=== PATIENT | female | born 1955 | race Caucasian/White ===

== ENCOUNTER 2016-09-09 12:03 | Outpatient (RCR) | payer OTHER ==
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
[~2016-09-09 12:03] MED LIST: AMLO10TA82 PO; AMLO5TAB2 PO; ASP81CT PO; ATOR40TA70 PO; CYCL10TA9 PO; DZPM2T PO; ENAL20TA PO; FLUC150T2 PO; Flexeril PO; GABA600T2 PO; GBPN300C PO; GLYB5TAB6 PO; HYDR-3812 PO; MECL-124 PO; METF100028 PO; METF500T4 PO; SULF-222 PO; TRAM50TA2 PO
== END 2016-09-15 | disposition home or self-care (01) ==
LOC: WOUNDCARE 12:03
PROVIDERS: ATTEND Nurse Practitioner
DX: L97.512 Non-pressure chronic ulcer of other part of right foot with fat layer exposed (principal); E11.621 Type 2 diabetes mellitus with foot ulcer; E11.42 Type 2 diabetes mellitus with diabetic polyneuropathy
CPT/HCPCS: 11042; 29445; 87070; 87075; 87077; 87186; 87205; 99212

== ENCOUNTER 2016-10-14 12:32 | Outpatient (RCR) | payer OTHER ==
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
== END 2016-10-14 16:00 | disposition home or self-care (01) ==
LOC: WOUNDCARE 12:32
PROVIDERS: ATTEND Nurse Practitioner
DX: L97.512 Non-pressure chronic ulcer of other part of right foot with fat layer exposed (principal); E11.621 Type 2 diabetes mellitus with foot ulcer; E11.42 Type 2 diabetes mellitus with diabetic polyneuropathy
CPT/HCPCS: 11042; 97597; 99212

== ENCOUNTER → 2016-11-27 | Outpatient (CLI) | payer OTHER ==
--- OUTSIDE RECORDS SUMMARY | 2016-11-27 13:26 | XMS REPORT | Continuity of Care Document ---
Author Author [facility] Organization [facility] Address Unknown Phone Unavailable Care Team Providers Care Inhalation Therapy Aide Name Role Phone TAYO SUTTON DO PCP Insurance Providers Payer Name Policy Number Subscriber Name Relationship [facility] [id number] Carla Robb 01 Self Pay Pending [employer] [id number] Rhoda Robb 18 Self / Same As Patient Advance Directives Directive Response Recorded Date/Time Advance Directives No 06/03/16 7:27am Health Care Power of Capacity Manager No 06/03/16 7:27am Organ Donor Yes [...] 07/15/2016 1:00pm 07/19/2016 2:21pm STAPH, COAG NEG (GREENHOUSE FLORIST) 07/15/2016 1:00pm 07/19/2016 2:21pm Procedures No known history of procedures. Encounters Encounter Location Arrival/Admit Date Discharge/Depart Date Attending Provider Discharged Recurring [facility] 09/09/16 12:03pm 11:59pm RAY PEACOCK APRN
--- NOTE | 2016-11-27 16:40 | Diagnostic Imaging Report ---
INDICATION: Ulcer on great toe. AP, oblique, and lateral views of the right foot are obtained and compared with 02/14/2016. FINDINGS: There are diffuse degenerative changes of the interphalangeal joints. There is no erosive bony lesion or acute fracture. There is plantar and posterior calcaneal spurring. IMPRESSION: Diffuse degenerative changes as above. No acute fracture or erosive bony lesion. Dictated by: Dictated on workstation # [id number]
== END ==
LOC: RAD 13:22
PROVIDERS: ATTEND Nurse Practitioner
DX: L97.512 Non-pressure chronic ulcer of other part of right foot with fat layer exposed (principal); E11.621 Type 2 diabetes mellitus with foot ulcer; E11.42 Type 2 diabetes mellitus with diabetic polyneuropathy
CPT/HCPCS: 73630

== ENCOUNTER 2017-01-02 09:00 | Outpatient (RCR) | payer OTHER ==
[2016-12-17 13:20] VITALS: BP 173/80
--- NOTE | 2016-12-17 14:06 | Diagnostic Imaging Report ---
INDICATION: Line placement. TECHNIQUE: Single view chest 1:48 PM. CORRELATION STUDY: 05/31/2012 FINDINGS: A right-sided central line has been placed. The catheter is folded on itself, tip redirected back laterally towards the direction of the arm in the right axilla. Heart size and mediastinum are stable. Minimal atelectasis right costophrenic angle. IMPRESSION: 1. Right-sided central line is malpositioned, folded on itself with the tip directed back down the arm. (This has been noted by members of the IV team.) Dictated by: Dictated on workstation # [id number]
[2016-12-17 14:19] LABS: ANION GAP 12 MMOL/L (5-14); BLOOD UREA NITROGEN 18 MG/DL (7-18); BUN/CREATININE RATIO 25; CARBON DIOXIDE 24 MMOL/L (21-32); CHLORIDE 102 MMOL/L (98-107); CREATININE SERUM 0.72 MG/DL (0.60-1.30); GFR ESTIMATED > 60; GLUCOSE 257 MG/DL (70-105); POTASSIUM 4.2 MMOL/L (3.6-5.0); SODIUM 138 MMOL/L (135-145)
--- NOTE | 2016-12-17 14:40 | Diagnostic Imaging Report ---
INDICATION: Central venous catheter evaluation 1409 hrs. Portable upright view of the chest is obtained. Since study of earlier in the day, there has been repositioning of right upper extremity PICC with catheter now extending to the level of the right atrium. No pneumothorax is identified and the lungs appear clear. IMPRESSION: Right upper extremity PICC reaches the right atrium. Dictated by: Dictated on workstation # [id number]
[2016-12-17 17:04] VITALS: BP 173/80
[2016-12-17 17:05] VITALS: BP 173/80
[2016-12-17 17:29] VITALS: BP 173/80
[2016-12-18] MEDS: VANCOMYCIN 1250 MG/NS 250 ML IVPB IV SCH ×4 (07:17→18:05)
[2016-12-18 08:24] VITALS: BP 166/73
[2016-12-18 18:30] VITALS: BP 184/73
[2016-12-19] MEDS: VANCOMYCIN INJECTION 1,500 MG in NS IV 500 ML 500 ML IV SCH ×2 (07:56→17:34)
[2016-12-19 09:51] VITALS: BP 166/72
[2016-12-19 19:06] VITALS: BP 178/75
[2016-12-20] MEDS: VANCOMYCIN INJECTION 1,500 MG in NS IV 500 ML 500 ML IV SCH ×2 (07:29→18:02)
[2016-12-20 09:26] VITALS: BP 170/74
[2016-12-20 18:00] VITALS: BP 188/79
[2016-12-20 19:55] VITALS: BP 188/79
[2016-12-21] MEDS: VANCOMYCIN INJECTION 1,500 MG in NS IV 500 ML 500 ML IV SCH ×2 (08:06→19:30)
[2016-12-21 08:11] VITALS: BP 176/82
[2016-12-21 21:29] VITALS: BP 197/76
[2016-12-22] MEDS: VANCOMYCIN INJECTION 1,500 MG in NS IV 500 ML 500 ML IV SCH ×2 (07:09→18:24)
[2016-12-22 07:37] VITALS: BP 160/76
[2016-12-22 18:00] VITALS: BP 168/78
[2016-12-22 20:51] VITALS: BP 168/78
[2016-12-23] MEDS: VANCOMYCIN INJECTION 1,500 MG in NS IV 500 ML 500 ML IV SCH ×2 (07:50→16:24)
[2016-12-23 09:03] VITALS: BP 197/85
[2016-12-23 16:15] VITALS: BP 0/0
[2016-12-24] MEDS: VANCOMYCIN 2000 MG/NS 500 ML IVPB IV SCH ×2 (07:15)
[2016-12-24] MEDS: VANCOMYCIN INJECTION 1,500 MG in NS IV 500 ML 500 ML IV SCH (07:15)
[2016-12-24 09:30] VITALS: BP 183/74
[2016-12-25 07:15] VITALS: BP 169/75
[2016-12-25] MEDS: VANCOMYCIN 2000 MG/NS 500 ML IVPB IV SCH ×2 (07:15)
[2016-12-25 09:27] VITALS: BP 169/75
[2016-12-26 07:30] VITALS: BP 172/76
[2016-12-26] MEDS: VANCOMYCIN 2000 MG/NS 500 ML IVPB IV SCH ×2 (07:30)
[2016-12-26] MEDS: VANCOMYCIN INJECTION 2,500 MG in NS IV 500 ML 500 ML IV SCH ×2 (07:32→07:53)
[2016-12-27] MEDS: VANCOMYCIN INJECTION 2,500 MG in NS IV 500 ML 500 ML IV SCH (08:06)
[2016-12-27 10:20] VITALS: BP 177/76
[2016-12-28] MEDS: VANCOMYCIN INJECTION 2,500 MG in NS IV 500 ML 500 ML IV SCH (08:51)
[2016-12-28 11:05] VITALS: BP 155/69
[2016-12-29] MEDS: VANCOMYCIN INJECTION 2,500 MG in NS IV 500 ML 500 ML IV SCH (07:14)
[2016-12-29 09:30] VITALS: BP 166/77
[2016-12-30] MEDS: VANCOMYCIN INJECTION 2,500 MG in NS IV 500 ML 500 ML IV SCH (07:05)
[2016-12-30 07:29] VITALS: BP 183/75
[2016-12-31] MEDS: VANCOMYCIN INJECTION 2,500 MG in NS IV 500 ML 500 ML IV SCH (07:13)
[2016-12-31 07:23] VITALS: BP 167/68
[2017-01-01] MEDS: VANCOMYCIN INJECTION 2,500 MG in NS IV 500 ML 500 ML IV SCH (07:23)
[2017-01-01 09:35] VITALS: BP 178/88
[~2017-01-02] VITALS: Ht 165.1 cm; Wt 86.2 kg
[~2017-01-02 09:00] MED LIST changes: +TROUGH ORDER-PHARMACY XX NR; +TROUGH ORDER-PHARMACY XX ONE; +VANCOMYCIN 1500 MG/NS 500 ML IVPB IV NR
[2017-01-02 09:48] VITALS: BP 181/98
== END 2017-03-17 | disposition home or self-care (01) ==
LOC: SDC 09:00
PROVIDERS: ATTEND Nurse Practitioner
DX: L97.512 Non-pressure chronic ulcer of other part of right foot with fat layer exposed (principal); E11.621 Type 2 diabetes mellitus with foot ulcer; E11.42 Type 2 diabetes mellitus with diabetic polyneuropathy; Z45.2 Encounter for adjustment and management of vascular access device
CPT/HCPCS: 36415; 36569; 36592; 71010; 76937; 80048; 80202; 96365; 96366; 99211

== ENCOUNTER → 2017-01-09 | Outpatient (CLI) | payer OTHER ==
[~2017-01-09] MED LIST changes: -TROUGH ORDER-PHARMACY XX NR; -TROUGH ORDER-PHARMACY XX ONE; -VANCOMYCIN 1500 MG/NS 500 ML IVPB IV NR
[2017-01-09 12:29] LABS: BASOPHILS # (AUTO) 0.1 10^3/uL (0.0-0.1); BASOPHILS % (AUTO) 1 % (0-10); EOSINOPHILS # (AUTO) 0.3 10^3/uL (0.0-0.3); EOSINOPHILS % (AUTO) 4 % (0-10); LYMPHOCYTES % (AUTO) 24 % (12-44); MEAN CORPUSCULAR HEMOGLOBIN 28 PG (25-34); MEAN CORPUSCULAR HGB CONC 32 G/DL (32-36); MEAN CORPUSCULAR VOLUME 87 FL (80-99); MEAN PLATELET VOLUME 8.9 FL (7.4-10.4); MONOCYTES # (AUTO) 0.6 X 10^3 (0.0-1.0); MONOCYTES % (AUTO) 7 % (0-12); NEUTROPHILS # (AUTO) 5.4 X 10^3 (1.8-7.8); NEUTROPHILS % (AUTO) 64 % (42-75); PLATELET COUNT 248 10^3/uL (130-400); RED BLOOD COUNT 4.91 10^6/uL (4.35-5.85); RED CELL DISTRIBUTION WIDTH 14.9 % (10.0-14.5); WHITE BLOOD COUNT 8.4 10^3/uL (4.3-11.0)
== END ==
LOC: LAB 12:15
PROVIDERS: ATTEND Family Medicine
DX: R06.02 Shortness of breath (principal); R53.1 Weakness; R60.9 Edema, unspecified
CPT/HCPCS: 36415; 85025; 85379

== ENCOUNTER 2017-01-13 13:00 | Outpatient (RCR) | payer OTHER ==
--- OUTSIDE RECORDS SUMMARY | 2016-10-21 12:00 | XMS REPORT | Continuity of Care Document ---
Author Author [facility] Organization [facility] Address Unknown Phone Unavailable Care Team Providers Care Tennis Ball Coverer Hand Name Role Phone TAYO SUTTON DO PCP Insurance Providers Payer Name Policy Number Subscriber Name Relationship [facility] [id number] Carla Robb 01 Self Pay Pending [employer] [id number] Rhoda Robb 18 Self / Same As Patient Advance Directives Directive Response Recorded Date/Time Advance Directives No 06/03/16 7:27am Health Care Power of Public Events Facilities Rental Manager No 06/03/16 7:27am Organ Donor Yes 06/03/16 [...] 07/15/2016 1:00pm 07/19/2016 2:21pm STAPH, COAG NEG (CONSERVATION PLANNER) 07/15/2016 1:00pm 07/19/2016 2:21pm Procedures No known history of procedures. Encounters Encounter Location Arrival/Admit Date Discharge/Depart Date Attending Provider Discharged Recurring [facility] 09/09/16 12:03pm 11:59pm RAY PEACOCK APRN
== END 2017-01-19 | disposition home or self-care (01) ==
LOC: WOUNDCARE 13:00
PROVIDERS: ATTEND Nurse Practitioner
DX: L97.512 Non-pressure chronic ulcer of other part of right foot with fat layer exposed (principal); E11.621 Type 2 diabetes mellitus with foot ulcer; E11.42 Type 2 diabetes mellitus with diabetic polyneuropathy; N18.4 Chronic kidney disease, stage 4 (severe); R60.1 Generalized edema
CPT/HCPCS: 11042; 15275; 29445; 87070; 87075; 87077; 87186; 87205; 99212

== ENCOUNTER 2017-02-10 09:39 | Outpatient (RCR) | payer OTHER | END 2017-02-10 16:00 | disposition home or self-care (01) | LOC: WOUNDCARE 09:39 | PROVIDERS: ATTEND Nurse Practitioner | DX: L97.512 Non-pressure chronic ulcer of other part of right foot with fat layer exposed (principal); E11.621 Type 2 diabetes mellitus with foot ulcer; E11.42 Type 2 diabetes mellitus with diabetic polyneuropathy; N18.4 Chronic kidney disease, stage 4 (severe); R60.1 Generalized edema | CPT/HCPCS: 11042; 29445; 99212 ==

== ENCOUNTER → 2017-02-19 | Outpatient (CLI) | payer OTHER ==
--- NOTE | 2017-02-19 07:54 | Diagnostic Imaging Report ---
INDICATION: Right upper quadrant pain TECHNIQUE: Multiple grayscale sonographic images were obtained of the right upper quadrant of the abdomen. CORRELATION STUDY: 06/01/2012 FINDINGS: LIVER: The liver measures 20 cm. Diffuse increased echogenicity suggestive is moderate to severe fatty infiltration. This does limited echo penetration and assessment of the liver parenchyma. GALLBLADDER: The gallbladder is present and demonstrates no evidence of shadowing gallstones or biliary sludge. No abnormal gallbladder wall thickening or pericholecystic fluid. COMMON BILE DUCT: Within normal limits at 5 mm. PANCREAS: Largely obscured and not well visualized. RIGHT KIDNEY: Measures 13.4 cm. No hydronephrosis. OTHER: None. IMPRESSION: 1. Negative for gallstones or bile duct dilatation. 2. Hepatomegaly with hepatic steatosis. Dictated by: Dictated on workstation # [id number]
== END ==
LOC: RAD 06:40
PROVIDERS: ATTEND Family Medicine
DX: R10.11 Right upper quadrant pain (principal); K76.0 Fatty (change of) liver, not elsewhere classified; R16.0 Hepatomegaly, not elsewhere classified
CPT/HCPCS: 76705

== ENCOUNTER → 2017-03-05 | Outpatient (CLI) | payer OTHER ==
[~2017-03-05] MED LIST changes: +CATHETER FLUSH 10 ML SYR IV PRN
== END ==
DX: K82.8 Other specified diseases of gallbladder (principal); R10.11 Right upper quadrant pain

== ENCOUNTER 2017-04-09 10:09 | Outpatient (RCR) | payer OTHER ==
[~2017-04-09 10:09] MED LIST changes: -CATHETER FLUSH 10 ML SYR IV PRN
== END 2017-04-13 16:00 | disposition home or self-care (01) ==
LOC: WOUNDCARE 10:09
PROVIDERS: ATTEND Nurse Practitioner
DX: E11.621 Type 2 diabetes mellitus with foot ulcer (principal); L97.512 Non-pressure chronic ulcer of other part of right foot with fat layer exposed
CPT/HCPCS: 11042; 29445; 87070; 87075; 87077; 87186; 87205

== ENCOUNTER → 2017-04-14 | Outpatient (CLI) | payer OTHER | LOC: WOUNDCARE 10:29 | PROVIDERS: ATTEND Nurse Practitioner | DX: E11.621 Type 2 diabetes mellitus with foot ulcer (principal); L97.512 Non-pressure chronic ulcer of other part of right foot with fat layer exposed; E11.42 Type 2 diabetes mellitus with diabetic polyneuropathy | CPT/HCPCS: 11042 ==

== ENCOUNTER → 2017-04-21 | Outpatient (CLI) | payer OTHER | LOC: WOUNDCARE 10:26 | PROVIDERS: ATTEND Nurse Practitioner | DX: E11.621 Type 2 diabetes mellitus with foot ulcer (principal); E11.42 Type 2 diabetes mellitus with diabetic polyneuropathy; L97.512 Non-pressure chronic ulcer of other part of right foot with fat layer exposed | CPT/HCPCS: 11042 ==

== ENCOUNTER → 2017-04-28 | Outpatient (CLI) | payer OTHER ==
[~2017-04-28] MED LIST changes: +ATOR10TA PO; +GABA-488 PO; +METF-478 PO
== END ==
LOC: WOUNDCARE 10:25
PROVIDERS: ATTEND Nurse Practitioner
DX: E11.621 Type 2 diabetes mellitus with foot ulcer (principal); E11.42 Type 2 diabetes mellitus with diabetic polyneuropathy; L97.512 Non-pressure chronic ulcer of other part of right foot with fat layer exposed
CPT/HCPCS: 11042

== ENCOUNTER → 2017-05-05 | Outpatient (CLI) | payer OTHER ==
[~2017-05-05] MED LIST changes: +DOXY100T2 PO
== END ==
LOC: WOUNDCARE 10:26
PROVIDERS: ATTEND Nurse Practitioner
DX: E11.621 Type 2 diabetes mellitus with foot ulcer (principal); E11.42 Type 2 diabetes mellitus with diabetic polyneuropathy; L97.512 Non-pressure chronic ulcer of other part of right foot with fat layer exposed
CPT/HCPCS: 11042

== ENCOUNTER 2017-05-06 16:30 | Observation (INO) | payer OTHER ==
[~2017-05-06] VITALS: Ht 165.1 cm; Wt 86.6 kg
[~2017-05-06 16:30] MED LIST changes: -ATOR10TA PO; -DOXY100T2 PO; -GABA-488 PO; -METF-478 PO
--- NOTE | 2017-05-06 19:05 | Diagnostic Imaging Report ---
INDICATION: Right arm pain. Right hand numbness. Headache today. High pain. EXAMINATION: CT brain without contrast, 05/06/2017. COMPARISON: 01/19/2011. FINDINGS: Diffuse scattered chronic appearing ischemic disease is seen in a periventricular distribution and throughout the deep white matter. There is no evidence for acute hemorrhage or infarct. There is no mass, mass effect or midline shift. No hydrocephalus noted. Atrophy is seen. Osseous structures are intact. Paranasal sinuses and mastoid air cells are clear. IMPRESSION: Chronic change with no acute abnormality appreciated. If there is continued concern, MRI recommended as early changes could be missed in the first 24 hours of infarct. Dictated by: Dictated on workstation # [id number]
--- NOTE | 2017-05-06 19:13 | Diagnostic Imaging Report ---
INDICATION: Complaining of pain to the top of the shoulder. Started this morning. No known injuries. EXAMINATION: Right shoulder, 05/06/2017. FINDINGS: Three views of the shoulder. Narrowing and spurring at the acromioclavicular joint is noted. Greater tuberosity demonstrates sclerotic changes consistent with chronic rotator cuff tendinopathy. No acute fractures or dislocations are appreciated. IMPRESSION: Chronic change of the shoulder with no acute osseous abnormality. Dictated by: Dictated on workstation # [id number]
--- NOTE | 2017-05-06 19:13 | Diagnostic Imaging Report ---
INDICATION: Fatigue and shortness of breath. EXAMINATION: Two-view chest dated 05/06/2017. COMPARISON: 12/17/2016. FINDINGS: The cardiomediastinal silhouette is unremarkable. The pulmonary vasculature is within normal limits. The lungs and pleural spaces are clear. IMPRESSION: No evidence of an acute cardiopulmonary process. Dictated by: Dictated on workstation # [id number]
[2017-05-06 19:16] LABS: BILIRUBIN,URINE NEGATIVE (NEGATIVE); KETONES,URINE 1+ (NEGATIVE); LEUKOCYTE ESTERASE ,URINE 1+ (NEGATIVE); NITRITE,URINE NEGATIVE (NEGATIVE); PH,URINE 5 (5-9); PROTEIN,URINE 1+ (NEGATIVE); UROBILINOGEN,URINE NORMAL (NORMAL)
[2017-05-06 19:16] LABS: BASOPHILS % (AUTO) 0 % (0-10); EOSINOPHILS # (AUTO) 0.1 10^3/uL (0.0-0.3); EOSINOPHILS % (AUTO) 1 % (0-10); LYMPHOCYTES % (AUTO) 21 % (12-44); MEAN CORPUSCULAR HEMOGLOBIN 28 PG (25-34); MEAN CORPUSCULAR HGB CONC 32 G/DL (32-36); MEAN CORPUSCULAR VOLUME 87 FL (80-99); MEAN PLATELET VOLUME 9.7 FL (7.4-10.4); MONOCYTES # (AUTO) 0.9 X 10^3 (0.0-1.0); MONOCYTES % (AUTO) 6 % (0-12); NEUTROPHILS # (AUTO) 10.7 X 10^3 (1.8-7.8); NEUTROPHILS % (AUTO) 73 % (42-75); PLATELET COUNT 236 10^3/uL (130-400); RED BLOOD COUNT 4.51 10^6/uL (4.35-5.85); RED CELL DISTRIBUTION WIDTH 14.7 % (10.0-14.5); WHITE BLOOD COUNT 14.7 10^3/uL (4.3-11.0)
--- NOTE | 2017-05-06 19:20 | ED General ---
General Chief Complaint: General Problems/Pain Stated Complaint: RIGHT ARM PAIN Nursing Triage Note: PT CO OF R UPPER ARM AND SHOULDER PAIN, STATES IS VERY PAINFUL, PT HAS POOR ROM OF R SHOULDER, PT STATES HAS ELEVATED SUGARS TODAY, PT HAS BASEBALL UMPIRE FOR LITTLE LEAGUE DIABETIC ULCER ON R FOOT, CAST IN PLACE, PT STATES IS STIFF AND SORE ALL OVER Nursing Sepsis Screen: No Definite Risk Source of Information: Patient, Old Records Exam Limitations: No Limitations History of Present Illness Time Seen by Provider: 18:14 Initial Comments This 62-year-old woman presents to the emergency room with primary complaint of right shoulder pain and stiffness that travels down to the hand. 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 It is unclear for weakness is secondary to pain or a primary weakness. She denies any fever, nausea, vomiting, or diarrhea. She does have some shortness of breath described as difficulty taking a deep breath. She woke around 05:00 this morning and felt well at baseline. She went back to sleep and then woke 08:00 with these symptoms. She additionally describes feeling fatigued and generally weak and achy all over, to the extent that she had much difficulty getting up out of bed. Her last known well time was therefore 05:00. She continued to have pain in the right shoulder and paresthesias on the right upper extremity all day. Patient has a cast on the right lower extremity that was placed by Salazar Fuller yesterday as part of treatment for chronic diabetic ulcer on the right great toe. Allergies and Home Medications Allergies Coded Allergies: No Known Drug Allergies (Unverified , 01/19/11) Home Medications Aspirin 81 Mg Chew, 81 MG PO DAILY, (Reported) Enalapril Maleate 20 Mg Tablet, 20 MG PO BID, (Reported) Gabapentin 300 Mg Cap, 600 MG PO AM,NOON,EVENING, (Reported) TAKES TWO (300MG) CAPSULES IN THE MORNING, AT NOON AND IN THE EVENING Glyburide 5 Mg Tablet, 10 MG PO BIDAC, (Reported) TAKE TWO (5 MG) TABLETS BEFORE BREAKFAST AND SUPPER Metformin HCl 500 Mg Tablet, 2,000 MG PO EVENING, (Reported) TAKES FOUR (500 MG) TABLETS IN THE EVENING Tramadol HCl 50 Mg Tablet, 50 MG PO TID, (Reported) Constitutional: see HPI, weakness EENTM: no symptoms reported Respiratory: no symptoms reported Cardiovascular: no symptoms reported Gastrointestinal: no symptoms reported Genitourinary: no symptoms reported Musculoskeletal: see HPI Skin: see HPI Psychiatric/Neurological: See HPI Hematologic/Lymphatic: No Symptoms Reported Past Domkqjn-Ulhazd-Yyjotk Hx Patient Social History Alcohol Use: Denies Use Recreational Drug Use: No Smoking Status: Never a Smoker Former Smoker, Quit: Jun 03, 1990 Recent Foreign Travel: No Contact w/Someone Who Travel: No Recent Infectious Disease Expo: No Recent Hopitalizations: Yes Physical Abuse: No Sexual Abuse: No Immunizations Up To Date Tetanus Booster (TDap): Less than 5yrs Date of Pneumonia Vaccine: Jun 03, 2011 Surgeries History of Surgeries: Yes (tubal ligation) Surgeries: Tubal Ligation, Vasectomy (Right lower extremity angioplasty) Respiratory History of Respiratory Disorde: No Cardiovascular History of Cardiac Disorders: Yes Cardiac Disorders: Hypertension, Peripheral Vascular Neurological History of Neurological Disord: Yes Neurological Disorders: Neuropathy 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 System Hx 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 Disorders: Yes Genitourinary History of Genitourinary Disor: No Gastrointestinal History of Gastrointestinal Di: No Musculoskeletal History of Musculoskeletal Dis: Yes Musculoskeletal Disorders: Fibromyalgia Endocrine History of Endocrine Disorders: Yes Endocrine Disorders: Diabetes, Non-Insulin dep Cancer History of Cancer: No Psychosocial History of Psychiatric Problem: No Suicide Risk Score: 0 Integumentary History of Skin or Integumenta: No Blood Transfusions History of Blood Disorders: No Adverse Reaction to a Blood Tr: No Family Medical History Significant Family History: No Pertinent Family Hx Physical Exam Vital Signs Vital Sign - Last 12Hours 05/06/17 05/06/17 17:15 23:04 Temp 96.8 Pulse 102 Resp 18 B/P (MAP) 161/65 Pulse Ox 95 O2 Delivery Room Air Capillary Refill : Less Than 3 Seconds General Appearance: No Apparent Distress, WD/WN, Other (Appears to have malaise and somnolence) HEENT: PERRL/EOMI, TMs Normal, Normal ENT Inspection, Pharynx Normal Neck: Normal Inspection Respiratory: Lungs Clear, Normal Breath Sounds, No Accessory Muscle Use, No Respiratory Distress Cardiovascular: Regular Rate, Rhythm, No Edema, No Murmur Gastrointestinal: Normal Bowel Sounds, Non Tender, Soft Extremity: No Pedal Edema, Other (Diabetic foot ulcer on the right great toe. Smaller spot of erythema on the second toe. 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 Norm as Tested Skin: Normal Color, Warm/Dry, Other (See above) Focused Exam Evaluation Lactate Level Laboratory Tests 05/06/17 20:20: Lactic Acid Level 1.70 Lactic Acid Level Progress/Results/Core Measures Results/Orders Lab Results Laboratory Tests Test 05/06/17 19:05 05/06/17 19:10 05/06/17 20:20 05/07/17 06:00 Range/Units Urine Color YELLOW Urine Clarity SLIGHTLY CLOUDY Urine pH 5 5-9 Urine Specific [place] 1.025 H 1.016-1.022 Urine Protein 1+ H NEGATIVE Urine Glucose (UA) 4+ H NEGATIVE Urine Ketones 1+ H NEGATIVE Urine Nitrite NEGATIVE NEGATIVE Urine Bilirubin NEGATIVE NEGATIVE Urine Urobilinogen NORMAL NORMAL MG/DL Urine Leukocyte Esterase 1+ H NEGATIVE Urine RBC (Auto) NEGATIVE NEGATIVE Urine RBC NONE /HPF Urine WBC 0-2 /HPF Urine Squamous Epithelial Cells 5-10 /HPF Urine Crystals NONE /LPF Urine Bacteria TRACE /HPF Urine Casts NONE /LPF Urine Mucus NEGATIVE /LPF Urine Culture Indicated NO White Blood Count 14.7 H 8.9 4.3-11.0 10^3/uL Red Blood Count 4.51 4.09 L 4.35-5.85 10^6/uL Hemoglobin 12.6 11.5 11.5-16.0 G/DL Hematocrit 39 36 35-52 % Mean Corpuscular Volume 87 88 80-99 FL Mean Corpuscular Hemoglobin 28 28 25-34 PG Mean Corpuscular Hemoglobin Concent 32 32 32-36 G/DL Red Cell Distribution Width 14.7 H 14.6 H 10.0-14.5 % Platelet Count 236 207 130-400 10^3/uL Mean Platelet Volume 9.7 10.0 7.4-10.4 FL Neutrophils (%) (Auto) 73 73 42-75 % Lymphocytes (%) (Auto) 21 19 12-44 % Monocytes (%) (Auto) 6 7 0-12 % Eosinophils (%) (Auto) 1 1 0-10 % Basophils (%) (Auto) 0 0 0-10 % Neutrophils # (Auto) 10.7 H 6.4 1.8-7.8 X 10^3 Lymphocytes # (Auto) 3.0 1.7 1.0-4.0 X 10^3 Monocytes # (Auto) 0.9 0.7 0.0-1.0 X 10^3 Eosinophils # (Auto) 0.1 0.1 0.0-0.3 10^3/uL Basophils # (Auto) 0.0 0.0 0.0-0.1 10^3/uL Neutrophils % (Manual) 58 % Lymphocytes % (Manual) 36 % Monocytes % (Manual) 3 % Eosinophils % (Manual) 0 % Basophils % (Manual) 0 % Metamyelocytes % 1 % Band Neutrophils 2 % Blood Morphology Comment NORMAL Erythrocyte Sedimentation Rate 40 H 33 H 0-30 MM/HR Sodium Level 135 137 135-145 MMOL/L Potassium Level 4.3 4.2 3.6-5.0 MMOL/L Chloride Level 100 101 98-107 MMOL/L Carbon Dioxide Level 24 25 21-32 MMOL/L Anion Gap 11 11 5-14 MMOL/L Blood Urea Nitrogen 22 H 16 7-18 MG/DL Creatinine 0.81 0.71 0.60-1.30 MG/DL Estimat Glomerular Filtration Rate > 60 > 60 BUN/Creatinine Ratio 27 23 Glucose Level 261 H 268 H 70-105 MG/DL Calcium Level 10.1 9.6 8.5-10.1 MG/DL Magnesium Level 1.7 L 1.8-2.4 MG/DL Total Bilirubin 0.4 0.4 0.1-1.0 MG/DL Aspartate Amino Transf (AST/SGOT) 14 13 5-34 U/L Alanine Aminotransferase (ALT/SGPT) 32 26 0-55 U/L Alkaline Phosphatase 64 54 40-136 U/L Total Creatine Kinase 14 L 29-168 U/L C-Reactive Protein High Sensitivity 14.05 H 16.92 H 0.00-0.50 MG/DL Total Protein 7.0 6.5 6.4-8.2 GM/DL Albumin 3.9 3.6 3.2-4.5 GM/DL TSH [place] Testing 2.00 0.35-4.94 UIU/ML Rheumatoid Factor NEGATIVE NEGATIVE Lactic Acid Level 1.70 0.50-2.00 MMOL/L My Orders Orders - RADHA HEARD MD Cbc With Automated Diff (05/06/17 18:26) Comprehensive Metabolic Panel (05/06/17 18:26) Creatine Kinase (05/06/17 18:26) Magnesium (05/06/17 18:26) Thyroid Analyzer (05/06/17 18:26) Ua Culture If Indicated (05/06/17 18:26) Saline Lock/Iv-Start (05/06/17 18:26) Monitor-Rhythm Ecg Trace Only (05/06/17 18:26) Chest Pa/Lat (2 View) (05/06/17 18:26) Shoulder, Right, 3 Views (05/06/17 18:26) Ct Head Wo-R/O Stroke (05/06/17 18:26) Erythrocyte Sedimentation Rate (05/06/17 18:40) Hs C Reactive Protein (05/06/17 18:40) Rheumatoid Factor (05/06/17 18:40) Manual Differential (05/06/17 19:10) Blood Culture (05/06/17 19:50) Lactic Acid Analyzer (05/06/17 19:50) Tibia/Fibula, Right, 2 Views (05/06/17 19:54) Foot, Right, 3 View (05/06/17 19:54) Piperacillin Sodium/Tazobactam (Zosyn Vi (05/06/17 20:00) Wound Culture (05/06/17 22:09) Cho 60g/M 3snack (16-2000 Maxim) (05/07/17 Breakfast) Medications Given in ED Current Medications Medications Dose Ordered Sig/[place] Route Start Time Stop Time Status Last Admin Dose Admin Piperacillin Sod/ Tazobactam Sod 4.5 gm/Sodium Chloride 100 ml @ 200 mls/hr ONCE ONCE IV 05/06/17 20:00 05/06/17 20:29 DC 05/06/17 20:30 200 MLS/HR Vital Signs/I&O Vital Sign - Last 12Hours 05/06/17 05/06/17 05/07/17 23:04 23:15 04:00 Temp 97.1 98.1 98.2 Pulse 100 92 95 Resp 18 20 18 B/P (MAP) 135/59 138/64 Pulse Ox 97 96 93 O2 Delivery Room Air Room Air Room Air Blood Pressure Mean: 97 Progress Note #1: Time: 19:55 Progress Note Imaging studies are unremarkable. I have no explanation for the right sided pain and weakness. Labs were reviewed and are concerning for signs of infection. CRP, ESR, and WBC are all significantly elevated. Blood culture and lactic acid have been drawn as there is now concern for sepsis. X-rays of the right foot and tib-fib will be obtained as patient has a chronic wound there which may be a source of infection causing sepsis. Zosyn was ordered for initial antibiotic therapy. Progress Note #2: Time: 20:15 Progress Note Given labs concerning for infection, Dr. White was consulted by phone regarding the right shoulder pain. Because the shoulder is not red, hot, or swollen, he doubts shoulder is involved in the abnormal labs. He states adhesive capsulitis is common in diabetic women in this age group. This is a much more likely etiology for her shoulder pain. Blood cultures and lactic acid were obtained. Lactic acid was not significantly elevated. Because patient does have a diabetic foot ulcer with prior positive cultures, sepsis will be presumed. Antibiotic therapy with Zosyn was initiated. Case was reviewed with Dr. Sutton to agreed with admission overnight and monitoring labs. He suggested continuing Zosyn for treatment of the murray sensitive staph found on the prior culture. Dr. Valerio was also consulted. He recommends removing the cast and culturing the wound if possible. He will see the patient in the morning. Sepsis is a concern but not confirmed as there is no definite source of infection. The ulcer was appropriate treated with doxycycline after the last culture. Preliminary wound culture and blood cultures will help determine if patient truly has sepsis. Progress Note #3: Time: 21:38 Progress Note Culture results were further reviewed. On prior review of chart the corynebacterium sensitivity was not found. Based on further review, antibiotic therapy will be changed to vancomycin and clindamycin. Diagnostic Imaging Diagonstic Imaging: Xray Plain Films/CT/US/NM/MRI: chest Comments Chest x-ray viewed by me and report reviewed. See report below: NAME: BRYSON ROBB [facility] REC#: [id number] PT STATUS: REG ER : 1955 PHYSICIAN: RADHA HEARD MD ADMIT DATE: 05/06/17/ER Draft Date of Exam:05/06/17 CHEST PA/LAT (2 VIEW) INDICATION: Fatigue and shortness of breath. EXAMINATION: Two-view chest dated 05/06/2017. COMPARISON: 12/17/2016. FINDINGS: The cardiomediastinal silhouette is unremarkable. The pulmonary vasculature is within normal limits. The lungs and pleural spaces are clear. IMPRESSION: No evidence of an acute cardiopulmonary process. Dictated on workstation # [id number] Dict: 05/06/171908 Trans: 05/06/17 [id number] Interpreted by: TERRENCE GILL MD Diagonstic Imaging: CT Plain Films/CT/US/NM/MRI: head Comments CT head viewed by me and report reviewed. See report below: NAME: BRYSON ROBB [facility] REC#: [id number] PT STATUS: REG ER : 1955 PHYSICIAN: RADHA HEARD MD ADMIT DATE: 05/06/17/ER Draft Date of Exam:05/06/17 CT HEAD WO-R/O STROKE INDICATION: Right arm pain. Right hand numbness. Headache today. High pain. EXAMINATION: CT brain without contrast, 05/06/2017. COMPARISON: 01/19/2011. FINDINGS: Diffuse scattered chronic appearing ischemic disease is seen in a periventricular distribution and throughout the deep white matter. There is no evidence for acute hemorrhage or infarct. There is no mass, mass effect or midline shift. No hydrocephalus noted. Atrophy is seen. Osseous structures are intact. Paranasal sinuses and mastoid air cells are clear. IMPRESSION: Chronic change with no acute abnormality appreciated. If there is continued concern, MRI recommended as early changes could be missed in the first 24 hours of infarct. Dictated on workstation # [id number] Dict: 05/06/171899 Trans: 05/06/171904 [facility] [id number] Interpreted by: TERRENCE GILL MD Diagonstic Imaging: Xray Plain Films/CT/US/NM/MRI: other (right shoulder) Comments X-ray of the right shoulder viewed by me and report reviewed. See report below: NAME: BRYSON ROBB [facility] REC#: [id number] PT STATUS: REG ER : 1955 PHYSICIAN: RADHA HEARD MD ADMIT DATE: 05/06/17/ER Draft Date of Exam:05/06/17 SHOULDER, RIGHT, 3 VIEWS INDICATION: Complaining of pain to the top of the shoulder. Started this morning. No known injuries. EXAMINATION: Right shoulder, 05/06/2017. FINDINGS: Three views of the shoulder. Narrowing and spurring at the acromioclavicular joint is noted. Greater tuberosity demonstrates sclerotic changes consistent with chronic rotator cuff tendinopathy. No acute fractures or dislocations are appreciated. IMPRESSION: Chronic change of the shoulder with no acute osseous abnormality. Dictated on workstation # [id number] Dict: 05/06/171909 Trans: 05/06/171911 [facility] [id number] Interpreted by: TERRENCE GILL MD Departure Communication Time/Spoke to Admitting Phy: 21:[address] Sutton Time/Spoke to Consulting Physi: 21:30 Communication/Consulting Dr. Valerio Impression Impression: Primary Impression: possible sepsis Additional Impressions: Diabetic ulcer of left foot Qualified Codes: E13.621 - Other specified diabetes mellitus with foot ulcer; L97.529 - Non-pressure chronic ulcer of other part of left foot with unspecified severity Right shoulder pain Qualified Codes: M25.511 - Pain in right shoulder Right arm weakness Disposition: 09 ADMITTED INPATIENT Condition: Improved Admissions Decision to Admit Reason: Admit from ER (General) Decision to Admit/Date: May 06, 2017 Time/Decision to Admit Time: 21:25 Departure-Patient Inst. Referrals: TAYO SUTTON DO (PCP/Family) Primary Care Physician RADHA HEARD MD May 06, 2017 7:20 pm
[2017-05-06 19:26] LABS: WBC,URINE 0-2 /HPF
[2017-05-06 19:31] LABS: BAND NEUTROPHILS 2 %; BASOPHILS % (MANUAL) 0 %; EOSINOPHILS % (MANUAL) 0 %; LYMPHOCYTES % (MANUAL) 36 %; METAMYELOCYTES % 1 %; NEUTROPHILS % (MANUAL) 58 %
[2017-05-06 19:37] LABS: ALANINE AMINOTRANSFERASE 32 U/L (0-55); ALBUMIN 3.9 GM/DL (3.2-4.5); ANION GAP 11 MMOL/L (5-14); ASPARTATE AMINO TRANSFERASE 14 U/L (5-34); BILIRUBIN,TOTAL 0.4 MG/DL (0.1-1.0); BLOOD UREA NITROGEN 22 MG/DL (7-18); BUN/CREATININE RATIO 27; CALCIUM 10.1 MG/DL (8.5-10.1); CARBON DIOXIDE 24 MMOL/L (21-32); CHLORIDE 100 MMOL/L (98-107); CREATINE KINASE 14 U/L (29-168); CREATININE SERUM 0.81 MG/DL (0.60-1.30); GFR ESTIMATED > 60; GLUCOSE 261 MG/DL (70-105); MAGNESIUM 1.7 MG/DL (1.8-2.4); POTASSIUM 4.3 MMOL/L (3.6-5.0); SODIUM 135 MMOL/L (135-145); hs C REACTIVE PROTEIN 14.05 MG/DL (0.00-0.50)
[2017-05-06 19:45] LABS: ERYTHROCYTE SEDIMENTATION RATE 40 MM/HR (0-30)
[2017-05-06] MEDS ORDERED: PIPERACILLIN SODIUM/TAZOBACTAM 4.5 GM in NS (IVPB) 100 ML IV ONE (20:00)
--- NOTE | 2017-05-06 20:20 | Diagnostic Imaging Report ---
INDICATION: Osteomyelitis. EXAMINATION: Three views of the right foot were obtained. FINDINGS: There is no fracture or dislocation seen. There is no appreciable osteolytic change. Some of the bone detail is obscured by an opaque cast. IMPRESSION: Negative right foot. Dictated by: Dictated on workstation # [id number]
--- NOTE | 2017-05-06 20:21 | Diagnostic Imaging Report ---
INDICATION: Right lower leg pain. EXAMINATION: AP and lateral views of the right tibia and fibula were obtained. FINDINGS: There is arterial calcification. There is no fracture or dislocation. IMPRESSION: No acute abnormality is seen in the tibia or fibula. Dictated by: Dictated on workstation # [id number]
[2017-05-06 23:15] VITALS: BP 135/59
[2017-05-06] MEDS ORDERED: PATIENT MAY USE OWN MEDS, ALL MC SCH (23:30)
[2017-05-06] MEDS ORDERED: CATHETER FLUSH 10 ML SYR IV PRN (23:45)
[2017-05-06] MEDS ORDERED: VANCOMYCIN 1 GM/NS 250 ML IVPB IV ONE ×2 (23:45)
[2017-05-06] MEDS ORDERED: fentaNYL INJECTION 100 MCG/2 ML AMP IV PRN (23:45)
[2017-05-06] MEDS: CLINDAMYCIN 900 MG/NS 50 ML IVPB IV SCH ×2 (23:57)
[2017-05-07 04:00] VITALS: BP 138/64
[2017-05-07] MEDS: CATHETER FLUSH 10 ML SYR IV SCH ×3 (05:24→21:15)
[2017-05-07 06:22] LABS: BASOPHILS % (AUTO) 0 % (0-10); EOSINOPHILS # (AUTO) 0.1 10^3/uL (0.0-0.3); EOSINOPHILS % (AUTO) 1 % (0-10); LYMPHOCYTES # (AUTO) 1.7 X 10^3 (1.0-4.0); LYMPHOCYTES % (AUTO) 19 % (12-44); MEAN CORPUSCULAR HEMOGLOBIN 28 PG (25-34); MEAN CORPUSCULAR HGB CONC 32 G/DL (32-36); MEAN CORPUSCULAR VOLUME 88 FL (80-99); MONOCYTES # (AUTO) 0.7 X 10^3 (0.0-1.0); MONOCYTES % (AUTO) 7 % (0-12); NEUTROPHILS # (AUTO) 6.4 X 10^3 (1.8-7.8); NEUTROPHILS % (AUTO) 73 % (42-75); PLATELET COUNT 207 10^3/uL (130-400); RED BLOOD COUNT 4.09 10^6/uL (4.35-5.85); RED CELL DISTRIBUTION WIDTH 14.6 % (10.0-14.5); WHITE BLOOD COUNT 8.9 10^3/uL (4.3-11.0)
[2017-05-07 06:41] LABS: ERYTHROCYTE SEDIMENTATION RATE 33 MM/HR (0-30)
[2017-05-07 06:55] LABS: ALANINE AMINOTRANSFERASE 26 U/L (0-55); ALBUMIN 3.6 GM/DL (3.2-4.5); ANION GAP 11 MMOL/L (5-14); ASPARTATE AMINO TRANSFERASE 13 U/L (5-34); BILIRUBIN,TOTAL 0.4 MG/DL (0.1-1.0); BLOOD UREA NITROGEN 16 MG/DL (7-18); BUN/CREATININE RATIO 23; CALCIUM 9.6 MG/DL (8.5-10.1); CARBON DIOXIDE 25 MMOL/L (21-32); CHLORIDE 101 MMOL/L (98-107); CREATININE SERUM 0.71 MG/DL (0.60-1.30); GFR ESTIMATED > 60; GLUCOSE 268 MG/DL (70-105); POTASSIUM 4.2 MMOL/L (3.6-5.0); SODIUM 137 MMOL/L (135-145); TOTAL PROTEIN 6.5 GM/DL (6.4-8.2); hs C REACTIVE PROTEIN 16.92 MG/DL (0.00-0.50)
[2017-05-07 08:00] VITALS: BP 130/63
--- NOTE | 2017-05-07 08:03 | History & Physicial ---
History of Present Illness History of Present Illness Reason for visit/HPI patient came out to the emergency room last night. Pain in the right upper shoulder and problems moving the right hand. Patient had problem picking up her right arm Patient has a chronic ulcer on the right foot. Patient had a cast put on right foot yesterday by wound care. Patient has chronic decubitis ulcer on right foot. Patient woke up yesterday could move. Blood tests show leukocytosis and elevated sedimentation rate and CRP. Serum lactic acid normal. Patient meeting criteria for sepsis area Patient admitted. Previous surgery tubal ligation and right leg to open vessels. Family history diabetes and heart disease Date of Admission May 06, 2017 at 22:44 Time Seen by Provider: 07:45 I consulted on this patient on 05/07/17 07:54 Attending Physician Nino Sutton DO Admitting Physician Nino Sutton DO Consult Allergies and Home Medications Allergies Coded Allergies: No Known Drug Allergies (Unverified , 01/19/11) Home Medications Aspirin 81 Mg Chew, 81 MG PO DAILY, (Reported) Enalapril Maleate 20 Mg Tablet, 20 MG PO BID, (Reported) Gabapentin 300 Mg Cap, 600 MG PO AM,NOON,EVENING, (Reported) TAKES TWO (300MG) CAPSULES IN THE MORNING, AT NOON AND IN THE EVENING Glyburide 5 Mg Tablet, 10 MG PO BIDAC, (Reported) TAKE TWO (5 MG) TABLETS BEFORE BREAKFAST AND SUPPER Metformin HCl 500 Mg Tablet, 2,000 MG PO EVENING, (Reported) TAKES FOUR (500 MG) TABLETS IN THE EVENING Tramadol HCl 50 Mg Tablet, 50 MG PO TID, (Reported) Past Ptbakzs-Clfxep-Pnhxij Hx Patient Social History Marrital Status: Employed/Student: employed Alcohol Use: Denies Use Recreational Drug Use: No Smoking Status: Former Smoker Former Smoker, Quit: Jun 03, 1990 Type Used: Cigarettes Physical Abuse Screen: No Sexual Abuse: No Recent Foreign Travel: No Contact w/other who traveled: No Recent Hopitalizations: No Recent Infectious Disease Expo: No Immunizations Up To Date Tetanus Booster (TDap): Less than 5yrs Pediatric: Yes Date of Pneumonia Vaccine: Jun 03, 2011 Seasonal Allergies Seasonal Allergies: No Surgeries Yes (tubal ligation) Tubal Ligation Respiratory No Currently Using CPAP: No Currently Using BIPAP: No Cardiovascular Yes Hypertension, Peripheral Vascular Neurological Yes Neuropathy 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 System : No Hx 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 Disorders: Yes Female 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 Disorders: Denies Genitourinary No Gastrointestinal Yes Gall Bladder Disease Musculoskeletal Yes Fibromyalgia Endocrine History of Endocrine Disorders: Yes Endocrine Disorders: Diabetes, Non-Insulin dep Are Your Blood Sugars Over 250: Yes (in the last 2 months they have not been at or over 250) HEENT History of HEENT Disorders: No Loss of Vision: Denies Hearing Impairment: Denies Cancer No Psychosocial History of Psychiatric Problem: No Integumentary History of Skin or Integumenta: No Blood Transfusions History of Blood Disorders: No Adverse Reaction to a Blood Tr: No Family Medical History Significant Family History: No Pertinent Family Hx Family Hx: Cardiovascular disease 19 MOTHER G8 BROTHER G8 BROTHER Diabetes mellitus 19 FATHER 19 MOTHER G8 BROTHER G8 SISTER FH: brain tumor FH: lung cancer FHx: peripheral neuropathy Lung c Neuro Constitutional: malaise, weakness EENTM: no symptoms reported Respiratory: no symptoms reported Cardiovascular: no symptoms reported Gastrointestinal: no symptoms reported Genitourinary: no symptoms reported Musculoskeletal: other (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, unable to make a fist with right hand) Physical Exam Vital Signs Vital Sign - Last 12Hours 05/06/17 05/06/17 17:15 23:04 Temp 96.8 Pulse 102 Resp 18 B/P (MAP) 161/65 Pulse Ox 95 O2 Delivery Room Air Capillary Refill : Less Than 3 Seconds General Appearance: No Apparent Distress, WD/WN Eyes: Bilateral Eye Normal Inspection HEENT: Normal ENT Inspection Neck: Full Range of Motion, Normal Inspection Respiratory: Chest Non Tender, Lungs Clear, Normal Breath Sounds, No Accessory Muscle Use, No Respiratory Distress Cardiovascular: Regular Rate, Rhythm, No Murmur Gastrointestinal: Non Tender, Soft Extremity: Other (pain in right shoulder and weakness of right hand) Assessment/Plan Assessment and Plan probable sepsis. Diabetic ulcer of foot area Right shoulder pain. Right hand weakness. Diabetes. Problems: Clinical Quality Measures DVT/VTE Risk/Contraindication: Risk Factor Score Per Nursin RFS Level Per Nursing on Admit: 4+=Very High NINO SUTTON DO May 07, 2017 08:03
[2017-05-07] MEDS: CLINDAMYCIN 900 MG/NS 50 ML IVPB IV SCH ×6 (08:16→23:18)
[2017-05-07] MEDS: ENOXAPARIN 40 MG/0.4 ML (LOVENOX) SYR SC SCH (08:56)
[2017-05-07] MEDS: VANCOMYCIN 1250 MG/NS 250 ML IVPB IV SCH ×4 (08:56→18:46)
[2017-05-07] MEDS ORDERED: METF-478 PO ×2 (10:38)
[2017-05-07] MEDS ORDERED: GABA-488 PO ×2 (10:38)
[2017-05-07 12:00] VITALS: BP 142/82
[2017-05-07] MEDS: GABAPENTIN 300 MG (NEURONTIN) CAP PO SCH (12:26)
--- NOTE | 2017-05-07 15:31 | Wound Care Progress Note ---
Subjective Subjective Subjective/Events-last exam 62 year old female admitted last PM for possible sepsis. Noted to have Total Contact Cast covering open wound of R great toe. Cast removed; wound cultured. No evidence of infection. PMH: DM, HTN, PVD Review of Systems Date Seen by Provider: May 07, 2017 Time Seen by Provider: 14:30 General: No Chills, Fatigue Pulmonary: No Dyspnea Cardiovascular: No: Chest Pain Objective Exam Last Set of Vital Signs Vital Signs Date Time Temp Pulse Resp B/P (MAP) Pulse Ox O2 Delivery O2 Flow Rate FiO2 05/07/17 12:00 98.2 67 20 142/82 97 Room Air Capillary Refill : Less Than 3 Seconds I&O Intake and Output 05/08/17 00:00 Intake Total 636 ml Balance 636 ml Intake Oral 330 ml IV Total 306 ml # Voids 1 General: Alert, No Acute Distress Lungs: Normal Air Movement Skin: Other (R great toe -- 0.4 x 0.1 x 0.1 cm 100% regenerating tissue.) Results Lab Laboratory Tests 05/06/17 19:05: Urine Color YELLOW, Urine Clarity SLIGHTLY CLOUDY, Urine pH 5, Urine Specific [place] 1.025H, Urine Protein 1+H, Urine Glucose (UA) 4+H, Urine Ketones 1+H, Urine Nitrite NEGATIVE, Urine Bilirubin NEGATIVE, Urine Urobilinogen NORMAL, Urine Leukocyte Esterase 1+H, Urine RBC (Auto) NEGATIVE, Urine RBC NONE, Urine WBC 0-2, Urine Squamous Epithelial Cells 5-10, Urine Crystals NONE, Urine Bacteria TRACE, Urine Casts NONE, Urine Mucus NEGATIVE, Urine Culture Indicated NO 05/06/17 19:10: White Blood Count 14.7H, Red Blood Count 4.51, Hemoglobin 12.6, Hematocrit 39, Mean Corpuscular Volume 87, Mean Corpuscular Hemoglobin 28, Mean Corpuscular Hemoglobin Concent 32, Red Cell Distribution Width 14.7H, Platelet Count 236, Mean Platelet Volume 9.7, Neutrophils (%) (Auto) 73, Lymphocytes (%) (Auto) 21, Monocytes (%) (Auto) 6, Eosinophils (%) (Auto) 1, Basophils (%) (Auto) 0, Neutrophils # (Auto) 10.7H, Lymphocytes # (Auto) 3.0, Monocytes # (Auto) 0.9, Eosinophils # (Auto) 0.1, Basophils # (Auto) 0.0, Neutrophils % (Manual) 58, Lymphocytes % (Manual) 36, Monocytes % (Manual) 3, Eosinophils % (Manual) 0, Basophils % (Manual) 0, Metamyelocytes % 1, Band Neutrophils 2, Blood Morphology Comment NORMAL, Erythrocyte Sedimentation Rate 40H, Sodium Level 135 , Potassium Level 4.3, Chloride Level 100, Carbon Dioxide Level 24, Anion Gap 11 , Blood Urea Nitrogen 22H, Creatinine 0.81, Estimat Glomerular Filtration Rate > 60, BUN/Creatinine Ratio 27, Glucose Level 261H, Calcium Level 10.1, Magnesium Level 1.7L, Total Bilirubin 0.4, Aspartate Amino Transf (AST/SGOT) 14 , Alanine Aminotransferase (ALT/SGPT) 32, Alkaline Phosphatase 64, Total Creatine Kinase 14L, C-Reactive Protein High Sensitivity 14.05H, Total Protein 7.0, Albumin 3.9, TSH [place] Testing 2.00, Rheumatoid Factor NEGATIVE 05/06/17 20:20: Lactic Acid Level 1.70 05/07/17 06:00: White Blood Count 8.9, Red Blood Count 4.09L, Hemoglobin 11.5, Hematocrit 36, Mean Corpuscular Volume 88, Mean Corpuscular Hemoglobin 28, Mean Corpuscular Hemoglobin Concent 32, Red Cell Distribution Width 14.6H, Platelet Count 207, Mean Platelet Volume 10.0, Neutrophils (%) (Auto) 73, Lymphocytes (%) (Auto) 19 , Monocytes (%) (Auto) 7, Eosinophils (%) (Auto) 1, Basophils (%) (Auto) 0, Neutrophils # (Auto) 6.4, Lymphocytes # (Auto) 1.7, Monocytes # (Auto) 0.7, Eosinophils # (Auto) 0.1, Basophils # (Auto) 0.0, Erythrocyte Sedimentation Rate 33H, Sodium Level 137, Potassium Level 4.2, Chloride Level 101, Carbon Dioxide Level 25, Anion Gap 11, Blood Urea Nitrogen 16, Creatinine 0.71, Estimat Glomerular Filtration Rate > 60, BUN/Creatinine Ratio 23, Glucose Level 268H, Calcium Level 9.6, Magnesium Level 1.8, Total Bilirubin 0.4, Aspartate Amino Transf (AST/SGOT) 13, Alanine Aminotransferase (ALT/SGPT) 26, Alkaline Phosphatase 54, C-Reactive Protein High Sensitivity 16.92H, Total Protein 6.5, Albumin 3.6, Hemoglobin A1c 9.0H Assessment/Plan Assessment/Plan Assessment/Plan 1. Diabetic foot ulcer, R great toe. 2. Peripheral arterial disease. 3. No evidence of infection in wound. Plan: Continue silver alginate dressings. Follow-up with Guy Fuller APRN in [facility]. MARÍA ELENA HYMAN MD May 07, 2017 15:31
[2017-05-07 16:00] VITALS: BP 155/70
--- NOTE | 2017-05-07 16:18 | Occupational Therapy Eval ---
OT Evaluation-General/PLF Medical Diagnosis Admission Date May 06, 2017 at 23:10 Medical Diagnosis: sepsis, R shoulder pain/weakness, ulcer L foot Onset Date: May 06, 2017 Therapy Diagnosis Therapy Diagnosis: decr functional use R UE, pain, decr movement R UE Height/Weight Height (Feet): 5 Height (Inches): 5.00 Weight (Pounds): 191 Weight (Ounces): 0.0 Precautions Precautions/Isolations: Standard Precautions Referral Physician: Srinivasa Referral Reason: Evaluation/Treatment Medical History Pertinent Medical History: DM, HTN, Neuropathy (feet), PVD Additional Medical History R LE angioplasty, fibromyalgia Current History Pt admitted through ED with R arm pain, decreased ROM, weakness. She has a diabetic ulcer on R foot. Stiffness R hand Reviewed History: Yes Social History Current Living Status: Spouse ADL-Prior Level of Function ADL PLOF Comments Pt reported that she has been able to manage her basic ADLs before coming to hospital. OT Current Status Subjective Pt seen in room, up at EOB, agreeable to OT. She reported pain 6/10 at rest, 9/ 10 with R UE movement. She pointed to pain on top of R shoulder and in R palm, described as intense burning. She said she does not have weakness but just lots of pain in her arm. Appearance Alert, cooperative, guards R UE Mental Status/Objective Patient Orientation: Person, Place, Time, Situation Current Hand Dominance: Right Upper Extremity ROM Pt guarding R UE with movement. Active shoulder flex about 30 degrees, passive about 90 degrees and able to maintain position briefly but not tolerate resistance. Can internally rotate at shoulder but ext rotation to neutral. Elbow flex/ext in mid range, painful. Pron/sup WFL. Wrist with little active movement. Able to touch thumb to tips of fingers but unable to make full fist. passive range in fingers limited due to pain. Slight edema R hand, some redness and warmth. Range in fingers did not increase with repetitive finger flex/ext ( making a fist). L UE WFL. Upper Extremity Coordination Impaired R UE Upper Extremity Sensation Pt reports R UE feels like tingling in her whole arm plus burning in hand ADL-Treatment ADL-Current Pt reported that she doesn't have problems with basic ADLs at this time. Nursing reports pt is able to feed herself and is up ad idalmis in her room. She is not using R UE during ADLs and thought if she had a sling on it that it might feel better but was then worried about increased pain when sling came off. Functional [place] Measure 0=Not Assessed/NA 4=Minimal Assistance 1=Total Assistance 5=Supervision or Setup 2=Maximal Assistance 6=Modified [place] 3=Moderate Assistance 7=Complete IndependenceIRFPAI Quality Coding Scale 6 Independent with activity with or without an assistive device 5 Patient requires set up or clean up by helper. Patient completes activity by themselves 4 Supervision or touching assist (CGA). [place] provide cues , steadying assist 3 The helper provides less than half the effort to complete the activity 2 The helper provides more than half the effort to complete the activity 1 Dependent. The helper does all the effort to complete an activity 7 Patient refused to complete or attempt activity 9 The patient did not perform the activity before the current illness or injury 88 Not attempted due to Medical conditions or safety concerns OT Short Term Goals Short Term Goals 1 OT Detention Goals Detention Goals Time Frame: May 14, 2017 Pt will demonstrate increased functional use of R UE, including active range, and decreased pain Additional Goals: 3-ImproveStrength/Key 3=Patient will improve strength/tolerance for activity to enable patient to perform ADL's. OT Education/Plan Problem List/Assessment Assessment: Decreased UE Strength, Edema, Impaired Coordination, Restricted Funct UE ROM Pt would benefit from skilled OT to increase functional use of R UE which is limited by pain, edema, decr AROM Discharge Recommendations Plan/Recommendations: Continue POC Target Placement May benefit from outpatient OT Treatment Plan/Plan of Care Treatment,Training & Education: Yes Patient would benefit from OT for education, treatment and training to promote independence in ADL's, mobility, safety and/or upper extremity function for ADL' s. Plan of Care: UE Funct Exercise/Act, UE Neuromus Re-Ed/Coord Treatment Duration: May 14, 2017 Frequency: 5 times per week Estimated Hrs Per Day: .5 hour per day Agreement: Yes Rehab Potential: Fair Time/GCodes Start Time: 14:32 Stop Time: 14:46 Total Time Billed (hr/min): 14 Billed Treatment Time visit, 14 minutes eval moderate intensity DORINDA PANCHAL OT May 07, 2017 16:18
[2017-05-07] MEDS: glyBURIDE 5 MG (MICRONASE) TAB PO SCH (16:28)
[2017-05-07] MEDS: metFORMIN 500 MG (GLUCOPHAGE) TAB PO SCH (16:28)
[2017-05-07 20:00] VITALS: BP 187/84
[2017-05-07] MEDS: ENALAPRIL 10 MG (VASOTEC) TAB PO SCH (20:28)
[2017-05-07 21:00] VITALS: BP 163/78
[2017-05-07] MEDS ORDERED: GABAPENTIN 300 MG (NEURONTIN) CAP PO SCH (21:00)
--- NOTE | 2017-05-07 21:06 | Consultation ---
History of Present Illness History of Present Illness Patient Consulted On(oleg/time) 05/07/17 21:01 Time Seen by Provider: 20:50 Reason for Visit: Right shoulder pain History of Present Illness 62-year-old woman presents to the emergency room with primary complaint of right shoulder pain and stiffness that travels down to hand. She also complains of weak complaint evaluation officer on that side. She cannot account for recent onset of pain. She denies any injury or recent illness. She also has a history of uncontrolled diabetes. Allergies and Home Medications Allergies Coded Allergies: No Known Drug Allergies (Unverified , 01/19/11) Home Medications Aspirin 81 Mg Chew, 81 MG PO DAILY, (Reported) Enalapril Maleate 20 Mg Tablet, 20 MG PO BID, (Reported) Gabapentin 300 Mg Cap, 600 MG PO 0800,1200, (Reported) TAKES 2 (300MG) CAPSULES Gabapentin 300 Mg Capsule, 900 MG PO HS, (Reported) TAKES 3 (300MG) CAPSULES Glyburide 5 Mg Tablet, 10 MG PO BIDAC, (Reported) TAKES 2 (5MG) TABLETS Metformin HCl 500 Mg Tab.er.24, 1,000 MG PO BID, (Reported) TAKES 2 (500MG) TABLETS Tramadol HCl 50 Mg Tablet, 50 MG PO TID, (Reported) Past Ncyqrhk-Tilumy-Nqkdlc Hx Patient Social History Alcohol Use: Denies Use Recreational Drug Use: No Smoking Status: Former Smoker Type Used: Cigarettes Former Smoker, Quit: Jun 03, 1990 Recent Foreign Travel: No Contact w/Someone Who Travel: No Recent Infectious Disease Expo: No Recent Hopitalizations: No Physical Abuse: No Sexual Abuse: No Immunizations Up To Date Tetanus Booster (TDap): Less than 5yrs PED Vaccines UTD: Yes Date of Pneumonia Vaccine: Jun 03, 2011 Seasonal Allergies Seasonal Allergies: No Surgeries History of Surgeries: Yes (tubal ligation) Surgeries: Tubal Ligation Respiratory History of Respiratory Disorde: No Currently Using CPAP: No Currently Using BIPAP: No Cardiovascular History of Cardiac Disorders: Yes Cardiac Disorders: Hypertension, Peripheral Vascular Neurological History of Neurological Disord: Yes Neurological Disorders: Neuropathy 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 System : No Hx 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 Disorders: Yes Female 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 Disorders: Denies Genitourinary History of Genitourinary Disor: No Gastrointestinal History of Gastrointestinal Di: Yes Gastrointestinal Disorders: Gall Bladder Disease Musculoskeletal History of Musculoskeletal Dis: Yes Musculoskeletal Disorders: Fibromyalgia Endocrine History of Endocrine Disorders: Yes Endocrine Disorders: Diabetes, Non-Insulin dep Are Your Blood Sugars Over 250: Yes (in the last 2 months they have not been at or over 250) HEENT History of HEENT Disorders: No Loss of Vision: Denies Hearing Impairment: Denies Cancer History of Cancer: No Psychosocial History of Psychiatric Problem: No Suicide Risk Score: 0 Integumentary History of Skin or Integumenta: No Blood Transfusions History of Blood Disorders: No Adverse Reaction to a Blood Tr: No Family Medical History Significant Family History: No Pertinent Family Hx Family Medial History: Cardiovascular disease 19 MOTHER G8 BROTHER G8 BROTHER Diabetes mellitus 19 FATHER 19 MOTHER G8 BROTHER G8 SISTER FH: brain tumor FH: lung cancer FHx: peripheral neuropathy Lung c Neuro Review of Systems-General Musculoskeletal: see HPI, joint pain, joint swelling, muscle pain, muscle stiffness Physical Exam-General Problems Physical Exam Vital Signs Vital Sign - Last 12Hours 05/06/17 05/06/17 17:15 23:04 Temp 96.8 Pulse 102 Resp 18 B/P (MAP) 161/65 Pulse Ox 95 O2 Delivery Room Air Capillary Refill : Less Than 3 Seconds Eyes: Bilateral Eye Normal Inspection Peripheral Pulses: 2+ Dorsalis Pedis (R), 2+ Left Dors-Pedis (L), 2+ Radial Pulses (R), 2+ Radial Pulses (L) Comments ROM limited on exam. PROM FF 100 degrees, ABD 90 degrees; patient is guarded. Health Policy Manager strength decreased. Painful shoulder ROM in all planes. 2+ radial pulses. Pain anterior/lateral acromion border with ROM. Pain acromioclavicular joint with ROM. Posterior deltoid pain. Denies radiating pain with neck motion. Denies radiating pain with resisted neck ROM. Assessment/Plan Assessment/Plan Admission Diagnosis/Plan Diagnosis: Adhesive Capsulitis of the right shoulder Right shoulder pain Right shoulder impingement AC joint arthritis Plan: Patient to follow in office once discharged Discussed treatment options with patient at time of consult Clinical Quality Measures DVT/VTE Risk/Contraindication: Risk Factor Score Per Nursin RFS Level Per Nursing on Admit: 4+=Very High FLORESTONYA APRN May 07, 2017 21:05
[2017-05-08 00:05] VITALS: BP 137/65
[2017-05-08] MEDS ORDERED: TROUGH ORDER-PHARMACY XX NR (06:00)
[2017-05-08] MEDS: CATHETER FLUSH 10 ML SYR IV SCH (06:07)
[2017-05-08] MEDS: metFORMIN 500 MG (GLUCOPHAGE) TAB PO SCH (06:07)
[2017-05-08] MEDS: glyBURIDE 5 MG (MICRONASE) TAB PO SCH (06:07)
[2017-05-08 06:10] LABS: BASOPHILS % (AUTO) 1 % (0-10); EOSINOPHILS # (AUTO) 0.2 10^3/uL (0.0-0.3); EOSINOPHILS % (AUTO) 3 % (0-10); LYMPHOCYTES # (AUTO) 2.2 X 10^3 (1.0-4.0); LYMPHOCYTES % (AUTO) 33 % (12-44); MEAN CORPUSCULAR HEMOGLOBIN 28 PG (25-34); MEAN CORPUSCULAR HGB CONC 32 G/DL (32-36); MEAN CORPUSCULAR VOLUME 88 FL (80-99); MEAN PLATELET VOLUME 9.7 FL (7.4-10.4); MONOCYTES # (AUTO) 0.8 X 10^3 (0.0-1.0); MONOCYTES % (AUTO) 11 % (0-12); NEUTROPHILS # (AUTO) 3.5 X 10^3 (1.8-7.8); NEUTROPHILS % (AUTO) 53 % (42-75); PLATELET COUNT 189 10^3/uL (130-400); RED BLOOD COUNT 4.01 10^6/uL (4.35-5.85); RED CELL DISTRIBUTION WIDTH 14.3 % (10.0-14.5); WHITE BLOOD COUNT 6.7 10^3/uL (4.3-11.0)
[2017-05-08 06:30] LABS: ERYTHROCYTE SEDIMENTATION RATE 36 MM/HR (0-30)
[2017-05-08 06:32] LABS: ALANINE AMINOTRANSFERASE 24 U/L (0-55); ALBUMIN 3.3 GM/DL (3.2-4.5); ANION GAP 9 MMOL/L (5-14); ASPARTATE AMINO TRANSFERASE 16 U/L (5-34); BILIRUBIN,TOTAL 0.2 MG/DL (0.1-1.0); BLOOD UREA NITROGEN 16 MG/DL (7-18); BUN/CREATININE RATIO 24; CALCIUM 9.2 MG/DL (8.5-10.1); CARBON DIOXIDE 25 MMOL/L (21-32); CHLORIDE 103 MMOL/L (98-107); CREATININE SERUM 0.68 MG/DL (0.60-1.30); GFR ESTIMATED > 60; GLUCOSE 237 MG/DL (70-105); POTASSIUM 3.8 MMOL/L (3.6-5.0); SODIUM 137 MMOL/L (135-145); hs C REACTIVE PROTEIN 9.78 MG/DL (0.00-0.50)
[2017-05-08] MEDS: VANCOMYCIN 1250 MG/NS 250 ML IVPB IV SCH ×2 (06:57)
--- NOTE | 2017-05-08 07:53 | Progress Note (SOAP) ---
Subjective Time Seen by Provider: 07:40 Subjective/Events-last exam PATIENT FEELING BETTER TODAY AND WANTS TO GO HOME. White blood cell count 6700 normal. Blood cultures negative. Wound culture coagulase negative staph part of the skin. CRP 9.7 coming down. Sedimentation rate 36 coming down overall. Right shoulder pain less and able to move the right shoulder. Patient able to move her fingers better Hemoglobin A1c 9. Objective Exam Vital Signs Date Time Temp Pulse Resp B/P (MAP) Pulse Ox O2 Delivery O2 Flow Rate FiO2 05/08/17 00:05 98.0 103 18 137/65 96 Room Air 05/07/17 21:00 163/78 05/07/17 20:00 99.3 102 20 187/84 93 Room Air 05/07/17 16:00 98.7 83 21 155/70 92 Room Air 05/07/17 12:00 98.2 67 20 142/82 97 Room Air 05/07/17 08:00 98.3 91 18 130/63 95 Room Air Capillary Refill : Less Than 3 Seconds General Appearance: No Apparent Distress, WD/WN HEENT: Normal ENT Inspection Neck: Full Range of Motion, Normal Inspection Respiratory: Chest Non Tender, Lungs Clear, Normal Breath Sounds, No Accessory Muscle Use, No Respiratory Distress Cardiovascular: Regular Rate, Rhythm, No Murmur Gastrointestinal: non tender, soft Results Lab Laboratory Tests 05/08/17 05:57 Laboratory Tests 05/08/17 05:57: White Blood Count 6.7, Red Blood Count 4.01L, Hemoglobin 11.3L, Hematocrit 35, Mean Corpuscular Volume 88, Mean Corpuscular Hemoglobin 28, Mean Corpuscular Hemoglobin Concent 32, Red Cell Distribution Width 14.3, Platelet Count 189, Mean Platelet Volume 9.7, Neutrophils (%) (Auto) 53, Lymphocytes (%) (Auto) 33, Monocytes (%) (Auto) 11, Eosinophils (%) (Auto) 3, Basophils (%) (Auto) 1, Neutrophils # (Auto) 3.5, Lymphocytes # (Auto) 2.2, Monocytes # (Auto) 0.8, Eosinophils # (Auto) 0.2, Basophils # (Auto) 0.0, Erythrocyte Sedimentation Rate 36H, Sodium Level 137, Potassium Level 3.8, Chloride Level 103, Carbon Dioxide Level 25, Anion Gap 9, Blood Urea Nitrogen 16, Creatinine 0.68, Estimat Glomerular Filtration Rate > 60, BUN/Creatinine Ratio 24, Glucose Level 237H, Calcium Level 9.2, Total Bilirubin 0.2, Aspartate Amino Transf (AST/SGOT) 16, Alanine Aminotransferase (ALT/SGPT) 24, Alkaline Phosphatase 58, C-Reactive Protein High Sensitivity 9.78H, Total Protein 6.0L, Albumin 3.3, Vancomycin Level Trough 13.1 Microbiology 05/06/17 Blood Culture - Preliminary, Resulted No growth 05/06/17 Gram Stain - Final, Resulted 05/06/17 Wound Culture - Preliminary, Resulted Staph, Coag Neg (Clinical Pharmacist) See Comments Radiology MED REC#: [id number] PT STATUS: REG ER : 1955 PHYSICIAN: RADHA HEARD MD ADMIT DATE: 05/06/17/ER Signed Date of Exam: 05/06/17 SHOULDER, RIGHT, 3 VIEWS INDICATION: Complaining of pain to the top of the shoulder. Started this morning. No known injuries. EXAMINATION: Right shoulder, 05/06/2017. FINDINGS: Three views of the shoulder. Narrowing and spurring at the acromioclavicular joint is noted. Greater tuberosity demonstrates sclerotic changes consistent with chronic rotator cuff tendinopathy. No acute fractures or dislocations are appreciated. IMPRESSION: Chronic change of the shoulder with no acute osseous abnormality. Dictated by: Dictated on workstation # [id number] Dict: 05/06/171909 Trans: 05/06/171935 Interpreted by: TERRENCE GILL MD Electronically signed by: TERRENCE GILL MD 05/06/171935 Assessment/Plan Assessment/Plan Assess & Plan/Chief Complaint diabetic foot ulcer who Right shoulder pain Diabetes. Leukocytosis. Right foot ulcers of right great toe. Clinical Quality Measures DVT/VTE Risk/Contraindication: Risk Factor Score Per Nursin RFS Level Per Nursing on Admit: 4+=Very High TAYO SUTTON DO May 08, 2017 07:53
--- NOTE | 2017-05-08 07:56 | Discharge Inst-Simple/Standard ---
Discharge Inst-Standard Discharge Medications New, Converted or Re-Newed RX: Call to Patients Pharmacy Patient Instructions/Follow Up Plan of Care/Instructions/FU: follow-up with orthopedics. Follow-up with home care. To my office next Thursday at 10 a.m. Activity as Tolerated: Yes Discharge Diet: ADA Diet TAYO SUTTON DO May 08, 2017 07:56
[2017-05-08] MEDS ORDERED: ATOR10TA PO ×2 (07:58)
[2017-05-08 08:00] VITALS: BP 160/71
[2017-05-08] MEDS: GABAPENTIN 300 MG (NEURONTIN) CAP PO SCH (08:42)
[2017-05-08] MEDS: CLINDAMYCIN 900 MG/NS 50 ML IVPB IV SCH ×2 (08:42)
[2017-05-08] MEDS: ENOXAPARIN 40 MG/0.4 ML (LOVENOX) SYR SC SCH (08:42)
[2017-05-08] MEDS: ENALAPRIL 10 MG (VASOTEC) TAB PO SCH (08:42)
[2017-05-08] MEDS ORDERED: ASPIRIN 81 MG CHEW (CHILDREN'S ASA) PO SCH (09:00)
--- NOTE | 2017-05-11 07:20 | Clinic Account Progress/Dx ---
Clinic Account Progress/Dx DIAGNOSIS: Time Seen by Provider: 07:12 Diagnosis adhesive capsulitis of right shoulder.. Right shoulder pain Essential hypertension. Diabetes. Diabetic neuropathy. Diabetes mellitus with foot ulcer TAYO SUTTON DO May 11, 2017 07:20
== END 2017-05-08 07:55 | disposition home or self-care (01) ==
LOC: EDUNIT# 16:30 → ER 16:31 → 4TH 22:44 → UNDOADMOB 22:44 → 4TH 23:10
PROVIDERS: ADMIT Family Medicine; ATTEND Family Medicine
DX: M75.01 Adhesive capsulitis of right shoulder (principal); M19.011 Primary osteoarthritis, right shoulder; E11.621 Type 2 diabetes mellitus with foot ulcer; E11.40 Type 2 diabetes mellitus with diabetic neuropathy, unspecified; E11.51 Type 2 diabetes mellitus with diabetic peripheral angiopathy without gangrene; I10 Essential (primary) hypertension; M79.7 Fibromyalgia; Z79.84 Long term (current) use of oral hypoglycemic drugs; Z79.82 Long term (current) use of aspirin; Z79.899 Other long term (current) drug therapy
CPT/HCPCS: 36415; 70450; 71020; 73030; 73590; 73630; 80053; 80202; 81000; 82550; 83036; 83605; 83735; 84443; 85007; 85025; 85027; 85652; 86141; 86430; 87040; 87070; 87077; 87205; 93041; 96365; G0378

== ENCOUNTER → 2017-05-12 | Outpatient (CLI) | payer OTHER ==
[~2017-05-12] MED LIST changes: +ATOR10TA PO; +GABA-488 PO; +METF-478 PO
== END ==
LOC: WOUNDCARE 10:10
PROVIDERS: ATTEND Nurse Practitioner
DX: E11.621 Type 2 diabetes mellitus with foot ulcer (principal); E11.42 Type 2 diabetes mellitus with diabetic polyneuropathy; L97.512 Non-pressure chronic ulcer of other part of right foot with fat layer exposed
CPT/HCPCS: 11042

== ENCOUNTER → 2017-05-19 | Outpatient (CLI) | payer OTHER | LOC: WOUNDCARE 09:47 | PROVIDERS: ATTEND Nurse Practitioner | DX: E11.621 Type 2 diabetes mellitus with foot ulcer (principal); E11.42 Type 2 diabetes mellitus with diabetic polyneuropathy; L97.512 Non-pressure chronic ulcer of other part of right foot with fat layer exposed | CPT/HCPCS: 11042 ==

== ENCOUNTER → 2017-05-19 | Outpatient (CLI) | payer OTHER ==
--- NOTE | 2017-05-19 13:42 | Diagnostic Imaging Report ---
INDICATION: Screening. The current study was also evaluated with a Computer Aided Detection (CAD) system. COMPARISON: Comparison made with prior examinations from 07/03/2015, 07/05/2013, and 12/02/2010. FINDINGS: There is a moderate amount of residual fibroglandular tissue bilaterally. There is an unchanged nodular density in the lateral aspect of the left breast. There are scattered benign-type calcifications. There is no new dominant mass, spiculated lesion, or suspicious calcification identified. The skin, nipples, and axillae are unremarkable. IMPRESSION: Benign. ACR BI-RADS Category 2: Benign findings. Result letter will be mailed to the patient. Note: At least 10% of breast cancer is not imaged by mammography. Dictated by: Dictated on workstation # [id number]
== END ==
LOC: RAD 09:14
PROVIDERS: ATTEND Family Medicine
DX: Z12.31 Encounter for screening mammogram for malignant neoplasm of breast (principal)
CPT/HCPCS: 77067

== ENCOUNTER → 2017-05-26 | Outpatient (CLI) | payer OTHER | LOC: WOUNDCARE 10:14 | PROVIDERS: ATTEND Nurse Practitioner | DX: E11.621 Type 2 diabetes mellitus with foot ulcer (principal); E11.42 Type 2 diabetes mellitus with diabetic polyneuropathy; L97.512 Non-pressure chronic ulcer of other part of right foot with fat layer exposed | CPT/HCPCS: 99212 ==

== ENCOUNTER 2017-08-08 10:28 | Emergency (ER) | payer OTHER ==
[~2017-08-08] VITALS: Ht 165.1 cm; Wt 83.9 kg
--- NOTE | 2017-08-08 11:20 | ED Integumentary General ---
General Chief Complaint: Skin/Wound Problems Stated Complaint: R BIG TOE ULCER Nursing Triage Note: PT STATES HAS CHRONIC DIABETIC ULCER ON R GREAT TOE, STATES CAME BACK APPROX 2 WEEKS AGO STARTED HAVING ODOR PAST COUPLE DAYS, STATES STARTED ANTIBIOTIC 2 DAYS AGO HAD LEFT OVERS FROM OTHER INFECTION Source: patient, spouse Exam Limitations: no limitations History of Present Illness Time seen by provider: 11:05 Initial Comments Patient presents to ER by private conveyance with a chief complaint of a recurrent right medial great toe ulcer. She has a history of diabetes with peripheral neuropathy. She's had several angiograms of her legs that did not require any intervention and was told that she had no microvascular disease. She 's had this wound for about 2 years and approximately 3 months ago that healed over and they thought they were done so she was discharged from wound care. The bowel a month ago the wound reopened so she was debriding and using Aquasol dressings she had left over the treated on her own. He was doing okay but now there is some area of devitalized white skin tissue and she has noticed an odor coming from her toe has her worried about to 3 days ago so she started taking leftover linezolid for the past 2 days. She has otherwise been compliant with her diabetic medications but says that recently they had to switch her from glimepiride to another drug that does not work as well and her sugars have not been under as tight control. Allergies and Home Medications Allergies Coded Allergies: No Known Drug Allergies (Unverified , 01/19/11) Home Medications Aspirin 81 Mg Chew, 81 MG PO DAILY, (Reported) Atorvastatin Calcium 10 Mg Tablet, 10 MG PO DAILY for 30 Days, #30 Prescribed by: TAYO SUTTON on 05/08/17 0758 Doxycycline Hyclate 100 Mg Tablet, 100 MG PO BID for 7 Days, #14 Ref 0 Prescribed by: HIRAM COELHO on 08/08/17 1224 Enalapril Maleate 20 Mg Tablet, 20 MG PO BID, (Reported) Gabapentin 300 Mg Cap, 600 MG PO 0800,1200, (Reported) TAKES 2 (300MG) CAPSULES Gabapentin 300 Mg Capsule, 900 MG PO HS, (Reported) TAKES 3 (300MG) CAPSULES Metformin HCl 500 Mg Tab.er.24, 1,000 MG PO BID, (Reported) TAKES 2 (500MG) TABLETS Tramadol HCl 50 Mg Tablet, 50 MG PO TID, (Reported) Constitutional: No chills, No diaphoresis, No fever, No malaise EENTM: No hearing loss, No ear pain Respiratory: No cough, No short of breath Cardiovascular: No chest pain, No palpitations Gastrointestinal: No constipation, No diarrhea, No nausea, No vomiting Genitourinary: No discharge, No dysuria Musculoskeletal: No back pain, No joint pain Skin: see HPI Psychiatric/Neurological: Numbness, Paresthesia Past Gkuwzav-Uzzcdi-Jnqbyb Hx Patient Social History Alcohol Use: Denies Use Recreational Drug Use: No Smoking Status: Former Smoker Type Used: Cigarettes Former Smoker, Quit: Jun 03, 1990 Recent Foreign Travel: No Contact w/Someone Who Travel: No Recent Infectious Disease Expo: No Recent Hopitalizations: No Physical Abuse: No Sexual Abuse: No Immunizations Up To Date Tetanus Booster (TDap): Less than 5yrs PED Vaccines UTD: Yes Date of Pneumonia Vaccine: Jun 03, 2011 Seasonal Allergies Seasonal Allergies: No Surgeries History of Surgeries: Yes (tubal ligation) Surgeries: Tubal Ligation Respiratory History of Respiratory Disorde: No Currently Using CPAP: No Currently Using BIPAP: No Cardiovascular History of Cardiac Disorders: Yes Cardiac Disorders: Hypertension, Peripheral Vascular Neurological History of Neurological Disord: Yes Neurological Disorders: Neuropathy 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 System Hx 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 Disorders: Yes Female 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 Disorders: Denies Genitourinary History of Genitourinary Disor: No Gastrointestinal History of Gastrointestinal Di: Yes Gastrointestinal Disorders: Gall Bladder Disease Musculoskeletal History of Musculoskeletal Dis: Yes Musculoskeletal Disorders: Fibromyalgia Endocrine History of Endocrine Disorders: Yes Endocrine Disorders: Diabetes, Non-Insulin dep HEENT History of HEENT Disorders: No Loss of Vision: Denies Hearing Impairment: Denies Cancer History of Cancer: No Psychosocial History of Psychiatric Problem: No Suicide Risk Score: 0 Integumentary History of Skin or Integumenta: No Blood Transfusions History of Blood Disorders: No Adverse Reaction to a Blood Tr: No Family Medical History Significant Family History: No Pertinent Family Hx Family Medial History: Cardiovascular disease 19 MOTHER G8 BROTHER G8 BROTHER Diabetes mellitus 19 FATHER 19 MOTHER G8 BROTHER G8 SISTER FH: brain tumor FH: lung cancer FHx: peripheral neuropathy Lung c Neuro Physical Exam Vital Signs Vital Sign - Last 12Hours 08/08/17 10:30 Temp 96.7 Pulse 88 Resp 16 B/P (MAP) 195/85 Pulse Ox 99 Capillary Refill : Less Than 3 Seconds General Appearance: WD/WN, no apparent distress HEENT: PERRL/EOMI, pharynx normal Cardiovascular: normal peripheral pulses, regular rate, rhythm Respiratory: chest non-tender, lungs clear, normal breath sounds Gastrointestinal: non tender, soft Neurologic/Psychiatric: alert, oriented x 3 Skin: other (diabetic right great toe ulcer on the medial plantar side with some white devitalized skin, unstageable. No purulence, erythema or pain. She does have relative numbness in the region.) Progress/Results/Core Measures Results/Orders Lab Results Laboratory Tests Test 08/08/17 11:51 08/08/17 14:19 08/08/17 14:50 Range/Units White Blood Count 8.0 4.3-11.0 10^3/uL Red Blood Count 4.31 L 4.35-5.85 10^6/uL Hemoglobin 12.1 11.5-16.0 G/DL Hematocrit 38 35-52 % Mean Corpuscular Volume 87 80-99 FL Mean Corpuscular Hemoglobin 28 25-34 PG Mean Corpuscular Hemoglobin Concent 32 32-36 G/DL Red Cell Distribution Width 13.7 10.0-14.5 % Platelet Count 220 130-400 10^3/uL Mean Platelet Volume 9.6 7.4-10.4 FL Neutrophils (%) (Auto) 65 42-75 % Lymphocytes (%) (Auto) 24 12-44 % Monocytes (%) (Auto) 8 0-12 % Eosinophils (%) (Auto) 3 0-10 % Basophils (%) (Auto) 0 0-10 % Neutrophils # (Auto) 5.2 1.8-7.8 X 10^3 Lymphocytes # (Auto) 2.0 1.0-4.0 X 10^3 Monocytes # (Auto) 0.6 0.0-1.0 X 10^3 Eosinophils # (Auto) 0.2 0.0-0.3 10^3/uL Basophils # (Auto) 0.0 0.0-0.1 10^3/uL Prothrombin Time 12.1 L 12.2-14.7 SEC INR Comment 0.9 0.8-1.4 Activated Partial Thromboplast Time 28 24-35 SEC Sodium Level 136 135-145 MMOL/L Potassium Level 4.3 3.6-5.0 MMOL/L Chloride Level 100 98-107 MMOL/L Carbon Dioxide Level 24 21-32 MMOL/L Anion Gap 12 5-14 MMOL/L Blood Urea Nitrogen 20 H 7-18 MG/DL Creatinine 0.73 0.60-1.30 MG/DL Estimat Glomerular Filtration Rate > 60 BUN/Creatinine Ratio 27 Glucose Level 305 H 70-105 MG/DL Lactic Acid Level 2.83 *H 2.14 *H 0.50-2.00 MMOL/L Calcium Level 9.3 8.5-10.1 MG/DL Total Bilirubin 0.2 0.1-1.0 MG/DL Aspartate Amino Transf (AST/SGOT) 17 5-34 U/L Alanine Aminotransferase (ALT/SGPT) 32 0-55 U/L Alkaline Phosphatase 70 40-136 U/L Total Protein 7.4 6.4-8.2 GM/DL Albumin 3.9 3.2-4.5 GM/DL Urine Color YELLOW Urine Clarity CLEAR Urine pH 5 5-9 Urine Specific [place] 1.025 H 1.016-1.022 Urine Protein 2+ H NEGATIVE Urine Glucose (UA) 3+ H NEGATIVE Urine Ketones NEGATIVE NEGATIVE Urine Nitrite NEGATIVE NEGATIVE Urine Bilirubin NEGATIVE NEGATIVE Urine Urobilinogen NORMAL NORMAL MG/DL Urine Leukocyte Esterase NEGATIVE NEGATIVE Urine RBC (Auto) 1+ H NEGATIVE Urine RBC NONE /HPF Urine WBC RARE /HPF Urine Squamous Epithelial Cells 5-10 /HPF Urine Crystals PRESENT H /LPF Urine Uric Acid Crystals RARE H /LPF Urine Bacteria FEW H /HPF Urine Casts NONE /LPF Urine Mucus NEGATIVE /LPF Urine Yeast FEW H /HPF Urine Culture Indicated NO My Orders Orders - HIRAM COELHO Cbc With Automated Diff (08/08/17 11:12) Comprehensive Metabolic Panel (08/08/17 11:12) Lactic Acid Analyzer (08/08/17 11:12) Foot, Right, 3 View (08/08/17 11:12) Blood Culture (08/08/17 12:51) Sputum Culture (08/08/17 12:51) Ua Culture If Indicated (08/08/17 12:51) Protime With Inr (08/08/17 12:51) Partial Thromboplastin Time (08/08/17 12:51) Chest 1 View, Ap/Pa Only (08/08/17 12:51) O2 (08/08/17 12:51) Saline Lock/Iv-Start (08/08/17 12:51) Piperacillin Sodium/Tazobactam (Zosyn Vi (08/08/17 13:00) Vital Signs Adult Sepsis Patie Q1H (08/08/17 12:51) Remove Rings In Anticipation O (08/08/17 12:51) Ns Iv 1000 Ml (Sodium Chloride 0.9%) (08/08/17 12:51) Medications Given in ED Current Medications Medications Dose Ordered Sig/[place] Route Start Time Stop Time Status Last Admin Dose Admin Piperacillin Sod/ Tazobactam Sod 4.5 gm/Sodium Chloride 100 ml @ 200 mls/hr ONCE ONCE IV 08/08/17 13:00 08/08/17 13:29 DC 08/08/17 13:38 200 MLS/HR Sodium Chloride 1,000 ml @ 0 mls/hr Q0M ONCE IV 08/08/17 12:51 08/08/17 12:54 DC 08/08/17 13:37 1,000 MLS/HR Vital Signs/I&O Vital Sign - Last 12Hours 08/08/17 10:30 Temp 96.7 Pulse 88 Resp 16 B/P (MAP) 195/85 Pulse Ox 99 Blood Pressure Mean: 121 Progress Note #1: Time: 12:19 Progress Note Patient has a pretty large ulcer on the medial side of the right great toe and there is no great deal of erythema or purulence coming from the wound so infection is not as likely however there is some odor and necrotic tissue. Will need debridement and antibiotics. We'll send her out on doxycycline. The x-ray does not show any evidence of osteomyelitis. Clinically she does not look to be severely infected nor does she need to be in the hospital for IV antibiotics. Her white count is normal. We'll have her follow up with wound care Thursday morning. We'll get her a orthopedic shoe to offload her toe. Progress Note #2: Time: 15:25 Progress Note Patient still clinically aseptic and the wound looks devitalized but does not appear to be infected without any purulence or erythema in the surrounding tissues. Discussed this at length with the patient and she is comfortable going home and watching the wound continuing wound dressings and using antibiotics until she can get in to see the wound care doctor Thursday. She would like to also speak to general surgery about possibly doing a procedure for her toe. Lactate is gone down but I do not think it is an indication of sepsis in this case. Diagnostic Imaging Diagonstic Imaging: Xray Plain Films/CT/US/NM/MRI: other (right foot) Comments NAME: BRYSON ROBB [facility] REC#: [id number] PHYSICIAN: HIRAM COELHO MD CC: ESMER MILLS MD; HIRAM COELHO Page 1 of 1 RADIOLOGY REPORT VIA [facility]. [place], [place] CC: ESMER MILLS MD; HIRAM COELHO Page 1 of 1 RADIOLOGY REPORT NAME: BRYSON ROBB [facility] REC#: [id number] PT STATUS: REG ER : 1955 PHYSICIAN: HIRAM COELHO MD ADMIT DATE: 08/08/17/ER Signed Date of Exam: 08/08/17 FOOT, RIGHT, 3 VIEW INDICATION: Wound on the plantar surface of the right great toe for two years. Has gotten worse recently. Infection. FINDINGS: Three views of the right foot show no fracture, dislocation or other acute bony abnormality. No definitive evidence of osteomyelitis. No mass is seen. IMPRESSION: No acute abnormality is seen. Bone scan or MRI would be helpful for further evaluation regarding possible osteomyelitis if felt indicated. Dictated by: Dictated on workstation # [id number] Dict: 08/08/17 1207 Trans: 08/08/17 1213 Interpreted by: ESMER MILLS MD Electronically signed by: ESMER MILLS MD 08/08/17 1213 Reviewed: Reviewed by Me Consults Consults : Consulting Physician: CARMEN NORRIS DO Consults Notes Discussed the case lab imaging findings and we both agree that this does not represent sepsis despite an elevated lactate as she has no clinical evidence of infection just a wound. She has normal vital signs no white count. We will proceed with outpatient therapy if her repeat lactate is improved after some fluid resuscitation and antibiotic intervention. Departure Impression Impression: Primary Impression: Diabetic ulcer of right great toe Disposition: HOME, SELF-CARE Condition: Stable Departure-Patient Inst. Decision time for Depature: 15:26 Referrals: TAYO SUTTON DO (PCP/Family) Primary Care Physician Patient Instructions: Wound Care (DC) Add. Discharge Instructions: Keep the wound cleaned and dried with soap and water and a fresh dressing twice a day and as needed for soiled dressing was. Wear the orthopedic shoe to keep pressure off of your toe. Call wound care and get an appointment to be seen and have your toe debrided. [phone] Take the doxycycline one capsule twice a day. All discharge instructions reviewed with patient and/or family. Voiced understanding. Scripts Doxycycline Hyclate (Doxycycline Hyclate) 100 Mg Tablet 100 MG PO BID for 7 Days, #14 TAB 0 Refills Prov: HIRAM COELHO 08/08/17 Copy Copies To 1: MARÍA ELENA HYMAN MD Copies To 2: TAYO SUTTON TITUS J Aug 08, 2017 11:20
[2017-08-08 12:01] LABS: BASOPHILS % (AUTO) 0 % (0-10); EOSINOPHILS # (AUTO) 0.2 10^3/uL (0.0-0.3); EOSINOPHILS % (AUTO) 3 % (0-10); LYMPHOCYTES % (AUTO) 24 % (12-44); MEAN CORPUSCULAR HEMOGLOBIN 28 PG (25-34); MEAN CORPUSCULAR HGB CONC 32 G/DL (32-36); MEAN CORPUSCULAR VOLUME 87 FL (80-99); MEAN PLATELET VOLUME 9.6 FL (7.4-10.4); MONOCYTES # (AUTO) 0.6 X 10^3 (0.0-1.0); MONOCYTES % (AUTO) 8 % (0-12); NEUTROPHILS # (AUTO) 5.2 X 10^3 (1.8-7.8); NEUTROPHILS % (AUTO) 65 % (42-75); PLATELET COUNT 220 10^3/uL (130-400); RED BLOOD COUNT 4.31 10^6/uL (4.35-5.85); RED CELL DISTRIBUTION WIDTH 13.7 % (10.0-14.5)
--- NOTE | 2017-08-08 12:10 | Diagnostic Imaging Report ---
INDICATION: Wound on the plantar surface of the right great toe for two years. Has gotten worse recently. Infection. FINDINGS: Three views of the right foot show no fracture, dislocation or other acute bony abnormality. No definitive evidence of osteomyelitis. No mass is seen. IMPRESSION: No acute abnormality is seen. Bone scan or MRI would be helpful for further evaluation regarding possible osteomyelitis if felt indicated. Dictated by: Dictated on workstation # [id number]
[2017-08-08] MEDS ORDERED: DOXY100T2 PO (12:24)
[2017-08-08 12:48] LABS: ALANINE AMINOTRANSFERASE 32 U/L (0-55); ALBUMIN 3.9 GM/DL (3.2-4.5); ANION GAP 12 MMOL/L (5-14); ASPARTATE AMINO TRANSFERASE 17 U/L (5-34); BILIRUBIN,TOTAL 0.2 MG/DL (0.1-1.0); BLOOD UREA NITROGEN 20 MG/DL (7-18); BUN/CREATININE RATIO 27; CALCIUM 9.3 MG/DL (8.5-10.1); CARBON DIOXIDE 24 MMOL/L (21-32); CHLORIDE 100 MMOL/L (98-107); CREATININE SERUM 0.73 MG/DL (0.60-1.30); GFR ESTIMATED > 60; GLUCOSE 305 MG/DL (70-105); POTASSIUM 4.3 MMOL/L (3.6-5.0); SODIUM 136 MMOL/L (135-145); TOTAL PROTEIN 7.4 GM/DL (6.4-8.2)
[2017-08-08] MEDS ORDERED: NS IV 1000 ML 1,000 ML IV ONE (12:51)
[2017-08-08] MEDS ORDERED: PIPERACILLIN SODIUM/TAZOBACTAM 4.5 GM in NS (IVPB) 100 ML IV ONE (13:00)
[2017-08-08 13:56] LABS: INR 0.9 (0.8-1.4); PROTHROMBIN TIME PATIENT 12.1 SEC (12.2-14.7)
--- NOTE | 2017-08-08 14:17 | Diagnostic Imaging Report ---
INDICATION: Infected wound on the right great toe. FINDINGS: A single view of the chest shows normal heart size and vascularity. The lungs are clear. There is no effusion or pneumothorax. There is no bony abnormality. IMPRESSION: Normal chest. There is no change from 05/06/2017. Dictated by: Dictated on workstation # [id number]
[2017-08-08 14:36] LABS: BILIRUBIN,URINE NEGATIVE (NEGATIVE); KETONES,URINE NEGATIVE (NEGATIVE); LEUKOCYTE ESTERASE ,URINE NEGATIVE (NEGATIVE); NITRITE,URINE NEGATIVE (NEGATIVE); PH,URINE 5 (5-9); PROTEIN,URINE 2+ (NEGATIVE); UROBILINOGEN,URINE NORMAL (NORMAL)
[2017-08-08 14:43] LABS: URIC ACID CRYSTALS,URINE RARE /LPF; WBC,URINE RARE /HPF
[2017-08-08 14:44] LABS: YEAST,URINE FEW /HPF
[2017-08-08 15:36] VITALS: BP 162/80
== END 2017-08-08 15:36 | disposition home or self-care (01) ==
LOC: EDUNIT# 10:28 → ER 10:29
DX: E11.621 Type 2 diabetes mellitus with foot ulcer (principal); L97.519 Non-pressure chronic ulcer of other part of right foot with unspecified severity; I10 Essential (primary) hypertension; E11.59 Type 2 diabetes mellitus with other circulatory complications; I73.9 Peripheral vascular disease, unspecified; E11.40 Type 2 diabetes mellitus with diabetic neuropathy, unspecified; Z79.82 Long term (current) use of aspirin; Z82.49 Family history of ischemic heart disease and other diseases of the circulatory system; Z79.84 Long term (current) use of oral hypoglycemic drugs; Z80.1 Family history of malignant neoplasm of trachea, bronchus and lung; Z87.891 Personal history of nicotine dependence; Z98.51 Tubal ligation status
CPT/HCPCS: 36415; 71010; 73630; 80053; 81000; 83605; 85025; 85610; 85730; 87040

== ENCOUNTER → 2017-08-14 | Outpatient (CLI) | payer OTHER ==
[~2017-08-14] MED LIST changes: +DOXY100T2 PO
== END ==
LOC: WOUNDCARE 09:04
PROVIDERS: ATTEND Surgery
DX: E11.621 Type 2 diabetes mellitus with foot ulcer (principal); L97.512 Non-pressure chronic ulcer of other part of right foot with fat layer exposed; I70.235 Atherosclerosis of native arteries of right leg with ulceration of other part of foot
CPT/HCPCS: 11042

== ENCOUNTER 2017-12-04 19:21 | Inpatient (IN) | payer OTHER ==
[~2017-12-04] VITALS: Ht 165.1 cm; Wt 86.9 kg
[~2017-12-04 19:21] MED LIST changes: +ACHD5005 PO; -HYDR-3812 PO
[2017-12-04 19:51] LABS: BASOPHILS % (AUTO) 0 % (0-10); EOSINOPHILS # (AUTO) 0.2 10^3/uL (0.0-0.3); EOSINOPHILS % (AUTO) 3 % (0-10); HEMATOCRIT 37 % (35-52); HEMOGLOBIN 12.1 G/DL (11.5-16.0); LYMPHOCYTES # (AUTO) 1.8 X 10^3 (1.0-4.0); LYMPHOCYTES % (AUTO) 25 % (12-44); MEAN CORPUSCULAR HEMOGLOBIN 28 PG (25-34); MEAN CORPUSCULAR HGB CONC 32 G/DL (32-36); MEAN CORPUSCULAR VOLUME 86 FL (80-99); MEAN PLATELET VOLUME 9.4 FL (7.4-10.4); MONOCYTES # (AUTO) 0.7 X 10^3 (0.0-1.0); MONOCYTES % (AUTO) 9 % (0-12); NEUTROPHILS # (AUTO) 4.8 X 10^3 (1.8-7.8); NEUTROPHILS % (AUTO) 64 % (42-75); PLATELET COUNT 212 10^3/uL (130-400); RED BLOOD COUNT 4.37 10^6/uL (4.35-5.85); RED CELL DISTRIBUTION WIDTH 14.3 % (10.0-14.5); WHITE BLOOD COUNT 7.5 10^3/uL (4.3-11.0)
[2017-12-04] MEDS ORDERED: LABETALOL HCL 20 MG/4 ML VIAL IV ONE ×2 (20:00→21:00)
[2017-12-04] MEDS ORDERED: ONDANSETRON 4 MG/2 ML (SDV) Z0FRAN IVP ONE (20:00)
[2017-12-04 20:02] LABS: PARTIAL THROMBOPLASTIN TIME 27 SEC (24-35); PROTHROMBIN TIME PATIENT 12.9 SEC (12.2-14.7)
[2017-12-04 20:05] LABS: FIBRIN DEGRADATION PRODUCTS < 0.27 UG/ML (0.00-0.49)
[2017-12-04 20:10] LABS: ALANINE AMINOTRANSFERASE 49 U/L (0-55); ALBUMIN 4.1 GM/DL (3.2-4.5); ALKALINE PHOSPHATASE 73 U/L (40-136); BILIRUBIN,TOTAL 0.3 MG/DL (0.1-1.0); BUN/CREATININE RATIO 21; CALCIUM 9.2 MG/DL (8.5-10.1); CARBON DIOXIDE 25 MMOL/L (21-32); CHLORIDE 101 MMOL/L (98-107); CREATININE SERUM 0.76 MG/DL (0.60-1.30); GFR ESTIMATED > 60; GLUCOSE 291 MG/DL (70-105); POTASSIUM 4.2 MMOL/L (3.6-5.0); SODIUM 137 MMOL/L (135-145); TOTAL PROTEIN 7.1 GM/DL (6.4-8.2)
--- NOTE | 2017-12-04 20:14 | Diagnostic Imaging Report ---
INDICATION: Stroke, dizziness and blurry vision. COMPARISON: Prior examination from 08/08/2017. FINDINGS: The heart size, mediastinal configuration, and pulmonary vascularity are within normal limits. There is no pleural effusion, pneumothorax, or pneumonia. The osseous structures are unremarkable. IMPRESSION: No acute cardiopulmonary abnormality. Dictated by: Dictated on workstation # [id number]
[2017-12-04 20:26] LABS: BILIRUBIN,URINE NEGATIVE (NEGATIVE); CLARITY,URINE CLEAR; COLOR,URINE YELLOW; GLUCOSE, URINE (UA) 4+ (NEGATIVE); KETONES,URINE 2+ (NEGATIVE); LEUKOCYTE ESTERASE ,URINE 1+ (NEGATIVE); NITRITE,URINE NEGATIVE (NEGATIVE); PH,URINE 6.5 (5-9); PROTEIN,URINE 1+ (NEGATIVE); UROBILINOGEN,URINE NORMAL (NORMAL)
[2017-12-04 20:30] LABS: TSH (THYROID ANALYZER) 0.96 UIU/ML (0.35-4.94)
--- NOTE | 2017-12-04 20:37 | Diagnostic Imaging Report ---
INDICATION: Stroke, dizziness and blurry vision. COMPARISON: Prior examination from 05/06/2017. EXAMINATION: CT of the head without contrast. FINDINGS: The ventricles and sulci are within normal limits. There is no hydrocephalus. There is no midline shift. There is no intracranial mass, hemorrhage or extra-axial fluid collection. There is some mild chronic microvascular ischemic disease. There is some questionable decreased attenuation in the left temporal lobe. Possibility of developing CVA cannot be excluded. Calvarium and sinuses are clear. IMPRESSION: 1. Questionable diffuse decreased attenuation in the left temporal lobe. Developing CVA cannot be excluded. Further evaluation with MRI is recommended. 2. Unchanged mild chronic microvascular ischemic disease. Report was called to COLEMAN Mckeon (for Dr. Mick Najera) in the [facility] ER at 8:35 p.m., by jordan. Dictated by: Dictated on workstation # [id number]
[2017-12-04 20:38] LABS: BACTERIA,URINE MODERATE /HPF
[2017-12-04] MEDS ORDERED: cefTRIAXone INJECTION 1,000 MG in NS (IVPB) 100 ML IV ONE (21:00)
[2017-12-04] MEDS ORDERED: NS 250 ML (IVPB) BAG IV ONE (21:15)
[2017-12-04] MEDS ORDERED: IOHEXOL 350 MG/ML 100 ML (OMNIPAQUE 350) VIAL IV ONE (21:15)
--- NOTE | 2017-12-04 21:45 | Diagnostic Imaging Report ---
PROCEDURE: CT angiography of the head and CT angiography of the neck with and without contrast. TECHNIQUE: Contiguous noncontrast images were obtained from the skull base through the vertex. After intravenous contrast administration, helical CT angiography of the neck was performed. Source data was reformatted into multiple MIP projections. Delayed post contrast acquisition was also obtained. INDICATION: Dizziness and blurry vision. FINDINGS: There is a normal branching pattern of the thoracic aorta. The common carotid arteries are widely patent. Both internal carotid arteries are tortuous. There is moderate atherosclerotic plaque about the cavernous portion of both internal carotid arteries. There appears to be a significant stenosis in the right internal carotid artery. There is a dominant right vertebral artery. Both vertebral arteries are widely patent. Basilar artery is patent. There are no definite proximal intracranial branch occlusions, vascular malformations or aneurysms. The globes and intraorbital structures are unremarkable. The parotid, submandibular and thyroid glands are normal in appearance. The lung apices are clear. There are mild degenerative changes in the cervical spine. The nasopharyngeal, oropharyngeal and hypopharyngeal tissues are symmetrical and without mass effect. Sinuses and mastoid air cells are clear. IMPRESSION: 1. Moderate atherosclerotic calcification about the carotid siphons, bilaterally, right greater than left. There are findings suspect for high-grade stenosis at the right internal carotid artery in its cavernous portion. Further evaluation with formal angiography is recommended. 2. There are, however, no proximal intracranial branch occlusions, vascular malformations or aneurysms. 3. No other acute abnormality in the head or neck. Dictated by: Dictated on workstation # [id number]
[2017-12-04] MEDS ORDERED: PROMETHAZINE INJ 25 MG/ML (PHENERGAN) AMP IVP ONE (22:30)
--- NOTE | 2017-12-04 22:36 | ED Neurological Problem ---
General Chief Complaint: Dizziness/Syncope Stated Complaint: DIZZINESS/BLURRY VISION Nursing Triage Note: Pt c/o dizziness and bilat blurred vision starting at 1300 today. Pt reports " my whole body feels blurry". Pt also c/o indigestion and nausea and states she feels off balance when walking. Nursing Sepsis Screen: No Definite Risk Source: patient Exam Limitations: no limitations History of Present Illness Date Seen by Provider: Dec 05, 2017 Time Seen by Provider: 19:40 Initial Comments This 62-year-old woman presents to the emergency room with sudden onset of dizziness and disequilibrium starting at around 13:00. Blood pressure on arrival was 228/96. Her disequilibrium is so severe that she is unable to walk unassisted. She is nauseated and complains of blurry vision with no field of vision deficits. She feels generalized numbness throughout her body. She has some slight indigestion and tenderness in the epigastrium. Her chest feels a little heavy. She takes enalapril for her hypertension and took it around 09: 00. She reports seeing Dr. Sutton in the office today and stated her blood pressure there was 140/70 at 10:30. Patient reports taking a new kind of insulin today. Stroke activation was paged. Patient was outside the TPA treatment window and was therefore not a TPA candidate. Initial NIH score was 1 for mild numbness on the right face. Patient had notable disequilibrium with ambulation and required assistance. Allergies and Home Medications Allergies Coded Allergies: No Known Drug Allergies (Unverified , 01/19/11) Home Medications Aspirin 81 Mg Chew, 81 MG PO DAILY, (Reported) Atorvastatin Calcium 10 Mg Tablet, 10 MG PO DAILY Prescribed by: TAYO SUTTON on 05/08/17 0758 Doxycycline Hyclate 100 Mg Tablet, 100 MG PO BID Prescribed by: HIRAM COELHO on 08/08/17 1224 Enalapril Maleate 20 Mg Tablet, 20 MG PO BID, (Reported) Gabapentin 300 Mg Cap, 600 MG PO 0800,1200, (Reported) TAKES 2 (300MG) CAPSULES Gabapentin 300 Mg Capsule, 900 MG PO HS, (Reported) TAKES 3 (300MG) CAPSULES Metformin HCl 500 Mg Tab.er.24, 1,000 MG PO BID, (Reported) TAKES 2 (500MG) TABLETS Tramadol HCl 50 Mg Tablet, 50 MG PO TID, (Reported) Patient Home Medication List Home Medication List Reviewed: Yes Constitutional: see HPI Eyes: See HPI Ears, Nose, Mouth, Throat: no symptoms reported Respiratory: no symptoms reported Cardiovascular: see HPI Gastrointestinal: see HPI Genitourinary: no symptoms reported : No Musculoskeletal: no symptoms reported Skin: no symptoms reported Psychiatric/Neurological: See HPI Endocrine: No Symptoms Reported Hematologic/Lymphatic: No Symptoms Reported Past Ilfjpkp-Irwlig-Xakqxn Hx Patient Social History Alcohol Use: Denies Use Recreational Drug Use: No Smoking Status: Former Smoker Type Used: Cigarettes Former Smoker, Quit: Jun 03, 1990 Recent Foreign Travel: No Contact w/Someone Who Travel: No Recent Infectious Disease Expo: No Recent Hopitalizations: No Immunizations Up To Date Tetanus Booster (TDap): Less than 5yrs PED Vaccines UTD: Yes Date of Pneumonia Vaccine: Jun 03, 2011 Seasonal Allergies Seasonal Allergies: No Surgeries History of Surgeries: Yes (tubal ligation) Surgeries: Tubal Ligation Respiratory History of Respiratory Disorde: No Currently Using CPAP: No Currently Using BIPAP: No Cardiovascular History of Cardiac Disorders: Yes Cardiac Disorders: Hypertension, Peripheral Vascular Neurological History of Neurological Disord: Yes Neurological Disorders: Neuropathy 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 System Hx 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 Disorders: Yes Female 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 Disorders: Denies Genitourinary History of Genitourinary Disor: No Gastrointestinal History of Gastrointestinal Di: Yes Gastrointestinal Disorders: Gall Bladder Disease Musculoskeletal History of Musculoskeletal Dis: Yes Musculoskeletal Disorders: Fibromyalgia Endocrine History of Endocrine Disorders: Yes Endocrine Disorders: Diabetes, Non-Insulin dep HEENT History of HEENT Disorders: No Loss of Vision: Denies Hearing Impairment: Denies Cancer History of Cancer: No Psychosocial History of Psychiatric Problem: No Integumentary History of Skin or Integumenta: Yes (diabetic ulcer right foot) Blood Transfusions History of Blood Disorders: No Adverse Reaction to a Blood Tr: No Family Medical History Significant Family History: No Pertinent Family Hx Family Medial History: Cardiovascular disease 19 MOTHER G8 BROTHER G8 BROTHER Diabetes mellitus 19 FATHER 19 MOTHER G8 BROTHER G8 SISTER FH: brain tumor FH: lung cancer FHx: peripheral neuropathy Lung c Neuro Physical Exam Vital Signs Vital Signs - First Documented 12/04/17 19:32 Temp 97.7 Pulse 90 Resp 18 B/P (MAP) 221/98 (139) O2 Delivery Room Air Capillary Refill : Less Than 3 Seconds General Appearance: WD/WN, mild distress HEENT: PERRL/EOMI, normal ENT inspection, pharynx normal Neck: normal inspection Respiratory: lungs clear, normal breath sounds, no respiratory distress, no accessory muscle use Cardiovascular: regular rate, rhythm, no edema, no murmur Gastrointestinal: normal bowel sounds, soft, tenderness (slight tenderness in the epigastrium) Extremities: normal inspection, no pedal edema 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, no motor/sensory deficits, alert, normal mood/affect, oriented x 3, other (Marked disequilibrium) Crainal Nerves: normal hearing, normal speech, PERRL Coordination/Gait: normal finger to nose (normal heel to gerard), abnormal gait Skin: normal color, warm/dry Stroke NIH Stroke Scale Assessment Level of Consciousness: 0=Alert (0), Level of Consciousness-Questions: 0= Answers both month/age (0), LOC Commands: 0=Performs both tasks (0), Visual Rollins: 0=No visual loss (0), Facial Movement (Facial Paresis): 0=Normal symmetrical mnt (0), Motor Function-Arms Right: 0=No drift (0), Motor Function- Arms Left: 0=No drift (0), Motor Function-Legs Right: 0=No drift (0), Motor Function-Legs Left: 0=No drift (0), Limb Ataxia: 0=Absent (0), Sensory: 1=Mild to Moderate loss (1), Best Language: 0=No aphasia (0), Dysarthria: 0=Normal (0) , Extinction & Inattention: 0=No abnormality (0), Total: 1 Progress/Results/Core Measures Results/Orders Lab Results Laboratory Tests Test 12/04/17 19:45 12/04/17 20:15 Range/Units White Blood Count 7.5 4.3-11.0 10^3/uL Red Blood Count 4.37 4.35-5.85 10^6/uL Hemoglobin 12.1 11.5-16.0 G/DL Hematocrit 37 35-52 % Mean Corpuscular Volume 86 80-99 FL Mean Corpuscular Hemoglobin 28 25-34 PG Mean Corpuscular Hemoglobin Concent 32 32-36 G/DL Red Cell Distribution Width 14.3 10.0-14.5 % Platelet Count 212 130-400 10^3/uL Mean Platelet Volume 9.4 7.4-10.4 FL Neutrophils (%) (Auto) 64 42-75 % Lymphocytes (%) (Auto) 25 12-44 % Monocytes (%) (Auto) 9 0-12 % Eosinophils (%) (Auto) 3 0-10 % Basophils (%) (Auto) 0 0-10 % Neutrophils # (Auto) 4.8 1.8-7.8 X 10^3 Lymphocytes # (Auto) 1.8 1.0-4.0 X 10^3 Monocytes # (Auto) 0.7 0.0-1.0 X 10^3 Eosinophils # (Auto) 0.2 0.0-0.3 10^3/uL Basophils # (Auto) 0.0 0.0-0.1 10^3/uL Prothrombin Time 12.9 12.2-14.7 SEC INR Comment 1.0 0.8-1.4 Activated Partial Thromboplast Time 27 24-35 SEC D-Dimer < 0.27 0.00-0.49 UG/ML Sodium Level 137 135-145 MMOL/L Potassium Level 4.2 3.6-5.0 MMOL/L Chloride Level 101 98-107 MMOL/L Carbon Dioxide Level 25 21-32 MMOL/L Anion Gap 11 5-14 MMOL/L Blood Urea Nitrogen 16 7-18 MG/DL Creatinine 0.76 0.60-1.30 MG/DL Estimat Glomerular Filtration Rate > 60 BUN/Creatinine Ratio 21 Glucose Level 291 H 70-105 MG/DL Calcium Level 9.2 8.5-10.1 MG/DL Total Bilirubin 0.3 0.1-1.0 MG/DL Aspartate Amino Transf (AST/SGOT) 27 5-34 U/L Alanine Aminotransferase (ALT/SGPT) 49 0-55 U/L Alkaline Phosphatase 73 40-136 U/L Troponin I < 0.30 <0.30 NG/ML Total Protein 7.1 6.4-8.2 GM/DL Albumin 4.1 3.2-4.5 GM/DL TSH [place] Testing 0.96 0.35-4.94 UIU/ML Urine Color YELLOW Urine Clarity CLEAR Urine pH 6.5 5-9 Urine Specific [place] 1.015 L 1.016-1.022 Urine Protein 1+ H NEGATIVE Urine Glucose (UA) 4+ H NEGATIVE Urine Ketones 2+ H NEGATIVE Urine Nitrite NEGATIVE NEGATIVE Urine Bilirubin NEGATIVE NEGATIVE Urine Urobilinogen NORMAL NORMAL MG/DL Urine Leukocyte Esterase 1+ H NEGATIVE Urine RBC (Auto) 1+ H NEGATIVE Urine RBC 10-25 H /HPF Urine WBC 10-25 H /HPF Urine Squamous Epithelial Cells 2-5 /HPF Urine Crystals NONE /LPF Urine Bacteria MODERATE H /HPF Urine Casts NONE /LPF Urine Mucus NEGATIVE /LPF Urine Culture Indicated YES My Orders Orders - MICK HEARD MD Saline Lock/Iv-Start (12/04/17:39) Ekg Tracing (12/04/17:39) Monitor-Rhythm Ecg Trace Only (12/04/17:39) Cbc With Automated Diff (12/04/17:39) Comprehensive Metabolic Panel (12/04/17:39) Thyroid Analyzer (12/04/17:39) Ua Culture If Indicated (12/04/17:39) Protime With Inr (12/04/17 19:51) Partial Thromboplastin Time (12/04/17 19:51) Fibrin Degradation Products (12/04/17 19:51) Troponin I (12/04/17 19:51) Chest 1 View, Ap/Pa Only (12/04/17 19:51) Accucheck Stat ONCE (12/04/17 19:51) Vital Signs Stroke Patient Q15M (12/04/17 19:51) Ct Head Wo-R/O Stroke (12/04/17 19:51) O2 (12/04/17 19:51) Intake & Output 06,14,22 (12/04/17 19:51) Dysphagia Screening Tool (12/04/17 19:51) Labetalol Injection (Normodyne Injection (12/04/17 20:00) Ondansetron Injection (Zofran Injectio (12/04/17 20:00) Urine Culture (12/04/17 20:15) Ceftriaxone Injection (Rocephin Injectio (12/04/17 21:00) Labetalol Injection (Normodyne Injection (12/04/17 21:00) Ct Angio Head/Neck (12/04/17 20:50) Iohexol Injection (Omnipaque 350 Mg/Ml 1 (12/04/17 21:15) Ns (Ivpb) (Sodium Chloride 0.9%) (12/04/17 21:15) Pharmacy Communication (Pharmacy Communi (12/04/17 21:01) Promethazine Injection (Phenergan Injec (12/04/17 22:30) Aspirin Tablet (Aspirin Tablet) (12/04/17 22:45) Gabapentin Capsule/Tablet (Neurontin Cap (12/04/17 22:45) Tramadol Tablet (Ultram Tablet) (12/04/17 22:45) Medications Given in ED Current Medications Medications Dose Ordered Sig/[place] Route Start Time Stop Time Status Last Admin Dose Admin Aspirin 325 mg ONCE ONCE PO 12/04/17 22:45 12/04/17 22:46 DC 12/04/17 23:01 325 MG Ceftriaxone Sodium 1000 mg/ Sodium Chloride 100 ml @ 200 mls/hr ONCE ONCE IV 12/04/17 21:00 12/04/17 21:29 DC 12/04/17 21:28 200 MLS/HR Gabapentin 600 mg ONCE ONCE PO 12/04/17 22:45 12/04/17 22:46 DC 12/04/17 23:01 600 MG Iohexol 80 ml ONCE ONCE IV 12/04/17 21:15 12/04/17 21:16 DC 12/04/17 21:11 80 ML Labetalol HCl 10 mg ONCE ONCE IV 12/04/17 20:00 12/04/17 20:01 DC 12/04/17 19:59 10 MG Labetalol HCl 10 mg ONCE ONCE IV 12/04/17 21:00 12/04/17 21:01 DC 12/04/17 20:55 10 MG Ondansetron HCl 8 mg ONCE ONCE IVP 12/04/17 20:00 12/04/17 20:01 DC 12/04/17 19:58 8 MG Promethazine HCl 12.5 mg ONCE ONCE IVP 12/04/17 22:30 12/04/17 22:31 DC 12/04/17 22:27 12.5 MG Sodium Chloride 250 ml ONCE ONCE IV 12/04/17 21:15 12/04/17 21:16 DC 12/04/17 21:11 80 ML Tramadol HCl 50 mg ONCE ONCE PO 12/04/17 22:45 12/04/17 22:46 DC 12/04/17 23:01 50 MG Vital Signs/I&O Vital Sign - Last 12Hours 12/04/17 19:32 Temp 97.7 Pulse 90 Resp 18 B/P (MAP) 221/98 (139) O2 Delivery Room Air Intake and Output 12/05/17 00:00 Intake Total 100 ml Balance 100 ml Blood Pressure Mean: 139 Progress Note #1: Time: 19:55 Progress Note Patient seen and examined. Stroke activation paged due to significant sudden onset of disequilibrium. Patient is outside of the TPA treatment window and is therefore not considered a candidate for thrombolytic therapy. Progress Note #2: Time: 20:[address] of the head showed possible attenuation change in the left temporal lobe. Hypertension was treated with labetalol. Urinary tract infection was found by urinalysis and is being treated with Rocephin. Case was discussed with Dr. Purdy, stroke neurologist at [facility]. He agrees that patient is not a TPA candidate. He does suggest further imaging, possibly starting was CT angiogram tonight. Progress Note #3: Time: 22:33 Progress Note Systolic blood pressure has improved with labetalol to 151. Patient states her blurry vision has improved. Nausea persists and will be further treated with Phenergan. I walked the patient again and her ambulation is about 50 percent improved per my interpretation. CT angiogram of the head and neck revealed possible stenosis of the right internal carotid artery. Vertebral and basilar arteries were patent. I spoke with Dr. Purdy again who advised monitoring tonight and MRA of the head without contrast and MRA of the neck with contrast to be performed tomorrow morning. Further treatment will be based off of results of that study. Patient can likely have outpatient angiography done within the next week. Patient was treated for urinary tract infection with Rocephin. Dr. Rosario do not believe patient would benefit from emergent transfer to a higher level of care at this time. Progress Note #4: Time: 22:50 Progress Note Aspirin 325 mg was given after dysphagia screening. Patient is also requesting medication for her neuropathy. She normally takes 900 mg at night. I reduced the dose to 600 mg that she was mildly somnolent from Phenergan. Tramadol 50 mg was also given per her usual dosing. ECG Initial ECG Impression Date: Dec 04, 2017 Initial ECG Impression Time: 19:35 Initial ECG Rate: 83 Initial ECG Rhythm: Normal Sinus Initial ECG Intervals: Normal Initial ECG Impression: Normal Comment Normal sinus rhythm with no ST elevation or depression. No abnormal intervals or axis deviation. Diagnostic Imaging Diagonstic Imaging: CT Plain Films/CT/US/NM/MRI: head Comments CT head viewed by me and report reviewed. See report below: NAME: [facility] REC#: [id number] PT STATUS: REG ER : 1955 PHYSICIAN: MICK HEARD MD ADMIT DATE: 12/04/17/ER Signed Date of Exam: 12/04/17 CT HEAD WO-R/O STROKE INDICATION: Stroke, dizziness and blurry vision. COMPARISON: Prior examination from 05/06/2017. EXAMINATION: CT of the head without contrast. FINDINGS: The ventricles and sulci are within normal limits. There is no hydrocephalus. There is no midline shift. There is no intracranial mass, hemorrhage or extra-axial fluid collection. There is some mild chronic microvascular ischemic disease. There is some questionable decreased attenuation in the left temporal lobe. Possibility of developing CVA cannot be excluded. Calvarium and sinuses are clear. IMPRESSION: 1. Questionable diffuse decreased attenuation in the left temporal lobe. Developing CVA cannot be excluded. Further evaluation with MRI is recommended. 2. Unchanged mild chronic microvascular ischemic disease. Report was called to COLEMAN Mckeon (for Dr. Mick Najera) in the [facility] ER at 8:35 p.m., by jordan. Dictated by: Dictated on workstation # [id number] Dict: 12/04/172013 Trans: 12/04/172047 Interpreted by: ANGELA GONZALEZ MD Electronically signed by: ANGELA GONZALEZ MD 12/04/172047 Diagonstic Imaging: Xray Plain Films/CT/US/NM/MRI: chest Comments Chest x-ray viewed by me and report reviewed. See report below: NAME: [facility] REC#: [id number] PT STATUS: REG ER : 1955 PHYSICIAN: MICK HEARD MD ADMIT DATE: 12/04/17/ER Signed Date of Exam: 12/04/17 CHEST 1 VIEW, AP/PA ONLY INDICATION: Stroke, dizziness and blurry vision. COMPARISON: Prior examination from 08/08/2017. FINDINGS: The heart size, mediastinal configuration, and pulmonary vascularity are within normal limits. There is no pleural effusion, pneumothorax, or pneumonia. The osseous structures are unremarkable. IMPRESSION: No acute cardiopulmonary abnormality. Dictated by: Dictated on workstation # [id number] Dict: 12/04/172010 Trans: 12/04/172047 Interpreted by: ANGELA GONZALEZ MD Electronically signed by: ANGELA GONZALEZ MD 12/04/172047 Diagonstic Imaging: CT Plain Films/CT/US/NM/MRI: other (CT angiogram head and neck) Comments NAME: [facility] REC#: [id number] PT STATUS: REG ER : 1955 PHYSICIAN: MICK HEARD MD ADMIT DATE: 12/04/17/ER Signed Date of Exam: 12/04/17 CT ANGIO HEAD/NECK PROCEDURE: CT angiography of the head and CT angiography of the neck with and without contrast. TECHNIQUE: Contiguous noncontrast images were obtained from the skull base through the vertex. After intravenous contrast administration, helical CT angiography of the neck was performed. Source data was reformatted into multiple MIP projections. Delayed post contrast acquisition was also obtained. INDICATION: Dizziness and blurry vision. FINDINGS: There is a normal branching pattern of the thoracic aorta. The common carotid arteries are widely patent. Both internal carotid arteries are tortuous. There is moderate atherosclerotic plaque about the cavernous portion of both internal carotid arteries. There appears to be a significant stenosis in the right internal carotid artery. There is a dominant right vertebral artery. Both vertebral arteries are widely patent. Basilar artery is patent. There are no definite proximal intracranial branch occlusions, vascular malformations or aneurysms. The globes and intraorbital structures are unremarkable. The parotid, submandibular and thyroid glands are normal in appearance. The lung apices are clear. There are mild degenerative changes in the cervical spine. The nasopharyngeal, oropharyngeal and hypopharyngeal tissues are symmetrical and without mass effect. Sinuses and mastoid air cells are clear. IMPRESSION: 1. Moderate atherosclerotic calcification about the carotid siphons, bilaterally, right greater than left. There are findings suspect for high-grade stenosis at the right internal carotid artery in its cavernous portion. Further evaluation with formal angiography is recommended. 2. There are, however, no proximal intracranial branch occlusions, vascular malformations or aneurysms. 3. No other acute abnormality in the head or neck. Dictated by: Dictated on workstation # [id number] Dict: 12/04/172130 Trans: 12/04/172154 Interpreted by: ANGELA GONZALEZ MD Electronically signed by: ANGELA GONZALEZ MD 12/04/172154 Departure Communication (Admissions) Time/Spoke to Admitting Phy: 23:[address] Farias Impression Impression: Primary Impression: Hypertensive emergency Additional Impressions: Disequilibrium Urinary tract infection Qualified Codes: N39.0 - Urinary tract infection, site not specified Disposition: ADMITTED INPATIENT Condition: Improved Admissions Decision to Admit Reason: Admit from ER (General) Decision to Admit/Date: Dec 04, 2017 Time/Decision to Admit Time: 22:30 Departure-Patient Inst. Referrals: TAYO SUTTON DO (PCP/Family) Primary Care Physician MICK HEARD MD Dec 04, 2017 22:35
[2017-12-04] MEDS ORDERED: ASPIRIN 325 MG (5 GR) TABLET PO ONE (22:45)
[2017-12-04] MEDS ORDERED: GABAPENTIN 300 MG (NEURONTIN) CAP PO ONE (22:45)
[2017-12-05] VITALS (23 sets, daily range): BP systolic 126–189; BP diastolic 5–85
[2017-12-05] MEDS ORDERED: INFLUENZA TRIvalent 2017-2018 0.5 ML/45 MCG SYR IM ONE (07:45)
[2017-12-05] MEDS ORDERED: OMEP20TA33 PO (09:02)
[2017-12-05] MEDS ORDERED: INSU100I32 SQ (09:50)
[2017-12-05] MEDS ORDERED: GLIM4TAB PO (09:50)
--- NOTE | 2017-12-05 11:34 | Physical Therapy Evaluation ---
PT Evaluation-General Medical Diagnosis Admission Date Dec 04, 2017 at 23:15 Medical Diagnosis: dizziness Onset Date: Dec 04, 2017 Therapy Diagnosis Therapy Diagnosis: unsteady gait Height/Weight Height (Feet): 5 Height (Inches): 5.00 Weight (Pounds): 192 Weight (Ounces): 4.0 Precautions Precautions/Isolations: Standard Precautions Weight Bear Status Full Weight Bearing Full Weight Bearing Referral Physician: Dr. Farias Reason for Referral: Evaluation/Treatment Medical History Pertinent Medical History: DM, HTN, Neuropathy, PVD Additional Medical History gall bladder, fibromyalgia, diabetic ulcer R foot Current History Presented to ER with dizziness, disequilibrium, high BP Reviewed History: Yes Social History Home: Single Level Current Living Status: Spouse Entry Into Home: Stairs With Railing Prior/Core FIM Prior Level of Function Functional [place] Measure 0=Not Assessed/NA 4=Minimal Assistance 1=Total Assistance 5=Supervision or Setup 2=Maximal Assistance 6=Modified [place] 3=Moderate Assistance 7=Complete [place] Bed Mobility: 7 Transfers (B,C,W/C) (FIM): 7 Gait: 7 PT Evaluation-Current Subjective Pt. in bed with c/o continued dizziness, although she says it is improved. She denies pain. Pt/Family Goals home with spouse Objective Patient Orientation: Person, Place, Time, Situation telemetry, BP cuff ROM/Strength ROM Upper Extremities WFL ROM Lower Extremities WFL Strength Upper Extremities WFL Strength Lower Extremities grossly 5/5 (B) Integumentary/Posture Integumentary see nursing notes Bowel Incontinence: No Bladder Incontinence: No Posture generally upright Neuromuscular (Tone, Coordination, Reflexes) unremarkable Sensory Vision: Functional Hearing: Functional Sensation Right Upper Extremit: Impaired Sensation Left Upper Extremity: Impaired Sensation Right Lower Extremit: Impaired Sensation Left Lower Extremity: Impaired Transfers Functional [place] Measure 0=Not Assessed/NA 4=Minimal Assistance 1=Total Assistance 5=Supervision or Setup 2=Maximal Assistance 6=Modified [place] 3=Moderate Assistance 7=Complete [place] Transfers (B, C, W/C) (FIM): 4 Supine to/from Sit: 5 Sit to/from Stand: 4 pt. completed toilet transfer SBA, toileting mod (I) Gait Mode of Locomotion: Walk Anticipated Mode of Locomotion: Walk Gait (FIM): 4 Distance (FIM): 3=150 ft Distance: 2 x 150 ft Gait Level of Assist: 4 Gait Persons Needed: 1 Gait Assistive Device: FWW Comments/Gait Description mild gait unsteadiness requiring CGA from therapy, occasionally leans to left but does self-correct Balance Sitting Static: Good Sitting Dynamic: Good Standing Static: Fair Standing Dynamic: Fair Treatment gait, toileting Assessment/Needs Pt. is a 62 y.o. female with gait unsteadiness due to continued dizziness/ disequilibrium. Pt. currently requires CGA for ambulation and did well with use of FWW. Pt. will benefit from skilled PT to restore PLOF and safety with mobility. Rehab Potential: Good PT Senior Care Goals Province Archivist Goals PT Senior Care Goals Time Frame: Dec 12, 2017 Transfers (B,C,W/C) (FIM): 7 Gait (FIM): 6 Gait distance (FIM): 3=150 ft Distance: 200 ft Gait Level of Assist: 6 Gait Assistive Device: None PT Plan Problem List Problem List: Activity Tolerance, Functional Strength, Safety, Balance, Gait, Transfer, Bed Mobility Treatment/Plan Treatment Plan: Continue Plan of Care Treatment Plan: Bed Mobility, Education, Functional Activity Key, Functional Strength, Gait, Safety, Therapeutic Exercise, Transfers Treatment Duration: Dec 12, 2017 Frequency: 6 times per week Estimated Hrs Per Day: .5 hour per day Patient and/or Family Agrees t: Yes Time/GCodes Time In: 1055 Time Out: 1118 Total Billed Treatment Time: 23 Total Billed Treatment 1, EVLOWC 10', GT 13' DORETHA BLANCAS PT Dec 05, 2017 11:34
[2017-12-05] MEDS: GABAPENTIN 300 MG (NEURONTIN) CAP PO SCH ×2 (13:18→20:12)
[2017-12-05] MEDS ORDERED: GADOBUTROL 10 MMOL/10 ML (GADAVIST) VIAL IV ONE (13:45)
--- NOTE | 2017-12-05 13:46 | Diagnostic Imaging Report ---
PROCEDURE: MR angiography of the brain without the use of contrast. TECHNIQUE: 3D [id number] non contrast enhanced MR angiography of the head was performed. A source data was reformatted into rotating MIP projections. INDICATION: Dizziness and nausea for one day. Carotid stenosis. Imbalance MR angiography of the head shows the distal internal and vertebral arteries to be widely patent as is the basilar artery. There is no evidence for aneurysm, AVM, neovascularity or major vessel occlusion. IMPRESSION: Normal MR angiography of the head. Dictated by: Dictated on workstation # [id number]
--- NOTE | 2017-12-05 13:47 | History & Physical ---
History of Present Illness History of Present Illness Reason for visit/HPI CC: HTN emergency HPI: This is a 62-year-old white female clinic patient of Dr. Bernabe who presents to the ER with difficulty with balance and vision changes and severe hypertension evaluated to be a hypertensive emergency. She was assessed for stroke and upon recommendations from stroke center it was recommended that the high blood pressure should be treated aggressively in the ICU monitor closely and obtain MRI of the brain and neck to evaluate for the right carotid endarterectomy status. She was not a TPA candidate and none was initiated. She reports that she had just been seen by Dr. Bernabe for dizziness her blood pressure is 140/70 at that time yesterday morning but began to have worsening symptoms and ultimately presented to the ER. At this current time her blood pressure is more controlled and MRI has been done. I have reconcile all of her home medications and she has no other concerns at this time. She does not have any vision loss currently and denies any headache or any dizziness. She currently has a right great toe diabetic ulcer which is managed by Dr. Sarmiento podiatry Date of Admission Dec 04, 2017 at 23:15 Date Seen by Provider: Dec 05, 2017 Time Seen by Provider: 11:00 I consulted on this patient on 12/05/17 13:41 Attending Physician Lin Norris DO Admitting Physician Nino Bernabe DO Consult Allergies and Home Medications Allergies Coded Allergies: No Known Drug Allergies (Unverified , 01/19/11) Home Medications Aspirin 81 Mg Chew, 81 MG PO DAILY, (Reported) Enalapril Maleate 20 Mg Tablet, 20 MG PO BID, (Reported) Gabapentin 300 Mg Cap, 900 MG PO 0800,1200, (Reported) TAKES 2 (300MG) CAPSULES Gabapentin 300 Mg Capsule, 900 MG PO HS, (Reported) TAKES 3 (300MG) CAPSULES Glimepiride 4 Mg Tablet, 8 MG PO DAILY, (Reported) Insulin Degludec 100 Unit/1 Ml Insuln.pen, 17 UNIT SQ DAILY, (Reported) Metformin HCl 500 Mg Tab.er.24, 1,000 MG PO BID, (Reported) TAKES 2 (500MG) TABLETS Omeprazole Magnesium 20 Mg Tablet.dr, 20 MG PO DAILY, (Reported) Tramadol HCl 50 Mg Tablet, 50 MG PO TID, (Reported) Patient Home Medication List Home Medication List Reviewed: Yes Past Zawbdxn-Lanmex-Jtucfm Hx Past Med/Social Hx: Reviewed Nursing Past Med/Soc Hx, Reviewed and Corrections made Patient Social History Marrital Status: single 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) Alcohol Use: Denies Use Recreational Drug Use: No Smoking Status: Former Smoker Former Smoker, Quit: Jun 03, 1990 Type Used: Cigarettes Physical Abuse Screen: No Sexual Abuse: No Recent Foreign Travel: No Contact w/other who traveled: No Recent Hopitalizations: No Recent Infectious Disease Expo: No Immunizations Up To Date Tetanus Booster (TDap): Less than 5yrs Pediatric: No Date of Pneumonia Vaccine: Jun 03, 2011 Seasonal Allergies Seasonal Allergies: No Past Medical History Surgeries: Tubal Ligation Currently Using CPAP: No Currently Using BIPAP: No Cardiac: Hypertension, Peripheral Vascular Neurological: Neuropathy 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: Yes Female 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 Disorders: Denies Genitourinary: UTI-Chronic Gastrointestinal: Gastroesophageal Reflux, Gall Bladder Disease Musculoskeletal: Fibromyalgia Endocrine: Diabetes, Non-Insulin dep Are Your Blood Sugars Over 250: Yes Loss of Vision: Denies Hearing Impairment: Denies History of Blood Disorders: No Adverse Reaction to Blood [place]: No Family History Cardiovascular disease 19 MOTHER, G8 BROTHER G8 BROTHER Completed stroke 19 MOTHER, Diabetes mellitus 19 FATHER, 19 MOTHER, G8 BROTHER G8 SISTER FH: brain tumor FH: breast cancer 19 MOTHER, FH: lung cancer FHx: peripheral neuropathy Hypertension 19 FATHER, Lung c 19 FATHER, Myocardial infarction 19 MOTHER, Neuro No Pertinent Family Hx, Hypertension Constitutional: see HPI, dizziness, weakness EENTM: blurred vision Respiratory: no symptoms reported Cardiovascular: no symptoms reported Gastrointestinal: no symptoms reported Musculoskeletal: no symptoms reported Skin: no symptoms reported Psychiatric/Neurological: No Symptoms Reported All Other Systems Reviewed Negative Unless Noted: Yes Physical Exam Vital Signs Vital Signs - First Documented 12/04/17 12/05/17 19:32 00:38 Temp 97.7 Pulse 90 Resp 18 B/P (MAP) 221/98 (139) Pulse Ox 96 O2 Delivery Room Air Capillary Refill : Less Than 3 Seconds General Appearance: No Apparent Distress, WD/WN, Chronically ill, Obese Eyes: Bilateral Eye Normal Inspection, Bilateral Eye PERRL, Bilateral Eye EOMI HEENT: PERRL/EOMI, TMs Normal, Normal ENT Inspection, Pharynx Normal Neck: Full Range of Motion, Normal Inspection, Non Tender, Supple, Carotid Bruit Respiratory: Chest Non Tender, Lungs Clear, Normal Breath Sounds, No Accessory Muscle Use, No Respiratory Distress Cardiovascular: Regular Rate, Rhythm, No Edema, No Gallop, No JVD, No Murmur, Normal Peripheral Pulses Gastrointestinal: Normal Bowel Sounds, No Organomegaly, No Pulsatile Mass, Non Tender, Soft Back: Normal Inspection, No CVA Tenderness, No Vertebral Tenderness Extremity: Normal Capillary Refill, Normal Inspection, Normal Range of Motion, Non Tender, No Calf Tenderness, No Pedal Edema Neurologic/Psychiatric: Alert, Oriented x3, No Motor/Sensory Deficits, Normal Mood/Affect Skin: Normal Color, Warm/Dry, Other (right great toe dressing intact) Lymphatic: No Adenopathy Assessment/Plan Assessment and Plan Hypertensive emergency with blurred vision and neurological deficits now resolved with MRI pending History of hypertension chronic GERD Fibromyalgia Diabetes mellitus Right diabetic foot ulcer managed by podiatry Plan: Check MRI results Reconcile all home meds Monitor blood pressure closely in light follow-up on right carotid stenosis per patient Diabetic ulcer management Problems: (1) Fibromyalgia Status: Chronic (2) Hypertensive emergency Status: Acute (3) Disequilibrium Status: Acute (4) Urinary tract infection Status: Acute (5) Diabetic ulcer of left foot Status: Acute Admission Diagnosis Admission Status: Inpatient Order (span 2 midnights) Reason for Inpatient Admission: Severe HTN with neurolgical deficits Clinical Quality Measures DVT/VTE Risk/Contraindication: Risk Factor Score Per Nursin RFS Level Per Nursing on Admit: 3=High Problem Qualifiers (1) Urinary tract infection: Urinary tract infection type: site unspecified Hematuria presence: without hematuria Qualified Codes: N39.0 - Urinary tract infection, site not specified (2) Diabetic ulcer of left foot: Diabetic foot ulcer location: toe Diabetes mellitus type: type 2 Non- pressure ulcer stage: unspecified non-pressure ulcer stage Qualified Codes: E11.621 - Type 2 diabetes mellitus with foot ulcer; L97.529 - Non-pressure chronic ulcer of other part of left foot with unspecified severity LIN NORRIS DO Dec 05, 2017 13:47
--- NOTE | 2017-12-05 13:47 | Diagnostic Imaging Report ---
PROCEDURE: MR angiography neck with contrast. TECHNIQUE: Contrast-enhanced MR angiography of the neck was performed. Source data was reformatted into rotating MIP projection. INDICATION: Dizzy and nausea for one day. Carotid stenosis. The common carotid artery is widely patent. There is no evidence of any hemodynamically significant stenosis at the carotid bifurcations on either side. No significant vessel irregularity is evident. The distal internal carotid arteries are also widely patent. There is flow in the vertebral arteries. IMPRESSION: No significant abnormality is seen. Dictated by: Dictated on workstation # [id number]
[2017-12-05] MEDS ORDERED: hydrALAZINE (APRESOLINE) 25 MG TAB PO PRN (14:15)
[2017-12-05] MEDS: ENALAPRIL 10 MG (VASOTEC) TAB PO SCH ×2 (14:43→20:12)
[2017-12-05] MEDS: amLODIPine 5 MG (NORVASC) TAB PO SCH (14:43)
[2017-12-05] MEDS ORDERED: cefTRIAXone INJECTION 1,000 MG in NS (IVPB) 100 ML IV SCH (20:00)
[2017-12-05] MEDS ORDERED: ENALAPRIL 10 MG (VASOTEC) TAB PO SCH (21:00)
[2017-12-05] MEDS ORDERED: RX-TRAMADOL 50 MG (ULTRAM) TAB PPK#4 PO SCH (21:00)
[2017-12-06] VITALS (12 sets, daily range): BP systolic 169–222; BP diastolic 58–98
[2017-12-06] MEDS: PANTOPRAZOLE 20 MG TABLET (PROTONIX) PO SCH (05:44)
[2017-12-06] MEDS: GLIMEPIRIDE 4 MG (AMARYL) TAB PO SCH (05:44)
[2017-12-06] MEDS ORDERED: GABAPENTIN 300 MG (NEURONTIN) CAP PO SCH (08:00)
[2017-12-06] MEDS: GABAPENTIN 300 MG (NEURONTIN) CAP PO SCH ×3 (08:04→20:00)
[2017-12-06] MEDS: ASPIRIN 81 MG CHEW (CHILDREN'S ASA) PO SCH (08:04)
[2017-12-06] MEDS: amLODIPine 5 MG (NORVASC) TAB PO SCH (08:04)
[2017-12-06] MEDS: ENALAPRIL 10 MG (VASOTEC) TAB PO SCH ×2 (08:05→20:01)
--- NOTE | 2017-12-06 13:11 | Progress Note-Standard ---
Standard Progress Note Progress Notes/Assess & Plan Date Seen 12/06/17 Time Seen by Provider: 11:30 Assess & Plan/Chief Complaint Patient doing much better but blood pressure still remains high even though Norvasc was added yesterday and was given that this morning also and has required hydralazine Urine culture noted so we'll discontinue Rocephin and placed on Macrobid twice daily Blood sugars high so will do sliding scale and Accu-Cheks before meals and at bedtime Patient denies any pain Reviewed MRI and updated her on the results Bowels are not moving but does not want anything to help her Walking with a walker since she still dizzy No fever, vital signs stable except for blood pressure elevation Pleasant, oriented 3, family at the bedside Regular rate and rhythm, clear to auscultation bilaterally No edema Assessment: Status post malignant hypertensive emergency improved blood pressure readings but still not good enough to return home Diabetes mellitus out of control place on sliding scale UTI culture reviewed placed on Macrobid discontinued Rocephin Dizziness likely due to labile blood pressure uses walker and is a fall risk Plan: Hydralazine scheduled 3 times a day along with Norvasc 5 MG daily Nitroglycerin ointment as needed for significantly elevated blood pressures Monitor closely Will need a walker at discharge Labs Laboratory Tests 12/04/17 19:45 Diagnosis/Problems Diagnosis/Problems (1) Hypertensive emergency Status: Acute (2) Fibromyalgia Status: Chronic (3) Disequilibrium Status: Acute (4) Urinary tract infection Status: Acute Qualifiers: Qualified Codes: N39.0 - Urinary tract infection, site not specified (5) Diabetic ulcer of left foot Status: Acute Qualifiers: Qualified Codes: E11.621 - Type 2 diabetes mellitus with foot ulcer; L97.529 - Non-pressure chronic ulcer of other part of left foot with unspecified severity CARMEN NORRIS DO Dec 06, 2017 13:11
[2017-12-06] MEDS ORDERED: NITROGLYCERIN 2% OINT 1 GM UNIT DOSE PACKET TOP PRN (13:15)
[2017-12-06] MEDS ORDERED: hydrALAZINE (APRESOLINE) 25 MG TAB ONE (14:11)
[2017-12-06] MEDS: NITROFURANTOIN 100 MG (MACROBID) CAPSULE PO SCH ×2 (14:19→20:00)
[2017-12-06] MEDS: hydrALAZINE (APRESOLINE) 25 MG TAB PO SCH ×2 (14:22→20:00)
[2017-12-06] MEDS: inSUlin ASPART (NovoLOG) 1 UNIT/0.01 ML (CHARGE PER UNIT) SC SCH ×2 (16:17→20:07)
[2017-12-06] MEDS ORDERED: OMEP20CA12 PO (17:43)
[2017-12-06] MEDS ORDERED: ENAL20TA PO (17:43)
[2017-12-06] MEDS ORDERED: ASPI-983 PO (17:43)
[2017-12-06] MEDS: NITROGLYCERIN 2% OINT 1 GM UNIT DOSE PACKET TOP PRN (21:05)
[2017-12-06] MEDS ORDERED: amLODIPine 5 MG (NORVASC) TAB PO ONE (21:30)
[2017-12-07] VITALS (7 sets, daily range): BP systolic 145–174; BP diastolic 64–77
[2017-12-07] MEDS ORDERED: NITROGLYCERIN 2% OINT 1 GM UNIT DOSE PACKET ONE (05:34)
[2017-12-07] MEDS: GLIMEPIRIDE 4 MG (AMARYL) TAB PO SCH (05:40)
[2017-12-07] MEDS: inSUlin ASPART (NovoLOG) 1 UNIT/0.01 ML (CHARGE PER UNIT) SC SCH ×4 (05:40→21:29)
[2017-12-07] MEDS: NITROGLYCERIN 2% OINT 1 GM UNIT DOSE PACKET TOP PRN (05:40)
[2017-12-07] MEDS: PANTOPRAZOLE 20 MG TABLET (PROTONIX) PO SCH (05:40)
[2017-12-07] MEDS: hydrALAZINE (APRESOLINE) 25 MG TAB PO SCH ×3 (08:09→21:28)
[2017-12-07] MEDS: GABAPENTIN 300 MG (NEURONTIN) CAP PO SCH ×3 (08:09→21:29)
[2017-12-07] MEDS: ENALAPRIL 10 MG (VASOTEC) TAB PO SCH ×2 (08:09→21:28)
[2017-12-07] MEDS: amLODIPine 5 MG (NORVASC) TAB PO SCH (08:09)
[2017-12-07] MEDS: ASPIRIN 81 MG CHEW (CHILDREN'S ASA) PO SCH (08:10)
--- NOTE | 2017-12-07 08:11 | Progress Note (SOAP) ---
Subjective Time Seen by Provider: 08:05 Subjective/Events-last exam patient blood pressure is still elevated. Uses walker to get around. Getting cardiology on board. GERD. Diabetes. Ulcer right diabetic foot. UTI. Objective Exam Vital Signs Date Time Temp Pulse Resp B/P (MAP) Pulse Ox O2 Delivery O2 Flow Rate FiO2 12/07/17 04:45 97.7 78 20 174/71 (105) 96 Room Air 12/07/17 00:35 97.4 84 20 172/77 (108) 95 Room Air 12/06/17 22:34 80 169/75 (106) 12/06/17 21:25 184/85 (118) 12/06/17 21:00 97 Room Air 12/06/17 20:50 180/58 (98) 12/06/17 20:48 87 222/98 (139) 12/06/17 19:53 190/78 (115) 12/06/17 19:50 86 18 203/92 (129) 94 Room Air 12/06/17 16:45 98.2 78 18 178/79 (112) 95 Room Air 12/06/17 11:56 97.5 74 22 177/77 (110) 94 Room Air 12/06/17 10:38 169/72 (104) I & O 12/07/17 07:00 Intake Total 2235 ml Balance 2235 ml Capillary Refill : Less Than 3 Seconds General Appearance: No Apparent Distress, WD/WN HEENT: Normal ENT Inspection Neck: Full Range of Motion, Normal Inspection Respiratory: Chest Non Tender, Lungs Clear, Normal Breath Sounds, No Accessory Muscle Use, No Respiratory Distress Cardiovascular: Regular Rate, Rhythm, No Murmur Gastrointestinal: non tender, soft Results Lab Laboratory Tests 12/06/17 16:04: Glucometer 305H 12/06/17 20:04: Glucometer 265H 12/07/17 05:33: Glucometer 332H Microbiology 12/05/17 MRSA Screen - Final, Complete MRSA not isolated 12/04/17 Urine Culture - Final, Complete Enterococcus faecalis Assessment/Plan Assessment/Plan Assess & Plan/Chief Complaint hypertension emergency. Dizziness. abdominal discomfort. Diabetes. Right diabetic foot ulcer. UTI. Headache. Uses walker to get around. Clinical Quality Measures DVT/VTE Risk/Contraindication: Risk Factor Score Per Nursin RFS Level Per Nursing on Admit: 3=High TAYO SUTTON DO Dec 07, 2017 08:11
[2017-12-07] MEDS: NITROFURANTOIN 100 MG (MACROBID) CAPSULE PO SCH ×2 (08:13→21:28)
[2017-12-07] MEDS ORDERED: amLODIPine 5 MG (NORVASC) TAB PO NR (09:30)
[2017-12-07] MEDS ORDERED: meTOprolol SUCCINATE 100 MG (TOPROL XL) TAB PO NR (09:30)
--- NOTE | 2017-12-07 09:31 | Consultation-Cardiology ---
HPI-Cardiology Cardiology Consultation: Date of Consultation 12/07/17 Time Seen by Provider: 09:10 Date of Admission Attending Physician Lin Farias DO Admitting Physician Nino Bernabe DO Consulting Physician DEBORA CARO MD, MA, FACP, FACC, FSCAI, CCDS HPI: Chief Complaint: Reason for consultation: Uncontrolled hypertension 62 yo woman admitted to Dr Bernabe with severe hypertension and associated encephalopathy (poor balance) w/o evidence of stroke on 12/04/17. Balance has improved. BP remains elevated. She denies cp, but does have slowly progressive exertional shortness of breath. Denies leg swelling. Has a chronically recurrent ulcer on the pad of R great toe, diagnosed as diabetic ulcer and managed by Dr Sarmiento. She denies palpitations or syncope Review of Systems-Cardiology Review of Systems Constitutional: malaise, tiredness, No weight loss, No weight gain Eyes: No vision change Ears/Nose/Throat: No ear discharge, No nasal drainage, No recent hearing loss Respiratory: As described under HPI Cardiovascular: As described under HPI Gastrointestinal: No constipation, No diarrhea, No difficulty swallowing, No vomiting Genitourinary: No dysuria, No hematuria, No urine frequency changes : No Musculoskeletal: No gout, No joint pain, No neck pain Skin: No rash on exposed areas, ulcerations on exposed areas (Small ulcer on plantar aspect of R great toe) Psychiatric/Neurological: No seizure, No focal weakness, No syncope All Other Systems Reviewed Negative Unless Noted: Yes RPN-[id number]-[id number] Hx Patient Social History Marrital Status: single 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 Family Medical History Family History: Cardiovascular disease 19 MOTHER, G8 BROTHER G8 BROTHER Completed stroke 19 MOTHER, Diabetes mellitus 19 FATHER, 19 MOTHER, G8 BROTHER G8 SISTER FH: brain tumor FH: breast cancer 19 MOTHER, FH: lung cancer FHx: peripheral neuropathy Hypertension 19 FATHER, Lung c 19 FATHER, Myocardial infarction 19 MOTHER, Neuro Allergies and Home Medications Allergies Coded Allergies: No Known Drug Allergies (Unverified , 01/19/11) Home Medications Aspirin 81 Mg Tablet.dr, 81 MG PO DAILY, (Reported) Enalapril Maleate 20 Mg Tablet, 20 MG PO BID, (Reported) Gabapentin 300 Mg Capsule, 900 MG PO TID, (Reported) TAKES 3 (300 MG) CAPSULES Glimepiride 4 Mg Tablet, 8 MG PO DAILY, (Reported) TAKES 2 (4 MG) TABLETS Insulin Degludec 100 Unit/1 Ml Insuln.pen, 17 UNIT SQ DAILY, (Reported) Metformin HCl 500 Mg Tab.er.24, 1,000 MG PO BID, (Reported) TAKES 2 (500 MG) TABLETS Omeprazole 20 Mg Capsule.dr, 20 MG PO DAILY, (Reported) Tramadol HCl 50 Mg Tablet, 50 MG PO TID, (Reported) Patient Home Medication List Home Medication List Reviewed: Yes Physical Exam-Cardiology Physical Exam Vital Signs/I&O Vital Sign - Last 12Hours 12/06/17 12/07/17 12/07/17 22:34 00:35 04:45 Temp 97.4 97.7 Pulse 80 84 78 Resp 20 20 B/P (MAP) 169/75 (106) 172/77 (108) 174/71 (105) Pulse Ox 95 96 O2 Delivery Room Air Room Air Intake and Output 12/07/17 00:00 Intake Total 1635 ml Balance 1635 ml Capillary Refill : Less Than 3 Seconds Constitutional: AAO x 3, well-developed, well-nourished HEENT: EOMI, No xanthelasmas are seen Neck: No carotid bruit, carotid pulses are 2 + bilaterally, with good upstrokes Respiratory: lungs clear to percussion, lungs clear to auscultation Cardiovascular: regular rate-rhythm, S1 and S2, systolic murmur (faint DIMITRIOS at cardiac base) Gastrointestinal: No tender, soft, No guarding, No rebound, audible bowel sounds Extremities: No clubbing, No cyanosis, No significant edema Neurologic/Psychiatric: oriented x 3, grossly intact, power is 5/5 both on sides Skin: No rash, ulcerations (small ulcer on plantar aspect of R great toe) Data Review Labs Laboratory Tests 12/06/17 16:04: Glucometer 305H 3/25/18 20:04: Glucometer 265H 12/07/17 05:33: Glucometer 332H Microbiology 12/05/17 MRSA Screen - Final, Complete MRSA not isolated 12/04/17 Urine Culture - Final, Complete Enterococcus faecalis A/P-Cardiology Assessment/Admission Diagnosis Malignant hypertension, associated with encephalopathy MRA of head and neck on 12/05/17: no significant abnormality reported Normal TSH on 12/04/17 (0.96) PAD. Peripheral angio of May 2016:Bilateral ostial/proximal anterior tibial artery occlusions with reconstitution of the dorsalis pedis via collaterals. 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
[2017-12-07] MEDS: inSUlin DETERMIR 1 UNIT/0.01 ML (LEVEMIR) CHARGE PER UNIT SQ SCH (10:02)
--- NOTE | 2017-12-07 11:44 | Physical Therapy Daily Note ---
PT Daily Note-Current Subjective Patient has no c/o dizziness and agrees to PT. She donns right diabetic shoe independently. Pain Numeric Pain Scale: 0-No Pain Location: No Pain Reported Mental Status Patient Orientation: Normal For Age Transfers Functional [place] Measure 0=Not Assessed/NA 4=Minimal Assistance 1=Total Assistance 5=Supervision or Setup 2=Maximal Assistance 6=Modified [place] 3=Moderate Assistance 7=Complete IndependenceIRFPAI Quality Coding Scale 6 Independent with activity with or without an assistive device 5 Patient requires set up or clean up by helper. Patient completes activity by themselves 4 Supervision or touching assist (CGA). [place] provide cues , steadying assist 3 The helper provides less than half the effort to complete the activity 2 The helper provides more than half the effort to complete the activity 1 Dependent. The helper does all the effort to complete an activity 7 Patient refused to complete or attempt activity 9 The patient did not perform the activity before the current illness or injury 88 Not attempted due to Medical conditions or safety concerns Transfers (B, C, W/C) (FIM): 7 Scootin Sit to/from Stand: 7 Weight Bearing Full Weight Bearing Full Weight Bearing Gait Training Gait (FIM): 7 Distance (FIM): 3=150 ft Distance: 300' Gait Level of Assist: 7 Gait Assistive Device: None safe and functional with Good balance Assessment PT to dismiss patient from services due to independent gross motor skills. PT Ton Container Shipper Goals Long-Term Goals PT Ton Container Shipper Goals Time Frame: Dec 12, 2017 Transfers (B,C,W/C) (FIM): 7 Gait (FIM): 6 Gait distance (FIM): 3=150 ft Distance: 200 ft Gait Level of Assist: 6 Gait Assistive Device: None PT Plan Treatment/Plan Treatment Plan: Discontinue PT, goals met Treatment Plan: Bed Mobility, Education, Functional Activity Key, Functional Strength, Gait, Safety, Therapeutic Exercise, Transfers Treatment Duration: Dec 12, 2017 Frequency: 6 times per week Estimated Hrs Per Day: .5 hour per day Patient and/or Family Agrees t: Yes Time/GCodes Time In: 1031 Time Out: 1039 Total Billed Treatment Time: 8 Total Billed Treatment 1 visit FA 8 min ALAN RAMOS PT Dec 07, 2017 11:44
[2017-12-08] VITALS: BP 167/78
[2017-12-08 04:00] VITALS: BP 140/65
[2017-12-08] MEDS: inSUlin ASPART (NovoLOG) 1 UNIT/0.01 ML (CHARGE PER UNIT) SC SCH ×2 (06:21→11:52)
[2017-12-08] MEDS: PANTOPRAZOLE 20 MG TABLET (PROTONIX) PO SCH (06:21)
[2017-12-08] MEDS: GLIMEPIRIDE 4 MG (AMARYL) TAB PO SCH (06:22)
[2017-12-08 06:25] LABS: MEAN PLATELET VOLUME 10.1 FL (7.4-10.4); RED BLOOD COUNT 4.35 10^6/uL (4.35-5.85); RED CELL DISTRIBUTION WIDTH 14.4 % (10.0-14.5); WHITE BLOOD COUNT 9.1 10^3/uL (4.3-11.0)
[2017-12-08 06:58] LABS: ALANINE AMINOTRANSFERASE 50 U/L (0-55); ALBUMIN 3.7 GM/DL (3.2-4.5); ALKALINE PHOSPHATASE 67 U/L (40-136); BILIRUBIN,TOTAL 0.3 MG/DL (0.1-1.0); BUN/CREATININE RATIO 23; CALCIUM 9.1 MG/DL (8.5-10.1); CARBON DIOXIDE 24 MMOL/L (21-32); CHLORIDE 102 MMOL/L (98-107); CHOLESTEROL 179 MG/DL (< 200); CREATININE SERUM 0.77 MG/DL (0.60-1.30); GFR ESTIMATED > 60; GLUCOSE 373 MG/DL (70-105); HDL CHOLESTEROL 37 MG/DL (40-60); MAGNESIUM 2.2 MG/DL (1.8-2.4); POTASSIUM 4.1 MMOL/L (3.6-5.0); SODIUM 135 MMOL/L (135-145); TOTAL PROTEIN 6.5 GM/DL (6.4-8.2); TRIGLYCERIDES 121 MG/DL (<150); VLDL CHOLESTEROL 24 MG/DL (5-40)
[2017-12-08 08:00] VITALS: BP 194/76
--- NOTE | 2017-12-08 08:08 | Progress Note (SOAP) ---
Subjective Time Seen by Provider: 08:05 Subjective/Events-last exam Patient anxious. Patient did not sleep last night. Blood pressure elevated. Objective Exam Vital Signs Date Time Temp Pulse Resp B/P (MAP) Pulse Ox O2 Delivery O2 Flow Rate FiO2 12/08/17 04:00 98.2 67 18 140/65 (90) 95 Room Air 12/08/17 00:00 98.5 70 18 167/78 (107) 93 Room Air 12/07/17 21:24 68 150/70 (96) 12/07/17 21:00 Room Air 12/07/17 19:53 Room Air 12/07/17 19:37 98.3 74 16 145/67 (93) 96 Room Air 12/07/17 16:08 98.6 65 16 145/67 (93) 96 Room Air 12/07/17 12:00 98.3 72 20 145/64 (91) 94 Room Air 12/07/17 09:00 Room Air I & O 12/08/17 07:00 Intake Total 3602 ml Balance 3602 ml Capillary Refill : Less Than 3 Seconds General Appearance: No Apparent Distress, WD/WN HEENT: Normal ENT Inspection Neck: Full Range of Motion Respiratory: Chest Non Tender, No Accessory Muscle Use, No Respiratory Distress Cardiovascular: Regular Rate, Rhythm, No Murmur Gastrointestinal: non tender, soft Results Lab Laboratory Tests 12/08/17 05:30 Laboratory Tests 12/07/17 11:33: Glucometer 264H 12/07/17 16:10: Glucometer 336H 12/07/17 20:32: Glucometer 258H 12/08/17 05:30: White Blood Count 9.1, Red Blood Count 4.35, Hemoglobin 12.0, Hematocrit 37, Mean Corpuscular Volume 85, Mean Corpuscular Hemoglobin 28, Mean Corpuscular Hemoglobin Concent 32, Red Cell Distribution Width 14.4, Platelet Count 226, Mean Platelet Volume 10.1, Sodium Level 135, Potassium Level 4.1, Chloride Level 102, Carbon Dioxide Level 24, Anion Gap 9, Blood Urea Nitrogen 18, Creatinine 0.77, Estimat Glomerular Filtration Rate > 60, BUN/Creatinine Ratio 23, Glucose Level 373H, Calcium Level 9.1, Magnesium Level 2.2, Total Bilirubin 0.3, Aspartate Amino Transf (AST/SGOT) 26, Alanine Aminotransferase (ALT/SGPT) 50, Alkaline Phosphatase 67, Total Protein 6.5, Albumin 3.7, Triglycerides Level 121, Cholesterol Level 179, LDL Cholesterol Direct 117, VLDL Cholesterol 24, HDL Cholesterol 37L 12/08/17 05:33: Glucometer 346H Microbiology 12/05/17 MRSA Screen - Final, Complete MRSA not isolated 12/04/17 Urine Culture - Final, Complete Enterococcus faecalis Assessment/Plan Assessment/Plan Assess & Plan/Chief Complaint hypertension emergency. Dizziness. abdominal discomfort. Diabetes. Right diabetic foot ulcer. UTI. Headache. Uses walker to get around.. 12/08/17. Hypertensive emergency. Dizziness. Diabetes. Right diabetic foot ulcer. UTI. Headache. Patient anxious Clinical Quality Measures DVT/VTE Risk/Contraindication: Risk Factor Score Per Nursin RFS Level Per Nursing on Admit: 3=High TAYO SUTTON DO Dec 08, 2017 08:08
[2017-12-08] MEDS ORDERED: metFORMIN XR 500 MG (GLUCOPHAGE XR) TAB PO ONE (08:13)
[2017-12-08] MEDS ORDERED: metFORMIN XR 500 MG (GLUCOPHAGE XR) TAB PO SCH ×2 (08:15)
[2017-12-08] MEDS: GABAPENTIN 300 MG (NEURONTIN) CAP PO SCH ×2 (08:17→11:54)
[2017-12-08] MEDS: ENALAPRIL 10 MG (VASOTEC) TAB PO SCH (08:18)
[2017-12-08] MEDS: hydrALAZINE (APRESOLINE) 25 MG TAB PO SCH (08:18)
[2017-12-08] MEDS: NITROFURANTOIN 100 MG (MACROBID) CAPSULE PO SCH (08:18)
[2017-12-08] MEDS: ASPIRIN 81 MG CHEW (CHILDREN'S ASA) PO SCH (08:18)
[2017-12-08] MEDS: inSUlin DETERMIR 1 UNIT/0.01 ML (LEVEMIR) CHARGE PER UNIT SQ SCH (08:18)
[2017-12-08] MEDS ORDERED: meTOprolol SUCCINATE 100 MG (TOPROL XL) TAB PO SCH (09:00)
[2017-12-08] MEDS ORDERED: amLODIPine 10 MG (NORVASC) TAB PO SCH (09:00)
[2017-12-08 09:58] VITALS: BP 186/80
--- NOTE | 2017-12-08 10:01 | Progress Note-Cardiology ---
Cardiology SOAP Progress Note Subjective: Sitting up on the side of the bed. Wants to go home. No c/o CP or palpitations. C/O some continued dyspnea. Objective: I&O/Vital Signs Vital Sign - Last 12Hours 12/08/17 12/08/17 12/08/17 04:00 08:00 09:58 Temp 98.2 Pulse 67 66 Resp 18 B/P (MAP) 140/65 (90) 186/80 (115) Pulse Ox 95 O2 Delivery Room Air Room Air Intake and Output 12/08/17 00:00 Intake Total 2902 ml Balance 2902 ml Weight (Pounds): 191 Weight (Ounces): 9.6 Weight (Calculated Kilograms): 86.311381 Constitutional: AAO x 3, well-developed, well-nourished Respiratory: lungs clear to percussion, lungs clear to auscultation Cardiovascular: regular rate-rhythm, S1 and S2, systolic murmur Gastrointestional: soft, audible bowel sounds Extremities: No clubbing, No cyanosis, No significant edema Neurologic/Psychiatric: oriented x 3, grossly intact, power is 5/5 both on sides Skin: ulcerations Results/Procedures: Labs Laboratory Tests 12/07/17 16:10: Glucometer 336H 12/07/17 20:32: Glucometer 258H 12/08/17 05:30: White Blood Count 9.1, Red Blood Count 4.35, Hemoglobin 12.0, Hematocrit 37, Mean Corpuscular Volume 85, Mean Corpuscular Hemoglobin 28, Mean Corpuscular Hemoglobin Concent 32, Red Cell Distribution Width 14.4, Platelet Count 226, Mean Platelet Volume 10.1, Sodium Level 135, Potassium Level 4.1, Chloride Level 102, Carbon Dioxide Level 24, Anion Gap 9, Blood Urea Nitrogen 18, Creatinine 0.77, Estimat Glomerular Filtration Rate > 60, BUN/Creatinine Ratio 23, Glucose Level 373H, Calcium Level 9.1, Magnesium Level 2.2, Total Bilirubin 0.3, Aspartate Amino Transf (AST/SGOT) 26, Alanine Aminotransferase (ALT/SGPT) 50, Alkaline Phosphatase 67, Total Protein 6.5, Albumin 3.7, Triglycerides Level 121, Cholesterol Level 179, LDL Cholesterol Direct 117, VLDL Cholesterol 24, HDL Cholesterol 37L 3/27/18 05:33: Glucometer 346H 12/08/17 11:08: Glucometer 325H Microbiology 12/05/17 MRSA Screen - Final, Complete MRSA not isolated 12/04/17 Urine Culture - Final, Complete Enterococcus faecalis Laboratory Tests 12/08/17 05:30 A/P: Assessment: Malignant hypertension, associated with encephalopathy MRA of head and neck on 12/05/17: no significant abnormality reported Normal TSH on 12/04/17 (0.96) PAD. Peripheral angio of May 2016:Bilateral ostial/proximal anterior tibial artery occlusions with reconstitution of the dorsalis pedis via collaterals. 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 Quit smoking in the 1989 Elevated BMI of approx 33 Plan: * Amlodipine increased yesterday * BB added yesterday * BP somewhat improved, but not ideal * Adjust medications * Monitor labs * Echo to eval symptoms of shortness of breath - pending * had a detailed discussion with her and outlined her CV issues and our management plan, and answered her questions Physician Assessment Physician Assessment Denies cp or palp or syncope or shortness of breath or balance problems Lungs: clear Cor: reg Ext: no c/c/e A&R * As documented in our note above that I updated at the time of this writing ( italics) and as noted below * Increase hydralazine. Continue bb and amlodipine * Close outpt f/u for now * I spoke with her and discussed her CV issues, our treatment plan, risk factor mod, and results of echo DUANE CAMPBELL Dec 08, 2017 10:01 DEBORA CARO MD FACP [facility] Dec 08, 2017 13:44
[2017-12-08 12:00] VITALS: BP 184/77
[2017-12-08] MEDS ORDERED: hydrALAZINE (APRESOLINE) 25 MG TAB PO SCH (13:00)
[2017-12-08] MEDS ORDERED: HYDR-3923 PO (14:02)
[2017-12-08] MEDS ORDERED: AMLO10TA2 PO (14:02)
[2017-12-08] MEDS ORDERED: METO-395 PO (14:02)
[2017-12-08] MEDS ORDERED: AMOX500T2 PO (14:03)
--- NOTE | 2017-12-09 08:39 | Discharge Summary ---
Diagnosis/Chief Complaint Date of Admission Dec 04, 2017 at 23:15 Date of Discharge Dec 08, 2017 at 14:30 Discharge Diagnosis Malignant hypertension. Peripheral artery disease. Diabetes. Diabetic ulcer right great toe. Diabetic neuropathy. Hypertensive encephalopathy. UTI Discharge Summary Consultations Etiology Discharge Physical Examination Allergies: Coded Allergies: No Known Drug Allergies (Unverified , 01/19/11) Vitals & I&Os Vital Signs Date Time Temp Pulse Resp B/P (MAP) Pulse Ox O2 Delivery O2 Flow Rate FiO2 12/08/17 14:30 12/08/17 12:00 97.6 70 20 97 Room Air Hospital Course Patient feeling better and wants to go home Labs (last 24 hrs) Laboratory Tests 12/04/17 19:45: White Blood Count 7.5, Red Blood Count 4.37, Hemoglobin 12.1, Hematocrit 37, Mean Corpuscular Volume 86, Mean Corpuscular Hemoglobin 28, Mean Corpuscular Hemoglobin Concent 32, Red Cell Distribution Width 14.3, Platelet Count 212, Mean Platelet Volume 9.4, Neutrophils (%) (Auto) 64, Lymphocytes (%) (Auto) 25, Monocytes (%) (Auto) 9, Eosinophils (%) (Auto) 3, Basophils (%) (Auto) 0, Neutrophils # (Auto) 4.8, Lymphocytes # (Auto) 1.8, Monocytes # (Auto) 0.7, Eosinophils # (Auto) 0.2, Basophils # (Auto) 0.0, Prothrombin Time 12.9, INR Comment 1.0, Activated Partial Thromboplast Time 27, D-Dimer < 0.27, Sodium Level 137, Potassium Level 4.2, Chloride Level 101, Carbon Dioxide Level 25, Anion Gap 11, Blood Urea Nitrogen 16, Creatinine 0.76, Estimat Glomerular Filtration Rate > 60, BUN/Creatinine Ratio 21, Glucose Level 291H, Calcium Level 9.2, Total Bilirubin 0.3, Aspartate Amino Transf (AST/SGOT) 27, Alanine Aminotransferase (ALT/SGPT) 49, Alkaline Phosphatase 73, Troponin I < 0.30, Total Protein 7.1, Albumin 4.1, TSH [place] Testing 0.96 12/04/17 20:15: Urine Color YELLOW, Urine Clarity CLEAR, Urine pH 6.5, Urine Specific Lester 1.015L, Urine Protein 1+H, Urine Glucose (UA) 4+H, Urine Ketones 2+H, Urine Nitrite NEGATIVE, Urine Bilirubin NEGATIVE, Urine Urobilinogen NORMAL, Urine Leukocyte Esterase 1+H, Urine RBC (Auto) 1+H, Urine RBC 10-25H, Urine WBC 10-25H , Urine Squamous Epithelial Cells 2-5, Urine Crystals NONE, Urine Bacteria MODERATEH, Urine Casts NONE, Urine Mucus NEGATIVE, Urine Culture Indicated YES 12/05/17 11:18: Glucometer 232H 12/05/17 21:19: Glucometer 333H 12/06/17 16:04: Glucometer 305H 12/06/17 20:04: Glucometer 265H 12/07/17 05:33: Glucometer 332H 12/07/17 11:33: Glucometer 264H 12/07/17 16:10: Glucometer 336H 12/07/17 20:32: Glucometer 258H 12/08/17 05:30: White Blood Count 9.1, Red Blood Count 4.35, Hemoglobin 12.0, Hematocrit 37, Mean Corpuscular Volume 85, Mean Corpuscular Hemoglobin 28, Mean Corpuscular Hemoglobin Concent 32, Red Cell Distribution Width 14.4, Platelet Count 226, Mean Platelet Volume 10.1, Sodium Level 135, Potassium Level 4.1, Chloride Level 102, Carbon Dioxide Level 24, Anion Gap 9, Blood Urea Nitrogen 18, Creatinine 0.77, Estimat Glomerular Filtration Rate > 60, BUN/Creatinine Ratio 23, Glucose Level 373H, Mean Blood Glucose 237H, Hemoglobin A1c 9.9H, Calcium Level 9.1, Magnesium Level 2.2, Total Bilirubin 0.3, Aspartate Amino Transf (AST /SGOT) 26, Alanine Aminotransferase (ALT/SGPT) 50, Alkaline Phosphatase 67, Total Protein 6.5, Albumin 3.7, Triglycerides Level 121, Cholesterol Level 179, LDL Cholesterol Direct 117, VLDL Cholesterol 24, HDL Cholesterol 37L 12/08/17 05:33: Glucometer 346H 12/08/17 11:08: Glucometer 325H Microbiology 12/05/17 MRSA Screen - Final, Complete MRSA not isolated 12/04/17 Urine Culture - Final, Complete Enterococcus faecalis Laboratory Tests 12/04/17 19:45 12/08/17 05:30 Pending Labs Microbiology Date/Time Source Procedure Growth Status 12/05/17 00:55 Nasal MRSA Screen - Final MRSA not isolated Complete 12/04/17 20:15 Urine Clean Catch Urine Culture - Final Enterococcus faecalis Complete Laboratory Tests 12/04/17 19:45: White Blood Count 7.5, Red Blood Count 4.37, Hemoglobin 12.1, Hematocrit 37, Mean Corpuscular Volume 86, Mean Corpuscular Hemoglobin 28, Mean Corpuscular Hemoglobin Concent 32, Red Cell Distribution Width 14.3, Platelet Count 212, Mean Platelet Volume 9.4, Neutrophils (%) (Auto) 64, Lymphocytes (%) (Auto) 25, Monocytes (%) (Auto) 9, Eosinophils (%) (Auto) 3, Basophils (%) (Auto) 0, Neutrophils # (Auto) 4.8, Lymphocytes # (Auto) 1.8, Monocytes # (Auto) 0.7, Eosinophils # (Auto) 0.2, Basophils # (Auto) 0.0, Prothrombin Time 12.9, INR Comment 1.0, Activated Partial Thromboplast Time 27, D-Dimer < 0.27, Sodium Level 137, Potassium Level 4.2, Chloride Level 101, Carbon Dioxide Level 25, Anion Gap 11, Blood Urea Nitrogen 16, Creatinine 0.76, Estimat Glomerular Filtration Rate > 60, BUN/Creatinine Ratio 21, Glucose Level 291, Calcium Level 9.2, Total Bilirubin 0.3, Aspartate Amino Transf (AST/SGOT) 27, Alanine Aminotransferase (ALT/SGPT) 49, Alkaline Phosphatase 73, Troponin I < 0.30, Total Protein 7.1, Albumin 4.1, TSH [place] Testing 0.96 12/04/17 20:15: Urine Color YELLOW, Urine Clarity CLEAR, Urine pH 6.5, Urine Specific Lester 1.015, Urine Protein 1+, Urine Glucose (UA) 4+, Urine Ketones 2+, Urine Nitrite NEGATIVE, Urine Bilirubin NEGATIVE, Urine Urobilinogen NORMAL, Urine Leukocyte Esterase 1+, Urine RBC (Auto) 1+, Urine RBC 10-25, Urine WBC 10-25, Urine Squamous Epithelial Cells 2-5, Urine Crystals NONE, Urine Bacteria MODERATE, Urine Casts NONE, Urine Mucus NEGATIVE, Urine Culture Indicated YES 12/05/17 11:18: Glucometer 232 12/05/17 21:19: Glucometer 333 12/06/17 16:04: Glucometer 305 12/06/17 20:04: Glucometer 265 12/07/17 05:33: Glucometer 332 12/07/17 11:33: Glucometer 264 12/07/17 16:10: Glucometer 336 12/07/17 20:32: Glucometer 258 12/08/17 05:30: White Blood Count 9.1, Red Blood Count 4.35, Hemoglobin 12.0, Hematocrit 37, Mean Corpuscular Volume 85, Mean Corpuscular Hemoglobin 28, Mean Corpuscular Hemoglobin Concent 32, Red Cell Distribution Width 14.4, Platelet Count 226, Mean Platelet Volume 10.1, Sodium Level 135, Potassium Level 4.1, Chloride Level 102, Carbon Dioxide Level 24, Anion Gap 9, Blood Urea Nitrogen 18, Creatinine 0.77, Estimat Glomerular Filtration Rate > 60, BUN/Creatinine Ratio 23, Glucose Level 373, Mean Blood Glucose 237, Hemoglobin A1c 9.9, Calcium Level 9.1, Magnesium Level 2.2, Total Bilirubin 0.3, Aspartate Amino Transf (AST /SGOT) 26, Alanine Aminotransferase (ALT/SGPT) 50, Alkaline Phosphatase 67, Total Protein 6.5, Albumin 3.7, Triglycerides Level 121, Cholesterol Level 179, LDL Cholesterol Direct 117, VLDL Cholesterol 24, HDL Cholesterol 37 12/08/17 05:33: Glucometer 346 12/08/17 11:08: Glucometer 325 Discharge Home Medications: Active Scripts Active Amoxicillin 500 Mg Tablet 500 Mg PO TID Metoprolol Succinate 100 Mg Tab.er.24h 200 Mg PO DAILY 30 Days Amlodipine Besylate 10 Mg Tablet 10 Mg PO DAILY 30 Days Hydralazine HCl 25 Mg Tablet 50 Mg PO TID 30 Days Reported Omeprazole 20 Mg Capsule.dr 20 Mg PO DAILY Enalapril Maleate 20 Mg Tablet 20 Mg PO BID Aspirin EC (Aspirin) 81 Mg Tablet.dr 81 Mg PO DAILY Glimepiride 4 Mg Tablet 8 Mg PO DAILY TAKES 2 (4 MG) TABLETS Tresiba Flextouch U-100 (Insulin Degludec) 100 Unit/1 Ml Insuln.pen 17 Unit SQ DAILY Gabapentin 300 Mg Capsule 900 Mg PO TID TAKES 3 (300 MG) CAPSULES Metformin HCl ER (Metformin HCl) 500 Mg Tab.er.24 1,000 Mg PO BID TAKES 2 (500 MG) TABLETS Tramadol HCl 50 Mg Tablet 50 Mg PO TID Instructions to patient/family Please see electronic discharge instructions given to patient. Clinical Quality Measures DVT/VTE Risk/Contraindication: Risk Factor Score Per Nursin RFS Level Per Nursing on Admit: 3=High TAYO SUTTON DO Dec 09, 2017 08:39
== END 2017-12-08 14:30 | disposition home or self-care (01) | DRG 78 ==
LOC: EDUNIT# 19:21 → ER 19:22 → ICU 23:15 → 4TH 12-05 14:47
PROVIDERS: ADMIT Internal Medicine; ATTEND Internal Medicine
DX: I67.4 Hypertensive encephalopathy (principal); N39.0 Urinary tract infection, site not specified; I73.9 Peripheral vascular disease, unspecified; E11.621 Type 2 diabetes mellitus with foot ulcer; L97.519 Non-pressure chronic ulcer of other part of right foot with unspecified severity; E11.40 Type 2 diabetes mellitus with diabetic neuropathy, unspecified; Z87.891 Personal history of nicotine dependence; I34.0 Nonrheumatic mitral (valve) insufficiency; M79.7 Fibromyalgia; Z79.84 Long term (current) use of oral hypoglycemic drugs
CPT/HCPCS: 36415; 70450; 70496; 70498; 70544; 70548; 71045; 80053; 80061; 81000; 82962; 83036; 83735; 84443; 84484; 85025; 85027; 85379; 85610; 85730; 87081; 87088; 87186; 93005; 93041; 93306; 96365; 96375; 96376

== ENCOUNTER 2018-02-04 10:29 | Outpatient (CLI) | payer OTHER ==
[~2018-02-04] VITALS: Ht 166.4 cm; Wt 89.4 kg
[~2018-02-04 10:29] MED LIST changes: +AMLO10TA2 PO; +AMOX500T2 PO; +ASPI-983 PO; +GLIM4TAB PO; +HYDR-3923 PO; +INSU100I32 SQ; -METF500T4 PO; +METF500T5 PO; +METO-395 PO; +OMEP20CA12 PO; +OMEP20TA33 PO
[2018-02-04 10:38] VITALS: BP 171/68
[2018-02-04] MEDS ORDERED: METO200T48 PO (15:21)
[2018-02-04] MEDS ORDERED: HYDR-3924 PO (15:21)
== END 2018-02-04 10:50 | disposition home or self-care (01) ==
LOC: PREOP 10:29
PROVIDERS: ATTEND Podiatrist Foot & Ankle Surgery
DX: Z01.818 Encounter for other preprocedural examination (principal); L97.519 Non-pressure chronic ulcer of other part of right foot with unspecified severity
CPT/HCPCS: 87081

== ENCOUNTER 2018-02-12 11:16 | Day surgery (SDC) | payer OTHER ==
--- NOTE | 2018-02-03 13:16 | HISTORY AND PHYSICAL ---
DATE OF SERVICE: DATE OF ADMISSION: 02/12/2018 The patient to have outpatient surgery by Dr. Sarmiento. CHIEF COMPLAINT: Foot surgery for chronic ulceration of right hallux and have of the right hallux. ALLERGIC TO MEDICATIONS: Denies. MEDICATIONS: 1. Amlodipine 10 mg, out of it now. 2. Hydralazine 25. 3. Metoprolol 200 mg. 4. Enteric-coated aspirin 81. 5. Enalapril 20 mg. 6. Gabapentin 300 mg t.i.d. 7. Glimepiride 4 mg b.i.d. 8. Tarceva 24 units. 9. Metformin 500 mg. 10. Omeprazole 20 mg. SURGERY: 1. Right leg open vein. 2. Tubal ligation, did not work, seven years later had a son. FAMILY HISTORY: Grandson asthma, diabetes in family, father lung cancer. REVIEW OF SYSTEMS: HEAD: Denies headache, dizziness, fainting. EYES, EARS, NOSE AND THROAT: Denies diplopia, tinnitus, sore throat. HEART: Denies heart murmur, chest pain, shortness of breath. LUNGS: Denies asthma, TB, coughing. GASTROINTESTINAL: Appetite good. Denies blood in the stools, diarrhea, constipation, ulcer, or vomiting. GENITOURINARY: Denies pain, blood or frequency. PHYSICAL EXAMINATION: GENERAL: The patient is white female, well nourished, well developed, in no acute respiratory distress at rest. VITAL SIGNS: Weight 197, blood pressure 140/70, pulse 76. EARS: No discharge. EYES: No conjunctivitis or icterus. Throat not inflamed. NECK: Thyroid not enlarged. No abnormal cervical lymphadenopathy noted. HEART: Regular rate and rhythm. LUNGS: Clear to auscultation. ABDOMEN: Soft. Liver and spleen nonpalpable. EXTREMITIES: No pretibial edema. Legs are warm. The patient is okay to have surgery. We will be on standby if she has any problems. Job ID: [id number] DocumentID: [id number] Dictated Date: 02/03/2018 11:19:35 [employer]olition Engineer Date: 02/03/2018 12:42:48 Dictated By: TAYO SUTTON DO
[~2018-02-12] VITALS: Ht 166.4 cm; Wt 89.4 kg
[~2018-02-12 11:16] MED LIST changes: +HYDR-3924 PO; +METO200T48 PO
[2018-02-12] MEDS ORDERED: LACTATED RINGERS 1,000 ML IV PRN (11:19)
[2018-02-12] MEDS ORDERED: ceFAZolin INJECTION 1,000 MG in NS (IVPB) 50 ML IV ONE (11:30)
[2018-02-12] MEDS ORDERED: BUPIVACAINE 0.5% 30 ML (SENSORCAINE) VIAL ONE (11:31)
[2018-02-12 12:29] VITALS: BP 173/70
[2018-02-12] MEDS ORDERED: ONDANSETRON 4 MG/2 ML (SDV) Z0FRAN ONE (12:30)
[2018-02-12] MEDS ORDERED: MIDAZOLAM 2 MG/2 ML (VERSED) VIAL ONE (12:30)
[2018-02-12] MEDS ORDERED: proPOfol 200 MG/20 ML (DIPRIVAN) VIAL IV ONE (12:30)
[2018-02-12] MEDS ORDERED: fentaNYL INJECTION 100 MCG/2 ML AMP ONE (12:30)
[2018-02-12] MEDS ORDERED: LIDOCAINE PF 2% 5 ML (XYLOCAINE) VIAL ONE ×2 (12:30→13:21)
--- NOTE | 2018-02-12 12:37 | Progress Note-Pre Operative ---
Pre-Operative Progress Note H&P Reviewed The H&P was reviewed, patient examined and no changes noted. Date Seen by Provider: Feb 12, 2018 Time Seen by Provider: 12:37 Date H&P Reviewed: Feb 12, 2018 Time H&P Reviewed: 12:37 Pre-Operative Diagnosis: Chronic ulceration of the right hallux MARIBEL KIRK DPM Feb 12, 2018 12:37 pm
[2018-02-12] MEDS ORDERED: PROPOFOL INJECTION 50 ML IV ONE (12:47)
[2018-02-12] MEDS ORDERED: LACTATED RINGERS 1,000 ML IV SCH (13:34)
--- NOTE | 2018-02-12 13:34 | Progress Note-Post Operative ---
Post-Operative Progess Note Surgeon (s)/Catering Staff Member (s) Surgeon MARIBEL KIRK DPM Catering Staff Member: none Pre-Operative Diagnosis Chronic ulceration of the right hallux Post-Operative Diagnosis Same, Hypertrophic head of the R1 proximal phalanx Procedure & Operative Findings Date of Procedure 02/12/18 Procedure Performed/Findings Arthroplasty of the right hallux interphalangeal joint Anesthesia Type MAC Estimated Blood Loss Estimated blood loss (mL): Minimal Specimens/Packing Specimens Removed Right hallux, head of the proximal phalanx MARIBEL KIRK DPM Feb 12, 2018 1:34 pm
[2018-02-12] MEDS ORDERED: CEPH500C PO (13:42)
[2018-02-12] MEDS ORDERED: ACHD5005 PO (13:42)
[2018-02-12] MEDS ORDERED: HYDROmorphone 1 MG/ML (DILAUDID) 1 ML SYRINGE IV PRN (13:45)
[2018-02-12] MEDS ORDERED: ONDANSETRON 4 MG/2 ML (SDV) Z0FRAN IVP PRN (13:45)
[2018-02-12] MEDS ORDERED: fentaNYL INJECTION 100 MCG/2 ML AMP IVP PRN (13:45)
[2018-02-12] MEDS ORDERED: HYDROcodone/APAP 5 MG/325 MG (LORTAB) TAB PO PRN (13:45)
--- NOTE | 2018-02-12 13:58 | Anesthesia-General Post-Op ---
MAC Patient Condition Mental Status/LOC: Same as Preop Cardiovascular: Satisfactory Nausea/Vomiting: Absent Respiratory: Satisfactory Pain: Controlled Complications: Absent Post Op Complications Complications None Follow Up Care/Instructions Patient Instructions None needed. Anesthesiology Discharge Order Discharge Order Patient is doing well, no complaints, stable vital signs, no apparent adverse anesthesia problems. No complications reported per nursing. RICARDO GARRISON CRNA Feb 12, 2018 13:58
[2018-02-12 14:10] VITALS: BP 142/71
[2018-02-12 14:40] VITALS: BP 161/77
[2018-02-12 14:50] VITALS: BP 161/77
--- NOTE | 2018-02-12 17:12 | Diagnostic Imaging Report ---
INDICATION: Postop right foot. COMPARISON: 08/08/2017. FINDINGS: There has been resection of the distal one-third of the proximal phalanx of the first digit. The distal phalanx appears normal. The remaining proximal phalanx appears normal. MP joint is normal. Second through fifth toes and metatarsals appear normal. IMPRESSION: Amputation distal third of the proximal phalanx first digit. Dictated by: Dictated on workstation # [id number]
--- NOTE | 2018-02-12 20:04 | OPERATIVE REPORT ---
DATE OF SERVICE: 02/12/2018 SURGEON: Tracey Kirk DPM. PREOPERATIVE DIAGNOSES: 1. Chronic ulceration, right hallux. 2. Hypertrophic head of the proximal phalanx, right hallux wound. POSTOPERATIVE DIAGNOSES: 1. Chronic ulceration, right hallux. 2. Hypertrophic head of the proximal phalanx, right hallux wound. PROCEDURE: Arthroplasty, right hallux. WOUND CLASS: Clean. ANESTHESIA: Monitored anesthesia care. HEMOSTASIS: Pneumatic thigh tourniquet at 250 mmHg. INDICATIONS: This 62-year-old female presents complaining of a chronic ulceration to the right hallux interphalangeal joint area. Conservative therapy has met with unsatisfactory results and the patient is agreeable to surgical intervention after risks and complications were discussed at length. The lesion to the right hallux is almost completely healed due to extensive amount of wound care over several months. The patient denies any fever, chills, nausea or vomiting with minimal exudate from the wound. She understands if she proceeds there is possibility of continued infection problems, need for further surgery or other complications and she is willing to proceed. DESCRIPTION OF PROCEDURE: The patient was brought back to the operative table, placed in secure supine position. Appropriate time out was performed. Anesthesia was achieved utilizing aseptic technique utilizing 10 mL of 0.5% Marcaine injected in a Mascorro block. She also should be noted that the postoperative block consisted of 4 mL of 0.5% Marcaine. A pneumatic thigh tourniquet was placed on the right lower extremity over several layers padding. The right foot was then prepped and draped in normal sterile manner. The right foot was then elevated and allowed to exsanguinate after which the tourniquet was inflated to 250 mmHg. Attention was then directed to the dorsal aspect of the right hallux where a 2.5 cm longitudinal linear incision was created. The incision was deepened in the same plane with great care to identify and retract all vital neurovascular structures. All the necessary blood vessels were cauterized as encountered. The incision was deepened down to the extensor tendon where a transverse tenotomy was performed. Next, the medial and lateral collateral ligaments associated with the interphalangeal joint were released. This exposed the hypertrophic head of the proximal phalanx which was resected utilizing a power sagittal saw. The specimen was sent for gross and microscopic evaluation. The wound was flushed with copious amounts of normal saline. No other abnormalities were identified at this time. The wound was flushed once again and closure was performed in layers. Deep closure was performed with 3-0 Vicryl, superficial with 4-0 Vicryl and skin closure with 4-0 Prolene in a horizontal mattress type stitch. There is a hypertrophic lesion to the plantar aspect of the base of the distal phalanx, right hallux with no active exudate. Bacitracin and Adaptic were then placed over this area. Postoperative dressing also consisted of Betadine-soaked Adaptic to the dorsal aspect of the hallux, sterile 4 x 4, sterile Kerlix all secured with a Coban wrap. The patient tolerated the anesthesia and procedure well and was transported from the operating room to the recovery area with vital signs stable and vascular status intact to all digits of the right foot. The patient is to be partial weightbearing with crutches or walker on the right lower extremity. We will see her in the office in 5 days period of time or sooner if necessary. Job ID: [id number] DocumentID: [id number] Dictated Date: 02/12/2018 13:41:34 [employer] Date: 02/12/2018 20:03:29 Dictated By: TRACEY KIRK DPM
== END 2018-02-12 14:50 | disposition home or self-care (01) ==
LOC: SDC 11:16
PROVIDERS: ATTEND Podiatrist Foot & Ankle Surgery
DX: L97.519 Non-pressure chronic ulcer of other part of right foot with unspecified severity (principal); M89.371 Hypertrophy of bone, right ankle and foot; I10 Essential (primary) hypertension; I73.9 Peripheral vascular disease, unspecified; Z87.891 Personal history of nicotine dependence; E11.40 Type 2 diabetes mellitus with diabetic neuropathy, unspecified; M79.7 Fibromyalgia; K21.9 Gastro-esophageal reflux disease without esophagitis; E66.9 Obesity, unspecified; Z79.84 Long term (current) use of oral hypoglycemic drugs; Z79.899 Other long term (current) drug therapy; Z68.32 Body mass index [BMI] 32.0-32.9, adult
CPT/HCPCS: 73620; 82962; 88305; 88311

== ENCOUNTER 2018-03-23 07:14 | Day surgery (SDC) | payer OTHER ==
[~2018-03-23] VITALS: Ht 165.1 cm; Wt 90.3 kg
[2018-03-23] VITALS (12 sets, daily range): BP systolic 127–161; BP diastolic 57–93
[~2018-03-23 07:14] MED LIST changes: +CEPH500C PO
[2018-03-23] MEDS ORDERED: HEParin (CATH LAB) 2,000 ML IV ONE (07:22)
[2018-03-23] MEDS ORDERED: NS IV 1000 ML 1,000 ML ONE (07:22)
[2018-03-23] MEDS ORDERED: LIDOCAINE 1% INJ 20 ML 20 ML VIAL ONE (07:22)
[2018-03-23] MEDS: NS IV 1000 ML 1,000 ML IV SCH ×2 (07:38→17:33)
[2018-03-23] MEDS ORDERED: AMLO10TA4 PO (07:53)
[2018-03-23 08:01] LABS: HEMOGLOBIN 11.8 G/DL (11.5-16.0); RED BLOOD COUNT 4.29 10^6/uL (4.35-5.85); RED CELL DISTRIBUTION WIDTH 15.1 % (10.0-14.5); WHITE BLOOD COUNT 10.3 10^3/uL (4.3-11.0)
[2018-03-23 08:11] LABS: PROTHROMBIN TIME PATIENT 13.2 SEC (12.2-14.7)
[2018-03-23 08:20] LABS: ALANINE AMINOTRANSFERASE 45 U/L (0-55); ALKALINE PHOSPHATASE 59 U/L (40-136); BILIRUBIN,TOTAL 0.5 MG/DL (0.1-1.0); BUN/CREATININE RATIO 29; CALCIUM 9.7 MG/DL (8.5-10.1); CARBON DIOXIDE 25 MMOL/L (21-32); CHLORIDE 103 MMOL/L (98-107); CHOLESTEROL 175 MG/DL (< 200); CREATININE SERUM 0.77 MG/DL (0.60-1.30); GFR ESTIMATED > 60; GLUCOSE 240 MG/DL (70-105); HDL CHOLESTEROL 35 MG/DL (40-60); POTASSIUM 4.4 MMOL/L (3.6-5.0); SODIUM 138 MMOL/L (135-145); TOTAL PROTEIN 6.9 GM/DL (6.4-8.2); TRIGLYCERIDES 187 MG/DL (<150); VLDL CHOLESTEROL 37 MG/DL (5-40)
[2018-03-23] MEDS ORDERED: MIDAZOLAM 5 MG/5 ML (VERSED) VIAL ONE (08:23)
[2018-03-23] MEDS ORDERED: fentaNYL INJECTION 100 MCG/2 ML AMP ONE (08:23)
[2018-03-23] MEDS ORDERED: diphenhydrAMINE 50 MG/ML INJ (BENADRYL) ONE (08:23)
--- NOTE | 2018-03-23 08:48 | Cardiac Procedure Note-CS/ASA ---
Pre-Procedure Note Pre-Op Procedure Note H&P Reviewed The H&P was reviewed, patient examined and no changes noted. Date H&P Reviewed: Mar 23, 2018 Time H&P Reviewed: 08:48 Conscious Sedation Pre-Proced Time Reviewed: 08:48 ASA Class: 3 Airway Mallampati Classification: ([place]-apache appropriate class) I. II. III, IV Lungs Heart ASA score ASA 1: a normal healthy patient ASA 2: a patient with a mild systemic disease (mid diabetes, controlled hypertension, obesity ASA 3: a patient with a severe systemic disease that limits activity (angina , COPD, prior Myocardial infarction) ASA 4: a patient with an incapacitating disease that is a constant threat to life (CHF, renal failure) ASA 5: a moribund patient not expected to survive 24 hrs. (ruptured aneurysm) ASA 6: a declared brain patient whose organs are being harvested. For emergent operations, add the letter E after the classification Grade 2 Sedation Plan: Analgesia, Amnesia, Plan communicated to team members, Discussed options with patient/fam, Discussed risks with patient/fam Note The patient is an appropriate candidate to undergo the planned procedure, sedation, and anesthesia. The patient immediately re-assessed prior to indication. DEBORA CARO MD FACP FAC CCDS Mar 23, 2018 08:48
[2018-03-23] MEDS ORDERED: HEParin 1000 UNIT/ML (10ML VIAL) FOR BOLUS ONE (08:56)
[2018-03-23] MEDS ORDERED: EPTIFIBATIDE BOLUS 20 ML IV ONE (08:57)
[2018-03-23] MEDS ORDERED: NITRO DRIP 25000 MCG/D5W 250 ML IV ONE (09:08)
[2018-03-23] MEDS ORDERED: ASPIRIN 81 MG CHEW (CHILDREN'S ASA) ONE (09:49)
[2018-03-23] MEDS ORDERED: CLOPIDOGREL 300 MG (PLAVIX) TABLET PO ONE (09:49)
[2018-03-23] MEDS ORDERED: NS IV 1000 ML 1,000 ML IV SCH (09:53)
[2018-03-23] MEDS ORDERED: PATIENT MAY USE OWN MEDS, ALL PO SCH (10:00)
--- NOTE | 2018-03-23 12:12 | CARDIAC CATHETERIZATION ---
DATE OF SERVICE: 03/23/2018 CARDIAC CATHETERIZATION AND CORONARY INTERVENTION REPORT The patient is a 62-year-old lady, who has been having symptoms of crescendo angina. She has multiple coronary artery risk factors. Cardiac catheterization was carried out today after having obtained informed consent for cardiac catheterization and possible ad hoc coronary intervention. DESCRIPTION OF PROCEDURE: She was brought to the cardiac catheterization laboratory in a fasting state. Right groin was prepared and draped in the usual sterile fashion. Lidocaine 1% was used for local anesthesia. Modified Seldinger technique was used to advance a 5-Iraqi sheath into right femoral artery. Angiography of the right femoral artery was carried out through the sheath. A 5-Iraqi JL3.5 catheter was used for left coronary angiography. A 5-Iraqi JR4 catheter was used for right coronary angiography. A 5-Iraqi pigtail catheter was left heart catheterization, left ventricular angiography. PERCUTANEOUS INTERVENTION TO THE LEFT ANTERIOR DESCENDING ARTERY: Following completion of the diagnostic procedure, we carried out intervention to the proximal left anterior descending artery. We exchanged the sheath over a wire for 6-Iraqi sheath. We used a 6-Iraqi JL3.5 guide catheter. We gave 6000 units of intravenous heparin. A double bolus of Integrilin was given. A 6-Iraqi JL3.5 guide catheter was used to advance a choice floppy wire across the lesion in the proximal to mid left anterior descending artery. The tip of the wire was placed in the distal vessel. Balloon angioplasty was carried out with Emerge 2.0 x 20 mm balloon. Stenting was carried out with Alpine Xience 2.5 x 18 mm stent. Subsequent angiography revealed 0% residual stenosis at the previous site of 90% stenosis. Flow throughout the vessel was normal. The mid and then distal parts of the left anterior descending artery have multiple up to 50% lesions, which were not intervened on. PERCUTANEOUS INTERVENTION OF THE RIGHT CORONARY ARTERY: Following completion of the intervention to the left anterior descending artery, we carried out percutaneous intervention to the right coronary artery, which was exhibiting 90% mid vessel stenosis. We used a 6-Iraqi JR4 guide catheter with side holes. We advanced a choice floppy wire across the lesion and the tip was placed in the distal vessel. We carried out balloon angioplasty with Emerge 2.5 x 20 mm balloon. A small caliber right ventricular branch which arose from the site of the lesion within the right coronary artery was lost but it did not cause any hemodynamic instability or any symptoms. We distended the right coronary artery with an Alpine Xience 3.0 mm x 18 mm stent, which was deployed at 20 atmospheres. She tolerated the procedure well. Subsequent angiography showed 0% residual stenosis at the previous site of 90% stenosis in the right coronary artery. The angioplasty equipment was removed. Mynx was used to achieve hemostasis. HEMODYNAMICS: Left ventricular end-diastolic pressure following coronary angiography was 27 mmHg. There was no significant pressure gradient on pullback across the aortic valve. Ascending aortic pressure was 154/64 with a mean of 81 mmHg. CORONARY ANGIOGRAPHY: Left main coronary artery is free of significant disease. Left anterior descending artery had 90% proximal and mid vessel stenosis to which successful balloon angioplasty and stenting was carried out. Following deployment of Alpine Xience 2.5 x 18 mm stent, there is no significant residual stenosis. The mid and distal part of the left anterior descending artery had multiple up to 50% stenosis which were not intervened on. A ramus intermedius artery has 90% proximal stenosis that has not been intervened on. The left circumflex artery has 70% proximal stenosis and a 70% ostial stenosis and the first sizable obtuse marginal branch of the left circumflex artery. The right coronary artery is dominant with 90% mid vessel stenosis to which successful balloon angioplasty and stenting was carried out. Following deployment of Alpine Xience 3.0 x 18 mm stent, there is no significant residual stenosis. A small caliber right ventricular branch was lost during intervention to the right coronary artery. This vessel arose from the site of severe stenosis within the mid right coronary artery. CONCLUSIONS: 1. Multivessel coronary artery disease involving all coronary vessels. 2. Successful stenting of the proximal left anterior descending artery with Alpine Xience 2.5 x 18 mm stent with reduction of stenosis to 0% residual. 3. Successful stenting to the mid right coronary artery with Alpine Xience 3.0 x 18 mm stent with reduction of stenosis to 0% residual. 4. Remaining stenoses consist of a 90% proximal stenosis in the ramus intermedius, 70% proximal stenosis in the left circumflex, 70% stenosis in the first obtuse marginal branch of the left circumflex, and multiple 50% stenoses in the mid and distal portions of the left anterior descending, left circumflex and right coronary arteries. 5. Normal to hyperdynamic left ventricular systolic function with ejection fraction 70%. 6. No significant mitral regurgitation. DISCUSSION AND RECOMMENDATIONS: Plavix has been added to the regimen. Aspirin is being continued. Statin has been added to the regimen. Beta blockers are being continued. She is being hospitalized for overnight observation. She will probably require further intervention (ramus intermedius and, possibly, the left circumflex) at a later date. Today, our goal was to intervene on the most important and the most severe lesions (left anterior descending and the dominant right coronary artery). Job ID: [id number] DocumentID: [id number] Dictated Date: 03/23/2018 10:30:08 Certified Orthotic Fitter Date: 03/23/2018 12:12:33 Dictated By: DEBORA CARO MD, MA, FACP, FACC, MTDD
[2018-03-23] MEDS: HYDRALAZINE 50 MG PO SCH ×2 (13:28→20:39)
[2018-03-23] MEDS: GABAPENTIN 300 MG (NEURONTIN) CAP PO SCH ×2 (13:29→20:38)
--- NOTE | 2018-03-23 14:44 | Cardiology Discharge Summary ---
Diagnosis/Chief Complaint Date of Admission 03-23-18 Date of Discharge 03-24-18 Admission Diagnosis New-onset angina Malignant hypertension, associated with encephalopathy, in November 2017 MRA of head and neck on 12/05/17: no significant abnormality reported Normal TSH on 12/04/17 (0.96) PAD. Peripheral angio of May 2016:Bilateral ostial/proximal anterior tibial artery occlusions with reconstitution of the dorsalis pedis via collaterals. S/ p balloon angioplasty of the R ant tib by Dr Li at [facility] in May 2016 Echo on 12/07/17: LVEF 60-65%,mild MR, grade I diastolic dysfunction Chronic, recurrent diabetic ulcer of the R great toe, managed by Dr Torsten MURPHY with chronic diabetic neuropathy in glove and stocking distribution Quit smoking in the 1989 Elevated BMI of approx 33 Final/Discharge Diagnosis CAD. Card cath of 03/23/18 showed multivessel coronary artery disease involving all coronary vessels. Successful stenting of the proximal left anterior descending artery with Alpine Xience 2.5 x 18 mm stent with reduction of stenosis to 0% residual. Successful stenting to the mid right coronary artery with Alpine Xience 3.0 x 18 mm stent with reduction of stenosis to 0% residual. Remaining stenoses consist of a 90% proximal stenosis in the ramus intermedius , 70% proximal stenosis in the left circumflex, 70% stenosis in the first obtuse marginal branch of the left circumflex, and multiple 50% stenoses in the mid and distal portions of the left anterior descending, left circumflex and right coronary arteries. Normal to hyperdynamic left ventricular systolic function with ejection fraction 70%. No significant mitral regurgitation. Malignant hypertension, associated with encephalopathy, in November 2017 MRA of head and neck on 12/05/17: no significant abnormality reported Normal TSH on 12/04/17 (0.96) PAD. Peripheral angio of May 2016:Bilateral ostial/proximal anterior tibial artery occlusions with reconstitution of the dorsalis pedis via collaterals. S/ p balloon angioplasty of the R ant tib by Dr Li at [facility] in May 2016 Echo on 12/07/17: LVEF 60-65%,mild MR, grade I diastolic dysfunction Chronic, recurrent diabetic ulcer of the R great toe, managed by Dr Torsten MURPHY with chronic diabetic neuropathy in glove and stocking distribution Quit smoking in the 1989 Elevated BMI of approx 33 Chief Complaint/HPI Chief Complaint/HPI Ms. Ray was seen in our office earlier this week d/t c/o new onset chest pain ; description as follows: Location: Mid-sternal Onset: one month ago Duration: several minutes Frequency: several times a day Intensity: moderate Associated symptoms: SOB, nausea Exacerbating factors: exertion Alleviating factors: rest Characteristics: burning sensation Radiation:across chest and into right shoulder Therefore, based on her symptoms, risk factors and history of PAD we advised further work up with cardiac cath. Discharge Summary Procedures Cardiac cath with successful intervention. Please refer to Dr. Kohli's cardiac cath report of March 23, 2018 for details. Hospital Course Pending Labs Discussion & Recommendations Home Medications Reviewed patient Home Medication Reconciliation performed by pharmacy medication reconciliations diesel maintenance technician and/or nursing. Patients Allergies have been reviewed. Discharge Home Medications: New Medications: Aspirin (Aspirin) 81 Mg Tab.chew 81 MG PO DAILY, #120 TAB 5 Refills Atorvastatin Calcium (Lipitor) 40 Mg Tablet 80 MG PO HS, #30 TAB 5 Refills Clopidogrel Bisulfate (Clopidogrel) 75 Mg Tablet 75 MG PO DAILY, #30 TAB 5 Refills Pantoprazole Sodium (Pantoprazole Sodium) 20 Mg Tablet.dr 20 MG PO DAILY@0700, #30 TAB 5 Refills Continued Medications: Amlodipine Besylate (Norvasc) 10 Mg Tablet 10 MG PO DAILY, TAB Enalapril Maleate (Enalapril Maleate) 20 Mg Tablet 20 MG PO BID, TAB Gabapentin (Gabapentin) 300 Mg Capsule 900 MG PO TID, CAP TAKES 3 (300 MG) CAPSULES Glimepiride (Glimepiride) 4 Mg Tablet 8 MG PO DAILY, TAB TAKES 2 (4 MG) TABLETS Hydralazine HCl (Hydralazine HCl) 50 Mg Tablet 50 MG PO TID, TAB Insulin Degludec (Tresiba Flextouch U-100) 100 Unit/1 Ml Insuln.pen 26 UNIT SQ DAILY, EA Metformin HCl (Metformin HCl ER) 500 Mg Tab.er.24 1000 MG PO BID, TAB TAKES 2 (500 MG) TABLETS Metoprolol Succinate (Metoprolol Succinate) 200 Mg Tab.er.24h 200 MG PO DAILY, TAB Tramadol HCl (Tramadol HCl) 50 Mg Tablet 50 MG PO TID, TAB Discontinued Medications: Aspirin (Aspirin EC) 81 Mg Tablet.dr 81 MG PO DAILY, TAB Omeprazole (Omeprazole) 20 Mg Capsule. 20 MG PO DAILY, CAP New, Converted or Re-Newed RX: RX Given to Pt/Fam DUANE CAMPBELL Mar 23, 2018 14:44 DEBORA KOHLI MD FACP [facility] CCDS Mar 23, 2018 17:35
[2018-03-23] MEDS ORDERED: PANT20TA3 PO (14:47)
[2018-03-23] MEDS ORDERED: CLOP75TA28 PO (14:47)
[2018-03-23] MEDS ORDERED: ATOR40TA PO (14:47)
--- NOTE | 2018-03-23 14:48 | Discharge Inst-Cardiology ---
Discharge Inst-Cardiac Discharge Medications New Medications: Aspirin (Aspirin) 81 Mg Tab.chew 81 MG PO DAILY, #120 TAB 5 Refills Atorvastatin Calcium (Lipitor) 40 Mg Tablet 80 MG PO HS, #30 TAB 5 Refills Clopidogrel Bisulfate (Clopidogrel) 75 Mg Tablet 75 MG PO DAILY, #30 TAB 5 Refills Pantoprazole Sodium (Pantoprazole Sodium) 20 Mg Tablet.dr 20 MG PO DAILY@0700, #30 TAB 5 Refills Continued Medications: Amlodipine Besylate (Norvasc) 10 Mg Tablet 10 MG PO DAILY, TAB Enalapril Maleate (Enalapril Maleate) 20 Mg Tablet 20 MG PO BID, TAB Gabapentin (Gabapentin) 300 Mg Capsule 900 MG PO TID, CAP TAKES 3 (300 MG) CAPSULES Glimepiride (Glimepiride) 4 Mg Tablet 8 MG PO DAILY, TAB TAKES 2 (4 MG) TABLETS Hydralazine HCl (Hydralazine HCl) 50 Mg Tablet 50 MG PO TID, TAB Insulin Degludec (Tresiba Flextouch U-100) 100 Unit/1 Ml Insuln.pen 26 UNIT SQ DAILY, EA Metformin HCl (Metformin HCl ER) 500 Mg Tab.er.24 1000 MG PO BID, TAB TAKES 2 (500 MG) TABLETS Metoprolol Succinate (Metoprolol Succinate) 200 Mg Tab.er.24h 200 MG PO DAILY, TAB Tramadol HCl (Tramadol HCl) 50 Mg Tablet 50 MG PO TID, TAB Discontinued Medications: Aspirin (Aspirin EC) 81 Mg Tablet.dr 81 MG PO DAILY, TAB Omeprazole (Omeprazole) 20 Mg Capsule.dr 20 MG PO DAILY, CAP New, Converted or Re-Newed RX: RX Given to Pt/Family Patient Instructions Patient Instructions: Please schedule follow up appt with Dr. Kohli in one week DO NOT TAKE METFORMIN today or tomorrow. Please restart on Thursday, March 26, 2018. DUANE CAMPBELL Mar 23, 2018 14:48
[2018-03-23] MEDS ORDERED: ASPI-999 PO (14:59)
[2018-03-23] MEDS ORDERED: ACETAMINOPHEN 325 MG TABLET PO PRN (18:00)
[2018-03-23] MEDS ORDERED: inSUlin ASPART (NovoLOG) 1 UNIT/0.01 ML (CHARGE PER UNIT) ONE (20:31)
[2018-03-23] MEDS: ENALAPRIL 20 MG PO SCH (20:37)
[2018-03-23] MEDS: inSUlin ASPART (NovoLOG) 1 UNIT/0.01 ML (CHARGE PER UNIT) SC SCH (20:42)
[2018-03-23] MEDS ORDERED: ATORVASTATIN 40 MG (LIPITOR) TABLET PO SCH (21:00)
[2018-03-24] VITALS: BP 157/63
[2018-03-24 03:35] LABS: HEMOGLOBIN 10.9 G/DL (11.5-16.0); RED BLOOD COUNT 3.99 10^6/uL (4.35-5.85); RED CELL DISTRIBUTION WIDTH 15.4 % (10.0-14.5); WHITE BLOOD COUNT 8.2 10^3/uL (4.3-11.0)
[2018-03-24 03:56] LABS: ALANINE AMINOTRANSFERASE 46 U/L (0-55); ALBUMIN 3.7 GM/DL (3.2-4.5); ALKALINE PHOSPHATASE 61 U/L (40-136); BILIRUBIN,TOTAL 0.4 MG/DL (0.1-1.0); BUN/CREATININE RATIO 25; CALCIUM 9.3 MG/DL (8.5-10.1); CARBON DIOXIDE 25 MMOL/L (21-32); CHLORIDE 103 MMOL/L (98-107); CHOLESTEROL 155 MG/DL (< 200); CREATININE SERUM 0.84 MG/DL (0.60-1.30); GFR ESTIMATED > 60; GLUCOSE 278 MG/DL (70-105); HDL CHOLESTEROL 28 MG/DL (40-60); POTASSIUM 4.4 MMOL/L (3.6-5.0); SODIUM 137 MMOL/L (135-145); TOTAL PROTEIN 6.3 GM/DL (6.4-8.2); TRIGLYCERIDES 186 MG/DL (<150); VLDL CHOLESTEROL 37 MG/DL (5-40)
[2018-03-24 04:00] VITALS: BP 115/41
[2018-03-24] MEDS ORDERED: GLIMEPIRIDE 4 MG (AMARYL) TAB PO SCH (06:30)
[2018-03-24] MEDS ORDERED: inSUlin ASPART (NovoLOG) 1 UNIT/0.01 ML (CHARGE PER UNIT) ONE (06:43)
[2018-03-24] MEDS: inSUlin ASPART (NovoLOG) 1 UNIT/0.01 ML (CHARGE PER UNIT) SC SCH ×2 (06:48→11:38)
[2018-03-24] MEDS ORDERED: PANTOPRAZOLE 20 MG TABLET (PROTONIX) PO SCH (07:00)
[2018-03-24 08:30] VITALS: BP 150/60
[2018-03-24] MEDS: ENALAPRIL 20 MG PO SCH (08:35)
[2018-03-24] MEDS: GABAPENTIN 300 MG (NEURONTIN) CAP PO SCH (08:35)
[2018-03-24] MEDS: HYDRALAZINE 50 MG PO SCH (08:36)
[2018-03-24] MEDS ORDERED: ASPIRIN 81 MG CHEW (CHILDREN'S ASA) PO SCH (09:00)
[2018-03-24] MEDS ORDERED: Metoprolol Succinate 200 MG PO SCH (09:00)
[2018-03-24] MEDS ORDERED: INSULIN DEGLUDEC 26 UNIT SQ SCH (09:00)
[2018-03-24] MEDS ORDERED: amLODIPine 10 MG (NORVASC) TAB PO SCH (09:00)
[2018-03-24] MEDS ORDERED: CLOPIDOGREL 75 MG (PLAVIX) TABLET PO SCH (09:00)
[2018-03-24 11:55] VITALS: BP 160/74
[2018-03-24 13:30] VITALS: BP 160/74
--- NOTE | 2018-03-24 19:52 | Cardiology Progress Note ---
Cardiology SOAP Progress Note Subjective: No cardiac symptoms. Objective: I&O/Vital Signs 03/24/18 03/24/18 03/24/18 11:55 11:58 13:30 Temp 96.4 Pulse 68 68 Resp 20 20 B/P (MAP) 160/74 (102) 160/74 Pulse Ox 96 96 96 O2 Delivery Room Air Room Air Room Air 03/24/18 00:00 Intake Total 200 ml Balance 200 ml Weight (Pounds): 199 Weight (Ounces): 0.0 Weight (Calculated Kilograms): [id number] Side: right Groin site without hematoma: Yes Device Insertion Site: without hematoma, no signs of inflammation Swelling: without swelling Constitutional: No appears stated age, No AAO x 3, No apparent distress, No PERRL, No well-developed, No well-nourished, No other Respiratory: No accessory muscle use, No respiratory distress, No chest tender , No chest expansion is symmetric; chest is bilaterally symmetric; No lungs clear to percussion; lungs clear to auscultation; No crackles, No rhonchi, No rales, No stridor, No wheezing, No pleural rub, No other Cardiovascular: regular rate-rhythm; No irregularly irregular, No extra beats, No parasternal heave is noted, No JVD, No edema, No bradycardia, No tachycardia , No point of maximal impulse, No cardiac thrills are palpable; S1 and S2; No gallop/S3, No gallop/S4, No diastolic murmur, No systolic murmur, No friction rub, No click, No other Gastrointestional: No tender, No soft, No round, No distended, No pulsatile mass, No organomegaly, No guarding, No rebound, No tenderness, No hernia, No mass, No audible bowel sounds, No abnormal bowel sounds, No abdominal bruits, No spleenomegaly, No other Extremities: No normal range of motion, No non-tender, No normal inspection, No pedal edema, No calf tenderness, No normal capillary refill, No pelvis stable , No calf tenderness, No inflammation, No pedal edema, No slow capillary refill , No swelling, No other, No abrasion, No clubbing, No cyanosis, No ecchymosis, No laceration, No no lower extremity edema bilateral, No significant edema, No tenderness, No wound Neurologic/Psychiatric: no motor/sensory deficits, alert, normal mood/affect, oriented x 3 Skin: No normal color, No warm/dry, No cyanosis, No cool, No diaphoresis, No damp, No ecchymosis, No jaundice, No mottled, No pallor, No rash, No tattoos/ piercings, No ulcerations, No rash on exposed areas, No ulcerations on exposed areas, No other Results/Procedures: Labs Laboratory Tests 03/24/18 03:10: White Blood Count 8.2, Red Blood Count 3.99L, Hemoglobin 10.9L, Hematocrit 34L, Mean Corpuscular Volume 86, Mean Corpuscular Hemoglobin 27, Mean Corpuscular Hemoglobin Concent 32, Red Cell Distribution Width 15.4H, Platelet Count 234, Mean Platelet Volume 10.0, Sodium Level 137, Potassium Level 4.4, Chloride Level 103, Carbon Dioxide Level 25, Anion Gap 9, Blood Urea Nitrogen 21H, Creatinine 0.84, Estimat Glomerular Filtration Rate > 60, BUN/Creatinine Ratio 25, Glucose Level 278H, Calcium Level 9.3, Total Bilirubin 0.4, Aspartate Amino Transf (AST/SGOT) 27, Alanine Aminotransferase (ALT/SGPT) 46, Alkaline Phosphatase 61, Total Protein 6.3L, Albumin 3.7, Triglycerides Level 186H, Cholesterol Level 155, LDL Cholesterol Direct 86, VLDL Cholesterol 37, HDL Cholesterol 28L 03/24/18 11:20: Glucometer 346H Microbiology 03/23/18 MRSA Screen - Final, Complete MRSA not isolated A/P: Assessment/Dx: CAD, status post multivessel PCI, Anemia, Hyperlipidemia, Hypertension Plan: Continue dual antiplatelet therapy for at least a year. Staged PCI to left circumflex artery. PCI with drug-eluting stent done to LAD and RCA by Dr. Kohli yesterday. Patient to follow-up with Dr. Kohli as an outpatient. Outpatient workup for anemia. Continue current treatment for hyperlipidemia and hypertension. Thank you for your consultation. Please call me if you have any questions. Christine Dailey MD, FACP, FACC, FSCAI, FHRS, CCDS Interventional Cardiology Cardiac Electrophysiology Vascular Medicine and Endovascular Interventions Brodie DAILEY MD Mar 24, 2018 19:52
== END 2018-03-24 13:30 | disposition home or self-care (01) ==
LOC: CATH 07:14 → SURG 10:07 → ICU 11:05 → CATH 03-24 13:30
PROVIDERS: ATTEND Internal Medicine Cardiovascular Disease
DX: I25.10 Atherosclerotic heart disease of native coronary artery without angina pectoris (principal); D64.9 Anemia, unspecified; E78.5 Hyperlipidemia, unspecified; I10 Essential (primary) hypertension; E11.43 Type 2 diabetes mellitus with diabetic autonomic (poly)neuropathy; Z87.891 Personal history of nicotine dependence; E66.9 Obesity, unspecified; Z68.33 Body mass index [BMI] 33.0-33.9, adult; Z79.82 Long term (current) use of aspirin; Z79.4 Long term (current) use of insulin; Z79.899 Other long term (current) drug therapy; Z95.820 Peripheral vascular angioplasty status with implants and grafts
CPT/HCPCS: 36415; 80053; 80061; 82962; 85027; 85610; 85730; 87081; 93005; 93458

== ENCOUNTER 2018-04-27 08:55 | Inpatient (IN) | payer OTHER ==
[~2018-04-27] VITALS: Ht 165.1 cm; Wt 93.7 kg
[~2018-04-27 08:55] MED LIST changes: +AMLO10TA4 PO; +ASPI-999 PO; +ATOR40TA PO; +CLOP75TA28 PO; +PANT20TA3 PO
[2018-04-27] MEDS ORDERED: NS IV 1000 ML 1,000 ML IV ONE (09:13)
--- NOTE | 2018-04-27 09:36 | ED Lower Extremity ---
General Chief Complaint: Lower Extremity Stated Complaint: RT BIG TOE WOUND Nursing Triage Note: TO ROOM REPORTS ON THURSDAY WAS WALKING WITH WET SHOES ON IT RUBBED HIS R 2ND TOE. CONCERN TODAY BECAUSE TOP OF SKIN ON TOE IS COMING OFF. Nursing Sepsis Screen: No Definite Risk Source: patient Exam Limitations: no limitations (RADHA GERARDO STUDENT) History of Present Illness Date Seen by Provider: Apr 27, 2018 Time Seen by Provider: 09:03 Initial Comments Patient with history of peripheral vascular disease and diabetic neuropathy presents with a wound to her the second toe of her right foot. She says that she walked on 04/25/18 in the rain and thinks that she rubbed her toe, after she got home she noticed that the tow was red and hurt. Patient has history of diabetic foot ulcer, now checks her feet for wounds every evening and reports that before 04/25/18 she had no evidence of injury to the toe. Today she reports that the toe had turned black which prompted her to report to the ED as she was unable to contact her house visitor. Patient denies fever and visualizing red streaks up the foot. Onset: other (48 hours) Severity: moderate Pain/Injury Location: right 2nd toe Method of Injury: other (Friction) (RADHA GERARDO STUDENT) Initial Comments She has been treating wound with topical bacitracin and Silvadene. Noted much worse this morning prompting visit to the ER. Traditionally follows with Dr. Sarmiento for foot problems. Onset: other (48 hours) Pain/Injury Location: right foot Method of Injury: other (Friction) Modifying Factors: Improves With Rest (SAM CADENA MD) Allergies and Home Medications Allergies Coded Allergies: No Known Drug Allergies (Unverified , 01/19/11) Home Medications Amlodipine Besylate 10 Mg Tablet, 10 MG PO DAILY, (Reported) Aspirin 81 Mg Tab.chew, 81 MG PO DAILY Prescribed by: DUANE CAMPBELL on 03/23/18 1459 Atorvastatin Calcium 40 Mg Tablet, 80 MG PO HS Prescribed by: DUANE CAMPBELL on 03/23/18 144 Clopidogrel Bisulfate 75 Mg Tablet, 75 MG PO DAILY Prescribed by: DUANE CAMPBELL on 03/23/18 1447 Enalapril Maleate 20 Mg Tablet, 20 MG PO BID, (Reported) Gabapentin 300 Mg Capsule, 900 MG PO TID, (Reported) TAKES 3 (300 MG) CAPSULES Glimepiride 4 Mg Tablet, 8 MG PO DAILY, (Reported) TAKES 2 (4 MG) TABLETS Hydralazine HCl 50 Mg Tablet, 50 MG PO TID, (Reported) Insulin Degludec 100 Unit/1 Ml Insuln.pen, 26 UNIT SQ DAILY, (Reported) Metformin HCl 500 Mg Tab.er.24, 1,000 MG PO BID, (Reported) TAKES 2 (500 MG) TABLETS Metoprolol Succinate 200 Mg Tab.er.24h, 200 MG PO DAILY, (Reported) Pantoprazole Sodium 20 Mg Tablet.dr, 20 MG PO DAILY@0700 Prescribed by: DUANE CAMPBELL on 03/23/18 1447 Tramadol HCl 50 Mg Tablet, 50 MG PO TID, (Reported) Patient Home Medication List Home Medication List Reviewed: Yes (RADHA GERARDO STUDENT) Home Medication List Reviewed: Yes (SAM CADENA MD) Constitutional: no symptoms reported; No chills, No dizziness, No fever Respiratory: no symptoms reported; No cough, No short of breath Cardiovascular: No chest pain; Hx of Intervention; No palpitations Gastrointestinal: no symptoms reported; No abdominal pain, No constipation, No diarrhea, No nausea, No vomiting Genitourinary: no symptoms reported; No dysuria, No frequency, No incontinence Musculoskeletal: see HPI, joint pain Skin: change in color, change in hair/nails Psychiatric/Neurological: Numbness (Diabetic neuropathy), Paresthesia ( Diabetic neuropathy), Tingling (Diabetic neuropathy) (RADHA GERARDO STUDENT) Constitutional: No weakness EENTM: no symptoms reported Genitourinary: dysuria, other (reports recent change in urine habits causing her concern for urinary tract infection) Skin: change in color, change in hair/nails, lesions (SAM CADENA MD) All Other Systems Reviewed Negative Unless Noted: Yes (SAM CADENA MD) Past Uhsxtdf-Accyje-Kzsuvr Hx Past Med/Social Hx: Reviewed Nursing Past Med/Soc Hx (SAM CADENA MD) Patient Social History Alcohol Use: Denies Use Recreational Drug Use: No Smoking Status: Former Smoker Type Used: Cigarettes Former Smoker, Quit: Mar 23, 1990 Recent Foreign Travel: No Contact w/Someone Who Travel: No Recent Infectious Disease Expo: No Recent Hopitalizations: No (RADHA GERARDO) Immunizations Up To Date Tetanus Booster (TDap): Unknown PED Vaccines UTD: No Date of Pneumonia Vaccine: Jun 03, 2011 (RADHA GERARDO) Seasonal Allergies Seasonal Allergies: No (RADHA GERARDO) Past Medical History Surgeries: Yes (right leg vein sx x2) Tubal Ligation Respiratory: No Currently Using CPAP: No Currently Using BIPAP: No Cardiac: Yes Hypertension, Peripheral Vascular Neurological: Yes Neuropathy 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 Disorders: No Female 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 Disorders: Denies Genitourinary: Yes UTI-Chronic Gastrointestinal: Yes Gastroesophageal Reflux Musculoskeletal: Yes Fibromyalgia Endocrine: Yes Diabetes, Non-Insulin dep HEENT: No Loss of Vision: Denies Hearing Impairment: Denies Cancer: No Psychosocial: No Integumentary: Yes (diabetic ulcer right foot) Blood Disorders: No Adverse Reaction/Blood Tranf: No (RADHA GERARDO) Family Medical History Reviewed Nursing Family Hx (SAM CADENA MD) Cardiovascular disease 19 MOTHER, G8 BROTHER G8 BROTHER Completed stroke 19 MOTHER, Diabetes mellitus 19 FATHER, 19 MOTHER, G8 BROTHER G8 SISTER FH: brain tumor FH: breast cancer 19 MOTHER, FH: lung cancer FHx: peripheral neuropathy Hypertension 19 FATHER, Lung c 19 FATHER, Myocardial infarction 19 MOTHER, Neuro No Pertinent Family Hx, Hypertension (RADHA GERARDO) Physical Exam Vital Signs Vital Signs - First Documented 04/27/18 09:00 Temp 97.4 Pulse 74 Resp 18 B/P (MAP) 172/77 (108) Pulse Ox 97 O2 Delivery Room Air (SAM CADENA MD) Vital Signs Capillary Refill : Less Than 3 Seconds (RADHA GERARDO) Height, Weight, BMI Height: 5'3.00" Weight: 197lbs. 0.0oz. [id number]; 33.3 BMI Method:Stated General Appearance: WD/WN, no apparent distress Cardiovascular: No normal peripheral pulses (Weak dorsalis pedis and posterior tibialis pulses bilaterally); regular rate, rhythm, no edema, no gallop, no JVD , no murmur Respiratory: chest non-tender, lungs clear, normal breath sounds, no respiratory distress, no accessory muscle use Gastrointestinal: normal bowel sounds, non tender, soft, no organomegaly, no pulsatile mass Ankles: bilateral ankle non-tender, bilateral ankle normal inspection, bilateral ankle no evidence of injury Feet: right foot infection, right foot nail injury, right foot pain, right foot soft tissue tenderness, right foot swelling Neurologic/Psychiatric: No no motor/sensory deficits (Diabetic neuropathy); alert, normal mood/affect, oriented x 3 Skin: No normal color (RADHA GERARDO MED STUDENT) General Appearance: WD/WN, no apparent distress HEENT: PERRL/EOMI, pharynx normal Neck: full range of motion, supple Cardiovascular: regular rate, rhythm, no murmur Respiratory: lungs clear, normal breath sounds Gastrointestinal: non tender, soft Feet: right foot other (right foot with wound to the distal aspect of the second toe with blackened wound and skin starting to fall off on the bottom of the toe. Redness extends from the toe up through the mid foot with swelling of the toe and forefoot noted.) Neurologic/Psychiatric: alert, oriented x 3 Skin: warm/dry, other (erythema and color change to the right foot as described above) (SAM CADENA MD) Progress/Results/Core Measures Results/Orders Lab Results Laboratory Tests Test 04/27/18 09:32 04/27/18 10:51 Range/Units White Blood Count 9.2 4.3-11.0 10^3/uL Red Blood Count 4.06 L 4.35-5.85 10^6/uL Hemoglobin 11.0 L 11.5-16.0 G/DL Hematocrit 35 35-52 % Mean Corpuscular Volume 85 80-99 FL Mean Corpuscular Hemoglobin 27 25-34 PG Mean Corpuscular Hemoglobin Concent 32 32-36 G/DL Red Cell Distribution Width 14.8 H 10.0-14.5 % Platelet Count 247 130-400 10^3/uL Mean Platelet Volume 9.4 7.4-10.4 FL Neutrophils (%) (Auto) 69 42-75 % Lymphocytes (%) (Auto) 21 12-44 % Monocytes (%) (Auto) 8 0-12 % Eosinophils (%) (Auto) 2 0-10 % Basophils (%) (Auto) 0 0-10 % Neutrophils # (Auto) 6.3 1.8-7.8 X 10^3 Lymphocytes # (Auto) 1.9 1.0-4.0 X 10^3 Monocytes # (Auto) 0.8 0.0-1.0 X 10^3 Eosinophils # (Auto) 0.1 0.0-0.3 10^3/uL Basophils # (Auto) 0.0 0.0-0.1 10^3/uL Sodium Level 136 135-145 MMOL/L Potassium Level 4.3 3.6-5.0 MMOL/L Chloride Level 99 98-107 MMOL/L Carbon Dioxide Level 26 21-32 MMOL/L Anion Gap 11 5-14 MMOL/L Blood Urea Nitrogen 18 7-18 MG/DL Creatinine 0.74 0.60-1.30 MG/DL Estimat Glomerular Filtration Rate > 60 BUN/Creatinine Ratio 24 Glucose Level 252 H 70-105 MG/DL Lactic Acid Level 3.32 *H 0.50-2.00 MMOL/L Calcium Level 9.7 8.5-10.1 MG/DL Corrected Calcium 9.7 8.5-10.1 MG/DL Total Bilirubin 0.5 0.1-1.0 MG/DL Aspartate Amino Transf (AST/SGOT) 24 5-34 U/L Alanine Aminotransferase (ALT/SGPT) 37 0-55 U/L Alkaline Phosphatase 85 40-136 U/L C-Reactive Protein High Sensitivity 3.62 H 0.00-0.50 MG/DL Total Protein 7.1 6.4-8.2 GM/DL Albumin 4.0 3.2-4.5 GM/DL (SAM CADENA MD) My Orders Orders - SAM CADENA MD Foot, Right, 3 View (04/27/18 09:13) Cbc With Automated Diff (04/27/18 09:13) Comprehensive Metabolic Panel (04/27/18 09:13) Hs C Reactive Protein (04/27/18 09:13) Lactic Acid Analyzer (04/27/18 09:13) Blood Culture (04/27/18 09:13) Saline Lock/Iv-Start (04/27/18 09:13) Ns Iv 1000 Ml (Sodium Chloride 0.9%) (04/27/18 09:13) Ua Culture If Indicated (04/27/18 09:44) Piperacillin Sodium/Tazobactam (Zosyn Vi (04/27/18 10:30) Wound Culture (04/27/18 10:58) (SAM CADENA MD) Medications Given in ED Current Medications Medications Dose Ordered Sig/[place] Route Start Time Stop Time Status Last Admin Dose Admin Sodium Chloride 1,000 ml @ 0 mls/hr Q0M ONCE IV 04/27/18 09:13 04/27/18 09:15 DC 04/27/18 09:39 1,000 MLS/HR (SAM CADENA MD) Vital Signs/I&O 04/27/18 09:00 Temp 97.4 Pulse 74 Resp 18 B/P (MAP) 172/77 (108) Pulse Ox 97 O2 Delivery Room Air (SAM CADENA MD) Blood Pressure Mean: 108 Progress Progress Note : Time: 10:15 Progress Note Labs reviewed. Elevated lactic acid at 3.32. Concerns for worsening infection, working on admitting to hospital. Starting Zosyn 4.5g IV (RADHA GERARDO MED STUDENT) Progress Note : Progress Note I have seen and evaluated the patient and agree with above except as indicated. I have directed the plan of care. Patient is here with foot wound concerning for increasing infection. Does have peripheral artery disease as well as diabetic neuropathy and diabetes. Denies fever or chills. Exam as above. We will check labs, blood cultures and lactic acid. IV normal saline 1 L bolus ordered. We did add UA after patient complained of urinary symptoms later in the visit. 1053: I did discuss the case with Dr. Sutton as patient's lactic acid is greater than 3. She is not hypotensive and does not meet indication for severe sepsis or septic shock requiring high-volume fluid resuscitation. Due to vascular disease, we will get wound culture and then initiate Zosyn 4.5 g IV as well as order vancomycin IV as inpatient. Admit, inpatient status. Patient agrees with plan. Dr. Sarmiento will be consulted as her preferred fire support specialist and supply specialist. 1112: Case discussed with Dr. Sarmiento and he will see the patient in consult and is in agreement with the plan. (SAM CADENA MD) Diagnostic Imaging Diagonstic Imaging: Xray Plain Films/CT/US/NM/MRI: other Comments NAME: BRYSON ROBB [facility] REC#: [id number] PT STATUS: REG ER : 1955 PHYSICIAN: SAM CADENA MD ADMIT DATE: 04/27/18/ER Signed Date of Exam: 04/27/18 FOOT, RIGHT, 3 VIEW Indication: Diabetes. Findings: There are postsurgical changes in the first interphalangeal joint. There is no acute fracture or dislocation. There is no radiographic evidence of osteomyelitis. Impression: Postsurgical changes of first interphalangeal joint otherwise unremarkable. Dictated by: Dictated on workstation # [id number] Dict: 04/27/18 1015 Trans: 04/27/18 1019 Interpreted by: ANGELA GONZALEZ MD Electronically signed by: ANGELA GONZALEZ MD 04/27/18 1019 Reviewed: Reviewed by Me (SAM CADENA MD) Departure Communication (Admissions) Time/Spoke to Admitting Phy: 10:53 Time/Spoke to Consulting Phy: 11:12 (SAM CADENA MD) Impression Primary Impression: Wound, open, foot Qualified Codes: S91.301A - Unspecified open wound, right foot, initial encounter Additional Impressions: Sepsis Qualified Codes: A41.9 - Sepsis, unspecified organism Uncontrolled diabetes mellitus Qualified Codes: E11.65 - Type 2 diabetes mellitus with hyperglycemia Disposition: ADMITTED INPATIENT Condition: Stable Admissions Decision to Admit Reason: Admit from ER (General) Decision to Admit/Date: Apr 27, 2018 Time/Decision to Admit Time: 10:53 (SAM CADENA MD) Departure-Patient Inst. Referrals: TAYO SUTTON DO (PCP/Family) Primary Care Physician RADHA GERARDO MED STUDENT Apr 27, 2018 09:36 SAM CADENA MD Apr 27, 2018 11:11
[2018-04-27 09:46] LABS: BASOPHILS % (AUTO) 0 % (0-10); EOSINOPHILS # (AUTO) 0.1 10^3/uL (0.0-0.3); EOSINOPHILS % (AUTO) 2 % (0-10); HEMATOCRIT 35 % (35-52); LYMPHOCYTES # (AUTO) 1.9 X 10^3 (1.0-4.0); LYMPHOCYTES % (AUTO) 21 % (12-44); MEAN CORPUSCULAR HEMOGLOBIN 27 PG (25-34); MEAN CORPUSCULAR HGB CONC 32 G/DL (32-36); MEAN CORPUSCULAR VOLUME 85 FL (80-99); MEAN PLATELET VOLUME 9.4 FL (7.4-10.4); MONOCYTES # (AUTO) 0.8 X 10^3 (0.0-1.0); MONOCYTES % (AUTO) 8 % (0-12); NEUTROPHILS # (AUTO) 6.3 X 10^3 (1.8-7.8); NEUTROPHILS % (AUTO) 69 % (42-75); PLATELET COUNT 247 10^3/uL (130-400); RED BLOOD COUNT 4.06 10^6/uL (4.35-5.85); RED CELL DISTRIBUTION WIDTH 14.8 % (10.0-14.5); WHITE BLOOD COUNT 9.2 10^3/uL (4.3-11.0)
[2018-04-27 10:09] LABS: ALANINE AMINOTRANSFERASE 37 U/L (0-55); ALKALINE PHOSPHATASE 85 U/L (40-136); BILIRUBIN,TOTAL 0.5 MG/DL (0.1-1.0); BUN/CREATININE RATIO 24; CALCIUM 9.7 MG/DL (8.5-10.1); CARBON DIOXIDE 26 MMOL/L (21-32); CHLORIDE 99 MMOL/L (98-107); CREATININE SERUM 0.74 MG/DL (0.60-1.30); GFR ESTIMATED > 60; GLUCOSE 252 MG/DL (70-105); POTASSIUM 4.3 MMOL/L (3.6-5.0); SODIUM 136 MMOL/L (135-145); TOTAL PROTEIN 7.1 GM/DL (6.4-8.2)
--- NOTE | 2018-04-27 10:18 | Diagnostic Imaging Report ---
Indication: Diabetes. Findings: There are postsurgical changes in the first interphalangeal joint. There is no acute fracture or dislocation. There is no radiographic evidence of osteomyelitis. Impression: Postsurgical changes of first interphalangeal joint otherwise unremarkable. Dictated by: Dictated on workstation # [id number]
[2018-04-27] MEDS ORDERED: PIPERACILLIN SODIUM/TAZOBACTAM 4.5 GM in D5W 100 ML IVPB 100 ML IV ONE (10:30)
[2018-04-27 11:07] LABS: BILIRUBIN,URINE NEGATIVE (NEGATIVE); CLARITY,URINE SLIGHTLY CLOUDY; COLOR,URINE YELLOW; GLUCOSE, URINE (UA) 1+ (NEGATIVE); KETONES,URINE NEGATIVE (NEGATIVE); LEUKOCYTE ESTERASE ,URINE 1+ (NEGATIVE); NITRITE,URINE NEGATIVE (NEGATIVE); PH,URINE 5 (5-9); PROTEIN,URINE NEGATIVE (NEGATIVE); UROBILINOGEN,URINE NORMAL (NORMAL)
[2018-04-27 11:16] LABS: BACTERIA,URINE TRACE /HPF
[2018-04-27 11:17] LABS: YEAST,URINE FEW /HPF
[2018-04-27 12:00] VITALS: BP 165/68
[2018-04-27] MEDS ORDERED: VANCOMYCIN 1,750 MG/NS 500 ML IVPB IV NR ×2 (12:30)
[2018-04-27] MEDS ORDERED: CATHETER FLUSH 10 ML SYR IV PRN (12:30)
[2018-04-27] MEDS: NS IV 1000 ML 1,000 ML IV SCH (12:31)
[2018-04-27] MEDS ORDERED: ASPI-999 PO (13:29)
[2018-04-27] MEDS ORDERED: PANT20TA2 PO (13:29)
[2018-04-27] MEDS ORDERED: CLOP75TA69 PO (13:29)
[2018-04-27] MEDS ORDERED: ATOR40TA PO (13:29)
[2018-04-27 16:02] VITALS: BP 168/72
[2018-04-27] MEDS: inSUlin ASPART (NovoLOG) 1 UNIT/0.01 ML (CHARGE PER UNIT) SC SCH ×2 (16:39→21:07)
[2018-04-27] MEDS: PIPERACILLIN/TAZO 4.5 GM/D5W 100 ML IV SCH ×2 (16:39)
[2018-04-27] MEDS ORDERED: metFORMIN XR 500 MG (GLUCOPHAGE XR) TAB PO SCH (17:00)
[2018-04-27] MEDS ORDERED: NON-FORMULARY MEDICATION 1 EA EA (Hydralazine HCl 50 MG) PO SCH ×2 (17:15→21:00)
[2018-04-27] MEDS: hydrALAZINE (APRESOLINE) 25 MG TAB PO SCH ×2 (17:46→21:05)
[2018-04-27] MEDS: GABAPENTIN 300 MG (NEURONTIN) CAP PO SCH ×2 (17:46→21:05)
--- NOTE | 2018-04-27 18:50 | History & Physicial ---
History of Present Illness History of Present Illness Reason for visit/HPI walked home in rain Thursday and arm and rubbed right foot second toe onset Thursday. Was a tiny speck on Thursday and did not look bad. kaelyn toes look bad. Skin was coming off and black spot. Patient came out to the emergency room and admitted allergic medicine denies. Surgeries tubal ligation 1983 and evelin and 2 legs venous surgery. Family history all have diabetes. Father of lung cancer Date of Admission Apr 27, 2018 at 11:00 Time Seen by Provider: 18:45 I consulted on this patient on 04/27/18 18:44 Attending Physician Nino Sutton DO Admitting Physician Nino Sutton DO Consult Allergies and Home Medications Allergies Coded Allergies: No Known Drug Allergies (Unverified , 01/19/11) Home Medications Amlodipine Besylate 10 Mg Tablet, 10 MG PO DAILY, (Reported) LAST FILLED #30 12-08-17 Aspirin 81 Mg Tab.chew, 81 MG PO DAILY, (Reported) Atorvastatin Calcium 40 Mg Tablet, 80 MG PO HS, (Reported) TAKES 2 (40MG) TABLETS Clopidogrel Bisulfate 75 Mg Tablet, 75 MG PO DAILY, (Reported) Enalapril Maleate 20 Mg Tablet, 20 MG PO BID, (Reported) Gabapentin 300 Mg Capsule, 900 MG PO 0800,1500,2100, (Reported) TAKES 3 (300 MG) CAPSULES Glimepiride 4 Mg Tablet, 8 MG PO DAILY, (Reported) TAKES 2 (4 MG) TABLETS Hydralazine HCl 50 Mg Tablet, 50 MG PO 0800,1500,2100, (Reported) Insulin Degludec 100 Unit/1 Ml Insuln.pen, 26 UNIT SQ HS, (Reported) Metformin HCl 500 Mg Tab.er.24, 1,000 MG PO BID, (Reported) TAKES 2 (500 MG) TABLETS Metoprolol Succinate 200 Mg Tab.er.24h, 200 MG PO DAILY, (Reported) Pantoprazole Sodium 20 Mg Tablet.dr, 20 MG PO DAILY, (Reported) Tramadol HCl 50 Mg Tablet, 50 MG PO 0800,1500,2100, (Reported) Patient Home Medication List Home Medication List Reviewed: Yes Past Yxirfzl-Bsltwk-Fhawks Hx Patient Social History Marrital Status: Employed/Student: unemployed Alcohol Use: Denies Use Recreational Drug Use: No Smoking Status: Former Smoker Former Smoker, Quit: Apr 27, 1990 Type Used: Cigarettes Physical Abuse Screen: No Sexual Abuse: No Recent Foreign Travel: No Contact w/other who traveled: No Recent Hopitalizations: No Recent Infectious Disease Expo: No Immunizations Up To Date Tetanus Booster (TDap): Unknown Pediatric: No Date of Pneumonia Vaccine: Jun 03, 2011 Seasonal Allergies Seasonal Allergies: No Surgeries Yes (right leg vein sx x2) Tubal Ligation Respiratory No Currently Using CPAP: No Currently Using BIPAP: No Cardiovascular Yes (STENTS) Hypertension, Peripheral Vascular Neurological Yes Neuropathy 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 System Hx 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 Disorders: No Female 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 Disorders: Denies Genitourinary Yes UTI-Chronic Gastrointestinal Yes Gastroesophageal Reflux Musculoskeletal Yes Fibromyalgia Endocrine History of Endocrine Disorders: Yes Endocrine Disorders: Diabetes, Non-Insulin dep Are Your Blood Sugars Over 250: No HEENT History of HEENT Disorders: No Loss of Vision: Denies Hearing Impairment: Denies Cancer No Psychosocial History of Psychiatric Problem: No Integumentary History of Skin or Integumenta: Yes (diabetic ulcer right foot) Blood Transfusions History of Blood Disorders: No Adverse Reaction to a Blood Tr: No Family Medical History Significant Family History: No Pertinent Family Hx, Hypertension Family Hx: Cardiovascular disease 19 MOTHER, G8 BROTHER G8 BROTHER Completed stroke 19 MOTHER, Diabetes mellitus 19 FATHER, 19 MOTHER, G8 BROTHER G8 SISTER FH: brain tumor FH: breast cancer 19 MOTHER, FH: lung cancer FHx: peripheral neuropathy Hypertension 19 FATHER, Lung c 19 FATHER, Myocardial infarction 19 MOTHER, Neuro Constitutional: no symptoms reported EENTM: no symptoms reported Respiratory: no symptoms reported Cardiovascular: no symptoms reported Genitourinary: no symptoms reported : No Physical Exam Vital Signs Vital Signs - First Documented 04/27/18 09:00 Temp 97.4 Pulse 74 Resp 18 B/P (MAP) 172/77 (108) Pulse Ox 97 O2 Delivery Room Air Capillary Refill : Less Than 3 Seconds Height, Weight, BMI Height: 5'5.00" Weight: 206lbs. 8.0oz. 93.433398zm; 34.4 BMI Method:Stated General Appearance: No Apparent Distress, WD/WN Eyes: Bilateral Eye Normal Inspection HEENT: Normal ENT Inspection Neck: Normal Inspection, Non Tender Respiratory: No Accessory Muscle Use, No Respiratory Distress Gastrointestinal: Non Tender, Soft Assessment/Plan Assessment and Plan right foot cellulitis. Diabetic wound. Peripheral vascular disease. Diabetic neuropathy. Admission Diagnosis Admission Status: Inpatient Order (span 2 midnights) Reason for Inpatient Admission: right foot diabetic wound. Cellulitis. Peripheral vascular disease. previous history of foot problem Clinical Quality Measures DVT/VTE Risk/Contraindication: Risk Factor Score Per Nursin RFS Level Per Nursing on Admit: 4+=Very High NINO SUTTON DO Apr 27, 2018 18:49
--- NOTE | 2018-04-27 20:15 | Podiatry Progress Note ---
Standard Progress Note Progress Notes/Assess & Plan Date Seen by Provider: Apr 27, 2018 Time Seen by Provider: 20:14 Progress/Assessment & Plan Consult dictated. Debrided the distal portion of the right 2nd digit revealing a partial thickness wound. I believe that wound care and PO antibiotics could be done at home (cultures indicated normal skin bob). She is to follow up in my office on Thursday. I recommend the use of a crest pad and splint shoe for ambulation with assistance of crutches or walker. Final Diagnosis Diabetic Neuropathy, Cellulitis R2 toe, Ulceration R2 toe, Hammertoe R2 REAGAN,MARIBEL Q DPM Apr 27, 2018 20:14
[2018-04-27 20:35] VITALS: BP 154/69
[2018-04-27] MEDS ORDERED: GABAPENTIN 300 MG (NEURONTIN) CAP PO SCH (21:00)
[2018-04-27] MEDS ORDERED: INSULIN DEGLUDEC 26 UNIT SQ SCH (21:00)
[2018-04-27] MEDS ORDERED: inSUlin DETERMIR 1 UNIT/0.01 ML (LEVEMIR) CHARGE PER UNIT SQ SCH (21:00)
[2018-04-27] MEDS ORDERED: ATORVASTATIN 80 MG (LIPITOR) TABLET PO SCH (21:00)
[2018-04-27] MEDS ORDERED: ATORVASTATIN 40 MG (LIPITOR) TABLET PO SCH (21:00)
[2018-04-27] MEDS ORDERED: NON-FORMULARY MEDICATION 1 EA EA (Enalapril Maleate 20 MG) PO SCH (21:00)
[2018-04-27] MEDS: ENALAPRIL 10 MG (VASOTEC) TAB PO SCH (21:13)
[2018-04-27] MEDS: metFORMIN XR 500 MG (GLUCOPHAGE XR) TAB PO SCH (21:14)
[2018-04-28] MEDS ORDERED: VANCOMYCIN 1250 MG/NS 250 ML IVPB IV SCH ×2
[2018-04-28 00:18] VITALS: BP 147/68
--- NOTE | 2018-04-28 00:31 | CONSULTATION REPORT ---
DATE OF SERVICE: 04/27/2018 REASON FOR CONSULTATION: Diabetic foot care. HISTORY OF PRESENT ILLNESS: This 63-year-old was admitted through the ER for a wound that has developed over the weekend on the right second digit. She was walking in the rain on Thursday where upon she noticed the next day that there is some loose skin and discoloration to the tip of the toe. This became more blackened and there is some discharge. She became concerned and went to the ER. She denies any current fever, chills, nausea or vomiting. PAST MEDICAL HISTORY: Type 2 diabetes, peripheral neuropathy, hypertension, peripheral vascular disease, fibromyalgia, gastroesophageal reflux, history of ulceration to the right hallux. PAST SURGICAL HISTORY: Include tubal ligation and venous stripping. SOCIAL HISTORY: The patient denies any current alcohol, tobacco or illicit drug use. She is just starting a new job and is anticipating to be on her feet more. PHYSICAL EXAMINATION: GENERAL: This is a well-developed female in no apparent distress. She is currently afebrile with vital signs stable. EXTREMITIES: On right lower extremity, she has diminished pedal pulses. Edema is noted. There is some erythema associated with the right second digit with loose epidermis to the hyponychium and subungual area. With debridement of this area, there is a partial thickness wound to the tip of the right second digit. It measures approximately 2 cm in diameter with a fibrotic base. No exposed bone. No deep probing noticed. No proximal streaking. There is some erythema to the distal portion of the digit. MUSCULOSKELETAL: Include a semi-rigid contracture of the right second digit. There is some hallux elevatus noted on the right foot. X-rays were reviewed. No gross osteolysis is noted to the right second digit. The x-rays also show resection of the head of the proximal phalanx of the right hallux consistent with previous surgery that I had performed. ASSESSMENT: Cellulitis right second digit partial thickness wound, right second digit peripheral vascular disease, Hammer digit syndrome right second digit. PLAN: Various treatment options were discussed with the patient. The loose skin was debrided at bedside without the aid of anesthesia. The wound was cleansed after which Silvadene gauze and a light dressing was applied. In my opinion, if the culture comes back as Staph epidermidis, I believe she can be treated well on outpatient basis and can follow up in my office upon discharge. In the meantime, I anticipate that wound care will be performed daily with cleansing of the wound, Silvadene and a gauze dressing. Upon discharge, she is to use SilvaSorb and a light dressing with her crest pad and surgical splint shoe. She is to have minimal weightbearing with use of crutches or walker and her surgical splint shoe. Anticipate that she will be able to transition to an oral antibiotic soon. Job ID: [id number] DocumentID: [id number] Dictated Date: 04/27/2018 20:10:20 News Technical Director Date: 04/28/2018 00:31:04 Dictated By: GAURI CUMMINGS
[2018-04-28] MEDS: MUPIROCIN 2% OINT 22 GM (BACTROBAN) TUBE TOP SCH ×2 (01:05→08:34)
[2018-04-28] MEDS: PIPERACILLIN/TAZO 4.5 GM/D5W 100 ML IV SCH ×4 (01:12→08:33)
[2018-04-28 04:12] VITALS: BP 143/63
[2018-04-28 05:51] LABS: BASOPHILS % (AUTO) 1 % (0-10); EOSINOPHILS # (AUTO) 0.2 10^3/uL (0.0-0.3); EOSINOPHILS % (AUTO) 3 % (0-10); HEMATOCRIT 32 % (35-52); HEMOGLOBIN 10.2 G/DL (11.5-16.0); LYMPHOCYTES # (AUTO) 1.6 X 10^3 (1.0-4.0); LYMPHOCYTES % (AUTO) 23 % (12-44); MEAN CORPUSCULAR HEMOGLOBIN 27 PG (25-34); MEAN CORPUSCULAR HGB CONC 32 G/DL (32-36); MEAN CORPUSCULAR VOLUME 86 FL (80-99); MEAN PLATELET VOLUME 9.4 FL (7.4-10.4); MONOCYTES # (AUTO) 0.8 X 10^3 (0.0-1.0); MONOCYTES % (AUTO) 11 % (0-12); NEUTROPHILS # (AUTO) 4.6 X 10^3 (1.8-7.8); NEUTROPHILS % (AUTO) 63 % (42-75); PLATELET COUNT 221 10^3/uL (130-400); RED BLOOD COUNT 3.78 10^6/uL (4.35-5.85); WHITE BLOOD COUNT 7.2 10^3/uL (4.3-11.0)
[2018-04-28 06:05] LABS: ALANINE AMINOTRANSFERASE 30 U/L (0-55); ALBUMIN 3.5 GM/DL (3.2-4.5); ALKALINE PHOSPHATASE 65 U/L (40-136); BILIRUBIN,TOTAL 0.3 MG/DL (0.1-1.0); BUN/CREATININE RATIO 18; CALCIUM 8.9 MG/DL (8.5-10.1); CARBON DIOXIDE 24 MMOL/L (21-32); CHLORIDE 106 MMOL/L (98-107); CREATININE SERUM 0.62 MG/DL (0.60-1.30); GFR ESTIMATED > 60; GLUCOSE 80 MG/DL (70-105); POTASSIUM 3.8 MMOL/L (3.6-5.0); SODIUM 141 MMOL/L (135-145)
[2018-04-28] MEDS: metFORMIN XR 500 MG (GLUCOPHAGE XR) TAB PO SCH (06:08)
[2018-04-28] MEDS: inSUlin ASPART (NovoLOG) 1 UNIT/0.01 ML (CHARGE PER UNIT) SC SCH ×2 (06:15→10:31)
[2018-04-28] MEDS ORDERED: GLIMEPIRIDE 4 MG (AMARYL) TAB PO SCH (06:30)
[2018-04-28] MEDS ORDERED: PANTOPRAZOLE 20 MG TABLET (PROTONIX) PO SCH (07:00)
[2018-04-28 08:00] VITALS: BP 161/73
--- NOTE | 2018-04-28 08:27 | Progress Note (SOAP) ---
Subjective Time Seen by Provider: 08:20 Subjective/Events-last exam Cellulitis of second toe. Toe has been debrided by podiatry. Patient wants to go home today. I do not have the culture and sensitivity back Focused Exam Lactate Level 04/27/18 09:32: Lactic Acid Level 3.32*H 04/27/18 11:37: Lactic Acid Level 2.65*H Objective Exam Vital Signs Date Time Temp Pulse Resp B/P (MAP) Pulse Ox O2 Delivery O2 Flow Rate FiO2 04/28/18 04:12 97.8 70 17 143/63 (89) 92 Room Air 04/28/18 00:18 97.5 76 17 147/68 (94) 94 Room Air 04/27/18 20:35 98.9 80 20 154/69 (97) 95 Room Air 04/27/18 16:02 98.0 73 20 168/72 (104) 97 Room Air 04/27/18 12:00 96.6 66 20 165/68 (100) 97 Room Air 04/27/18 12:00 Room Air 04/27/18 11:32 73 18 169/59 97 04/27/18 09:00 97.4 74 18 172/77 (108) 97 Room Air I & O 04/28/18 07:00 Intake Total 1877.5 ml Output Total 1000 ml Balance 877.5 ml Capillary Refill : Less Than 3 Seconds General Appearance: No Apparent Distress, WD/WN HEENT: Normal ENT Inspection Neck: Full Range of Motion, Normal Inspection Respiratory: Lungs Clear, No Accessory Muscle Use, No Respiratory Distress Cardiovascular: Regular Rate, Rhythm, No Murmur Gastrointestinal: non tender, soft Results Lab Laboratory Tests 04/27/18 09:32 04/28/18 05:35 Laboratory Tests 04/27/18 09:32: White Blood Count 9.2, Red Blood Count 4.06L, Hemoglobin 11.0L, Hematocrit 35, Mean Corpuscular Volume 85, Mean Corpuscular Hemoglobin 27, Mean Corpuscular Hemoglobin Concent 32, Red Cell Distribution Width 14.8H, Platelet Count 247, Mean Platelet Volume 9.4, Neutrophils (%) (Auto) 69, Lymphocytes (%) (Auto) 21, Monocytes (%) (Auto) 8, Eosinophils (%) (Auto) 2, Basophils (%) (Auto) 0, Neutrophils # (Auto) 6.3, Lymphocytes # (Auto) 1.9, Monocytes # (Auto) 0.8, Eosinophils # (Auto) 0.1, Basophils # (Auto) 0.0, Sodium Level 136, Potassium Level 4.3, Chloride Level 99, Carbon Dioxide Level 26, Anion Gap 11, Blood Urea Nitrogen 18, Creatinine 0.74, Estimat Glomerular Filtration Rate > 60, BUN/ Creatinine Ratio 24, Glucose Level 252H, Lactic Acid Level 3.32*H, Calcium Level 9.7, Corrected Calcium 9.7, Total Bilirubin 0.5, Aspartate Amino Transf ( AST/SGOT) 24, Alanine Aminotransferase (ALT/SGPT) 37, Alkaline Phosphatase 85, C -Reactive Protein High Sensitivity 3.62H, Total Protein 7.1, Albumin 4.0 04/27/18 10:51: Urine Color YELLOW, Urine Clarity SLIGHTLY CLOUDY, Urine pH 5, Urine Specific [place] 1.010L, Urine Protein NEGATIVE, Urine Glucose (UA) 1+H, Urine Ketones NEGATIVE, Urine Nitrite NEGATIVE, Urine Bilirubin NEGATIVE, Urine Urobilinogen NORMAL, Urine Leukocyte Esterase 1+H, Urine RBC (Auto) NEGATIVE, Urine RBC NONE , Urine WBC 2-5, Urine Squamous Epithelial Cells 5-10, Urine Crystals NONE, Urine Bacteria TRACE, Urine Casts NONE, Urine Mucus NEGATIVE, Urine Yeast FEWH, Urine Culture Indicated YES 04/27/18 11:37: Lactic Acid Level 2.65*H 04/27/18 16:02: Glucometer 261H 04/27/18 20:41: Glucometer 357H 04/28/18 05:35: White Blood Count 7.2, Red Blood Count 3.78L, Hemoglobin 10.2L, Hematocrit 32L, Mean Corpuscular Volume 86, Mean Corpuscular Hemoglobin 27, Mean Corpuscular Hemoglobin Concent 32, Red Cell Distribution Width 15.0H, Platelet Count 221, Mean Platelet Volume 9.4, Neutrophils (%) (Auto) 63, Lymphocytes (%) (Auto) 23, Monocytes (%) (Auto) 11, Eosinophils (%) (Auto) 3, Basophils (%) (Auto) 1, Neutrophils # (Auto) 4.6, Lymphocytes # (Auto) 1.6, Monocytes # (Auto) 0.8, Eosinophils # (Auto) 0.2, Basophils # (Auto) 0.0, Sodium Level 141, Potassium Level 3.8, Chloride Level 106, Carbon Dioxide Level 24, Anion Gap 11, Blood Urea Nitrogen 11, Creatinine 0.62, Estimat Glomerular Filtration Rate > 60, BUN/ Creatinine Ratio 18, Glucose Level 80, Calcium Level 8.9, Corrected Calcium 9.3 , Total Bilirubin 0.3, Aspartate Amino Transf (AST/SGOT) 17, Alanine Aminotransferase (ALT/SGPT) 30, Alkaline Phosphatase 65, Total Protein 6.0L, Albumin 3.5 Assessment/Plan Assessment/Plan Assess & Plan/Chief Complaint Cellulitis of second toe. Diabetes. Peripheral vascular disease. Peripheral neuropathy. Hypertension. GERD. History of ulcer of right hallux Clinical Quality Measures Admission Status Admission Dx right foot cellulitis. Diabetic wound. Peripheral vascular disease. Diabetic neuropathy. DVT/VTE Risk/Contraindication: Risk Factor Score Per Nursin RFS Level Per Nursing on Admit: 4+=Very High TAYO SUTTON DO Apr 28, 2018 08:27
[2018-04-28] MEDS: GABAPENTIN 300 MG (NEURONTIN) CAP PO SCH (08:31)
[2018-04-28] MEDS: ENALAPRIL 10 MG (VASOTEC) TAB PO SCH (08:32)
[2018-04-28] MEDS: hydrALAZINE (APRESOLINE) 25 MG TAB PO SCH (08:33)
[2018-04-28] MEDS: NS IV 1000 ML 1,000 ML IV SCH (08:34)
[2018-04-28] MEDS ORDERED: meTOprolol SUCCINATE 100 MG (TOPROL XL) TAB PO SCH (09:00)
[2018-04-28] MEDS ORDERED: ASPIRIN 81 MG CHEW (CHILDREN'S ASA) PO SCH (09:00)
[2018-04-28] MEDS ORDERED: amLODIPine 10 MG (NORVASC) TAB PO SCH (09:00)
[2018-04-28] MEDS ORDERED: NON-FORMULARY MEDICATION 1 EA EA (Pantoprazole Sodium (Protonix) 20 MG) PO SCH (09:00)
[2018-04-28] MEDS ORDERED: GLIMEPIRIDE 8 MG PO SCH (09:00)
[2018-04-28] MEDS ORDERED: NON-FORMULARY MEDICATION 1 EA EA (Metoprolol Succinate 200 MG) PO SCH (09:00)
[2018-04-28] MEDS ORDERED: CLOPIDOGREL 75 MG (PLAVIX) TABLET PO SCH (09:00)
[2018-04-28] MEDS ORDERED: AMLODIPINE BESYLATE 10 MG PO SCH (09:00)
[2018-04-28] MEDS ORDERED: SILVASORB GEL 1.5 OZ TP SCH ×2 (09:15→09:45)
[2018-04-28] MEDS ORDERED: LACTOBACILLUS Acidoph/Bulgar (LACTINEX/FLORANEX) TAB PO SCH (11:00)
[2018-04-28] MEDS ORDERED: TROUGH ORDER-PHARMACY XX NR (11:00)
[2018-04-28] MEDS ORDERED: CEPH-507 PO (11:03)
[2018-04-28] MEDS ORDERED: SILV480G TP (11:09)
[2018-04-28 11:52] VITALS: BP 161/73
[2018-04-29] MEDS ORDERED: SILVASORB GEL 1.5 OZ TP SCH (09:00)
--- NOTE | 2018-04-29 15:41 | Physician Query-Final Dx ---
[facility] 04/29/18 1541: Final Diagnosis Give Final Diagnosis Please give Final Diagnosis TAYO SUTTON DO 04/30/18 0853: Final Diagnosis Give Final Diagnosis I did the chart this morning you can find it in the chart [facility] Apr 29, 2018 15:41 TAYO SUTTON DO Apr 30, 2018 08:53
--- NOTE | 2018-04-30 07:21 | Discharge Summary ---
Diagnosis/Chief Complaint Date of Admission Apr 27, 2018 at 11:00 Date of Discharge Apr 28, 2018 at 11:56 Discharge Date: Apr 28, 2018 Discharge Time: 07:10 Discharge Diagnosis Right foot second toe cellulitis. Diabetic wound. Peripheral vascular disease. Diabetic neuropathy. Hammer digit syndrome Reason Hospital Visit walked home in rain Thursday and arm and rubbed right foot second toe onset Thursday. Was a tiny speck on Thursday and did not look bad. kaelyn toes look bad. Skin was coming off and black spot. Patient came out to the emergency room and admitted allergic medicine denies. Surgeries tubal ligation 1983 and evelin and 2 legs venous surgery. Family history all have diabetes. Father of lung cancer Discharge Summary Procedures Debridement Consultations Podiatry Discharge Physical Examination Allergies: Coded Allergies: No Known Drug Allergies (Unverified , 01/19/11) Vitals & I&Os Vital Signs Date Time Temp Pulse Resp B/P (MAP) Pulse Ox O2 Delivery O2 Flow Rate FiO2 04/28/18 11:52 72 20 161/73 96 Room Air 04/28/18 08:00 97.9 Hospital Course Toes look better after debridement. Sent home on oral antibiotic as per machine whitener Labs (last 24 hrs) Laboratory Tests 04/27/18 09:32: White Blood Count 9.2, Red Blood Count 4.06L, Hemoglobin 11.0L, Hematocrit 35, Mean Corpuscular Volume 85, Mean Corpuscular Hemoglobin 27, Mean Corpuscular Hemoglobin Concent 32, Red Cell Distribution Width 14.8H, Platelet Count 247, Mean Platelet Volume 9.4, Neutrophils (%) (Auto) 69, Lymphocytes (%) (Auto) 21, Monocytes (%) (Auto) 8, Eosinophils (%) (Auto) 2, Basophils (%) (Auto) 0, Neutrophils # (Auto) 6.3, Lymphocytes # (Auto) 1.9, Monocytes # (Auto) 0.8, Eosinophils # (Auto) 0.1, Basophils # (Auto) 0.0, Sodium Level 136, Potassium Level 4.3, Chloride Level 99, Carbon Dioxide Level 26, Anion Gap 11, Blood Urea Nitrogen 18, Creatinine 0.74, Estimat Glomerular Filtration Rate > 60, BUN/ Creatinine Ratio 24, Glucose Level 252H, Lactic Acid Level 3.32*H, Calcium Level 9.7, Corrected Calcium 9.7, Total Bilirubin 0.5, Aspartate Amino Transf ( AST/SGOT) 24, Alanine Aminotransferase (ALT/SGPT) 37, Alkaline Phosphatase 85, C -Reactive Protein High Sensitivity 3.62H, Total Protein 7.1, Albumin 4.0 04/27/18 10:51: Urine Color YELLOW, Urine Clarity SLIGHTLY CLOUDY, Urine pH 5, Urine Specific [place] 1.010L, Urine Protein NEGATIVE, Urine Glucose (UA) 1+H, Urine Ketones NEGATIVE, Urine Nitrite NEGATIVE, Urine Bilirubin NEGATIVE, Urine Urobilinogen NORMAL, Urine Leukocyte Esterase 1+H, Urine RBC (Auto) NEGATIVE, Urine RBC NONE , Urine WBC 2-5, Urine Squamous Epithelial Cells 5-10, Urine Crystals NONE, Urine Bacteria TRACE, Urine Casts NONE, Urine Mucus NEGATIVE, Urine Yeast FEWH, Urine Culture Indicated YES 04/27/18 11:37: Lactic Acid Level 2.65*H 04/27/18 16:02: Glucometer 261H 04/27/18 20:41: Glucometer 357H 04/28/18 05:35: White Blood Count 7.2, Red Blood Count 3.78L, Hemoglobin 10.2L, Hematocrit 32L, Mean Corpuscular Volume 86, Mean Corpuscular Hemoglobin 27, Mean Corpuscular Hemoglobin Concent 32, Red Cell Distribution Width 15.0H, Platelet Count 221, Mean Platelet Volume 9.4, Neutrophils (%) (Auto) 63, Lymphocytes (%) (Auto) 23, Monocytes (%) (Auto) 11, Eosinophils (%) (Auto) 3, Basophils (%) (Auto) 1, Neutrophils # (Auto) 4.6, Lymphocytes # (Auto) 1.6, Monocytes # (Auto) 0.8, Eosinophils # (Auto) 0.2, Basophils # (Auto) 0.0, Sodium Level 141, Potassium Level 3.8, Chloride Level 106, Carbon Dioxide Level 24, Anion Gap 11, Blood Urea Nitrogen 11, Creatinine 0.62, Estimat Glomerular Filtration Rate > 60, BUN/ Creatinine Ratio 18, Glucose Level 80, Calcium Level 8.9, Corrected Calcium 9.3 , Total Bilirubin 0.3, Aspartate Amino Transf (AST/SGOT) 17, Alanine Aminotransferase (ALT/SGPT) 30, Alkaline Phosphatase 65, Total Protein 6.0L, Albumin 3.5 04/28/18 10:22: Glucometer 145H 04/28/18 11:01: Vancomycin Level Trough 13.3 Microbiology 04/27/18 Blood Culture - Preliminary, Resulted No growth 04/27/18 Urine Culture - Final, Complete See Comments 04/27/18 Gram Stain - Final, Resulted 04/27/18 Wound Culture - Preliminary, Resulted See Comments Sent To [facility] Pending Labs Microbiology Date/Time Source Procedure Growth Status 04/27/18 09:59 Peripheral Rt Ac Blood Culture - Preliminary No growth Resulted 04/27/18 09:32 Peripheral Arm, Left Blood Culture - Preliminary No growth Resulted 04/27/18 10:51 Urine Clean Catch Urine Culture - Final See Comments Complete 04/27/18 11:17 Cyst/Abscess Toe Gram Stain - Final Resulted 04/27/18 11:17 Wound Culture - Preliminary See Comments Sent To [facility] Resulted Laboratory Tests 04/27/18 09:32: White Blood Count 9.2, Red Blood Count 4.06, Hemoglobin 11.0, Hematocrit 35, Mean Corpuscular Volume 85, Mean Corpuscular Hemoglobin 27, Mean Corpuscular Hemoglobin Concent 32, Red Cell Distribution Width 14.8, Platelet Count 247, Mean Platelet Volume 9.4, Neutrophils (%) (Auto) 69, Lymphocytes (%) (Auto) 21, Monocytes (%) (Auto) 8, Eosinophils (%) (Auto) 2, Basophils (%) (Auto) 0, Neutrophils # (Auto) 6.3, Lymphocytes # (Auto) 1.9, Monocytes # (Auto) 0.8, Eosinophils # (Auto) 0.1, Basophils # (Auto) 0.0, Sodium Level 136, Potassium Level 4.3, Chloride Level 99, Carbon Dioxide Level 26, Anion Gap 11, Blood Urea Nitrogen 18, Creatinine 0.74, Estimat Glomerular Filtration Rate > 60, BUN/ Creatinine Ratio 24, Glucose Level 252, Lactic Acid Level 3.32, Calcium Level 9.7, Corrected Calcium 9.7, Total Bilirubin 0.5, Aspartate Amino Transf (AST/ SGOT) 24, Alanine Aminotransferase (ALT/SGPT) 37, Alkaline Phosphatase 85, C- Reactive Protein High Sensitivity 3.62, Total Protein 7.1, Albumin 4.0 04/27/18 10:51: Urine Color YELLOW, Urine Clarity SLIGHTLY CLOUDY, Urine pH 5, Urine Specific [place] 1.010, Urine Protein NEGATIVE, Urine Glucose (UA) 1+, Urine Ketones NEGATIVE, Urine Nitrite NEGATIVE, Urine Bilirubin NEGATIVE, Urine Urobilinogen NORMAL, Urine Leukocyte Esterase 1+, Urine RBC (Auto) NEGATIVE, Urine RBC NONE, Urine WBC 2-5, Urine Squamous Epithelial Cells 5-10, Urine Crystals NONE, Urine Bacteria TRACE, Urine Casts NONE, Urine Mucus NEGATIVE, Urine Yeast FEW, Urine Culture Indicated YES 04/27/18 11:37: Lactic Acid Level 2.65 04/27/18 16:02: Glucometer 261 04/27/18 20:41: Glucometer 357 04/28/18 05:35: White Blood Count 7.2, Red Blood Count 3.78, Hemoglobin 10.2, Hematocrit 32, Mean Corpuscular Volume 86, Mean Corpuscular Hemoglobin 27, Mean Corpuscular Hemoglobin Concent 32, Red Cell Distribution Width 15.0, Platelet Count 221, Mean Platelet Volume 9.4, Neutrophils (%) (Auto) 63, Lymphocytes (%) (Auto) 23, Monocytes (%) (Auto) 11, Eosinophils (%) (Auto) 3, Basophils (%) (Auto) 1, Neutrophils # (Auto) 4.6, Lymphocytes # (Auto) 1.6, Monocytes # (Auto) 0.8, Eosinophils # (Auto) 0.2, Basophils # (Auto) 0.0, Sodium Level 141, Potassium Level 3.8, Chloride Level 106, Carbon Dioxide Level 24, Anion Gap 11, Blood Urea Nitrogen 11, Creatinine 0.62, Estimat Glomerular Filtration Rate > 60, BUN/ Creatinine Ratio 18, Glucose Level 80, Calcium Level 8.9, Corrected Calcium 9.3 , Total Bilirubin 0.3, Aspartate Amino Transf (AST/SGOT) 17, Alanine Aminotransferase (ALT/SGPT) 30, Alkaline Phosphatase 65, Total Protein 6.0, Albumin 3.5 04/28/18 10:22: Glucometer 145 04/28/18 11:01: Vancomycin Level Trough 13.3 Discussion & Recommendations Patient wanted to go home. Patient toe looked much better Discharge Home Medications: Active Scripts Active Silvasorb (Silver) 480 Ml Gel.er.ml. 480 Ml TP DAILY Keflex (Cephalexin) 500 Mg Capsule 500 Mg PO TID Reported Aspirin 81 Mg Tab.chew 81 Mg PO DAILY Protonix (Pantoprazole Sodium) 20 Mg Tablet.dr 20 Mg PO DAILY Plavix (Clopidogrel Bisulfate) 75 Mg Tablet 75 Mg PO DAILY Lipitor (Atorvastatin Calcium) 40 Mg Tablet 80 Mg PO HS TAKES 2 (40MG) TABLETS Norvasc (Amlodipine Besylate) 10 Mg Tablet 10 Mg PO DAILY LAST FILLED #30 3-27-18 Hydralazine HCl 50 Mg Tablet 50 Mg PO 0800,1500,2100 Metoprolol Succinate 200 Mg Tab.er.24h 200 Mg PO DAILY Enalapril Maleate 20 Mg Tablet 20 Mg PO BID Glimepiride 4 Mg Tablet 8 Mg PO DAILY TAKES 2 (4 MG) TABLETS Tresiba Flextouch U-100 (Insulin Degludec) 100 Unit/1 Ml Insuln.pen 26 Unit SQ HS Gabapentin 300 Mg Capsule 900 Mg PO 0800,1500,2100 TAKES 3 (300 MG) CAPSULES Metformin HCl ER (Metformin HCl) 500 Mg Tab.er.24 1,000 Mg PO BID TAKES 2 (500 MG) TABLETS Tramadol HCl 50 Mg Tablet 50 Mg PO 0800,1500,2100 Instructions to patient/family Please see electronic discharge instructions given to patient. Clinical Quality Measures DVT/VTE Risk/Contraindication: Risk Factor Score Per Nursin RFS Level Per Nursing on Admit: 4+=Very High TAYO SUTTON DO Apr 30, 2018 07:21
== END 2018-04-28 11:56 | disposition home or self-care (01) | DRG 603 ==
LOC: EDUNIT# 08:55 → ER 08:57 → 4TH 11:00
PROVIDERS: ADMIT Family Medicine; ATTEND Family Medicine
PROC: 0HDMXZZ Extraction of Right Foot Skin, External Approach (ICD-10-PCS; principal; 2018-04-27)
DX: L03.031 Cellulitis of right toe (principal); E11.622 Type 2 diabetes mellitus with other skin ulcer; L97.519 Non-pressure chronic ulcer of other part of right foot with unspecified severity; E11.40 Type 2 diabetes mellitus with diabetic neuropathy, unspecified; E11.65 Type 2 diabetes mellitus with hyperglycemia; E11.51 Type 2 diabetes mellitus with diabetic peripheral angiopathy without gangrene; M20.41 Other hammer toe(s) (acquired), right foot; I10 Essential (primary) hypertension; K21.9 Gastro-esophageal reflux disease without esophagitis; M79.7 Fibromyalgia; Z87.891 Personal history of nicotine dependence; Z79.4 Long term (current) use of insulin
CPT/HCPCS: 36415; 73630; 80053; 80202; 81000; 82962; 83605; 85025; 86141; 87040; 87070; 87088; 87205

== ENCOUNTER → 2018-10-15 | Outpatient (CLI) | payer OTHER ==
[~2018-10-15] MED LIST changes: -AMLO10TA2 PO; +AMLO10TA7 PO; +CEPH-507 PO; +CLOP75TA69 PO; +METF-397 PO; -METF500T5 PO; +PANT20TA2 PO; +SILV480G TP
[2018-10-15 13:04] LABS: BILIRUBIN,URINE NEGATIVE (NEGATIVE); CLARITY,URINE CLEAR; COLOR,URINE YELLOW; GLUCOSE, URINE (UA) NEGATIVE (NEGATIVE); KETONES,URINE NEGATIVE (NEGATIVE); LEUKOCYTE ESTERASE ,URINE 3+ (NEGATIVE); NITRITE,URINE POSITIVE (NEGATIVE); PH,URINE 5 (5-9); PROTEIN,URINE 1+ (NEGATIVE); UROBILINOGEN,URINE NORMAL (NORMAL)
[2018-10-15 13:22] LABS: WBC,URINE 25-50 /HPF
[2018-10-15 13:23] LABS: BACTERIA,URINE LARGE /HPF
== END ==
LOC: LAB 12:17
PROVIDERS: ATTEND Family Medicine
DX: N39.0 Urinary tract infection, site not specified (principal)
CPT/HCPCS: 81000; 87077; 87088; 87186

== ENCOUNTER 2018-11-10 16:29 | Inpatient (IN) | payer OTHER ==
[~2018-11-10] VITALS: Ht 165.1 cm; Wt 86.9 kg
[~2018-11-10 16:29] MED LIST changes: -ATOR80TA76 PO; -INSU100V6 SQ; -ONDA8TAB13 PO
[2018-11-10 17:00] VITALS: BP 150/67
[2018-11-10] MEDS ORDERED: CATHETER FLUSH 10 ML SYR IV PRN (17:15)
[2018-11-10] MEDS: AZITHROMYCIN 500 MG/NS 250 ML IVPB IV SCH ×2 (17:52)
[2018-11-10] MEDS: cefTRIAXone 1,000 MG/SWFI 10 ML IV PUSH IV SCH ×2 (17:52)
[2018-11-10] MEDS: NS IV 1000 ML 1,000 ML IV SCH (17:53)
[2018-11-10 18:02] LABS: BASOPHILS % (AUTO) 0 % (0-10); EOSINOPHILS % (AUTO) 0 % (0-10); HEMATOCRIT 35 % (35-52); HEMOGLOBIN 10.7 G/DL (11.5-16.0); LYMPHOCYTES # (AUTO) 1.2 X 10^3 (1.0-4.0); LYMPHOCYTES % (AUTO) 29 % (12-44); MEAN CORPUSCULAR HEMOGLOBIN 27 PG (25-34); MEAN CORPUSCULAR HGB CONC 31 G/DL (32-36); MEAN CORPUSCULAR VOLUME 87 FL (80-99); MEAN PLATELET VOLUME 10.2 FL (7.4-10.4); MONOCYTES # (AUTO) 0.6 X 10^3 (0.0-1.0); MONOCYTES % (AUTO) 16 % (0-12); NEUTROPHILS # (AUTO) 2.2 X 10^3 (1.8-7.8); NEUTROPHILS % (AUTO) 55 % (42-75); PLATELET COUNT 212 10^3/uL (130-400); RED CELL DISTRIBUTION WIDTH 15.2 % (10.0-14.5)
[2018-11-10 18:18] LABS: ALANINE AMINOTRANSFERASE 20 U/L (0-55); ALBUMIN 3.7 GM/DL (3.2-4.5); ALKALINE PHOSPHATASE 61 U/L (40-136); BILIRUBIN,TOTAL 0.3 MG/DL (0.1-1.0); BUN/CREATININE RATIO 22; CALCIUM 9.3 MG/DL (8.5-10.1); CARBON DIOXIDE 23 MMOL/L (21-32); CHLORIDE 100 MMOL/L (98-107); CREATININE SERUM 0.76 MG/DL (0.60-1.30); GFR ESTIMATED > 60; GLUCOSE 141 MG/DL (70-105); POTASSIUM 3.4 MMOL/L (3.6-5.0); SODIUM 137 MMOL/L (135-145); TOTAL PROTEIN 6.7 GM/DL (6.4-8.2)
[2018-11-10] MEDS: inSUlin ASPART (NovoLOG) 1 UNIT/0.01 ML (CHARGE PER UNIT) SC SCH ×2 (18:43→21:12)
--- NOTE | 2018-11-10 19:00 | NUR ---
CLARISSEBRYSON Walt admitted to room 411-1, with an admitting diagnosis of pna, on 11/10/[address] Bernabe office, accompanied by .BRYSON ROBB introduced to surroundings, call light, bed controls, phone, TV, temperature control, lights, meal times, smoking policy, visitor policy, side rail policy, bathrooms and showers. Patient Rights given to patient in the handbook. BRYSON ROBB verbalizes understanding that [facility] is not responsible for the loss or damage to any personal effects or valuables that are kept in the patients posession during their hospitalization. The following Patient Care Plans and discharge were discussed with the patient. BRYSON ROBB verbalizes understanding of Interdisciplinary Patient Education.
[2018-11-10 19:30] VITALS: BP 158/70
[2018-11-10] MEDS ORDERED: RT-ALBUTEROL/IPRATROPIUM 3 ML (DUONEB) VIAL ONE (22:43)
[2018-11-10] MEDS: GABAPENTIN 300 MG (NEURONTIN) CAP PO SCH (23:17)
[2018-11-10] MEDS: hydrALAZINE (APRESOLINE) 25 MG TAB PO SCH (23:17)
[2018-11-10] MEDS: ENALAPRIL 10 MG (VASOTEC) TAB PO SCH (23:17)
[2018-11-10] MEDS: ATORVASTATIN 80 MG (LIPITOR) TABLET PO SCH (23:17)
[2018-11-11] VITALS (7 sets, daily range): BP systolic 143–195; BP diastolic 65–82
[2018-11-11] MEDS: inSUlin ASPART (NovoLOG) 1 UNIT/0.01 ML (CHARGE PER UNIT) SC SCH ×4 (05:45→21:33)
--- NOTE | 2018-11-11 05:45 | NUR ---
MACHINIST HELPER MARINE REPORTED BLOOD SUGAR OF 47, GIVEN CRACKERS AND PEANUT BUTTER. WILL RECHECK IN [address] SUTTON NOTIFIED OF BLOOD SUGAR LEVEL. NO NEW ORDERS
[2018-11-11 07:04] LABS: BASOPHILS % (AUTO) 0 % (0-10); EOSINOPHILS % (AUTO) 0 % (0-10); HEMATOCRIT 32 % (35-52); LYMPHOCYTES # (AUTO) 1.7 X 10^3 (1.0-4.0); LYMPHOCYTES % (AUTO) 36 % (12-44); MEAN CORPUSCULAR HEMOGLOBIN 27 PG (25-34); MEAN CORPUSCULAR HGB CONC 31 G/DL (32-36); MEAN CORPUSCULAR VOLUME 86 FL (80-99); MEAN PLATELET VOLUME 9.8 FL (7.4-10.4); MONOCYTES # (AUTO) 0.7 X 10^3 (0.0-1.0); MONOCYTES % (AUTO) 14 % (0-12); NEUTROPHILS # (AUTO) 2.4 X 10^3 (1.8-7.8); NEUTROPHILS % (AUTO) 50 % (42-75); PLATELET COUNT 202 10^3/uL (130-400); RED CELL DISTRIBUTION WIDTH 15.4 % (10.0-14.5); WHITE BLOOD COUNT 4.8 10^3/uL (4.3-11.0)
[2018-11-11] MEDS: RT-ALBUTEROL SULF 2.5 MG/3 ML PRE-MIX VIAL INH SCH ×4 (07:18→19:52)
[2018-11-11 07:27] LABS: ALANINE AMINOTRANSFERASE 19 U/L (0-55); ALBUMIN 3.4 GM/DL (3.2-4.5); ALKALINE PHOSPHATASE 57 U/L (40-136); BILIRUBIN,TOTAL 0.2 MG/DL (0.1-1.0); BUN/CREATININE RATIO 19; CALCIUM 8.7 MG/DL (8.5-10.1); CARBON DIOXIDE 23 MMOL/L (21-32); CHLORIDE 104 MMOL/L (98-107); CREATININE SERUM 0.72 MG/DL (0.60-1.30); GFR ESTIMATED > 60; GLUCOSE 152 MG/DL (70-105); POTASSIUM 3.1 MMOL/L (3.6-5.0); SODIUM 138 MMOL/L (135-145); TOTAL PROTEIN 6.3 GM/DL (6.4-8.2)
[2018-11-11] MEDS: ENALAPRIL 10 MG (VASOTEC) TAB PO SCH ×2 (07:51→21:34)
[2018-11-11] MEDS: amLODIPine 10 MG (NORVASC) TAB PO SCH (07:52)
[2018-11-11] MEDS: hydrALAZINE (APRESOLINE) 25 MG TAB PO SCH ×3 (07:52→21:33)
[2018-11-11] MEDS: PANTOPRAZOLE 20 MG TABLET (PROTONIX) PO SCH (07:52)
[2018-11-11] MEDS: CLOPIDOGREL 75 MG (PLAVIX) TABLET PO SCH (07:52)
[2018-11-11] MEDS: GABAPENTIN 300 MG (NEURONTIN) CAP PO SCH ×3 (07:53→21:34)
[2018-11-11] MEDS: NS IV 1000 ML 1,000 ML IV SCH ×2 (07:59→21:34)
--- NOTE | 2018-11-11 08:25 | History & Physicial ---
History of Present Illness History of Present Illness Reason for visit/HPI Patient treated for pneumonia as outpatient. This was not successful. Patient needed IV antibiotics. Patient showed up at the office yesterday feeling worse trouble breathing short of breath. Patient feeling terrible. Chest x-ray shows pneumonia. Patient admitted for pneumonia unsuccessful as outpatient. Patient and known diabetic. Patient has coronary artery disease Date of Admission Nov 10, 2018 at 16:47 Time Seen by a Provider: 08:20 I consulted on this patient on 11/11/18 08:20 Attending Physician Nino Sutton DO Admitting Physician Nino Sutton DO Consult Allergies and Home Medications Allergies Coded Allergies: No Known Drug Allergies (Unverified , 01/19/11) Home Medications Amlodipine Besylate 10 Mg Tablet, 10 MG PO DAILY, (Reported) LAST FILLED #30 12-08-17 Aspirin 81 Mg Tab.chew, 81 MG PO DAILY, (Reported) Atorvastatin Calcium 40 Mg Tablet, 80 MG PO HS, (Reported) TAKES 2 (40MG) TABLETS Cephalexin 500 Mg Capsule, 500 MG PO TID Prescribed by: BREANNE CRUZ on 04/28/18 1103 Clopidogrel Bisulfate 75 Mg Tablet, 75 MG PO DAILY, (Reported) Enalapril Maleate 20 Mg Tablet, 20 MG PO BID, (Reported) Gabapentin 300 Mg Capsule, 900 MG PO 0800,1500,2100, (Reported) TAKES 3 (300 MG) CAPSULES Glimepiride 4 Mg Tablet, 8 MG PO DAILY, (Reported) TAKES 2 (4 MG) TABLETS Hydralazine HCl 50 Mg Tablet, 50 MG PO 0800,1500,2100, (Reported) Insulin Degludec 100 Unit/1 Ml Insuln.pen, 26 UNIT SQ HS, (Reported) Metformin HCl 500 Mg Tab.er.24, 1,000 MG PO BID, (Reported) TAKES 2 (500 MG) TABLETS Metoprolol Succinate 200 Mg Tab.er.24h, 200 MG PO DAILY, (Reported) Pantoprazole Sodium 20 Mg Tablet.dr, 20 MG PO DAILY, (Reported) Silver 480 Ml Gel.er.ml., 480 ML TP DAILY Prescribed by: BREANNE CRUZ on 04/28/18 1109 Tramadol HCl 50 Mg Tablet, 50 MG PO 0800,1500,2100, (Reported) Patient Home Medication List Home Medication List Reviewed: Yes Past Tdxlcqi-Ixukxr-Wzhqlc Hx Patient Social History Marrital Status: Employed/Student: employed Alcohol Use: Denies Use Recreational Drug Use: No Former Smoker, Quit: Apr 27, 1990 Type Used: Cigarettes Physical Abuse Screen: No Sexual Abuse: No Recent Foreign Travel: No Contact w/other who traveled: No Recent Hopitalizations: No Recent Infectious Disease Expo: No Immunizations Up To Date Tetanus Booster (TDap): Unknown Pediatric: No Date of Pneumonia Vaccine: Jun 03, 2011 Date of Influenza Vaccine: Jun 14, 2018 Seasonal Allergies Seasonal Allergies: No Surgeries Yes (right leg vein sx x2) Tubal Ligation Respiratory No Currently Using CPAP: No Currently Using BIPAP: No Cardiovascular Yes (STENTS) Hypertension, Peripheral Vascular Neurological Yes Neuropathy 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 System : No Hx 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 Disorders: No Female 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 Disorders: Denies Genitourinary Yes UTI-Chronic Gastrointestinal Yes Gastroesophageal Reflux Musculoskeletal Yes Fibromyalgia Endocrine History of Endocrine Disorders: Yes Endocrine Disorders: Diabetes, Non-Insulin dep HEENT History of HEENT Disorders: No Loss of Vision: Denies Hearing Impairment: Denies Cancer No Psychosocial History of Psychiatric Problem: No Integumentary History of Skin or Integumenta: Yes (diabetic ulcer right foot) Blood Transfusions History of Blood Disorders: No Adverse Reaction to a Blood Tr: No Family Medical History Significant Family History: No Pertinent Family Hx, Hypertension Family Hx: Cardiovascular disease 19 MOTHER, G8 BROTHER G8 BROTHER Completed stroke 19 MOTHER, Diabetes mellitus 19 FATHER, 19 MOTHER, G8 BROTHER G8 SISTER FH: brain tumor FH: breast cancer 19 MOTHER, FH: lung cancer FHx: peripheral neuropathy Hypertension 19 FATHER, Lung c 19 FATHER, Myocardial infarction 19 MOTHER, Neuro Review of Systems Constitutional: malaise, weakness EENTM: no symptoms reported Respiratory: dyspnea on exertion, short of breath Cardiovascular: no symptoms reported Gastrointestinal: no symptoms reported Genitourinary: no symptoms reported Physical Exam Vital Signs Vital Signs - First Documented Capillary Refill : Height, Weight, BMI Height: 5'5.00" Weight: 191lbs. 8.0oz. 86.604019tu; 31.9 BMI Method:Stated General Appearance: No Apparent Distress, WD/WN Eyes: Bilateral Eye Normal Inspection HEENT: Normal ENT Inspection Neck: Normal Inspection, Non Tender Respiratory: Decreased Breath Sounds, Wheezing Cardiovascular: Regular Rate, Rhythm, No Murmur Gastrointestinal: Non Tender, Soft Assessment/Plan Assessment and Plan Pneumonia. Diabetes. Hypertension. Coronary artery disease. Peripheral artery disease Admission Diagnosis Admission Status: Inpatient Order (span 2 midnights) Reason for Inpatient Admission: Failure to Palpation treatment. Pneumonia. Short of breath. Weakness. Diabetes Clinical Quality Measures DVT/VTE Risk/Contraindication: Risk Factor Score Per Nursin RFS Level Per Nursing on Admit: 4+=Very High NINO SUTTON DO Nov 11, 2018 08:25
[2018-11-11] MEDS ORDERED: ATOR80TA76 PO (11:19)
[2018-11-11] MEDS ORDERED: INSU100V6 SQ (11:19)
[2018-11-11] MEDS ORDERED: CEPH-507 PO (11:19)
[2018-11-11] MEDS ORDERED: ONDA8TAB13 PO (11:19)
--- NOTE | 2018-11-11 11:22 | NUR ---
CALLED REJI FOR A LIST OF RECENTLY FILLED MEDICATIONS, I WENT OVER THE LIST WITH THE PATIENT AND SHE VERIFIED HOW SHE TAKES THEM. REJI FILLED: 08-23-18 LANTUS VAIL 10 UNITS DAILY (STATES SHE USES 20 UNITS HS) 10-20-18 ENALAPRIL 20MG BID #60 10-20-18 METFORMIN ER 500MG #120 4 HS (STATES SHE TAKES 2 BID) 10-23-18 LIPITOR 80MG DAILY #90 (TAKES AT HS) 10-27-18 TOPROL XL 200MG DAILY #30 10-27-18 PLAVIX 75MG DAILY #30 10-27-18 PROTONIX 20MG DAILY #30 10-27-18 GLIMEPIRIDE 4MG 2 AM #60 10-28-18 TRAMADOL 50MG TID #90 10-28-18 HYDRALAZINE 50MG TID #90 11-08-18 KEFLEX 500MG TID #21 11-08-18 ZOFRAN ODT 8MG TID PRN #15 11-11-18 GABAPENTIN 300MG 3 TID #270 SHE TAKES ASPIRIN 81MG DAILY OTC
[2018-11-11] MEDS: BENZONATATE 100 MG (TESSALON) CAPSULE PO PRN (11:31)
[2018-11-11] MEDS: metFORMIN 500 MG (GLUCOPHAGE) TAB PO SCH (16:54)
[2018-11-11] MEDS: cefTRIAXone 1,000 MG/SWFI 10 ML IV PUSH IV SCH ×2 (16:54)
[2018-11-11] MEDS: AZITHROMYCIN 500 MG/NS 250 ML IVPB IV SCH ×2 (16:54)
[2018-11-11] MEDS: ATORVASTATIN 80 MG (LIPITOR) TABLET PO SCH (21:33)
[2018-11-12 03:48] VITALS: BP 159/70
[2018-11-12] MEDS: inSUlin ASPART (NovoLOG) 1 UNIT/0.01 ML (CHARGE PER UNIT) SC SCH ×2 (05:22→11:38)
[2018-11-12] MEDS: metFORMIN 500 MG (GLUCOPHAGE) TAB PO SCH (06:00)
[2018-11-12 06:46] LABS: BASOPHILS % (AUTO) 1 % (0-10); EOSINOPHILS # (AUTO) 0.1 10^3/uL (0.0-0.3); EOSINOPHILS % (AUTO) 2 % (0-10); HEMATOCRIT 33 % (35-52); LYMPHOCYTES # (AUTO) 2.1 X 10^3 (1.0-4.0); LYMPHOCYTES % (AUTO) 42 % (12-44); MEAN CORPUSCULAR HEMOGLOBIN 26 PG (25-34); MEAN CORPUSCULAR HGB CONC 30 G/DL (32-36); MEAN CORPUSCULAR VOLUME 87 FL (80-99); MEAN PLATELET VOLUME 9.7 FL (7.4-10.4); MONOCYTES # (AUTO) 0.5 X 10^3 (0.0-1.0); MONOCYTES % (AUTO) 10 % (0-12); NEUTROPHILS # (AUTO) 2.2 X 10^3 (1.8-7.8); NEUTROPHILS % (AUTO) 46 % (42-75); PLATELET COUNT 208 10^3/uL (130-400); RED CELL DISTRIBUTION WIDTH 15.2 % (10.0-14.5); WHITE BLOOD COUNT 4.9 10^3/uL (4.3-11.0)
[2018-11-12] MEDS: RT-ALBUTEROL SULF 2.5 MG/3 ML PRE-MIX VIAL INH SCH ×2 (06:50→11:05)
[2018-11-12 07:02] LABS: BUN/CREATININE RATIO 16; CARBON DIOXIDE 24 MMOL/L (21-32); CHLORIDE 105 MMOL/L (98-107); CREATININE SERUM 0.67 MG/DL (0.60-1.30); GFR ESTIMATED > 60; GLUCOSE 136 MG/DL (70-105); POTASSIUM 3.6 MMOL/L (3.6-5.0); SODIUM 140 MMOL/L (135-145)
[2018-11-12 08:00] VITALS: BP 143/97
--- NOTE | 2018-11-12 08:02 | Progress Note (SOAP) ---
Subjective Time Seen by a Provider: 08:00 Subjective/Events-last exam Feeling better today. Patient breathing better. Patient wants to go home. Plan to discharge today but waiting a chest x-ray report Objective Exam Vital Signs Date Time Temp Pulse Resp B/P (MAP) Pulse Ox O2 Delivery O2 Flow Rate FiO2 11/12/18 06:50 97 Room Air 11/12/18 03:48 98.7 76 18 159/70 (99) 95 Room Air 11/11/18 23:04 98.8 71 18 158/82 (107) 98 Room Air 11/11/18 20:00 Room Air 11/11/18 19:53 96 Room Air 11/11/18 19:29 99.3 74 18 159/70 (99) 98 Room Air 11/11/18 16:38 98.8 86 18 178/79 (112) 94 Room Air 11/11/18 15:03 94 Room Air 11/11/18 12:00 98.8 73 18 163/73 (103) 95 Room Air 11/11/18 10:35 93 Room Air I & O 11/12/18 07:00 Intake Total 2090 ml Output Total 3400 ml Balance -1310 ml Capillary Refill : General Appearance: No Apparent Distress, WD/WN HEENT: Normal ENT Inspection Neck: Full Range of Motion, Non Tender Respiratory: Lungs Clear, No Accessory Muscle Use, No Respiratory Distress Cardiovascular: Regular Rate, Rhythm Gastrointestinal: non tender, soft Results Lab Laboratory Tests 11/12/18 06:31 Laboratory Tests 11/11/18 11:02: Glucometer 275H 11/11/18 16:17: Glucometer 301H 11/11/18 21:19: Glucometer 299H 11/12/18 05:22: Glucometer 129H 11/12/18 06:31: White Blood Count 4.9, Red Blood Count 3.79L, Hemoglobin 10.0L, Hematocrit 33L, Mean Corpuscular Volume 87, Mean Corpuscular Hemoglobin 26, Mean Corpuscular Hemoglobin Concent 30L, Red Cell Distribution Width 15.2H, Platelet Count 208, Mean Platelet Volume 9.7, Neutrophils (%) (Auto) 46, Lymphocytes (%) (Auto) 42, Monocytes (%) (Auto) 10, Eosinophils (%) (Auto) 2, Basophils (%) (Auto) 1, Neutrophils # (Auto) 2.2, Lymphocytes # (Auto) 2.1, Monocytes # (Auto) 0.5, Eosinophils # (Auto) 0.1, Basophils # (Auto) 0.0, Sodium Level 140, Potassium Level 3.6, Chloride Level 105, Carbon Dioxide Level 24, Anion Gap 11, Blood Urea Nitrogen 11, Creatinine 0.67, Estimat Glomerular Filtration Rate > 60, BUN/ Creatinine Ratio 16, Glucose Level 136H, Calcium Level 9.0 Assessment/Plan Assessment/Plan Assess & Plan/Chief Complaint Pneumonia. Diabetes. Patient feeling better and doing better. Plan to discharge today on Zithromax area Clinical Quality Measures Admission Status Admission Dx Pneumonia. Diabetes. Hypertension. Coronary artery disease. Peripheral artery disease DVT/VTE Risk/Contraindication: Risk Factor Score Per Nursin RFS Level Per Nursing on Admit: 4+=Very High Contraindications-Pharm: Other *list below* TAYO SUTTON DO Nov 12, 2018 08:02
[2018-11-12] MEDS: PANTOPRAZOLE 20 MG TABLET (PROTONIX) PO SCH (09:34)
[2018-11-12] MEDS: amLODIPine 10 MG (NORVASC) TAB PO SCH (09:34)
[2018-11-12] MEDS: BENZONATATE 100 MG (TESSALON) CAPSULE PO PRN (09:34)
[2018-11-12] MEDS: hydrALAZINE (APRESOLINE) 25 MG TAB PO SCH (09:34)
[2018-11-12] MEDS: GABAPENTIN 300 MG (NEURONTIN) CAP PO SCH (09:34)
[2018-11-12] MEDS: ENALAPRIL 10 MG (VASOTEC) TAB PO SCH (09:35)
[2018-11-12] MEDS: CLOPIDOGREL 75 MG (PLAVIX) TABLET PO SCH (09:35)
--- NOTE | 2018-11-12 10:49 | Diagnostic Imaging Report ---
EXAM: PA and lateral chest at 9:20 a.m. INDICATION: Pneumonia FINDINGS: The prior exam of 11/10/2018 noted left lower lobe pneumonia/atelectasis. On this study the left lung base does seem somewhat better aerated. There still some residual pneumonia/atelectasis present however. The left upper lung and right lung remain generally clear. There is still no sign of a pleural effusion. The heart is stable in size. The mediastinum is not widened. The osseous structures are intact. IMPRESSION: 1. The appearance of the chest has improved somewhat as the left lung base does seem better aerated. However, there is still some residual pneumonia/atelectasis present. 2. There is no acute cardiopulmonary abnormality noted otherwise. Dictated by: Dictated on workstation # [id number]
[2018-11-12] MEDS ORDERED: AZIT500T2 PO (11:51)
[2018-11-12] MEDS ORDERED: RT-ALBUINH INH (11:51)
[2018-11-12] MEDS: NS IV 1000 ML 1,000 ML IV SCH (12:40)
[2018-11-12 12:53] VITALS: BP 143/97
[2018-11-12] MEDS ORDERED: AZITHROMYCIN 250 MG TAB (ZITHROMAX) PO SCH (17:00)
--- NOTE | 2018-11-15 07:28 | Discharge Summary ---
Diagnosis/Chief Complaint Date of Admission Nov 10, 2018 at 16:47 Date of Discharge Nov 12, 2018 at 13:05 Discharge Time: 07:26 Discharge Diagnosis Pneumonia outpatient treatment unsuccessful. Short of breath. Weakness. Diabetes. Hypertension. Hypoglycemia. Anemia. Coronary artery disease. Peripheral artery disease. Hypokalemia Reason Hospital Visit Patient treated for pneumonia as outpatient. This was not successful. Patient needed IV antibiotics. Patient showed up at the office yesterday feeling worse trouble breathing short of breath. Patient feeling terrible. Chest x-ray shows pneumonia. Patient admitted for pneumonia unsuccessful as outpatient. Patient and known diabetic. Patient has coronary artery disease Discharge Summary Discharge Physical Examination Allergies: Coded Allergies: No Known Drug Allergies (Unverified , 01/19/11) Vitals & I&Os Vital Signs Date Time Temp Pulse Resp B/P (MAP) Pulse Ox O2 Delivery O2 Flow Rate FiO2 11/12/18 12:53 118 18 143/97 92 Room Air 11/12/18 08:00 97.8 Hospital Course Patient hospital did better. Patient breathing better. Patient not weak. Patient wanted to go home Labs (last 24 hrs) Laboratory Tests 11/10/18 17:39: White Blood Count 4.0L, Red Blood Count 4.01L, Hemoglobin 10.7L, Hematocrit 35, Mean Corpuscular Volume 87, Mean Corpuscular Hemoglobin 27, Mean Corpuscular Hemoglobin Concent 31L, Red Cell Distribution Width 15.2H, Platelet Count 212, Mean Platelet Volume 10.2, Neutrophils (%) (Auto) 55, Lymphocytes (%) (Auto) 29 , Monocytes (%) (Auto) 16H, Eosinophils (%) (Auto) 0, Basophils (%) (Auto) 0, Neutrophils # (Auto) 2.2, Lymphocytes # (Auto) 1.2, Monocytes # (Auto) 0.6, Eosinophils # (Auto) 0.0, Basophils # (Auto) 0.0, Sodium Level 137, Potassium Level 3.4L, Chloride Level 100, Carbon Dioxide Level 23, Anion Gap 14, Blood Urea Nitrogen 17, Creatinine 0.76, Estimat Glomerular Filtration Rate > 60, BUN/ Creatinine Ratio 22, Glucose Level 141H, Calcium Level 9.3, Corrected Calcium 9.5, Total Bilirubin 0.3, Aspartate Amino Transf (AST/SGOT) 28, Alanine Aminotransferase (ALT/SGPT) 20, Alkaline Phosphatase 61, Total Protein 6.7, Albumin 3.7 11/11/18 05:32: Glucometer 47*L 11/11/18 06:31: Glucometer 146H 11/11/18 06:53: White Blood Count 4.8, Red Blood Count 3.75L, Hemoglobin 10.0L, Hematocrit 32L, Mean Corpuscular Volume 86, Mean Corpuscular Hemoglobin 27, Mean Corpuscular Hemoglobin Concent 31L, Red Cell Distribution Width 15.4H, Platelet Count 202, Mean Platelet Volume 9.8, Neutrophils (%) (Auto) 50, Lymphocytes (%) (Auto) 36, Monocytes (%) (Auto) 14H, Eosinophils (%) (Auto) 0, Basophils (%) (Auto) 0, Neutrophils # (Auto) 2.4, Lymphocytes # (Auto) 1.7, Monocytes # (Auto) 0.7, Eosinophils # (Auto) 0.0, Basophils # (Auto) 0.0, Sodium Level 138, Potassium Level 3.1L, Chloride Level 104, Carbon Dioxide Level 23, Anion Gap 11, Blood Urea Nitrogen 14, Creatinine 0.72, Estimat Glomerular Filtration Rate > 60, BUN/ Creatinine Ratio 19, Glucose Level 152H, Calcium Level 8.7, Corrected Calcium 9.2, Total Bilirubin 0.2, Aspartate Amino Transf (AST/SGOT) 30, Alanine Aminotransferase (ALT/SGPT) 19, Alkaline Phosphatase 57, Total Protein 6.3L, Albumin 3.4, Thyroid Stimulating Hormone (TSH) 1.41 11/11/18 11:02: Glucometer 275H 11/11/18 16:17: Glucometer 301H 11/11/18 21:19: Glucometer 299H 11/12/18 05:22: Glucometer 129H 11/12/18 06:31: White Blood Count 4.9, Red Blood Count 3.79L, Hemoglobin 10.0L, Hematocrit 33L, Mean Corpuscular Volume 87, Mean Corpuscular Hemoglobin 26, Mean Corpuscular Hemoglobin Concent 30L, Red Cell Distribution Width 15.2H, Platelet Count 208, Mean Platelet Volume 9.7, Neutrophils (%) (Auto) 46, Lymphocytes (%) (Auto) 42, Monocytes (%) (Auto) 10, Eosinophils (%) (Auto) 2, Basophils (%) (Auto) 1, Neutrophils # (Auto) 2.2, Lymphocytes # (Auto) 2.1, Monocytes # (Auto) 0.5, Eosinophils # (Auto) 0.1, Basophils # (Auto) 0.0, Sodium Level 140, Potassium Level 3.6, Chloride Level 105, Carbon Dioxide Level 24, Anion Gap 11, Blood Urea Nitrogen 11, Creatinine 0.67, Estimat Glomerular Filtration Rate > 60, BUN/ Creatinine Ratio 16, Glucose Level 136H, Calcium Level 9.0 11/12/18 11:37: Glucometer 187H Laboratory Tests 11/10/18 17:39 11/11/18 06:53 11/12/18 06:31 Pending Labs Laboratory Tests 11/10/18 17:39: White Blood Count 4.0, Red Blood Count 4.01, Hemoglobin 10.7, Hematocrit 35, Mean Corpuscular Volume 87, Mean Corpuscular Hemoglobin 27, Mean Corpuscular Hemoglobin Concent 31, Red Cell Distribution Width 15.2, Platelet Count 212, Mean Platelet Volume 10.2, Neutrophils (%) (Auto) 55, Lymphocytes (%) (Auto) 29 , Monocytes (%) (Auto) 16, Eosinophils (%) (Auto) 0, Basophils (%) (Auto) 0, Neutrophils # (Auto) 2.2, Lymphocytes # (Auto) 1.2, Monocytes # (Auto) 0.6, Eosinophils # (Auto) 0.0, Basophils # (Auto) 0.0, Sodium Level 137, Potassium Level 3.4, Chloride Level 100, Carbon Dioxide Level 23, Anion Gap 14, Blood Urea Nitrogen 17, Creatinine 0.76, Estimat Glomerular Filtration Rate > 60, BUN/ Creatinine Ratio 22, Glucose Level 141, Calcium Level 9.3, Corrected Calcium 9.5 , Total Bilirubin 0.3, Aspartate Amino Transf (AST/SGOT) 28, Alanine Aminotransferase (ALT/SGPT) 20, Alkaline Phosphatase 61, Total Protein 6.7, Albumin 3.7 11/11/18 05:32: Glucometer 47 11/11/18 06:31: Glucometer 146 11/11/18 06:53: White Blood Count 4.8, Red Blood Count 3.75, Hemoglobin 10.0, Hematocrit 32, Mean Corpuscular Volume 86, Mean Corpuscular Hemoglobin 27, Mean Corpuscular Hemoglobin Concent 31, Red Cell Distribution Width 15.4, Platelet Count 202, Mean Platelet Volume 9.8, Neutrophils (%) (Auto) 50, Lymphocytes (%) (Auto) 36, Monocytes (%) (Auto) 14, Eosinophils (%) (Auto) 0, Basophils (%) (Auto) 0, Neutrophils # (Auto) 2.4, Lymphocytes # (Auto) 1.7, Monocytes # (Auto) 0.7, Eosinophils # (Auto) 0.0, Basophils # (Auto) 0.0, Sodium Level 138, Potassium Level 3.1, Chloride Level 104, Carbon Dioxide Level 23, Anion Gap 11, Blood Urea Nitrogen 14, Creatinine 0.72, Estimat Glomerular Filtration Rate > 60, BUN/ Creatinine Ratio 19, Glucose Level 152, Calcium Level 8.7, Corrected Calcium 9.2 , Total Bilirubin 0.2, Aspartate Amino Transf (AST/SGOT) 30, Alanine Aminotransferase (ALT/SGPT) 19, Alkaline Phosphatase 57, Total Protein 6.3, Albumin 3.4, Thyroid Stimulating Hormone (TSH) 1.41 11/11/18 11:02: Glucometer 275 11/11/18 16:17: Glucometer 301 11/11/18 21:19: Glucometer 299 11/12/18 05:22: Glucometer 129 11/12/18 06:31: White Blood Count 4.9, Red Blood Count 3.79, Hemoglobin 10.0, Hematocrit 33, Mean Corpuscular Volume 87, Mean Corpuscular Hemoglobin 26, Mean Corpuscular Hemoglobin Concent 30, Red Cell Distribution Width 15.2, Platelet Count 208, Mean Platelet Volume 9.7, Neutrophils (%) (Auto) 46, Lymphocytes (%) (Auto) 42, Monocytes (%) (Auto) 10, Eosinophils (%) (Auto) 2, Basophils (%) (Auto) 1, Neutrophils # (Auto) 2.2, Lymphocytes # (Auto) 2.1, Monocytes # (Auto) 0.5, Eosinophils # (Auto) 0.1, Basophils # (Auto) 0.0, Sodium Level 140, Potassium Level 3.6, Chloride Level 105, Carbon Dioxide Level 24, Anion Gap 11, Blood Urea Nitrogen 11, Creatinine 0.67, Estimat Glomerular Filtration Rate > 60, BUN/ Creatinine Ratio 16, Glucose Level 136, Calcium Level 9.0 11/12/18 11:37: Glucometer 187 Discussion & Recommendations Patient sent home on antibiotic. Patient sent home on ProAir HFA. Patient be followed up in the office Discharge Home Medications: Active Scripts Active Ventolin Hfa (Albuterol Sulfate) 1 Puff Puff 2 Puff INH Q4H 10 Days 1 PUFF = 90 MCG Zithromax Tri-Rigo (Azithromycin) 500 Mg Tablet 500 Mg PO DAILY Reported Lantus (Insulin Glargine,Hum.rec.anlog) 100 Unit/1 Ml Vial 20 Unit SQ HS LAST FILLED 1 VIAL 08-23-18 Ondansetron Odt (Ondansetron) 8 Mg Tab.rapdis 8 Mg PO TID PRN Keflex (Cephalexin) 500 Mg Capsule 500 Mg PO TID 7 DAY SUPPLY FILLED 11-08-18 Atorvastatin Calcium 80 Mg Tablet 80 Mg PO HS Aspirin 81 Mg Tab.chew 81 Mg PO DAILY Protonix (Pantoprazole Sodium) 20 Mg Tablet.dr 20 Mg PO DAILY Plavix (Clopidogrel Bisulfate) 75 Mg Tablet 75 Mg PO DAILY Hydralazine HCl 50 Mg Tablet 50 Mg PO 0800,1500,2100 Metoprolol Succinate 200 Mg Tab.er.24h 200 Mg PO DAILY Enalapril Maleate 20 Mg Tablet 20 Mg PO BID Glimepiride 4 Mg Tablet 8 Mg PO DAILY TAKES 2 (4 MG) TABLETS Gabapentin 300 Mg Capsule 900 Mg PO 0800,1500,2100 TAKES 3 (300 MG) CAPSULES Metformin HCl ER (Metformin HCl) 500 Mg Tab.er.24 1,000 Mg PO BID TAKES 2 (500 MG) TABLETS Tramadol HCl 50 Mg Tablet 50 Mg PO 0800,1500,2100 Instructions to patient/family Please see electronic discharge instructions given to patient. Clinical Quality Measures DVT/VTE Risk/Contraindication: Risk Factor Score Per Nursin RFS Level Per Nursing on Admit: 4+=Very High Contraindications-Pharm: Other *list below* TAYO SUTTON DO Nov 15, 2018 07:28
== END 2018-11-12 13:05 | disposition home or self-care (01) | DRG 195 ==
LOC: 4TH 16:47
PROVIDERS: ADMIT Family Medicine; ATTEND Family Medicine
DX: J18.9 Pneumonia, unspecified organism (principal); E11.649 Type 2 diabetes mellitus with hypoglycemia without coma; I25.10 Atherosclerotic heart disease of native coronary artery without angina pectoris; K21.9 Gastro-esophageal reflux disease without esophagitis; M79.7 Fibromyalgia; I10 Essential (primary) hypertension; I73.9 Peripheral vascular disease, unspecified; D64.9 Anemia, unspecified; E87.6 Hypokalemia; Z79.84 Long term (current) use of oral hypoglycemic drugs
CPT/HCPCS: 36415; 71046; 80048; 80053; 82962; 84443; 85025; 94640; 94760

== ENCOUNTER → 2018-11-10 | Outpatient (CLI) | payer OTHER ==
[~2018-11-10] MED LIST changes: +ATOR80TA76 PO; +INSU100V6 SQ; +ONDA8TAB13 PO
[2018-11-10 11:09] LABS: BASOPHILS % (AUTO) 0 % (0-10); EOSINOPHILS % (AUTO) 0 % (0-10); HEMATOCRIT 34 % (35-52); HEMOGLOBIN 10.6 G/DL (11.5-16.0); LYMPHOCYTES # (AUTO) 1.2 X 10^3 (1.0-4.0); LYMPHOCYTES % (AUTO) 23 % (12-44); MEAN CORPUSCULAR HEMOGLOBIN 27 PG (25-34); MEAN CORPUSCULAR HGB CONC 31 G/DL (32-36); MEAN CORPUSCULAR VOLUME 86 FL (80-99); MONOCYTES # (AUTO) 0.7 X 10^3 (0.0-1.0); MONOCYTES % (AUTO) 14 % (0-12); NEUTROPHILS # (AUTO) 3.1 X 10^3 (1.8-7.8); NEUTROPHILS % (AUTO) 62 % (42-75); PLATELET COUNT 187 10^3/uL (130-400); RED CELL DISTRIBUTION WIDTH 14.9 % (10.0-14.5)
--- NOTE | 2018-11-10 11:40 | Diagnostic Imaging Report ---
EXAMINATION: PA and lateral Chest at 11:06 a.m. INDICATION: Cough. FINDINGS: The heart size is within normal limits and stable when compared to 12/04/2017. In the interval since the prior study, a small area of increased density has developed near the left lung apex. Most likely, this is due to pneumonia/atelectasis. Left upper lung and right lung are generally clear. There is no sign of a pleural effusion. The mediastinum is not widened. The osseous structures are intact. IMPRESSION: 1. The appearance of the chest has worsened since the prior exam as a new small focus of pneumonia/atelectasis has developed in the left lung base. A followup exam should be considered for further evaluation. 2. There is no acute cardiopulmonary abnormality noted otherwise. Dictated by: Dictated on workstation # [id number]
== END ==
LOC: RAD 10:53
PROVIDERS: ATTEND Family Medicine
DX: R05 Cough (principal); R09.89 Other specified symptoms and signs involving the circulatory and respiratory systems
CPT/HCPCS: 36415; 71046; 85025

== ENCOUNTER → 2018-12-01 | Outpatient (CLI) | payer OTHER ==
[~2018-12-01] MED LIST changes: +ATOR80TA76 PO; +AZIT500T2 PO; +INSU100V6 SQ; +ONDA8TAB13 PO; +RT-ALBUINH INH
[2018-12-01 18:02] LABS: BASOPHILS # (AUTO) 0.1 10^3/uL (0.0-0.1); BASOPHILS % (AUTO) 1 % (0-10); EOSINOPHILS % (AUTO) 10 % (0-10); HEMATOCRIT 39 % (35-52); HEMOGLOBIN 11.9 G/DL (11.5-16.0); LYMPHOCYTES # (AUTO) 2.9 X 10^3 (1.0-4.0); LYMPHOCYTES % (AUTO) 28 % (12-44); MEAN CORPUSCULAR HEMOGLOBIN 27 PG (25-34); MEAN CORPUSCULAR HGB CONC 31 G/DL (32-36); MEAN CORPUSCULAR VOLUME 87 FL (80-99); MEAN PLATELET VOLUME 9.4 FL (7.4-10.4); MONOCYTES # (AUTO) 0.8 X 10^3 (0.0-1.0); MONOCYTES % (AUTO) 8 % (0-12); NEUTROPHILS # (AUTO) 5.4 X 10^3 (1.8-7.8); NEUTROPHILS % (AUTO) 54 % (42-75); PLATELET COUNT 270 10^3/uL (130-400); RED CELL DISTRIBUTION WIDTH 15.2 % (10.0-14.5)
[2018-12-01 18:14] LABS: ALANINE AMINOTRANSFERASE 17 U/L (0-55); ALBUMIN 4.1 GM/DL (3.2-4.5); ALKALINE PHOSPHATASE 74 U/L (40-136); AMYLASE 23 U/L (25-125); BILIRUBIN,TOTAL 0.3 MG/DL (0.1-1.0); BUN/CREATININE RATIO 28; CALCIUM 9.9 MG/DL (8.5-10.1); CARBON DIOXIDE 25 MMOL/L (21-32); CHLORIDE 102 MMOL/L (98-107); CREATININE SERUM 0.74 MG/DL (0.60-1.30); GFR ESTIMATED > 60; GLUCOSE 98 MG/DL (70-105); LIPASE 34 U/L (8-78); POTASSIUM 4.6 MMOL/L (3.6-5.0); SODIUM 140 MMOL/L (135-145)
== END ==
LOC: LAB 17:29
PROVIDERS: ATTEND Family Medicine
DX: R10.12 Left upper quadrant pain (principal)
CPT/HCPCS: 36415; 80053; 82150; 83690; 85025; 87088

== ENCOUNTER → 2018-12-03 | Outpatient (CLI) | payer OTHER ==
[~2018-12-03] MED LIST changes: +CATHETER FLUSH 10 ML SYR IV PRN; +HOLD METFORMIN - RECEIVED CONTRAST 20 ML VIAL IV SCH; +IOHEXOL 350 MG/ML 100 ML (OMNIPAQUE 350) VIAL IV ONE
--- NOTE | 2018-12-03 15:50 | Diagnostic Imaging Report ---
PROCEDURE: CT abdomen and pelvis with contrast. TECHNIQUE: Multiple contiguous axial images were obtained through the abdomen and pelvis after administration of intravenous contrast. Auto Exposure Controls were utilized during the CT exam to meet ALARA standards for radiation dose reduction. INDICATION: Severe left-sided abdominal pain and nausea for two weeks. COMPARISON: Correlation is made with prior CT from 06/07/2013. FINDINGS: Imaging through the lung bases does show some linear scarring or atelectasis in the lingula. Flash filling hemangioma in the right lobe near the dome appears stable. No other liver mass is seen. Gallbladder is contracted. No biliary ductal dilatation is seen. Pancreas and spleen are unremarkable. No adrenal mass is detected. The kidneys are unremarkable. No hydronephrosis is detected. The aorta is non-aneurysmal. No central retroperitoneal or mesenteric lymphadenopathy is seen. The bowel loops appear to be normal in caliber. The appendix is visualized in right lower quadrant and appears unremarkable. No inflammatory process is identified. There is no free fluid or fluid collection identified. The bladder and uterus are unremarkable. No pelvic lymphadenopathy is seen. The bony structures are nonacute. IMPRESSION: 1. Stable probable hemangioma involving the right lobe of the liver. 2. No acute feature in the abdomen or pelvis is identified. Dictated by: Dictated on workstation # [id number]
== END ==
LOC: RAD 14:58
PROVIDERS: ATTEND Family Medicine
DX: R10.9 Unspecified abdominal pain (principal); R11.0 Nausea
CPT/HCPCS: 74177

== ENCOUNTER → 2019-02-22 | Outpatient (CLI) | payer OTHER ==
[~2019-02-22] MED LIST changes: -CATHETER FLUSH 10 ML SYR IV PRN; -HOLD METFORMIN - RECEIVED CONTRAST 20 ML VIAL IV SCH; +INSU100I29 SQ; -IOHEXOL 350 MG/ML 100 ML (OMNIPAQUE 350) VIAL IV ONE
--- NOTE | 2019-02-23 08:58 | Diagnostic Imaging Report ---
Digital mammogram. Indication: Bilateral screening with 3 tomosynthesis and CAD. The study was compared to the prior exam of 05/19/2017 and 07/03/2015. At this time there are no current complaints. The current study was also evaluated with a Computer Aided Detection (CAD) system. FINDINGS: The fibroglandular tissue in both breasts is heterogeneously dense. This does limit the sensitivity of this exam. Overall, there does not appear to have been any significant change when compared to the prior study. No primary or secondary sign of malignancy is noted. IMPRESSION: There is no radiographic evidence for malignancy. ACR BI-RADS Category 1: Negative. Result letter will be mailed to the patient. Note: At least 10% of breast cancer is not imaged by mammography. Dictated by: Dictated on workstation # [id number]
== END ==
LOC: RAD 09:59
PROVIDERS: ATTEND Family Medicine
DX: Z12.31 Encounter for screening mammogram for malignant neoplasm of breast (principal)
CPT/HCPCS: 77067

== ENCOUNTER 2019-02-25 13:12 | Emergency (ER) | payer OTHER ==
[~2019-02-25] VITALS: Ht 166.4 cm; Wt 86.3 kg
--- NOTE | 2019-02-25 13:24 | ED Chest Pain ---
General Stated Complaint: SOB,CHEST TIGHTNESS Source: patient Exam Limitations: no limitations History of Present Illness Date Seen by Provider: Feb 25, 2019 Time Seen by Provider: 13:22 Initial Comments To ER with reports of chest tightness rated at 7 out of 10. She has an associated headache and the symptoms began last night. She denies any nausea vomiting or diaphoresis. She's had some chronic shortness of breath since before her last coronary stent placement on 02/08/[address] Kohli. She does not smoke. She took 1 baby aspirin today prior to arrival to ER. Timing/Duration: 12-24 hours Severity/Quality: moderate Location: central Radiation: no radiation Activities at Onset: none ASA po ENGINE REPAIR SUPERVISOR: No NTG SL ENGINE REPAIR SUPERVISOR: No Associated Symptoms: shortness of breath Allergies and Home Medications Allergies Coded Allergies: No Known Drug Allergies (Unverified , 01/19/11) Home Medications Aspirin 81 Mg Tab.chew, 81 MG PO DAILY, (Reported) Atorvastatin Calcium 80 Mg Tablet, 80 MG PO HS, (Reported) Clopidogrel Bisulfate 75 Mg Tablet, 75 MG PO DAILY, (Reported) Enalapril Maleate 20 Mg Tablet, 20 MG PO BID, (Reported) Gabapentin 300 Mg Capsule, 900 MG PO 0800,1500,2100, (Reported) TAKES 3 (300 MG) CAPSULES Glimepiride 4 Mg Tablet, 8 MG PO DAILY, (Reported) TAKES 2 (4 MG) TABLETS Hydralazine HCl 50 Mg Tablet, 50 MG PO 0800,1500,2100, (Reported) Insulin Detemir 100 Unit/1 Ml Insuln.pen, 21 UNIT SQ HS, (Reported) Metformin HCl 500 Mg Tab.er.24, 1,000 MG PO BID, (Reported) TAKES 2 (500 MG) TABLETS Metoprolol Succinate 200 Mg Tab.er.24h, 200 MG PO DAILY, (Reported) Pantoprazole Sodium 20 Mg Tablet.dr, 20 MG PO DAILY, (Reported) Tramadol HCl 50 Mg Tablet, 50 MG PO 0800,1500,2100, (Reported) Patient Home Medication List Home Medication List Reviewed: Yes Review of Systems Review of Systems Constitutional: see HPI EENTM: No Symptoms Reported Respiratory: See HPI, Shortness of Air Cardiovascular: See HPI, Chest Pain Gastrointestinal: No Symptoms Reported Genitourinary: No Symptoms Reported Musculoskeletal: no symptoms reported Skin: no symptoms reported Psychiatric/Neurological: No Symptoms Reported Endocrine: No Symptoms Reported Past Mspyppr-Cthief-Gscljk Hx Patient Social History Type Used: Cigarettes Former Smoker, Quit: Apr 27, 1990 2nd Hand Smoke Exposure: Yes Recent Foreign Travel: No Contact w/Someone Who Travel: No Recent Hopitalizations: No Immunizations Up To Date Tetanus Booster (TDap): Unknown PED Vaccines UTD: No Date of Pneumonia Vaccine: Oct 15, 2018 Date of Influenza Vaccine: Jun 14, 2018 Seasonal Allergies Seasonal Allergies: No Past Medical History Surgeries: Yes (right leg vein sx x2) Tubal Ligation Respiratory: No Currently Using CPAP: No Currently Using BIPAP: No Cardiac: Yes (STENTS) Hypertension, Peripheral Vascular Neurological: Yes Neuropathy 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 Disorders: No Female 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 Disorders: Denies Genitourinary: Yes UTI-Chronic Gastrointestinal: Yes Gastroesophageal Reflux Musculoskeletal: Yes Fibromyalgia Endocrine: Yes Diabetes, Non-Insulin dep HEENT: No Loss of Vision: Denies Hearing Impairment: Denies Cancer: No Psychosocial: No Integumentary: Yes (diabetic ulcer right foot) Blood Disorders: No Adverse Reaction/Blood Tranf: No Family Medical History Cardiovascular disease 19 MOTHER, G8 BROTHER G8 BROTHER Completed stroke 19 MOTHER, Diabetes mellitus 19 FATHER, 19 MOTHER, G8 BROTHER G8 SISTER FH: brain tumor FH: breast cancer 19 MOTHER, FH: lung cancer FHx: peripheral neuropathy Hypertension 19 FATHER, Lung c 19 FATHER, Myocardial infarction 19 MOTHER, Neuro No Pertinent Family Hx, Hypertension Physical Exam Vital Signs Vital Signs - First Documented 02/25/19 13:23 Temp 97.4 Pulse 67 Resp 20 B/P (MAP) 170/63 (98) Pulse Ox 98 O2 Delivery Room Air Capillary Refill : Height, Weight, BMI Height: 5'5.50" Weight: 196lbs. 0.0oz. 88.772582kf; 32.0 BMI Method:Stated General Appearance: No Apparent Distress, WD/WN HEENT: PERRL/EOMI, TMs Normal Neck: Full Range of Motion, Normal Inspection Respiratory: Lungs Clear, Normal Breath Sounds, No Accessory Muscle Use, No Respiratory Distress Cardiovascular: Regular Rate, Rhythm, Normal Peripheral Pulses Gastrointestinal: Normal Bowel Sounds, Non Tender, Soft Neurologic/Psychiatric: Alert, Oriented x3 Skin: Normal Color, Warm/Dry Progress/Results/Core Measures Results/Orders Lab Results Laboratory Tests Test 02/25/19 13:19 02/25/19 15:21 Range/Units White Blood Count 8.5 4.3-11.0 10^3/uL Red Blood Count 3.85 L 4.35-5.85 10^6/uL Hemoglobin 10.6 L 11.5-16.0 G/DL Hematocrit 33 L 35-52 % Mean Corpuscular Volume 87 80-99 FL Mean Corpuscular Hemoglobin 28 25-34 PG Mean Corpuscular Hemoglobin Concent 32 32-36 G/DL Red Cell Distribution Width 15.2 H 10.0-14.5 % Platelet Count 292 130-400 10^3/uL Mean Platelet Volume 9.9 7.4-10.4 FL Neutrophils (%) (Auto) 63 42-75 % Lymphocytes (%) (Auto) 25 12-44 % Monocytes (%) (Auto) 10 0-12 % Eosinophils (%) (Auto) 2 0-10 % Basophils (%) (Auto) 1 0-10 % Neutrophils # (Auto) 5.4 1.8-7.8 X 10^3 Lymphocytes # (Auto) 2.1 1.0-4.0 X 10^3 Monocytes # (Auto) 0.8 0.0-1.0 X 10^3 Eosinophils # (Auto) 0.2 0.0-0.3 10^3/uL Basophils # (Auto) 0.0 0.0-0.1 10^3/uL Prothrombin Time 13.8 12.2-14.7 SEC INR Comment 1.0 0.8-1.4 Activated Partial Thromboplast Time 36 H 24-35 SEC Sodium Level 137 135-145 MMOL/L Potassium Level 4.0 3.6-5.0 MMOL/L Chloride Level 104 98-107 MMOL/L Carbon Dioxide Level 25 21-32 MMOL/L Anion Gap 8 5-14 MMOL/L Blood Urea Nitrogen 15 7-18 MG/DL Creatinine 0.71 0.60-1.30 MG/DL Estimat Glomerular Filtration Rate > 60 BUN/Creatinine Ratio 21 Glucose Level 164 H 70-105 MG/DL Calcium Level 9.6 8.5-10.1 MG/DL Corrected Calcium 9.6 8.5-10.1 MG/DL Magnesium Level 1.6 L 1.8-2.4 MG/DL Total Bilirubin 0.4 0.1-1.0 MG/DL Aspartate Amino Transf (AST/SGOT) 16 5-34 U/L Alanine Aminotransferase (ALT/SGPT) 21 0-55 U/L Alkaline Phosphatase 84 40-136 U/L Myoglobin 32.5 10.0-92.0 NG/ML Troponin I < 0.028 < 0.028 <0.028 NG/ML B-Type Natriuretic Peptide 103.0 H <100.0 PG/ML Total Protein 6.8 6.4-8.2 GM/DL Albumin 4.0 3.2-4.5 GM/DL My Orders Orders - DEBBIE TAYLOR RN CLINICAL APPEALS Cbc With Automated Diff (02/25/19:19) Magnesium (02/25/19 13:19) Chest 1 View, Ap/Pa Only (02/25/19:19) Cardiac Profile 1 (02/25/19 13:19) Comprehensive Metabolic Panel (02/25/19 13:19) Myoglobin Serum (02/25/19 13:19) Protime With Inr (02/25/19:19) Partial Thromboplastin Time (02/25/19 13:19) O2 (02/25/19 13:19) Monitor-Rhythm Ecg Trace Only (02/25/19 13:19) Lipid Panel (02/26/19 06:00) Ed Iv/Invasive Line Start (02/25/19 13:19) BNP (02/25/19 13:19) Nitroglycerin 0.4 Mg Btl 25's (Nitrostat (02/25/19 13:30) Aspirin Chewable Tablet (Baby Aspirin Ch (02/25/19 13:30) Troponin I (02/25/19 15:30) Fentanyl Injection (Sublimaze Injection (02/25/19 15:15) Ekg Tracing (02/25/19 15:15) Medications Given in ED Current Medications Medications Dose Ordered Sig/[place] Route Start Time Stop Time Status Last Admin Dose Admin Aspirin 243 mg ONCE ONCE PO 02/25/19 13:30 02/25/19 13:31 DC 02/25/19 13:36 243 MG Fentanyl Citrate 50 mcg ONCE ONCE IVP 02/25/19 15:15 02/25/19 15:16 DC 02/25/19 15:12 50 MCG Nitroglycerin 0.4 mg UD PRN SL 02/25/19 13:30 02/25/19 14:20 0.4 MG Vital Signs/I&O 02/25/19 02/25/19 13:23 13:23 Temp 97.4 Pulse 67 Resp 20 B/P (MAP) 170/63 (98) Pulse Ox 98 O2 Delivery Room Air Departure Communication (Admissions) 1609-Dr Ibrahim has seen ekg and cath report. Agrees with dc to home if repeat trop is negative. 1458-patient's chest pain is now gone. The headache persists. I'll order fentanyl for that. Initial troponin negative. I'll repeat that at the 2 hour stella. Then discussed with cardiology. Impression Primary Impression: CAD (coronary artery disease) Additional Impression: Chest pain Disposition: 01 HOME, SELF-CARE Condition: Stable Departure-Patient Inst. Referrals: TAYO SUTTON DO (PCP/Family) Primary Care Physician DEBBIE TAYLOR APRN Feb 25, 2019 13:24
[2019-02-25] MEDS ORDERED: ASPIRIN 81 MG CHEW (CHILDREN'S ASA) PO ONE (13:30)
[2019-02-25] MEDS: NITROGLYCERIN 0.4 MG SL TABS BTL 25'S SL PRN ×2 (13:36→14:20)
[2019-02-25 13:39] LABS: BASOPHILS % (AUTO) 1 % (0-10); EOSINOPHILS # (AUTO) 0.2 10^3/uL (0.0-0.3); EOSINOPHILS % (AUTO) 2 % (0-10); HEMATOCRIT 33 % (35-52); HEMOGLOBIN 10.6 G/DL (11.5-16.0); LYMPHOCYTES # (AUTO) 2.1 X 10^3 (1.0-4.0); LYMPHOCYTES % (AUTO) 25 % (12-44); MEAN CORPUSCULAR HEMOGLOBIN 28 PG (25-34); MEAN CORPUSCULAR HGB CONC 32 G/DL (32-36); MEAN CORPUSCULAR VOLUME 87 FL (80-99); MEAN PLATELET VOLUME 9.9 FL (7.4-10.4); MONOCYTES # (AUTO) 0.8 X 10^3 (0.0-1.0); MONOCYTES % (AUTO) 10 % (0-12); NEUTROPHILS # (AUTO) 5.4 X 10^3 (1.8-7.8); NEUTROPHILS % (AUTO) 63 % (42-75); PLATELET COUNT 292 10^3/uL (130-400); RED CELL DISTRIBUTION WIDTH 15.2 % (10.0-14.5); WHITE BLOOD COUNT 8.5 10^3/uL (4.3-11.0)
[2019-02-25 13:52] LABS: PROTHROMBIN TIME PATIENT 13.8 SEC (12.2-14.7)
[2019-02-25 13:54] LABS: ALANINE AMINOTRANSFERASE 21 U/L (0-55); ALKALINE PHOSPHATASE 84 U/L (40-136); BILIRUBIN,TOTAL 0.4 MG/DL (0.1-1.0); BUN/CREATININE RATIO 21; CALCIUM 9.6 MG/DL (8.5-10.1); CARBON DIOXIDE 25 MMOL/L (21-32); CHLORIDE 104 MMOL/L (98-107); CREATININE SERUM 0.71 MG/DL (0.60-1.30); GFR ESTIMATED > 60; GLUCOSE 164 MG/DL (70-105); MAGNESIUM 1.6 MG/DL (1.8-2.4); SODIUM 137 MMOL/L (135-145); TOTAL PROTEIN 6.8 GM/DL (6.4-8.2)
--- NOTE | 2019-02-25 14:01 | Diagnostic Imaging Report ---
INDICATION: Shortness of breath and chest discomfort. PA chest obtained at 1:30 p.m. and compared to 11/12/2018. FINDINGS: Heart and mediastinal silhouette are normal in appearance. The lungs are clear. There is no pneumothorax or pleural fluid. IMPRESSION: Negative chest. Dictated by: Dictated on workstation # [id number]
[2019-02-25] MEDS ORDERED: fentaNYL INJECTION 100 MCG/2 ML AMP IVP ONE (15:15)
[2019-02-25 16:17] VITALS: BP 141/63
== END 2019-02-25 16:17 | disposition home or self-care (01) ==
LOC: EDUNIT# 13:12 → ER 13:13
DX: I25.10 Atherosclerotic heart disease of native coronary artery without angina pectoris (principal); R07.89 Other chest pain; I10 Essential (primary) hypertension; I73.9 Peripheral vascular disease, unspecified; E11.40 Type 2 diabetes mellitus with diabetic neuropathy, unspecified; K21.9 Gastro-esophageal reflux disease without esophagitis; E11.621 Type 2 diabetes mellitus with foot ulcer; L97.509 Non-pressure chronic ulcer of other part of unspecified foot with unspecified severity; Z87.440 Personal history of urinary (tract) infections; Z95.5 Presence of coronary angioplasty implant and graft; Z79.82 Long term (current) use of aspirin; Z82.49 Family history of ischemic heart disease and other diseases of the circulatory system; Z80.1 Family history of malignant neoplasm of trachea, bronchus and lung; Z80.3 Family history of malignant neoplasm of breast; Z79.4 Long term (current) use of insulin; Z79.02 Long term (current) use of antithrombotics/antiplatelets; Z87.891 Personal history of nicotine dependence; Z98.51 Tubal ligation status
CPT/HCPCS: 36415; 71045; 80053; 83735; 83874; 83880; 84484; 85025; 85610; 85730; 93005; 93041

== ENCOUNTER 2019-03-08 09:40 | Day surgery (SDC) | payer OTHER ==
[2019-03-08] VITALS (13 sets, daily range): BP systolic 137–175; BP diastolic 56–91
[~2019-03-08] VITALS: Ht 166.4 cm; Wt 88.5 kg
[2019-03-08] MEDS ORDERED: NS IV 1000 ML 1,000 ML ONE (09:51)
[2019-03-08 10:16] LABS: HEMOGLOBIN 11.2 G/DL (11.5-16.0); MEAN PLATELET VOLUME 10.2 FL (7.4-10.4); RED CELL DISTRIBUTION WIDTH 14.6 % (10.0-14.5); WHITE BLOOD COUNT 8.6 10^3/uL (4.3-11.0)
[2019-03-08 10:29] LABS: INR 0.9 (0.8-1.4); PROTHROMBIN TIME PATIENT 12.4 SEC (12.2-14.7)
[2019-03-08] MEDS ORDERED: IPRA4AER IH (10:32)
[2019-03-08 10:39] LABS: ALANINE AMINOTRANSFERASE 26 U/L (0-55); ALBUMIN 4.1 GM/DL (3.2-4.5); ALKALINE PHOSPHATASE 82 U/L (40-136); BILIRUBIN,TOTAL 0.4 MG/DL (0.1-1.0); BUN/CREATININE RATIO 24; CALCIUM 9.6 MG/DL (8.5-10.1); CARBON DIOXIDE 20 MMOL/L (21-32); CHLORIDE 102 MMOL/L (98-107); CHOLESTEROL 136 MG/DL (< 200); CREATININE SERUM 0.86 MG/DL (0.60-1.30); GFR ESTIMATED > 60; GLUCOSE 366 MG/DL (70-105); HDL CHOLESTEROL 36 MG/DL (40-60); POTASSIUM 4.8 MMOL/L (3.6-5.0); SODIUM 135 MMOL/L (135-145); TOTAL PROTEIN 7.5 GM/DL (6.4-8.2); TRIGLYCERIDES 119 MG/DL (<150); VLDL CHOLESTEROL 24 MG/DL (5-40)
[2019-03-08] MEDS ORDERED: fentaNYL INJECTION 100 MCG/2 ML AMP ONE (10:42)
[2019-03-08] MEDS ORDERED: MIDAZOLAM 5 MG/5 ML (VERSED) VIAL ONE (10:42)
[2019-03-08] MEDS ORDERED: NS IV 1000 ML 1,000 ML IV SCH (11:15)
--- NOTE | 2019-03-08 11:26 | Cardiac Procedure Note-CS/ASA ---
Pre-Procedure Note Pre-Op Procedure Note H&P Reviewed The H&P was reviewed, patient examined and no changes noted. Date H&P Reviewed: Mar 08, 2019 Time H&P Reviewed: 11:25 Conscious Sedation Pre-Proced Time 11:25 ASA Score 3 For ASA 3 and 4: Consider anesthesia and medical clearance. Also, for patients with a history of failed moderate sedation consider anesthesia. Airway Lungs Heart ASA score ASA 1: a normal healthy patient ASA 2: a patient with a mild systemic disease (mid diabetes, controlled hypertension, obesity ASA 3: a patient with a severe systemic disease that limits activity (angina, COPD, prior Myocardial infarction) ASA 4: a patient with an incapacitating disease that is a constant threat to life (CHF, renal failure) ASA 5: a moribund patient not expected to survive 24 hrs. (ruptured aneurysm) ASA 6: a declared brain- patient whose organs are being harvested. For emergent operations, add the letter E after the classification Mallampati Classification Grade 2 Sedation Plan Analgesia, Amnesia, Plan communicated to team members, Discussed options with patient/fam, Discussed risks with patient/fam The patient is an appropriate candidate to undergo the planned procedure, sedation, and anesthesia. The patient immediately re-assessed prior to indication. DEBORA CARO MD FACP FAC CCDS Mar 08, 2019 11:25
[2019-03-08] MEDS ORDERED: HEParin 1000 UNIT/ML (10ML VIAL) FOR BOLUS ONE (11:46)
[2019-03-08] MEDS ORDERED: EPTIFIBATIDE BOLUS 20 ML IV ONE (11:47)
[2019-03-08] MEDS ORDERED: NITRO DRIP 25000 MCG/D5W 250 ML IV ONE (11:51)
[2019-03-08] MEDS ORDERED: MIDAZOLAM 2 MG/2 ML (VERSED) VIAL ONE (12:12)
[2019-03-08] MEDS ORDERED: CLOPIDOGREL 75 MG (PLAVIX) TABLET ONE (12:52)
[2019-03-08] MEDS ORDERED: ASPIRIN 81 MG CHEW (CHILDREN'S ASA) ONE (12:52)
[2019-03-08] MEDS ORDERED: ACETAMINOPHEN 500 MG TAB (TYLENOL) PO PRN (13:30)
[2019-03-08] MEDS ORDERED: PATIENT MAY USE OWN MEDS, ALL PO SCH (13:30)
[2019-03-08] MEDS: NS IV 1000 ML 1,000 ML IV SCH ×2 (14:24→23:30)
[2019-03-08] MEDS ORDERED: NON-FORMULARY MEDICATION 1 EA EA (Hydralazine HCl 50 MG) PO SCH (15:00)
[2019-03-08] MEDS: hydrALAZINE (APRESOLINE) 25 MG TAB PO SCH ×2 (16:48→20:39)
[2019-03-08] MEDS: GABAPENTIN 300 MG (NEURONTIN) CAP PO SCH ×2 (16:48→20:39)
[2019-03-08] MEDS ORDERED: NON-FORMULARY MEDICATION 1 EA EA (Albuterol/Ipratropium (Combivent Respimat Inhal Spray) 1 IH SCH (17:00)
[2019-03-08] MEDS ORDERED: LIDOCAINE 1% INJ 20 ML 20 ML VIAL ONE (17:35)
[2019-03-08] MEDS ORDERED: HEParin (CATH LAB) 2,000 ML IV ONE (17:35)
[2019-03-08] MEDS: RT-ALBUTEROL/IPRATROPIUM 3 ML (DUONEB) VIAL IH SCH (20:14)
[2019-03-08] MEDS ORDERED: inSUlin ASPART (NovoLOG) 1 UNIT/0.01 ML (CHARGE PER UNIT) ONE (20:30)
[2019-03-08] MEDS: inSUlin ASPART (NovoLOG) 1 UNIT/0.01 ML (CHARGE PER UNIT) SC SCH (20:39)
[2019-03-08] MEDS: ENALAPRIL 10 MG (VASOTEC) TAB PO SCH (20:40)
--- NOTE | 2019-03-08 20:50 | NUR ---
PT BS: [id number]. DR. CARO NOTIFIED. NEW ORDER RECEIVED FOR NOVOLOG SC [facility].
[2019-03-08] MEDS ORDERED: NON-FORMULARY MEDICATION 1 EA EA (Enalapril Maleate 20 MG) PO SCH (21:00)
[2019-03-08] MEDS ORDERED: ATORVASTATIN 80 MG (LIPITOR) TABLET PO SCH (21:00)
[2019-03-08] MEDS ORDERED: INSULIN DETEMIR 21 UNIT SQ SCH (21:00)
[2019-03-09 00:37] VITALS: BP 176/65
[2019-03-09 03:36] LABS: HEMOGLOBIN 9.5 G/DL (11.5-16.0); MEAN PLATELET VOLUME 9.9 FL (7.4-10.4); RED CELL DISTRIBUTION WIDTH 14.6 % (10.0-14.5); WHITE BLOOD COUNT 8.3 10^3/uL (4.3-11.0)
[2019-03-09 03:56] LABS: BUN/CREATININE RATIO 22; CALCIUM 8.8 MG/DL (8.5-10.1); CARBON DIOXIDE 21 MMOL/L (21-32); CHLORIDE 104 MMOL/L (98-107); CREATININE SERUM 0.79 MG/DL (0.60-1.30); GFR ESTIMATED > 60; GLUCOSE 329 MG/DL (70-105); POTASSIUM 3.8 MMOL/L (3.6-5.0); SODIUM 135 MMOL/L (135-145)
[2019-03-09 05:31] VITALS: BP 160/69
[2019-03-09] MEDS: inSUlin ASPART (NovoLOG) 1 UNIT/0.01 ML (CHARGE PER UNIT) SC SCH (05:57)
[2019-03-09] MEDS ORDERED: GLIMEPIRIDE 4 MG (AMARYL) TAB PO SCH (06:30)
[2019-03-09] MEDS ORDERED: PANTOPRAZOLE 20 MG TABLET (PROTONIX) PO SCH (07:00)
[2019-03-09] MEDS: ENALAPRIL 10 MG (VASOTEC) TAB PO SCH (07:41)
[2019-03-09] MEDS: hydrALAZINE (APRESOLINE) 25 MG TAB PO SCH (07:43)
[2019-03-09] MEDS: GABAPENTIN 300 MG (NEURONTIN) CAP PO SCH (07:44)
[2019-03-09] MEDS: RT-ALBUTEROL/IPRATROPIUM 3 ML (DUONEB) VIAL IH SCH (08:25)
[2019-03-09] MEDS ORDERED: meTOprolol SUCCINATE 100 MG (TOPROL XL) TAB PO SCH (09:00)
[2019-03-09] MEDS ORDERED: ASPIRIN 81 MG CHEW (CHILDREN'S ASA) PO SCH (09:00)
[2019-03-09] MEDS ORDERED: CLOPIDOGREL 75 MG (PLAVIX) TABLET PO SCH (09:00)
[2019-03-09] MEDS ORDERED: NON-FORMULARY MEDICATION 1 EA EA (Pantoprazole Sodium (Protonix) 20 MG) PO SCH (09:00)
[2019-03-09] MEDS ORDERED: GLIMEPIRIDE 8 MG PO SCH (09:00)
[2019-03-09] MEDS ORDERED: NON-FORMULARY MEDICATION 1 EA EA (Metoprolol Succinate 200 MG) PO SCH (09:00)
--- NOTE | 2019-03-09 09:09 | Progress Note-Cardiology ---
Cardiology SOAP Progress Note Subjective: No cp or palp or syncope or shortness of breath or groin discomfort or leg discomfort Objective: I&O/Vital Signs 03/09/19 03/09/19 03/09/19 03/09/19 00:37 01:00 05:31 07:06 Temp 98.8 97.7 Pulse 76 71 75 73 Resp 18 18 B/P (MAP) 176/65 (102) 160/69 (99) Pulse Ox 94 94 O2 Delivery Room Air Room Air 03/09/19 03/09/19 08:00 08:00 Temp 97.2 Pulse Ox 94 O2 Delivery Room Air Weight (Pounds): 195 Weight (Ounces): 0.0 Weight (Calculated Kilograms): 88.593894 Condition: DP/PT pulses palpable Bruising: mild bruising Constitutional: AAO x 3, well-developed, well-nourished Respiratory: No accessory muscle use; lungs clear to percussion, lungs clear to auscultation Cardiovascular: regular rate-rhythm, S1 and S2, systolic murmur (faint DIMITRIOS at card base) Gastrointestional: No tender; soft; No guarding, No rebound; audible bowel sounds Extremities: No clubbing, No cyanosis, No significant edema Neurologic/Psychiatric: oriented x 3, grossly intact, power is 5/5 both on sides Skin: No rash on exposed areas, No ulcerations on exposed areas Results/Procedures: Labs Laboratory Tests 03/08/19 10:11: White Blood Count 8.6, Red Blood Count 4.15L, Hemoglobin 11.2L, Hematocrit 36, Mean Corpuscular Volume 87, Mean Corpuscular Hemoglobin 27, Mean Corpuscular Hemoglobin Concent 31L, Red Cell Distribution Width 14.6H, Platelet Count 245, Mean Platelet Volume 10.2, Prothrombin Time 12.4, INR Comment 0.9, Activated Partial Thromboplast Time 36H, Sodium Level 135, Potassium Level 4.8, Chloride Level 102, Carbon Dioxide Level 20L, Anion Gap 13, Blood Urea Nitrogen 21H, Creatinine 0.86, Estimat Glomerular Filtration Rate > 60, BUN/Creatinine Ratio 24, Glucose Level 366H, Calcium Level 9.6, Corrected Calcium 9.5, Total Bilirubin 0.4, Aspartate Amino Transf (AST/SGOT) 28, Alanine Aminotransferase (ALT/SGPT) 26, Alkaline Phosphatase 82, Total Protein 7.5, Albumin 4.1, Triglycerides Level 119, Cholesterol Level 136, LDL Cholesterol Direct 74, VLDL Cholesterol 24, HDL Cholesterol 36L 03/08/19 20:03: Glucometer 389H 03/09/19 03:00: White Blood Count 8.3, Red Blood Count 3.62L, Hemoglobin 9.5L, Hematocrit 31L, Mean Corpuscular Volume 87, Mean Corpuscular Hemoglobin 26, Mean Corpuscular Hemoglobin Concent 30L, Red Cell Distribution Width 14.6H, Platelet Count 240, Mean Platelet Volume 9.9, Sodium Level 135, Potassium Level 3.8, Chloride Level 104, Carbon Dioxide Level 21, Anion Gap 10, Blood Urea Nitrogen 17, Creatinine 0.79, Estimat Glomerular Filtration Rate > 60, BUN/Creatinine Ratio 22, Glucose Level 329H, Calcium Level 8.8 Laboratory Tests 03/08/19 10:11 03/09/19 03:00 A/P: Assessment: CAD. Cath of 03/08/19: Overlapping 2.5x15 and 2.75x8 mm stents to prox and LCX, PTCA of mid LCX, PTCA of ostial and prox OM1; previously placed stents intact: 2.25x12 Xience to ostial and prox RI, patent Alp Xience 2.5x8 stent to prox LAD and Alp Xience 3x18 stent in mid RCA, 70% prox and distal stenosis in OM I, LVEF 65-70%, LVEDP 13 mmHg Malignant hypertension, associated with encephalopathy, in November 2017 MRA of head and neck on 12/05/17: no significant abnormality reported Normal TSH on 12/04/17 (0.96) PAD. Peripheral angio of May 2016:Bilateral ostial/proximal anterior tibial artery occlusions with reconstitution of the dorsalis pedis via collaterals. S/p balloon angioplasty of the R ant tib by Dr Li at [facility] in May 2016 Echo on 12/07/17: LVEF 60-65%,mild MR, grade I diastolic dysfunction Chronic, recurrent diabetic ulcer of the R great toe, managed by Dr Torsten CARBALLOII with chronic diabetic neuropathy in glove and stocking distribution Quit smoking in the 1989 Elevated BMI of approx 32 Plan: * I explained to her in detail the findings of card cath and interventions undertaken * I explained the rationale of her card meds and the importance of compliance, in particular her antiplatelet therapy * Questions answered * Outpt f/u advised DEBORA CARO MD FACP FACC CCDS Mar 09, 2019 09:09
--- NOTE | 2019-03-09 09:12 | Discharge Inst-Post CATH ---
Discharge Inst-CATH/EP Post Cardiac Cath/EP D/C Inst Follow Up/Plan F/u with Dr Kohli in 1-2 weeks ACTIVITY * Go Home directly and rest. * Limit activity of the leg (or wrist if it was used) for 7 days including aerobics, swimming, jogging, bicycling, etc. * Restrict stair-climbing for 7 days if possible, if not, climb up with your non-cath leg, then bring together on the same step. * Avoid lifting, pushing, pulling or excessive movement of the affected extremity for 7 days. * Customary sexual activity may be resumed after 2 days-use caution not to use a position that strains or causes pain to the affected extremity. * No driving for 24 hours. * NO SMOKING. * Avoid straining for bowel movements for 7 days. * Gentle walking on level ground is allowed. * Returning to work will depend on the type of procedure and the results. Your doctor will discuss this with you. CALL YOUR DOCTOR FOR ANY OF THE FOLLOWING: *If bleeding from the puncture site occurs- Apply gentle pressure to site with clean cloth and call your doctor or EMS. * If a knot or lump forms under the skin, increases in size, or causes pain. * If bruising appears to be worsening or moving further down your leg instead of disappearing. * Temperature above 101 F. CARE OF YOUR GROIN INCISION; * Bruising or purple discoloration of the skin near the puncture site is common. * You may shower only, no bathtub bathing for 5 days. Be careful to avoid slipping as your leg may feel stiff. * If a closure device was used on your femoral artery, please see the attached guide regarding care of the device and your leg. * Leave dressing on FOR 24 hours. CARE OF YOUR WRIST INCISION; * Bruising or purple discoloration of the skin near the puncture site is common. * You may shower. * DO NOT submerge wrist. * Leave dressing on FOR 24 hours. DEBORA KOHLI MD [facility] CCDS Mar 09, 2019 09:12
--- NOTE | 2019-03-09 09:13 | Discharge Inst-Cardiology ---
Discharge Inst-Cardiac Discharge Medications Continued Medications: Albuterol/Ipratropium (Combivent Respimat Inhal [place]) 4 Gm Aero 1 PUFF IH QID, INH Aspirin (Aspirin) 81 Mg Tab.chew 81 MG PO DAILY, TAB Atorvastatin Calcium (Atorvastatin Calcium) 80 Mg Tablet 80 MG PO HS, TAB Clopidogrel Bisulfate (Plavix) 75 Mg Tablet 75 MG PO DAILY, TAB Enalapril Maleate (Enalapril Maleate) 20 Mg Tablet 20 MG PO BID, TAB Gabapentin (Gabapentin) 300 Mg Capsule 900 MG PO 0800,1500,2100, CAP TAKES 3 (300 MG) CAPSULES Glimepiride (Glimepiride) 4 Mg Tablet 8 MG PO DAILY, TAB TAKES 2 (4 MG) TABLETS Hydralazine HCl (Hydralazine HCl) 50 Mg Tablet 50 MG PO 0800,1500,2100, TAB Insulin Detemir (Levemir Flextouch) 100 Unit/1 Ml Insuln.pen 21 UNIT SQ HS, EA Metformin HCl (Metformin HCl ER) 500 Mg Tab.er.24 1000 MG PO BID, TAB TAKES 2 (500 MG) TABLETS Metoprolol Succinate (Metoprolol Succinate) 200 Mg Tab.er.24h 200 MG PO DAILY, TAB Pantoprazole Sodium (Protonix) 20 Mg Tablet.dr 20 MG PO DAILY, TAB Tramadol HCl (Tramadol HCl) 50 Mg Tablet 50 MG PO 0800,1500,2100 PRN for PAIN-MODERATE, TAB Patient Instructions Patient Instructions: Hold metformin until the evening of 03/10/19; then resume previous home dose DEBORA CARO MD FACP FAC CCDS Mar 09, 2019 09:13
--- NOTE | 2019-03-11 15:56 | CARDIAC CATHETERIZATION ---
DATE OF SERVICE: 03/08/2019 CARDIAC CATHETERIZATION AND CORONARY INTERVENTION REPORT INDICATIONS: The patient is a 63-year-old lady with known coronary artery disease, previously had multiple coronary interventions. She has been experiencing chest discomfort and shortness of breath. Cardiac catheterization was carried out today after having obtained informed consent for cardiac catheterization and possible ad hoc coronary intervention. DESCRIPTION OF PROCEDURE: She was brought to the cardiac catheterization laboratory in a fasting state. Right groin was prepared and draped in usual sterile fashion. Lidocaine 1% was used for local anesthesia. Modified Seldinger technique was used to advance a 5-Uruguayan sheath in the right femoral artery. We used a 5-Uruguayan JL4 catheter for left coronary angiography and 5-[place]rugu[place] JR4 catheter for right coronary angiography. We used a 5-[place]ruguayan pigtail catheter for left heart catheterization and left ventricular angiography. Percutaneous intervention to the left circumflex artery and to the first obtuse marginal branch, left circumflex artery. Following completion of the diagnostic procedure, we carried out percutaneous intervention. We exchanged the sheath over a wire for a 7-Uruguayan sheath. We used a 7-[place]rugu[place] JL4 guide catheter. We advanced a ChoICE PT Graphix wire into the first obtuse marginal branch. This was accomplished with considerable difficulty. We carried out balloon angioplasty with Emerge 2.0 x 15 mm balloon. We advanced another wire (choice floppy) into the left circumflex. We then carried out balloon angioplasty of the first obtuse marginal and the mid portion of the left circumflex with Emerge 2.0 x 20 (left circumflex) and Emerge 2.0 x 15 (first obtuse marginal). The balloon and the wire in the obtuse marginal were removed. Over the left circumflex wire, we extended an Alpine Xience 2.5 x 15 mm stent to the proximal left circumflex and deployed it. Just proximal to the proximal edge of the stent, there appeared to be some remaining lesion. This was stented with Alpine Xience 2.75 x 8 mm stent. Subsequent angiography revealed 0% residual stenosis in the proximal and ostial left circumflex and less than 30% stenosis in the mid left circumflex. The first obtuse marginal exhibits less than 30% ostial and proximal stenosis. HEMODYNAMICS: Left ventricular end-diastolic pressure following coronary angiography was 13 mmHg. There was no significant pressure gradient on pullback across the aortic valve. Ascending aortic pressure was 127/56 with a mean 82 mmHg. CORONARY ANGIOGRAPHY: There is diffuse mild to moderate disease of all coronary vessels and some calcification. Patent stents are seen in the mid left anterior descending and the first diagonal. The left circumflex artery had lesions including 70-80% proximal left circumflex, 80% mid left circumflex, and 80% proximal first obtuse marginal of the left circumflex. , successful balloon angioplasty and stenting were carried out as described above. There is a patent stent in the right coronary artery. LEFT VENTRICULAR ANGIOGRAPHY: Left ventricular angiography was carried out in the right anterior oblique projection. Global left ventricular systolic function is normal. No regional wall motion abnormality is seen. Left ventricular ejection fraction is 65-70%. CONCLUSIONS: 1. Successful stenting of the proximal left circumflex with overlapping 2.5 x 15 (distal) and 2.75 x 8 (proximal) stents. 2. Successful balloon angioplasty of the mid left circumflex with reduction of stenosis from 80% to less than 30%. 3. Successful balloon angioplasty of the first obtuse marginal branch and left circumflex with reduction of stenosis from 80% to less than 30%. 4. Patent previous stents (2.25 x 12 Xience in the ramus, 2.5 x 8 in the left anterior descending, and 3.0 mm x 18 Xience in the mid right coronary). 5. Left ventricular ejection fraction is 65-70%. 6. Left ventricular end-diastolic pressure is 13 mmHg. Job ID: [id number] DocumentID: [id number] Dictated Date: 03/11/2019 14:27:56 Service Station Operator Date: 03/11/2019 15:55:18 Dictated By: DEBORA CARO MD, MA, FACP, FACC,
== END 2019-03-09 09:57 | disposition home or self-care (01) ==
LOC: CATH 09:40 → ICU 13:20 → CATH 03-09 09:57
PROVIDERS: ATTEND Internal Medicine Cardiovascular Disease
DX: I25.10 Atherosclerotic heart disease of native coronary artery without angina pectoris (principal); I10 Essential (primary) hypertension; I73.9 Peripheral vascular disease, unspecified; E11.621 Type 2 diabetes mellitus with foot ulcer; L97.519 Non-pressure chronic ulcer of other part of right foot with unspecified severity; Z87.891 Personal history of nicotine dependence; E11.40 Type 2 diabetes mellitus with diabetic neuropathy, unspecified; Z95.5 Presence of coronary angioplasty implant and graft; Z79.82 Long term (current) use of aspirin; Z79.899 Other long term (current) drug therapy; Z79.4 Long term (current) use of insulin
CPT/HCPCS: 36415; 80048; 80053; 80061; 82962; 85027; 85610; 85730; 87081; 93005; 93458; 94640

== ENCOUNTER 2019-06-13 10:15 | Outpatient (RCR) | payer OTHER ==
[~2019-06-13 10:15] MED LIST changes: +IPRA4AER IH; -OMEP20CA12 PO; +OMEP20CA13 PO
== END 2019-07-17 | disposition home or self-care (01) ==
LOC: CR 10:15
PROVIDERS: ATTEND Family Medicine
DX: Z48.812 Encounter for surgical aftercare following surgery on the circulatory system (principal); Z95.5 Presence of coronary angioplasty implant and graft
CPT/HCPCS: 93798

== ENCOUNTER 2019-08-16 11:02 | Inpatient (IN) | payer OTHER ==
[~2019-08-16] VITALS: Ht 165 cm; Wt 92.0 kg
[2019-08-16] MEDS ORDERED: NITROGLYCERIN 0.4 MG SL TABS BTL 25'S SL PRN (11:15)
[2019-08-16] MEDS ORDERED: ASPIRIN 81 MG CHEW (CHILDREN'S ASA) PO ONE (11:15)
--- NOTE | 2019-08-16 11:22 | ED Dyspnea ---
General Stated Complaint: SOA Source of Information: Patient Exam Limitations: No Limitations History of Present Illness Date Seen by Provider: Aug 16, 2019 Time Seen by Provider: 11:17 Initial Comments To ER per private vehicle from home with reports of shortness of breath. She's had shortness of breath ongoing for some time, has seen Dr. Alvarenga. However t kaelyn seems worse than usual she presented to Dr. Dr. Sutton's office who referred her to the emergency room. She denies chest pain. She denies fevers or chills. She does report a slightly productive cough. History of smoking but none current. Symptoms are somewhat improved with sitting completely upright, she has had to sleep with several pillows beneath her at night. Timing/Duration: Increasing Severity: Moderate Associated Symptoms: Denies Symptoms, Cough Allergies and Home Medications Allergies Coded Allergies: No Known Drug Allergies (Unverified , 01/19/11) Home Medications Albuterol/Ipratropium 4 Gm Aero, 1 PUFF IH QID, (Reported) Aspirin 81 Mg Tab.chew, 81 MG PO DAILY, (Reported) Atorvastatin Calcium 80 Mg Tablet, 80 MG PO HS, (Reported) Clopidogrel Bisulfate 75 Mg Tablet, 75 MG PO DAILY, (Reported) Enalapril Maleate 20 Mg Tablet, 20 MG PO BID, (Reported) Gabapentin 300 Mg Capsule, 900 MG PO 0800,1500,2100, (Reported) TAKES 3 (300 MG) CAPSULES Glimepiride 4 Mg Tablet, 8 MG PO DAILY, (Reported) TAKES 2 (4 MG) TABLETS Hydralazine HCl 50 Mg Tablet, 50 MG PO 0800,1500,2100, (Reported) Insulin Detemir 100 Unit/1 Ml Insuln.pen, 21 UNIT SQ HS, (Reported) Metformin HCl 500 Mg Tab.er.24, 1,000 MG PO BID, (Reported) TAKES 2 (500 MG) TABLETS Metoprolol Succinate 200 Mg Tab.er.24h, 200 MG PO DAILY, (Reported) Pantoprazole Sodium 20 Mg Tablet.dr, 20 MG PO DAILY, (Reported) Tramadol HCl 50 Mg Tablet, 50 MG PO 0800,1500,2100 PRN for PAIN-MODERATE, (Reported) Patient Home Medication List Home Medication List Reviewed: Yes Review of Systems Review of Systems Constitutional: see HPI EENTM: see HPI Respiratory: see HPI, cough, short of breath Cardiovascular: no symptoms reported; No chest pain, No edema, No palpitations, No syncope, No vascular heart diseas Genitourinary: no symptoms reported Musculoskeletal: no symptoms reported Skin: no symptoms reported Psychiatric/Neurological: No Symptoms Reported Endocrine: No Symptoms Reported Past Mtwphpy-Sapogo-Jhxuyw Hx Patient Social History Type Used: Cigarettes Former Smoker, Quit: Apr 27, 1990 2nd Hand Smoke Exposure: Yes Recent Hopitalizations: No Immunizations Up To Date Tetanus Booster (TDap): Unknown PED Vaccines UTD: No Date of Pneumonia Vaccine: Oct 15, 2018 Date of Influenza Vaccine: Jun 14, 2018 Seasonal Allergies Seasonal Allergies: No Past Medical History Surgeries: Yes (right leg vein sx x2, cardiac stent x 3, ) Coronary Stent, Tubal Ligation Respiratory: No Currently Using CPAP: No Currently Using BIPAP: No Cardiac: Yes (STENTS) Coronary Artery Disease, Hypertension, Peripheral Vascular Neurological: Yes Neuropathy 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 Disorders: No Female 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 Disorders: Denies Genitourinary: Yes UTI-Chronic Gastrointestinal: Yes Gastroesophageal Reflux Musculoskeletal: Yes Fibromyalgia Endocrine: Yes Diabetes, Insulin dep HEENT: No Loss of Vision: Denies Hearing Impairment: Denies Cancer: No Psychosocial: No Integumentary: Yes (diabetic ulcer right foot) Blood Disorders: No Adverse Reaction/Blood Tranf: No Family Medical History Cardiovascular disease 19 MOTHER, G8 BROTHER G8 BROTHER Completed stroke 19 MOTHER, Diabetes mellitus 19 FATHER, 19 MOTHER, G8 BROTHER G8 SISTER FH: brain tumor FH: breast cancer 19 MOTHER, FH: lung cancer FHx: peripheral neuropathy Hypertension 19 FATHER, Lung c 19 FATHER, Myocardial infarction 19 MOTHER, Neuro No Pertinent Family Hx, Hypertension Physical Exam Vital Signs Vital Signs - First Documented 08/16/19 11:05 Temp 36.6 Pulse 69 Resp 16 B/P (MAP) 186/87 (120) Pulse Ox 94 Capillary Refill : Height, Weight, BMI Height: 5'5.50" Weight: 195lbs. 0.0oz. 88.431724ru; 32.0 BMI Method:Stated General Appearance: No Apparent Distress, WD/WN HEENT: PERRL/EOMI, TMs Normal Neck: Full Range of Motion, Normal Inspection; No JVD Respiratory: No Accessory Muscle Use, No Respiratory Distress Cardiovascular: Regular Rate, Rhythm, Normal Peripheral Pulses Gastrointestinal: Normal Bowel Sounds, Non Tender, Soft Neurologic/Psychiatric: Alert, Oriented x3 Skin: Normal Color, Warm/Dry Progress/Results/Core Measures Results/Orders Lab Results Laboratory Tests Test 08/16/19 11:15 Range/Units White Blood Count 9.4 4.3-11.0 10^3/uL Red Blood Count 3.98 L 4.35-5.85 10^6/uL Hemoglobin 9.4 L 11.5-16.0 G/DL Hematocrit 32 L 35-52 % Mean Corpuscular Volume 80 80-99 FL Mean Corpuscular Hemoglobin 24 L 25-34 PG Mean Corpuscular Hemoglobin Concent 30 L 32-36 G/DL Red Cell Distribution Width 17.8 H 10.0-14.5 % Platelet Count 256 130-400 10^3/uL Mean Platelet Volume 9.5 7.4-10.4 FL Neutrophils (%) (Auto) 68 42-75 % Lymphocytes (%) (Auto) 21 12-44 % Monocytes (%) (Auto) 8 0-12 % Eosinophils (%) (Auto) 4 0-10 % Basophils (%) (Auto) 0 0-10 % Neutrophils # (Auto) 6.3 1.8-7.8 X 10^3 Lymphocytes # (Auto) 2.0 1.0-4.0 X 10^3 Monocytes # (Auto) 0.7 0.0-1.0 X 10^3 Eosinophils # (Auto) 0.3 0.0-0.3 10^3/uL Basophils # (Auto) 0.0 0.0-0.1 10^3/uL D-Dimer 0.84 H 0.00-0.49 UG/ML Sodium Level 139 135-145 MMOL/L Potassium Level 4.1 3.6-5.0 MMOL/L Chloride Level 104 98-107 MMOL/L Carbon Dioxide Level 24 21-32 MMOL/L Anion Gap 11 5-14 MMOL/L Blood Urea Nitrogen 18 7-18 MG/DL Creatinine 0.72 0.60-1.30 MG/DL Estimat Glomerular Filtration Rate > 60 BUN/Creatinine Ratio 25 Glucose Level 179 H 70-105 MG/DL Calcium Level 9.2 8.5-10.1 MG/DL Corrected Calcium 9.0 8.5-10.1 MG/DL Total Bilirubin 0.3 0.1-1.0 MG/DL Aspartate Amino Transf (AST/SGOT) 20 5-34 U/L Alanine Aminotransferase (ALT/SGPT) 29 0-55 U/L Alkaline Phosphatase 84 40-136 U/L Troponin I 0.028 <0.028 NG/ML B-Type Natriuretic Peptide 208.6 H <100.0 PG/ML Total Protein 7.1 6.4-8.2 GM/DL Albumin 4.2 3.2-4.5 GM/DL My Orders Orders - DEBBIE TAYLOR RIGHT OF WAY MANAGER Cbc With Automated Diff (08/16/19 11:10) Comprehensive Metabolic Panel (08/16/19 11:10) Fibrin Degradation Products (08/16/19 11:10) Troponin I (08/16/19 11:10) Ekg Tracing (08/16/19 11:10) BNP (08/16/19 11:10) Chest Pa/Lat (2 View) (08/16/19 11:10) Ed Iv/Invasive Line Start (08/16/19 11:10) Nitroglycerin 0.4 Mg Btl 25's (Nitrostat (08/16/19 11:15) Aspirin Chewable Tablet (Baby Aspirin Ch (08/16/19 11:15) Ct Angio Chest W (08/16/19 12:11) Iohexol Injection (Omnipaque 350 Mg/Ml 1 (08/16/19 12:15) Received Contrast (Hold Metformin- Contr (08/16/19 12:15) Ns (Ivpb) (Sodium Chloride 0.9% Ivpb Bag (08/16/19 12:15) Furosemide Injection (Lasix Injection) (08/16/19 13:30) Medications Given in ED Current Medications Medications Dose Ordered Sig/[place] Route Start Time Stop Time Status Last Admin Dose Admin Aspirin 324 mg ONCE ONCE PO 08/16/19 11:15 08/16/19 11:16 DC 08/16/19 11:39 324 MG Iohexol 100 ml ONCE ONCE IV 08/16/19 12:15 08/16/19 12:21 DC 08/16/19 12:47 80 ML Sodium Chloride 100 ml ONCE ONCE IV 08/16/19 12:15 08/16/19 12:21 DC 08/16/19 12:47 80 ML Vital Signs/I&O 08/16/19 11:05 Temp 36.6 Pulse 69 Resp 16 B/P (MAP) 186/87 (120) Pulse Ox 94 Departure Communication (Admissions) Time/Spoke to Admitting Phy: 13:[address] Sutton, we will admit consult Dr. Alvarenga and Dr. Kohli, spoke with Dr. Alvarenga, we'll admit, hold antibiotics at this time given Lasix, spoke with Sandi RN on behalf of Dr. Kohli since he is scrubbed in/sterile for a procedure, will consult later. Impression Primary Impression: Pulmonary edema Disposition: ADMITTED INPATIENT Condition: Stable Admissions Decision to Admit Reason: Admit from ER (General) Decision to Admit/Date: Aug 16, 2019 Time/Decision to Admit Time: 13:24 Departure-Patient Inst. Referrals: TAYO SUTTON DO (PCP/Family) Primary Care Physician DEBBIE TAYLOR APRN Aug 16, 2019 11:22 POS
[2019-08-16 11:32] LABS: BASOPHILS % (AUTO) 0 % (0-10); EOSINOPHILS # (AUTO) 0.3 10^3/uL (0.0-0.3); EOSINOPHILS % (AUTO) 4 % (0-10); HEMATOCRIT 32 % (35-52); HEMOGLOBIN 9.4 G/DL (11.5-16.0); LYMPHOCYTES % (AUTO) 21 % (12-44); MEAN CORPUSCULAR HEMOGLOBIN 24 PG (25-34); MEAN CORPUSCULAR HGB CONC 30 G/DL (32-36); MEAN CORPUSCULAR VOLUME 80 FL (80-99); MEAN PLATELET VOLUME 9.5 FL (7.4-10.4); MONOCYTES # (AUTO) 0.7 X 10^3 (0.0-1.0); MONOCYTES % (AUTO) 8 % (0-12); NEUTROPHILS # (AUTO) 6.3 X 10^3 (1.8-7.8); NEUTROPHILS % (AUTO) 68 % (42-75); PLATELET COUNT 256 10^3/uL (130-400); RED CELL DISTRIBUTION WIDTH 17.8 % (10.0-14.5); WHITE BLOOD COUNT 9.4 10^3/uL (4.3-11.0)
[2019-08-16] MEDS ORDERED: INSU100I32 SC (11:34)
[2019-08-16 12:01] LABS: ALANINE AMINOTRANSFERASE 29 U/L (0-55); ALBUMIN 4.2 GM/DL (3.2-4.5); ALKALINE PHOSPHATASE 84 U/L (40-136); BILIRUBIN,TOTAL 0.3 MG/DL (0.1-1.0); BUN/CREATININE RATIO 25; CALCIUM 9.2 MG/DL (8.5-10.1); CARBON DIOXIDE 24 MMOL/L (21-32); CHLORIDE 104 MMOL/L (98-107); CREATININE SERUM 0.72 MG/DL (0.60-1.30); GFR ESTIMATED > 60; GLUCOSE 179 MG/DL (70-105); POTASSIUM 4.1 MMOL/L (3.6-5.0); SODIUM 139 MMOL/L (135-145); TOTAL PROTEIN 7.1 GM/DL (6.4-8.2)
[2019-08-16] MEDS ORDERED: IOHEXOL 350 MG/ML 100 ML (OMNIPAQUE 350) VIAL IV ONE (12:15)
[2019-08-16] MEDS ORDERED: NS 100 ML (IVPB) BAG IV ONE (12:15)
[2019-08-16] MEDS ORDERED: HOLD METFORMIN - RECEIVED CONTRAST 20 ML VIAL IV SCH (12:15)
--- NOTE | 2019-08-16 12:16 | Diagnostic Imaging Report ---
EXAMINATION: Chest 2 view HISTORY: Shortness of breath. COMPARISON: 02/25/2019. FINDINGS: The lung volumes are normal. No focal consolidation is seen. Small bilateral pleural effusions are present. No pneumothorax. The cardiomediastinal silhouette is normal in size and contour. No acute osseous abnormality is seen. IMPRESSION: 1. Small bilateral pleural effusions. No focal consolidation or mass. Dictated by: Dictated on workstation # [id number]
--- NOTE | 2019-08-16 13:04 | Diagnostic Imaging Report ---
PROCEDURE: CT angiography of the chest with contrast. TECHNIQUE: Multiple contiguous axial images were obtained through the chest after uneventful bolus administration of intravenous contrast. 3D reconstructed CTA MIP acquisitions were also performed. Auto Exposure Controls were utilized during the CT exam to meet ALARA standards for radiation dose reduction. INDICATION: Difficulty breathing, worsening in severity. FINDINGS: There is no intraluminal pulmonary arterial filling defects. There is no pulmonary arterial embolus. The thoracic aorta patent and nonaneurysmal. There is no pericardial effusion. There is minute right and small left pleural effusions layering less than 1 cm without evidence for their loculation. There is a mediastinal lymphadenopathy. A right superior paratracheal node is 2.4 x 1.5 cm. Left prevascular lymph nodes 1.2 cm in diameter. Anterior mediastinal nodes anterior to the cava 1.2 x 1.0 cm. A lower right paratracheal mediastinal node 2.3 x 1.4 cm. Subcarinal node 2.4 x 1.4 cm. There is bilateral hilar lymph nodes greater left the largest on the left measured 2.2 x 1.3 cm. No pathological appearing axillary nodes. The visualized supraclavicular fossa unremarkable. The visualized portions of the thyroid unremarkable. Septal thickening and groundglass opacity suggestive of at least mild interstitial edema. There are a few scattered subpleural pulmonary nodules less than 1 cm indeterminate. No dominant lung mass. No suspicious lytic or sclerotic bone lesion. Visualized upper abdomen reveals intact adrenal glands and nonfocal partially visualized liver. IMPRESSION: 1. Negative for PE or other acute thoracic vascular abnormality. 2. Indeterminate mediastinal and hilar lymphadenopathy may be reactive or neoplastic. If there is no resolution at follow-up within 1-2 months time would suggest proceeding with metabolic PET/CT. 2. Pulmonary interstitial opacities favoring edema however pneumonia could not be excluded. There are small amounts of pleural fluid and an upper limits heart size. Dictated by: Dictated on workstation # [id number]
[2019-08-16] MEDS ORDERED: FUROSEMIDE 40 MG/4 ML INJ (LASIX) IVP ONE (13:30)
[2019-08-16 13:37] LABS: BILIRUBIN,URINE NEGATIVE (NEGATIVE); CLARITY,URINE CLEAR; COLOR,URINE YELLOW; GLUCOSE, URINE (UA) TRACE (NEGATIVE); KETONES,URINE NEGATIVE (NEGATIVE); LEUKOCYTE ESTERASE ,URINE NEGATIVE (NEGATIVE); NITRITE,URINE NEGATIVE (NEGATIVE); PH,URINE 5.5 (5-9); PROTEIN,URINE NEGATIVE (NEGATIVE)
[2019-08-16 13:51] LABS: BACTERIA,URINE LARGE /HPF
[2019-08-16] MEDS ORDERED: CATHETER FLUSH 10 ML SYR IV PRN ×2 (14:15)
[2019-08-16] MEDS ORDERED: ATOR40TA70 PO (14:45)
[2019-08-16] MEDS ORDERED: INSU100I14 SC (14:45)
[2019-08-16] MEDS ORDERED: CLOP75TA28 PO (14:45)
[2019-08-16] MEDS ORDERED: METF500T8 PO (14:45)
[2019-08-16] MEDS ORDERED: BACI1TAB3 PO (14:45)
[2019-08-16] MEDS ORDERED: PANT20TA3 PO (14:45)
[2019-08-16] MEDS ORDERED: IBUP-30 PO (14:45)
[2019-08-16] MEDS ORDERED: TRAM50TA2 PO (14:45)
--- NOTE | 2019-08-16 14:47 | NUR ---
WENT OVER THE EXT MED HX WITH THE PATIENT AND SHE VERIFIED HOW SHE TAKES EACH MEDICATION. I CALLED [facility] TO VERIFY THEY HAVE MOST RECENTLY DISPENSE THE LIPITOR 40MG, THEY HAVE NOT DISPENSED THE 80MG SINCE THE BEGINNING OF THE YEAR, THE EXT MED HX SHOWS AN 80MG IN JUNE HOWEVER THERE IS NO DETAILS WHERE THAT INFORMATION HAS BEEN REPORTED FROM. UPDATED MED REC TO SHOW THE 40MG TABLET [facility] FILLED. SHE TAKES THE FOLLOWING OTC: ASPIRIN 81MG DAILY IBU 2 TABS PRN PROBIOTIC CHEWS 2 DAILY
--- NOTE | 2019-08-16 15:23 | Consultation-Cardiology ---
HPI-Cardiology Cardiology Consultation: Date of Consultation 08/16/19 Time Seen by a Provider: 15:10 Date of Admission 08-16-19 Attending Physician Nino Bernabe DO Admitting Physician Nino Bernabe DO Consulting Physician Stephania Kohli MD HPI: Chief Complaint: Progressive dyspnea Ms. Ray is a 64 year old female admitted to ICU 2 from the ED with progressive dyspnea, orthopnea, cough which started approx 3 days. She denies any CP. She reports abdominal bloating and epigastric pressure. She denies any LE swelling. She denies any palpitations. She reports an occ feeling of a flip/flop heart beat which is rare. She denies any n/v/d. She denies any fever or chills. She feels her breathing is better. She is concerned she has a UTI. Review of Systems-Cardiology Review of Systems Constitutional: No chills, No fever; malaise Eyes: No vision change Ears/Nose/Throat: No epistaxis, No recent hearing loss Respiratory: As described under HPI Cardiovascular: As described under HPI Gastrointestinal: As described under HPI Genitourinary: No dysuria, No hematuria Musculoskeletal: no symptoms reported Skin: No rash on exposed areas, No ulcerations on exposed areas Psychiatric/Neurological: No seizure, No focal weakness, No syncope Hematologic: No bleeding abnormalities ERB-Cspgpn-Nltvwd Hx Patient Social History Alcohol Use: Denies Use Recreational Drug Use: No Smoking Status: Former Smoker Type Used: Cigarettes 2nd Hand Smoke Exposure: Yes Recent Foreign Travel: No Recent Infectious Disease Expo: No Hospitalization with Isolation: Denies Immunizations Up To Date Tetanus Booster (TDap): Unknown Date of Pneumonia Vaccine: Oct 15, 2018 Date of Influenza Vaccine: Jun 14, 2018 Past Medical History PMH As described under Assessment. Family Medical History Family Medical History: She reports her mother had CAD, CVA. She reports her father had HTN. She reports 2 brothers who havd CAD. Family History: Cardiovascular disease 19 MOTHER, G8 BROTHER G8 BROTHER Completed stroke 19 MOTHER, Diabetes mellitus 19 FATHER, 19 MOTHER, G8 BROTHER G8 SISTER FH: brain tumor FH: breast cancer 19 MOTHER, FH: lung cancer FHx: peripheral neuropathy Hypertension 19 FATHER, Lung c 19 FATHER, Myocardial infarction 19 MOTHER, Neuro Allergies and Home Medications Allergies Coded Allergies: No Known Drug Allergies (Unverified , 01/19/11) Home Medications Albuterol/Ipratropium 4 Gm Aero, 1 PUFF IH QID PRN for SHORTNESS OF BREATH, (Reported) Aspirin 81 Mg Tab.chew, 81 MG PO DAILY, (Reported) Atorvastatin Calcium 40 Mg Tablet, 40 MG PO HS, (Reported) Bacillus Coagulans 1 Each Tab.chew, 2 TAB.CHEW PO DAILY, (Reported) Clopidogrel Bisulfate 75 Mg Tablet, 75 MG PO DAILY, (Reported) Enalapril Maleate 20 Mg Tablet, 20 MG PO BID, (Reported) Gabapentin 300 Mg Capsule, 900 MG PO 0800,1500,2100, (Reported) TAKES 3 (300 MG) CAPSULES Glimepiride 4 Mg Tablet, 8 MG PO DAILY, (Reported) TAKES 2 (4 MG) TABLETS Hydralazine HCl 50 Mg Tablet, 50 MG PO 0800,1500,2100, (Reported) Ibuprofen 200 Mg Tablet, 400 MG PO TID PRN for PAIN-MILD (1-4), (Reported) Insulin Aspart 300 Units/3 Ml Solution, UNITS SC BID WITH MEALS, (Reported) USE 12 UNITS THEN RE CHECK BLOOD SUGAR IN 30 MINUTES AND GIVE ADDITIONAL 10 UNITS IF BLOOD SUGAR > 200 Insulin Degludec 100 Unit/1 Ml Insuln.pen, 32 UNITS SC HS, (Reported) Metformin HCl 500 Mg Tab.er.24h, 2,000 MG PO HS, (Reported) TAKES 4 (500MG) TABLETS Metoprolol Succinate 200 Mg Tab.er.24h, 200 MG PO DAILY, (Reported) Pantoprazole Sodium 20 Mg Tablet.dr, 20 MG PO DAILY, (Reported) Tramadol HCl 50 Mg Tablet, 50 MG PO HS, (Reported) Tramadol HCl 50 Mg Tablet, 50 MG PO BID PRN for PAIN-MODERATE (5-7), (Reported) Patient Home Medication List Home Medication List Reviewed: Yes Physical Exam-Cardiology Physical Exam Vital Signs/I&O 08/17/19 08/17/19 08/17/19 08/17/19 00:02 01:00 04:14 06:51 Temp 36.9 36.4 Pulse 80 80 69 80 Resp 20 18 B/P (MAP) 158/74 (102) 165/72 (103) Pulse Ox 94 93 O2 Delivery Room Air Room Air 08/17/19 08/17/19 07:01 08:00 Temp 35.8 Pulse 70 Resp 18 B/P (MAP) 194/81 (118) Pulse Ox 95 94 O2 Delivery Room Air Room Air 08/16/19 23:59 Intake Total 640 ml Output Total 1000 ml Balance -360 ml Capillary Refill : Less Than 3 Seconds Constitutional: AAO x 3, well-developed, well-nourished HEENT: PERRL, hearing is well preserved, oral hygience is good Neck: No carotid bruit; carotid pulses are 2 + bilaterally Respiratory: No accessory muscle use, No respiratory distress; chest expansion is symmetric, chest is bilaterally symmetric, other (good air entry) Cardiovascular: regular rate-rhythm; No JVD; S1 and S2 Gastrointestinal: No tender; soft, round, distended, audible bowel sounds Extremities: no lower extremity edema bilateral Neurologic/Psychiatric: grossly intact (moves all extremities) Skin: No rash on exposed areas, No ulcerations on exposed areas Data Review Labs Laboratory Tests 08/16/19 11:15: White Blood Count 9.4, Red Blood Count 3.98L, Hemoglobin 9.4L, Hematocrit 32L, Mean Corpuscular Volume 80, Mean Corpuscular Hemoglobin 24L, Mean Corpuscular Hemoglobin Concent 30L, Red Cell Distribution Width 17.8H, Platelet Count 256, Mean Platelet Volume 9.5, Neutrophils (%) (Auto) 68, Lymphocytes (%) (Auto) 21, Monocytes (%) (Auto) 8, Eosinophils (%) (Auto) 4, Basophils (%) (Auto) 0, Neutrophils # (Auto) 6.3, Lymphocytes # (Auto) 2.0, Monocytes # (Auto) 0.7, Eosinophils # (Auto) 0.3, Basophils # (Auto) 0.0, D-Dimer 0.84H, Sodium Level 139, Potassium Level 4.1, Chloride Level 104, Carbon Dioxide Level 24, Anion Gap 11, Blood Urea Nitrogen 18, Creatinine 0.72, Estimat Glomerular Filtration Rate > 60, BUN/Creatinine Ratio 25, Glucose Level 179H, Calcium Level 9.2, Corrected Calcium 9.0, Total Bilirubin 0.3, Aspartate Amino Transf (AST/SGOT) 20, Alanine Aminotransferase (ALT/SGPT) 29, Alkaline Phosphatase 84, Troponin I 0.028, B-Typ e Natriuretic Peptide 208.6H, Total Protein 7.1, Albumin 4.2 12/3/19 13:00: Urine Color YELLOW, Urine Clarity CLEAR, Urine pH 5.5, Urine Specific [place] 1.020, Urine Protein NEGATIVE, Urine Glucose (UA) TRACEH, Urine Ketones NEGATIVE, Urine Nitrite NEGATIVE, Urine Bilirubin NEGATIVE, Urine Urobilinogen 0.2, Urine Leukocyte Esterase NEGATIVE, Urine RBC (Auto) NEGATIVE, Urine RBC NONE, Urine WBC 2-5, Urine Squamous Epithelial Cells 5-10, Urine Crystals NONE, Urine Bacteria LARGEH, Urine Casts NONE, Urine Mucus NEGATIVE, Urine Culture Indicated YES 08/16/19 17:27: Troponin I < 0.028 08/17/19 04:20: White Blood Count 8.7, Red Blood Count 3.98L, Hemoglobin 9.5L, Hematocrit 32L, Mean Corpuscular Volume 79L, Mean Corpuscular Hemoglobin 24L, Mean Corpuscular Hemoglobin Concent 30L, Red Cell Distribution Width 17.7H, Platelet Count 242, Mean Platelet Volume 9.7, Neutrophils (%) (Auto) 66, Lymphocytes (%) (Auto) 20, Monocytes (%) (Auto) 11, Eosinophils (%) (Auto) 3, Basophils (%) (Auto) 1, Neutrophils # (Auto) 5.7, Lymphocytes # (Auto) 1.8, Monocytes # (Auto) 0.9, Eosinophils # (Auto) 0.3, Basophils # (Auto) 0.0, Sodium Level 141, Potassium Level 3.7, Chloride Level 103, Carbon Dioxide Level 24, Anion Gap 14, Blood Urea Nitrogen 19H, Creatinine 0.71, Estimat Glomerular Filtration Rate > 60, BUN/Creatinine Ratio 27, Glucose Level 172H, Calcium Level 9.4, Corrected Calcium 9.5, Total Bilirubin 0.4, Aspartate Amino Transf (AST/SGOT) 18, Alanine Aminotransferase (ALT/SGPT) 22, Alkaline Phosphatase 80, Total Protein 6.7, Albumin 3.9 Microbiology 08/16/19 Urine Culture - Preliminary, Resulted Gram Negative [facility] NAME: BRYSON RAY [facility] REC#: [id number] PT STATUS: REG ER : 1955 PHYSICIAN: DEBBIE TAYLOR APRN ADMIT DATE: 08/16/19/ER Draft Date of Exam:08/16/19 CT ANGIO CHEST W PROCEDURE: CT angiography of the chest with contrast. TECHNIQUE: Multiple contiguous axial images were obtained through the chest after uneventful bolus administration of intravenous contrast. 3D reconstructed CTA MIP acquisitions were also performed. Auto Exposure Controls were utilized during the CT exam to meet ALARA standards for radiation dose reduction. INDICATION: Difficulty breathing, worsening in severity. FINDINGS: There is no intraluminal pulmonary arterial filling defects. There is no pulmonary arterial embolus. The thoracic aorta patent and nonaneurysmal. There is no pericardial effusion. There is minute right and small left pleural effusions layering less than 1 cm without evidence for their loculation. There is a mediastinal lymphadenopathy. A right superior paratracheal node is 2.4 x 1.5 cm. Left prevascular lymph nodes 1.2 cm in diameter. Anterior mediastinal nodes anterior to the cava 1.2 x 1.0 cm. A lower right paratracheal mediastinal node 2.3 x 1.4 cm. Subcarinal node 2.4 x 1.4 cm. There is bilateral hilar lymph nodes greater left the largest on the left measured 2.2 x 1.3 cm. No pathological appearing axillary nodes. The visualized supraclavicular fossa unremarkable. The visualized portions of the thyroid unremarkable. Septal thickening and groundglass opacity suggestive of at least mild interstitial edema. There are a few scattered subpleural pulmonary nodules less than 1 cm indeterminate. No dominant lung mass. No suspicious lytic or sclerotic bone lesion. Visualized upper abdomen reveals intact adrenal glands and nonfocal partially visualized liver. IMPRESSION: 1. Negative for PE or other acute thoracic vascular abnormality. 2. Indeterminate mediastinal and hilar lymphadenopathy may be reactive or neoplastic. If there is no resolution at follow-up within 1-2 months time would suggest proceeding with metabolic PET/CT. 2. Pulmonary interstitial opacities favoring edema however pneumonia could not be excluded. There are small amounts of pleural fluid and an upper limits heart size. Dictated on workstation # [id number] Dict: 08/16/19 1251 Trans: 08/16/19 1303 DESIRAE [id number] Interpreted by: NICKY LIM Electronically signed by: A/P-Cardiology Assessment/Admission Diagnosis Progressive dyspnea with orthopnea Possible pneumonia - management per medical services Negative for PE or other acute thoracic vascular abnormality. Indeterminate mediastinal and hilar lymphadenopathy may be reactive or neoplastic. If there is no resolution at follow-up within 1-2 months time would suggest proceeding with metabolic PET/CT. Pulmonary interstitial opacities favoring edema however pneumonia could not be excluded. There are small amounts of pleural fluid and an upper limits heart s ize per CT of the chest on 08-16-19 CAD. Last card cath of 03/08/19: 1) Patent previously place stents (January 2019): 2.25x12 Xience to ostial and prox RI, patent Alp Xience 2.5x8 stent to prox LAD and Alp Xience 3x18 stent in mid RCA; 2) Successful stenting of the prox LCX with overlapping 2.5x15 (distal) and 2.75x8 (prox) Alp Xience stents and balloon angioplasty of mid LCX; 3) LVEDP 13 mmHg and LVEF 65-70% Malignant hypertension, associated with encephalopathy, in November 2017 MRA of head and neck on 12/05/17: no significant abnormality reported Carotid u/s of 03/04/19 showed minimal carotid plaque Normal TSH on 12/04/17 (0.96) PAD. Peripheral angio of May 2016:Bilateral ostial/proximal anterior tibial artery occlusions with reconstitution of the dorsalis pedis via collaterals. S/p balloon angioplasty of the R ant tib by Dr Li at [facility] in May 2016 Echo on 12/07/17: LVEF 60-65%,mild MR, grade I diastolic dysfunction Chronic, recurrent diabetic ulcer of the R great toe, managed by Dr Sarmiento, now resolved DMII with chronic diabetic neuropathy in glove and stocking distribution Quit smoking in the 1989 Elevated BMI of approx 33 Discussion and Recomendations Acute on chronic diastolic AHF Echocardiogram to eval structure and function Continue Plavix and ASA d/t known CAD with recent intervention (February 2019) Continue antihypertensives Diuretics as indicated Monitor lab closely Replace electrolytes as indicated Further recs will be based on her hospital course DUANE CAMPBELL Aug 16, 2019 15:23 POS
[2019-08-16 15:43] VITALS: BP 173/76
--- NOTE | 2019-08-16 16:01 | Pulmonary Consultation ---
History of Present Illness History of Present Illness Date of Admission Allergies and Home Medications Allergies Coded Allergies: No Known Drug Allergies (Unverified , 01/19/11) Home Medications Albuterol/Ipratropium 4 Gm Aero, 1 PUFF IH QID PRN for SHORTNESS OF BREATH, (Reported) Aspirin 81 Mg Tab.chew, 81 MG PO DAILY, (Reported) Atorvastatin Calcium 40 Mg Tablet, 40 MG PO HS, (Reported) Bacillus Coagulans 1 Each Tab.chew, 2 TAB.CHEW PO DAILY, (Reported) Clopidogrel Bisulfate 75 Mg Tablet, 75 MG PO DAILY, (Reported) Enalapril Maleate 20 Mg Tablet, 20 MG PO BID, (Reported) Gabapentin 300 Mg Capsule, 900 MG PO 0800,1500,2100, (Reported) TAKES 3 (300 MG) CAPSULES Glimepiride 4 Mg Tablet, 8 MG PO DAILY, (Reported) TAKES 2 (4 MG) TABLETS Hydralazine HCl 50 Mg Tablet, 50 MG PO 0800,1500,2100, (Reported) Ibuprofen 200 Mg Tablet, 400 MG PO TID PRN for PAIN-MILD (1-4), (Reported) Insulin Aspart 300 Units/3 Ml Solution, UNITS SC BID WITH MEALS, (Reported) USE 12 UNITS THEN RE CHECK BLOOD SUGAR IN 30 MINUTES AND GIVE ADDITIONAL 10 UNITS IF BLOOD SUGAR > 200 Insulin Degludec 100 Unit/1 Ml Insuln.pen, 32 UNITS SC HS, (Reported) Metformin HCl 500 Mg Tab.er.24h, 2,000 MG PO HS, (Reported) TAKES 4 (500MG) TABLETS Metoprolol Succinate 200 Mg Tab.er.24h, 200 MG PO DAILY, (Reported) Pantoprazole Sodium 20 Mg Tablet.dr, 20 MG PO DAILY, (Reported) Tramadol HCl 50 Mg Tablet, 50 MG PO HS, (Reported) Tramadol HCl 50 Mg Tablet, 50 MG PO BID PRN for PAIN-MODERATE (5-7), (Reported) Past Gmtywzi-Sorulc-Pvotss Hx Patient Social History Alcohol Use: Denies Use Recreational Drug Use: No Smoking Status: Former Smoker Type Used: Cigarettes Former Smoker, Quit: Apr 27, 1990 2nd Hand Smoke Exposure: Yes Recent Foreign Travel: No Contact w/Someone Who Travel: No Recent Infectious Disease Expo: No Recent Hopitalizations: No Physical Abuse: No Sexual Abuse: No Immunizations Up To Date Tetanus Booster (TDap): Unknown PED Vaccines UTD: No Date of Pneumonia Vaccine: Oct 15, 2018 Date of Influenza Vaccine: Jun 14, 2018 Seasonal Allergies Seasonal Allergies: No Past Medical History Surgeries: Yes (right leg vein sx x2, cardiac stent x 3, BONE SHAVED) Coronary Stent, Tubal Ligation Respiratory: No Currently Using CPAP: No Currently Using BIPAP: No Cardiac: Yes (STENTS) Coronary Artery Disease, Hypertension, Peripheral Vascular Neurological: Yes Neuropathy 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 Disorders: No Female 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 Disorders: Denies Genitourinary: Yes UTI-Chronic Gastrointestinal: Yes Gastroesophageal Reflux Musculoskeletal: Yes Fibromyalgia Endocrine: Yes Diabetes, Insulin dep HEENT: No Loss of Vision: Denies Hearing Impairment: Denies Cancer: No Psychosocial: No Integumentary: Yes (diabetic ulcer right foot) Blood Disorders: No Adverse Reaction/Blood Tranf: No Family Medical History Cardiovascular disease 19 MOTHER, G8 BROTHER G8 BROTHER Completed stroke 19 MOTHER, Diabetes mellitus 19 FATHER, 19 MOTHER, G8 BROTHER G8 SISTER FH: brain tumor FH: breast cancer 19 MOTHER, FH: lung cancer FHx: peripheral neuropathy Hypertension 19 FATHER, Lung c 19 FATHER, Myocardial infarction 19 MOTHER, Neuro No Pertinent Family Hx, Hypertension Sepsis Event Evaluation Height, Weight, BMI Height: 5'5.50" Weight: 195lbs. 0.0oz. [id number]; 33.00 BMI Method:Stated Exam Exam Vital Signs Date Time Temp Pulse Resp B/P (MAP) Pulse Ox O2 Delivery O2 Flow Rate FiO2 08/16/19 15:43 36.6 71 94 08/16/19 14:39 71 08/16/19 13:38 69 16 173/76 (120) 94 08/16/19 11:05 36.6 69 16 186/87 (120) 94 Height & Weight Height: 5'5.50" Weight: 195lbs. 0.0oz. 88.792542gc; 33.00 BMI Method:Stated General Appearance: No Apparent Distress, WD/WN HEENT: PERRL/EOMI, TMs Normal Neck: Full Range of Motion, Normal Inspection; No JVD Respiratory: No Accessory Muscle Use, No Respiratory Distress Cardiovascular: Regular Rate, Rhythm, Normal Peripheral Pulses Capillary Refill: Less Than 3 Seconds Neurologic/Psychiatric: Alert, Oriented x3 Skin: Normal Color, Warm/Dry Results Lab Laboratory Tests 08/16/19 11:15 Assessment/Plan Assessment/Plan Acute on chronic diastolic AHF -Pt is currently on RA setting at edge of bed with -SHe states SOB is much better after Lasix -Will transfer to [facility] with tele and continue current tx. -Echocardiogram- pending -Cardiology consulted LAW SANCHEZ DO Aug 16, 2019 16:00 POS
[2019-08-16] MEDS: ENOXAPARIN 40 MG/0.4 ML (LOVENOX) SYR SC SCH (16:43)
[2019-08-16] MEDS ORDERED: RT-ALBUTEROL/IPRATROPIUM 3 ML (DUONEB) VIAL INH PRN (17:00)
--- NOTE | 2019-08-16 17:20 | NUR ---
Report received from Terri RN, patient to room 408, patient oriented to room and call light within reach.
--- NOTE | 2019-08-16 17:39 | Consultation-Cardiology ---
HPI-Cardiology Cardiology Consultation: Date of Consultation 08/16/19 Time Seen by a Provider: 16:30 Date of Admission Attending Physician Nino Bernabe DO Admitting Physician Nino Bernabe DO Consulting Physician DEBORA CARO MD, FACP, FACC HPI: Chief Complaint: CC: Progressive shortness of breath HPI Ms. Ray is a 64 year old female admitted to ICU 2 from the ED with progressive dyspnea, orthopnea, cough which started approx 3 days. She denies any CP. She reports abdominal bloating and epigastric pressure. She denies any LE swelling. She denies any palpitations. She reports an occ feeling of a flip/flop heart beat which is rare. She denies any n/v/d. She denies any fever or chills. She feels her breathing is better. She is concerned she has a UTI. Review of Systems-Cardiology Review of Systems Constitutional: No chills, No fever; malaise Eyes: No vision change Ears/Nose/Throat: No epistaxis, No recent hearing loss Respiratory: As described under HPI Cardiovascular: As described under HPI Gastrointestinal: As described under HPI Genitourinary: No dysuria, No hematuria Musculoskeletal: no symptoms reported Skin: No rash on exposed areas, No ulcerations on exposed areas Psychiatric/Neurological: No seizure, No focal weakness, No syncope Hematologic: No bleeding abnormalities JDM-Iyqyyq-Fuezmq Hx Patient Social History Alcohol Use: Denies Use Recreational Drug Use: No Smoking Status: Former Smoker Type Used: Cigarettes 2nd Hand Smoke Exposure: Yes Recent Foreign Travel: No Recent Infectious Disease Expo: No Hospitalization with Isolation: Denies Immunizations Up To Date Tetanus Booster (TDap): Unknown Date of Pneumonia Vaccine: Oct 15, 2018 Date of Influenza Vaccine: Jun 14, 2019 Past Medical History PMH As described under Assessment. Family Medical History Family Medical History: She reports her mother had CAD, CVA. She reports her father had HTN. She reports 2 brothers who havd CAD. Family History: Cardiovascular disease 19 MOTHER, G8 BROTHER G8 BROTHER Completed stroke 19 MOTHER, Diabetes mellitus 19 FATHER, 19 MOTHER, G8 BROTHER G8 SISTER FH: brain tumor FH: breast cancer 19 MOTHER, FH: lung cancer FHx: peripheral neuropathy Hypertension 19 FATHER, Lung c 19 FATHER, Myocardial infarction 19 MOTHER, Neuro Allergies and Home Medications Allergies Coded Allergies: No Known Drug Allergies (Unverified , 01/19/11) Home Medications Albuterol/Ipratropium 4 Gm Aero, 1 PUFF IH QID PRN for SHORTNESS OF BREATH, (Reported) Aspirin 81 Mg Tab.chew, 81 MG PO DAILY, (Reported) Atorvastatin Calcium 40 Mg Tablet, 40 MG PO HS, (Reported) Bacillus Coagulans 1 Each Tab.chew, 2 TAB.CHEW PO DAILY, (Reported) Clopidogrel Bisulfate 75 Mg Tablet, 75 MG PO DAILY, (Reported) Enalapril Maleate 20 Mg Tablet, 20 MG PO BID, (Reported) Gabapentin 300 Mg Capsule, 900 MG PO 0800,1500,2100, (Reported) TAKES 3 (300 MG) CAPSULES Glimepiride 4 Mg Tablet, 8 MG PO DAILY, (Reported) TAKES 2 (4 MG) TABLETS Hydralazine HCl 50 Mg Tablet, 50 MG PO 0800,1500,2100, (Reported) Ibuprofen 200 Mg Tablet, 400 MG PO TID PRN for PAIN-MILD (1-4), (Reported) Insulin Aspart 300 Units/3 Ml Solution, UNITS SC BID WITH MEALS, (Reported) USE 12 UNITS THEN RE CHECK BLOOD SUGAR IN 30 MINUTES AND GIVE ADDITIONAL 10 UNITS IF BLOOD SUGAR > 200 Insulin Degludec 100 Unit/1 Ml Insuln.pen, 32 UNITS SC HS, (Reported) Metformin HCl 500 Mg Tab.er.24h, 2,000 MG PO HS, (Reported) TAKES 4 (500MG) TABLETS Metoprolol Succinate 200 Mg Tab.er.24h, 200 MG PO DAILY, (Reported) Pantoprazole Sodium 20 Mg Tablet.dr, 20 MG PO DAILY, (Reported) Tramadol HCl 50 Mg Tablet, 50 MG PO HS, (Reported) Tramadol HCl 50 Mg Tablet, 50 MG PO BID PRN for PAIN-MODERATE (5-7), (Reported) Patient Home Medication List Home Medication List Reviewed: Yes Physical Exam-Cardiology Physical Exam Vital Signs/I&O 08/16/19 08/16/19 08/16/19 08/16/19 11:05 13:38 14:00 14:39 Temp 36.6 Pulse 69 69 71 Resp 16 16 B/P (MAP) 186/87 (120) 173/76 (120) Pulse Ox 94 94 O2 Delivery Room Air 08/16/19 08/16/19 15:43 17:13 Temp 36.6 36.3 Pulse 71 68 Resp 20 Pulse Ox 94 95 O2 Delivery Room Air Capillary Refill : Less Than 3 Seconds Constitutional: AAO x 3, well-developed, well-nourished HEENT: PERRL, hearing is well preserved, oral hygience is good Neck: No carotid bruit; carotid pulses are 2 + bilaterally Respiratory: No accessory muscle use, No respiratory distress; chest expansion is symmetric, chest is bilaterally symmetric, other (good air entry) Cardiovascular: regular rate-rhythm; No JVD; S1 and S2 Gastrointestinal: No tender; soft, round, distended, audible bowel sounds Extremities: no lower extremity edema bilateral Neurologic/Psychiatric: grossly intact (moves all extremities) Skin: No rash on exposed areas, No ulcerations on exposed areas Data Review Labs Laboratory Tests 08/16/19 11:15: White Blood Count 9.4, Red Blood Count 3.98L, Hemoglobin 9.4L, Hematocrit 32L, Mean Corpuscular Volume 80, Mean Corpuscular Hemoglobin 24L, Mean Corpuscular Hemoglobin Concent 30L, Red Cell Distribution Width 17.8H, Platelet Count 256, Mean Platelet Volume 9.5, Neutrophils (%) (Auto) 68, Lymphocytes (%) (Auto) 21, Monocytes (%) (Auto) 8, Eosinophils (%) (Auto) 4, Basophils (%) (Auto) 0, Neutrophils # (Auto) 6.3, Lymphocytes # (Auto) 2.0, Monocytes # (Auto) 0.7, Eosinophils # (Auto) 0.3, Basophils # (Auto) 0.0, D-Dimer 0.84H, Sodium Level 139, Potassium Level 4.1, Chloride Level 104, Carbon Dioxide Level 24, Anion Gap 11, Blood Urea Nitrogen 18, Creatinine 0.72, Estimat Glomerular Filtration Rate > 60, BUN/Creatinine Ratio 25, Glucose Level 179H, Calcium Level 9.2, Corrected Calcium 9.0, Total Bilirubin 0.3, Aspartate Amino Transf (AST/SGOT) 20, Alanine Aminotransferase (ALT/SGPT) 29, Alkaline Phosphatase 84, Troponin I 0.028, B- Type Natriuretic Peptide 208.6H, Total Protein 7.1, Albumin 4.2 08/16/19 13:00: Urine Color YELLOW, Urine Clarity CLEAR, Urine pH 5.5, Urine Specific [place] 1.020, Urine Protein NEGATIVE, Urine Glucose (UA) TRACEH, Urine Ketones NEGATIVE, Urine Nitrite NEGATIVE, Urine Bilirubin NEGATIVE, Urine Urobilinogen 0.2, Urine Leukocyte Esterase NEGATIVE, Urine RBC (Auto) NEGATIVE, Urine RBC NONE, Urine WBC 2-5, Urine Squamous Epithelial Cells 5-10, Urine Crystals NONE, Urine Bacteria LARGEH, Urine Casts NONE, Urine Mucus NEGATIVE, Urine Culture I ndicated YES 08/16/19 17:27: A/P-Cardiology Assessment/Admission Diagnosis Progressive dyspnea with orthopnea, probably partly due to mild, acute diastolic CHF Possible pneumonia - management per Medical Services Negative for PE or other acute thoracic vascular abnormality. Indeterminate mediastinal and hilar lymphadenopathy may be reactive or neoplastic. If there is no resolution at follow-up within 1-2 months time would suggest proceeding with metabolic PET/CT. Pulmonary interstitial opacities favoring edema however pneumonia could not be excluded. There are small amounts of pleural fluid and an upper limits heart size per CT of the chest on 08-16-19 CAD. Last card cath of 03/08/19: 1) Patent previously place stents (January 2019): 2.25x12 Xience to ostial and prox RI, patent Alp Xience 2.5x8 stent to prox LAD and Alp Xience 3x18 stent in mid RCA; 2) Successful stenting of the prox LCX with overlapping 2.5x15 (distal) and 2.75x8 (prox) Alp Xience stents and balloon angioplasty of mid LCX; 3) LVEDP 13 mmHg and LVEF 65-70% Malignant hypertension, associated with encephalopathy, in November 2017 MRA of head and neck on 12/05/17: no significant abnormality reported Carotid u/s of 03/04/19 showed minimal carotid plaque Normal TSH on 12/04/17 (0.96) PAD. Peripheral angio of May 2016:Bilateral ostial/proximal anterior tibial artery occlusions with reconstitution of the dorsalis pedis via collaterals. 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
[2019-08-16] MEDS: KCL 10 MEQ TAB (MICRO K) PO SCH (17:56)
--- NOTE | 2019-08-16 19:21 | History & Physical ---
History of Present Illness History of Present Illness Reason for visit/HPI Patient came to the office today complaining of shortness of breath and dyspnea. Ration has trouble walking. Patient at night unable to lie in bed. Patient also having difficulty in breathing sitting in chair. All this started 3 days ago and getting worse. Patient sent out to the emergency room. CAT scan abnormal showing pulmonary edema versus pneumonia. Patient also having hilar lymphadenopathy. Patient told she needs a CAT scan in one 2 months for the chest. Surgeries toe, tubal ligation that did not work, stents coronary, peripheral artery disease Date of Admission Aug 16, 2019 at 13:21 Time Seen by a Provider: 19:16 I consulted on this patient on 08/16/19 19:16 Attending Physician Nino Sutton DO Admitting Physician Nino Sutton DO Consult Allergies and Home Medications Allergies Coded Allergies: No Known Drug Allergies (Unverified , 01/19/11) Home Medications Albuterol/Ipratropium 4 Gm Aero, 1 PUFF IH QID PRN for SHORTNESS OF BREATH, (Reported) Aspirin 81 Mg Tab.chew, 81 MG PO DAILY, (Reported) Atorvastatin Calcium 40 Mg Tablet, 40 MG PO HS, (Reported) Bacillus Coagulans 1 Each Tab.chew, 2 TAB.CHEW PO DAILY, (Reported) Clopidogrel Bisulfate 75 Mg Tablet, 75 MG PO DAILY, (Reported) Enalapril Maleate 20 Mg Tablet, 20 MG PO BID, (Reported) Gabapentin 300 Mg Capsule, 900 MG PO 0800,1500,2100, (Reported) TAKES 3 (300 MG) CAPSULES Glimepiride 4 Mg Tablet, 8 MG PO DAILY, (Reported) TAKES 2 (4 MG) TABLETS Hydralazine HCl 50 Mg Tablet, 50 MG PO 0800,1500,2100, (Reported) Ibuprofen 200 Mg Tablet, 400 MG PO TID PRN for PAIN-MILD (1-4), (Reported) Insulin Aspart 300 Units/3 Ml Solution, UNITS SC BID WITH MEALS, (Reported) USE 12 UNITS THEN RE CHECK BLOOD SUGAR IN 30 MINUTES AND GIVE ADDITIONAL 10 UNITS IF BLOOD SUGAR > 200 Insulin Degludec 100 Unit/1 Ml Insuln.pen, 32 UNITS SC HS, (Reported) Metformin HCl 500 Mg Tab.er.24h, 2,000 MG PO HS, (Reported) TAKES 4 (500MG) TABLETS Metoprolol Succinate 200 Mg Tab.er.24h, 200 MG PO DAILY, (Reported) Pantoprazole Sodium 20 Mg Tablet.dr, 20 MG PO DAILY, (Reported) Tramadol HCl 50 Mg Tablet, 50 MG PO HS, (Reported) Tramadol HCl 50 Mg Tablet, 50 MG PO BID PRN for PAIN-MODERATE (5-7), (Reported) Patient Home Medication List Home Medication List Reviewed: Yes Past Rurjbip-Ytrjvl-Nldkgo Hx Past Med/Social Hx: Reviewed Nursing Past Med/Soc Hx Patient Social History Marrital Status: Alcohol Use: Denies Use Recreational Drug Use: No Smoking Status: Former Smoker Former Smoker, Quit: Apr 27, 1990 Type Used: Cigarettes 2nd Hand Smoke Exposure: Yes Recent Foreign Travel: No Contact w/other who traveled: No Recent Hopitalizations: No Recent Infectious Disease Expo: No Immunizations Up To Date Tetanus Booster (TDap): Unknown Pediatric: No Date of Pneumonia Vaccine: Oct 15, 2018 Date of Influenza Vaccine: Jun 14, 2019 Seasonal Allergies Seasonal Allergies: No Past Medical History Surgeries: Coronary Stent, Tubal Ligation Respiratory: Pneumonia Currently Using CPAP: No Currently Using BIPAP: No Cardiac: Coronary Artery Disease, Hypertension, Peripheral Vascular Neurological: Neuropathy 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: No Female 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 Disorders: Denies Genitourinary: UTI-Chronic Gastrointestinal: Gastroesophageal Reflux Musculoskeletal: Fibromyalgia Endocrine: Diabetes, Insulin dep Loss of Vision: Denies Hearing Impairment: Denies History of Blood Disorders: No Adverse Reaction to Blood [place]: No Family History Cardiovascular disease 19 MOTHER, G8 BROTHER G8 BROTHER Completed stroke 19 MOTHER, Diabetes mellitus 19 FATHER, 19 MOTHER, G8 BROTHER G8 SISTER FH: brain tumor FH: breast cancer 19 MOTHER, FH: lung cancer FHx: peripheral neuropathy Hypertension 19 FATHER, Lung c 19 FATHER, Myocardial infarction 19 MOTHER, Neuro No Pertinent Family Hx, Hypertension Review of Systems Constitutional: no symptoms reported EENTM: no symptoms reported Respiratory: dyspnea on exertion, orthopnea, short of breath Cardiovascular: no symptoms reported Gastrointestinal: no symptoms reported Genitourinary: no symptoms reported Physical Exam Vital Signs Vital Signs - First Documented 08/16/19 08/16/19 11:05 14:00 Temp 36.6 Pulse 69 Resp 16 B/P (MAP) 186/87 (120) Pulse Ox 94 O2 Delivery Room Air Capillary Refill : Less Than 3 Seconds Height, Weight, BMI Height: 5'5.50" Weight: 195lbs. 0.0oz. 88.231516ul; 33.42 BMI Method:Stated General Appearance: No Apparent Distress, WD/WN Eyes: Bilateral Eye Normal Inspection HEENT: Normal ENT Inspection Neck: Full Range of Motion, Normal Inspection Respiratory: No Accessory Muscle Use, No Respiratory Distress, Decreased Breath Sounds Cardiovascular: Regular Rate, Rhythm, No Murmur Gastrointestinal: Non Tender, Soft Assessment/Plan Assessment and Plan Dyspnea. Pulmonary edema versus pneumonia. Hilar lymphadenopathy. Hypertension. Mild acute diastolic congestive heart failure. Coronary artery disease. Hypertension. Peripheral artery disease. Diabetes Admission Diagnosis Admission Status: Inpatient Order (span 2 midnights) Reason for Inpatient Admission: Dyspnea. Short of breath. Abnormal CAT scan of the chest. Diabetes. Coronary artery disease Clinical Quality Measures DVT/VTE Risk/Contraindication: Risk Factor Score Per Nursin RFS Level Per Nursing on Admit: 4+=Very High Contraindications-Pharm: Other *list below* NINO SUTTON DO Aug 16, 2019 19:21 POS
[2019-08-16] MEDS: RT-ALBUTEROL/IPRATROPIUM 3 ML (DUONEB) VIAL INH SCH (19:49)
[2019-08-16 21:22] VITALS: BP 180/74
[2019-08-16] MEDS: AMOXICILLIN 500 MG (POLYMOX) CAP PO SCH (21:23)
[2019-08-16] MEDS: GABAPENTIN 300 MG (NEURONTIN) CAP PO SCH (21:24)
[2019-08-16] MEDS: hydrALAZINE (APRESOLINE) 25 MG TAB PO SCH (21:24)
[2019-08-16] MEDS: ENALAPRIL 10 MG (VASOTEC) TAB PO SCH (21:24)
[2019-08-16] MEDS: CATHETER FLUSH 10 ML SYR IV SCH (21:25)
--- NOTE | 2019-08-16 21:36 | NUR ---
1914-dr. rodgers on floor to see pt, verbal orders received this rn repeated orders back & dr. rodgers confirmed these orders.
[2019-08-16] MEDS ORDERED: CATHETER FLUSH 10 ML SYR IV SCH (22:00)
[2019-08-17 00:02] VITALS: BP 158/74
[2019-08-17 04:14] VITALS: BP 165/72
[2019-08-17 04:38] LABS: BASOPHILS % (AUTO) 1 % (0-10); EOSINOPHILS # (AUTO) 0.3 10^3/uL (0.0-0.3); EOSINOPHILS % (AUTO) 3 % (0-10); HEMATOCRIT 32 % (35-52); HEMOGLOBIN 9.5 G/DL (11.5-16.0); LYMPHOCYTES # (AUTO) 1.8 X 10^3 (1.0-4.0); LYMPHOCYTES % (AUTO) 20 % (12-44); MEAN CORPUSCULAR HEMOGLOBIN 24 PG (25-34); MEAN CORPUSCULAR HGB CONC 30 G/DL (32-36); MEAN CORPUSCULAR VOLUME 79 FL (80-99); MEAN PLATELET VOLUME 9.7 FL (7.4-10.4); MONOCYTES # (AUTO) 0.9 X 10^3 (0.0-1.0); MONOCYTES % (AUTO) 11 % (0-12); NEUTROPHILS # (AUTO) 5.7 X 10^3 (1.8-7.8); NEUTROPHILS % (AUTO) 66 % (42-75); PLATELET COUNT 242 10^3/uL (130-400); RED CELL DISTRIBUTION WIDTH 17.7 % (10.0-14.5); WHITE BLOOD COUNT 8.7 10^3/uL (4.3-11.0)
[2019-08-17 04:59] LABS: ALANINE AMINOTRANSFERASE 22 U/L (0-55); ALBUMIN 3.9 GM/DL (3.2-4.5); ALKALINE PHOSPHATASE 80 U/L (40-136); BILIRUBIN,TOTAL 0.4 MG/DL (0.1-1.0); BUN/CREATININE RATIO 27; CALCIUM 9.4 MG/DL (8.5-10.1); CARBON DIOXIDE 24 MMOL/L (21-32); CHLORIDE 103 MMOL/L (98-107); CREATININE SERUM 0.71 MG/DL (0.60-1.30); GFR ESTIMATED > 60; GLUCOSE 172 MG/DL (70-105); POTASSIUM 3.7 MMOL/L (3.6-5.0); SODIUM 141 MMOL/L (135-145); TOTAL PROTEIN 6.7 GM/DL (6.4-8.2)
[2019-08-17] MEDS: KCL 10 MEQ TAB (MICRO K) PO SCH ×2 (06:59→15:27)
[2019-08-17] MEDS: CATHETER FLUSH 10 ML SYR IV SCH ×3 (06:59→20:30)
[2019-08-17] MEDS ORDERED: FUROSEMIDE 40 MG/4 ML INJ (LASIX) IV SCH (07:00)
[2019-08-17] MEDS: RT-ALBUTEROL/IPRATROPIUM 3 ML (DUONEB) VIAL INH SCH (07:01)
--- NOTE | 2019-08-17 07:57 | Progress Note ---
Subjective Time Seen by a Provider: 07:54 Subjective/Events-last exam Patient feeling better today. Patient states Lasix helped her much. Patient states she urinated much has receiving the Lasix. Patient does not like albuterol treatments. Patient refused them. (xopenex when necessary ordered Objective Exam Vital Signs Date Time Temp Pulse Resp B/P (MAP) Pulse Ox O2 Delivery O2 Flow Rate FiO2 08/17/19 07:01 95 Room Air 08/17/19 04:14 36.4 69 18 165/72 (103) 93 Room Air 08/17/19 01:00 80 08/17/19 00:02 36.9 80 20 158/74 (102) 94 Room Air 08/16/19 21:22 76 180/74 (109) 08/16/19 20:50 Room Air 08/16/19 19:50 96 Room Air 08/16/19 19:37 37.1 74 20 95 Room Air 08/16/19 19:01 74 08/16/19 17:13 36.3 68 20 95 Room Air 08/16/19 15:43 36.6 71 94 08/16/19 14:39 71 08/16/19 14:00 Room Air 08/16/19 13:38 69 16 173/76 (120) 94 08/16/19 11:05 36.6 69 16 186/87 (120) 94 I & O 08/17/19 07:00 Intake Total 840 ml Output Total 1375 ml Balance -535 ml Capillary Refill : Less Than 3 Seconds General Appearance: No Apparent Distress HEENT: Normal ENT Inspection Neck: Full Range of Motion, Normal Inspection Respiratory: Chest Non Tender, Lungs Clear, No Accessory Muscle Use, No Respiratory Distress Cardiovascular: Regular Rate, Rhythm, No Murmur Gastrointestinal: non tender, soft Results Lab Laboratory Tests 08/16/19 11:15 08/17/19 04:20 Laboratory Tests 08/16/19 11:15: White Blood Count 9.4, Red Blood Count 3.98L, Hemoglobin 9.4L, Hematocrit 32L, Mean Corpuscular Volume 80, Mean Corpuscular Hemoglobin 24L, Mean Corpuscular Hemoglobin Concent 30L, Red Cell Distribution Width 17.8H, Platelet Count 256, Mean Platelet Volume 9.5, Neutrophils (%) (Auto) 68, Lymphocytes (%) (Auto) 21, Monocytes (%) (Auto) 8, Eosinophils (%) (Auto) 4, Basophils (%) (Auto) 0, Neutrophils # (Auto) 6.3, Lymphocytes # (Auto) 2.0, Monocytes # (Auto) 0.7, Eosinophils # (Auto) 0.3, Basophils # (Auto) 0.0, D-Dimer 0.84H, Sodium Level 139, Potassium Level 4.1, Chloride Level 104, Carbon Dioxide Level 24, Anion Gap 11, Blood Urea Nitrogen 18, Creatinine 0.72, Estimat Glomerular Filtration Rate > 60, BUN/Creatinine Ratio 25, Glucose Level 179H, Calcium Level 9.2, Corrected Calcium 9.0, Total Bilirubin 0.3, Aspartate Amino Transf (AST/SGOT) 20, Alanine Aminotransferase (ALT/SGPT) 29, Alkaline Phosphatase 84, Troponin I 0.028, B- Type Natriuretic Peptide 208.6H, Total Protein 7.1, Albumin 4.2 08/16/19 13:00: Urine Color YELLOW, Urine Clarity CLEAR, Urine pH 5.5, Urine Specific [place] 1.020, Urine Protein NEGATIVE, Urine Glucose (UA) TRACEH, Urine Ketones NEGA TIVE, Urine Nitrite NEGATIVE, Urine Bilirubin NEGATIVE, Urine Urobilinogen 0.2, Urine Leukocyte Esterase NEGATIVE, Urine RBC (Auto) NEGATIVE, Urine RBC NONE, Urine WBC 2-5, Urine Squamous Epithelial Cells 5-10, Urine Crystals NONE, Urine Bacteria LARGEH, Urine Casts NONE, Urine Mucus NEGATIVE, Urine Culture Indicated YES 08/16/19 17:27: Troponin I < 0.028 08/17/19 04:20: White Blood Count 8.7, Red Blood Count 3.98L, Hemoglobin 9.5L, Hematocrit 32L, Mean Corpuscular Volume 79L, Mean Corpuscular Hemoglobin 24L, Mean Corpuscular Hemoglobin Concent 30L, Red Cell Distribution Width 17.7H, Platelet Count 242, Mean Platelet Volume 9.7, Neutrophils (%) (Auto) 66, Lymphocytes (%) (Auto) 20, Monocytes (%) (Auto) 11, Eosinophils (%) (Auto) 3, Basophils (%) (Auto) 1, Neutrophils # (Auto) 5.7, Lymphocytes # (Auto) 1.8, Monocytes # (Auto) 0.9, Eosinophils # (Auto) 0.3, Basophils # (Auto) 0.0, Sodium Level 141, Potassium Level 3.7, Chloride Level 103, Carbon Dioxide Level 24, Anion Gap 14, Blood Urea Nitrogen 19H, Creatinine 0.71, Estimat Glomerular Filtration Rate > 60, BUN/Creatinine Ratio 27, Glucose Level 172H, Calcium Level 9.4, Corrected Ca lcium 9.5, Total Bilirubin 0.4, Aspartate Amino Transf (AST/SGOT) 18, Alanine Aminotransferase (ALT/SGPT) 22, Alkaline Phosphatase 80, Total Protein 6.7, Albumin 3.9 Assessment/Plan Assessment/Plan Assess & Plan/Chief Complaint Dyspnea better. Pulmonary edema improved. Diabetes. No chest pain Clinical Quality Measures Admission Status Admission Dx Dyspnea. Pulmonary edema versus pneumonia. Hilar lymphadenopathy. Hypertension. Mild acute diastolic congestive heart failure. Coronary artery disease. Hypertension. Peripheral artery disease. Diabetes DVT/VTE Risk/Contraindication: Risk Factor Score Per Nursin RFS Level Per Nursing on Admit: 4+=Very High Contraindications-Pharm: Other *list below* TAYO SUTTON DO Aug 17, 2019 07:57 POS
[2019-08-17 08:00] VITALS: BP 194/81
[2019-08-17] MEDS ORDERED: inSUlin ASPART (NovoLOG) 1 UNIT/0.01 ML (CHARGE PER UNIT) SC SCH (08:00)
[2019-08-17] MEDS ORDERED: FUROSEMIDE 40 MG/4 ML INJ (LASIX) IVP ONE (08:00)
[2019-08-17] MEDS ORDERED: RT-LEVALBUTEROL (XOPENEX) 1.25 MG/3 ML NEB NON-FORMULARY INH PRN (08:00)
[2019-08-17] MEDS: GABAPENTIN 300 MG (NEURONTIN) CAP PO SCH ×3 (08:36→20:20)
[2019-08-17] MEDS: AMOXICILLIN 500 MG (POLYMOX) CAP PO SCH ×3 (08:36→20:25)
[2019-08-17] MEDS: ENALAPRIL 10 MG (VASOTEC) TAB PO SCH ×2 (08:36→20:19)
[2019-08-17] MEDS: CLOPIDOGREL 75 MG (PLAVIX) TABLET PO SCH (08:36)
[2019-08-17] MEDS: hydrALAZINE (APRESOLINE) 25 MG TAB PO SCH ×3 (08:36→20:20)
[2019-08-17] MEDS: ASPIRIN 81 MG CHEW (CHILDREN'S ASA) PO SCH (08:36)
[2019-08-17] MEDS: meTOprolol SUCCINATE 100 MG (TOPROL XL) TAB PO SCH (08:37)
[2019-08-17] MEDS ORDERED: ASPIRIN 81 MG CHEW (CHILDREN'S ASA) PO SCH (09:00)
--- NOTE | 2019-08-17 09:50 | Progress Note - Cardiology ---
Cardiology SOAP Progress Note Subjective: Sitting up on the side of the bed. States she is feeling much better today. No c/o CP or palpitations. SOB is improved. Wants to go home. Objective: I&O/Vital Signs 08/17/19 08/18/19 08/18/19 08/18/19 21:00 00:00 01:00 04:00 Temp 36.0 36.2 Pulse 73 83 70 Resp 18 20 B/P (MAP) 166/73 (104) 178/72 (107) Pulse Ox 93 93 O2 Delivery Room Air Room Air Room Air 08/18/19 07:00 Pulse 72 08/18/19 00:00 Intake Total 2600 ml Output Total 2700 ml Balance -100 ml Weight (Pounds): 195 Weight (Ounces): 0.0 Weight (Calculated Kilograms): 88.722801 Constitutional: AAO x 3, well-developed, well-nourished Respiratory: No accessory muscle use, No respiratory distress; chest expansion is symmetric, chest is bilaterally symmetric, other (good air entry) Cardiovascular: regular rate-rhythm; No JVD; S1 and S2 Gastrointestional: No tender; soft, round, distended, audible bowel sounds Extremities: no lower extremity edema bilateral Neurologic/Psychiatric: grossly intact (moves all extremities) Skin: No rash on exposed areas, No ulcerations on exposed areas Results/Procedures: Labs Laboratory Tests 08/17/19 11:04: Glucometer 327H 08/17/19 16:16: Glucometer 219H 08/17/19 20:09: Glucometer 288H 08/18/19 04:20: B-Type Natriuretic Peptide 87.0 08/18/19 05:25: White Blood Count 8.1, Red Blood Count 4.20L, Hemoglobin 10.0L, Hematocrit 34L, Mean Corpuscular Volume 80, Mean Corpuscular Hemoglobin 24L, Mean Corpuscular Hemoglobin Concent 30L, Red Cell Distribution Width 17.4H, Platelet Count 249, Mean Platelet Volume 9.9, Neutrophils (%) (Auto) 58, Lymphocytes (%) (Auto) 24, Monocytes (%) (Auto) 13H, Eosinophils (%) (Auto) 5, Basophils (%) (Auto) 1, Neutrophils # (Auto) 4.7, Lymphocytes # (Auto) 1.9, Monocytes # (Auto) 1.1H, Eosinophils # (Auto) 0.4H, Basophils # (Auto) 0.0, Sodium Level 137, Potassium Level 4.0, Chloride Level 101, Carbon Dioxide Level 24, Anion Gap 12, Blood Urea Nitrogen 26H, Creatinine 0.86, Estimat Glomerular Filtration Rate > 60, BUN/Creatinine Ratio 30, Glucose Level 283H, Calcium Level 9.2, Corrected Calcium 9.4, Total Bilirubin 0.4, Aspartate Amino Transf (AST/SGOT) 17, Alanine Aminotransferase (ALT/SGPT) 25, Alkaline Phosphatase 83, Total Protein 6.7, Albumin 3.8 08/18/19 06:06: Glucometer 276H Microbiology 08/16/19 Urine Culture - Preliminary, Resulted Escherichia coli A/P: Assessment: Progressive dyspnea with orthopnea, probably partly due to mild, acute diastolic CHF Possible pneumonia - management per Medical Services Echocardiogram of 08-16-19: LVEF 60-65%. Grade 2 diastolic dysfunction. LA mildly dilated. Mild to mod calcified mitral annulus. Aortic valve thickening, consistent with sclerosis. RVSP 23 mmHg. Negative for PE or other acute thoracic vascular abnormality. Indeterminate mediastinal and hilar lymphadenopathy may be reactive or neoplastic. If there is no resolution at follow-up within 1-2 months time would suggest proceeding with metabolic PET/CT. Pulmonary interstitial opacities favoring edema however pneumonia could not be excluded. There are small amounts of pleural fluid and an upper limits heart size per CT of the chest on 08-16-19 CAD. Last card cath of 03/08/19: 1) Patent previously place stents (January 2019): 2.25x12 Xience to ostial and prox RI, patent Alp Xience 2.5x8 stent to prox LAD and Alp Xience 3x18 stent in mid RCA; 2) Successful stenting of the prox LCX with overlapping 2.5x15 (distal) and 2.75x8 (prox) Alp Xience stents and balloon angioplasty of mid LCX; 3) LVEDP 13 mmHg and LVEF 65-70% Malignant hypertension, associated with encephalopathy, in November 2017 MRA of head and neck on 12/05/17: no significant abnormality reported Carotid u/s of 03/04/19 showed minimal carotid plaque Normal TSH on 12/04/17 (0.96) PAD. Peripheral angio of May 2016:Bilateral ostial/proximal anterior tibial artery occlusions with reconstitution of the dorsalis pedis via collaterals. 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
--- NOTE | 2019-08-17 10:13 | Diagnostic Imaging Report ---
INDICATION: Pneumonia and pulmonary edema. TIME OF EXAM: 09:25 a.m. COMPARISON: Correlation is made with prior chest from one day earlier. FINDINGS: The heart size is stable. There is some minimal residual linear density in the lung bases suggestive of minimal atelectasis. No significant infiltrate is identified. No pulmonary edema is identified. No significant effusion is seen. There is some minimal density in the left costophrenic angle which may represent minimal infiltrate or atelectasis. The pulmonary vascularity is normal. There is no pneumothorax. Interstitial changes noted on previous have resolved. IMPRESSION: Improved aeration to the lung bases with improved pulmonary edema. There is minimal residual subsegmental atelectasis in both bases. Dictated by: Dictated on workstation # [id number]
[2019-08-17] MEDS: inSUlin ASPART (NovoLOG) 1 UNIT/0.01 ML (CHARGE PER UNIT) SC SCH ×3 (11:45→20:25)
[2019-08-17 12:00] VITALS: BP 166/75
--- NOTE | 2019-08-17 12:01 | Pulmonary Progress Note ---
Subjective Time Seen by a Provider: 11:59 Subjective/Events-last exam CXR shows improvement. PT is on RA with Sp02 94% Sepsis Event Evaluation Height, Weight, BMI Height: 5'5.50" Weight: 195lbs. 0.0oz. 88.895733vu; 33.42 BMI Method:Stated Exam Exam Vital Signs Date Time Temp Pulse Resp B/P (MAP) Pulse Ox O2 Delivery O2 Flow Rate FiO2 08/17/19 08:00 35.8 70 18 194/81 (118) 94 Room Air 08/17/19 07:01 95 Room Air 08/17/19 06:51 80 08/17/19 04:14 36.4 69 18 165/72 (103) 93 Room Air 08/17/19 01:00 80 08/17/19 00:02 36.9 80 20 158/74 (102) 94 Room Air 08/16/19 21:22 76 180/74 (109) 08/16/19 20:50 Room Air 08/16/19 19:50 96 Room Air 08/16/19 19:37 37.1 74 20 95 Room Air 08/16/19 19:01 74 08/16/19 17:13 36.3 68 20 95 Room Air 08/16/19 15:43 36.6 71 94 08/16/19 14:39 71 08/16/19 14:00 Room Air 08/16/19 13:38 69 16 173/76 (120) 94 I & O 08/17/19 07:00 Intake Total 840 ml Output Total 1375 ml Balance -535 ml Height & Weight Height: 5'5.50" Weight: 195lbs. 0.0oz. 88.761441tg; 33.42 BMI Method:Stated General Appearance: No Apparent Distress HEENT: Normal ENT Inspection Neck: Full Range of Motion, Normal Inspection Respiratory: Chest Non Tender, Lungs Clear, No Accessory Muscle Use, No Respiratory Distress Cardiovascular: Regular Rate, Rhythm, No Murmur Capillary Refill: Less Than 3 Seconds Gastrointestinal: non tender, soft Neurologic/Psychiatric: Alert, Oriented x3 Skin: Normal Color, Warm/Dry Results Lab Laboratory Tests 08/16/19 11:15 08/17/19 04:20 Assessment/Plan Assessment/Plan Acute on chronic diastolic AHF - Doubt PNA -SHe states SOB is much better after Lasix -Echocardiogram -08-16-19: LVEF 60-65%. Grade 2 diastolic dysfunction RVSP 23 mmHg. -Cardiology consulted -Continue LAW Barrera DO Aug 17, 2019 12:01 POS
[2019-08-17] MEDS: ENOXAPARIN 40 MG/0.4 ML (LOVENOX) SYR SC SCH (15:21)
--- NOTE | 2019-08-17 15:28 | Progress Note - Cardiology ---
Cardiology SOAP Progress Note Subjective: Feels better today Shortness of breath and malaise much improved No cp or palp or syncope or swelling Objective: I&O/Vital Signs 08/17/19 08/17/19 08/17/19 08/17/19 04:14 06:51 07:01 08:00 Temp 36.4 35.8 Pulse 69 80 70 Resp 18 18 B/P (MAP) 165/72 (103) 194/81 (118) Pulse Ox 93 95 94 O2 Delivery Room Air Room Air Room Air 08/17/19 08/17/19 08/17/19 09:00 12:00 12:52 Temp 36.9 Pulse 71 71 Resp 18 B/P (MAP) 166/75 (105) Pulse Ox 93 O2 Delivery Room Air Room Air 08/17/19 00:00 Intake Total 640 ml Output Total 1000 ml Balance -360 ml Weight (Pounds): 195 Weight (Ounces): 0.0 Weight (Calculated Kilograms): 88.666533 Constitutional: AAO x 3, well-developed, well-nourished Respiratory: No accessory muscle use, No respiratory distress; chest expansion is symmetric, chest is bilaterally symmetric, other (good air entry) Cardiovascular: regular rate-rhythm; No JVD; S1 and S2 Gastrointestional: No tender; soft, round, distended, audible bowel sounds Extremities: no lower extremity edema bilateral Neurologic/Psychiatric: grossly intact (moves all extremities) Skin: No rash on exposed areas, No ulcerations on exposed areas Results/Procedures: Labs Laboratory Tests 08/16/19 17:27: Troponin I < 0.028 08/17/19 04:20: White Blood Count 8.7, Red Blood Count 3.98L, Hemoglobin 9.5L, Hematocrit 32L, Mean Corpuscular Volume 79L, Mean Corpuscular Hemoglobin 24L, Mean Corpuscular Hemoglobin Concent 30L, Red Cell Distribution Width 17.7H, Platelet Count 242, Mean Platelet Volume 9.7, Neutrophils (%) (Auto) 66, Lymphocytes (%) (Auto) 20, Monocytes (%) (Auto) 11, Eosinophils (%) (Auto) 3, Basophils (%) (Auto) 1, Neutrophils # (Auto) 5.7, Lymphocytes # (Auto) 1.8, Monocytes # (Auto) 0.9, Eosinophils # (Auto) 0.3, Basophils # (Auto) 0.0, Sodium Level 141, Potassium Level 3.7, Chloride Level 103, Carbon Dioxide Level 24, Anion Gap 14, Blood Urea Nitrogen 19H, Creatinine 0.71, Estimat Glomerular Filtration Rate > 60, BUN/Creatinine Ratio 27, Glucose Level 172H, Calcium Level 9.4, Corrected Calcium 9.5, Total Bilirubin 0.4, Aspartate Amino Transf (AST/SGOT) 18, Alanine Aminotransferase (ALT/SGPT) 22, Alkaline Phosphatase 80, Total Protein 6.7, Albumin 3.9 08/17/19 11:04: Glucometer 327H Microbiology 08/16/19 Urine Culture - Preliminary, Resulted Escherichia coli Laboratory Tests 08/16/19 11:15 08/17/19 04:20 A/P: Assessment: Acute diastolic CHF, improving Possible pneumonia - management per Medical Services Echocardiogram of 08-16-19: LVEF 60-65%. Grade 2 diastolic dysfunction. LA mildly dilated. Mild to mod calcified mitral annulus. Aortic valve thickening, consistent with sclerosis. RVSP 23 mmHg. Negative for PE or other acute thoracic vascular abnormality. Indeterminate mediastinal and hilar lymphadenopathy may be reactive or neoplastic. If there is no resolution at follow-up within 1-2 months time would suggest proceeding with metabolic PET/CT. Pulmonary interstitial opacities favoring edema however pneumonia could not be excluded. There are small amounts of pleural fluid and an upper limits heart si ze per CT of the chest on 08-16-19 CAD. Last card cath of 03/08/19: 1) Patent previously place stents (January 2019): 2.25x12 Xience to ostial and prox RI, patent Alp Xience 2.5x8 stent to prox LAD and Alp Xience 3x18 stent in mid RCA; 2) Successful stenting of the prox LCX with overlapping 2.5x15 (distal) and 2.75x8 (prox) Alp Xience stents and balloon angioplasty of mid LCX; 3) LVEDP 13 mmHg and LVEF 65-70% Malignant hypertension, associated with encephalopathy, in November 2017 MRA of head and neck on 12/05/17: no significant abnormality reported Carotid u/s of 03/04/19 showed minimal carotid plaque Normal TSH on 12/04/17 (0.96) PAD. Peripheral angio of May 2016:Bilateral ostial/proximal anterior tibial art fer occlusions with reconstitution of the dorsalis pedis via collaterals. 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
[2019-08-17 16:08] VITALS: BP 170/71
[2019-08-17 20:48] VITALS: BP 172/74
[2019-08-17] MEDS ORDERED: INSULIN DEGLUDEC 32 UNIT SC SCH (21:00)
[2019-08-18] VITALS: BP 166/73
[2019-08-18 04:00] VITALS: BP 178/72
[2019-08-18] MEDS: inSUlin ASPART (NovoLOG) 1 UNIT/0.01 ML (CHARGE PER UNIT) SC SCH ×2 (06:11→10:30)
[2019-08-18] MEDS: KCL 10 MEQ TAB (MICRO K) PO SCH (06:11)
--- NOTE | 2019-08-18 06:11 | Pulmonary Progress Note ---
Subjective Time Seen by a Provider: 06:10 Subjective/Events-last exam Pt appears to be doing better. Sepsis Event Evaluation Height, Weight, BMI Height: 5'5.50" Weight: 195lbs. 0.0oz. 88.025479ay; 33.42 BMI Method:Stated Exam Exam Vital Signs Date Time Temp Pulse Resp B/P (MAP) Pulse Ox O2 Delivery O2 Flow Rate FiO2 08/18/19 01:00 83 08/18/19 00:00 36.0 73 18 166/73 (104) 93 Room Air 08/17/19 21:00 Room Air 08/17/19 20:48 36.6 78 16 172/74 (106) 93 Room Air 08/17/19 19:07 Room Air 08/17/19 19:00 78 08/17/19 16:08 36.5 67 16 170/71 (104) 95 Room Air 08/17/19 12:52 71 08/17/19 12:00 36.9 71 18 166/75 (105) 93 Room Air 08/17/19 09:00 Room Air 08/17/19 08:00 35.8 70 18 194/81 (118) 94 Room Air 08/17/19 07:01 95 Room Air 08/17/19 06:51 80 I & O 08/18/19 07:00 Intake Total 2600 ml Output Total 2700 ml Balance -100 ml Height & Weight Height: 5'5.50" Weight: 195lbs. 0.0oz. 88.596792pq; 33.42 BMI Method:Stated General Appearance: No Apparent Distress HEENT: Normal ENT Inspection Neck: Full Range of Motion, Normal Inspection Respiratory: Chest Non Tender, Lungs Clear, No Accessory Muscle Use, No Res piratory Distress Cardiovascular: Regular Rate, Rhythm, No Murmur Capillary Refill: Less Than 3 Seconds Gastrointestinal: non tender, soft Neurologic/Psychiatric: Alert, Oriented x3 Skin: Normal Color, Warm/Dry Results Lab Laboratory Tests 08/16/19 11:15 08/17/19 04:20 Assessment/Plan Assessment/Plan Acute on chronic diastolic AHF - Doubt PNA -SHe states SOB is much better after Lasix -Echocardiogram -08-16-19: LVEF 60-65%. Grade 2 diastolic dysfunction RVSP 23 mmHg. -Cardiology consulted -Continue Lasix Probable COPD -Quit smoking in the 1989 -Will do pulmonary workup as out pt CXR shows improvement. Will do ambulatory desat test to see if pt qualifies for home 02. LAW SANCHEZ DO Aug 18, 2019 06:11 POS
[2019-08-18] MEDS: CATHETER FLUSH 10 ML SYR IV SCH ×2 (06:12→14:00)
[2019-08-18 06:41] LABS: BASOPHILS % (AUTO) 1 % (0-10); EOSINOPHILS # (AUTO) 0.4 10^3/uL (0.0-0.3); EOSINOPHILS % (AUTO) 5 % (0-10); HEMATOCRIT 34 % (35-52); LYMPHOCYTES # (AUTO) 1.9 X 10^3 (1.0-4.0); LYMPHOCYTES % (AUTO) 24 % (12-44); MEAN CORPUSCULAR HEMOGLOBIN 24 PG (25-34); MEAN CORPUSCULAR HGB CONC 30 G/DL (32-36); MEAN CORPUSCULAR VOLUME 80 FL (80-99); MEAN PLATELET VOLUME 9.9 FL (7.4-10.4); MONOCYTES # (AUTO) 1.1 X 10^3 (0.0-1.0); MONOCYTES % (AUTO) 13 % (0-12); NEUTROPHILS # (AUTO) 4.7 X 10^3 (1.8-7.8); NEUTROPHILS % (AUTO) 58 % (42-75); PLATELET COUNT 249 10^3/uL (130-400); RED CELL DISTRIBUTION WIDTH 17.4 % (10.0-14.5); WHITE BLOOD COUNT 8.1 10^3/uL (4.3-11.0)
[2019-08-18 07:08] LABS: ALANINE AMINOTRANSFERASE 25 U/L (0-55); ALBUMIN 3.8 GM/DL (3.2-4.5); ALKALINE PHOSPHATASE 83 U/L (40-136); BILIRUBIN,TOTAL 0.4 MG/DL (0.1-1.0); BUN/CREATININE RATIO 30; CALCIUM 9.2 MG/DL (8.5-10.1); CARBON DIOXIDE 24 MMOL/L (21-32); CHLORIDE 101 MMOL/L (98-107); CREATININE SERUM 0.86 MG/DL (0.60-1.30); GFR ESTIMATED > 60; GLUCOSE 283 MG/DL (70-105); SODIUM 137 MMOL/L (135-145); TOTAL PROTEIN 6.7 GM/DL (6.4-8.2)
--- NOTE | 2019-08-18 07:38 | Progress Note ---
Subjective Time Seen by a Provider: 07:36 Subjective/Events-last exam Patient not feeling as good today as she did yesterday. Patient states she getting short of breath after Lasix is over. Patient's blood pressure elevated. Patient sugars elevated. Waiting for chest x-ray and BNP Objective Exam Vital Signs Date Time Temp Pulse Resp B/P (MAP) Pulse Ox O2 Delivery O2 Flow Rate FiO2 08/18/19 04:00 36.2 70 20 178/72 (107) 93 Room Air 08/18/19 01:00 83 08/18/19 00:00 36.0 73 18 166/73 (104) 93 Room Air 08/17/19 21:00 Room Air 08/17/19 20:48 36.6 78 16 172/74 (106) 93 Room Air 08/17/19 19:07 Room Air 08/17/19 19:00 78 08/17/19 16:08 36.5 67 16 170/71 (104) 95 Room Air 08/17/19 12:52 71 08/17/19 12:00 36.9 71 18 166/75 (105) 93 Room Air 08/17/19 09:00 Room Air 08/17/19 08:00 35.8 70 18 194/81 (118) 94 Room Air I & O 08/18/19 07:00 Intake Total 3050 ml Output Total 3550 ml Balance -500 ml Capillary Refill : Less Than 3 Seconds General Appearance: No Apparent Distress, WD/WN HEENT: Normal ENT Inspection Neck: Full Range of Motion, Normal Inspection Respiratory: Lungs Clear, No Accessory Muscle Use, No Respiratory Distress Cardiovascular: Regular Rate, Rhythm, No Murmur Gastrointestinal: non tender, soft Results Lab Laboratory Tests 08/18/19 05:25 Laboratory Tests 08/17/19 11:04: Glucometer 327H 08/17/19 16:16: Glucometer 219H 08/17/19 20:09: Glucometer 288H 08/18/19 05:25: White Blood Count 8.1, Red Blood Count 4.20L, Hemoglobin 10.0L, Hematocrit 34L, Mean Corpuscular Volume 80, Mean Corpuscular Hemoglobin 24L, Mean Corpuscular Hemoglobin Concent 30L, Red Cell Distribution Width 17.4H, Platelet Count 249, Mean Platelet Volume 9.9, Neutrophils (%) (Auto) 58, Lymphocytes (%) (Auto) 24, Monocytes (%) (Auto) 13H, Eosinophils (%) (Auto) 5, Basophils (%) (Auto) 1, Neutrophils # (Auto) 4.7, Lymphocytes # (Auto) 1.9, Monocytes # (Auto) 1.1H, Eosinophils # (Auto) 0.4H, Basophils # (Auto) 0.0, Sodium Level 137, Potassium Level 4.0, Chloride Level 101, Carbon Dioxide Level 24, Anion Gap 12, Blood Urea Nitrogen 26H, Creatinine 0.86, Estimat Glomerular Filtration Rate > 60, BU N/Creatinine Ratio 30, Glucose Level 283H, Calcium Level 9.2, Corrected Calcium 9.4, Total Bilirubin 0.4, Aspartate Amino Transf (AST/SGOT) 17, Alanine Aminotransferase (ALT/SGPT) 25, Alkaline Phosphatase 83, Total Protein 6.7, Albumin 3.8 08/18/19 06:06: Glucometer 276H Microbiology 08/16/19 Urine Culture - Preliminary, Resulted Escherichia coli Assessment/Plan Assessment/Plan Assess & Plan/Chief Complaint Dyspnea better. Pulmonary edema improved. Diabetes. No chest pain. . 08/18/19. Hypertension. Diabetes. UTI. Urine culture Escherichia coli. Abdominal pain. Acute diastolic congestive heart failure. Coronary artery disease. Clinical Quality Measures Admission Status Admission Dx Dyspnea. Pulmonary edema versus pneumonia. Hilar lymphadenopathy. Hypertension. Mild acute diastolic congestive heart failure. Coronary artery disease. Hypertension. Peripheral artery disease. Diabetes DVT/VTE Risk/Contraindication: Risk Factor Score Per Nursin RFS Level Per Nursing on Admit: 4+=Very High Contraindications-Pharm: Other *list below* TAYO SUTTON DO Aug 18, 2019 07:38 POS
[2019-08-18] MEDS: hydrALAZINE (APRESOLINE) 25 MG TAB PO SCH (07:59)
[2019-08-18 08:00] VITALS: BP 179/85
[2019-08-18] MEDS: ASPIRIN 81 MG CHEW (CHILDREN'S ASA) PO SCH (08:00)
[2019-08-18] MEDS: ENALAPRIL 10 MG (VASOTEC) TAB PO SCH (08:00)
[2019-08-18] MEDS: GABAPENTIN 300 MG (NEURONTIN) CAP PO SCH (08:00)
[2019-08-18] MEDS: CLOPIDOGREL 75 MG (PLAVIX) TABLET PO SCH (08:00)
[2019-08-18] MEDS: AMOXICILLIN 500 MG (POLYMOX) CAP PO SCH ×2 (08:00→13:21)
[2019-08-18] MEDS: meTOprolol SUCCINATE 100 MG (TOPROL XL) TAB PO SCH (08:00)
--- NOTE | 2019-08-18 08:47 | Progress Note - Cardiology ---
Cardiology SOAP Progress Note Subjective: Lying in bed. States she had an episode of dyspnea this morning which has improved. No c/o CP, palpitations, syncope or near syncope. Wants to go home. Objective: I&O/Vital Signs Weight (Pounds): 195 Weight (Ounces): 0.0 Weight (Calculated Kilograms): 88.863750 Constitutional: AAO x 3, well-developed, well-nourished Respiratory: No accessory muscle use, No respiratory distress; chest expansion is symmetric, chest is bilaterally symmetric, other (good air entry) Cardiovascular: regular rate-rhythm; No JVD; S1 and S2 Gastrointestional: No tender; soft, round, distended, audible bowel sounds Extremities: no lower extremity edema bilateral Neurologic/Psychiatric: grossly intact (moves all extremities) Skin: No rash on exposed areas, No ulcerations on exposed areas Results/Procedures: Labs Microbiology 08/16/19 Urine Culture - Final, Complete Escherichia coli Escherichia coli#2 A/P: Assessment: Acute diastolic CHF, improved Possible pneumonia - management per Medical Services Echocardiogram of 08-16-19: LVEF 60-65%. Grade 2 diastolic dysfunction. LA mildly dilated. Mild to mod calcified mitral annulus. Aortic valve thickening, consistent with sclerosis. RVSP 23 mmHg. Negative for PE or other acute thoracic vascular abnormality. Indeterminate mediastinal and hilar lymphadenopathy may be reactive or neoplastic. If there is no resolution at follow-up within 1-2 months time would suggest proceeding with metabolic PET/CT. Pulmonary interstitial opacities favoring edema however pneumonia could not be excluded. There are small amounts of pleural fluid and an upper limits heart size per CT of the chest on 08-16-19 CAD. Last card cath of 03/08/19: 1) Patent previously place stents (January 2019): 2.25x12 Xience to ostial and prox RI, patent Alp Xience 2.5x8 stent to prox LAD and Alp Xience 3x18 stent in mid RCA; 2) Successful stenting of the prox LCX with overlapping 2.5x15 (distal) and 2.75x8 (prox) Alp Xience stents and balloon angioplasty of mid LCX; 3) LVEDP 13 mmHg and LVEF 65-70% Malignant hypertension, associated with encephalopathy, in November 2017 MRA of head and neck on 12/05/17: no significant abnormality reported Carotid u/s of 03/04/19 showed minimal carotid plaque Normal TSH on 12/04/17 (0.96) PAD. Peripheral angio of May 2016:Bilateral ostial/proximal anterior tibial artery occlusions with reconstitution of the dorsalis pedis via collaterals. 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
[2019-08-18] MEDS ORDERED: FUROSEMIDE 40 MG (LASIX) TAB PO SCH (09:00)
--- NOTE | 2019-08-18 09:16 | Diagnostic Imaging Report ---
INDICATION: Dyspnea and pneumonia. PA and lateral views of the chest are obtained with comparison made to study of 08/17/2019. FINDINGS: Heart size and pulmonary vascularity are within normal limits. There is no pneumothorax or consolidation. Linear atelectasis or scarring is noted in the left base. IMPRESSION: Linear atelectasis and/or scarring is similar to previous study. Dictated by: Dictated on workstation # [id number]
[2019-08-18 10:45] VITALS: BP 161/71
[2019-08-18 12:00] VITALS: BP 159/69
[2019-08-18] MEDS ORDERED: FURO40TA4 PO (14:07)
--- NOTE | 2019-08-19 07:39 | Discharge Summary ---
Diagnosis/Chief Complaint Date of Admission Aug 16, 2019 at 13:21 Date of Discharge Aug 18, 2019 at 15:11 Discharge Date: Aug 18, 2019 Discharge Time: 07:35 Discharge Diagnosis Acute diastolic congestive heart failure. Dyspnea. Orthopnea. Diabetes. Short of breath. Hypertension. Coronary artery disease. Hilar lymphadenopathy to be evaluated later patient told [facility] Patient came to the office today complaining of shortness of breath and dyspnea. Ration has trouble walking. Patient at night unable to lie in bed. Patient also having difficulty in breathing sitting in chair. All this started 3 days ago and getting worse. Patient sent out to the emergency room. CAT scan abnormal showing pulmonary edema versus pneumonia. Patient also having hilar lymphadenopathy. Patient told she needs a CAT scan in one 2 months for the chest. Surgeries toe, tubal ligation that did not work, stents coronary, peripheral artery disease Discharge Summary Consultations Cardiology. Pulmonology Discharge Physical Examination Allergies: Coded Allergies: No Known Drug Allergies (Unverified , 01/19/11) Vitals & I&Os Vital Signs Date Time Temp Pulse Resp B/P (MAP) Pulse Ox O2 Delivery O2 Flow Rate FiO2 08/18/19 14:27 08/18/19 12:11 70 08/18/19 12:00 35.6 20 96 Room [facility] Hospital Course Labs (last 24 hrs) Laboratory Tests 08/16/19 11:15: White Blood Count 9.4, Red Blood Count 3.98L, Hemoglobin 9.4L, Hematocrit 32L, Mean Corpuscular Volume 80, Mean Corpuscular Hemoglobin 24L, Mean Corpuscular Hemoglobin Concent 30L, Red Cell Distribution Width 17.8H, Platelet Count 256, Mean Platelet Volume 9.5, Neutrophils (%) (Auto) 68, Lymphocytes (%) (Auto) 21, Monocytes (%) (Auto) 8, Eosinophils (%) (Auto) 4, Basophils (%) (Auto) 0, Neutrophils # (Auto) 6.3, Lymphocytes # (Auto) 2.0, Monocytes # (Auto) 0.7, Eosinophils # (Auto) 0.3, Basophils # (Auto) 0.0, D-Dimer 0.84H, Sodium Level 139, Potassium Level 4.1, Chloride Level 104, Carbon Dioxide Level 24, Anion Gap 11, Blood Urea Nitrogen 18, Creatinine 0.72, Estimat Glomerular Filtration Rate > 60, BUN/Creatinine Ratio 25, Glucose Level 179H, Calcium Level 9.2, Corrected Calcium 9.0, Total Bilirubin 0.3, Aspartate Amino Transf (AST/SGOT) 20, Alanine Aminotransferase (ALT/SGPT) 29, Alkaline Phosphatase 84, Troponin I 0.028, B- Type Natriuretic Peptide 208.6H, Total Protein 7.1, Albumin 4.2 08/16/19 13:00: Urine Color YELLOW, Urine Clarity CLEAR, Urine pH 5.5, Urine Specific [place] 1.020, Urine Protein NEGATIVE, Urine Glucose (UA) TRACEH, Urine Ketones NEGATIVE, Urine Nitrite NEGATIVE, Urine Bilirubin NEGATIVE, Urine Urobilinogen 0.2, Urine Leukocyte Esterase NEGATIVE, Urine RBC (Auto) NEGATIVE, Urine RBC NONE, Urine WBC 2-5, Urine Squamous Epithelial Cells 5-10, Urine Crystals NONE, Urine Bacteria LARGEH, Urine Casts NONE, Urine Mucus NEGATIVE, Urine Culture Indicated YES 08/16/19 17:27: Troponin I < 0.028 08/17/19 04:20: White Blood Count 8.7, Red Blood Count 3.98L, Hemoglobin 9.5L, Hematocrit 32L, Mean Corpuscular Volume 79L, Mean Corpuscular Hemoglobin 24L, Mean Corpuscular Hemoglobin Concent 30L, Red Cell Distribution Width 17.7H, Platelet Count 242, Mean Platelet Volume 9.7, Neutrophils (%) (Auto) 66, Lymphocytes (%) (Auto) 20, Monocytes (%) (Auto) 11, Eosinophils (%) (Auto) 3, Basophils (%) (Auto) 1, Neutrophils # (Auto) 5.7, Lymphocytes # (Auto) 1.8, Monocytes # (Auto) 0.9, Eosinophils # (Auto) 0.3, Basophils # (Auto) 0.0, Sodium Level 141, Potassium Level 3.7, Chloride Level 103, Carbon Dioxide Level 24, Anion Gap 14, Blood Urea Nitrogen 19H, Creatinine 0.71, Estimat Glomerular Filtration Rate > 60, BUN/Creatinine Ratio 27, Glucose Level 172H, Calcium Level 9.4, Corrected Calcium 9.5, Total Bilirubin 0.4, Aspartate Amino Transf (AST/SGOT) 18, Alanine Aminotransferase (ALT/SGPT) 22, Alkaline Phosphatase 80, Total Protein 6.7, Alb umin 3.9 08/17/19 11:04: Glucometer 327H 08/17/19 16:16: Glucometer 219H 08/17/19 20:09: Glucometer 288H 08/18/19 04:20: B-Type Natriuretic Peptide 87.0 08/18/19 05:25: White Blood Count 8.1, Red Blood Count 4.20L, Hemoglobin 10.0L, Hematocrit 34L, Mean Corpuscular Volume 80, Mean Corpuscular Hemoglobin 24L, Mean Corpuscular Hemoglobin Concent 30L, Red Cell Distribution Width 17.4H, Platelet Count 249, Mean Platelet Volume 9.9, Neutrophils (%) (Auto) 58, Lymphocytes (%) (Auto) 24, Monocytes (%) (Auto) 13H, Eosinophils (%) (Auto) 5, Basophils (%) (Auto) 1, Neutrophils # (Auto) 4.7, Lymphocytes # (Auto) 1.9, Monocytes # (Auto) 1.1H, Eosinophils # (Auto) 0.4H, Basophils # (Auto) 0.0, Sodium Level 137, Potassium Level 4.0, Chloride Level 101, Carbon Dioxide Level 24, Anion Gap 12, Blood Urea Nitrogen 26H, Creatinine 0.86, Estimat Glomerular Filtration Rate > 60, BUN/Creatinine Ratio 30, Glucose Level 283H, Calcium Level 9.2, Corrected Calcium 9.4, Total Bilirubin 0.4, Aspartate Amino Transf (AST/SGOT) 17, Alanine Aminotransferase (ALT/SGPT) 25, Alkaline Phosphatase 83, Total Protein 6.7, Albumin 3.8 08/18/19 06:06: Glucometer 276H 08/18/19 10:22: Glucometer 287H Microbiology 08/16/19 Urine Culture - Preliminary, Resulted Escherichia coli Laboratory Tests 08/16/19 11:15 08/17/19 04:20 08/18/19 05:25 Pending Labs Microbiology Date/Time Source Procedure Growth Status 08/16/19 13:00 Urine Clean Catch Urine Culture - Preliminary Escherichia coli Resulted Laboratory Tests 08/16/19 11:15: White Blood Count 9.4, Red Blood Count 3.98, Hemoglobin 9.4, Hematocrit 32, Mean Corpuscular Volume 80, Mean Corpuscular Hemoglobin 24, Mean Corpuscular Hemoglobin Concent 30, Red Cell Distribution Width 17.8, Platelet Count 256, Mean Platelet Volume 9.5, Neutrophils (%) (Auto) 68, Lymphocytes (%) (Auto) 21, Monocytes (%) (Auto) 8, Eosinophils (%) (Auto) 4, Basophils (%) (Auto) 0, Neutrophils # (Auto) 6.3, Lymphocytes # (Auto) 2.0, Monocytes # (Auto) 0.7, Eosinophils # (Auto) 0.3, Basophils # (Auto) 0.0, D-Dimer 0.84, Sodium Level 139, Potassium Level 4.1, Chloride Level 104, Carbon Dioxide Level 24, Anion Gap 11, Blood Urea Nitrogen 18, Creatinine 0.72, Estimat Glomerular Filtration Rate > 60, BUN/Creatinine Ratio 25, Glucose Level 179, Calcium Level 9.2, Corrected Calcium 9.0, Total Bilirubin 0.3, Aspartate Amino Transf (AST/SGOT) 20, Alanine Aminotransferase (ALT/SGPT) 29, Alkaline Phosphatase 84, Troponin I 0.028, B- Type Natriuretic Peptide 208.6, Total Protein 7.1, Albumin 4.2 08/16/19 13:00: Urine Color YELLOW, Urine Clarity CLEAR, Urine pH 5.5, Urine Specific [place] 1.020, Urine Protein NEGATIVE, Urine Glucose (UA) TRACE, Urine Ketones NEGATIVE, Urine Nitrite NEGATIVE, Urine Bilirubin NEGATIVE, Urine Urobilinogen 0.2, Urine Leukocyte Esterase NEGATIVE, Urine RBC (Auto) NEGATIVE, Urine RBC NONE, Urine WBC 2-5, Urine Squamous Epithelial Cells 5-10, Urine Crystals NONE, Urine Bacteria LARGE, Urine Casts NONE, Urine Mucus NEGATIVE, Urine Culture Indicated YES 08/16/19 17:27: Troponin I < 0.028 08/17/19 04:20: White Blood Count 8.7, Red Blood Count 3.98, Hemoglobin 9.5, Hematocrit 32, Mean Corpuscular Volume 79, Mean Corpuscular Hemoglobin 24, Mean Corpuscular Hemoglobin Concent 30, Red Cell Distribution Width 17.7, Platelet Count 242, Mean Platelet Volume 9.7, Neutrophils (%) (Auto) 66, Lymphocytes (%) (Auto) 20, Monocytes (%) (Auto) 11, Eosinophils (%) (Auto) 3, Basophils (%) (Auto) 1, Neutrophils # (Auto) 5.7, Lymphocytes # (Auto) 1.8, Monocytes # (Auto) 0.9, Eosinophils # (Auto) 0.3, Basophils # (Auto) 0.0, Sodium Level 141, Potassium Level 3.7, Chloride Level 103, Carbon Dioxide Level 24, Anion Gap 14, Blood Urea Nitrogen 19, Creatinine 0.71, Estimat Glomerular Filtration Rate > 60, BUN/Creatinine Ratio 27, Glucose Level 172, Calcium Level 9.4, Corrected Calcium 9.5, Total Bilirubin 0.4, Aspartate Amino Transf (AST/SGOT) 18, Alanine Aminotransferase (ALT/SGPT) 22, Alkaline Phosphatase 80, Total Protein 6.7, Albumin 3.9 08/17/19 11:04: Glucometer 327 08/17/19 16:16: Glucometer 219 08/17/19 20:09: Glucometer 288 08/18/19 04:20: B-Type Natriuretic Peptide 87.0 08/18/19 05:25: White Blood Count 8.1, Red Blood Count 4.20, Hemoglobin 10.0, Hematocrit 34, Mean Corpuscular Volume 80, Mean Corpuscular Hemoglobin 24, Mean Corpuscular Hemoglobin Concent 30, Red Cell Distribution Width 17.4, Platelet Count 249, Mean Platelet Volume 9.9, Neutrophils (%) (Auto) 58, Lymphocytes (%) (Auto) 24, Monocytes (%) (Auto) 13, Eosinophils (%) (Auto) 5, Basophils (%) (Auto) 1, Neutrophils # (Auto) 4.7, Lymphocytes # (Auto) 1.9, Monocytes # (Auto) 1.1, Eosinophils # (Auto) 0.4, Basophils # (Auto) 0.0, Sodium Level 137, Potassium Level 4.0, Chloride Level 101, Carbon Dioxide Level 24, Anion Gap 12, Blood Urea Nitrogen 26, Creatinine 0.86, Estimat Glomerular Filtration Rate > 60, BUN/Creatinine Ratio 30, Glucose Level 283, Calcium Level 9.2, Corrected Calcium 9.4, Total Bilirubin 0.4, Aspartate Amino Transf (AST/SGOT) 17, Alanine Aminotransferase (ALT/SGPT) 25, Alkaline Phosphatase 83, Total Protein 6.7, Albumin 3.8 08/18/19 06:06: Glucometer 276 08/18/19 10:22: Glucometer 287 Discussion & Recommendations Patient felt better. Patient wants to go home. Patient discharged Discharge Home Medications: Active Scripts Active Furosemide 40 Mg Tablet 40 Mg PO DAILY 30 Days Reported Atorvastatin Calcium 40 Mg Tablet 40 Mg PO HS Probiotic (Bacillus Coagulans) 1 Each Tab.chew 2 Tab.chew PO DAILY Advil (Ibuprofen) 200 Mg Tablet 400 Mg PO TID PRN Tramadol HCl 50 Mg Tablet 50 Mg PO BID PRN Pantoprazole Sodium 20 Mg Tablet.dr 20 Mg PO DAILY Novolog Flexpen (Insulin Aspart) 300 Units/3 Ml Solution Units SC BID WITH MEALS USE 12 UNITS THEN RE CHECK BLOOD SUGAR IN 30 MINUTES AND GIVE ADDITIONAL 10 UNITS IF BLOOD SUGAR > 200 Clopidogrel (Clopidogrel Bisulfate) 75 Mg Tablet 75 Mg PO DAILY Metformin HCl ER (Metformin HCl) 500 Mg Tab.er.24h 2,000 Mg PO HS TAKES 4 (500MG) TABLETS Tresiba Flextouch U-100 (Insulin Degludec) 100 Unit/1 Ml Insuln.pen 32 Units SC HS Combivent Respimat Inhal [place] (Albuterol/Ipratropium) 4 Gm Aero 1 Puff IH QID PRN Aspirin 81 Mg Tab.chew 81 Mg PO DAILY Hydralazine HCl 50 Mg Tablet 50 Mg PO 0800,1500,2100 Metoprolol Succinate 200 Mg Tab.er.24h 200 Mg PO DAILY Enalapril Maleate 20 Mg Tablet 20 Mg PO BID Glimepiride 4 Mg Tablet 8 Mg PO DAILY TAKES 2 (4 MG) TABLETS Gabapentin 300 Mg Capsule 900 Mg PO 0800,1500,2100 TAKES 3 (300 MG) CAPSULES Tramadol HCl 50 Mg Tablet 50 Mg PO HS Instructions to patient/family Please see electronic discharge instructions given to patient. Clinical Quality Measures DVT/VTE Risk/Contraindication: Risk Factor Score Per Nursin RFS Level Per Nursing on Admit: 4+=Very High Contraindications-Pharm: Other *list below* TAYO SUTTON DO Aug 19, 2019 07:39 POS
== END 2019-08-18 15:11 | disposition home or self-care (01) | DRG 292 ==
LOC: EDUNIT# 11:02 → ER 11:03 → ICU 13:21 → 4TH 17:05
PROVIDERS: ADMIT Family Medicine; ATTEND Family Medicine
DX: I11.0 Hypertensive heart disease with heart failure (principal); I50.33 Acute on chronic diastolic (congestive) heart failure; N39.0 Urinary tract infection, site not specified; R59.1 Generalized enlarged lymph nodes; B96.20 Unspecified Escherichia coli [E. coli] as the cause of diseases classified elsewhere; E11.40 Type 2 diabetes mellitus with diabetic neuropathy, unspecified; E11.621 Type 2 diabetes mellitus with foot ulcer; L97.519 Non-pressure chronic ulcer of other part of right foot with unspecified severity; I25.10 Atherosclerotic heart disease of native coronary artery without angina pectoris; K21.9 Gastro-esophageal reflux disease without esophagitis; M79.7 Fibromyalgia; I73.9 Peripheral vascular disease, unspecified; I34.0 Nonrheumatic mitral (valve) insufficiency; Z95.5 Presence of coronary angioplasty implant and graft; Z87.891 Personal history of nicotine dependence
CPT/HCPCS: 36415; 71046; 71275; 80053; 81000; 82962; 83880; 84484; 85025; 85379; 87077; 87088; 87186; 93005; 93306; 94640; 94664; 94760; 96374

== ENCOUNTER 2020-04-03 05:48 | Outpatient (RCR) | payer OTHER ==
[~2020-04-03] VITALS: Ht 165 cm; Wt 90.9 kg
[~2020-04-03 05:48] MED LIST changes: +BACI1TAB3 PO; +FURO40TA4 PO; +GABA300C PO; -GLIM4TAB PO; +GLIM4TAB5 PO; +IBUP-30 PO; +INSU100I14 SC; +INSU100I32 SC; +METF-865 PO; -METO-395 PO; +MTP100TCR PO; -OMEP20CA13 PO; +OMEP20CA18 PO; -TRAM50TA2 PO; +TRM50T PO
== END 2020-04-03 13:41 | disposition home or self-care (01) ==
LOC: PREOP 05:48
PROVIDERS: ATTEND Podiatrist Foot & Ankle Surgery
DX: Z01.818 Encounter for other preprocedural examination (principal); M86.8X7 Other osteomyelitis, ankle and foot; Z20.828 Contact with and (suspected) exposure to other viral communicable diseases
CPT/HCPCS: 87635

== ENCOUNTER 2020-04-06 12:32 | Day surgery (SDC) | payer OTHER ==
--- NOTE | 2020-04-03 13:27 | HISTORY AND PHYSICAL ---
DATE OF SERVICE: CHIEF COMPLAINT: To have outpatient surgery by Dr. Sarmiento to have amputation of the right foot third toe distal due to osteomyelitis. ALLERGIC TO MEDICATIONS: Denies. CURRENT MEDICATIONS: Enteric coated baby aspirin, atorvastatin 40 mg, Plavix 75 mg, enalapril 20 mg, furosemide 40 mg, gabapentin 300 mg, glyburide 3 mg, glyburide 5 mg, hydralazine 25 mg t.i.d., metoprolol XL 50 mg, 200 mg once a day, pantoprazole 20 mg each morning, Tresiba 32 units and iron sucrose injection 200 mg as directed. PAST SURGICAL HISTORY: 1. Tubal ligation. 2. Vein surgeries of the legs, right big toe, partial. FAMILY HISTORY: Diabetes, heart disease and lung cancer in family. Denies asthma and TB. REVIEW OF SYSTEMS: EYES, EARS, NOSE AND THROAT: Denies diplopia, tinnitus, sore throat. HEART: Heart has 5 stents. CARDIOVASCULAR: Denies heart murmur, chest pain, shortness of breath. I have consult with sales office manager, Dr. Wray tomorrow. LUNGS: Denies asthma, TB, coughing, congestion, wheezing. GASTROINTESTINAL: Appetite is too good. Sugars 150. Denies blood in stools, diarrhea, constipation. GENITOURINARY: Recently had pyelonephritis. PHYSICAL EXAMINATION: GENERAL: The patient is a white female, well nourished, well developed, in no acute respiratory distress at rest. EARS: No discharge. EYES: No conjunctivitis or icterus. NECK: Thyroid not enlarged. No abnormal cervical lymphadenopathy noted. HEART: Regular rate and rhythm. LUNGS: Clear to auscultation. ABDOMEN: Soft. Liver and spleen nonpalpable. EXTREMITIES: No pretibial edema. ASSESSMENT AND PLAN: The patient is okay to have surgery if okay with sales office manager. Did blood sugar to check the patient's sugar. Job ID: [id number] DocumentID: [id number] Dictated Date: 04/03/2020 08:49:12 [employer] Machine Operator Date: 04/03/2020 09:02:31 Dictated By: TAYO SUTTON DO
[~2020-04-06] VITALS: Ht 165 cm; Wt 90.9 kg
[2020-04-06] VITALS (9 sets, daily range): BP systolic 124–172; BP diastolic 60–91
[2020-04-06] MEDS ORDERED: LACTATED RINGERS 1,000 ML IV PRN (13:04)
[2020-04-06] MEDS ORDERED: VANCOMYCIN INJECTION 1,000 MG in NS (IVPB) 250 ML IV ONE (13:15)
--- OUTSIDE RECORDS SUMMARY | 2020-04-06 13:33 | XMS REPORT | Continuity of Care Document ---
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 RAY PEACOCK R MUD ENGINEER Ot L97.512 NON-PRS CHRONIC ULCER OTH PRT RIGHT FOOT 12/24/2016 RAY PEACOCK R MUD ENGINEER Ot E11.42 TYPE 2 DIABETES MELLITUS WITH DIABETIC P 12/24/2016 MAURICE PEACOCKN R MUD ENGINEER Ot E11.621 TYPE 2 DIABETES MELLITUS WITH FOOT ULCER 12/24/2016 RAY PEACOCK R MUD ENGINEER Ot L97.512 NON-PRS CHRONIC ULCER OTH PRT RIGHT FOOT 12/25/2016 RAY PEACOCK R MUD ENGINEER Ot E11.42 TYPE 2 DIABETES MELLITUS WITH DIABETIC P 12/25/2016 RAY PEACOCK R MUD ENGINEER Ot E11.621 TYPE 2 DIABETES MELLITUS WITH FOOT ULCER 12/25/2016 MAURICE PEACOCKN R MUD ENGINEER Ot L97.512 NON-PRS CHRONIC ULCER OTH PRT RIGHT FOOT 12/25/2016 MAURICE PEACOCKN R MUD ENGINEER Ot E11.42 TYPE 2 DIABETES MELLITUS WITH DIABETIC P 12/25/2016 MAURICE PEACOCKN R MUD ENGINEER Ot E11.621 TYPE 2 DIABETES MELLITUS WITH FOOT ULCER 12/25/2016 AYUSH RAY R MUD ENGINEER Ot L97.512 NON-PRS CHRONIC ULCER OTH PRT RIGHT FOOT 12/26/2016 RAY PEACOCK R MUD ENGINEER Ot E11.42 TYPE 2 DIABETES MELLITUS WITH DIABETIC P 12/26/2016 AYUSH, RAY R MUD ENGINEER Ot E11.621 TYPE 2 DIABETES MELLITUS WITH FOOT ULCER 12/26/2016 AYUSH RAY R MUD ENGINEER Ot L97.512 NON-PRS CHRONIC ULCER OTH PRT RIGHT FOOT 12/27/2016 MAURICE PEACOCKN R MUD ENGINEER Ot E11.42 TYPE 2 DIABETES MELLITUS WITH DIABETIC P 12/27/2016 MAURICE PEACOCKN R MUD ENGINEER Ot E11.621 TYPE 2 DIABETES MELLITUS WITH FOOT ULCER 12/27/2016 AYUSH RAY R MUD ENGINEER Ot L97.512 NON-PRS CHRONIC ULCER OTH PRT RIGHT FOOT 12/28/2016 AYUSH RAY R MUD ENGINEER Ot E11.42 TYPE 2 DIABETES MELLITUS WITH DIABETIC P 12/28/2016 AYUSH RAY R MUD ENGINEER Ot E11.621 TYPE 2 DIABETES MELLITUS WITH FOOT ULCER 12/28/2016 AYUSH RAY R MUD ENGINEER Ot L97.512 NON-PRS CHRONIC ULCER OTH PRT RIGHT FOOT 12/29/2016 RAY PEACOCK R MUD ENGINEER Ot E11.42 TYPE 2 DIABETES MELLITUS WITH DIABETIC P 12/29/2016 RAY PEACOCK R MUD ENGINEER Ot E11.621 TYPE 2 DIABETES MELLITUS WITH FOOT ULCER 12/29/2016 AYUSH RAY R MUD ENGINEER Ot L97.512 NON-PRS CHRONIC ULCER OTH PRT RIGHT FOOT 12/30/2016 MAURICE PEACOCKN R MUD ENGINEER Ot E11.42 TYPE 2 DIABETES MELLITUS WITH DIABETIC P 12/30/2016 RAY PEACOCK R MUD ENGINEER Ot E11.621 TYPE 2 DIABETES MELLITUS WITH FOOT ULCER 12/30/2016 AYUSH RAY R MUD ENGINEER Ot L97.512 NON-PRS CHRONIC ULCER OTH PRT RIGHT FOOT 12/30/2016 RAY PEACOCK R MUD ENGINEER Ot E11.42 TYPE 2 DIABETES MELLITUS WITH DIABETIC P 12/30/2016 AYUSH RAY R MUD ENGINEER Ot E11.621 TYPE 2 DIABETES MELLITUS WITH FOOT ULCER 12/30/2016 AYUSH RAY R MUD ENGINEER Ot L97.512 NON-PRS CHRONIC ULCER OTH PRT RIGHT FOOT 12/31/2016 MAURICE PEACOCKN R MUD ENGINEER Ot E11.42 TYPE 2 DIABETES MELLITUS WITH DIABETIC P 12/31/2016 AYUSH RAY R MUD ENGINEER Ot E11.621 TYPE 2 DIABETES MELLITUS WITH FOOT ULCER 12/31/2016 MAURICE PEACOCKN R MUD ENGINEER Ot L97.512 NON-PRS CHRONIC ULCER OTH PRT RIGHT FOOT 12/31/2016 AYUSH, RAY R MUD ENGINEER Ot E11.42 TYPE 2 DIABETES MELLITUS WITH DIABETIC P 12/31/2016 RAY PEACOCK APRN Ot E11.621 TYPE 2 DIABETES MELLITUS WITH FOOT ULCER 12/31/2016 RAY PEACOCK MUD ENGINEER Ot L97.512 NON-PRS CHRONIC ULCER OTH PRT RIGHT FOOT 01/01/2017 RAY PEACOCK MUD ENGINEER Ot E11.42 TYPE 2 DIABETES MELLITUS WITH DIABETIC P 01/01/2017 RAY PEACOCK APRN Ot E11.621 TYPE 2 DIABETES MELLITUS WITH FOOT ULCER 01/01/2017 RAY PEACOCK MUD ENGINEER Ot L97.512 NON-PRS CHRONIC ULCER OTH PRT RIGHT FOOT 01/01/2017 RAY PEACOCK APRN Ot E11.42 TYPE 2 DIABETES MELLITUS WITH DIABETIC P 01/01/2017 RAY PEACOCK APRN Ot E11.621 TYPE 2 DIABETES MELLITUS WITH FOOT ULCER 01/01/2017 RAY PEACOCK MUD ENGINEER Ot L97.512 NON-PRS CHRONIC ULCER OTH PRT RIGHT FOOT 01/01/2017 LESLEY THOMPSON TAYO Jody Ot 825.25 FX METATARSAL-CLOSED 01/01/2017 LESLEY THOMPSONTAYO Ot E000.8 OTHER EXTERNAL CAUSE STATUS 01/01/2017 LESLEY THOMPSON TAYO Jody Ot E849.0 ACCIDENT IN HOME 01/01/2017 LESLEY THOMPSONTAYO Ot E888.9 FALL NOS 01/01/2017 LESLEY THOMPSON TAYO Vera Ot 571.8 CHRONIC LIVER DIS NEC 01/01/2017 LESLEY THOMPSONTAYO Ot 593.9 RENAL URETERAL DIS NOS 01/01/2017 LESLEY THOMPSONTAYO Ot V76.12 OTH SCREEN MAMMO-MALIGN NEOPLASM OF TERI 01/01/2017 LESLEY THOMPSONTAYO Ot Z12.31 ENCNTR SCREEN MAMMOGRAM FOR MALIGNANT NE 01/01/2017 RAY PEACOCK APRN Ot L97.513 NON-PRS CHRONIC ULCER OTH PRT RIGHT FOOT 01/01/2017 LESLEY THOMPSONTAYO Ot M54.2 CERVICALGIA 01/01/2017 RAY PEACOCK APRN Ot E11.42 TYPE 2 DIABETES MELLITUS WITH DIABETIC P 01/01/2017 RAY PEACOCK APRN Ot E11.621 TYPE 2 DIABETES MELLITUS WITH FOOT ULCER 01/01/2017 AYUSH, RAY R MUD ENGINEER Ot L97.512 NON-PRS CHRONIC ULCER OTH PRT RIGHT FOOT 01/01/2017 RAY PEACOCK R MUD ENGINEER Ot E11.42 TYPE 2 DIABETES MELLITUS WITH DIABETIC P 01/01/2017 RAY PEACOCK R MUD ENGINEER Ot E11.621 TYPE 2 DIABETES MELLITUS WITH FOOT ULCER 01/01/2017 RAY PEACOCK R MUD ENGINEER Ot L97.512 NON-PRS CHRONIC ULCER OTH PRT RIGHT FOOT 01/01/2017 RAY PEACOCK R MUD ENGINEER Ot E11.42 TYPE 2 DIABETES MELLITUS WITH DIABETIC P 01/01/2017 RAY PEACOCK R MUD ENGINEER Ot E11.621 TYPE 2 DIABETES MELLITUS WITH FOOT ULCER 01/01/2017 RAY PEACOCK R MUD ENGINEER Ot L97.512 NON-PRS CHRONIC ULCER OTH PRT RIGHT FOOT 01/01/2017 RAY PEACOCK R MUD ENGINEER Ot E11.42 TYPE 2 DIABETES MELLITUS WITH DIABETIC P 01/01/2017 RAY PEACOCK MUD ENGINEER Ot E11.621 TYPE 2 DIABETES MELLITUS WITH FOOT ULCER 01/01/2017 RAY PEACOCK MUD ENGINEER Ot L97.512 NON-PRS CHRONIC ULCER OTH PRT RIGHT FOOT 01/01/2017 RAY PEACOCK R MUD ENGINEER Ot N18.4 CHRONIC KIDNEY DISEASE, STAGE 4 (SEVERE) 01/01/2017 RAY PEACOCK MUD ENGINEER Ot R60.1 GENERALIZED EDEMA 01/01/2017 RAY PEACOCK MUD ENGINEER Ot E11.42 TYPE 2 DIABETES MELLITUS WITH DIABETIC P 01/01/2017 RAY PEACOCK R MUD ENGINEER Ot E11.621 TYPE 2 DIABETES MELLITUS WITH FOOT ULCER 01/01/2017 RAY PEACOCK MUD ENGINEER Ot L97.512 NON-PRS CHRONIC ULCER OTH PRT RIGHT FOOT 01/02/2017 RAY PEACOCK R MUD ENGINEER Ot E11.42 TYPE 2 DIABETES MELLITUS WITH DIABETIC P 01/02/2017 RAY PEACOCK R MUD ENGINEER Ot E11.621 TYPE 2 DIABETES MELLITUS WITH FOOT ULCER 01/02/2017 RAY PEACOCK R MUD ENGINEER Ot L97.512 NON-PRS CHRONIC ULCER OTH PRT RIGHT FOOT 01/15/2017 GELLENDER DO, TAYO A Ot R06.02 SHORTNESS OF BREATH 01/15/2017 GELLENDER DOTAYO Ot R53.1 WEAKNESS 01/15/2017 GELLENDER DOTAYO Ot R60.9 EDEMA, UNSPECIFIED 01/17/2017 TAYO SUTTON DO Ot 825.25 FX METATARSAL-CLOSED 01/17/2017 TAYO SUTTON DO Ot E000.8 OTHER EXTERNAL CAUSE STATUS 01/17/2017 TAYO SUTTON DO Ot E849.0 ACCIDENT IN HOME [facility]/17/[facility] Ot E888.9 FALL NOS 01/17/2017 TAYO SUTTON DO Ot 571.8 CHRONIC LIVER DIS NEC 01/17/2017 [facility] Ot 593.9 RENAL URETERAL DIS NOS 01/17/2017 [facility] TAYO THOMPSON Ot V76.12 OTH SCREEN MAMMO-MALIGN NEOPLASM OF TERI 01/17/2017 [facility] Z12.31 ENCNTR SCREEN MAMMOGRAM FOR MALIGNANT NE 01/17/2017 RAY PEACOCK APRN Ot L97.513 NON-PRS CHRONIC ULCER OTH PRT RIGHT FOOT 01/17/2017 TAYO SUTTON DO Ot M54.2 CERVICALGIA 01/17/2017 RAY PEACOCK APRN Ot E11.42 TYPE 2 DIABETES MELLITUS WITH DIABETIC P 01/17/2017 RAY PEACOCK APRN Ot E11.621 TYPE 2 DIABETES MELLITUS WITH FOOT ULCER 01/17/2017 RAY PEACOCK APRN Ot L97.512 NON-PRS CHRONIC ULCER OTH PRT RIGHT FOOT 01/17/2017 RAY PEACOCK APRN Ot E11.42 TYPE 2 DIABETES MELLITUS WITH DIABETIC P 01/17/2017 RAY PEACOCK APRN Ot E11.621 TYPE 2 DIABETES MELLITUS WITH FOOT ULCER 01/17/2017 RAY PEACOCK APRN Ot L97.512 NON-PRS CHRONIC ULCER OTH PRT RIGHT FOOT 01/17/2017 RAY PEACOCK APRN Ot E11.42 TYPE 2 DIABETES MELLITUS WITH DIABETIC P 01/17/2017 RAY PEACOCK APRN Ot E11.621 TYPE 2 DIABETES MELLITUS WITH FOOT ULCER 01/17/2017 RAY PEACOCK APRN Ot L97.512 NON-PRS CHRONIC ULCER OTH PRT RIGHT FOOT 01/17/2017 RAY PEACOCK APRN Ot E11.42 TYPE 2 DIABETES MELLITUS WITH DIABETIC P 01/17/2017 RAY PEACOCK APRN Ot E11.621 TYPE 2 DIABETES MELLITUS WITH FOOT ULCER 01/17/2017 AYUSH, RAY R MUD ENGINEER Ot L97.512 NON-PRS CHRONIC ULCER OTH PRT RIGHT FOOT 01/17/2017 RAY PEACOCK MUD ENGINEER Ot N18.4 CHRONIC KIDNEY DISEASE, STAGE 4 (SEVERE) 01/17/2017 RAY PEACOCK MUD ENGINEER Ot R60.1 GENERALIZED EDEMA 01/17/2017 RAY PEACOCK MUD ENGINEER Ot E11.42 TYPE 2 DIABETES MELLITUS WITH DIABETIC P 01/17/2017 RAY PEACOCK MUD ENGINEER Ot E11.621 TYPE 2 DIABETES MELLITUS WITH FOOT ULCER 01/17/2017 RAY PEACOCK MUD ENGINEER Ot L97.512 NON-PRS CHRONIC ULCER OTH PRT RIGHT FOOT 01/17/2017 RAY PEACOCK MUD ENGINEER Ot E11.42 TYPE 2 DIABETES MELLITUS WITH DIABETIC P 01/17/2017 RAY PEACOCK MUD ENGINEER Ot E11.621 TYPE 2 DIABETES MELLITUS WITH FOOT ULCER 01/17/2017 RAY PEACOCK MUD ENGINEER Ot L97.512 NON-PRS CHRONIC ULCER OTH PRT RIGHT FOOT 01/17/2017 GELBECCA DO, TAYO A Ot R06.02 SHORTNESS OF BREATH 01/17/2017 GELLENDER DO TAYO A Ot R53.1 WEAKNESS 01/17/2017 GELKUNALDER DO TAYO A Ot R60.9 EDEMA, UNSPECIFIED 01/19/2017 RAY PEACOCK MUD ENGINEER Ot E11.42 TYPE 2 DIABETES MELLITUS WITH DIABETIC P 01/19/2017 RAY PEACOCK MUD ENGINEER Ot E11.621 TYPE 2 DIABETES MELLITUS WITH FOOT ULCER 01/19/2017 RAY PEACOCK MUD ENGINEER Ot L97.512 NON-PRS CHRONIC ULCER OTH PRT RIGHT FOOT 01/19/2017 RAY PEACOCK MUD ENGINEER Ot N18.4 CHRONIC KIDNEY DISEASE, STAGE 4 (SEVERE) 01/19/2017 RAY PEACOCK MUD ENGINEER Ot R60.1 GENERALIZED EDEMA 01/19/2017 RAY PEACOCK MUD ENGINEER Ot E11.42 TYPE 2 DIABETES MELLITUS WITH DIABETIC P 01/19/2017 RAY PEACOCK MUD ENGINEER Ot E11.621 TYPE 2 DIABETES MELLITUS WITH FOOT ULCER 01/19/2017 RAY PEACOCK MUD ENGINEER Ot L97.512 NON-PRS CHRONIC ULCER OTH PRT RIGHT FOOT 01/19/2017 RAY PEACOCK MUD ENGINEER Ot Z45.2 ENCOUNTER FOR ADJUSTMENT AND MANAGEMENT 01/21/2017 AYUSH, RAY R MUD ENGINEER Ot E11.42 TYPE 2 DIABETES MELLITUS WITH DIABETIC P 01/21/2017 RAY PEACOCK APRN Ot E11.621 TYPE 2 DIABETES MELLITUS WITH FOOT ULCER 01/21/2017 RAY PEACOCK APRN Ot L97.512 NON-PRS CHRONIC ULCER OTH PRT RIGHT FOOT 01/21/2017 RAY PEACOCK MUD ENGINEER Ot N18.4 CHRONIC KIDNEY DISEASE, STAGE 4 (SEVERE) 01/21/2017 RAY PEACOCK MUD ENGINEER Ot R60.1 GENERALIZED EDEMA 02/10/2017 RAY PEACOCK MUD ENGINEER Ot E11.42 TYPE 2 DIABETES MELLITUS WITH DIABETIC P 02/10/2017 RAY PEACOCK MUD ENGINEER Ot E11.621 TYPE 2 DIABETES MELLITUS WITH FOOT ULCER 02/10/2017 RAY PEACOCK APRN Ot L97.512 NON-PRS CHRONIC ULCER OTH PRT RIGHT FOOT 02/10/2017 RAY PEACOCK APRN Ot N18.4 CHRONIC KIDNEY DISEASE, STAGE 4 (SEVERE) 02/10/2017 RAY PEACOCK MUD ENGINEER Ot R60.1 GENERALIZED EDEMA 03/03/2017 GELLENDER DO, TAYO A Ot R06.02 SHORTNESS OF BREATH 03/03/2017 GELLENDER DO, TAYO A Ot R53.1 WEAKNESS 03/03/2017 GELLENDER DO, TAYO A Ot R60.9 EDEMA, UNSPECIFIED 03/06/2017 GELLENDER DO, TAYO A Ot K82.8 OTHER SPECIFIED DISEASES OF GALLBLADDER 03/06/2017 GELLENDER DO, TAYO A Ot R10.11 RIGHT UPPER QUADRANT PAIN 03/17/2017 RAY PEACOCK APRN Ot E11.42 TYPE 2 DIABETES MELLITUS WITH DIABETIC P 03/17/2017 RAY PEACOCK MUD ENGINEER Ot E11.621 TYPE 2 DIABETES MELLITUS WITH FOOT ULCER 03/17/2017 RAY PEACOCK MUD ENGINEER Ot L97.512 NON-PRS CHRONIC ULCER OTH PRT RIGHT FOOT 03/17/2017 RAY PEACOCK APRN Ot Z45.2 ENCOUNTER FOR ADJUSTMENT AND MANAGEMENT 03/18/2017 RAY PEACOCK MUD ENGINEER Ot E11.42 TYPE 2 DIABETES MELLITUS WITH DIABETIC P 03/18/2017 RAY PEACOCK MUD ENGINEER Ot E11.621 TYPE 2 DIABETES MELLITUS WITH FOOT ULCER 03/18/2017 RAY PEACOCK APRN Ot L97.512 NON-PRS CHRONIC ULCER OTH PRT RIGHT FOOT 03/18/2017 RAY PEACOCK MUD ENGINEER Ot Z45.2 ENCOUNTER FOR ADJUSTMENT AND MANAGEMENT 04/01/2017 RAY PEACOCK MUD ENGINEER Ot E11.621 TYPE 2 DIABETES MELLITUS WITH FOOT ULCER 04/01/2017 RAY PEACOCK MUD ENGINEER Ot L97.512 NON-PRS CHRONIC ULCER OTH PRT RIGHT FOOT 04/13/2017 RAY PEACOCK APRN Ot E11.621 TYPE 2 DIABETES MELLITUS WITH FOOT ULCER 04/13/2017 RAY PEACOCK MUD ENGINEER Ot L97.512 NON-PRS CHRONIC ULCER OTH PRT RIGHT FOOT 04/29/2017 RAY PEACOCK MUD ENGINEER Ot E11.42 TYPE 2 DIABETES MELLITUS WITH DIABETIC P 04/29/2017 RAY PEACOCK MUD ENGINEER Ot E11.621 TYPE 2 DIABETES MELLITUS WITH FOOT ULCER 04/29/2017 RAY PEACOCK MUD ENGINEER Ot L97.512 NON-PRS CHRONIC ULCER OTH PRT RIGHT FOOT 04/30/2017 RAY PEACOCK MUD ENGINEER Ot E11.42 TYPE 2 DIABETES MELLITUS WITH DIABETIC P 04/30/2017 RAY PEACOCK MUD ENGINEER Ot E11.621 TYPE 2 DIABETES MELLITUS WITH FOOT ULCER 04/30/2017 RAY PEACOCK MUD ENGINEER Ot L97.512 NON-PRS CHRONIC ULCER OTH PRT RIGHT FOOT 05/06/2017 TAYO SUTTON DO Ot 825.25 FX METATARSAL-CLOSED 05/06/2017 TAYO SUTTON DO Ot E000.8 OTHER EXTERNAL CAUSE STATUS 05/06/2017 TAYO SUTTON DO Ot E849.0 ACCIDENT IN HOME 05/06/2017 TAYO SUTTON DO Ot E888.9 FALL NOS 05/06/2017 [facility] TAYO THOMPSON Ot 571.8 CHRONIC LIVER DIS NEC 05/06/2017 [facility] TAYO THOMPSON Ot 593.9 RENAL URETERAL DIS NOS 05/06/2017 TAYO SUTTON DO Ot V76.12 OTH SCREEN MAMMO-MALIGN NEOPLASM OF TERI 05/06/2017 TAYO SUTTON DO Ot Z12.31 ENCNTR SCREEN MAMMOGRAM FOR MALIGNANT NE 05/06/2017 RAY PEACOCK APRN Ot L97.513 NON-PRS CHRONIC ULCER OTH PRT RIGHT FOOT 05/06/2017 TAYO SUTTON DO Ot M54.2 CERVICALGIA 05/06/2017 RAY PEACOCK MUD ENGINEER Ot E11.42 TYPE 2 DIABETES MELLITUS WITH DIABETIC P 05/06/2017 RAY PEACOCK R MUD ENGINEER Ot E11.621 TYPE 2 DIABETES MELLITUS WITH FOOT ULCER 05/06/2017 RAY PEACOCK R MUD ENGINEER Ot L97.512 NON-PRS CHRONIC ULCER OTH PRT RIGHT FOOT 05/06/2017 RAY PEACOCK MUD ENGINEER Ot E11.42 TYPE 2 DIABETES MELLITUS WITH DIABETIC P 05/06/2017 RAY PEACOCK R MUD ENGINEER Ot E11.621 TYPE 2 DIABETES MELLITUS WITH FOOT ULCER 05/06/2017 RAY PEACOCK R MUD ENGINEER Ot L97.512 NON-PRS CHRONIC ULCER OTH PRT RIGHT FOOT 05/06/2017 RAY PEACOCK R MUD ENGINEER Ot E11.42 TYPE 2 DIABETES MELLITUS WITH DIABETIC P 05/06/2017 RAY PEACOCK R MUD ENGINEER Ot E11.621 TYPE 2 DIABETES MELLITUS WITH FOOT ULCER 05/06/2017 RAY PEACOCK R MUD ENGINEER Ot L97.512 NON-PRS CHRONIC ULCER OTH PRT RIGHT FOOT 05/06/2017 RAY PEACOCK MUD ENGINEER Ot E11.42 TYPE 2 DIABETES MELLITUS WITH DIABETIC P 05/06/2017 RAY PEACOCK R MUD ENGINEER Ot E11.621 TYPE 2 DIABETES MELLITUS WITH FOOT ULCER 05/06/2017 RAY PEACOCK R MUD ENGINEER Ot L97.512 NON-PRS CHRONIC ULCER OTH PRT RIGHT FOOT 05/06/2017 JIDER DO TAYO Jody Ot R06.02 SHORTNESS OF BREATH 05/06/2017 GELLENDER DOTAYO Ot R53.1 WEAKNESS 05/06/2017 GELLENDER DOTAYO Ot R60.9 EDEMA, UNSPECIFIED 05/06/2017 GELLENDER DOTAYO Ot K76.0 FATTY (CHANGE OF) LIVER, NOT ELSEWHERE C 05/06/2017 GELLENDER DOTAYO Ot R10.11 RIGHT UPPER QUADRANT PAIN 05/06/2017 GELLENDER DOTAYO Ot R16.0 HEPATOMEGALY, NOT ELSEWHERE CLASSIFIED 05/06/2017 GELLENDER DOTAYO Ot K82.8 OTHER SPECIFIED DISEASES OF GALLBLADDER 05/06/2017 GELLENDER DOTAYO Ot R10.11 RIGHT UPPER QUADRANT PAIN 05/06/2017 RAY PEACOCK MUD ENGINEER Ot E11.42 TYPE 2 DIABETES MELLITUS WITH DIABETIC P 05/06/2017 RAY PEACOCK R MUD ENGINEER Ot E11.621 TYPE 2 DIABETES MELLITUS WITH FOOT ULCER 05/06/2017 RAY PEACOCK R MUD ENGINEER Ot L97.512 NON-PRS CHRONIC ULCER OTH PRT RIGHT FOOT 05/06/2017 RAY PEACOCK MUD ENGINEER Ot Z45.2 ENCOUNTER FOR ADJUSTMENT AND MANAGEMENT 05/06/2017 RAY PEACOCK MUD ENGINEER Ot E11.42 TYPE 2 DIABETES MELLITUS WITH DIABETIC P 05/06/2017 RAY PEACOCK MUD ENGINEER Ot E11.621 TYPE 2 DIABETES MELLITUS WITH FOOT ULCER 05/06/2017 RAY PEACOCK MUD ENGINEER Ot L97.512 NON-PRS CHRONIC ULCER OTH PRT RIGHT FOOT 05/06/2017 RAY PEACOCK MUD ENGINEER Ot E11.42 TYPE 2 DIABETES MELLITUS WITH DIABETIC P 05/06/2017 RAY PEACOCK R MUD ENGINEER Ot E11.621 TYPE 2 DIABETES MELLITUS WITH FOOT ULCER 05/06/2017 RAY PEACOCK MUD ENGINEER Ot L97.512 NON-PRS CHRONIC ULCER OTH PRT RIGHT FOOT 05/06/2017 RAY PEACOCK MUD ENGINEER Ot E11.42 TYPE 2 DIABETES MELLITUS WITH DIABETIC P 05/06/2017 RAY PEACOCK MUD ENGINEER Ot E11.621 TYPE 2 DIABETES MELLITUS WITH FOOT ULCER 05/06/2017 RAY PEACOCK MUD ENGINEER Ot L97.512 NON-PRS CHRONIC ULCER OTH PRT RIGHT FOOT 05/08/2017 TAYO SUTTON DO Ot E11.40 TYPE 2 DIABETES MELLITUS WITH DIABETIC N 05/08/2017 [facility] TAYO THOMPSON Ot E11.51 TYPE 2 DIABETES W DIABETIC PERIPHERAL AN 05/08/2017 [facility] E11.621 TYPE 2 DIABETES MELLITUS WITH FOOT ULCER 05/08/2017 [facility] TAYO THOMPSON Ot I10 ESSENTIAL (PRIMARY) HYPERTENSION 05/08/2017 [facility] TAYO THOMPSON Ot M19.011 PRIMARY OSTEOARTHRITIS, RIGHT SHOULDER 05/08/2017 [facility] Ot M75.01 ADHESIVE CAPSULITIS OF RIGHT SHOULDER 05/08/2017 [facility] Ot M79.7 FIBROMYALGIA 05/08/2017 [facility] TAYO THOMPSON Ot Z79.82 CARE HOME (CURRENT) USE OF ASPIRIN 05/08/2017 [facility] Z79.84 INTERNET MARKETING EXECUTIVE (CURRENT) USE OF ORAL HYPOGLYC 05/08/2017 LESLEY THOMPSON, TAYO Vera Ot Z79.899 OTHER INTERNET MARKETING EXECUTIVE (CURRENT) DRUG THERAPY 05/08/2017 LESLEY THOMPSON, TAYO Vera Ot K76.0 FATTY (CHANGE OF) LIVER, NOT ELSEWHERE C 05/08/2017 LESLEY THOMPSON, TAYO Vera Ot R10.11 RIGHT UPPER QUADRANT PAIN 05/08/2017 LESLEY THOMPSON, TAYO Vera Ot R16.0 HEPATOMEGALY, NOT ELSEWHERE CLASSIFIED 05/08/2017 LESLEY THOMPSON, TAYO Vera Ot K82.8 OTHER SPECIFIED DISEASES OF GALLBLADDER 05/08/2017 LESLEY THOMPSON, TAYO Vera Ot R10.11 RIGHT UPPER QUADRANT PAIN 05/08/2017 RAY PEACOCK MUD ENGINEER Ot E11.42 TYPE 2 DIABETES MELLITUS WITH DIABETIC P 05/08/2017 RAY PEACOCK MUD ENGINEER Ot E11.621 TYPE 2 DIABETES MELLITUS WITH FOOT ULCER 05/08/2017 RAY PEACOCK MUD ENGINEER Ot L97.512 NON-PRS CHRONIC ULCER OTH PRT RIGHT FOOT 05/08/2017 RAY PEACOCK MUD ENGINEER Ot E11.42 TYPE 2 DIABETES MELLITUS WITH DIABETIC P 05/08/2017 RAY PEACOCK MUD ENGINEER Ot E11.621 TYPE 2 DIABETES MELLITUS WITH FOOT ULCER 05/08/2017 RAY PEACOCK MUD ENGINEER Ot L97.512 NON-PRS CHRONIC ULCER OTH PRT RIGHT FOOT 05/08/2017 RAY PEACOCK MUD ENGINEER Ot E11.42 TYPE 2 DIABETES MELLITUS WITH DIABETIC P 05/08/2017 RYA PEACOCK MUD ENGINEER Ot E11.621 TYPE 2 DIABETES MELLITUS WITH FOOT ULCER 05/08/2017 RAY PEACOCK MUD ENGINEER Ot L97.512 NON-PRS CHRONIC ULCER OTH PRT RIGHT FOOT 05/08/2017 LESLEY THOMPSONTAYO Ot E11.40 TYPE 2 DIABETES MELLITUS WITH DIABETIC N 05/08/2017 LES[facility] THOMPSONTAYO Ot E11.51 TYPE 2 DIABETES W DIABETIC PERIPHERAL AN 05/08/2017 LESLEY THOMPSONTAYO Ot E11.621 TYPE 2 DIABETES MELLITUS WITH FOOT ULCER 05/08/2017 LESLEY TAYO THOMPSON Ot I10 ESSENTIAL (PRIMARY) HYPERTENSION 05/08/2017 LESLEY THOMPSONTAYO Ot M19.011 PRIMARY OSTEOARTHRITIS, RIGHT SHOULDER 05/08/2017 GELTAYO HUDSON DO Ot M75.01 ADHESIVE CAPSULITIS OF RIGHT SHOULDER 05/08/2017 TAYO SUTTON DO Ot M79.7 FIBROMYALGIA 05/08/2017 TAYO SUTTON DO Ot Z79.82 CARE HOME (CURRENT) USE OF ASPIRIN 05/08/2017 TAYO SUTTON DO Ot Z79.84 CARE HOME (CURRENT) USE OF ORAL HYPOGLYC 05/08/2017 TAYO SUTTON DO Ot Z79.899 OTHER INTERNET MARKETING EXECUTIVE (CURRENT) DRUG THERAPY 05/11/2017 RAY PEACOCK MUD ENGINEER Ot E11.42 TYPE 2 DIABETES MELLITUS WITH DIABETIC P 05/11/2017 RAY PEACOCK MUD ENGINEER Ot E11.621 TYPE 2 DIABETES MELLITUS WITH FOOT ULCER 05/11/2017 RAY PEACOCK MUD ENGINEER Ot L97.512 NON-PRS CHRONIC ULCER OTH PRT RIGHT FOOT 05/20/2017 TAYO SUTTON DO Ot Z12.31 ENCNTR SCREEN MAMMOGRAM FOR MALIGNANT NE 05/22/2017 RAY PEACOCK MUD ENGINEER Ot E11.42 TYPE 2 DIABETES MELLITUS WITH DIABETIC P 05/22/2017 RAY PEACOCK MUD ENGINEER Ot E11.621 TYPE 2 DIABETES MELLITUS WITH FOOT ULCER 05/22/2017 RAY PEACOCK MUD ENGINEER Ot L97.512 NON-PRS CHRONIC ULCER OTH PRT RIGHT FOOT 05/25/2017 RAY PEACOCK MUD ENGINEER Ot E11.42 TYPE 2 DIABETES MELLITUS WITH DIABETIC P 05/25/2017 RAY PEACOCK MUD ENGINEER Ot E11.621 TYPE 2 DIABETES MELLITUS WITH FOOT ULCER 05/25/2017 RAY PEACOCK MUD ENGINEER Ot L97.512 NON-PRS CHRONIC ULCER OTH PRT RIGHT FOOT 05/25/2017 RAY PEACOCK MUD ENGINEER Ot E11.42 TYPE 2 DIABETES MELLITUS WITH DIABETIC P 05/25/2017 RAY PEACOCK MUD ENGINEER Ot E11.621 TYPE 2 DIABETES MELLITUS WITH FOOT ULCER 05/25/2017 RAY PEACOCK MUD ENGINEER Ot L97.512 NON-PRS CHRONIC ULCER OTH PRT RIGHT FOOT 05/25/2017 RAY PEACOCK MUD ENGINEER Ot E11.42 TYPE 2 DIABETES MELLITUS WITH DIABETIC P 05/25/2017 RAY PEACOCK MUD ENGINEER Ot E11.621 TYPE 2 DIABETES MELLITUS WITH FOOT ULCER 05/25/2017 RAY PEACOCK MUD ENGINEER Ot L97.512 NON-PRS CHRONIC ULCER OTH PRT RIGHT FOOT 05/25/2017 RAY PEACOCK MUD ENGINEER Ot E11.42 TYPE 2 DIABETES MELLITUS WITH DIABETIC P 05/25/2017 RAY PEACOCK MUD ENGINEER Ot E11.621 TYPE 2 DIABETES MELLITUS WITH FOOT ULCER 05/25/2017 RAY PEACOCK R MUD ENGINEER Ot L97.512 NON-PRS CHRONIC ULCER OTH PRT RIGHT FOOT 05/27/2017 RAY PEACOCK MUD ENGINEER Ot E11.42 TYPE 2 DIABETES MELLITUS WITH DIABETIC P 05/27/2017 RAY PEACOCK MUD ENGINEER Ot E11.621 TYPE 2 DIABETES MELLITUS WITH FOOT ULCER 05/27/2017 RAY PEACOCK MUD ENGINEER Ot L97.512 NON-PRS CHRONIC ULCER OTH PRT RIGHT FOOT 06/01/2017 GELLENDER DO, TAYO Vera Ot K76.0 FATTY (CHANGE OF) LIVER, NOT ELSEWHERE C 06/01/2017 GELLENDER DO, TAYO Jody Ot R10.11 RIGHT UPPER QUADRANT PAIN 06/01/2017 GELLENDER DO, TAYO Vera Ot R16.0 HEPATOMEGALY, NOT ELSEWHERE CLASSIFIED 06/01/2017 GELLENDER DO, TAYO Jody Ot K76.0 FATTY (CHANGE OF) LIVER, NOT ELSEWHERE C 06/01/2017 GELLENDER DO, TAYO A Ot R10.11 RIGHT UPPER QUADRANT PAIN 06/01/2017 GELLENDER DO, TAYO A Ot R16.0 HEPATOMEGALY, NOT ELSEWHERE CLASSIFIED 06/01/2017 GELLENDER DO, TAYO Jody Ot K82.8 OTHER SPECIFIED DISEASES OF GALLBLADDER 06/01/2017 GELLENDER DO, TAYO Vera Ot R10.11 RIGHT UPPER QUADRANT PAIN 06/05/2017 RAY PEACOCK MUD ENGINEER Ot E11.42 TYPE 2 DIABETES MELLITUS WITH DIABETIC P 06/05/2017 RAY PEACOCK MUD ENGINEER Ot E11.621 TYPE 2 DIABETES MELLITUS WITH FOOT ULCER 06/05/2017 RAY PEACOCK MUD ENGINEER Ot L97.512 NON-PRS CHRONIC ULCER OTH PRT RIGHT FOOT 06/05/2017 RAY PEACOCK MUD ENGINEER Ot E11.42 TYPE 2 DIABETES MELLITUS WITH DIABETIC P 06/05/2017 RAY PEACOCK MUD ENGINEER Ot E11.621 TYPE 2 DIABETES MELLITUS WITH FOOT ULCER 06/05/2017 RAY PEACOCK MUD ENGINEER Ot L97.512 NON-PRS CHRONIC ULCER OTH PRT RIGHT FOOT 06/09/2017 TAYO SUTTON DO Ot 825.25 FX METATARSAL-CLOSED 06/09/2017 TAYO SUTTON DO Ot E000.8 OTHER EXTERNAL CAUSE STATUS 06/09/2017 TAYO SUTTON DO Ot E849.0 ACCIDENT IN HOME 06/09/2017 TAYO SUTTON DO Ot E888.9 FALL NOS 06/09/2017 TAYO SUTTON DO Ot 571.8 CHRONIC LIVER DIS NEC 06/09/2017 TAYO SUTTON DO Ot 593.9 RENAL URETERAL DIS NOS 06/09/2017 TAYO SUTTON DO Ot V76.12 OTH SCREEN MAMMO-MALIGN NEOPLASM OF TERI 06/09/2017 TAYO SUTTON DO Ot Z12.31 ENCNTR SCREEN MAMMOGRAM FOR MALIGNANT NE 06/09/2017 RAY PEACOCK APRN Ot L97.513 NON-PRS CHRONIC ULCER OTH PRT RIGHT FOOT 06/09/2017 TAYO SUTTON DO Ot M54.2 CERVICALGIA 06/09/2017 RAY PEACOCK APRN Ot E11.42 TYPE 2 DIABETES MELLITUS WITH DIABETIC P 06/09/2017 RAY PEACOCK APRN Ot E11.621 TYPE 2 DIABETES MELLITUS WITH FOOT ULCER 06/09/2017 RAY PEACOCK APRN Ot L97.512 NON-PRS CHRONIC ULCER OTH PRT RIGHT FOOT 06/09/2017 RAY PEACOCK APRN Ot E11.42 TYPE 2 DIABETES MELLITUS WITH DIABETIC P 06/09/2017 RAY PEACOCK APRN Ot E11.621 TYPE 2 DIABETES MELLITUS WITH FOOT ULCER 06/09/2017 RAY PEACOCK MUD ENGINEER Ot L97.512 NON-PRS CHRONIC ULCER OTH PRT RIGHT FOOT 06/09/2017 RAY PEACOCK APRN Ot E11.42 TYPE 2 DIABETES MELLITUS WITH DIABETIC P 06/09/2017 RAY PEACOCK APRN Ot E11.621 TYPE 2 DIABETES MELLITUS WITH FOOT ULCER 06/09/2017 RAY PEACOCK APRN Ot L97.512 NON-PRS CHRONIC ULCER OTH PRT RIGHT FOOT 06/09/2017 RAY PEACOCK MUD ENGINEER Ot E11.42 TYPE 2 DIABETES MELLITUS WITH DIABETIC P 06/09/2017 RAY PEACOCK APRN Ot E11.621 TYPE 2 DIABETES MELLITUS WITH FOOT ULCER 06/09/2017 RAY PEACOCK APRN Ot L97.512 NON-PRS CHRONIC ULCER OTH PRT RIGHT FOOT 06/09/2017 LESLEY THOMPSON, TAYO Vera Ot R06.02 SHORTNESS OF BREATH 06/09/2017 GELLENDER DO, TAYO Vera Ot R53.1 WEAKNESS 06/09/2017 GELLENDER , TAYO Vera Ot R60.9 EDEMA, UNSPECIFIED 06/09/2017 GELLENDER , TAYO Vera Ot K76.0 FATTY (CHANGE OF) LIVER, NOT ELSEWHERE C 06/09/2017 GELLENDER DO, TAYO Vera Ot R10.11 RIGHT UPPER QUADRANT PAIN 06/09/2017 GELLENDER DO, TAYO Vera Ot R16.0 HEPATOMEGALY, NOT ELSEWHERE CLASSIFIED 06/09/2017 GELLENDER , TAYO Vera Ot K82.8 OTHER SPECIFIED DISEASES OF GALLBLADDER 06/09/2017 GELLENDER DO, TAYO Vera Ot R10.11 RIGHT UPPER QUADRANT PAIN 06/09/2017 RAY PEACOCK MUD ENGINEER Ot E11.42 TYPE 2 DIABETES MELLITUS WITH DIABETIC P 06/09/2017 RAY PEACOCK APRN Ot E11.621 TYPE 2 DIABETES MELLITUS WITH FOOT ULCER 06/09/2017 RAY PEACOCK APRN Ot L97.512 NON-PRS CHRONIC ULCER OTH PRT RIGHT FOOT 06/09/2017 RAY PEACOCK APRN Ot Z45.2 ENCOUNTER FOR ADJUSTMENT AND MANAGEMENT 06/09/2017 RAY PEACOCK APRN Ot E11.42 TYPE 2 DIABETES MELLITUS WITH DIABETIC P 06/09/2017 RAY PEACOCK APRN Ot E11.621 TYPE 2 DIABETES MELLITUS WITH FOOT ULCER 06/09/2017 RAY PEACOCK APRN Ot L97.512 NON-PRS CHRONIC ULCER OTH PRT RIGHT FOOT 06/09/2017 RAY PEACOCK APRN Ot E11.42 TYPE 2 DIABETES MELLITUS WITH DIABETIC P 06/09/2017 RAY PEACOCK APRN Ot E11.621 TYPE 2 DIABETES MELLITUS WITH FOOT ULCER 06/09/2017 RAY PEACOCK APRN Ot L97.512 NON-PRS CHRONIC ULCER OTH PRT RIGHT FOOT 06/09/2017 RAY PEACOCK APRN Ot E11.42 TYPE 2 DIABETES MELLITUS WITH DIABETIC P 06/09/2017 RAY PEACOCK APRN Ot E11.621 TYPE 2 DIABETES MELLITUS WITH FOOT ULCER 06/09/2017 AYUSH, RAY R MUD ENGINEER Ot L97.512 NON-PRS CHRONIC ULCER OTH PRT RIGHT FOOT 06/09/2017 RAY PEACOCK R MUD ENGINEER Ot E11.42 TYPE 2 DIABETES MELLITUS WITH DIABETIC P 06/09/2017 RAY PEACOCK R MUD ENGINEER Ot E11.621 TYPE 2 DIABETES MELLITUS WITH FOOT ULCER 06/09/2017 RAY PEACOCK R MUD ENGINEER Ot L97.512 NON-PRS CHRONIC ULCER OTH PRT RIGHT FOOT 06/09/2017 RAY PEACOCK R MUD ENGINEER Ot E11.42 TYPE 2 DIABETES MELLITUS WITH DIABETIC P 06/09/2017 RAY PEACOCK R MUD ENGINEER Ot E11.621 TYPE 2 DIABETES MELLITUS WITH FOOT ULCER 06/09/2017 RAY PEACOCK R MUD ENGINEER Ot L97.512 NON-PRS CHRONIC ULCER OTH PRT RIGHT FOOT 06/09/2017 TAYO SUTTON DO Ot Z12.31 ENCNTR SCREEN MAMMOGRAM FOR MALIGNANT NE 06/09/2017 RAY PEACOCK MUD ENGINEER Ot E11.42 TYPE 2 DIABETES MELLITUS WITH DIABETIC P 06/09/2017 RAY PEACOCK MUD ENGINEER Ot E11.621 TYPE 2 DIABETES MELLITUS WITH FOOT ULCER 06/09/2017 RAY PEACOCK MUD ENGINEER Ot L97.512 NON-PRS CHRONIC ULCER OTH PRT RIGHT FOOT 06/09/2017 RAY PEACOCK MUD ENGINEER Ot E11.42 TYPE 2 DIABETES MELLITUS WITH DIABETIC P 06/09/2017 RAY PEACOCK MUD ENGINEER Ot E11.621 TYPE 2 DIABETES MELLITUS WITH FOOT ULCER 06/09/2017 RAY PEACOCK MUD ENGINEER Ot L97.512 NON-PRS CHRONIC ULCER OTH PRT RIGHT FOOT 06/09/2017 RAY PEACOCK MUD ENGINEER Ot E11.42 TYPE 2 DIABETES MELLITUS WITH DIABETIC P 06/09/2017 RAY PEACOCK R MUD ENGINEER Ot E11.621 TYPE 2 DIABETES MELLITUS WITH FOOT ULCER 06/09/2017 RAY PEACOCK R MUD ENGINEER Ot L97.512 NON-PRS CHRONIC ULCER OTH PRT RIGHT FOOT 06/09/2017 RAY PEACOCK R MUD ENGINEER Ot E11.42 TYPE 2 DIABETES MELLITUS WITH DIABETIC P 06/09/2017 RAY PEACOCK R MUD ENGINEER Ot E11.621 TYPE 2 DIABETES MELLITUS WITH FOOT ULCER 06/09/2017 RAY PEACOCK MUD ENGINEER Ot L97.512 NON-PRS CHRONIC ULCER OTH PRT RIGHT FOOT 06/19/2017 RAY PEACOCK MUD ENGINEER Ot E11.42 TYPE 2 DIABETES MELLITUS WITH DIABETIC P 06/19/2017 RAY PEACOCK MUD ENGINEER Ot E11.621 TYPE 2 DIABETES MELLITUS WITH FOOT ULCER 06/19/2017 RAY PEACOCK MUD ENGINEER Ot L97.512 NON-PRS CHRONIC ULCER OTH PRT RIGHT FOOT 06/19/2017 RAY PEACOCK MUD ENGINEER Ot E11.42 TYPE 2 DIABETES MELLITUS WITH DIABETIC P 06/19/2017 RAY PEACOCK MUD ENGINEER Ot E11.621 TYPE 2 DIABETES MELLITUS WITH FOOT ULCER 06/19/2017 RAY PEACOCK MUD ENGINEER Ot L97.512 NON-PRS CHRONIC ULCER OTH PRT RIGHT FOOT 06/29/2017 RAY PEACOCK APRN Ot E11.42 TYPE 2 DIABETES MELLITUS WITH DIABETIC P 06/29/2017 RAY PEACOCK APRN Ot E11.621 TYPE 2 DIABETES MELLITUS WITH FOOT ULCER 06/29/2017 RAY PEACOCK APRN Ot L97.512 NON-PRS CHRONIC ULCER OTH PRT RIGHT FOOT 06/29/2017 JIMCNAIRTAYO Ot 825.25 FX METATARSAL-CLOSED 06/29/2017 LESLEY THOMPSONTAYO Ot E000.8 OTHER EXTERNAL CAUSE STATUS 06/29/2017 LESLEY THOMPSONTAYO Ot E849.0 ACCIDENT IN HOME 06/29/2017 JIMCNAIRTAYO Ot E888.9 FALL NOS 06/29/2017 LESLEY THOMPSONTAYO Ot 571.8 CHRONIC LIVER DIS NEC 06/29/2017 LESLEY THOMPSONTAYO Ot 593.9 RENAL URETERAL DIS NOS 06/29/2017 JIMCNAIRTAYO Ot V76.12 OTH SCREEN MAMMO-MALIGN NEOPLASM OF TERI 06/29/2017 JIMANUELITO TAYO THOMPSON Ot Z12.31 ENCNTR SCREEN MAMMOGRAM FOR MALIGNANT NE 06/29/2017 RAY PEACOCK APRN Ot L97.513 NON-PRS CHRONIC ULCER OTH PRT RIGHT FOOT 06/29/2017 TAYO SUTTON DO Ot M54.2 CERVICALGIA 06/29/2017 RAY PEACOCK MUD ENGINEER Ot E11.42 TYPE 2 DIABETES MELLITUS WITH DIABETIC P 06/29/2017 RAY PEACOCK APRN Ot E11.621 TYPE 2 DIABETES MELLITUS WITH FOOT ULCER 06/29/2017 AYUSH, RAY R MUD ENGINEER Ot L97.512 NON-PRS CHRONIC ULCER OTH PRT RIGHT FOOT 06/29/2017 RAY PEACOCK R MUD ENGINEER Ot E11.42 TYPE 2 DIABETES MELLITUS WITH DIABETIC P 06/29/2017 RAY PEACOCK R MUD ENGINEER Ot E11.621 TYPE 2 DIABETES MELLITUS WITH FOOT ULCER 06/29/2017 RAY PEACOCK R MUD ENGINEER Ot L97.512 NON-PRS CHRONIC ULCER OTH PRT RIGHT FOOT 06/29/2017 RAY PEACOCK R MUD ENGINEER Ot E11.42 TYPE 2 DIABETES MELLITUS WITH DIABETIC P 06/29/2017 AYUSH RAY R MUD ENGINEER Ot E11.621 TYPE 2 DIABETES MELLITUS WITH FOOT ULCER 06/29/2017 RAY PEACOCK R MUD ENGINEER Ot L97.512 NON-PRS CHRONIC ULCER OTH PRT RIGHT FOOT 06/29/2017 RAY PEACOCK R MUD ENGINEER Ot E11.42 TYPE 2 DIABETES MELLITUS WITH DIABETIC P 06/29/2017 RAY PEACOCK R MUD ENGINEER Ot E11.621 TYPE 2 DIABETES MELLITUS WITH FOOT ULCER 06/29/2017 RAY PEACOCK MUD ENGINEER Ot L97.512 NON-PRS CHRONIC ULCER OTH PRT RIGHT FOOT 06/29/2017 TAYO SUTTON DO Ot R06.02 SHORTNESS OF BREATH 06/29/2017 GELLENDER DOTAYO Ot R53.1 WEAKNESS 06/29/2017 GELLENDER TAYO THOMPSON Ot R60.9 EDEMA, UNSPECIFIED 06/29/2017 GELLENDER DOTAYO Ot K76.0 FATTY (CHANGE OF) LIVER, NOT ELSEWHERE C 06/29/2017 GELTAYO HUDSON DO Ot R10.11 RIGHT UPPER QUADRANT PAIN 06/29/2017 GELLENTAYO BILLINGS DO Ot R16.0 HEPATOMEGALY, NOT ELSEWHERE CLASSIFIED 06/29/2017 GELLENDER TAYO THOMPSON Ot K82.8 OTHER SPECIFIED DISEASES OF GALLBLADDER 06/29/2017 GELTAYO HUDSON DO Ot R10.11 RIGHT UPPER QUADRANT PAIN 06/29/2017 RAY PEACOCK R MUD ENGINEER Ot E11.42 TYPE 2 DIABETES MELLITUS WITH DIABETIC P 06/29/2017 RAY PEACOCK R MUD ENGINEER Ot E11.621 TYPE 2 DIABETES MELLITUS WITH FOOT ULCER 06/29/2017 RAY PEACOCK MUD ENGINEER Ot L97.512 NON-PRS CHRONIC ULCER OTH PRT RIGHT FOOT 06/29/2017 RAY PEACOCK MUD ENGINEER Ot Z45.2 ENCOUNTER FOR ADJUSTMENT AND MANAGEMENT 06/29/2017 RAY PEACOCK R MUD ENGINEER Ot E11.42 TYPE 2 DIABETES MELLITUS WITH DIABETIC P 06/29/2017 RAY PEACOCK R MUD ENGINEER Ot E11.621 TYPE 2 DIABETES MELLITUS WITH FOOT ULCER 06/29/2017 RAY PEACOCK R MUD ENGINEER Ot L97.512 NON-PRS CHRONIC ULCER OTH PRT RIGHT FOOT 06/29/2017 RAY PEACOCK R MUD ENGINEER Ot E11.42 TYPE 2 DIABETES MELLITUS WITH DIABETIC P 06/29/2017 RAY PEACOCK R MUD ENGINEER Ot E11.621 TYPE 2 DIABETES MELLITUS WITH FOOT ULCER 06/29/2017 RYA PEACOCK R MUD ENGINEER Ot L97.512 NON-PRS CHRONIC ULCER OTH PRT RIGHT FOOT 06/29/2017 RAY PEACOCK R MUD ENGINEER Ot E11.42 TYPE 2 DIABETES MELLITUS WITH DIABETIC P 06/29/2017 RAY PEACOCK R MUD ENGINEER Ot E11.621 TYPE 2 DIABETES MELLITUS WITH FOOT ULCER 06/29/2017 RAY PEACOCK R MUD ENGINEER Ot L97.512 NON-PRS CHRONIC ULCER OTH PRT RIGHT FOOT 06/29/2017 RAY PEACOCK R MUD ENGINEER Ot E11.42 TYPE 2 DIABETES MELLITUS WITH DIABETIC P 06/29/2017 RAY PEACOCK R MUD ENGINEER Ot E11.621 TYPE 2 DIABETES MELLITUS WITH FOOT ULCER 06/29/2017 RAY PEACOCK R MUD ENGINEER Ot L97.512 NON-PRS CHRONIC ULCER OTH PRT RIGHT FOOT 06/29/2017 RAY PEACOCK MUD ENGINEER Ot E11.42 TYPE 2 DIABETES MELLITUS WITH DIABETIC P 06/29/2017 RAY PEACOCK R MUD ENGINEER Ot E11.621 TYPE 2 DIABETES MELLITUS WITH FOOT ULCER 06/29/2017 RAY PEACOCK R MUD ENGINEER Ot L97.512 NON-PRS CHRONIC ULCER OTH PRT RIGHT FOOT 06/29/2017 TAYO SUTTON DO Ot Z12.31 ENCNTR SCREEN MAMMOGRAM FOR MALIGNANT NE 06/29/2017 RAY PEACOCK R MUD ENGINEER Ot E11.42 TYPE 2 DIABETES MELLITUS WITH DIABETIC P 06/29/2017 RAY PEACOCK R MUD ENGINEER Ot E11.621 TYPE 2 DIABETES MELLITUS WITH FOOT ULCER 06/29/2017 RAY PEACOCK R MUD ENGINEER Ot L97.512 NON-PRS CHRONIC ULCER OTH PRT RIGHT FOOT 06/29/2017 AYUSH, RAY R MUD ENGINEER Ot E11.42 TYPE 2 DIABETES MELLITUS WITH DIABETIC P 06/29/2017 AYUSH RAY R MUD ENGINEER Ot E11.621 TYPE 2 DIABETES MELLITUS WITH FOOT ULCER 06/29/2017 AYUSH RAY R MUD ENGINEER Ot L97.512 NON-PRS CHRONIC ULCER OTH PRT RIGHT FOOT 07/07/2017 MAURICE PEACOCKN R MUD ENGINEER Ot E11.42 TYPE 2 DIABETES MELLITUS WITH DIABETIC P 07/07/2017 MAURICE PEACOCKN R MUD ENGINEER Ot E11.621 TYPE 2 DIABETES MELLITUS WITH FOOT ULCER 07/07/2017 AYUSH RAY R MUD ENGINEER Ot L97.512 NON-PRS CHRONIC ULCER OTH PRT RIGHT FOOT 07/07/2017 AYUSH RAY R MUD ENGINEER Ot E11.42 TYPE 2 DIABETES MELLITUS WITH DIABETIC P 07/07/2017 MAURICE PEACOCKN R MUD ENGINEER Ot E11.621 TYPE 2 DIABETES MELLITUS WITH FOOT ULCER 07/07/2017 AYUSH RAY R MUD ENGINEER Ot L97.512 NON-PRS CHRONIC ULCER OTH PRT RIGHT FOOT 07/07/2017 RAY PEACOCK R MUD ENGINEER Ot E11.42 TYPE 2 DIABETES MELLITUS WITH DIABETIC P 07/07/2017 AYUSH RAY R MUD ENGINEER Ot E11.621 TYPE 2 DIABETES MELLITUS WITH FOOT ULCER 07/07/2017 AYUSH RAY R MUD ENGINEER Ot L97.512 NON-PRS CHRONIC ULCER OTH PRT RIGHT FOOT 07/10/2017 RAY PEACOCK R MUD ENGINEER Ot E11.42 TYPE 2 DIABETES MELLITUS WITH DIABETIC P 07/10/2017 MAURICE PEACOCKN R MUD ENGINEER Ot E11.621 TYPE 2 DIABETES MELLITUS WITH FOOT ULCER 07/10/2017 AYUSH RAY R MUD ENGINEER Ot L97.512 NON-PRS CHRONIC ULCER OTH PRT RIGHT FOOT 07/13/2017 AYUSH RAY R MUD ENGINEER Ot E11.42 TYPE 2 DIABETES MELLITUS WITH DIABETIC P 07/13/2017 AYUSH RAY R MUD ENGINEER Ot E11.621 TYPE 2 DIABETES MELLITUS WITH FOOT ULCER 07/13/2017 AYUSH RAY R MUD ENGINEER Ot L97.512 NON-PRS CHRONIC ULCER OTH PRT RIGHT FOOT 07/13/2017 AYUSH RAY R MUD ENGINEER Ot E11.42 TYPE 2 DIABETES MELLITUS WITH DIABETIC P 07/13/2017 MAURICE PEACOCKN R MUD ENGINEER Ot E11.621 TYPE 2 DIABETES MELLITUS WITH FOOT ULCER 07/13/2017 MAURICE PEACOCKN R MUD ENGINEER Ot L97.512 NON-PRS CHRONIC ULCER OTH PRT RIGHT FOOT 07/13/2017 RAY PEACOCK R MUD ENGINEER Ot E11.42 TYPE 2 DIABETES MELLITUS WITH DIABETIC P 07/13/2017 RAY PEACOCK R MUD ENGINEER Ot E11.621 TYPE 2 DIABETES MELLITUS WITH FOOT ULCER 07/13/2017 RAY PEACOCK R MUD ENGINEER Ot L97.512 NON-PRS CHRONIC ULCER OTH PRT RIGHT FOOT 07/13/2017 RAY PEACOCK R MUD ENGINEER Ot E11.42 TYPE 2 DIABETES MELLITUS WITH DIABETIC P 07/13/2017 RAY PEACOCK R MUD ENGINEER Ot E11.621 TYPE 2 DIABETES MELLITUS WITH FOOT ULCER 07/13/2017 RAY PEACOCK R MUD ENGINEER Ot L97.512 NON-PRS CHRONIC ULCER OTH PRT RIGHT FOOT 07/21/2017 RAY PEACOCK R MUD ENGINEER Ot E11.42 TYPE 2 DIABETES MELLITUS WITH DIABETIC P 07/21/2017 RAY PEACOCK R MUD ENGINEER Ot E11.621 TYPE 2 DIABETES MELLITUS WITH FOOT ULCER 07/21/2017 RAY PEACOCK MUD ENGINEER Ot L97.512 NON-PRS CHRONIC ULCER OTH PRT RIGHT FOOT 07/21/2017 RAY PEACOCK R MUD ENGINEER Ot E11.42 TYPE 2 DIABETES MELLITUS WITH DIABETIC P 07/21/2017 RAY PEACOCK R MUD ENGINEER Ot E11.621 TYPE 2 DIABETES MELLITUS WITH FOOT ULCER 07/21/2017 RAY PEACOCK MUD ENGINEER Ot L97.512 NON-PRS CHRONIC ULCER OTH PRT RIGHT FOOT 08/08/2017 LESLEY THOMPSONTAYO Ot 825.25 FX METATARSAL-CLOSED 08/08/2017 LESLEY THOMPSONTAYO Ot E000.8 OTHER EXTERNAL CAUSE STATUS 08/08/2017 LESLEY THOMPSONTAYO Ot E849.0 ACCIDENT IN HOME 08/08/2017 LESLEY THOMPSONTAYO Ot E888.9 FALL NOS 08/08/2017 LESLEY THOMPSONTAYO Ot 571.8 CHRONIC LIVER DIS NEC 08/08/2017 LESLEY THOMPSONTAYO Ot 593.9 RENAL URETERAL DIS NOS 08/08/2017 LESLEY THOMPSONTAYO Ot V76.12 OTH SCREEN MAMMO-MALIGN NEOPLASM OF TERI 08/08/2017 LESLEY TAYO THOMPSON Ot Z12.31 ENCNTR SCREEN MAMMOGRAM FOR MALIGNANT NE 08/08/2017 RAY PEACOCK MUD ENGINEER Ot L97.513 NON-PRS CHRONIC ULCER OTH PRT RIGHT FOOT 08/08/2017 LESLEY TAYO THOMPSON Ot M54.2 CERVICALGIA 08/08/2017 RAY PEACOCK MUD ENGINEER Ot E11.42 TYPE 2 DIABETES MELLITUS WITH DIABETIC P 08/08/2017 RAY PEACOCK MUD ENGINEER Ot E11.621 TYPE 2 DIABETES MELLITUS WITH FOOT ULCER 08/08/2017 RAY PEACOCK R MUD ENGINEER Ot L97.512 NON-PRS CHRONIC ULCER OTH PRT RIGHT FOOT 08/08/2017 RAY PEACOCK R MUD ENGINEER Ot E11.42 TYPE 2 DIABETES MELLITUS WITH DIABETIC P 08/08/2017 AYUSHRAY R MUD ENGINEER Ot E11.621 TYPE 2 DIABETES MELLITUS WITH FOOT ULCER 08/08/2017 RAY PEACOCK R MUD ENGINEER Ot L97.512 NON-PRS CHRONIC ULCER OTH PRT RIGHT FOOT 08/08/2017 RAY PEACOCK R MUD ENGINEER Ot E11.42 TYPE 2 DIABETES MELLITUS WITH DIABETIC P 08/08/2017 RAY PEACOCK R MUD ENGINEER Ot E11.621 TYPE 2 DIABETES MELLITUS WITH FOOT ULCER 08/08/2017 RAY PEACOCK R MUD ENGINEER Ot L97.512 NON-PRS CHRONIC ULCER OTH PRT RIGHT FOOT 08/08/2017 RAY PEACOCK R MUD ENGINEER Ot E11.42 TYPE 2 DIABETES MELLITUS WITH DIABETIC P 08/08/2017 RAY PEACOCK R MUD ENGINEER Ot E11.621 TYPE 2 DIABETES MELLITUS WITH FOOT ULCER 08/08/2017 RAY PEACOCK MUD ENGINEER Ot L97.512 NON-PRS CHRONIC ULCER OTH PRT RIGHT FOOT 08/08/2017 TAYO SUTTON DO Ot R06.02 SHORTNESS OF BREATH 08/08/2017 LESLEY TAYO THOMPSON Ot R53.1 WEAKNESS 08/08/2017 LESLEY THOMPSONTAYO Ot R60.9 EDEMA, UNSPECIFIED 08/08/2017 LESLEY TAYO THOMPSON Ot K76.0 FATTY (CHANGE OF) LIVER, NOT ELSEWHERE C 08/08/2017 LESLEY TAYO THOMPSON Ot R10.11 RIGHT UPPER QUADRANT PAIN 08/08/2017 LESLEY TAYO THOMPSON Ot R16.0 HEPATOMEGALY, NOT ELSEWHERE CLASSIFIED 08/08/2017 TAYO SUTTON DO Ot K82.8 OTHER SPECIFIED DISEASES OF GALLBLADDER 08/08/2017 TAYO SUTTON DO Ot R10.11 RIGHT UPPER QUADRANT PAIN 08/08/2017 RAY PEACOCK MUD ENGINEER Ot E11.42 TYPE 2 DIABETES MELLITUS WITH DIABETIC P 08/08/2017 RAY PEACOCK R MUD ENGINEER Ot E11.621 TYPE 2 DIABETES MELLITUS WITH FOOT ULCER 08/08/2017 RAY PEACOCK R MUD ENGINEER Ot L97.512 NON-PRS CHRONIC ULCER OTH PRT RIGHT FOOT 08/08/2017 RAY PEACOCK MUD ENGINEER Ot Z45.2 ENCOUNTER FOR ADJUSTMENT AND MANAGEMENT 08/08/2017 RAY PEACOCK MUD ENGINEER Ot E11.42 TYPE 2 DIABETES MELLITUS WITH DIABETIC P 08/08/2017 RAY PEACOCK R MUD ENGINEER Ot E11.621 TYPE 2 DIABETES MELLITUS WITH FOOT ULCER 08/08/2017 RAY PEACOCK R MUD ENGINEER Ot L97.512 NON-PRS CHRONIC ULCER OTH PRT RIGHT FOOT 08/08/2017 RAY PEACOCK MUD ENGINEER Ot E11.42 TYPE 2 DIABETES MELLITUS WITH DIABETIC P 08/08/2017 RAY PEACOCK MUD ENGINEER Ot E11.621 TYPE 2 DIABETES MELLITUS WITH FOOT ULCER 08/08/2017 RAY PEACOCK R MUD ENGINEER Ot L97.512 NON-PRS CHRONIC ULCER OTH PRT RIGHT FOOT 08/08/2017 RAY PEACOCK MUD ENGINEER Ot E11.42 TYPE 2 DIABETES MELLITUS WITH DIABETIC P 08/08/2017 RAY PEACOCK R MUD ENGINEER Ot E11.621 TYPE 2 DIABETES MELLITUS WITH FOOT ULCER 08/08/2017 RAY PEACOCK R MUD ENGINEER Ot L97.512 NON-PRS CHRONIC ULCER OTH PRT RIGHT FOOT 08/08/2017 RAY PEACOCK MUD ENGINEER Ot E11.42 TYPE 2 DIABETES MELLITUS WITH DIABETIC P 08/08/2017 RAY PEACOCK R MUD ENGINEER Ot E11.621 TYPE 2 DIABETES MELLITUS WITH FOOT ULCER 08/08/2017 RAY PEACOCK R MUD ENGINEER Ot L97.512 NON-PRS CHRONIC ULCER OTH PRT RIGHT FOOT 08/08/2017 RAY PEACOCK R MUD ENGINEER Ot E11.42 TYPE 2 DIABETES MELLITUS WITH DIABETIC P 08/08/2017 RAY PEACOCK R MUD ENGINEER Ot E11.621 TYPE 2 DIABETES MELLITUS WITH FOOT ULCER 08/08/2017 RAY PEACOCK R MUD ENGINEER Ot L97.512 NON-PRS CHRONIC ULCER OTH PRT RIGHT FOOT 08/08/2017 GELLENDER DO, TAYO A Ot Z12.31 ENCNTR SCREEN MAMMOGRAM FOR MALIGNANT NE 08/08/2017 RAY PEACOCK MUD ENGINEER Ot E11.42 TYPE 2 DIABETES MELLITUS WITH DIABETIC P 08/08/2017 RAY PEACOCK MUD ENGINEER Ot E11.621 TYPE 2 DIABETES MELLITUS WITH FOOT ULCER 08/08/2017 RAY PEACOCK MUD ENGINEER Ot L97.512 NON-PRS CHRONIC ULCER OTH PRT RIGHT FOOT 08/08/2017 RAY PEACOCK MUD ENGINEER Ot E11.42 TYPE 2 DIABETES MELLITUS WITH DIABETIC P 08/08/2017 AYUSHRAY MUD ENGINEER Ot E11.621 TYPE 2 DIABETES MELLITUS WITH FOOT ULCER 08/08/2017 AYUSHRAY MUD ENGINEER Ot L97.512 NON-PRS CHRONIC ULCER OTH PRT RIGHT FOOT 08/08/2017 HIRAM COELHO MD Ot E11. 40 TYPE 2 DIABETES MELLITUS WITH DIABETIC N 08/08/2017 HIRAM COELHO MD Ot E11. 59 TYPE 2 DIABETES MELLITUS WITH OTH CIRCUL 08/08/2017 HIRAM COELHO MD Ot E11.621 TYPE 2 DIABETES MELLITUS WITH FOOT ULCER 08/08/2017 HIRAM COELHO MD Ot I10 ESSENTIAL (PRIMARY) HYPERTENSION 08/08/2017 HIRAM COELHO MD Ot I73. 9 PERIPHERAL VASCULAR DISEASE, UNSPECIFIED 08/08/2017 HIRAM COELHO MD Ot L97.519 NON-PRS CHRONIC ULCER OTH PRT RIGHT FOOT 08/08/2017 HIRAM COELHO MD Ot Z79. 82 INTERNET MARKETING EXECUTIVE (CURRENT) USE OF ASPIRIN 08/08/2017 HIRAM COELHO MD Ot Z79. 84 INTERNET MARKETING EXECUTIVE (CURRENT) USE OF ORAL HYPOGLYC 08/08/2017 HIRAM COELHO MD Ot Z80. 1 FAMILY HISTORY OF MALIG NEOPLASM OF TRAC 08/08/2017 HIRAM COELHO MD Ot Z82. 49 FAMILY HX OF ISCHEM HEART DIS AND OTH DI 08/08/2017 HIRAM COELHO MD Ot Z87.891 PERSONAL HISTORY OF NICOTINE DEPENDENCE 08/08/2017 HIRAM COELHO MD Ot Z98. 51 TUBAL LIGATION STATUS 08/11/2017 HIRAM COELHO MD Ot E11. 40 TYPE 2 DIABETES MELLITUS WITH DIABETIC N 08/11/2017 HIRAM COELHO MD Ot E11. 59 TYPE 2 DIABETES MELLITUS WITH OTH CIRCUL 08/11/2017 HIRAM COELHO MD Ot E11.621 TYPE 2 DIABETES MELLITUS WITH FOOT ULCER 08/11/2017 HIRAM COELHO MD Ot I10 ESSENTIAL (PRIMARY) HYPERTENSION 08/11/2017 HIRAM COELHO MD Ot I73. 9 PERIPHERAL VASCULAR DISEASE, UNSPECIFIED 08/11/2017 HIRAM COELHO MD Ot L97.519 NON-PRS CHRONIC ULCER OTH PRT RIGHT FOOT 08/11/2017 HIRAM COELHO MD Ot Z79. 82 INTERNET MARKETING EXECUTIVE (CURRENT) USE OF ASPIRIN 08/11/2017 HIRAM COELHO MD Ot Z79. 84 INTERNET MARKETING EXECUTIVE (CURRENT) USE OF ORAL HYPOGLYC 08/11/2017 HIRAM COELHO MD Ot Z80. 1 FAMILY HISTORY OF MALIG NEOPLASM OF TRAC 08/11/2017 HIRAM COELHO MD Ot Z82. 49 FAMILY HX OF ISCHEM HEART DIS AND OTH DI 08/11/2017 HIRAM COELHO MD Ot Z87.891 PERSONAL HISTORY OF NICOTINE DEPENDENCE 08/11/2017 HIRAM COELHO MD Ot Z98. 51 TUBAL LIGATION STATUS 08/17/2017 MARÍA ELENA HYMAN MD, Ot E11.621 TYPE 2 DIABETES MELLITUS WITH FOOT ULCER 08/17/2017 MARÍA ELENA HYMAN MD Ot I70.235 ATHSCL [place] ARTERIES OF RIGHT LEG W UL 08/17/2017 MARÍA ELENA HYMAN MD, Ot L97.512 NON-PRS CHRONIC ULCER OTH PRT RIGHT FOOT 08/19/2017 RAY PEACOCK APRN Ot E11.42 TYPE 2 DIABETES MELLITUS WITH DIABETIC P 08/19/2017 RAY PEACOCK APRN Ot E11.621 TYPE 2 DIABETES MELLITUS WITH FOOT ULCER 08/19/2017 RAY PEACOCK APRN Ot L97.512 NON-PRS CHRONIC ULCER OTH PRT RIGHT FOOT 08/19/2017 RAY PEACOCK APRN Ot E11.42 TYPE 2 DIABETES MELLITUS WITH DIABETIC P 08/19/2017 RAY PEACOCK APRN Ot E11.621 TYPE 2 DIABETES MELLITUS WITH FOOT ULCER 08/19/2017 RAY PEACOCK APRN Ot L97.512 NON-PRS CHRONIC ULCER OTH PRT RIGHT FOOT 09/11/2017 MARÍA ELENA HYMAN MD Ot E11.621 TYPE 2 DIABETES MELLITUS WITH FOOT ULCER 09/11/2017 MARÍA ELENA HYMAN MD Ot I70.235 ATHSCL [place] ARTERIES OF RIGHT LEG W UL 09/11/2017 MARÍA ELENA HYMAN MD Ot L97.512 NON-PRS CHRONIC ULCER OTH PRT RIGHT FOOT 09/16/2017 RAY PEACOCK MUD ENGINEER Ot E11.42 TYPE 2 DIABETES MELLITUS WITH DIABETIC P 09/16/2017 RAY PEACOCK MUD ENGINEER Ot E11.621 TYPE 2 DIABETES MELLITUS WITH FOOT ULCER 09/16/2017 RAY PEACOCK MUD ENGINEER Ot L97.512 NON-PRS CHRONIC ULCER OTH PRT RIGHT FOOT 09/16/2017 RAY PEACOCK APRN Ot E11.42 TYPE 2 DIABETES MELLITUS WITH DIABETIC P 09/16/2017 RAY PEACOCK APRN Ot E11.621 TYPE 2 DIABETES MELLITUS WITH FOOT ULCER 09/16/2017 RAY PEACOCK APRN Ot L97.512 NON-PRS CHRONIC ULCER OTH PRT RIGHT FOOT 12/08/2017 DINORA THOMPSON CARMEN Ot E11.40 TYPE 2 DIABETES MELLITUS WITH DIABETIC N 12/08/2017 GIOVANI FARIAS DOI Ot E11.62 1 TYPE 2 DIABETES MELLITUS WITH FOOT ULCER 12/08/2017 DINORA THOMPSON CARMEN Ot I34.0 NONRHEUMATIC MITRAL (VALVE) INSUFFICIENC 12/08/2017 DINORA THOMPSON CARMEN Ot I67.4 HYPERTENSIVE ENCEPHALOPATHY 12/08/2017 DINORA THOMPSON CARMEN Ot I73.9 PERIPHERAL VASCULAR DISEASE, UNSPECIFIED 12/08/2017 DINORA THOMPSON CARMEN Ot L97.51 9 NON-PRS CHRONIC ULCER OTH PRT RIGHT FOOT 12/08/2017 DINORA THOMPSON CARMEN Ot M79.7 FIBROMYALGIA 12/08/2017 DINORA THOMPSON CARMEN Ot N39.0 URINARY TRACT INFECTION, SITE NOT SPECIF 12/08/2017 DINORA THOMPSON CARMEN Ot Z79.84 CARE HOME (CURRENT) USE OF ORAL HYPOGLYC 12/08/2017 GIOVANI FARIAS DOI Ot Z87.89 1 PERSONAL HISTORY OF NICOTINE DEPENDENCE 01/15/2018 RAY PEACOCK MUD ENGINEER Ot E11.42 TYPE 2 DIABETES MELLITUS WITH DIABETIC P 01/15/2018 RAY PEACOCK MUD ENGINEER Ot E11.621 TYPE 2 DIABETES MELLITUS WITH FOOT ULCER 01/15/2018 RAY PEACOCK MUD ENGINEER Ot L97.512 NON-PRS CHRONIC ULCER OTH PRT RIGHT FOOT 02/04/2018 REAGAN DPM, MARIBEL Q Ot L97.519 NON-PRS CHRONIC ULCER OTH PRT RIGHT FOOT 02/04/2018 REAGAN DPM, MARIBEL Q Ot Z01.818 ENCOUNTER FOR OTHER PREPROCEDURAL EXAMIN 02/05/2018 REAGAN DPM, MARIBEL Q Ot L97.519 NON-PRS CHRONIC ULCER OTH PRT RIGHT FOOT 02/05/2018 REAGAN DPM, MARIBEL Q Ot Z01.818 ENCOUNTER FOR OTHER PREPROCEDURAL EXAMIN 02/12/2018 REAGAN DPM, MARIBEL Q Ot E11. 40 TYPE 2 DIABETES MELLITUS WITH DIABETIC N 02/12/2018 REAGAN DPM, MARIBEL Q Ot E66. 9 OBESITY, UNSPECIFIED 02/12/2018 REAGAN DPM, MARIBEL Q Ot I10 ESSENTIAL (PRIMARY) HYPERTENSION 02/12/2018 REAGAN DPM, MARIBEL Q Ot I73. 9 PERIPHERAL VASCULAR DISEASE, UNSPECIFIED 02/12/2018 REAGAN DPM, MARIBEL Q Ot K21. 9 GASTRO-ESOPHAGEAL REFLUX DISEASE WITHOUT 02/12/2018 REAGAN DPM, MARIBEL Q Ot L97.519 NON-PRS CHRONIC ULCER OTH PRT RIGHT FOOT 02/12/2018 REAGAN DPM, MARIBEL Q Ot M79. 7 FIBROMYALGIA 02/12/2018 REAGAN DPM, MARIBEL Q Ot M89.371 HYPERTROPHY OF BONE, RIGHT ANKLE AND BRADLEY 02/12/2018 REAGAN DPM, MARIBEL Q Ot Z68. 32 BODY MASS INDEX (BMI) 32.0-32.9, ADULT 02/12/2018 REAGAN DPM, MARIBEL Q Ot Z79. 84 INTERNET MARKETING EXECUTIVE (CURRENT) USE OF ORAL HYPOGLYC 02/12/2018 REAGAN DPM, MARIBEL Q Ot Z79.899 OTHER INTERNET MARKETING EXECUTIVE (CURRENT) DRUG THERAPY 02/12/2018 REAGAN DPM, MARIBEL Q Ot Z87.891 PERSONAL HISTORY OF NICOTINE DEPENDENCE 02/15/2018 REAGAN DPM, MARIBEL Q Ot E11. 40 TYPE 2 DIABETES MELLITUS WITH DIABETIC N 02/15/2018 REAGAN DPM, MARIBEL Q Ot E66. 9 OBESITY, UNSPECIFIED 02/15/2018 REAGAN DPM, MARIBEL Q Ot I10 ESSENTIAL (PRIMARY) HYPERTENSION 02/15/2018 REAGAN DPM, MARIBEL Q Ot I73. 9 PERIPHERAL VASCULAR DISEASE, UNSPECIFIED 02/15/2018 REAGAN DPM, MARIBEL Q Ot K21. 9 GASTRO-ESOPHAGEAL REFLUX DISEASE WITHOUT 02/15/2018 REAGAN DPM, MARIBEL Q Ot L97.519 NON-PRS CHRONIC ULCER OTH PRT RIGHT FOOT 02/15/2018 REAGAN DPM, MARIBEL Q Ot M79. 7 FIBROMYALGIA 02/15/2018 REAGAN DPM, MARIBEL Q Ot M89.371 HYPERTROPHY OF BONE, RIGHT ANKLE AND BRADLEY 02/15/2018 REAGAN DPM, MARIBEL Q Ot Z68. 32 BODY MASS INDEX (BMI) 32.0-32.9, ADULT 02/15/2018 REAGAN DPM, MARIBEL Q Ot Z79. 84 INTERNET MARKETING EXECUTIVE (CURRENT) USE OF ORAL HYPOGLYC 02/15/2018 REAGAN DPM, MARIBEL Q Ot Z79.899 OTHER INTERNET MARKETING EXECUTIVE (CURRENT) DRUG THERAPY 02/15/2018 REAGAN DPM, MARIBEL Q Ot Z87.891 PERSONAL HISTORY OF NICOTINE DEPENDENCE 03/24/2018 GORDO EASTMAN FACC, DEBORA FACP CCDS Ot D64.9 ANEMIA, UNSPECIFIED 03/24/2018 GORDO EASTMAN FACC, DEBORA FACP CCDS Ot E11.43 TYPE 2 DIABETES W DIABETIC AUTONOMIC (PO 03/24/2018 GORDO EASTMAN FACC, DEBORA FACP CCDS Ot E66.9 OBESITY, UNSPECIFIED 03/24/2018 GORDO EASTMAN FACC, DEBORA FACP CCDS Ot E78.5 HYPERLIPIDEMIA, UNSPECIFIED 03/24/2018 GORDO EASTMAN FACC, DEBORA FACP CCDS Ot I10 ESSENTIAL (PRIMARY) HYPERTENSION 03/24/2018 GORDO EASTMAN FACC, DEBORA FACP CCDS Ot I25.10 ATHSCL HEART DISEASE OF [place] CORONARY 03/24/2018 GORDO EASTMAN FACC, DEBORA FACP CCDS Ot Z68.33 BODY MASS INDEX (BMI) 33.0-33.9, ADULT 03/24/2018 GORDO EASTMAN FACC, DEBORA FACP CCDS Ot Z79.4 INTERNET MARKETING EXECUTIVE (CURRENT) USE OF INSULIN 03/24/2018 DEBORA CARO MD, FACC FACP CCDS Ot Z79.82 CARE HOME (CURRENT) USE OF ASPIRIN 03/24/2018 GORDO EASTMAN FACC, DEBORA FACP CCDS Ot Z79.899 OTHER CARE HOME (CURRENT) DRUG THERAPY 03/24/2018 GORDO EASTMAN FACC, ALI FACP CCDS Ot Z87.891 PERSONAL HISTORY OF NICOTINE DEPENDENCE 03/24/2018 GORDO EASTMAN FACC, ALI FACP CCDS Ot Z95.820 PERIPHERAL VASCULAR ANGIOPLASTY STATUS W 03/26/2018 GORDO EASTMAN FACC, ALI FACP CCDS Ot D64.9 ANEMIA, UNSPECIFIED 03/26/2018 GORDO MILLERC, ALI FACP CCDS Ot E11.43 TYPE 2 DIABETES W DIABETIC AUTONOMIC (PO 03/26/2018 GORDO EASTMAN FACC, ALI FACP CCDS Ot E66.9 OBESITY, UNSPECIFIED 03/26/2018 GORDO MILLERC, ALI FACP CCDS Ot E78.5 HYPERLIPIDEMIA, UNSPECIFIED 03/26/2018 GORDO EASTMAN FACC, ALI FACP CCDS Ot I10 ESSENTIAL (PRIMARY) HYPERTENSION 03/26/2018 GORDO EASTMAN FACC, ALI FACP CCDS Ot I25.10 ATHSCL HEART DISEASE OF [place] CORONARY 03/26/2018 GORDO EASTMAN FACC, ALI FACP CCDS Ot Z68.33 BODY MASS INDEX (BMI) 33.0-33.9, ADULT 03/26/2018 GORDO EASTMAN FACC, ALI FACP CCDS Ot Z79.4 INTERNET MARKETING EXECUTIVE (CURRENT) USE OF INSULIN 03/26/2018 GORDO EASTMAN FACC, ALI FACP CCDS Ot Z79.82 INTERNET MARKETING EXECUTIVE (CURRENT) USE OF ASPIRIN 03/26/2018 GORDO EASTMAN FACC, ALI FACP CCDS Ot Z79.899 OTHER CARE HOME (CURRENT) DRUG THERAPY 03/26/2018 GOROD EASTMAN FACC, ALI FACP CCDS Ot Z87.891 PERSONAL HISTORY OF NICOTINE DEPENDENCE 03/26/2018 GORDO EASTMAN FACC, ALI FACP CCDS Ot Z95.820 PERIPHERAL VASCULAR ANGIOPLASTY STATUS W 03/29/2018 GORDO EASTMAN FACC, ALI FACP CCDS Ot D64.9 ANEMIA, UNSPECIFIED 03/29/2018 GORDO EASTMAN FACC, ALI FACP CCDS Ot E11.43 TYPE 2 DIABETES W DIABETIC AUTONOMIC (PO 03/29/2018 GORDO EASTMAN FACC, ALI FACP CCDS Ot E66.9 OBESITY, UNSPECIFIED 03/29/2018 GORDO EASTMAN FACC, ALI FACP CCDS Ot E78.5 HYPERLIPIDEMIA, UNSPECIFIED 03/29/2018 GORDO EASTMAN FACC, ALI FACP CCDS Ot I10 ESSENTIAL (PRIMARY) HYPERTENSION 03/29/2018 GORDO EASTMAN FACC, ALI FACP CCDS Ot I25.10 ATHSCL HEART DISEASE OF [place] CORONARY 03/29/2018 GORDO EASTMAN FACC, ALI FACP CCDS Ot Z68.33 BODY MASS INDEX (BMI) 33.0-33.9, ADULT 03/29/2018 GORDO EASTMAN FACC, ALI FACP CCDS Ot Z79.4 CARE HOME (CURRENT) USE OF INSULIN 03/29/2018 GORDO EASTMAN FACC, ALI FACP CCDS Ot Z79.82 CARE HOME (CURRENT) USE OF ASPIRIN 03/29/2018 GORDO EASTMAN FACC, ALI FACP CCDS Ot Z79.899 OTHER INTERNET MARKETING EXECUTIVE (CURRENT) DRUG THERAPY 03/29/2018 GORDO EASTMAN FACC, ALI FACP CCDS Ot Z87.891 PERSONAL HISTORY OF NICOTINE DEPENDENCE 03/29/2018 GORDO EASTMAN FACC, ALI FACP CCDS Ot Z95.820 PERIPHERAL VASCULAR ANGIOPLASTY STATUS W 04/01/2018 GORDO EASTMAN FACC, DEBORA FACP CCDS Ot D64.9 ANEMIA, UNSPECIFIED 04/01/2018 GORDO EASTMAN FACC, ALI FACP CCDS Ot E11.43 TYPE 2 DIABETES W DIABETIC AUTONOMIC (PO 04/01/2018 GORDO EASTMAN FACC, ALI FACP CCDS Ot E66.9 OBESITY, UNSPECIFIED 04/01/2018 GORDO EASTMAN FACC, ALI FACP CCDS Ot E78.5 HYPERLIPIDEMIA, UNSPECIFIED 04/01/2018 GORDO EASTMAN FACC, ALI FACP CCDS Ot I10 ESSENTIAL (PRIMARY) HYPERTENSION 04/01/2018 GORDO EASTMAN FACC, ALI FACP CCDS Ot I25.10 ATHSCL HEART DISEASE OF [place] CORONARY 04/01/2018 GORDO EASTMAN FACC, ALI FACP CCDS Ot Z68.33 BODY MASS INDEX (BMI) 33.0-33.9, ADULT 04/01/2018 GORDO EASTMAN FACC, ALI FACP CCDS Ot Z79.4 CARE HOME (CURRENT) USE OF INSULIN 04/01/2018 GORDO EASTMAN FACC, ALI FACP CCDS Ot Z79.82 INTERNET MARKETING EXECUTIVE (CURRENT) USE OF ASPIRIN 04/01/2018 GORDO EASTMAN FACC, ALI FACP CCDS Ot Z79.899 OTHER CARE HOME (CURRENT) DRUG THERAPY 04/01/2018 GORDO EASTMAN FACC, ALI FACP CCDS Ot Z87.891 PERSONAL HISTORY OF NICOTINE DEPENDENCE 04/01/2018 GORDO EASTMAN FACC, ALI FACP CCDS Ot Z95.820 PERIPHERAL VASCULAR ANGIOPLASTY STATUS W 04/03/2018 GORDO EASTMAN FACC, ALI FACP CCDS Ot D64.9 ANEMIA, UNSPECIFIED 04/03/2018 GORDO EASTMAN FACC, ALI FACP CCDS Ot E11.43 TYPE 2 DIABETES W DIABETIC AUTONOMIC (PO 04/03/2018 GORDO EASTMAN FACC, ALI FACP CCDS Ot E66.9 OBESITY, UNSPECIFIED 04/03/2018 GORDO EASTMAN FACC, ALI FACP CCDS Ot E78.5 HYPERLIPIDEMIA, UNSPECIFIED 04/03/2018 GORDO EASTMAN FACC, ALI FACP CCDS Ot I10 ESSENTIAL (PRIMARY) HYPERTENSION 04/03/2018 GORDO EASTMAN FACC, ALI FACP CCDS Ot I25.10 ATHSCL HEART DISEASE OF [place] CORONARY 04/03/2018 GORDO EASTMAN FACC, ALI FACP CCDS Ot Z68.33 BODY MASS INDEX (BMI) 33.0-33.9, ADULT 04/03/2018 GORDO EASTMAN FACC, ALI FACP CCDS Ot Z79.4 INTERNET MARKETING EXECUTIVE (CURRENT) USE OF INSULIN 04/03/2018 GORDO EASTMAN FACC, ALI FACP CCDS Ot Z79.82 INTERNET MARKETING EXECUTIVE (CURRENT) USE OF ASPIRIN 04/03/2018 GORDO EASTMAN FACC, ALI FACP CCDS Ot Z79.899 OTHER INTERNET MARKETING EXECUTIVE (CURRENT) DRUG THERAPY 04/03/2018 GORDO EASTMAN FACC, ALI FACP CCDS Ot Z87.891 PERSONAL HISTORY OF NICOTINE DEPENDENCE 04/03/2018 GORDO EASTMAN FACC, ALI FACP CCDS Ot Z95.820 PERIPHERAL VASCULAR ANGIOPLASTY STATUS W 04/28/2018 Ot E11.40 TYP E 2 DIABETES MELLITUS WITH DIABETIC N 04/28/2018 Ot E11.51 TYP E 2 DIABETES W DIABETIC PERIPHERAL AN 04/28/2018 Ot E11.622 TY PE 2 DIABETES MELLITUS WITH OTHER SKIN 04/28/2018 Ot E11.65 TYP E 2 DIABETES MELLITUS WITH HYPERGLYCE 04/28/2018 Ot I10 ESSENT IAL (PRIMARY) HYPERTENSION 04/28/2018 Ot K21.9 ANTONIO RO-ESOPHAGEAL REFLUX DISEASE WITHOUT 04/28/2018 Ot L03.031 CE LLULITIS OF RIGHT TOE 04/28/2018 Ot L97.519 NO N-PRS CHRONIC ULCER OTH PRT RIGHT FOOT 04/28/2018 Ot M20.41 OTH ER HAMMER TOE(S) (ACQUIRED), RIGHT FO 04/28/2018 Ot M79.7 FIBR OMYALGIA 04/28/2018 Ot Z79.4 CARE HOME (CURRENT) USE OF INSULIN 04/28/2018 Ot Z87.891 PE RSONAL HISTORY OF NICOTINE DEPENDENCE 10/18/2018 GELLENDER DO, TAYO Vera Ot N39.0 URINARY TRACT INFECTION, SITE NOT SPECIF 11/10/2018 GELLENDER DO, TAYO Vera Ot R05 COUGH 11/10/2018 GELLENDER DOTAYO Ot R09.89 OTH SYMPTOMS AND SIGNS INVOLVING THE CIR 11/12/2018 [facility] Vera Ot D64.9 ANEMIA, UNSPECIFIED 11/12/2018 [facility], TAYO Vera Ot E11.649 TYPE 2 DIABETES MELLITUS WITH HYPOGLYCEM 11/12/2018 [facility] T[facility]O Ot E87.6 HYPOKALEMIA 11/12/2018 [facility] TAYO Ot I10 ESSENTIAL (PRIMARY) HYPERTENSION 11/12/2018 [facility] I25.10 ATHSCL HEART DISEASE OF [place] CORONARY 11/12/2018 [facility] TAYO Ot I73.9 PERIPHERAL VASCULAR DISEASE, UNSPECIFIED 11/12/2018 [facility] Ot J18.9 PNEUMONIA, UNSPECIFIED ORGANISM 11/12/2018 [facility] T[facility] Ot K21.9 GASTRO-ESOPHAGEAL REFLUX DISEASE WITHOUT 11/12/2018 GELLENDER DOTAYO Ot M79.7 FIBROMYALGIA 11/12/2018 [facility] DOT[facility] Ot Z79.84 CARE HOME (CURRENT) USE OF ORAL HYPOGLYC 12/06/2018 [facility] DOT[facility]O Ot R10.9 UNSPECIFIED ABDOMINAL PAIN 12/06/2018 [facility] DOT[facility] Ot R11.0 NAUSEA 01/10/2019 W 250.80 YANIRA BETES MELLITUS WITH OTHER SPECIFIED MANIFESTATIONS, TYPE II OR UNSPECIFIED TYPE, NOT STATED UNCONTROLLED 01/10/2019 W 272.4 OTHE R AND UNSPECIFIED HYPERLIPIDEMIA 01/10/2019 W 401.0 [place] GNANT ESSENTIAL HYPERTENSION 01/10/2019 W 414.01 COR ONARY ATHEROSCLEROSIS OF [place] CORONARY ARTERY 01/10/2019 W 599.0 URIN CHRIS TRACT INFECTION, SITE NOT SPECIFIED 01/10/2019 W 724.4 THOR ACIC OR LUMBOSACRAL NEURITIS OR RADICULITIS, UNSPECIFIED 01/10/2019 W 786.59 OTH ER CHEST PAIN 01/10/2019 W E11.65 TYP E 2 DIABETES MELLITUS WITH HYPERGLYCEMIA 01/10/2019 W E78.5 HYPE RLIPIDEMIA, UNSPECIFIED 01/10/2019 W I10 ESSENT IAL (PRIMARY) HYPERTENSION 01/10/2019 W I25.10 ATH EROSCLEROTIC HEART DISEASE OF [place] CORONARY ARTERY WITHOUT ANGINA PECTORIS 01/10/2019 W M54.14 RAD ICULOPATHY, THORACIC REGION 01/10/2019 W N39.0 URIN CHRIS TRACT INFECTION, SITE NOT SPECIFIED 01/10/2019 W R07.81 PLE URODYNIA 02/09/2019 GORDO EASTMAN FACC, DEBORA FACP CCDS Ot E11.40 TYPE 2 DIABETES MELLITUS WITH DIABETIC N 02/09/2019 GORDO EASTMAN FACC, ALI FACP CCDS Ot E11.621 TYPE 2 DIABETES MELLITUS WITH FOOT ULCER 02/09/2019 GORDO EASTMAN FACC, ALI FACP CCDS Ot I10 ESSENTIAL (PRIMARY) HYPERTENSION 02/09/2019 GORDO EASTMAN FACC, ALI FACP CCDS Ot I25.10 ATHSCL HEART DISEASE OF [place] CORONARY 02/09/2019 GORDO EASTMAN FACC, ALI FACP CCDS Ot I73.9 PERIPHERAL VASCULAR DISEASE, UNSPECIFIED 02/09/2019 GORDO EASTMAN FACC, ALI FACP CCDS Ot L97.519 NON-PRS CHRONIC ULCER OTH PRT RIGHT FOOT 02/09/2019 GORDO EASTMAN FACC, DEBORA FACP CCDS Ot Z79.4 INTERNET MARKETING EXECUTIVE (CURRENT) USE OF INSULIN 02/09/2019 GORDO EASTMAN FACC, DEBORA FACP CCDS Ot Z79.82 CARE HOME (CURRENT) USE OF ASPIRIN 02/09/2019 GORDO EASTMAN FACC, ALI FACP CCDS Ot Z79.899 OTHER CARE HOME (CURRENT) DRUG THERAPY 02/09/2019 GORDO EASTMAN FACC, ALI FACP CCDS Ot Z87.891 PERSONAL HISTORY OF NICOTINE DEPENDENCE 02/09/2019 GORDO EASTMAN FACC, ALI FACP CCDS Ot Z95.5 PRESENCE OF CORONARY ANGIOPLASTY IMPLANT 02/15/2019 GORDO EASTMAN [facility] FACP CCDS Ot E11.40 TYPE 2 DIABETES MELLITUS WITH DIABETIC N 02/15/2019 GORDO EASTMAN FACC, [facility] FACP CCDS Ot E11.621 TYPE 2 DIABETES MELLITUS WITH FOOT ULCER 02/15/2019 GORDO EASTMAN [facility], ALI FACP CCDS Ot I10 ESSENTIAL (PRIMARY) HYPERTENSION 02/15/2019 GORDO EASTMAN FACC, DEBORA FACP CCDS Ot I25.10 ATHSCL HEART DISEASE OF [place] CORONARY 02/15/2019 GORDO EASTMAN [facility], ALI FACP CCDS Ot I73.9 PERIPHERAL VASCULAR DISEASE, UNSPECIFIED 02/15/2019 [facility]ORDO EASTMAN [facility] FACP CCDS Ot L97.519 NON-PRS CHRONIC ULCER OTH PRT RIGHT FOOT 02/15/2019 GORDO EASTMAN FACC, ALI FACP CCDS Ot Z79.4 INTERNET MARKETING EXECUTIVE (CURRENT) USE OF INSULIN 02/15/2019 DEBORA CARO MD, FACC FACP CCDS Ot Z79.82 INTERNET MARKETING EXECUTIVE (CURRENT) USE OF ASPIRIN 02/15/2019 GORDO EASTMAN [facility], ALI FACP CCDS Ot Z79.899 OTHER CARE HOME (CURRENT) DRUG THERAPY 02/15/2019 GORDO EASTMAN [facility] FACP CCDS Ot Z87.891 PERSONAL HISTORY OF NICOTINE DEPENDENCE 02/15/2019 GORDO EASTMAN [facility], ALI FACP CCDS Ot Z95.5 PRESENCE OF CORONARY ANGIOPLASTY IMPLANT 02/25/2019 DEBBIE TAYLOR APRN Ot E11.40 TYPE 2 DIABETES MELLITUS WITH DIABETIC N 02/25/2019 DEBBIE TAYLOR MUD ENGINEER Ot E11.621 TYPE 2 DIABETES MELLITUS WITH FOOT ULCER 02/25/2019 DEBBIE TAYLOR MUD ENGINEER Ot I10 ESSENTIAL (PRIMARY) HYPERTENSION 02/25/2019 DEBBIE TAYLOR APRN Ot I25.10 ATHSCL HEART DISEASE OF [place] CORONARY 02/25/2019 DEBBIE TAYLOR APRN Ot I73 .9 PERIPHERAL VASCULAR DISEASE, UNSPECIFIED 02/25/2019 DEBBIE TAYLOR APRN Ot K21 .9 GASTRO-ESOPHAGEAL REFLUX DISEASE WITHOUT 02/25/2019 DEBBIE TAYLOR APRN Ot L97.509 NON-PRESSURE CHRONIC ULCER OTH PRT UNSP 02/25/2019 DEBBIE TAYLOR APRN Ot R07.89 OTHER CHEST PAIN 02/25/2019 DEBBIE TAYLOR APRN Ot Z79.02 CARE HOME (CURRENT) USE OF ANTITHROMBOTI 02/25/2019 DEBBIE TAYLOR APRN Ot Z79 .4 CARE HOME (CURRENT) USE OF INSULIN 02/25/2019 DEBBIE TAYLOR APRN Ot Z79.82 CARE HOME (CURRENT) USE OF ASPIRIN 02/25/2019 DEBBIE TAYLOR APRN Ot Z80 .1 FAMILY HISTORY OF MALIG NEOPLASM OF [place] 02/25/2019 DEBBIE TAYLOR APRN Ot Z80 .3 FAMILY HISTORY OF MALIGNANT NEOPLASM OF 02/25/2019 DEBBIE TAYLOR APRN Ot Z82.49 FAMILY HX OF ISCHEM HEART DIS AND OTH DI 02/25/2019 DEBBIE TAYLOR APRN Ot Z87.440 PERSONAL HISTORY OF URINARY (TRACT) INFE 02/25/2019 DEBBIE TAYLOR APRN Ot Z87.891 PERSONAL HISTORY OF NICOTINE DEPENDENCE 02/25/2019 DEBBIE TAYLOR APRN Ot Z95 .5 PRESENCE OF CORONARY ANGIOPLASTY IMPLANT 02/25/2019 DEBBIE TAYLOR APRN Ot Z98.51 TUBAL LIGATION STATUS 02/27/2019 TAYO SUTTON DO Ot Z12.31 ENCNTR SCREEN MAMMOGRAM FOR MALIGNANT NE 02/28/2019 DEBBIE TAYLOR APRN Ot E11.40 TYPE 2 DIABETES MELLITUS WITH DIABETIC N 02/28/2019 DEBBIE TAYLOR APRN Ot E11.621 TYPE 2 DIABETES MELLITUS WITH FOOT ULCER 02/28/2019 DEBBIE TAYLOR APRN Ot I10 ESSENTIAL (PRIMARY) HYPERTENSION 02/28/2019 DEBBIE TAYLOR APRN Ot I25.10 ATHSCL HEART DISEASE OF [place] CORONARY 02/28/2019 DEBBIE TAYLOR APRN Ot I73 .9 PERIPHERAL VASCULAR DISEASE, UNSPECIFIED 02/28/2019 DEBBIE TAYLOR APRN Ot K21 .9 GASTRO-ESOPHAGEAL REFLUX DISEASE WITHOUT 02/28/2019 DEBBIE TAYLOR APRN Ot L97.509 NON-PRESSURE CHRONIC ULCER OTH PRT UNSP 02/28/2019 DEBBIE TAYLOR APRN Ot R07.89 OTHER CHEST PAIN 02/28/2019 DEBBIE TAYLOR APRN Ot Z79.02 INTERNET MARKETING EXECUTIVE (CURRENT) USE OF ANTITHROMBOTI 02/28/2019 TAYLOR, PETER J MUD ENGINEER Ot Z79 .4 CARE HOME (CURRENT) USE OF INSULIN 02/28/2019 DEBBIE TAYLOR MUD ENGINEER Ot Z79.82 CARE HOME (CURRENT) USE OF ASPIRIN 02/28/2019 DEBBIE TAYLOR MUD ENGINEER Ot Z80 .1 FAMILY HISTORY OF MALIG NEOPLASM OF [place] 02/28/2019 DEBBIE TAYLOR MUD ENGINEER Ot Z80 .3 FAMILY HISTORY OF MALIGNANT NEOPLASM OF 02/28/2019 DEBBIE TAYLOR MUD ENGINEER Ot Z82.49 FAMILY HX OF ISCHEM HEART DIS AND OTH DI 02/28/2019 DEBBIE TAYLOR MUD ENGINEER Ot Z87.440 PERSONAL HISTORY OF URINARY (TRACT) INFE 02/28/2019 DEBBIE TAYLOR MUD ENGINEER Ot Z87.891 PERSONAL HISTORY OF NICOTINE DEPENDENCE 02/28/2019 DEBBIE TAYLOR APRN Ot Z95 .5 PRESENCE OF CORONARY ANGIOPLASTY IMPLANT 02/28/2019 DEBBIE TAYLOR MUD ENGINEER Ot Z98.51 TUBAL LIGATION STATUS 03/09/2019 GORDO EASTMAN FACC, DEBORA FACP CCDS Ot E11.40 TYPE 2 DIABETES MELLITUS WITH DIABETIC N 03/09/2019 GORDO EASTMAN FACC, ALI FACP CCDS Ot E11.621 TYPE 2 DIABETES MELLITUS WITH FOOT ULCER 03/09/2019 GORDO EASTMAN FACC, DEBORA FACP CCDS Ot I10 ESSENTIAL (PRIMARY) HYPERTENSION 03/09/2019 GORDO EASTMAN FACC, DEBORA FACP CCDS Ot I25.10 ATHSCL HEART DISEASE OF [place] CORONARY 03/09/2019 GORDO EASTMAN FACC, ALI FACP CCDS Ot I73.9 PERIPHERAL VASCULAR DISEASE, UNSPECIFIED 03/09/2019 GORDO EASTMAN FACC, ALI FACP CCDS Ot L97.519 NON-PRS CHRONIC ULCER OTH PRT RIGHT FOOT 03/09/2019 GORDO EASTMAN FACC, DEBORA FACP CCDS Ot Z79.4 INTERNET MARKETING EXECUTIVE (CURRENT) USE OF INSULIN 03/09/2019 DEBORA CARO MD, FACC FACP CCDS Ot Z79.82 INTERNET MARKETING EXECUTIVE (CURRENT) USE OF ASPIRIN 03/09/2019 GORDO EASTMAN FACC ALI FACP CCDS Ot Z79.899 OTHER CARE HOME (CURRENT) DRUG THERAPY 03/09/2019 DEBORA CARO MD, FACC FACP CCDS Ot Z87.891 PERSONAL HISTORY OF NICOTINE DEPENDENCE 03/09/2019 GORDO MD FACC, ALI FACP CCDS Ot Z95.5 PRESENCE OF CORONARY ANGIOPLASTY IMPLANT 03/10/2019 GORDO EASTMAN FACC, ALI FACP CCDS Ot E11.40 TYPE 2 DIABETES MELLITUS WITH DIABETIC N 03/10/2019 GORDO EASTMAN FACC, ALI FACP CCDS Ot E11.621 TYPE 2 DIABETES MELLITUS WITH FOOT ULCER 03/10/2019 GORDO EASTMAN FACC, ALI FACP CCDS Ot I10 ESSENTIAL (PRIMARY) HYPERTENSION 03/10/2019 GORDO EASTMAN FACC, ALI FACP CCDS Ot I25.10 ATHSCL HEART DISEASE OF [place] CORONARY 03/10/2019 GORDO EASTMAN FACC, ALI FACP CCDS Ot I73.9 PERIPHERAL VASCULAR DISEASE, UNSPECIFIED 03/10/2019 GORDO EASTMAN FACC, ALI FACP CCDS Ot L97.519 NON-PRS CHRONIC ULCER OTH PRT RIGHT FOOT 03/10/2019 DEBORA CARO MD, FACC FACP CCDS Ot Z79.4 CARE HOME (CURRENT) USE OF INSULIN 03/10/2019 DEBORA CARO MD, FACC FACP CCDS Ot Z79.82 INTERNET MARKETING EXECUTIVE (CURRENT) USE OF ASPIRIN 03/10/2019 GORDO EASTMAN FACC, DEBORA FACP CCDS Ot Z79.899 OTHER INTERNET MARKETING EXECUTIVE (CURRENT) DRUG THERAPY 03/10/2019 GORDO EASTMAN FACC, ALI FACP CCDS Ot Z87.891 PERSONAL HISTORY OF NICOTINE DEPENDENCE 03/10/2019 GORDO EASTMAN FACC, ALI FACP CCDS Ot Z95.5 PRESENCE OF CORONARY ANGIOPLASTY IMPLANT 03/10/2019 GORDO EASTMAN FACC, ALI FACP CCDS Ot E11.40 TYPE 2 DIABETES MELLITUS WITH DIABETIC N 03/10/2019 GORDO EASTMAN FACC, DEBORA FACP CCDS Ot E11.621 TYPE 2 DIABETES MELLITUS WITH FOOT ULCER 03/10/2019 GORDO EASTMAN FACC, ALI FACP CCDS Ot I10 ESSENTIAL (PRIMARY) HYPERTENSION 03/10/2019 GORDO EASTMAN FACC, ALI FACP CCDS Ot I25.10 ATHSCL HEART DISEASE OF [place] CORONARY 03/10/2019 GORDO EASTMAN FACC, ALI FACP CCDS Ot I73.9 PERIPHERAL VASCULAR DISEASE, UNSPECIFIED 03/10/2019 GORDO EASTMAN FACC, ALI FACP CCDS Ot L97.519 NON-PRS CHRONIC ULCER OTH PRT RIGHT FOOT 03/10/2019 GORDO EASTMAN FACC, DEBORA FACP CCDS Ot Z79.4 INTERNET MARKETING EXECUTIVE (CURRENT) USE OF INSULIN 03/10/2019 GORDO EASTMAN FACC, [facility] Ot Z79.82 CARE HOME (CURRENT) USE OF ASPIRIN 03/10/2019 GORDO EASTMAN FACC, ALI FACP CCDS Ot Z79.899 OTHER INTERNET MARKETING EXECUTIVE (CURRENT) DRUG THERAPY 03/10/2019 GORDO EASTMAN FACC, DE[facility]ORA [facility] CCD[facility] Ot Z87.891 PERSONAL HISTORY OF NICOTINE DEPENDENCE 03/10/2019 GORDO EASTMAN FACC, [facility]ORA [facility] CCD[facility] Ot Z95.5 PRESENCE OF CORONARY ANGIOPLASTY IMPLANT 03/31/2019 LESLEY THOMPSON TAYO A Ot Z12.31 ENCNTR SCREEN MAMMOGRAM FOR MALIGNANT NE 03/31/2019 RAY PEACOCK APRN Ot L97.513 NON-PRS CHRONIC ULCER OTH PRT RIGHT FOOT 03/31/2019 LESLEY THOMPSON TAYO A Ot M54.2 CERVICALGIA 03/31/2019 RAY PEACOCK MUD ENGINEER Ot E11.42 TYPE 2 DIABETES MELLITUS WITH DIABETIC P 03/31/2019 RAY PEACOCK MUD ENGINEER Ot E11.621 TYPE 2 DIABETES MELLITUS WITH FOOT ULCER 03/31/2019 RAY PEACOCK MUD ENGINEER Ot L97.512 NON-PRS CHRONIC ULCER OTH PRT RIGHT FOOT 03/31/2019 RAY PEACOCK MUD ENGINEER Ot E11.42 TYPE 2 DIABETES MELLITUS WITH DIABETIC P 03/31/2019 RAY PEACOCK MUD ENGINEER Ot E11.621 TYPE 2 DIABETES MELLITUS WITH FOOT ULCER 03/31/2019 RAY PEACOCK MUD ENGINEER Ot L97.512 NON-PRS CHRONIC ULCER OTH PRT RIGHT FOOT 03/31/2019 RAY PEACOCK MUD ENGINEER Ot E11.42 TYPE 2 DIABETES MELLITUS WITH DIABETIC P 03/31/2019 RAY PEACOCK MUD ENGINEER Ot E11.621 TYPE 2 DIABETES MELLITUS WITH FOOT ULCER 03/31/2019 RAY PEACOCK MUD ENGINEER Ot L97.512 NON-PRS CHRONIC ULCER OTH PRT RIGHT FOOT 03/31/2019 RAY PEACOCK MUD ENGINEER Ot E11.42 TYPE 2 DIABETES MELLITUS WITH DIABETIC P 03/31/2019 RAY PEACOCK MUD ENGINEER Ot E11.621 TYPE 2 DIABETES MELLITUS WITH FOOT ULCER 03/31/2019 RAY PEACOCK MUD ENGINEER Ot L97.512 NON-PRS CHRONIC ULCER OTH PRT RIGHT FOOT 03/31/2019 TAYO SUTTON DO Ot R06.02 SHORTNESS OF BREATH 03/31/2019 TAYO SUTTON DO Ot R53.1 WEAKNESS 03/31/2019 TAYO SUTTON DO Ot R60.9 EDEMA, UNSPECIFIED 03/31/2019 TAYO SUTTON DO Ot K76.0 FATTY (CHANGE OF) LIVER, NOT ELSEWHERE C 03/31/2019 TAYO SUTTON DO Ot R10.11 RIGHT UPPER QUADRANT PAIN 03/31/2019 TAYO SUTTON DO Ot R16.0 HEPATOMEGALY, NOT ELSEWHERE CLASSIFIED 03/31/2019 TAYO SUTTON DO Ot K82.8 OTHER SPECIFIED DISEASES OF GALLBLADDER 03/31/2019 TAYO SUTTON DO Ot R10.11 RIGHT UPPER QUADRANT PAIN 03/31/2019 RAY PEACOCK APRN Ot E11.42 TYPE 2 DIABETES MELLITUS WITH DIABETIC P 03/31/2019 RAY PEACOCK APRN Ot E11.621 TYPE 2 DIABETES MELLITUS WITH FOOT ULCER 03/31/2019 RAY PEACOCK MUD ENGINEER Ot L97.512 NON-PRS CHRONIC ULCER OTH PRT RIGHT FOOT 03/31/2019 RAY PEACOCK APRN Ot Z45.2 ENCOUNTER FOR ADJUSTMENT AND MANAGEMENT 03/31/2019 RAY PEACOCK APRN Ot E11.42 TYPE 2 DIABETES MELLITUS WITH DIABETIC P 03/31/2019 RAY PEACOCK MUD ENGINEER Ot E11.621 TYPE 2 DIABETES MELLITUS WITH FOOT ULCER 03/31/2019 RAY PEACOCK MUD ENGINEER Ot L97.512 NON-PRS CHRONIC ULCER OTH PRT RIGHT FOOT 03/31/2019 RAY PEACOCK APRN Ot E11.42 TYPE 2 DIABETES MELLITUS WITH DIABETIC P 03/31/2019 RAY PEACOCK MUD ENGINEER Ot E11.621 TYPE 2 DIABETES MELLITUS WITH FOOT ULCER 03/31/2019 RAY PEACOCK APRN Ot L97.512 NON-PRS CHRONIC ULCER OTH PRT RIGHT FOOT 03/31/2019 RAY PEACOCK MUD ENGINEER Ot E11.42 TYPE 2 DIABETES MELLITUS WITH DIABETIC P 03/31/2019 RAY PEACOCK MUD ENGINEER Ot E11.621 TYPE 2 DIABETES MELLITUS WITH FOOT ULCER 03/31/2019 RAY PEACOCK MUD ENGINEER Ot L97.512 NON-PRS CHRONIC ULCER OTH PRT RIGHT FOOT 03/31/2019 RAY PEACOCK MUD ENGINEER Ot E11.42 TYPE 2 DIABETES MELLITUS WITH DIABETIC P 03/31/2019 RAY PEACOCK MUD ENGINEER Ot E11.621 TYPE 2 DIABETES MELLITUS WITH FOOT ULCER 03/31/2019 RAY PEACOCK MUD ENGINEER Ot L97.512 NON-PRS CHRONIC ULCER OTH PRT RIGHT FOOT 03/31/2019 GELLENDER DO, TAYO Vera Ot Z12.31 ENCNTR SCREEN MAMMOGRAM FOR MALIGNANT NE 03/31/2019 RAY PEACOCK MUD ENGINEER Ot E11.42 TYPE 2 DIABETES MELLITUS WITH DIABETIC P 03/31/2019 RAY PEACOCK MUD ENGINEER Ot E11.621 TYPE 2 DIABETES MELLITUS WITH FOOT ULCER 03/31/2019 RAY PEACOCK MUD ENGINEER Ot L97.512 NON-PRS CHRONIC ULCER OTH PRT RIGHT FOOT 03/31/2019 RAY PEACOCK MUD ENGINEER Ot E11.42 TYPE 2 DIABETES MELLITUS WITH DIABETIC P 03/31/2019 RAY PEACOCK MUD ENGINEER Ot E11.621 TYPE 2 DIABETES MELLITUS WITH FOOT ULCER 03/31/2019 RAY PEACOCK MUD ENGINEER Ot L97.512 NON-PRS CHRONIC ULCER OTH PRT RIGHT FOOT 03/31/2019 YENNI EASTMAN, MARÍA ELENA Erwin Ot E11.621 TYPE 2 DIABETES MELLITUS WITH FOOT ULCER 03/31/2019 YENNI EASTMAN, MARÍA ELENA Erwin Ot I70.235 ATHSCL [place] ARTERIES OF RIGHT LEG W UL 03/31/2019 YENNI EASTMAN, MARÍA ELENA Erwin Ot L97.512 NON-PRS CHRONIC ULCER OTH PRT RIGHT FOOT 03/31/2019 GELLENDER DO, TAYO Vera Ot N39.0 URINARY TRACT INFECTION, SITE NOT SPECIF 03/31/2019 GELLENDER DOTAYO Ot R05 COUGH 03/31/2019 GELLENDER DOTAYO Ot R09.89 OTH SYMPTOMS AND SIGNS INVOLVING THE CIR 03/31/2019 GELLENDER DOTAYO Ot R10.12 LEFT UPPER QUADRANT PAIN 03/31/2019 GELLENDER DOTAYO Ot R10.9 UNSPECIFIED ABDOMINAL PAIN 03/31/2019 GELLENDER DOTAYO Ot R11.0 NAUSEA 03/31/2019 GELLENDER DOTAYO Ot Z12.31 ENCNTR SCREEN MAMMOGRAM FOR MALIGNANT NE 07/17/2019 GELLENDER DOTAYO Ot Z48.812 ENCNTR FOR SURGICAL AFTCR FOLLOWING SURG 07/17/2019 LESLEY THOMPSON, TAYO Jody Ot Z95.5 PRESENCE OF CORONARY ANGIOPLASTY IMPLANT 07/20/2019 LESLEY THOMPSON, TAYO Vera Ot Z48.812 ENCNTR FOR SURGICAL AFTCR FOLLOWING SURG 07/20/2019 LESLEY THOMPSON, TAYO Vera Ot Z95.5 PRESENCE OF CORONARY ANGIOPLASTY IMPLANT 08/16/2019 LESLEY THOMPSONTAYO Ot Z12.31 ENCNTR SCREEN MAMMOGRAM FOR MALIGNANT NE 08/16/2019 RAY PEACOCK MUD ENGINEER Ot L97.513 NON-PRS CHRONIC ULCER OTH PRT RIGHT FOOT 08/16/2019 LESLEY THOMPSONTAYO Ot M54.2 CERVICALGIA 08/16/2019 RAY PEACOCK MUD ENGINEER Ot E11.42 TYPE 2 DIABETES MELLITUS WITH DIABETIC P 08/16/2019 RAY PEACOCK MUD ENGINEER Ot E11.621 TYPE 2 DIABETES MELLITUS WITH FOOT ULCER 08/16/2019 RAY PEACOCK MUD ENGINEER Ot L97.512 NON-PRS CHRONIC ULCER OTH PRT RIGHT FOOT 08/16/2019 RAY PEACOCK MUD ENGINEER Ot E11.42 TYPE 2 DIABETES MELLITUS WITH DIABETIC P 08/16/2019 RAY PEACOCK MUD ENGINEER Ot E11.621 TYPE 2 DIABETES MELLITUS WITH FOOT ULCER 08/16/2019 RAY PEACOCK MUD ENGINEER Ot L97.512 NON-PRS CHRONIC ULCER OTH PRT RIGHT FOOT 08/16/2019 RAY PEACOCK MUD ENGINEER Ot E11.42 TYPE 2 DIABETES MELLITUS WITH DIABETIC P 08/16/2019 RAY PEACOCK MUD ENGINEER Ot E11.621 TYPE 2 DIABETES MELLITUS WITH FOOT ULCER 08/16/2019 RAY PEACOCK MUD ENGINEER Ot L97.512 NON-PRS CHRONIC ULCER OTH PRT RIGHT FOOT 08/16/2019 RAY PEACOCK MUD ENGINEER Ot E11.42 TYPE 2 DIABETES MELLITUS WITH DIABETIC P 08/16/2019 RAY PEACOCK MUD ENGINEER Ot E11.621 TYPE 2 DIABETES MELLITUS WITH FOOT ULCER 08/16/2019 RAY PEACOCK MUD ENGINEER Ot L97.512 NON-PRS CHRONIC ULCER OTH PRT RIGHT FOOT 08/16/2019 MARANDAKUNALMCNAIRTAYO Ot R06.02 SHORTNESS OF BREATH 08/16/2019 JIMANUELITO TAYO THOMPSON Ot R53.1 WEAKNESS 08/16/2019 TAYO SUTTON DO Ot R60.9 EDEMA, UNSPECIFIED 08/16/2019 TAYO SUTTON DO Ot K76.0 FATTY (CHANGE OF) LIVER, NOT ELSEWHERE C 08/16/2019 TAYO SUTTON DO Ot R10.11 RIGHT UPPER QUADRANT PAIN 08/16/2019 TAYO SUTTON DO Ot R16.0 HEPATOMEGALY, NOT ELSEWHERE CLASSIFIED 08/16/2019 TAYO SUTTON DO Ot K82.8 OTHER SPECIFIED DISEASES OF GALLBLADDER 08/16/2019 TAYO SUTTON DO Ot R10.11 RIGHT UPPER QUADRANT PAIN 08/16/2019 RAY PEACOCK MUD ENGINEER Ot E11.42 TYPE 2 DIABETES MELLITUS WITH DIABETIC P 08/16/2019 RAY PEACOCK MUD ENGINEER Ot E11.621 TYPE 2 DIABETES MELLITUS WITH FOOT ULCER 08/16/2019 RAY PEACOCK MUD ENGINEER Ot L97.512 NON-PRS CHRONIC ULCER OTH PRT RIGHT FOOT 08/16/2019 RAY PEACOCK APRN Ot Z45.2 ENCOUNTER FOR ADJUSTMENT AND MANAGEMENT 08/16/2019 RAY PEACOCK MUD ENGINEER Ot E11.42 TYPE 2 DIABETES MELLITUS WITH DIABETIC P 08/16/2019 RAY PEACOCK MUD ENGINEER Ot E11.621 TYPE 2 DIABETES MELLITUS WITH FOOT ULCER 08/16/2019 RAY PEACOCK MUD ENGINEER Ot L97.512 NON-PRS CHRONIC ULCER OTH PRT RIGHT FOOT 08/16/2019 RAY PEACOCK MUD ENGINEER Ot E11.42 TYPE 2 DIABETES MELLITUS WITH DIABETIC P 08/16/2019 RAY PEACOCK MUD ENGINEER Ot E11.621 TYPE 2 DIABETES MELLITUS WITH FOOT ULCER 08/16/2019 RAY PEACOCK MUD ENGINEER Ot L97.512 NON-PRS CHRONIC ULCER OTH PRT RIGHT FOOT 08/16/2019 RAY PEACOCK MUD ENGINEER Ot E11.42 TYPE 2 DIABETES MELLITUS WITH DIABETIC P 08/16/2019 RAY PEACOCK MUD ENGINEER Ot E11.621 TYPE 2 DIABETES MELLITUS WITH FOOT ULCER 08/16/2019 RAY PEACOCK MUD ENGINEER Ot L97.512 NON-PRS CHRONIC ULCER OTH PRT RIGHT FOOT 08/16/2019 RAY PEACOCK MUD ENGINEER Ot E11.42 TYPE 2 DIABETES MELLITUS WITH DIABETIC P 08/16/2019 RAY PEACOCK MUD ENGINEER Ot E11.621 TYPE 2 DIABETES MELLITUS WITH FOOT ULCER 08/16/2019 RAY PEACOCK MUD ENGINEER Ot L97.512 NON-PRS CHRONIC ULCER OTH PRT RIGHT FOOT 08/16/2019 MARANDATAYO HUDSON DO Ot Z12.31 ENCNTR SCREEN MAMMOGRAM FOR MALIGNANT NE 08/16/2019 RAY PEACOCK MUD ENGINEER Ot E11.42 TYPE 2 DIABETES MELLITUS WITH DIABETIC P 08/16/2019 RAY PEACOCK MUD ENGINEER Ot E11.621 TYPE 2 DIABETES MELLITUS WITH FOOT ULCER 08/16/2019 RAY PEACOCK MUD ENGINEER Ot L97.512 NON-PRS CHRONIC ULCER OTH PRT RIGHT FOOT 08/16/2019 RAY PEACOCK MUD ENGINEER Ot E11.42 TYPE 2 DIABETES MELLITUS WITH DIABETIC P 08/16/2019 RAY PEACOCK MUD ENGINEER Ot E11.621 TYPE 2 DIABETES MELLITUS WITH FOOT ULCER 08/16/2019 RAY PEACOCK MUD ENGINEER Ot L97.512 NON-PRS CHRONIC ULCER OTH PRT RIGHT FOOT 08/16/2019 YENNI EASTMAN, MARÍA ELENA Erwin Ot E11.621 TYPE 2 DIABETES MELLITUS WITH FOOT ULCER 08/16/2019 YENNI EASTMAN, MARÍA ELENA Erwin Ot I70.235 ATHSCL [place] ARTERIES OF RIGHT LEG W UL 08/16/2019 YENNI EASTMAN, MARÍA ELENA Erwin Ot L97.512 NON-PRS CHRONIC ULCER OTH PRT RIGHT FOOT 08/16/2019 TAYO SUTTON DO Ot N39.0 URINARY TRACT INFECTION, SITE NOT SPECIF 08/16/2019 JIMANUELITO TAYO THOMPSON Ot R05 COUGH 08/16/2019 LESLEY DOTAYO Ot R09.89 OTH SYMPTOMS AND SIGNS INVOLVING THE CIR 08/16/2019 TAYO SUTTON DO Ot R10.12 LEFT UPPER QUADRANT PAIN 08/16/2019 JIDER DOTAYO Ot R10.9 UNSPECIFIED ABDOMINAL PAIN 08/16/2019 LESLEY DOTAYO Ot R11.0 NAUSEA 08/16/2019 TAYO SUTTON DO Ot Z12.31 ENCNTR SCREEN MAMMOGRAM FOR MALIGNANT NE 08/16/2019 JIMANUELITO TAYO THOMPSON Ot Z48.812 ENCNTR FOR SURGICAL AFTCR FOLLOWING SURG 08/16/2019 JIMANUELITO TAYO THOMPSON Ot Z95.5 PRESENCE OF CORONARY ANGIOPLASTY IMPLANT 08/18/2019 TAYO SUTTON DO Ot B96.20 UNSP ESCHERICHIA COLI THE CAUSE OF DI 08/18/2019 [facility], TAYO Vera Ot E11.40 TYPE 2 DIABETES MELLITUS WITH DIABETIC N 08/18/2019 [facility], TAYO Vera Ot E11.621 TYPE 2 DIABETES MELLITUS WITH FOOT ULCER 08/18/2019 [facility], TAYO Vera Ot I11.0 HYPERTENSIVE HEART DISEASE WITH HEART FA 08/18/2019 [facility], TAYO Vera Ot I25.10 ATHSCL HEART DISEASE OF [place] CORONARY 08/18/2019 [facility], TAYO Vera Ot I34.0 NONRHEUMATIC MITRAL (VALVE) INSUFFICIENC 08/18/2019 [facility], TAYO Vera Ot I50.33 ACUTE ON CHRONIC DIASTOLIC (CONGESTIVE) 08/18/2019 [facility], TAYO Vera Ot I73.9 PERIPHERAL VASCULAR DISEASE, UNSPECIFIED 08/18/2019 [facility], TAYO Vera Ot K21.9 GASTRO-ESOPHAGEAL REFLUX DISEASE WITHOUT 08/18/2019 [facility], TAYO Vera Ot L97.519 NON-PRS CHRONIC ULCER OTH PRT RIGHT FOOT 08/18/2019 [facility], TAYO Vera Ot M79.7 FIBROMYALGIA 08/18/2019 [facility], TAYO Vera Ot N39.0 URINARY TRACT INFECTION, SITE NOT SPECIF 08/18/2019 [facility], TAYO Vera Ot R59.1 GENERALIZED ENLARGED LYMPH NODES 08/18/2019 [facility], TAYO Vera Ot Z87.891 PERSONAL HISTORY OF NICOTINE DEPENDENCE 08/18/2019 [facility], TAYO Vera Ot Z95.5 PRESENCE OF CORONARY ANGIOPLASTY IMPLANT 08/26/2019 [facility], TAYO Vera Ot Z12.31 ENCNTR SCREEN MAMMOGRAM FOR MALIGNANT NE 08/26/2019 RAY PEACOCK APRN Ot L97.513 NON-PRS CHRONIC ULCER OTH PRT RIGHT FOOT 08/26/2019 [facility], TAYO Vera Ot M54.2 CERVICALGIA 08/26/2019 RAY PEACOCK APRN Ot E11.42 TYPE 2 DIABETES MELLITUS WITH DIABETIC P 08/26/2019 RAY PEACOCK APRN Ot E11.621 TYPE 2 DIABETES MELLITUS WITH FOOT ULCER 08/26/2019 RAY PEACOCK MUD ENGINEER Ot L97.512 NON-PRS CHRONIC ULCER OTH PRT RIGHT FOOT 08/26/2019 RAY PEACOCK APRN Ot E11.42 TYPE 2 DIABETES MELLITUS WITH DIABETIC P 08/26/2019 RAY PEACOCK MUD ENGINEER Ot E11.621 TYPE 2 DIABETES MELLITUS WITH FOOT ULCER 08/26/2019 RAY PEACOCK MUD ENGINEER Ot L97.512 NON-PRS CHRONIC ULCER OTH PRT RIGHT FOOT 08/26/2019 RAY PEACOCK APRN Ot E11.42 TYPE 2 DIABETES MELLITUS WITH DIABETIC P 08/26/2019 RAY PEACOCK APRN Ot E11.621 TYPE 2 DIABETES MELLITUS WITH FOOT ULCER 08/26/2019 RAY PEACOCK MUD ENGINEER Ot L97.512 NON-PRS CHRONIC ULCER OTH PRT RIGHT FOOT 08/26/2019 RAY PEACOCK APRN Ot E11.42 TYPE 2 DIABETES MELLITUS WITH DIABETIC P 08/26/2019 RAY PEACOCK MUD ENGINEER Ot E11.621 TYPE 2 DIABETES MELLITUS WITH FOOT ULCER 08/26/2019 RAY PEACOCK MUD ENGINEER Ot L97.512 NON-PRS CHRONIC ULCER OTH PRT RIGHT FOOT 08/26/2019 [facility] DO, TAYO Vera Ot R06.02 SHORTNESS OF BREATH 08/26/2019 GELLENDER DO, TAYO Vera Ot R53.1 WEAKNESS 08/26/2019 GELLENDER DOTAYO Ot R60.9 EDEMA, UNSPECIFIED 08/26/2019 GELLENDER DO, TAYO Vera Ot K76.0 FATTY (CHANGE OF) LIVER, NOT ELSEWHERE C 08/26/2019 GELLENDER DOTAYO Ot R10.11 RIGHT UPPER QUADRANT PAIN 08/26/2019 GELLENDER DO, TAYO Vera Ot R16.0 HEPATOMEGALY, NOT ELSEWHERE CLASSIFIED 08/26/2019 GELLENDER DOTAYO Ot K82.8 OTHER SPECIFIED DISEASES OF GALLBLADDER 08/26/2019 GELLENDER DOTAYO Ot R10.11 RIGHT UPPER QUADRANT PAIN 08/26/2019 RAY PEACOCK MUD ENGINEER Ot E11.42 TYPE 2 DIABETES MELLITUS WITH DIABETIC P 08/26/2019 RAY PEACOCK MUD ENGINEER Ot E11.621 TYPE 2 DIABETES MELLITUS WITH FOOT ULCER 08/26/2019 RAY PEACOCK MUD ENGINEER Ot L97.512 NON-PRS CHRONIC ULCER OTH PRT RIGHT FOOT 08/26/2019 RAY PEACOCK MUD ENGINEER Ot Z45.2 ENCOUNTER FOR ADJUSTMENT AND MANAGEMENT 08/26/2019 RAY PEACOCK MUD ENGINEER Ot E11.42 TYPE 2 DIABETES MELLITUS WITH DIABETIC P 08/26/2019 RAY PEACOCK MUD ENGINEER Ot E11.621 TYPE 2 DIABETES MELLITUS WITH FOOT ULCER 08/26/2019 RAY PEACOCK MUD ENGINEER Ot L97.512 NON-PRS CHRONIC ULCER OTH PRT RIGHT FOOT 08/26/2019 AYUSHRAY R MUD ENGINEER Ot E11.42 TYPE 2 DIABETES MELLITUS WITH DIABETIC P 08/26/2019 AYUSHRAY R MUD ENGINEER Ot E11.621 TYPE 2 DIABETES MELLITUS WITH FOOT ULCER 08/26/2019 RAY PEACOCK MUD ENGINEER Ot L97.512 NON-PRS CHRONIC ULCER OTH PRT RIGHT FOOT 08/26/2019 RAY PEACOCK MUD ENGINEER Ot E11.42 TYPE 2 DIABETES MELLITUS WITH DIABETIC P 08/26/2019 RAY PEACOCK MUD ENGINEER Ot E11.621 TYPE 2 DIABETES MELLITUS WITH FOOT ULCER 08/26/2019 RAY PEACOCK MUD ENGINEER Ot L97.512 NON-PRS CHRONIC ULCER OTH PRT RIGHT FOOT 08/26/2019 RAY PEACOCK MUD ENGINEER Ot E11.42 TYPE 2 DIABETES MELLITUS WITH DIABETIC P 08/26/2019 RAY PEACOCK MUD ENGINEER Ot E11.621 TYPE 2 DIABETES MELLITUS WITH FOOT ULCER 08/26/2019 RAY PEACOCK MUD ENGINEER Ot L97.512 NON-PRS CHRONIC ULCER OTH PRT RIGHT FOOT 08/26/2019 TAYO SUTTON DO Ot Z12.31 ENCNTR SCREEN MAMMOGRAM FOR MALIGNANT NE 08/26/2019 RAY PEACOCK MUD ENGINEER Ot E11.42 TYPE 2 DIABETES MELLITUS WITH DIABETIC P 08/26/2019 RAY PEACOCK MUD ENGINEER Ot E11.621 TYPE 2 DIABETES MELLITUS WITH FOOT ULCER 08/26/2019 RAY PEACOCK MUD ENGINEER Ot L97.512 NON-PRS CHRONIC ULCER OTH PRT RIGHT FOOT 08/26/2019 RAY PEACOCK MUD ENGINEER Ot E11.42 TYPE 2 DIABETES MELLITUS WITH DIABETIC P 08/26/2019 RAY PEACOCK MUD ENGINEER Ot E11.621 TYPE 2 DIABETES MELLITUS WITH FOOT ULCER 08/26/2019 RAY PEACOCK MUD ENGINEER Ot L97.512 NON-PRS CHRONIC ULCER OTH PRT RIGHT FOOT 08/26/2019 MARÍA ELENA HYMAN MD Ot E11.621 TYPE 2 DIABETES MELLITUS WITH FOOT ULCER 08/26/2019 MARÍA ELENA HYMAN MD Ot I70.235 ATHSCL [place] ARTERIES OF RIGHT LEG W UL 08/26/2019 YENNI EASTMAN, MARÍA ELENA Erwin Ot L97.512 NON-PRS CHRONIC ULCER OTH PRT RIGHT FOOT 08/26/2019 GELLENDER DO, TAYO Jody Ot N39.0 URINARY TRACT INFECTION, SITE NOT SPECIF 08/26/2019 GELLENDER DO, TAYO Jody Ot R05 COUGH 08/26/2019 GELLENDER DO, TAYO Vera Ot R09.89 OTH SYMPTOMS AND SIGNS INVOLVING THE CIR 08/26/2019 GELLENDER DO, TAYO Vera Ot R10.12 LEFT UPPER QUADRANT PAIN 08/26/2019 GELLENDER DO, TAYO Vera Ot R10.9 UNSPECIFIED ABDOMINAL PAIN 08/26/2019 GELLENDER DO, TAYO Vera Ot R11.0 NAUSEA 08/26/2019 GELLENDER DO, TAYO Vera Ot Z12.31 ENCNTR SCREEN MAMMOGRAM FOR MALIGNANT NE 08/26/2019 GELLENDER DO, TAYO Vera Ot Z48.812 ENCNTR FOR SURGICAL AFTCR FOLLOWING SURG 08/26/2019 GELLENDER DO, TAYO Vera Ot Z95.5 PRESENCE OF CORONARY ANGIOPLASTY IMPLANT 08/29/2019 GELLENDER DO, TAYO Jody Ot N39.0 URINARY TRACT INFECTION, SITE NOT SPECIF 08/29/2019 GELLENDER DO, TAYO Vera Ot R05 COUGH 08/29/2019 GELLENDER DO, TAYO Vera Ot R09.89 OTH SYMPTOMS AND SIGNS INVOLVING THE CIR 08/29/2019 GELLENDER DO, TAYO Vera Ot R10.12 LEFT UPPER QUADRANT PAIN 08/29/2019 GELLENDER DO, TAYO Vera Ot R10.9 UNSPECIFIED ABDOMINAL PAIN 08/29/2019 GELLENDER DO, TAYO Vera Ot R11.0 NAUSEA 08/29/2019 GELLENDER DO, TAYO Vera Ot Z12.31 ENCNTR SCREEN MAMMOGRAM FOR MALIGNANT NE 08/29/2019 GELLEND[facility] DO, TAYO Vera Ot Z48.812 ENCNTR FOR SURGICAL AFTCR FOLLOWING SURG 08/29/2019 GELLENDER DO, TAYO Vera Ot Z95.5 PRESENCE OF CORONARY ANGIOPLASTY IMPLANT 03/06/2020 Carmen Farias E11.65 TYPE 2 DIABETES MELLITUS WITH HYPERGLYCEMIA 03/06/2020 Carmen Farias R07.81 PLEURODYNIA 03/06/2020 Carmen Farias E11.65 TYPE 2 DIABETES MELLITUS WITH HYPERGLYCEMIA 03/06/2020 Farias, Carmen W E78.5 HYPERLIPIDEMIA, UNSPECIFIED 03/06/2020 Farias, Carmen W I10 ESSENTIAL (PRIMARY) HYPERTENSION 03/06/2020 Farias, Carmen W I25.10 ATHSCL HEART DISEASE OF [place] CORONARY ARTERY W/O ANG PCTRS 03/06/2020 Farias, Carmen W M54.14 RADICULOPATHY, THORACIC REGION 03/06/2020 Farias, Carmen W N39.0 URINARY TRACT INFECTION, SITE NOT SPECIFIED 03/06/2020 Farias, Carmen W R07.81 PLEURODYNIA 03/06/2020 Farias, Cramen W 599.0 URINARY TRACT INFECTION, SITE NOT SPECIFIED 03/06/2020 Farias, Carmen W A41 OTHER SEPSIS 03/06/2020 Farias, Carmen W E11.65 TYPE 2 DIABETES MELLITUS WITH HYPERGLYCEMIA 03/06/2020 Farias, Carmen W E78.5 HYPERLIPIDEMIA, UNSPECIFIED 03/06/2020 Farias, Carmen W I10 ESSENTIAL (PRIMARY) HYPERTENSION 03/06/2020 Farias, Carmen W 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 03/06/2020 Farias, Carmen W I25.10 ATHSCL HEART DISEASE OF [place] CORONARY ARTERY W/O ANG PCTRS 03/06/2020 Farias, Carmen W M54.14 RADICULOPATHY, THORACIC REGION 03/06/2020 Farias, Carmen W N39.0 URINARY TRACT INFECTION, SITE NOT SPECIFIED 03/06/2020 Farias, Carmen W R07.81 PLEURODYNIA 03/06/2020 Farias, Carmen W 250.00 DIABETES MELLITUS WITHOUT MENTION OF COMPLICATION, TYPE II OR UNSPECIFIED TYPE, NOT STATED UNCONTROLLED 03/06/2020 Farias, Carmne W 272.4 OTHER AND UNSPECIFIED HYPERLIPIDEMIA 03/06/2020 Farias, Carmen W 428.30 UNSPECIFIED DIASTOLIC HEART FAILURE 03/06/2020 Farias, Carmen W 599.0 URINARY TRACT INFECTION, SITE NOT SPECIFIED 03/06/2020 Farias, Carmen W A41 OTHER SEPSIS 03/06/2020 Farias, Carmen W E11.65 TYPE 2 DIABETES MELLITUS WITH HYPERGLYCEMIA 03/06/2020 Farias, Carmen W E11.9 TYPE 2 DIABETES MELLITUS WITHOUT COMPLICATIONS 03/06/2020 Farias, Carmen W E78.5 HYPERLIPIDEMIA, UNSPECIFIED 03/06/2020 Dinora Carmen W I10 ESSENTIAL (PRIMARY) HYPERTENSION 03/06/2020 Farias, Carmen W 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 03/06/2020 Farias, Carmen W I25.10 ATHSCL HEART DISEASE OF [place] CORONARY ARTERY W/O ANG PCTRS 03/06/2020 Farias, Carmen W I50.30 UNSPECIFIED DIASTOLIC (CONGESTIVE) HEART FAILURE 03/06/2020 Dinora Carmen W M54.14 RADICULOPATHY, THORACIC REGION 03/06/2020 Farias, Carmen W N39.0 URINARY TRACT INFECTION, SITE NOT SPECIFIED 03/06/2020 Dinora Carmen W R07.81 PLEURODYNIA 03/12/2020 Farias, Carmen W 250.00 DIABETES MELLITUS WITHOUT MENTION OF COMPLICATION, TYPE II OR UNSPECIFIED TYPE, NOT STATED UNCONTROLLED 03/12/2020 Dinora Carmen W 272.4 OTHER AND UNSPECIFIED HYPERLIPIDEMIA 03/12/2020 Dinora Carmen W 428.30 UNSPECIFIED DIASTOLIC HEART FAILURE 03/12/2020 Dinora Carmen W 599.0 URINARY TRACT INFECTION, SITE NOT SPECIFIED 03/12/2020 Giovani Fariasi W A41 OTHER SEPSIS 03/12/2020 Dinora Carmen W E11.65 TYPE 2 DIABETES MELLITUS WITH HYPERGLYCEMIA 03/12/2020 Farias, Carmen W E11.9 TYPE 2 DIABETES MELLITUS WITHOUT COMPLICATIONS 03/12/2020 Dinora Carmen W E78.5 HYPERLIPIDEMIA, UNSPECIFIED 03/12/2020 Farias, Carmen W I10 ESSENTIAL (PRIMARY) HYPERTENSION 03/12/2020 Dinora Carmen W 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 03/12/2020 Farias, Carmen W I25.10 ATHSCL HEART DISEASE OF [place] CORONARY ARTERY W/O ANG PCTRS 03/12/2020 Farias, Carmen W I50.30 UNSPECIFIED DIASTOLIC (CONGESTIVE) HEART FAILURE 03/12/2020 Dinora Carmen W M54.14 RADICULOPATHY, THORACIC REGION 03/12/2020 Farias, Carmen W N39.0 URINARY TRACT INFECTION, SITE NOT SPECIFIED 03/12/2020 Dinora Carmen W R07.81 PLEURODYNIA 03/14/2020 LYNN DELEON APRN W 280 .9 IRON DEFICIENCY ANEMIA, UNSPECIFIED 03/14/2020 PANCHO MUD ENGINEER, ANDREY W D50 .9 IRON DEFICIENCY ANEMIA, UNSPECIFIED 03/14/2020 PANCHO MUD ENGINEER, LYNN W E11 .65 TYPE 2 DIABETES MELLITUS WITH HYPERGLYCEMIA 03/14/2020 PANCHO MUD ENGINEER, ANDREY W E11 .9 TYPE 2 DIABETES MELLITUS WITHOUT COMPLICATIONS 03/14/2020 PANCHO MUD ENGINEER, ANDREY W E78 .5 HYPERLIPIDEMIA, UNSPECIFIED 03/14/2020 PANCHO MUD ENGINEER, ANDREY W I10 ESSENTIAL (PRIMARY) HYPERTENSION 03/14/2020 PANCHO MUD ENGINEER, ANDREY W I25 .10 ATHSCL HEART DISEASE OF [place] CORONARY ARTERY W/O ANG PCTRS 03/14/2020 PANCHO MUD ENGINEER, ANDREY W I50 .30 UNSPECIFIED DIASTOLIC (CONGESTIVE) HEART FAILURE 03/14/2020 PANCHO MUD ENGINEER, ANDREY W M54 .14 RADICULOPATHY, THORACIC REGION 03/14/2020 PANCHO MUD ENGINEER, ANDREY W N39 .0 URINARY TRACT INFECTION, SITE NOT SPECIFIED 03/14/2020 PANCHO MUD ENGINEER, LYNN W R07 .81 PLEURODYNIA 03/16/2020 Farias, Carmen W 280.9 IRON DEFICIENCY ANEMIA, UNSPECIFIED 03/16/2020 Farias, Carmen W D50.9 IRON DEFICIENCY ANEMIA, UNSPECIFIED 03/16/2020 Farias, Carmen W E11.65 TYPE 2 DIABETES MELLITUS WITH HYPERGLYCEMIA 03/16/2020 Farias, Carmen W E11.9 TYPE 2 DIABETES MELLITUS WITHOUT COMPLICATIONS 03/16/2020 Farias, Carmen W E78.5 HYPERLIPIDEMIA, UNSPECIFIED 03/16/2020 Farias, Carmen W I10 ESSENTIAL (PRIMARY) HYPERTENSION 03/16/2020 Dinora Carmen W I25.10 ATHSCL HEART DISEASE OF [place] CORONARY ARTERY W/O ANG PCTRS 03/16/2020 Farias, Carmen W I50.30 UNSPECIFIED DIASTOLIC (CONGESTIVE) HEART FAILURE 03/16/2020 Farias, Carmen W M54.14 RADICULOPATHY, THORACIC REGION 03/16/2020 Farias, Carmen W N39.0 URINARY TRACT INFECTION, SITE NOT SPECIFIED 03/16/2020 Farias, Carmen W R07.81 PLEURODYNIA 04/02/2020 RAY PEACOCK APRN Ot E11.42 TYPE 2 DIABETES MELLITUS WITH DIABETIC P 04/02/2020 RAY PEACOCK APRN Ot E11.621 TYPE 2 DIABETES MELLITUS WITH FOOT ULCER 04/02/2020 RAY PEACOCK APRN Ot L97.512 NON-PRS CHRONIC ULCER OTH PRT RIGHT FOOT 04/02/2020 RAY PEACOCK APRN Ot Z45.2 ENCOUNTER FOR ADJUSTMENT AND MANAGEMENT 04/02/2020 LESLEY THOMPSON TAYO Vera Ot Z48.812 ENCNTR FOR SURGICAL AFTCR FOLLOWING SURG 04/02/2020 LESLEY THOMPSON TAYO Vera Ot Z95.5 PRESENCE OF CORONARY ANGIOPLASTY IMPLANT Procedures Code Description Performed By Per formed On [id number] EX TRACTION OF RIGHT FOOT SKIN, EXTERNAL 04/27/2018 Results Test Result Range Bacteria identification in isolate by an aerobe culture - 04/22/16 12:49 Bacteria identification in isolate by anaerobe culture NOANA NRG Gram stain microscopy - 04/22/16 12:49 GRAM STAIN RESULT FEW WBC'S, NO BACTERIA OBSERVED NRG Bacteria identification in wound by cult ure - 04/22/16 12:49 Bacteria identification in wound by culture [id number] NRG FREE TEXT EXTERNAL SENSITIVITY REPORTED 04/23/16 16 :50 NRG QUANTITY OF GROWTH Moderate Growth NRG MRSA AGAR Screening test for MRSA is N EGATIVE (Final to follow) NRG Bacterial susceptibility panel - 6 12:49 Oxacillin susceptibility test by minimum inhibitory co ncentration <= NRG Gentamicin susceptibility test by minimum inhibitory c oncentration <= NRG Clindamycin susceptibility test by minimum inhibitory concentration <= NRG Erythromycin susceptibility test by minimum inhibitory concentration <= NRG Trimethoprim/sulfamethoxazole susceptibi lity test by minimum inhibitoryconcentration <= NRG Vancomycin susceptibility test by minimum inhibitory c oncentration <= NRG Levofloxacin susceptibility test by minimum inhibitory concentration <= NRG Rifampin susceptibility test by minimum inhibitory con centration <= NRG Tetracycline susceptibility test by minimum inhibitory concentration <= NRG Bacterial susceptibility panel - 6 12:49 Gentamicin susceptibility test by minimum inhibitory c oncentration <= NRG Trimethoprim/sulfamethoxazole susceptibi lity test by minimum inhibitoryconcentration <= NRG Tobramycin susceptibility test by minimum inhibitory c oncentration <= NRG Cefazolin susceptibility test by minimum inhibitory co ncentration >= NRG Piperacillin/tazobactam susceptibility t est by minimum inhibitory concentration <= NRG Ciprofloxacin susceptibility test by minimum inhibitor y concentration <= NRG Meropenem susceptibility test by minimum inhibitory co ncentration <= NRG Aztreonam susceptibility test by minimum inhibitory co ncentration <= NRG Cefepime susceptibility test by minimum inhibitory con centration <= NRG Complete urinalysis with reflex to cultu re - 04/26/16 11:48 Urine color determination YELLOW NRG Urine clarity determination SLIGHTLY CLOUDY NRG Urine pH measurement by test strip 5 5-9 Specific gravity of urine by test strip 1.025 1.016-1.022 Urine protein assay by test strip, semi-quantitative 1+ NEGATIVE Urine glucose detection by automated test strip 3+ NEGATIVE Erythrocytes detection in urine sediment by light micr oscopy NEGATIVE NEGATIVE Urine ketones detection by automated test strip NE GATIVE NEGATIVE Urine nitrite detection by test strip NEGATIVE NEGATIVE Urine total bilirubin detection by test strip NEGA TIVE NEGATIVE Urine urobilinogen measurement by automated test strip (mass/volume) NORMAL NORMAL Urine leukocyte esterase detection by dipstick 1+ NEGATIVE Automated urine sediment erythrocyte cou nt by microscopy (number/high power field) NONE NRG Automated urine sediment leukocyte count by microscopy (number/high power field) RARE NRG Bacteria detection in urine sediment by light microsco py NEGATIVE NRG Squamous epithelial cells detection in u rine sediment by light microscopy 5-10 NRG Crystals detection in urine sediment by light microsco py PRESENT NRG Casts detection in urine sediment by light microscopy NONE NRG Mucus detection in urine sediment by light microscopy NEGATIVE NRG Complete urinalysis with reflex to culture NO NRG Yeast detection in urine sediment by light microscopy FEW NRG Calcium oxalate crystals detection in ur ine sediment by light microscopy FEW NRG Whole blood basic metabolic panel - 04/16 13:46 Serum or plasma sodium measurement (moles/volume) 133 mmol/L 135-145 Serum or plasma potassium measurement (moles/volume) 5.2 mmol/L 3.6-5.0 Serum or plasma chloride measurement (moles/volume) 103 mmol/L 98-107 Carbon dioxide 19 mmol/L 21-32 Serum or plasma anion gap determination (moles/volume) 11 mmol/L 5-14 Serum or plasma urea nitrogen measurement (mass/volume ) 26 mg/dL 7-18 Serum or plasma creatinine measurement (mass/volume) 0.79 mg/dL 0.60-1.30 Serum or plasma urea nitrogen/creatinine mass ratio 33 NRG Serum or plasma creatinine measurement w ith calculation of estimated glomerular filtration rate > NRG Serum or plasma glucose measurement (mass/volume) 165 mg/dL 70-105 Serum or plasma calcium measurement (mass/volume) 9.4 mg/dL 8.5-10.1 Automated blood complete blood count (he mogram) panel - 06/03/16 07:20 Blood leukocytes automated count (number/volume) 8.8 10*3/uL 4.3-11.0 Blood erythrocytes automated count (number/volume) 4.46 10*6/uL 4.35-5.85 Venous blood hemoglobin measurement (mass/volume) 12.7 g/dL 11.5-16.0 Blood hematocrit (volume fraction) 39 % 35-52 Automated erythrocyte mean corpuscular volume 87 [ foz_us] 80-99 Automated erythrocyte mean corpuscular h emoglobin (mass per erythrocyte) 29 pg 25-34 Automated erythrocyte mean corpuscular h emoglobin concentration measurement (mass/volume) 33 g/dL 32-36 Automated erythrocyte distribution width ratio 14. 4 % 10.0- 14.5 Automated blood platelet count (count/volume) 248 10*3/uL 130-400 Automated blood platelet mean volume measurement 9.4 [foz_us] 7.4-10.4 PT panel in platelet poor plasma by coag ulation assay - 06/03/16 07:20 Prothrombin time (PT) in platelet poor plasma by coagu lation assay 11.8 s 12.2-14.7 INR in platelet poor plasma or blood by coagulation as say 0.9 0.8-1.4 Activated partial thromboplastin time (a PTT) in platelet poor plasma bycoagulation assay - 06/03/16 07:20 Activated partial thromboplastin time (a PTT) in platelet poor plasma bycoagulation assay 29 s 24-35 Comprehensive metabolic panel - 06/03/16 07:20 Serum or plasma sodium measurement (moles/volume) 139 mmol/L 135-145 Serum or plasma potassium measurement (moles/volume) 4.1 mmol/L 3.6-5.0 Serum or plasma chloride measurement (moles/volume) 104 mmol/L 98-107 Carbon dioxide 22 mmol/L 21-32 Serum or plasma anion gap determination (moles/volume) 13 mmol/L 5-14 Serum or plasma urea nitrogen measurement (mass/volume ) 18 mg/dL 7-18 Serum or plasma creatinine measurement (mass/volume) 0.75 mg/dL 0.60-1.30 Serum or plasma urea nitrogen/creatinine mass ratio 24 NRG Serum or plasma creatinine measurement w ith calculation of estimated glomerular filtration rate > NRG Serum or plasma glucose measurement (mass/volume) 134 mg/dL 70-105 Serum or plasma calcium measurement (mass/volume) 10.1 mg/dL 8.5-10.1 Serum or plasma total bilirubin measurement (mass/volu me) 0.2 mg/dL 0.1-1.0 Serum or plasma alkaline phosphatase marty surement (enzymatic activity/volume) 78 U/L 40-136 Serum or plasma aspartate aminotransfera se measurement (enzymatic activity/volume) 14 U/L 5-34 Serum or plasma alanine aminotransferase measurement (enzymatic activity/volume) 22 U/L 0-55 Serum or plasma protein measurement (mass/volume) 7.0 g/dL 6.4-8.2 Serum or plasma albumin measurement (mass/volume) 4.2 g/dL 3.2-4.5 Lipid 1996 panel - 06/03/16 07:20 Serum or plasma triglyceride measurement (mass/volume) 193 mg/dL <150 Serum or plasma cholesterol measurement (mass/volume) 205 mg/dL < 200 Serum or plasma cholesterol in HDL measurement (mass/v olume) 37 mg/dL 40-60 Cholesterol in LDL [mass/volume] in serum or plasma by direct assay 123 mg/dL 1-129 Serum or plasma cholesterol in VLDL measurement (mass/ volume) 39 mg/dL 5-40 Methicillin resistant Staphylococcus aur eus (MRSA) screening culture - 06/03/16 07:20 Methicillin resistant Staphylococcus aureus (MRSA) scr eening culture NEG NRG Bacteria identification in isolate by an aerobe culture - 06/17/16 13:17 Bacteria identification in isolate by anaerobe culture NOANA NRG Gram stain microscopy - 06/17/16 13:17 GRAM STAIN RESULT FEW GRAM POSITIVE COCCI RESEMBLI NG STAPH NRG Bacteria identification in wound by cult ure - 06/17/16 13:17 Bacteria identification in wound by culture [id number] NRG FREE TEXT EXTERNAL SENSITIVITY REPORTED 06/21/16 11 :35 NRG QUANTITY OF GROWTH Scant Growth NRG MRSA AGAR Screening test for MRSA is N EGATIVE (Final to follow) NRG Bacterial susceptibility panel - 13:17 Oxacillin susceptibility test by minimum inhibitory co ncentration <= NRG Gentamicin susceptibility test by minimum inhibitory c oncentration <= NRG Clindamycin susceptibility test by minimum inhibitory concentration <= NRG Erythromycin susceptibility test by minimum inhibitory concentration <= NRG Trimethoprim/sulfamethoxazole susceptibi lity test by minimum inhibitoryconcentration <= NRG Vancomycin susceptibility test by minimum inhibitory c oncentration 1 NRG Levofloxacin susceptibility test by minimum inhibitory concentration 0.25 NRG Rifampin susceptibility test by minimum inhibitory con centration <= NRG Tetracycline susceptibility test by minimum inhibitory concentration <= NRG Bacterial susceptibility panel - 13:17 Gentamicin susceptibility test by minimum inhibitory c oncentration <= NRG Trimethoprim/sulfamethoxazole susceptibi lity test by minimum inhibitoryconcentration <= NRG Tobramycin susceptibility test by minimum inhibitory c oncentration <= NRG Cefazolin susceptibility test by minimum inhibitory co ncentration >= NRG Piperacillin/tazobactam susceptibility t est by minimum inhibitory concentration <= NRG Ciprofloxacin susceptibility test by minimum inhibitor y concentration <= NRG Meropenem susceptibility test by minimum inhibitory co ncentration <= NRG Aztreonam susceptibility test by minimum inhibitory co ncentration <= NRG Cefepime susceptibility test by minimum inhibitory con centration <= NRG Bacterial susceptibility panel - 13:17 Gentamicin susceptibility test by minimum inhibitory c oncentration R NRG Erythromycin susceptibility test by minimum inhibitory concentration >= NRG Vancomycin susceptibility test by minimum inhibitory c oncentration 1 NRG Ampicillin susceptibility test by minimum inhibitory c oncentration <= NRG Linezolid susceptibility test by minimum inhibitory co ncentration 2 NRG Whole blood basic metabolic panel - 06/14 04/29 14:08 Serum or plasma sodium measurement (moles/volume) 139 mmol/L 135-145 Serum or plasma potassium measurement (moles/volume) 4.4 mmol/L 3.6-5.0 Serum or plasma chloride measurement (moles/volume) 103 mmol/L 98-107 Carbon dioxide 24 mmol/L 21-32 Serum or plasma anion gap determination (moles/volume) 12 mmol/L 5-14 Serum or plasma urea nitrogen measurement (mass/volume ) 14 mg/dL 7-18 Serum or plasma creatinine measurement (mass/volume) 0.73 mg/dL 0.60-1.30 Serum or plasma urea nitrogen/creatinine mass ratio 19 NRG Serum or plasma creatinine measurement w ith calculation of estimated glomerular filtration rate > NRG Serum or plasma glucose measurement (mass/volume) 83 mg/dL 70-105 Serum or plasma calcium measurement (mass/volume) 9.8 mg/dL 8.5-10.1 Bacteria identification in isolate by an aerobe culture - 07/15/16 13:00 Bacteria identification in isolate by anaerobe culture NOANA NRG Gram stain microscopy - 07/15/16 13:00 GRAM STAIN RESULT FEW WBC'S, NO BACTERIA OBSERVED NRG Bacteria identification in wound by cult ure - 07/15/16 13:00 Bacteria identification in wound by culture [id number] NRG FREE TEXT EXTERNAL (CORYNEBACTERIUM J K RULED OUT) NRG QUANTITY OF GROWTH Scant Growth NRG MRSA AGAR Screening test for MRSA is N EGATIVE (Final to follow) [facility] Bacterial susceptibility panel - 6 13:00 Oxacillin susceptibility test by minimum inhibitory co ncentration <= NRG Gentamicin susceptibility test by minimum inhibitory c oncentration <= NRG Clindamycin susceptibility test by minimum inhibitory concentration <= NRG Erythromycin susceptibility test by minimum inhibitory concentration <= NRG Trimethoprim/sulfamethoxazole susceptibi lity test by minimum inhibitoryconcentration <= NRG Vancomycin susceptibility test by minimum inhibitory c oncentration <= NRG Levofloxacin susceptibility test by minimum inhibitory concentration 0.25 NRG Rifampin susceptibility test by minimum inhibitory con centration <= NRG Tetracycline susceptibility test by minimum inhibitory concentration <= NRG Bacteria identification in isolate by an aerobe culture - 11/27/16 13:03 QUANTITY OF GROWTH Moderate Growth NRG Bacteria identification in isolate by anaerobe culture [id number] NRG Gram stain microscopy - 11/27/16 13:03 GRAM STAIN RESULT NO BACTERIA NRG Bacteria identification in wound by cult ure - 11/27/16 13:03 Bacteria identification in wound by culture [id number] NRG FREE TEXT EXTERNAL PROBABLE CORYNEBACTERIUM [facility]) NRG QUANTITY OF GROWTH Scant Growth NRG FREE TEXT ENTRY 2 SEE COMMENTS NRG FREE TEXT ENTRY 3 SEE COMMENT [facility] Bacterial susceptibility panel - 7 13:03 Gentamicin susceptibility test by minimum inhibitory c oncentration R NRG Erythromycin susceptibility test by minimum inhibitory concentration >= NRG Vancomycin susceptibility test by minimum inhibitory c oncentration 1 NRG Ampicillin susceptibility test by minimum inhibitory c oncentration <= NRG Linezolid susceptibility test by minimum inhibitory co ncentration 1 NR Bacterial susceptibility panel - 7 13:03 Oxacillin susceptibility test by minimum inhibitory co ncentration 0.5 NRG Gentamicin susceptibility test by minimum inhibitory c oncentration <= NRG Clindamycin susceptibility test by minimum inhibitory concentration 0.5 NRG Erythromycin susceptibility test by minimum inhibitory concentration >= NRG Trimethoprim/sulfamethoxazole susceptibi lity test by minimum inhibitoryconcentration <= NRG Vancomycin susceptibility test by minimum inhibitory c oncentration <= NRG Levofloxacin susceptibility test by minimum inhibitory concentration 0.5 NRG Rifampin susceptibility test by minimum inhibitory con centration <= NRG Tetracycline susceptibility test by minimum inhibitory concentration <= NRG Whole blood basic metabolic panel - 01/28 13:40 Serum or plasma sodium measurement (moles/volume) 138 mmol/L 135-145 Serum or plasma potassium measurement (moles/volume) 4.2 mmol/L 3.6-5.0 Serum or plasma chloride measurement (moles/volume) 102 mmol/L 98-107 Carbon dioxide 24 mmol/L 21-32 Serum or plasma anion gap determination (moles/volume) 12 mmol/L 5-14 Serum or plasma urea nitrogen measurement (mass/volume ) 18 mg/dL 7-18 Serum or plasma creatinine measurement (mass/volume) 0.72 mg/dL 0.60-1.30 Serum or plasma urea nitrogen/creatinine mass ratio 25 NRG Serum or plasma creatinine measurement w ith calculation of estimated glomerular filtration rate > NRG Serum or plasma glucose measurement (mass/volume) 257 mg/dL 70-105 Serum or plasma calcium measurement (mass/volume) 9.0 mg/dL 8.5-10.1 Vancomycin trough - 12/19/16 07:09 Vancomycin trough 9.2 ug/mL 10.0-20.0 Vancomycin trough - 12/21/16 07:15 Vancomycin trough 14.8 ug/mL 10.0-20.0 Vancomycin trough - 12/26/16 06:35 Vancomycin trough 8.4 ug/mL 10.0-20.0 Vancomycin trough - 01/01/17 07:20 Vancomycin trough 9.3 ug/mL 10.0-20.0 Complete blood count (CBC) with automate d white blood cell (WBC) differential - 01/09/17 12:23 Blood leukocytes automated count (number/volume) 8.4 10*3/uL 4.3-11.0 Blood erythrocytes automated count (number/volume) 4.91 10*6/uL 4.35-5.85 Venous blood hemoglobin measurement (mass/volume) 13.5 g/dL 11.5-16.0 Blood hematocrit (volume fraction) 43 % 35-52 Automated erythrocyte mean corpuscular volume 87 [ foz_us] 80-99 Automated erythrocyte mean corpuscular h emoglobin (mass per erythrocyte) 28 pg 25-34 Automated erythrocyte mean corpuscular h emoglobin concentration measurement (mass/volume) 32 g/dL 32-36 Automated erythrocyte distribution width ratio 14. 9 % 10.0- 14.5 Automated blood platelet count (count/volume) 248 10*3/uL 130-400 Automated blood platelet mean volume measurement 8.9 [foz_us] 7.4-10.4 Automated blood neutrophils/100 leukocytes 64 % 42-75 Automated blood lymphocytes/100 leukocytes 24 % 12-44 Blood monocytes/100 leukocytes 7 % 0-12 Automated blood eosinophils/100 leukocytes 4 % 0-10 Automated blood basophils/100 leukocytes 1 % 0-10 Blood neutrophils automated count (number/volume) 5.4 10*3 1.8-7.8 Blood lymphocytes automated count (number/volume) 2.0 10*3 1.0-4.0 Blood monocytes automated count (number/volume) 0. 6 10*3 0.0-1.0 Automated eosinophil count 0.3 10*3/uL 0 .0-0.3 Automated blood basophil count (count/volume) 0.1 10*3/uL 0.0-0.1 Fibrin D-dimer FEU measurement in platel et poor plasma (mass/volume) - 01/09/17 12:23 Fibrin D-dimer FEU measurement in platelet poor plasma (mass/volume) 0.30 ug/mL 0.00-0.49 Bacteria identification in isolate by an aerobe culture - 01/13/17 13:51 Bacteria identification in isolate by anaerobe culture NG NRG Gram stain microscopy - 01/13/17 13:51 GRAM STAIN RESULT NO WBC'S OR BACTERIA OBSERVED NRG Bacteria identification in wound by cult ure - 01/13/17 13:51 Bacteria identification in wound by culture NG NRG Bacteria identification in isolate by an aerobe culture - 03/31/17 11:54 Bacteria identification in isolate by anaerobe culture NOANA NRG Gram stain microscopy - 03/31/17 11:54 GRAM STAIN RESULT NO WBC'S OR BACTERIA OBSERVED NRG Bacteria identification in wound by cult ure - 03/31/17 11:54 Bacteria identification in wound by culture CORAMY NRG FREE TEXT EXTERNAL SENT TO REFERENCE LAB 04/05 NRG QUANTITY OF GROWTH Scant Growth NRG MRSA AGAR Screening test for MRSA is N EGATIVE (Final to follow) NRG Bacterial susceptibility panel - 7 11:54 Oxacillin susceptibility test by minimum inhibitory co ncentration <= NRG Gentamicin susceptibility test by minimum inhibitory c oncentration <= NRG Clindamycin susceptibility test by minimum inhibitory concentration <= NRG Erythromycin susceptibility test by minimum inhibitory concentration <= NRG Trimethoprim/sulfamethoxazole susceptibi lity test by minimum inhibitoryconcentration <= NRG Vancomycin susceptibility test by minimum inhibitory c oncentration <= NRG Levofloxacin susceptibility test by minimum inhibitory concentration <= NRG Rifampin susceptibility test by minimum inhibitory con centration <= NRG Tetracycline susceptibility test by minimum inhibitory concentration <= NRG Complete urinalysis with reflex to cultu re - 05/06/17 19:05 Urine color determination YELLOW NRG Urine clarity determination SLIGHTLY CLOUDY NRG Urine pH measurement by test strip 5 5-9 Specific gravity of urine by test strip 1.025 1.016-1.022 Urine protein assay by test strip, semi-quantitative 1+ NEGATIVE Urine glucose detection by automated test strip 4+ NEGATIVE Erythrocytes detection in urine sediment by light micr oscopy NEGATIVE NEGATIVE Urine ketones detection by automated test strip 1+ NEGATIVE Urine nitrite detection by test strip NEGATIVE NEGATIVE Urine total bilirubin detection by test strip NEGA TIVE NEGATIVE Urine urobilinogen measurement by automated test strip (mass/volume) NORMAL NORMAL Urine leukocyte esterase detection by dipstick 1+ NEGATIVE Automated urine sediment erythrocyte cou nt by microscopy (number/high power field) NONE NRG Automated urine sediment leukocyte count by microscopy (number/high power field) [HPF] NRG Bacteria detection in urine sediment by light microsco py TRACE NRG Squamous epithelial cells detection in u rine sediment by light microscopy 5-10 NRG Crystals detection in urine sediment by light microsco py NONE NRG Casts detection in urine sediment by light microscopy NONE NRG Mucus detection in urine sediment by light microscopy NEGATIVE NRG Complete urinalysis with reflex to culture NO NRG Complete blood count (CBC) with automate d white blood cell (WBC) differential - 05/06/17 19:10 Blood leukocytes automated count (number/volume) 14.7 10*3/uL 4.3-11.0 Blood erythrocytes automated count (number/volume) 4.51 10*6/uL 4.35-5.85 Venous blood hemoglobin measurement (mass/volume) 12.6 g/dL 11.5-16.0 Blood hematocrit (volume fraction) 39 % 35-52 Automated erythrocyte mean corpuscular volume 87 [ foz_us] 80-99 Automated erythrocyte mean corpuscular h emoglobin (mass per erythrocyte) 28 pg 25-34 Automated erythrocyte mean corpuscular h emoglobin concentration measurement (mass/volume) 32 g/dL 32-36 Automated erythrocyte distribution width ratio 14. 7 % 10.0- 14.5 Automated blood platelet count (count/volume) 236 10*3/uL 130-400 Automated blood platelet mean volume measurement 9.7 [foz_us] 7.4-10.4 Automated blood neutrophils/100 leukocytes 73 % 42-75 Automated blood lymphocytes/100 leukocytes 21 % 12-44 Blood monocytes/100 leukocytes 6 % 0-12 Automated blood eosinophils/100 leukocytes 1 % 0-10 Automated blood basophils/100 leukocytes 0 % 0-10 Blood neutrophils automated count (number/volume) 10.7 10*3 1.8-7.8 Blood lymphocytes automated count (number/volume) 3.0 10*3 1.0-4.0 Blood monocytes automated count (number/volume) 0. 9 10*3 0.0-1.0 Automated eosinophil count 0.1 10*3/uL 0 .0-0.3 Automated blood basophil count (count/volume) 0.0 10*3/uL 0.0-0.1 Blood manual differential performed dete ction - 05/06/17 19:10 Blood monocytes/100 leukocytes 3 % NRG Manual blood segmented neutrophils/100 leukocytes 58 % NRG Blood band neutrophils/100 leukocytes 2 % NRG Manual blood lymphocytes/100 leukocytes 36 % NRG Manual eosinophils/100 leukocytes in nose 0 % NRG Manual blood basophils/100 leukocytes 0 % NRG Blood erythrocyte morphology finding identification NORMAL NRG Manual blood metamyelocytes/100 leukocytes 1 % NRG Comprehensive metabolic panel - 05/06/17 19:10 Serum or plasma sodium measurement (moles/volume) 135 mmol/L 135-145 Serum or plasma potassium measurement (moles/volume) 4.3 mmol/L 3.6-5.0 Serum or plasma chloride measurement (moles/volume) 100 mmol/L 98-107 Carbon dioxide 24 mmol/L 21-32 Serum or plasma anion gap determination (moles/volume) 11 mmol/L 5-14 Serum or plasma urea nitrogen measurement (mass/volume ) 22 mg/dL 7-18 Serum or plasma creatinine measurement (mass/volume) 0.81 mg/dL 0.60-1.30 Serum or plasma urea nitrogen/creatinine mass ratio 27 NRG Serum or plasma creatinine measurement w ith calculation of estimated glomerular filtration rate > NRG Serum or plasma glucose measurement (mass/volume) 261 mg/dL 70-105 Serum or plasma calcium measurement (mass/volume) 10.1 mg/dL 8.5-10.1 Serum or plasma total bilirubin measurement (mass/volu me) 0.4 mg/dL 0.1-1.0 Serum or plasma alkaline phosphatase marty surement (enzymatic activity/volume) 64 U/L 40-136 Serum or plasma aspartate aminotransfera se measurement (enzymatic activity/volume) 14 U/L 5-34 Serum or plasma alanine aminotransferase measurement (enzymatic activity/volume) 32 U/L 0-55 Serum or plasma protein measurement (mass/volume) 7.0 g/dL 6.4-8.2 Serum or plasma albumin measurement (mass/volume) 3.9 g/dL 3.2-4.5 Magnesium - 05/06/17 19:10 Magnesium 1.7 mg/dL 1.8-2.4 Serum or plasma creatine kinase measurem ent (enzymatic activity/volume) - 05/06/17 19:10 Serum or plasma creatine kinase measurem ent (enzymatic activity/volume) 14 U/L 29-168 Serum or plasma thyrotropin measurement by detection limit <=0.05 miu/l (units/volume) - 05/06/17 19:10 Serum or plasma thyrotropin measurement by detection limit <=0.05 miu/l (units/volume) 2.00 u[iU]/mL 0.35-4.94 Erythrocyte sedimentation rate by salty gren method - 05/06/17 19:10 Erythrocyte sedimentation rate by westergren method 40 mm 0- 30 Serum or plasma C reactive protein measu rement (mass/volume) - 05/06/17 19:10 Serum or plasma C reactive protein measurement (mass/v olume) 14.05 mg/dL 0.00-0.50 Serum or plasma rheumatoid factor measur ement (units/volume) - 05/06/17 19:10 Serum or plasma rheumatoid factor measurement (units/v olume) NEGATIVE NEGATIVE Bacterial blood culture - 05/06/17 20:10 Bacterial blood culture NG NRG Blood lactic acid measurement (moles/vol ume) - 05/06/17 20:20 Blood lactic acid measurement (moles/volume) 1.70 mmol/L 0.50-2.00 Bacterial blood culture - 05/06/17 20:20 Bacterial blood culture NG NRG Gram stain microscopy - 05/06/17 22:07 GRAM STAIN RESULT NO WBC'S OR BACTERIA OBSERVED NRG Bacteria identification in wound by cult ure - 05/06/17 22:07 Bacteria identification in wound by culture SEE CO MMEN NRG QUANTITY OF GROWTH . NRG Complete blood count (CBC) with automate d white blood cell (WBC) differential - 05/07/17 06:00 Blood leukocytes automated count (number/volume) 8.9 10*3/uL 4.3-11.0 Blood erythrocytes automated count (number/volume) 4.09 10*6/uL 4.35-5.85 Venous blood hemoglobin measurement (mass/volume) 11.5 g/dL 11.5-16.0 Blood hematocrit (volume fraction) 36 % 35-52 Automated erythrocyte mean corpuscular volume 88 [ foz_us] 80-99 Automated erythrocyte mean corpuscular h emoglobin (mass per erythrocyte) 28 pg 25-34 Automated erythrocyte mean corpuscular h emoglobin concentration measurement (mass/volume) 32 g/dL 32-36 Automated erythrocyte distribution width ratio 14. 6 % 10.0- 14.5 Automated blood platelet count (count/volume) 207 10*3/uL 130-400 Automated blood platelet mean volume measurement 10.0 [foz_us] 7.4-10.4 Automated blood neutrophils/100 leukocytes 73 % 42-75 Automated blood lymphocytes/100 leukocytes 19 % 12-44 Blood monocytes/100 leukocytes 7 % 0-12 Automated blood eosinophils/100 leukocytes 1 % 0-10 Automated blood basophils/100 leukocytes 0 % 0-10 Blood neutrophils automated count (number/volume) 6.4 10*3 1.8-7.8 Blood lymphocytes automated count (number/volume) 1.7 10*3 1.0-4.0 Blood monocytes automated count (number/volume) 0. 7 10*3 0.0-1.0 Automated eosinophil count 0.1 10*3/uL 0 .0-0.3 Automated blood basophil count (count/volume) 0.0 10*3/uL 0.0-0.1 Erythrocyte sedimentation rate by salty gren method - 05/07/17 06:00 Erythrocyte sedimentation rate by westergren method 33 mm 0- 30 Comprehensive metabolic panel - 05/07/17 06:00 Serum or plasma sodium measurement (moles/volume) 137 mmol/L 135-145 Serum or plasma potassium measurement (moles/volume) 4.2 mmol/L 3.6-5.0 Serum or plasma chloride measurement (moles/volume) 101 mmol/L 98-107 Carbon dioxide 25 mmol/L 21-32 Serum or plasma anion gap determination (moles/volume) 11 mmol/L 5-14 Serum or plasma urea nitrogen measurement (mass/volume ) 16 mg/dL 7-18 Serum or plasma creatinine measurement (mass/volume) 0.71 mg/dL 0.60-1.30 Serum or plasma urea nitrogen/creatinine mass ratio 23 NRG Serum or plasma creatinine measurement w ith calculation of estimated glomerular filtration rate > NRG Serum or plasma glucose measurement (mass/volume) 268 mg/dL 70-105 Serum or plasma calcium measurement (mass/volume) 9.6 mg/dL 8.5-10.1 Serum or plasma total bilirubin measurement (mass/volu me) 0.4 mg/dL 0.1-1.0 Serum or plasma alkaline phosphatase marty surement (enzymatic activity/volume) 54 U/L 40-136 Serum or plasma aspartate aminotransfera se measurement (enzymatic activity/volume) 13 U/L 5-34 Serum or plasma alanine aminotransferase measurement (enzymatic activity/volume) 26 U/L 0-55 Serum or plasma protein measurement (mass/volume) 6.5 g/dL 6.4-8.2 Serum or plasma albumin measurement (mass/volume) 3.6 g/dL 3.2-4.5 Serum or plasma C reactive protein measu rement (mass/volume) - 05/07/17 06:00 Serum or plasma C reactive protein measurement (mass/v olume) 16.92 mg/dL 0.00-0.50 Hemoglobin A1c - 05/07/17 06:00 Hemoglobin A1c 9.0 % 4.5-6.2 Magnesium - 05/07/17 06:00 Magnesium 1.8 mg/dL 1.8-2.4 Complete blood count (CBC) with automate d white blood cell (WBC) differential - 05/08/17 05:57 Blood leukocytes automated count (number/volume) 6.7 10*3/uL 4.3-11.0 Blood erythrocytes automated count (number/volume) 4.01 10*6/uL 4.35-5.85 Venous blood hemoglobin measurement (mass/volume) 11.3 g/dL 11.5-16.0 Blood hematocrit (volume fraction) 35 % 35-52 Automated erythrocyte mean corpuscular volume 88 [ foz_us] 80-99 Automated erythrocyte mean corpuscular h emoglobin (mass per erythrocyte) 28 pg 25-34 Automated erythrocyte mean corpuscular h emoglobin concentration measurement (mass/volume) 32 g/dL 32-36 Automated erythrocyte distribution width ratio 14. 3 % 10.0- 14.5 Automated blood platelet count (count/volume) 189 10*3/uL 130-400 Automated blood platelet mean volume measurement 9.7 [foz_us] 7.4-10.4 Automated blood neutrophils/100 leukocytes 53 % 42-75 Automated blood lymphocytes/100 leukocytes 33 % 12-44 Blood monocytes/100 leukocytes 11 % 0-12 Automated blood eosinophils/100 leukocytes 3 % 0-10 Automated blood basophils/100 leukocytes 1 % 0-10 Blood neutrophils automated count (number/volume) 3.5 10*3 1.8-7.8 Blood lymphocytes automated count (number/volume) 2.2 10*3 1.0-4.0 Blood monocytes automated count (number/volume) 0. 8 10*3 0.0-1.0 Automated eosinophil count 0.2 10*3/uL 0 .0-0.3 Automated blood basophil count (count/volume) 0.0 10*3/uL 0.0-0.1 Erythrocyte sedimentation rate by salty gren method - 05/08/17 05:57 Erythrocyte sedimentation rate by westergren method 36 mm 0- 30 Comprehensive metabolic panel - 05/08/17 05:57 Serum or plasma sodium measurement (moles/volume) 137 mmol/L 135-145 Serum or plasma potassium measurement (moles/volume) 3.8 mmol/L 3.6-5.0 Serum or plasma chloride measurement (moles/volume) 103 mmol/L 98-107 Carbon dioxide 25 mmol/L 21-32 Serum or plasma anion gap determination (moles/volume) 9 mmol/L 5-14 Serum or plasma urea nitrogen measurement (mass/volume ) 16 mg/dL 7-18 Serum or plasma creatinine measurement (mass/volume) 0.68 mg/dL 0.60-1.30 Serum or plasma urea nitrogen/creatinine mass ratio 24 NRG Serum or plasma creatinine measurement w ith calculation of estimated glomerular filtration rate > NRG Serum or plasma glucose measurement (mass/volume) 237 mg/dL 70-105 Serum or plasma calcium measurement (mass/volume) 9.2 mg/dL 8.5-10.1 Serum or plasma total bilirubin measurement (mass/volu me) 0.2 mg/dL 0.1-1.0 Serum or plasma alkaline phosphatase marty surement (enzymatic activity/volume) 58 U/L 40-136 Serum or plasma aspartate aminotransfera se measurement (enzymatic activity/volume) 16 U/L 5-34 Serum or plasma alanine aminotransferase measurement (enzymatic activity/volume) 24 U/L 0-55 Serum or plasma protein measurement (mass/volume) 6.0 g/dL 6.4-8.2 Serum or plasma albumin measurement (mass/volume) 3.3 g/dL 3.2-4.5 Serum or plasma C reactive protein measu rement (mass/volume) - 05/08/17 05:57 Serum or plasma C reactive protein measurement (mass/v olume) 9.78 mg/dL 0.00-0.50 Vancomycin trough - 05/08/17 05:57 Vancomycin trough 13.1 ug/mL 10.0-20.0 Complete blood count (CBC) with automate d white blood cell (WBC) differential - 08/08/17 11:51 Blood leukocytes automated count (number/volume) 8.0 10*3/uL 4.3-11.0 Blood erythrocytes automated count (number/volume) 4.31 10*6/uL 4.35-5.85 Venous blood hemoglobin measurement (mass/volume) 12.1 g/dL 11.5-16.0 Blood hematocrit (volume fraction) 38 % 35-52 Automated erythrocyte mean corpuscular volume 87 [ foz_us] 80-99 Automated erythrocyte mean corpuscular h emoglobin (mass per erythrocyte) 28 pg 25-34 Automated erythrocyte mean corpuscular h emoglobin concentration measurement (mass/volume) 32 g/dL 32-36 Automated erythrocyte distribution width ratio 13. 7 % 10.0- 14.5 Automated blood platelet count (count/volume) 220 10*3/uL 130-400 Automated blood platelet mean volume measurement 9.6 [foz_us] 7.4-10.4 Automated blood neutrophils/100 leukocytes 65 % 42-75 Automated blood lymphocytes/100 leukocytes 24 % 12-44 Blood monocytes/100 leukocytes 8 % 0-12 Automated blood eosinophils/100 leukocytes 3 % 0-10 Automated blood basophils/100 leukocytes 0 % 0-10 Blood neutrophils automated count (number/volume) 5.2 10*3 1.8-7.8 Blood lymphocytes automated count (number/volume) 2.0 10*3 1.0-4.0 Blood monocytes automated count (number/volume) 0. 6 10*3 0.0-1.0 Automated eosinophil count 0.2 10*3/uL 0 .0-0.3 Automated blood basophil count (count/volume) 0.0 10*3/uL 0.0-0.1 Comprehensive metabolic panel - 08/08/17 11:51 Serum or plasma sodium measurement (moles/volume) 136 mmol/L 135-145 Serum or plasma potassium measurement (moles/volume) 4.3 mmol/L 3.6-5.0 Serum or plasma chloride measurement (moles/volume) 100 mmol/L 98-107 Carbon dioxide 24 mmol/L 21-32 Serum or plasma anion gap determination (moles/volume) 12 mmol/L 5-14 Serum or plasma urea nitrogen measurement (mass/volume ) 20 mg/dL 7-18 Serum or plasma creatinine measurement (mass/volume) 0.73 mg/dL 0.60-1.30 Serum or plasma urea nitrogen/creatinine mass ratio 27 NRG Serum or plasma creatinine measurement w ith calculation of estimated glomerular filtration rate > NRG Serum or plasma glucose measurement (mass/volume) 305 mg/dL 70-105 Serum or plasma calcium measurement (mass/volume) 9.3 mg/dL 8.5-10.1 Serum or plasma total bilirubin measurement (mass/volu me) 0.2 mg/dL 0.1-1.0 Serum or plasma alkaline phosphatase marty surement (enzymatic activity/volume) 70 U/L 40-136 Serum or plasma aspartate aminotransfera se measurement (enzymatic activity/volume) 17 U/L 5-34 Serum or plasma alanine aminotransferase measurement (enzymatic activity/volume) 32 U/L 0-55 Serum or plasma protein measurement (mass/volume) 7.4 g/dL 6.4-8.2 Serum or plasma albumin measurement (mass/volume) 3.9 g/dL 3.2-4.5 Blood lactic acid measurement (moles/vol ume) - 08/08/17 11:51 Blood lactic acid measurement (moles/volume) 2.83 mmol/L 0.50-2.00 PT panel in platelet poor plasma by coag ulation assay - 08/08/17 11:51 Prothrombin time (PT) in platelet poor plasma by coagu lation assay 12.1 s 12.2-14.7 INR in platelet poor plasma or blood by coagulation as say 0.9 0.8-1.4 Activated partial thromboplastin time (a PTT) in platelet poor plasma bycoagulation assay - 08/08/17 11:51 Activated partial thromboplastin time (a PTT) in platelet poor plasma bycoagulation assay 28 s 24-35 Bacterial blood culture - 08/08/17 13:15 Bacterial blood culture NG NRG Bacterial blood culture - 08/08/17 13:49 Bacterial blood culture NG NRG Complete urinalysis with reflex to cultu re - 08/08/17 14:19 Urine color determination YELLOW NRG Urine clarity determination CLEAR NR G Urine pH measurement by test strip 5 5-9 Specific gravity of urine by test strip 1.025 1.016-1.022 Urine protein assay by test strip, semi-quantitative 2+ NEGATIVE Urine glucose detection by automated test strip 3+ NEGATIVE Erythrocytes detection in urine sediment by light micr oscopy 1+ NEGATIVE Urine ketones detection by automated test strip NE GATIVE NEGATIVE Urine nitrite detection by test strip NEGATIVE NEGATIVE Urine total bilirubin detection by test strip NEGA TIVE NEGATIVE Urine urobilinogen measurement by automated test strip (mass/volume) NORMAL NORMAL Urine leukocyte esterase detection by dipstick NEG ATIVE NEGATIVE Automated urine sediment erythrocyte cou nt by microscopy (number/high power field) NONE NRG Automated urine sediment leukocyte count by microscopy (number/high power field) RARE NRG Bacteria detection in urine sediment by light microsco py FEW NRG Squamous epithelial cells detection in u rine sediment by light microscopy 5-10 NRG Crystals detection in urine sediment by light microsco py PRESENT NRG Casts detection in urine sediment by light microscopy NONE NRG Mucus detection in urine sediment by light microscopy NEGATIVE NRG Complete urinalysis with reflex to culture NO NRG Yeast detection in urine sediment by light microscopy FEW NRG Uric acid crystals detection in urine sediment by ligh t microscopy RARE NRG Serum or plasma lactate measurement (mol es/volume) - 08/08/17 14:50 Serum or plasma lactate measurement (moles/volume) 2.14 mmol/L 0.50-2.00 Complete blood count (CBC) with automate d white blood cell (WBC) differential - 12/04/17 19:45 Blood leukocytes automated count (number/volume) 7.5 10*3/uL 4.3-11.0 Blood erythrocytes automated count (number/volume) 4.37 10*6/uL 4.35-5.85 Venous blood hemoglobin measurement (mass/volume) 12.1 g/dL 11.5-16.0 Blood hematocrit (volume fraction) 37 % 35-52 Automated erythrocyte mean corpuscular volume 86 [ foz_us] 80-99 Automated erythrocyte mean corpuscular h emoglobin (mass per erythrocyte) 28 pg 25-34 Automated erythrocyte mean corpuscular h emoglobin concentration measurement (mass/volume) 32 g/dL 32-36 Automated erythrocyte distribution width ratio 14. 3 % 10.0- 14.5 Automated blood platelet count (count/volume) 212 10*3/uL 130-400 Automated blood platelet mean volume measurement 9.4 [foz_us] 7.4-10.4 Automated blood neutrophils/100 leukocytes 64 % 42-75 Automated blood lymphocytes/100 leukocytes 25 % 12-44 Blood monocytes/100 leukocytes 9 % 0-12 Automated blood eosinophils/100 leukocytes 3 % 0-10 Automated blood basophils/100 leukocytes 0 % 0-10 Blood neutrophils automated count (number/volume) 4.8 10*3 1.8-7.8 Blood lymphocytes automated count (number/volume) 1.8 10*3 1.0-4.0 Blood monocytes automated count (number/volume) 0. 7 10*3 0.0-1.0 Automated eosinophil count 0.2 10*3/uL 0 .0-0.3 Automated blood basophil count (count/volume) 0.0 10*3/uL 0.0-0.1 PT panel in platelet poor plasma by coag ulation assay - 12/04/17 19:45 Prothrombin time (PT) in platelet poor plasma by coagu lation assay 12.9 s 12.2-14.7 INR in platelet poor plasma or blood by coagulation as say 1.0 0.8-1.4 Activated partial thromboplastin time (a PTT) in platelet poor plasma bycoagulation assay - 12/04/17 19:45 Activated partial thromboplastin time (a PTT) in platelet poor plasma bycoagulation assay 27 s 24-35 Fibrin D-dimer FEU measurement in platel et poor plasma (mass/volume) - 12/04/17 19:45 Fibrin D-dimer FEU measurement in platelet poor plasma (mass/volume) < ug/mL 0.00-0.49 Comprehensive metabolic panel - 12/04/17 19:45 Serum or plasma sodium measurement (moles/volume) 137 mmol/L 135-145 Serum or plasma potassium measurement (moles/volume) 4.2 mmol/L 3.6-5.0 Serum or plasma chloride measurement (moles/volume) 101 mmol/L 98-107 Carbon dioxide 25 mmol/L 21-32 Serum or plasma anion gap determination (moles/volume) 11 mmol/L 5-14 Serum or plasma urea nitrogen measurement (mass/volume ) 16 mg/dL 7-18 Serum or plasma creatinine measurement (mass/volume) 0.76 mg/dL 0.60-1.30 Serum or plasma urea nitrogen/creatinine mass ratio 21 NRG Serum or plasma creatinine measurement w ith calculation of estimated glomerular filtration rate > NRG Serum or plasma glucose measurement (mass/volume) 291 mg/dL 70-105 Serum or plasma calcium measurement (mass/volume) 9.2 mg/dL 8.5-10.1 Serum or plasma total bilirubin measurement (mass/volu me) 0.3 mg/dL 0.1-1.0 Serum or plasma alkaline phosphatase marty surement (enzymatic activity/volume) 73 U/L 40-136 Serum or plasma aspartate aminotransfera se measurement (enzymatic activity/volume) 27 U/L 5-34 Serum or plasma alanine aminotransferase measurement (enzymatic activity/volume) 49 U/L 0-55 Serum or plasma protein measurement (mass/volume) 7.1 g/dL 6.4-8.2 Serum or plasma albumin measurement (mass/volume) 4.1 g/dL 3.2-4.5 Serum or plasma thyrotropin measurement by detection limit <=0.05 miu/l (units/volume) - 12/04/17 19:45 Serum or plasma thyrotropin measurement by detection limit <=0.05 miu/l (units/volume) 0.96 u[iU]/mL 0.35-4.94 Serum or plasma troponin i.cardiac measu rement (mass/volume) - 12/04/17 19:45 Serum or plasma troponin i.cardiac measurement (mass/v olume) < ng/mL <0.30 Complete urinalysis with reflex to cultu re - 12/04/17 20:15 Urine color determination YELLOW NRG Urine clarity determination CLEAR NR G Urine pH measurement by test strip 6.5 5-9 Specific gravity of urine by test strip 1.015 1.016-1.022 Urine protein assay by test strip, semi-quantitative 1+ NEGATIVE Urine glucose detection by automated test strip 4+ NEGATIVE Erythrocytes detection in urine sediment by light micr oscopy 1+ NEGATIVE Urine ketones detection by automated test strip 2+ NEGATIVE Urine nitrite detection by test strip NEGATIVE NEGATIVE Urine total bilirubin detection by test strip NEGA TIVE NEGATIVE Urine urobilinogen measurement by automated test strip (mass/volume) NORMAL NORMAL Urine leukocyte esterase detection by dipstick 1+ NEGATIVE Automated urine sediment erythrocyte cou nt by microscopy (number/high power field) [HPF] NRG Automated urine sediment leukocyte count by microscopy (number/high power field) [HPF] NRG Bacteria detection in urine sediment by light microsco py MODERATE NRG Squamous epithelial cells detection in u rine sediment by light microscopy 2-5 NRG Crystals detection in urine sediment by light microsco py NONE NRG Casts detection in urine sediment by light microscopy NONE NRG Mucus detection in urine sediment by light microscopy NEGATIVE NRG Complete urinalysis with reflex to culture YES NRG Bacterial urine culture - 12/04/17 20:15 Bacterial urine culture [id number] NRG COLONY COUNT 10,000/ML - 100,000/ML NRG FTX;REPORTABLE SENSITIVITY REPORTED 12/06/17 7:55 NRG Bacterial susceptibility panel - 8 20:15 Gentamicin susceptibility test by minimum inhibitory c oncentration S NRG Vancomycin susceptibility test by minimum inhibitory c oncentration 1 NRG Levofloxacin susceptibility test by minimum inhibitory concentration 0.5 NRG Tetracycline susceptibility test by minimum inhibitory concentration >= NRG Ampicillin susceptibility test by minimum inhibitory c oncentration <= NRG Nitrofurantoin susceptibility test by mi nimum inhibitory concentration <= NRG Linezolid susceptibility test by minimum inhibitory co ncentration 2 NRG Methicillin resistant Staphylococcus aur eus (MRSA) screening culture - 12/05/17 00:55 Methicillin resistant Staphylococcus aureus (MRSA) scr eening culture NEG NRG Capillary blood glucose measurement by g lucometer (mass/volume) - 12/05/17 11:18 Capillary blood glucose measurement by glucometer (mas s/volume) 232 mg/dL 70-110 Capillary blood glucose measurement by g lucometer (mass/volume) - 12/05/17 21:19 Capillary blood glucose measurement by glucometer (mas s/volume) 333 mg/dL 70-110 Capillary blood glucose measurement by g lucometer (mass/volume) - 12/06/17 16:04 Capillary blood glucose measurement by glucometer (mas s/volume) 305 mg/dL 70-110 Capillary blood glucose measurement by g lucometer (mass/volume) - 12/06/17 20:04 Capillary blood glucose measurement by glucometer (mas s/volume) 265 mg/dL 70-110 Capillary blood glucose measurement by g lucometer (mass/volume) - 12/07/17 05:33 Capillary blood glucose measurement by glucometer (mas s/volume) 332 mg/dL 70-110 Capillary blood glucose measurement by g lucometer (mass/volume) - 12/07/17 11:33 Capillary blood glucose measurement by glucometer (mas s/volume) 264 mg/dL 70-110 Capillary blood glucose measurement by g lucometer (mass/volume) - 12/07/17 16:10 Capillary blood glucose measurement by glucometer (mas s/volume) 336 mg/dL 70-110 Capillary blood glucose measurement by g lucometer (mass/volume) - 12/07/17 20:32 Capillary blood glucose measurement by glucometer (mas s/volume) 258 mg/dL 70-110 Automated blood complete blood count (he mogram) panel - 12/08/17 05:30 Blood leukocytes automated count (number/volume) 9.1 10*3/uL 4.3-11.0 Blood erythrocytes automated count (number/volume) 4.35 10*6/uL 4.35-5.85 Venous blood hemoglobin measurement (mass/volume) 12.0 g/dL 11.5-16.0 Blood hematocrit (volume fraction) 37 % 35-52 Automated erythrocyte mean corpuscular volume 85 [ foz_us] 80-99 Automated erythrocyte mean corpuscular h emoglobin (mass per erythrocyte) 28 pg 25-34 Automated erythrocyte mean corpuscular h emoglobin concentration measurement (mass/volume) 32 g/dL 32-36 Automated erythrocyte distribution width ratio 14. 4 % 10.0- 14.5 Automated blood platelet count (count/volume) 226 10*3/uL 130-400 Automated blood platelet mean volume measurement 10.1 [foz_us] 7.4-10.4 Comprehensive metabolic panel - 12/08/17 05:30 Serum or plasma sodium measurement (moles/volume) 135 mmol/L 135-145 Serum or plasma potassium measurement (moles/volume) 4.1 mmol/L 3.6-5.0 Serum or plasma chloride measurement (moles/volume) 102 mmol/L 98-107 Carbon dioxide 24 mmol/L 21-32 Serum or plasma anion gap determination (moles/volume) 9 mmol/L 5-14 Serum or plasma urea nitrogen measurement (mass/volume ) 18 mg/dL 7-18 Serum or plasma creatinine measurement (mass/volume) 0.77 mg/dL 0.60-1.30 Serum or plasma urea nitrogen/creatinine mass ratio 23 NRG Serum or plasma creatinine measurement w ith calculation of estimated glomerular filtration rate > NRG Serum or plasma glucose measurement (mass/volume) 373 mg/dL 70-105 Serum or plasma calcium measurement (mass/volume) 9.1 mg/dL 8.5-10.1 Serum or plasma total bilirubin measurement (mass/volu me) 0.3 mg/dL 0.1-1.0 Serum or plasma alkaline phosphatase marty surement (enzymatic activity/volume) 67 U/L 40-136 Serum or plasma aspartate aminotransfera se measurement (enzymatic activity/volume) 26 U/L 5-34 Serum or plasma alanine aminotransferase measurement (enzymatic activity/volume) 50 U/L 0-55 Serum or plasma protein measurement (mass/volume) 6.5 g/dL 6.4-8.2 Serum or plasma albumin measurement (mass/volume) 3.7 g/dL 3.2-4.5 Magnesium - 12/08/17 05:30 Magnesium 2.2 mg/dL 1.8-2.4 Lipid 1996 panel - 12/08/17 05:30 Serum or plasma triglyceride measurement (mass/volume) 121 mg/dL <150 Serum or plasma cholesterol measurement (mass/volume) 179 mg/dL < 200 Serum or plasma cholesterol in HDL measurement (mass/v olume) 37 mg/dL 40-60 Cholesterol in LDL [mass/volume] in serum or plasma by direct assay 117 mg/dL 1-129 Serum or plasma cholesterol in VLDL measurement (mass/ volume) 24 mg/dL 5-40 Hemoglobin A1c - 12/08/17 05:30 Blood hemoglobin A1C measurement (mass/volume) 9.9 % 4.0-5.6 MEAN BLOOD GLUCOSE 237 % <=126 Capillary blood glucose measurement by g lucometer (mass/volume) - 12/08/17 05:33 Capillary blood glucose measurement by glucometer (mas s/volume) 346 mg/dL 70-110 Capillary blood glucose measurement by g lucometer (mass/volume) - 12/08/17 11:08 Capillary blood glucose measurement by glucometer (mas s/volume) 325 mg/dL 70-110 Methicillin resistant Staphylococcus aur eus (MRSA) screening culture - 02/04/18 10:35 Methicillin resistant Staphylococcus aureus (MRSA) scr eening culture NEG NRG Capillary blood glucose measurement by g lucometer (mass/volume) - 02/12/18 11:25 Capillary blood glucose measurement by glucometer (mas s/volume) 132 mg/dL 70-110 Capillary blood glucose measurement by g lucometer (mass/volume) - 02/12/18 13:43 Capillary blood glucose measurement by glucometer (mas s/volume) 95 mg/dL 70-110 Automated blood complete blood count (he mogram) panel - 03/23/18 07:44 Blood leukocytes automated count (number/volume) 10.3 10*3/uL 4.3-11.0 Blood erythrocytes automated count (number/volume) 4.29 10*6/uL 4.35-5.85 Venous blood hemoglobin measurement (mass/volume) 11.8 g/dL 11.5-16.0 Blood hematocrit (volume fraction) 37 % 35-52 Automated erythrocyte mean corpuscular volume 85 [ foz_us] 80-99 Automated erythrocyte mean corpuscular h emoglobin (mass per erythrocyte) 28 pg 25-34 Automated erythrocyte mean corpuscular h emoglobin concentration measurement (mass/volume) 32 g/dL 32-36 Automated erythrocyte distribution width ratio 15. 1 % 10.0- 14.5 Automated blood platelet count (count/volume) 246 10*3/uL 130-400 Automated blood platelet mean volume measurement 10.0 [foz_us] 7.4-10.4 PT panel in platelet poor plasma by coag ulation assay - 03/23/18 07:44 Prothrombin time (PT) in platelet poor plasma by coagu lation assay 13.2 s 12.2-14.7 INR in platelet poor plasma or blood by coagulation as say 1.0 0.8-1.4 Activated partial thromboplastin time (a PTT) in platelet poor plasma bycoagulation assay - 03/23/18 07:44 Activated partial thromboplastin time (a PTT) in platelet poor plasma bycoagulation assay 28 s 24-35 Comprehensive metabolic panel - 03/23/18 07:44 Serum or plasma sodium measurement (moles/volume) 138 mmol/L 135-145 Serum or plasma potassium measurement (moles/volume) 4.4 mmol/L 3.6-5.0 Serum or plasma chloride measurement (moles/volume) 103 mmol/L 98-107 Carbon dioxide 25 mmol/L 21-32 Serum or plasma anion gap determination (moles/volume) 10 mmol/L 5-14 Serum or plasma urea nitrogen measurement (mass/volume ) 22 mg/dL 7-18 Serum or plasma creatinine measurement (mass/volume) 0.77 mg/dL 0.60-1.30 Serum or plasma urea nitrogen/creatinine mass ratio 29 NRG Serum or plasma creatinine measurement w ith calculation of estimated glomerular filtration rate > NRG Serum or plasma glucose measurement (mass/volume) 240 mg/dL 70-105 Serum or plasma calcium measurement (mass/volume) 9.7 mg/dL 8.5-10.1 Serum or plasma total bilirubin measurement (mass/volu me) 0.5 mg/dL 0.1-1.0 Serum or plasma alkaline phosphatase marty surement (enzymatic activity/volume) 59 U/L 40-136 Serum or plasma aspartate aminotransfera se measurement (enzymatic activity/volume) 29 U/L 5-34 Serum or plasma alanine aminotransferase measurement (enzymatic activity/volume) 45 U/L 0-55 Serum or plasma protein measurement (mass/volume) 6.9 g/dL 6.4-8.2 Serum or plasma albumin measurement (mass/volume) 4.0 g/dL 3.2-4.5 Lipid 1996 panel - 03/23/18 07:44 Serum or plasma triglyceride measurement (mass/volume) 187 mg/dL <150 Serum or plasma cholesterol measurement (mass/volume) 175 mg/dL < 200 Serum or plasma cholesterol in HDL measurement (mass/v olume) 35 mg/dL 40-60 Cholesterol in LDL [mass/volume] in serum or plasma by direct assay 112 mg/dL 1-129 Serum or plasma cholesterol in VLDL measurement (mass/ volume) 37 mg/dL 5-40 Methicillin resistant Staphylococcus aur eus (MRSA) screening culture - 03/23/18 07:47 Methicillin resistant Staphylococcus aureus (MRSA) scr eening culture NEG NRG Capillary blood glucose measurement by g lucometer (mass/volume) - 03/23/18 20:19 Capillary blood glucose measurement by glucometer (mas s/volume) 312 mg/dL 70-110 Automated blood complete blood count (he mogram) panel - 03/24/18 03:10 Blood leukocytes automated count (number/volume) 8.2 10*3/uL 4.3-11.0 Blood erythrocytes automated count (number/volume) 3.99 10*6/uL 4.35-5.85 Venous blood hemoglobin measurement (mass/volume) 10.9 g/dL 11.5-16.0 Blood hematocrit (volume fraction) 34 % 35-52 Automated erythrocyte mean corpuscular volume 86 [ foz_us] 80-99 Automated erythrocyte mean corpuscular h emoglobin (mass per erythrocyte) 27 pg 25-34 Automated erythrocyte mean corpuscular h emoglobin concentration measurement (mass/volume) 32 g/dL 32-36 Automated erythrocyte distribution width ratio 15. 4 % 10.0- 14.5 Automated blood platelet count (count/volume) 234 10*3/uL 130-400 Automated blood platelet mean volume measurement 10.0 [foz_us] 7.4-10.4 Comprehensive metabolic panel - 03/24/18 03:10 Serum or plasma sodium measurement (moles/volume) 137 mmol/L 135-145 Serum or plasma potassium measurement (moles/volume) 4.4 mmol/L 3.6-5.0 Serum or plasma chloride measurement (moles/volume) 103 mmol/L 98-107 Carbon dioxide 25 mmol/L 21-32 Serum or plasma anion gap determination (moles/volume) 9 mmol/L 5-14 Serum or plasma urea nitrogen measurement (mass/volume ) 21 mg/dL 7-18 Serum or plasma creatinine measurement (mass/volume) 0.84 mg/dL 0.60-1.30 Serum or plasma urea nitrogen/creatinine mass ratio 25 NRG Serum or plasma creatinine measurement w ith calculation of estimated glomerular filtration rate > NRG Serum or plasma glucose measurement (mass/volume) 278 mg/dL 70-105 Serum or plasma calcium measurement (mass/volume) 9.3 mg/dL 8.5-10.1 Serum or plasma total bilirubin measurement (mass/volu me) 0.4 mg/dL 0.1-1.0 Serum or plasma alkaline phosphatase marty surement (enzymatic activity/volume) 61 U/L 40-136 Serum or plasma aspartate aminotransfera se measurement (enzymatic activity/volume) 27 U/L 5-34 Serum or plasma alanine aminotransferase measurement (enzymatic activity/volume) 46 U/L 0-55 Serum or plasma protein measurement (mass/volume) 6.3 g/dL 6.4-8.2 Serum or plasma albumin measurement (mass/volume) 3.7 g/dL 3.2-4.5 Lipid 1996 panel - 03/24/18 03:10 Serum or plasma triglyceride measurement (mass/volume) 186 mg/dL <150 Serum or plasma cholesterol measurement (mass/volume) 155 mg/dL < 200 Serum or plasma cholesterol in HDL measurement (mass/v olume) 28 mg/dL 40-60 Cholesterol in LDL [mass/volume] in serum or plasma by direct assay 86 mg/dL 1-129 Serum or plasma cholesterol in VLDL measurement (mass/ volume) 37 mg/dL 5-40 Capillary blood glucose measurement by g lucometer (mass/volume) - 03/24/18 11:20 Capillary blood glucose measurement by glucometer (mas s/volume) 346 mg/dL 70-110 Complete urinalysis with reflex to cultu re - 10/15/18 12:40 Urine color determination YELLOW NRG Urine clarity determination CLEAR NR G Urine pH measurement by test strip 5 5-9 Specific gravity of urine by test strip 1.015 1.016-1.022 Urine protein assay by test strip, semi-quantitative 1+ NEGATIVE Urine glucose detection by automated test strip NE GATIVE NEGATIVE Erythrocytes detection in urine sediment by light micr oscopy NEGATIVE NEGATIVE Urine ketones detection by automated test strip NE GATIVE NEGATIVE Urine nitrite detection by test strip POSITIVE NEGATIVE Urine total bilirubin detection by test strip NEGA TIVE NEGATIVE Urine urobilinogen measurement by automated test strip (mass/volume) NORMAL NORMAL Urine leukocyte esterase detection by dipstick 3+ NEGATIVE Automated urine sediment erythrocyte cou nt by microscopy (number/high power field) NONE NRG Automated urine sediment leukocyte count by microscopy (number/high power field) [HPF] NRG Bacteria detection in urine sediment by light microsco py LARGE NRG Squamous epithelial cells detection in u rine sediment by light microscopy 5-10 NRG Crystals detection in urine sediment by light microsco py NONE NRG Casts detection in urine sediment by light microscopy NONE NRG Mucus detection in urine sediment by light microscopy NEGATIVE NRG Complete urinalysis with reflex to culture YES NRG Bacterial urine culture - 10/15/18 12:40 Bacterial urine culture [id number] NRG COLONY COUNT >100,000/ML NRG FTX;REPORTABLE ID REPORTED 10/16/18 14:05 NRG FREE TEXT ENTRY 2 SENSITIVITY REPORTED 10/17/18 13:0 5 NRG RML Sensitivity Panel - 10/15/18 12:40 Gentamicin susceptibility test by minimum inhibitory c oncentration <= NRG Trimethoprim/sulfamethoxazole susceptibi lity test by minimum inhibitoryconcentration > NRG Levofloxacin susceptibility test by minimum inhibitory concentration <= NRG Ampicillin susceptibility test by minimum inhibitory c oncentration > NRG Cefazolin susceptibility test by minimum inhibitory co ncentration 2 NRG Ceftriaxone susceptibility test by minimum inhibitory concentration <= NRG Ciprofloxacin susceptibility test by minimum inhibitor y concentration <= NRG Meropenem susceptibility test by minimum inhibitory co ncentration <= NRG Nitrofurantoin susceptibility test by mi nimum inhibitory concentration <= NRG Amoxicillin and clavulanate potassium susc CORDELL = NRG Complete blood count (CBC) with automate d white blood cell (WBC) differential - 11/10/18 11:02 Blood leukocytes automated count (number/volume) 5.0 10*3/uL 4.3-11.0 Blood erythrocytes automated count (number/volume) 3.99 10*6/uL 4.35-5.85 Venous blood hemoglobin measurement (mass/volume) 10.6 g/dL 11.5-16.0 Blood hematocrit (volume fraction) 34 % 35-52 Automated erythrocyte mean corpuscular volume 86 [ foz_us] 80-99 Automated erythrocyte mean corpuscular h emoglobin (mass per erythrocyte) 27 pg 25-34 Automated erythrocyte mean corpuscular h emoglobin concentration measurement (mass/volume) 31 g/dL 32-36 Automated erythrocyte distribution width ratio 14. 9 % 10.0- 14.5 Automated blood platelet count (count/volume) 187 10*3/uL 130-400 Automated blood platelet mean volume measurement 10.0 [foz_us] 7.4-10.4 Automated blood neutrophils/100 leukocytes 62 % 42-75 Automated blood lymphocytes/100 leukocytes 23 % 12-44 Blood monocytes/100 leukocytes 14 % 0-12 Automated blood eosinophils/100 leukocytes 0 % 0-10 Automated blood basophils/100 leukocytes 0 % 0-10 Blood neutrophils automated count (number/volume) 3.1 10*3 1.8-7.8 Blood lymphocytes automated count (number/volume) 1.2 10*3 1.0-4.0 Blood monocytes automated count (number/volume) 0. 7 10*3 0.0-1.0 Automated eosinophil count 0.0 10*3/uL 0 .0-0.3 Automated blood basophil count (count/volume) 0.0 10*3/uL 0.0-0.1 Complete blood count (CBC) with automate d white blood cell (WBC) differential - 11/10/18 17:39 Blood leukocytes automated count (number/volume) 4.0 10*3/uL 4.3-11.0 Blood erythrocytes automated count (number/volume) 4.01 10*6/uL 4.35-5.85 Venous blood hemoglobin measurement (mass/volume) 10.7 g/dL 11.5-16.0 Blood hematocrit (volume fraction) 35 % 35-52 Automated erythrocyte mean corpuscular volume 87 [ foz_us] 80-99 Automated erythrocyte mean corpuscular h emoglobin (mass per erythrocyte) 27 pg 25-34 Automated erythrocyte mean corpuscular h emoglobin concentration measurement (mass/volume) 31 g/dL 32-36 Automated erythrocyte distribution width ratio 15. 2 % 10.0- 14.5 Automated blood platelet count (count/volume) 212 10*3/uL 130-400 Automated blood platelet mean volume measurement 10.2 [foz_us] 7.4-10.4 Automated blood neutrophils/100 leukocytes 55 % 42-75 Automated blood lymphocytes/100 leukocytes 29 % 12-44 Blood monocytes/100 leukocytes 16 % 0-12 Automated blood eosinophils/100 leukocytes 0 % 0-10 Automated blood basophils/100 leukocytes 0 % 0-10 Blood neutrophils automated count (number/volume) 2.2 10*3 1.8-7.8 Blood lymphocytes automated count (number/volume) 1.2 10*3 1.0-4.0 Blood monocytes automated count (number/volume) 0. 6 10*3 0.0-1.0 Automated eosinophil count 0.0 10*3/uL 0 .0-0.3 Automated blood basophil count (count/volume) 0.0 10*3/uL 0.0-0.1 Comprehensive metabolic panel - 11/10/18 17:39 Serum or plasma sodium measurement (moles/volume) 137 mmol/L 135-145 Serum or plasma potassium measurement (moles/volume) 3.4 mmol/L 3.6-5.0 Serum or plasma chloride measurement (moles/volume) 100 mmol/L 98-107 Carbon dioxide 23 mmol/L 21-32 Serum or plasma anion gap determination (moles/volume) 14 mmol/L 5-14 Serum or plasma urea nitrogen measurement (mass/volume ) 17 mg/dL 7-18 Serum or plasma creatinine measurement (mass/volume) 0.76 mg/dL 0.60-1.30 Serum or plasma urea nitrogen/creatinine mass ratio 22 NRG Serum or plasma creatinine measurement w ith calculation of estimated glomerular filtration rate > NRG Serum or plasma glucose measurement (mass/volume) 141 mg/dL 70-105 Serum or plasma calcium measurement (mass/volume) 9.3 mg/dL 8.5-10.1 Serum or plasma total bilirubin measurement (mass/volu me) 0.3 mg/dL 0.1-1.0 Serum or plasma alkaline phosphatase marty surement (enzymatic activity/volume) 61 U/L 40-136 Serum or plasma aspartate aminotransfera se measurement (enzymatic activity/volume) 28 U/L 5-34 Serum or plasma alanine aminotransferase measurement (enzymatic activity/volume) 20 U/L 0-55 Serum or plasma protein measurement (mass/volume) 6.7 g/dL 6.4-8.2 Serum or plasma albumin measurement (mass/volume) 3.7 g/dL 3.2-4.5 CALCIUM CORRECTED 9.5 mg/dL 8.5-10.1 Capillary blood glucose measurement by g lucometer (mass/volume) - 11/11/18 05:32 Capillary blood glucose measurement by glucometer (mas s/volume) 47 mg/dL 70-110 Capillary blood glucose measurement by g lucometer (mass/volume) - 11/11/18 06:31 Capillary blood glucose measurement by glucometer (mas s/volume) 146 mg/dL 70-110 Complete blood count (CBC) with automate d white blood cell (WBC) differential - 11/11/18 06:53 Blood leukocytes automated count (number/volume) 4.8 10*3/uL 4.3-11.0 Blood erythrocytes automated count (number/volume) 3.75 10*6/uL 4.35-5.85 Venous blood hemoglobin measurement (mass/volume) 10.0 g/dL 11.5-16.0 Blood hematocrit (volume fraction) 32 % 35-52 Automated erythrocyte mean corpuscular volume 86 [ foz_us] 80-99 Automated erythrocyte mean corpuscular h emoglobin (mass per erythrocyte) 27 pg 25-34 Automated erythrocyte mean corpuscular h emoglobin concentration measurement (mass/volume) 31 g/dL 32-36 Automated erythrocyte distribution width ratio 15. 4 % 10.0- 14.5 Automated blood platelet count (count/volume) 202 10*3/uL 130-400 Automated blood platelet mean volume measurement 9.8 [foz_us] 7.4-10.4 Automated blood neutrophils/100 leukocytes 50 % 42-75 Automated blood lymphocytes/100 leukocytes 36 % 12-44 Blood monocytes/100 leukocytes 14 % 0-12 Automated blood eosinophils/100 leukocytes 0 % 0-10 Automated blood basophils/100 leukocytes 0 % 0-10 Blood neutrophils automated count (number/volume) 2.4 10*3 1.8-7.8 Blood lymphocytes automated count (number/volume) 1.7 10*3 1.0-4.0 Blood monocytes automated count (number/volume) 0. 7 10*3 0.0-1.0 Automated eosinophil count 0.0 10*3/uL 0 .0-0.3 Automated blood basophil count (count/volume) 0.0 10*3/uL 0.0-0.1 Comprehensive metabolic panel - 11/11/18 06:53 Serum or plasma sodium measurement (moles/volume) 138 mmol/L 135-145 Serum or plasma potassium measurement (moles/volume) 3.1 mmol/L 3.6-5.0 Serum or plasma chloride measurement (moles/volume) 104 mmol/L 98-107 Carbon dioxide 23 mmol/L 21-32 Serum or plasma anion gap determination (moles/volume) 11 mmol/L 5-14 Serum or plasma urea nitrogen measurement (mass/volume ) 14 mg/dL 7-18 Serum or plasma creatinine measurement (mass/volume) 0.72 mg/dL 0.60-1.30 Serum or plasma urea nitrogen/creatinine mass ratio 19 NRG Serum or plasma creatinine measurement w ith calculation of estimated glomerular filtration rate > NRG Serum or plasma glucose measurement (mass/volume) 152 mg/dL 70-105 Serum or plasma calcium measurement (mass/volume) 8.7 mg/dL 8.5-10.1 Serum or plasma total bilirubin measurement (mass/volu me) 0.2 mg/dL 0.1-1.0 Serum or plasma alkaline phosphatase marty surement (enzymatic activity/volume) 57 U/L 40-136 Serum or plasma aspartate aminotransfera se measurement (enzymatic activity/volume) 30 U/L 5-34 Serum or plasma alanine aminotransferase measurement (enzymatic activity/volume) 19 U/L 0-55 Serum or plasma protein measurement (mass/volume) 6.3 g/dL 6.4-8.2 Serum or plasma albumin measurement (mass/volume) 3.4 g/dL 3.2-4.5 CALCIUM CORRECTED 9.2 mg/dL 8.5-10.1 THYROID STIMULATING HORMONE - 11/11/18 0 6:53 THYROID STIMULATING HORMONE 1.41 u[iU]/mL 0.35-4.94 Capillary blood glucose measurement by g lucometer (mass/volume) - 11/11/18 11:02 Capillary blood glucose measurement by glucometer (mas s/volume) 275 mg/dL 70-110 Capillary blood glucose measurement by g lucometer (mass/volume) - 11/11/18 16:17 Capillary blood glucose measurement by glucometer (mas s/volume) 301 mg/dL 70-110 Capillary blood glucose measurement by g lucometer (mass/volume) - 11/11/18 21:19 Capillary blood glucose measurement by glucometer (mas s/volume) 299 mg/dL 70-110 Capillary blood glucose measurement by g lucometer (mass/volume) - 11/12/18 05:22 Capillary blood glucose measurement by glucometer (mas s/volume) 129 mg/dL 70-110 Complete blood count (CBC) with automate d white blood cell (WBC) differential - 11/12/18 06:31 Blood leukocytes automated count (number/volume) 4.9 10*3/uL 4.3-11.0 Blood erythrocytes automated count (number/volume) 3.79 10*6/uL 4.35-5.85 Venous blood hemoglobin measurement (mass/volume) 10.0 g/dL 11.5-16.0 Blood hematocrit (volume fraction) 33 % 35-52 Automated erythrocyte mean corpuscular volume 87 [ foz_us] 80-99 Automated erythrocyte mean corpuscular h emoglobin (mass per erythrocyte) 26 pg 25-34 Automated erythrocyte mean corpuscular h emoglobin concentration measurement (mass/volume) 30 g/dL 32-36 Automated erythrocyte distribution width ratio 15. 2 % 10.0- 14.5 Automated blood platelet count (count/volume) 208 10*3/uL 130-400 Automated blood platelet mean volume measurement 9.7 [foz_us] 7.4-10.4 Automated blood neutrophils/100 leukocytes 46 % 42-75 Automated blood lymphocytes/100 leukocytes 42 % 12-44 Blood monocytes/100 leukocytes 10 % 0-12 Automated blood eosinophils/100 leukocytes 2 % 0-10 Automated blood basophils/100 leukocytes 1 % 0-10 Blood neutrophils automated count (number/volume) 2.2 10*3 1.8-7.8 Blood lymphocytes automated count (number/volume) 2.1 10*3 1.0-4.0 Blood monocytes automated count (number/volume) 0. 5 10*3 0.0-1.0 Automated eosinophil count 0.1 10*3/uL 0 .0-0.3 Automated blood basophil count (count/volume) 0.0 10*3/uL 0.0-0.1 Whole blood basic metabolic panel - 10/02 06:31 Serum or plasma sodium measurement (moles/volume) 140 mmol/L 135-145 Serum or plasma potassium measurement (moles/volume) 3.6 mmol/L 3.6-5.0 Serum or plasma chloride measurement (moles/volume) 105 mmol/L 98-107 Carbon dioxide 24 mmol/L 21-32 Serum or plasma anion gap determination (moles/volume) 11 mmol/L 5-14 Serum or plasma urea nitrogen measurement (mass/volume ) 11 mg/dL 7-18 Serum or plasma creatinine measurement (mass/volume) 0.67 mg/dL 0.60-1.30 Serum or plasma urea nitrogen/creatinine mass ratio 16 NRG Serum or plasma creatinine measurement w ith calculation of estimated glomerular filtration rate > NRG Serum or plasma glucose measurement (mass/volume) 136 mg/dL 70-105 Serum or plasma calcium measurement (mass/volume) 9.0 mg/dL 8.5-10.1 Capillary blood glucose measurement by g lucometer (mass/volume) - 11/12/18 11:37 Capillary blood glucose measurement by glucometer (mas s/volume) 187 mg/dL 70-110 Complete blood count (CBC) with automate d white blood cell (WBC) differential - 12/01/18 17:47 Blood leukocytes automated count (number/volume) 10.0 10*3/uL 4.3-11.0 Blood erythrocytes automated count (number/volume) 4.42 10*6/uL 4.35-5.85 Venous blood hemoglobin measurement (mass/volume) 11.9 g/dL 11.5-16.0 Blood hematocrit (volume fraction) 39 % 35-52 Automated erythrocyte mean corpuscular volume 87 [ foz_us] 80-99 Automated erythrocyte mean corpuscular h emoglobin (mass per erythrocyte) 27 pg 25-34 Automated erythrocyte mean corpuscular h emoglobin concentration measurement (mass/volume) 31 g/dL 32-36 Automated erythrocyte distribution width ratio 15. 2 % 10.0- 14.5 Automated blood platelet count (count/volume) 270 10*3/uL 130-400 Automated blood platelet mean volume measurement 9.4 [foz_us] 7.4-10.4 Automated blood neutrophils/100 leukocytes 54 % 42-75 Automated blood lymphocytes/100 leukocytes 28 % 12-44 Blood monocytes/100 leukocytes 8 % 0-12 Automated blood eosinophils/100 leukocytes 10 % 0-10 Automated blood basophils/100 leukocytes 1 % 0-10 Blood neutrophils automated count (number/volume) 5.4 10*3 1.8-7.8 Blood lymphocytes automated count (number/volume) 2.9 10*3 1.0-4.0 Blood monocytes automated count (number/volume) 0. 8 10*3 0.0-1.0 Automated eosinophil count 1.0 10*3/uL 0 .0-0.3 Automated blood basophil count (count/volume) 0.1 10*3/uL 0.0-0.1 Comprehensive metabolic panel - 12/01/18 17:47 Serum or plasma sodium measurement (moles/volume) 140 mmol/L 135-145 Serum or plasma potassium measurement (moles/volume) 4.6 mmol/L 3.6-5.0 Serum or plasma chloride measurement (moles/volume) 102 mmol/L 98-107 Carbon dioxide 25 mmol/L 21-32 Serum or plasma anion gap determination (moles/volume) 13 mmol/L 5-14 Serum or plasma urea nitrogen measurement (mass/volume ) 21 mg/dL 7-18 Serum or plasma creatinine measurement (mass/volume) 0.74 mg/dL 0.60-1.30 Serum or plasma urea nitrogen/creatinine mass ratio 28 NRG Serum or plasma creatinine measurement w ith calculation of estimated glomerular filtration rate > NRG Serum or plasma glucose measurement (mass/volume) 98 mg/dL 70-105 Serum or plasma calcium measurement (mass/volume) 9.9 mg/dL 8.5-10.1 Serum or plasma total bilirubin measurement (mass/volu me) 0.3 mg/dL 0.1-1.0 Serum or plasma alkaline phosphatase marty surement (enzymatic activity/volume) 74 U/L 40-136 Serum or plasma aspartate aminotransfera se measurement (enzymatic activity/volume) 15 U/L 5-34 Serum or plasma alanine aminotransferase measurement (enzymatic activity/volume) 17 U/L 0-55 Serum or plasma protein measurement (mass/volume) 7.0 g/dL 6.4-8.2 Serum or plasma albumin measurement (mass/volume) 4.1 g/dL 3.2-4.5 CALCIUM CORRECTED 9.8 mg/dL 8.5-10.1 Serum or plasma amylase measurement (enz ymatic activity/volume) - 12/01/18 17:47 Serum or plasma amylase measurement (enzymatic activit y/volume) 23 U/L 25-125 Lipase - 12/01/18 17:47 Lipase 34 U/L 8-78 Bacterial urine culture - 12/01/18 17:50 Bacterial urine culture [id number] NRG COLONY COUNT >100,000/ML NRG FTX;REPORTABLE SUSCEPTIBILITY REPORTED 12-03-18, 15 05. NRG FREE TEXT ENTRY 2 PRELIMINARY REPORT 12/02/18 13:05 NR RML Sensitivity Panel - 12/01/18 17:50 Gentamicin susceptibility test by minimum inhibitory c oncentration <= NRG Trimethoprim/sulfamethoxazole susceptibi lity test by minimum inhibitoryconcentration > NRG Levofloxacin susceptibility test by minimum inhibitory concentration <= NRG Ampicillin susceptibility test by minimum inhibitory c oncentration > NRG Cefazolin susceptibility test by minimum inhibitory co ncentration 2 NRG Ceftriaxone susceptibility test by minimum inhibitory concentration <= NRG Ciprofloxacin susceptibility test by minimum inhibitor y concentration <= NRG Meropenem susceptibility test by minimum inhibitory co ncentration <= NRG Nitrofurantoin susceptibility test by mi nimum inhibitory concentration <= NRG Amoxicillin and clavulanate potassium susc CORDELL = NRG Thyroid Stimulating Hormone - 01/10/19 1 1:50 TSH 1.46 mIU/mL 0.32-5.00 Urinalysis - 01/10/19 13:24 Icotest N/A Negative Urine Crystals moderate amorphous Urine Volume Urine Volume Sufficient (10mL) Urine Yeast No Yeast present Urine-Appearance Cloudy Clear Urine-Bacteria 1+ Urine-Bilirubin Negative Negative Urine-Blood Negative Negative Urine-Color Yellow Colorless-[place] ow Urine-Epithelial Cells 5-10/HPF Urine-Glucose Negative Negative Urine-Ketones Trace Negative Urine-Leukocytes 1+ Negative Urine-Nitrite Negative Negative Urine-Other Culture to follow Urine-pH 5.5 5-8.5 Urine-Protein Negative Negative Urine-RBC Negative Urine-Specific [place] >=1.030 1.000-1 .030 Urine-WBC 5-10/HPF Urobilinogen 0.2 E.U./dL 0.2-1.0 Urine Culture - 01/10/19 13:24 PRELIM CULTURE RESULTS >100,000 Gram Negativ e Lactose [employer] CORDELL / ID to Follow MEDIA PLATED Setup at 17:35 on 01/11/2019 CULTURE SOURCE void specimen was in refrig 24 osmel rs Sensi - 01/10/19 13:24 FINAL CULTURE RESULTS Escherichia coli (Isolate 1) Ampicillin/Sulbactam <=8/4 Ampicillin <=8 Amoxicillin/K Clavulanate <=8/4 Ceftriaxone <=8 Ciprofloxacin <=1 Nitrofurantoin <=32 Gentamicin <=4 Levofloxacin <=2 Trimethoprim/ Sulfamethoxazole <=2/38 Tetracycline <=4 Amikacin <=16 Aztreonam <=8 Ceftazidime <=1 Ceftazidime/K Clavulanate <=0.25 Cephalothin <=8 Cefotaxime <=2 Cefotaxime/K Clavulanate <=0.5 Cefoxitin <=8 Cefazolin <=8 Cefepime <=8 Cefuroxime <=4 Ertapenem <=1 Imipenem <=4 Meropenem <=4 Piperacillin/Tazobactam <=16 Piperacillin <=16 Tigecycline <=2 Tobramycin <=4 Automated blood complete blood count (he mogram) panel - 02/08/19 07:54 Blood leukocytes automated count (number/volume) 9.6 10*3/uL 4.3-11.0 Blood erythrocytes automated count (number/volume) 4.30 10*6/uL 4.35-5.85 Venous blood hemoglobin measurement (mass/volume) 11.6 g/dL 11.5-16.0 Blood hematocrit (volume fraction) 37 % 35-52 Automated erythrocyte mean corpuscular volume 85 [ foz_us] 80-99 Automated erythrocyte mean corpuscular h emoglobin (mass per erythrocyte) 27 pg 25-34 Automated erythrocyte mean corpuscular h emoglobin concentration measurement (mass/volume) 32 g/dL 32-36 Automated erythrocyte distribution width ratio 15. 6 % 10.0- 14.5 Automated blood platelet count (count/volume) 263 10*3/uL 130-400 Automated blood platelet mean volume measurement 9.8 [foz_us] 7.4-10.4 Comprehensive metabolic panel - 02/08/19 07:54 Serum or plasma sodium measurement (moles/volume) 139 mmol/L 135-145 Serum or plasma potassium measurement (moles/volume) 4.3 mmol/L 3.6-5.0 Serum or plasma chloride measurement (moles/volume) 104 mmol/L 98-107 Carbon dioxide 24 mmol/L 21-32 Serum or plasma anion gap determination (moles/volume) 11 mmol/L 5-14 Serum or plasma urea nitrogen measurement (mass/volume ) 21 mg/dL 7-18 Serum or plasma creatinine measurement (mass/volume) 0.78 mg/dL 0.60-1.30 Serum or plasma urea nitrogen/creatinine mass ratio 27 NRG Serum or plasma creatinine measurement w ith calculation of estimated glomerular filtration rate > NRG Serum or plasma glucose measurement (mass/volume) 171 mg/dL 70-105 Serum or plasma calcium measurement (mass/volume) 9.7 mg/dL 8.5-10.1 Serum or plasma total bilirubin measurement (mass/volu me) 0.3 mg/dL 0.1-1.0 Serum or plasma alkaline phosphatase marty surement (enzymatic activity/volume) 73 U/L 40-136 Serum or plasma aspartate aminotransfera se measurement (enzymatic activity/volume) 17 U/L 5-34 Serum or plasma alanine aminotransferase measurement (enzymatic activity/volume) 22 U/L 0-55 Serum or plasma protein measurement (mass/volume) 7.1 g/dL 6.4-8.2 Serum or plasma albumin measurement (mass/volume) 4.1 g/dL 3.2-4.5 CALCIUM CORRECTED 9.6 mg/dL 8.5-10.1 Lipid 1996 panel - 02/08/19 07:54 Serum or plasma triglyceride measurement (mass/volume) 212 mg/dL <150 Serum or plasma cholesterol measurement (mass/volume) 121 mg/dL < 200 Serum or plasma cholesterol in HDL measurement (mass/v olume) 36 mg/dL 40-60 Cholesterol in LDL [mass/volume] in serum or plasma by direct assay 51 mg/dL 1-129 Serum or plasma cholesterol in VLDL measurement (mass/ volume) 42 mg/dL 5-40 PT panel in platelet poor plasma by coag ulation assay - 02/08/19 07:54 Prothrombin time (PT) in platelet poor plasma by coagu lation assay 12.6 s 12.2-14.7 INR in platelet poor plasma or blood by coagulation as say 0.9 0.8-1.4 Activated partial thromboplastin time (a PTT) in platelet poor plasma bycoagulation assay - 02/08/19 07:54 Activated partial thromboplastin time (a PTT) in platelet poor plasma bycoagulation assay 36 s 24-35 Methicillin resistant Staphylococcus aur eus (MRSA) screening culture - 02/08/19 07:54 Methicillin resistant Staphylococcus aureus (MRSA) scr eening culture NEG NRG Activated partial thromboplastin time (a PTT) in platelet poor plasma bycoagulation assay - 02/08/19 13:15 Activated partial thromboplastin time (a PTT) in platelet poor plasma bycoagulation assay 70 s 24-35 Activated partial thromboplastin time (a PTT) in platelet poor plasma bycoagulation assay - 02/08/19 14:48 Activated partial thromboplastin time (a PTT) in platelet poor plasma bycoagulation assay 37 s 24-35 Capillary blood glucose measurement by g lucometer (mass/volume) - 02/08/19 15:23 Capillary blood glucose measurement by glucometer (mas s/volume) 125 mg/dL 70-110 Whole blood hemoglobin and hematocrit pa shmuel - 02/08/19 16:32 Venous blood hemoglobin measurement (mass/volume) 10.7 g/dL 11.5-16.0 Blood hematocrit (volume fraction) 34 % 35-52 Capillary blood glucose measurement by g lucometer (mass/volume) - 02/08/19 20:34 Capillary blood glucose measurement by glucometer (mas s/volume) 337 mg/dL 70-110 Automated blood complete blood count (he mogram) panel - 02/09/19 03:35 Blood leukocytes automated count (number/volume) 8.4 10*3/uL 4.3-11.0 Blood erythrocytes automated count (number/volume) 3.57 10*6/uL 4.35-5.85 Venous blood hemoglobin measurement (mass/volume) 9.8 g/dL 11.5-16.0 Blood hematocrit (volume fraction) 31 % 35-52 Automated erythrocyte mean corpuscular volume 86 [ foz_us] 80-99 Automated erythrocyte mean corpuscular h emoglobin (mass per erythrocyte) 27 pg 25-34 Automated erythrocyte mean corpuscular h emoglobin concentration measurement (mass/volume) 32 g/dL 32-36 Automated erythrocyte distribution width ratio 15. 7 % 10.0- 14.5 Automated blood platelet count (count/volume) 249 10*3/uL 130-400 Automated blood platelet mean volume measurement 9.8 [foz_us] 7.4-10.4 Whole blood basic metabolic panel - 01/13 06/02 03:35 Serum or plasma sodium measurement (moles/volume) 139 mmol/L 135-145 Serum or plasma potassium measurement (moles/volume) 3.9 mmol/L 3.6-5.0 Serum or plasma chloride measurement (moles/volume) 103 mmol/L 98-107 Carbon dioxide 25 mmol/L 21-32 Serum or plasma anion gap determination (moles/volume) 11 mmol/L 5-14 Serum or plasma urea nitrogen measurement (mass/volume ) 17 mg/dL 7-18 Serum or plasma creatinine measurement (mass/volume) 0.71 mg/dL 0.60-1.30 Serum or plasma urea nitrogen/creatinine mass ratio 24 NRG Serum or plasma creatinine measurement w ith calculation of estimated glomerular filtration rate > NRG Serum or plasma glucose measurement (mass/volume) 181 mg/dL 70-105 Serum or plasma calcium measurement (mass/volume) 9.0 mg/dL 8.5-10.1 Capillary blood glucose measurement by g lucometer (mass/volume) - 02/09/19 08:33 Capillary blood glucose measurement by glucometer (mas s/volume) 260 mg/dL 70-110 Complete blood count (CBC) with automate d white blood cell (WBC) differential - 02/25/19 13:19 Blood leukocytes automated count (number/volume) 8.5 10*3/uL 4.3-11.0 Blood erythrocytes automated count (number/volume) 3.85 10*6/uL 4.35-5.85 Venous blood hemoglobin measurement (mass/volume) 10.6 g/dL 11.5-16.0 Blood hematocrit (volume fraction) 33 % 35-52 Automated erythrocyte mean corpuscular volume 87 [ foz_us] 80-99 Automated erythrocyte mean corpuscular h emoglobin (mass per erythrocyte) 28 pg 25-34 Automated erythrocyte mean corpuscular h emoglobin concentration measurement (mass/volume) 32 g/dL 32-36 Automated erythrocyte distribution width ratio 15. 2 % 10.0- 14.5 Automated blood platelet count (count/volume) 292 10*3/uL 130-400 Automated blood platelet mean volume measurement 9.9 [foz_us] 7.4-10.4 Automated blood neutrophils/100 leukocytes 63 % 42-75 Automated blood lymphocytes/100 leukocytes 25 % 12-44 Blood monocytes/100 leukocytes 10 % 0-12 Automated blood eosinophils/100 leukocytes 2 % 0-10 Automated blood basophils/100 leukocytes 1 % 0-10 Blood neutrophils automated count (number/volume) 5.4 10*3 1.8-7.8 Blood lymphocytes automated count (number/volume) 2.1 10*3 1.0-4.0 Blood monocytes automated count (number/volume) 0. 8 10*3 0.0-1.0 Automated eosinophil count 0.2 10*3/uL 0 .0-0.3 Automated blood basophil count (count/volume) 0.0 10*3/uL 0.0-0.1 Comprehensive metabolic panel - 02/25/19 13:19 Serum or plasma sodium measurement (moles/volume) 137 mmol/L 135-145 Serum or plasma potassium measurement (moles/volume) 4.0 mmol/L 3.6-5.0 Serum or plasma chloride measurement (moles/volume) 104 mmol/L 98-107 Carbon dioxide 25 mmol/L 21-32 Serum or plasma anion gap determination (moles/volume) 8 mmol/L 5-14 Serum or plasma urea nitrogen measurement (mass/volume ) 15 mg/dL 7-18 Serum or plasma creatinine measurement (mass/volume) 0.71 mg/dL 0.60-1.30 Serum or plasma urea nitrogen/creatinine mass ratio 21 NRG Serum or plasma creatinine measurement w ith calculation of estimated glomerular filtration rate > NRG Serum or plasma glucose measurement (mass/volume) 164 mg/dL 70-105 Serum or plasma calcium measurement (mass/volume) 9.6 mg/dL 8.5-10.1 Serum or plasma total bilirubin measurement (mass/volu me) 0.4 mg/dL 0.1-1.0 Serum or plasma alkaline phosphatase marty surement (enzymatic activity/volume) 84 U/L 40-136 Serum or plasma aspartate aminotransfera se measurement (enzymatic activity/volume) 16 U/L 5-34 Serum or plasma alanine aminotransferase measurement (enzymatic activity/volume) 21 U/L 0-55 Serum or plasma protein measurement (mass/volume) 6.8 g/dL 6.4-8.2 Serum or plasma albumin measurement (mass/volume) 4.0 g/dL 3.2-4.5 CALCIUM CORRECTED 9.6 mg/dL 8.5-10.1 Magnesium - 02/25/19 13:19 Magnesium 1.6 mg/dL 1.8-2.4 PT panel in platelet poor plasma by coag ulation assay - 02/25/19 13:19 Prothrombin time (PT) in platelet poor plasma by coagu lation assay 13.8 s 12.2-14.7 INR in platelet poor plasma or blood by coagulation as say 1.0 0.8-1.4 Activated partial thromboplastin time (a PTT) in platelet poor plasma bycoagulation assay - 02/25/19 13:19 Activated partial thromboplastin time (a PTT) in platelet poor plasma bycoagulation assay 36 s 24-35 Serum or plasma troponin i.cardiac measu rement (mass/volume) - 02/25/19 13:19 Serum or plasma troponin i.cardiac measurement (mass/v olume) < ng/mL <0.028 Myoglobin, serum - 02/25/19 13:19 Myoglobin, serum 32.5 ng/mL 10.0-92.0 Serum or plasma lithium measurement (mol es/volume) - 02/25/19 13:19 BNP level 103.0 pg/mL <100.0 Serum or plasma troponin i.cardiac measu rement (mass/volume) - 02/25/19 15:21 Serum or plasma troponin i.cardiac measurement (mass/v olume) < ng/mL <0.028 Automated blood complete blood count (he mogram) panel - 03/08/19 10:11 Blood leukocytes automated count (number/volume) 8.6 10*3/uL 4.3-11.0 Blood erythrocytes automated count (number/volume) 4.15 10*6/uL 4.35-5.85 Venous blood hemoglobin measurement (mass/volume) 11.2 g/dL 11.5-16.0 Blood hematocrit (volume fraction) 36 % 35-52 Automated erythrocyte mean corpuscular volume 87 [ foz_us] 80-99 Automated erythrocyte mean corpuscular h emoglobin (mass per erythrocyte) 27 pg 25-34 Automated erythrocyte mean corpuscular h emoglobin concentration measurement (mass/volume) 31 g/dL 32-36 Automated erythrocyte distribution width ratio 14. 6 % 10.0- 14.5 Automated blood platelet count (count/volume) 245 10*3/uL 130-400 Automated blood platelet mean volume measurement 10.2 [foz_us] 7.4-10.4 PT panel in platelet poor plasma by coag ulation assay - 03/08/19 10:11 Prothrombin time (PT) in platelet poor plasma by coagu lation assay 12.4 s 12.2-14.7 INR in platelet poor plasma or blood by coagulation as say 0.9 0.8-1.4 Activated partial thromboplastin time (a PTT) in platelet poor plasma bycoagulation assay - 03/08/19 10:11 Activated partial thromboplastin time (a PTT) in platelet poor plasma bycoagulation assay 36 s 24-35 Comprehensive metabolic panel - 03/08/19 10:11 Serum or plasma sodium measurement (moles/volume) 135 mmol/L 135-145 Serum or plasma potassium measurement (moles/volume) 4.8 mmol/L 3.6-5.0 Serum or plasma chloride measurement (moles/volume) 102 mmol/L 98-107 Carbon dioxide 20 mmol/L 21-32 Serum or plasma anion gap determination (moles/volume) 13 mmol/L 5-14 Serum or plasma urea nitrogen measurement (mass/volume ) 21 mg/dL 7-18 Serum or plasma creatinine measurement (mass/volume) 0.86 mg/dL 0.60-1.30 Serum or plasma urea nitrogen/creatinine mass ratio 24 NRG Serum or plasma creatinine measurement w ith calculation of estimated glomerular filtration rate > NRG Serum or plasma glucose measurement (mass/volume) 366 mg/dL 70-105 Serum or plasma calcium measurement (mass/volume) 9.6 mg/dL 8.5-10.1 Serum or plasma total bilirubin measurement (mass/volu me) 0.4 mg/dL 0.1-1.0 Serum or plasma alkaline phosphatase marty surement (enzymatic activity/volume) 82 U/L 40-136 Serum or plasma aspartate aminotransfera se measurement (enzymatic activity/volume) 28 U/L 5-34 Serum or plasma alanine aminotransferase measurement (enzymatic activity/volume) 26 U/L 0-55 Serum or plasma protein measurement (mass/volume) 7.5 g/dL 6.4-8.2 Serum or plasma albumin measurement (mass/volume) 4.1 g/dL 3.2-4.5 CALCIUM CORRECTED 9.5 mg/dL 8.5-10.1 Lipid 1996 panel - 03/08/19 10:11 Serum or plasma triglyceride measurement (mass/volume) 119 mg/dL <150 Serum or plasma cholesterol measurement (mass/volume) 136 mg/dL < 200 Serum or plasma cholesterol in HDL measurement (mass/v olume) 36 mg/dL 40-60 Cholesterol in LDL [mass/volume] in serum or plasma by direct assay 74 mg/dL 1-129 Serum or plasma cholesterol in VLDL measurement (mass/ volume) 24 mg/dL 5-40 Methicillin resistant Staphylococcus aur eus (MRSA) screening culture - 03/08/19 10:11 Methicillin resistant Staphylococcus aureus (MRSA) scr eening culture NEG NRG Capillary blood glucose measurement by g lucometer (mass/volume) - 03/08/19 20:03 Capillary blood glucose measurement by glucometer (mas s/volume) 389 mg/dL 70-110 Automated blood complete blood count (he mogram) panel - 03/09/19 03:00 Blood leukocytes automated count (number/volume) 8.3 10*3/uL 4.3-11.0 Blood erythrocytes automated count (number/volume) 3.62 10*6/uL 4.35-5.85 Venous blood hemoglobin measurement (mass/volume) 9.5 g/dL 11.5-16.0 Blood hematocrit (volume fraction) 31 % 35-52 Automated erythrocyte mean corpuscular volume 87 [ foz_us] 80-99 Automated erythrocyte mean corpuscular h emoglobin (mass per erythrocyte) 26 pg 25-34 Automated erythrocyte mean corpuscular h emoglobin concentration measurement (mass/volume) 30 g/dL 32-36 Automated erythrocyte distribution width ratio 14. 6 % 10.0- 14.5 Automated blood platelet count (count/volume) 240 10*3/uL 130-400 Automated blood platelet mean volume measurement 9.9 [foz_us] 7.4-10.4 Whole blood basic metabolic panel - 02/13 03/02 03:00 Serum or plasma sodium measurement (moles/volume) 135 mmol/L 135-145 Serum or plasma potassium measurement (moles/volume) 3.8 mmol/L 3.6-5.0 Serum or plasma chloride measurement (moles/volume) 104 mmol/L 98-107 Carbon dioxide 21 mmol/L 21-32 Serum or plasma anion gap determination (moles/volume) 10 mmol/L 5-14 Serum or plasma urea nitrogen measurement (mass/volume ) 17 mg/dL 7-18 Serum or plasma creatinine measurement (mass/volume) 0.79 mg/dL 0.60-1.30 Serum or plasma urea nitrogen/creatinine mass ratio 22 NRG Serum or plasma creatinine measurement w ith calculation of estimated glomerular filtration rate > NRG Serum or plasma glucose measurement (mass/volume) 329 mg/dL 70-105 Serum or plasma calcium measurement (mass/volume) 8.8 mg/dL 8.5-10.1 Complete blood count (CBC) with automate d white blood cell (WBC) differential - 08/16/19 11:15 Blood leukocytes automated count (number/volume) 9.4 10*3/uL 4.3-11.0 Blood erythrocytes automated count (number/volume) 3.98 10*6/uL 4.35-5.85 Venous blood hemoglobin measurement (mass/volume) 9.4 g/dL 11.5-16.0 Blood hematocrit (volume fraction) 32 % 35-52 Automated erythrocyte mean corpuscular volume 80 [ foz_us] 80-99 Automated erythrocyte mean corpuscular h emoglobin (mass per erythrocyte) 24 pg 25-34 Automated erythrocyte mean corpuscular h emoglobin concentration measurement (mass/volume) 30 g/dL 32-36 Automated erythrocyte distribution width ratio 17. 8 % 10.0- 14.5 Automated blood platelet count (count/volume) 256 10*3/uL 130-400 Automated blood platelet mean volume measurement 9.5 [foz_us] 7.4-10.4 Automated blood neutrophils/100 leukocytes 68 % 42-75 Automated blood lymphocytes/100 leukocytes 21 % 12-44 Blood monocytes/100 leukocytes 8 % 0-12 Automated blood eosinophils/100 leukocytes 4 % 0-10 Automated blood basophils/100 leukocytes 0 % 0-10 Blood neutrophils automated count (number/volume) 6.3 10*3 1.8-7.8 Blood lymphocytes automated count (number/volume) 2.0 10*3 1.0-4.0 Blood monocytes automated count (number/volume) 0. 7 10*3 0.0-1.0 Automated eosinophil count 0.3 10*3/uL 0 .0-0.3 Automated blood basophil count (count/volume) 0.0 10*3/uL 0.0-0.1 Fibrin D-dimer FEU measurement in platel et poor plasma (mass/volume) - 08/16/19 11:15 Fibrin D-dimer FEU measurement in platelet poor plasma (mass/volume) 0.84 ug/mL 0.00-0.49 Comprehensive metabolic panel - 08/16/19 11:15 Serum or plasma sodium measurement (moles/volume) 139 mmol/L 135-145 Serum or plasma potassium measurement (moles/volume) 4.1 mmol/L 3.6-5.0 Serum or plasma chloride measurement (moles/volume) 104 mmol/L 98-107 Carbon dioxide 24 mmol/L 21-32 Serum or plasma anion gap determination (moles/volume) 11 mmol/L 5-14 Serum or plasma urea nitrogen measurement (mass/volume ) 18 mg/dL 7-18 Serum or plasma creatinine measurement (mass/volume) 0.72 mg/dL 0.60-1.30 Serum or plasma urea nitrogen/creatinine mass ratio 25 NRG Serum or plasma creatinine measurement w ith calculation of estimated glomerular filtration rate > NRG Serum or plasma glucose measurement (mass/volume) 179 mg/dL 70-105 Serum or plasma calcium measurement (mass/volume) 9.2 mg/dL 8.5-10.1 Serum or plasma total bilirubin measurement (mass/volu me) 0.3 mg/dL 0.1-1.0 Serum or plasma alkaline phosphatase marty surement (enzymatic activity/volume) 84 U/L 40-136 Serum or plasma aspartate aminotransfera se measurement (enzymatic activity/volume) 20 U/L 5-34 Serum or plasma alanine aminotransferase measurement (enzymatic activity/volume) 29 U/L 0-55 Serum or plasma protein measurement (mass/volume) 7.1 g/dL 6.4-8.2 Serum or plasma albumin measurement (mass/volume) 4.2 g/dL 3.2-4.5 CALCIUM CORRECTED 9.0 mg/dL 8.5-10.1 Serum or plasma troponin i.cardiac measu rement (mass/volume) - 08/16/19 11:15 Serum or plasma troponin i.cardiac measurement (mass/v olume) 0.028 ng/mL <0.028 Serum or plasma lithium measurement (mol es/volume) - 08/16/19 11:15 BNP PT 208.6 pg/mL <100.0 Complete urinalysis with reflex to cultu re - 08/16/19 13:00 Urine color determination YELLOW NRG Urine clarity determination CLEAR NR G Urine pH measurement by test strip 5.5 5-9 Specific gravity of urine by test strip 1.020 1.016-1.022 Urine protein assay by test strip, semi-quantitative NEGATIVE NEGATIVE Urine glucose detection by automated test strip TR EILEEN NEGATIVE Erythrocytes detection in urine sediment by light micr oscopy NEGATIVE NEGATIVE Urine ketones detection by automated test strip NE GATIVE NEGATIVE Urine nitrite detection by test strip NEGATIVE NEGATIVE Urine total bilirubin detection by test strip NEGA TIVE NEGATIVE Urine urobilinogen measurement by automated test strip (mass/volume) 0.2 mg/dL < = 1.0 Urine leukocyte esterase detection by dipstick NEG ATIVE NEGATIVE Automated urine sediment erythrocyte cou nt by microscopy (number/high power field) NONE NRG Automated urine sediment leukocyte count by microscopy (number/high power field) [HPF] NRG Bacteria detection in urine sediment by light microsco py LARGE NRG Squamous epithelial cells detection in u rine sediment by light microscopy 5-10 NRG Crystals detection in urine sediment by light microsco py NONE NRG Casts detection in urine sediment by light microscopy NONE NRG Mucus detection in urine sediment by light microscopy NEGATIVE NRG Complete urinalysis with reflex to culture YES NRG Bacterial urine culture - 08/16/19 13:00 Bacterial urine culture [id number] NRG COLONY COUNT >100,000/ML NRG FTX;REPORTABLE SUSCEPTIBILTIY REPORTED 08/20/19 10: 00 NRG Dirithromycin susceptibility test by dis k diffusion - 08/16/19 13:00 Gentamicin susceptibility test by minimum inhibitory c oncentration <= NRG Trimethoprim/sulfamethoxazole susceptibi lity test by minimum inhibitoryconcentration > NRG Levofloxacin susceptibility test by minimum inhibitory concentration <= NRG Ampicillin susceptibility test by minimum inhibitory c oncentration > NRG Cefazolin susceptibility test by minimum inhibitory co ncentration <= NRG Ceftriaxone susceptibility test by minimum inhibitory concentration <= NRG Ciprofloxacin susceptibility test by minimum inhibitor y concentration <= NRG Meropenem susceptibility test by minimum inhibitory co ncentration <= NRG Nitrofurantoin susceptibility test by mi nimum inhibitory concentration <= NRG Amoxicillin and clavulanate potassium susc CORDELL <= NRG Dirithromycin susceptibility test by dis k diffusion - 08/16/19 13:00 Gentamicin susceptibility test by minimum inhibitory c oncentration <= NRG Trimethoprim/sulfamethoxazole susceptibi lity test by minimum inhibitoryconcentration <= NRG Levofloxacin susceptibility test by minimum inhibitory concentration <= NRG Ampicillin susceptibility test by minimum inhibitory c oncentration <= NRG Cefazolin susceptibility test by minimum inhibitory co ncentration <= NRG Ceftriaxone susceptibility test by minimum inhibitory concentration <= NRG Ciprofloxacin susceptibility test by minimum inhibitor y concentration <= NRG Meropenem susceptibility test by minimum inhibitory co ncentration <= NRG Nitrofurantoin susceptibility test by mi nimum inhibitory concentration <= NRG Amoxicillin and clavulanate potassium susc CORDELL <= NRG Serum or plasma troponin i.cardiac measu rement (mass/volume) - 08/16/19 17:27 Serum or plasma troponin i.cardiac measurement (mass/v olume) < ng/mL <0.028 Complete blood count (CBC) with automate d white blood cell (WBC) differential - 08/17/19 04:20 Blood leukocytes automated count (number/volume) 8.7 10*3/uL 4.3-11.0 Blood erythrocytes automated count (number/volume) 3.98 10*6/uL 4.35-5.85 Venous blood hemoglobin measurement (mass/volume) 9.5 g/dL 11.5-16.0 Blood hematocrit (volume fraction) 32 % 35-52 Automated erythrocyte mean corpuscular volume 79 [ foz_us] 80-99 Automated erythrocyte mean corpuscular h emoglobin (mass per erythrocyte) 24 pg 25-34 Automated erythrocyte mean corpuscular h emoglobin concentration measurement (mass/volume) 30 g/dL 32-36 Automated erythrocyte distribution width ratio 17. 7 % 10.0- 14.5 Automated blood platelet count (count/volume) 242 10*3/uL 130-400 Automated blood platelet mean volume measurement 9.7 [foz_us] 7.4-10.4 Automated blood neutrophils/100 leukocytes 66 % 42-75 Automated blood lymphocytes/100 leukocytes 20 % 12-44 Blood monocytes/100 leukocytes 11 % 0-12 Automated blood eosinophils/100 leukocytes 3 % 0-10 Automated blood basophils/100 leukocytes 1 % 0-10 Blood neutrophils automated count (number/volume) 5.7 10*3 1.8-7.8 Blood lymphocytes automated count (number/volume) 1.8 10*3 1.0-4.0 Blood monocytes automated count (number/volume) 0. 9 10*3 0.0-1.0 Automated eosinophil count 0.3 10*3/uL 0 .0-0.3 Automated blood basophil count (count/volume) 0.0 10*3/uL 0.0-0.1 Comprehensive metabolic panel - 08/17/19 04:20 Serum or plasma sodium measurement (moles/volume) 141 mmol/L 135-145 Serum or plasma potassium measurement (moles/volume) 3.7 mmol/L 3.6-5.0 Serum or plasma chloride measurement (moles/volume) 103 mmol/L 98-107 Carbon dioxide 24 mmol/L 21-32 Serum or plasma anion gap determination (moles/volume) 14 mmol/L 5-14 Serum or plasma urea nitrogen measurement (mass/volume ) 19 mg/dL 7-18 Serum or plasma creatinine measurement (mass/volume) 0.71 mg/dL 0.60-1.30 Serum or plasma urea nitrogen/creatinine mass ratio 27 NRG Serum or plasma creatinine measurement w ith calculation of estimated glomerular filtration rate > NRG Serum or plasma glucose measurement (mass/volume) 172 mg/dL 70-105 Serum or plasma calcium measurement (mass/volume) 9.4 mg/dL 8.5-10.1 Serum or plasma total bilirubin measurement (mass/volu me) 0.4 mg/dL 0.1-1.0 Serum or plasma alkaline phosphatase marty surement (enzymatic activity/volume) 80 U/L 40-136 Serum or plasma aspartate aminotransfera se measurement (enzymatic activity/volume) 18 U/L 5-34 Serum or plasma alanine aminotransferase measurement (enzymatic activity/volume) 22 U/L 0-55 Serum or plasma protein measurement (mass/volume) 6.7 g/dL 6.4-8.2 Serum or plasma albumin measurement (mass/volume) 3.9 g/dL 3.2-4.5 CALCIUM CORRECTED 9.5 mg/dL 8.5-10.1 Capillary blood glucose measurement by g lucometer (mass/volume) - 08/17/19 11:04 Capillary blood glucose measurement by glucometer (mas s/volume) 327 mg/dL 70-110 Capillary blood glucose measurement by g lucometer (mass/volume) - 08/17/19 16:16 Capillary blood glucose measurement by glucometer (mas s/volume) 219 mg/dL 70-110 Capillary blood glucose measurement by g lucometer (mass/volume) - 08/17/19 20:09 Capillary blood glucose measurement by glucometer (mas s/volume) 288 mg/dL 70-110 Serum or plasma lithium measurement (mol es/volume) - 08/18/19 04:20 BNP PT 87.0 pg/mL <100.0 Complete blood count (CBC) with automate d white blood cell (WBC) differential - 08/18/19 05:25 Blood leukocytes automated count (number/volume) 8.1 10*3/uL 4.3-11.0 Blood erythrocytes automated count (number/volume) 4.20 10*6/uL 4.35-5.85 Venous blood hemoglobin measurement (mass/volume) 10.0 g/dL 11.5-16.0 Blood hematocrit (volume fraction) 34 % 35-52 Automated erythrocyte mean corpuscular volume 80 [ foz_us] 80-99 Automated erythrocyte mean corpuscular h emoglobin (mass per erythrocyte) 24 pg 25-34 Automated erythrocyte mean corpuscular h emoglobin concentration measurement (mass/volume) 30 g/dL 32-36 Automated erythrocyte distribution width ratio 17. 4 % 10.0- 14.5 Automated blood platelet count (count/volume) 249 10*3/uL 130-400 Automated blood platelet mean volume measurement 9.9 [foz_us] 7.4-10.4 Automated blood neutrophils/100 leukocytes 58 % 42-75 Automated blood lymphocytes/100 leukocytes 24 % 12-44 Blood monocytes/100 leukocytes 13 % 0-12 Automated blood eosinophils/100 leukocytes 5 % 0-10 Automated blood basophils/100 leukocytes 1 % 0-10 Blood neutrophils automated count (number/volume) 4.7 10*3 1.8-7.8 Blood lymphocytes automated count (number/volume) 1.9 10*3 1.0-4.0 Blood monocytes automated count (number/volume) 1. 1 10*3 0.0-1.0 Automated eosinophil count 0.4 10*3/uL 0 .0-0.3 Automated blood basophil count (count/volume) 0.0 10*3/uL 0.0-0.1 Comprehensive metabolic panel - 08/18/19 05:25 Serum or plasma sodium measurement (moles/volume) 137 mmol/L 135-145 Serum or plasma potassium measurement (moles/volume) 4.0 mmol/L 3.6-5.0 Serum or plasma chloride measurement (moles/volume) 101 mmol/L 98-107 Carbon dioxide 24 mmol/L 21-32 Serum or plasma anion gap determination (moles/volume) 12 mmol/L 5-14 Serum or plasma urea nitrogen measurement (mass/volume ) 26 mg/dL 7-18 Serum or plasma creatinine measurement (mass/volume) 0.86 mg/dL 0.60-1.30 Serum or plasma urea nitrogen/creatinine mass ratio 30 NRG Serum or plasma creatinine measurement w ith calculation of estimated glomerular filtration rate > NRG Serum or plasma glucose measurement (mass/volume) 283 mg/dL 70-105 Serum or plasma calcium measurement (mass/volume) 9.2 mg/dL 8.5-10.1 Serum or plasma total bilirubin measurement (mass/volu me) 0.4 mg/dL 0.1-1.0 Serum or plasma alkaline phosphatase marty surement (enzymatic activity/volume) 83 U/L 40-136 Serum or plasma aspartate aminotransfera se measurement (enzymatic activity/volume) 17 U/L 5-34 Serum or plasma alanine aminotransferase measurement (enzymatic activity/volume) 25 U/L 0-55 Serum or plasma protein measurement (mass/volume) 6.7 g/dL 6.4-8.2 Serum or plasma albumin measurement (mass/volume) 3.8 g/dL 3.2-4.5 CALCIUM CORRECTED 9.4 mg/dL 8.5-10.1 Capillary blood glucose measurement by g lucometer (mass/volume) - 08/18/19 06:06 Capillary blood glucose measurement by glucometer (mas s/volume) 276 mg/dL 70-110 Capillary blood glucose measurement by g lucometer (mass/volume) - 08/18/19 10:22 Capillary blood glucose measurement by glucometer (mas s/volume) 287 mg/dL 70-110 Urinalysis - 03/06/20 12:21 Icotest N/A Negative Urine Volume Urine Volume Sufficient (10mL) Urine-Appearance Clear Clear Urine-Bacteria 2+ Urine-Bilirubin Negative Negative Urine-Blood Negative Negative Urine-Color Yellow Colorless-[place] ow Urine-Epithelial Cells 0-5/HPF Urine-Glucose 3+ Negative Urine-Ketones 1+ Negative Urine-Leukocytes Negative Negative Urine-Nitrite Positive Negative Urine-Other Culture to follow Urine-pH 5.0 5-8.5 Urine-Protein 1+ Negative Urine-RBC Negative Urine-Specific [place] 1.015 1.000-1 .030 Urine-WBC 2-5/HPF Urobilinogen 0.2 E.U./dL 0.2-1.0 Urine Culture - 03/06/20 12:21 PRELIM CULTURE RESULTS >100,000 Gram Negativ e Lactose [employer] CORDELL / ID to Follow MEDIA PLATED Setup at 13:43 on 03/06/2020 CULTURE SOURCE CC Sensi - 03/06/20 12:21 FINAL CULTURE RESULTS Escherichia coli (Isolate 1) Ampicillin/Sulbactam <=8/4 Ampicillin <=8 Ceftriaxone <=1 Ciprofloxacin <=1 Nitrofurantoin <=32 Gentamicin <=4 Levofloxacin <=2 Trimethoprim/ Sulfamethoxazole <=2/38 Tetracycline <=4 Amikacin <=16 Aztreonam <=4 Ceftazidime <=1 Ceftazidime/K Clavulanate <=0.25 Cefotaxime <=2 Cefotaxime/K Clavulanate <=0.5 Cefoxitin <=8 Cefazolin <=2 Cefepime <=2 Ertapenem <=0.5 Imipenem <=1 Meropenem <=1 Piperacillin/Tazobactam <=16 Tigecycline <=2 Tobramycin <=4 Hemoglobin A1C - 03/06/20 12:45 % A1C 11.50 % 5.40-6.60 AvGlu 333 mg/dL 70-110 Blood Culture - 03/06/20 12:45 PRELIM CULTURE RESULTS Blood Culture Negativ e, No Growth Day 1 FINAL CULTURE RESULTS Blood Culture Negative , No Growth Day 5 CULTURE SOURCE IV start Blood Culture - 03/06/20 12:58 PRELIM CULTURE RESULTS Blood Culture Negativ e, No Growth Day 1 FINAL CULTURE RESULTS Blood Culture Negative , No Growth Day 5 CULTURE SOURCE Arterial Lactic Acid - 03/06/20 14:30 Lactic Acid 21.4 mg/dL 4.5-19.8 Comprehensive Metabolic Panel - 03/07/20 05:25 Albumin 3.4 g/dL 3.6-5.1 ALP 74 U/L 35-130 ALT 26 U/L 6-45 Anion Gap 15 6-14 AST 31 U/L 2-40 BUN 15 mg/dL 5-25 Calcium 8.0 mg/dL 8.3-10.4 Chloride 108 mmol/L 95-114 CO2 19 mEq/L 22-33 Creat 0.88 mg/dL 0.50-1.50 eGFR 65 mL/min/1.73m2 >59 Globulin 2.8 g/dL 2.3-3.5 Glucose 156 mg/dL 70-110 Osmo 289 280-295 Potassium 4.1 mmol/L 3.5-5.3 Sodium 138 mmol/L 134-148 TBil 0.4 mg/dL 0.2-1.2 TP 6.2 g/dL 6.0-8.3 Iron - 03/08/20 05:30 Iron 17 ug/dL 70-200 Other Culture - 03/08/20 17:30 PRELIM CULTURE RESULTS Moderate Gram Positiv e CORDELL / ID to Follow MEDIA PLATED Setup at 18:05 on 03/08/2020 Sensi - 03/08/20 17:30 FINAL CULTURE RESULTS Moderate Staphylococcu s aureus (Isolate 1) Ampicillin/Sulbactam <=8/4 Ampicillin <=2 Amoxicillin/K Clavulanate <=4/2 Ceftriaxone <=8 Clindamycin <=0.5 Cefoxitin Screen <=4 Ciprofloxacin <=1 Daptomycin <=0.5 Erythromycin <=0.5 Nitrofurantoin <=32 Gentamicin <=4 Gentamicin Synergy Screen N/R Inducible Clindamycin N/R Levofloxacin <=1 Linezolid 2 Moxifloxacin <=0.5 Oxacillin <=0.25 Penicillin 0.25 Rifampin <=1 Streptomycin Synergy N/R Synercid <=0.5 Trimethoprim/ Sulfamethoxazole <=0.5/9.5 Tetracycline <=4 Vancomycin 2 Comprehensive Metabolic Panel - 03/09/20 05:05 Albumin 3.2 g/dL 3.6-5.1 ALP 67 U/L 35-130 ALT 48 U/L 6-45 Anion Gap 13 6-14 AST 52 U/L 2-40 BUN 12 mg/dL 5-25 Calcium 7.9 mg/dL 8.3-10.4 Chloride 107 mmol/L 95-114 CO2 23 mEq/L 22-33 Creat 0.95 mg/dL 0.50-1.50 eGFR 59 mL/min/1.73m2 >59 Globulin 2.5 g/dL 2.3-3.5 Glucose 147 mg/dL 70-110 Osmo 289 280-295 Potassium 3.5 mmol/L 3.5-5.3 Sodium 139 mmol/L 134-148 TBil 0.3 mg/dL 0.2-1.2 TP 5.7 g/dL 6.0-8.3 Comprehensive Metabolic Panel - 03/10/20 05:16 Albumin 3.1 g/dL 3.6-5.1 ALP 86 U/L 35-130 ALT 64 U/L 6-45 Anion Gap 13 6-14 AST 52 U/L 2-40 BUN 9 mg/dL 5-25 Calcium 8.1 mg/dL 8.3-10.4 Chloride 106 mmol/L 95-114 CO2 22 mEq/L 22-33 Creat 0.81 mg/dL 0.50-1.50 eGFR 71 mL/min/1.73m2 >59 Globulin 2.9 g/dL 2.3-3.5 Glucose 117 mg/dL 70-110 Osmo 283 280-295 Potassium 3.5 mmol/L 3.5-5.3 Sodium 137 mmol/L 134-148 TBil 0.4 mg/dL 0.2-1.2 TP 6.0 g/dL 6.0-8.3 Vancomycin Trough - 03/10/20 08:00 Vanco Trough 9.0 ug/mL 10.0-20.0 Comprehensive Metabolic Panel - 03/11/20 04:40 Albumin 3.3 g/dL 3.6-5.1 ALP 114 U/L 35-130 ALT 89 U/L 6-45 Anion Gap 13 6-14 AST 65 U/L 2-40 BUN 12 mg/dL 5-25 Calcium 8.1 mg/dL 8.3-10.4 Chloride 106 mmol/L 95-114 CO2 24 mEq/L 22-33 Creat 0.77 mg/dL 0.50-1.50 eGFR 75 mL/min/1.73m2 >59 Globulin 2.6 g/dL 2.3-3.5 Glucose 135 mg/dL 70-110 Osmo 289 280-295 Potassium 3.6 mmol/L 3.5-5.3 Sodium 139 mmol/L 134-148 TBil 0.5 mg/dL 0.2-1.2 TP 5.9 g/dL 6.0-8.3 Comprehensive Metabolic Panel - 03/12/20 05:30 Albumin 3.3 g/dL 3.6-5.1 ALP 153 U/L 35-130 ALT 99 U/L 6-45 Anion Gap 12 6-14 AST 61 U/L 2-40 BUN 10 mg/dL 5-25 Calcium 8.1 mg/dL 8.3-10.4 Chloride 106 mmol/L 95-114 CO2 25 mEq/L 22-33 Creat 0.76 mg/dL 0.50-1.50 eGFR 77 mL/min/1.73m2 >59 Globulin 2.7 g/dL 2.3-3.5 Glucose 111 mg/dL 70-110 Osmo 287 280-295 Potassium 3.6 mmol/L 3.5-5.3 Sodium 139 mmol/L 134-148 TBil 0.4 mg/dL 0.2-1.2 TP 6.0 g/dL 6.0-8.3 Encounters ACCT No. Visit Date/Time Discharge Status Pt. Type Provider Facility Loc./Unit Complaint [id number] 03/16/2020 11:14:00 03/16/2020 12:20 :00 DIS Outpatient FariasCarmen [id number] 03/14/2020 16:05:00 03/14/2020 16:53 :00 DIS Outpatient LYNN DELEON APRN [id number] 03/06/2020 12:17:00 03/12/2020 11:55 :00 DIS Inpatient Carmen Farias [facility] C enter MED-SURG [id number] 01/10/2019 13:21:00 01/10/2019 23:59: 00 DIS Outpatient NESSA TURCIOS [id number] 01/10/2019 12:35:00 01/10/2019 23:59: 00 DIS Outpatient NESSA TURCIOS [id number] 03/06/2020 12:43:40 Document Registration [id number] 01/10/2019 11:00:00 Document Registration [id number] 04/03/2020 05:48:00 13:41:00 DIS Outpatient REAGAN DPM, MARIBEL Q [facility] PREOP OSTEOMYELITIS RIGHT 3RD TOE [id number] 08/16/2019 13:21:00 15:11:00 DIS Inpatient TAYO SUTTON DO [facility] 4TH DYSPNEA;PULMONA RY EDEMA VS PNEUMONIA [id number] 07/18/2019 10:00:00 23:59:59 CLS Preadmit TAYO SUTTON DO [facility] CR STENT [id number] 06/13/2019 10:15:00 00:01:00 DIS Outpatient TAYO SUTTON DO [facility] CR STENT [id number] 04/14/2019 14:30:00 23:59:59 CLS Preadmit ABBI ESCOBAR APRN [facility] RAD OTHER ABNORMALI TIES OF BREATHING [id number] 04/14/2019 14:05:00 23:59:59 CLS Preadmit ABBI ESCOBAR APRN [facility] RAD HYPERSOMNIA, UN SPECIFIED [id number] 03/08/2019 09:40:00 23:59:59 CLS Outpatient GORDO EASTMAN FACC, DEBORA MILLERP CC DS [facility] CAD,SOB,FATIGUE,HTN,ANGINA [id number] 02/25/2019 13:13:00 16:17:00 DIS Emergency TAYLORDEBBIE APRN [facility] ER SOB,CHEST TIGHTNESS [id number] 02/22/2019 09:59:00 23:59:59 CLS Outpatient TAYO SUTTON DO Jody [facility] RAD SCREENING [id number] 02/08/2019 06:55:00 10:45:00 DIS Outpatient GORDO EASTMAN FACC, DEBORA MILLERP CC DS [facility] 3 VESSEL CA D, CONSTATNINO, TIREDNESS, HTN [id number] 12/03/2018 14:58:00 23:59:59 CLS Outpatient LESLEY THOMPSON TAYO Jody [facility] RAD SEVERE ABD PAIN [id number] 12/01/2018 17:29:00 23:59:59 CLS Outpatient LESLEY THOMPSON TAYO Vera [facility] LAB CMP,CBC,URINE C LUTURE [id number] 11/10/2018 16:47:00 13:05:00 DIS Inpatient JIMCNAIR TAYO Jody [facility] 4TH PNEUMONIA,DIABE KINJAL,FAILURE TO RESPOND TO OP TREAT [id number] 11/10/2018 10:53:00 23:59:59 CLS Outpatient JIMCNAIR TAYO Jody [facility] RAD COUGH [id number] 10/15/2018 12:17:00 23:59:59 CLS Outpatient LESLEY DO TAYO Jody [facility] LAB UTI [id number] 03/23/2018 07:14:00 13:30:00 DIS Outpatient GORDO EASTMAN FACC, DEBORA CHAVIRA CC DS [facility] CATH ANGINA,SOB, FATIGUE,HTN [id number] 02/12/2018 11:16:00 018 14:50:00 DIS Outpatient REAGAN DPM, MARIBEL Q [facility] SDC CHRONIC NON PRESSURE UL CER [id number] 02/04/2018 10:29:00 018 10:50:00 DIS Outpatient REAGAN DPM, MARIBEL Q [facility] PREOP CHRONIC NON PRESSURE UL CER [id number] 12/04/2017 23:15:00 018 14:30:00 DIS Inpatient FARIAS DO, CARMEN [facility] 4TH HYPERTENSIVE EMERGENCY,DISEQUILIBRIUM,UTI,NAUSEA [id number] 08/14/2017 09:04:00 017 23:59:59 CLS Outpatient MARÍA ELENA HYMAN MD [facility] WOUNDCARE [id number] 08/08/2017 10:29:00 017 15:36:00 DIS Emergency MELITON EASTMAN, HIRAM Henry [facility] ER R BIG TOE ULCER [id number] 05/26/2017 10:14:00 017 23:59:59 CLS Outpatient RAY PEACOCK APRN [facility] WOUNDCARE [id number] 05/19/2017 09:47:00 017 23:59:59 CLS Outpatient RAY PEACOCK APRN [facility] WOUNDCARE [id number] 05/19/2017 09:14:00 017 23:59:59 CLS Outpatient TAYO SUTTON DO [facility] RAD SCREENING [id number] 05/12/2017 10:10:00 017 23:59:59 CLS Outpatient RAY PEACOCK APRN [facility] WOUNDCARE [id number] 05/06/2017 23:10:00 017 11:40:00 DIS Inpatient TAYO SUTTON DO [facility] 4TH SEPSIS,DIABETIC FOOT ULCER,R SHOULDER PAIN;WEAKNES [id number] 05/05/2017 10:26:00 017 23:59:59 CLS Outpatient MAURICE PEACOCKN R MUD ENGINEER [facility] WOUNDCARE [id number] 04/28/2017 10:25:00 017 23:59:59 CLS Outpatient AYUSH, RAY R MUD ENGINEER [facility] WOUNDCARE [id number] 04/21/2017 10:26:00 017 23:59:59 CLS Outpatient AYUSH, RAY R MUD ENGINEER [facility] WOUNDCARE [id number] 04/14/2017 10:29:00 017 23:59:59 CLS Outpatient AYUSH, RAY R MUD ENGINEER [facility] WOUNDCARE [id number] 04/09/2017 10:09:00 017 16:00:00 DIS Outpatient AYUSH RAY R MUD ENGINEER [facility] [id number] 03/18/2017 00:13:00 017 23:59:59 CLS Preadmit MAURICE PEACOCKN R MUD ENGINEER [facility] RIGHT TOE GEAT WOUND [id number] 01/02/2017 09:00:00 017 00:01:00 DIS Outpatient AYUSH RAY R MUD ENGINEER [facility] RIGHT TOE GEAT WOUND [id number] 03/05/2017 10:01:00 017 23:59:59 [facility] Outpatient MARANDALENTAYO BILLINGS DO [facility] CARD PAIN IN RUQ [id number] 02/19/2017 06:40:00 017 23:59:59 [facility] Outpatient GELLENTAYO BILLINGS DO [facility] RAD RUQ PAIN [id number] 02/10/2017 09:39:00 017 16:00:00 DIS Outpatient AYUSH RAY R MUD ENGINEER [facility] [id number] 01/13/2017 13:00:00 017 00:01:00 DIS Outpatient AYUSH RAY R MUD ENGINEER [facility] [id number] 01/09/2017 12:15:00 017 23:59:59 CLS Outpatient TAYO SUTTON DO [facility] LAB SOB AT TIMES,SCOTT NELSON [id number] 11/27/2016 13:22:00 017 23:59:59 CLS Outpatient RAY PEACOCK R MUD ENGINEER [facility] RAD L97.512 [id number] 10/14/2016 12:32:00 16:00:00 DIS Outpatient RAY PEACOCK R MUD ENGINEER [facility] [id number] 09/09/2016 12:03:00 00:01:00 DIS Outpatient RAY PEACOCK R MUD ENGINEER [facility] [id number] 07/01/2016 14:00:00 016 23:59:59 CLS Outpatient RAY PEACOCK R MUD ENGINEER [facility] LAB L97.512,E11.621 [id number] 06/10/2016 12:51:00 016 08:59:00 DIS Outpatient RAY PEACOCK R MUD ENGINEER [facility] [id number] 06/03/2016 07:07:00 016 14:25:00 DIS Outpatient GORDO EASTMAN FACC, DEBORA CHAVIRA CC DS [facility] CATH PERIPHERAL ARTERY DISEASE,DM TYPE 2,HTN [id number] 05/20/2016 10:46:00 016 23:59:59 CLS Outpatient RAY PEACOCK R MUD ENGINEER [facility] RAD L97.512,E11.621 ,E11.42 [id number] 05/13/2016 12:31:00 016 00:01:00 DIS Outpatient AYUSH RAY R MUD ENGINEER [facility] [id number] 05/13/2016 13:18:00 016 23:59:59 CLS Outpatient RAY PEACOCK R MUD ENGINEER [facility] LAB NON PRESSURE CH RONIC ULCER OF OTHER PT OF RT FOOT [id number] 04/29/2016 13:17:00 23:59:59 CLS Outpatient TAYO SUTTON DO [facility] RAD BACK PAIN [id number] 04/26/2016 10:52:00 12:55:00 DIS Emergency ERLIN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
[2020-04-06] MEDS ORDERED: MIDAZOLAM 2 MG/2 ML (VERSED) VIAL ONE (13:44)
[2020-04-06] MEDS ORDERED: PROPOFOL INJECTION 50 ML IV ONE (13:44)
[2020-04-06] MEDS ORDERED: fentaNYL INJECTION 100 MCG/2 ML AMP ONE (13:44)
[2020-04-06] MEDS ORDERED: BUPIVACAINE 0.5% 30 ML (SENSORCAINE) VIAL ONE (13:58)
--- NOTE | 2020-04-06 13:58 | Progress Note-Pre Operative ---
Pre-Operative Progress Note H&P Reviewed The H&P was reviewed, patient examined and no changes noted. Date Seen by Provider: Apr 06, 2020 Time Seen by Provider: 13:57 Date H&P Reviewed: Apr 06, 2020 Time H&P Reviewed: 13:57 Pre-Operative Diagnosis: Osteomyelitis, right 3rd toe MARIBEL KIRK DPM Apr 06, 2020 13:57
[2020-04-06] MEDS ORDERED: LIDOCAINE 1% INJ 20 ML 20 ML VIAL ONE (13:59)
[2020-04-06] MEDS ORDERED: ONDANSETRON 4 MG/2 ML (SDV) Z0FRAN ONE (14:57)
[2020-04-06] MEDS ORDERED: SEVOFLURANE (ULTANE) 15 ML INHAL SOLN ONE (15:05)
[2020-04-06] MEDS ORDERED: LACTATED RINGERS 1,000 ML IV SCH (15:12)
--- NOTE | 2020-04-06 15:12 | Progress Note-Post Operative ---
Post-Operative Progess Note Surgeon (s)/Interpreter Deaf (s) Surgeon MARIBEL KIRK DPM Interpreter Deaf: none Pre-Operative Diagnosis Osteomyelitis, right 3rd toe Post-Operative Diagnosis Same Procedure & Operative Findings Date of Procedure 04/06/20 Procedure Performed/Findings Amputation of the right 3rd toe Anesthesia Type General Estimated Blood Loss Estimated blood loss (mL): Minimal Specimens/Packing Specimens Removed Right distal and middle phalanx, head of proximal phalanx, R3 toe MARIBEL KIRK DPM Apr 06, 2020 15:12
[2020-04-06] MEDS ORDERED: MEPERIDINE (DEMEROL) INJ 50 MG/ML IVP ONE (15:15)
[2020-04-06] MEDS ORDERED: CEPH500C PO ×2 (15:15)
[2020-04-06] MEDS ORDERED: HYDR-83 PO ×2 (15:15)
[2020-04-06] MEDS ORDERED: morphine INJ 10 MG/ML 1ML (SYR OR VIAL) IVP ONE (15:15)
[2020-04-06] MEDS ORDERED: HYDROcodone/APAP 5 MG/325 MG (LORTAB) TAB PO PRN (15:15)
[2020-04-06] MEDS ORDERED: ONDANSETRON 4 MG/2 ML (SDV) Z0FRAN IVP PRN (15:15)
--- NOTE | 2020-04-06 15:15 | Anesthesia-General Post-Op ---
General Patient Condition Mental Status/LOC: Same as Preop Cardiovascular: Satisfactory Nausea/Vomiting: Absent Respiratory: Satisfactory Pain: Controlled Complications: Absent Post Op Complications Complications None Follow Up Care/Instructions Patient Instructions None needed. Anesthesia/Patient Condition Patient Condition Patient is doing well, no complaints, stable vital signs, no apparent adverse anesthesia problems. No complications reported per nursing. MARTHA TURPIN CRNA Apr 06, 2020 15:15
--- NOTE | 2020-04-07 02:11 | OPERATIVE REPORT ---
DATE OF SERVICE: 04/06/2020 SURGEON: Tracey Kirk DPM. PREOPERATIVE DIAGNOSIS: Osteomyelitis, right third toe. POSTOPERATIVE DIAGNOSIS: Osteomyelitis, right third toe. PROCEDURE: Amputation of right third toe. WOUND CLASS: Contaminated. ANESTHESIA: General. HEMOSTASIS: Pneumatic ankle tourniquet at 250 mmHg. INDICATIONS: This 64-year-old female presents with chronic wound to the right third toe. X-rays were evaluated recently, which demonstrated osteolysis to the distal phalanx area of the right third digit. We discussed conservative and surgical options at length. The patient is agreeable to surgical intervention after risks and complications were discussed at length. No guarantees were extended to Gayle and she is willing to proceed. DESCRIPTION OF PROCEDURE: The patient was brought back to the operating table, placed in secure supine position. Appropriate timeout was performed. The right third toe was anesthetized utilizing 8 mL of 1:1 mixture of 1% Xylocaine, 0.5% Marcaine injected in a digital and ray block of the right third digit. Next, the ankle tourniquet was placed over the right lower extremity over several layers of padding. The right foot was then prepped and draped in normal sterile manner. The right foot was then elevated, allowed to exsanguinate and the tourniquet inflated to 250 mmHg. Attention was then directed to the right third toe where 2 semi-elliptical incisions were made. The first was from the medial to lateral aspect of the proximal interphalangeal joint area. The second incision began at the same starting point and extended distally and plantarly allowing for a plantar flap to be created. This was done at this juncture as there was devoid of any erythematous changes as opposed to what was seen at the distal tip of the toe. The incision was continued to the lateral aspect of the digit completing the incision down to bone. There was a disarticulation performed at the proximal interphalangeal joint. The distal and middle phalanx were sent for gross and microscopic evaluation after a bone sample was taken for culture and sensitivity from the distal phalanx. The remaining toe was devoid of any necrosis, no purulence. The head of the proximal phalanx was resected with a power sagittal saw and sent for gross and microscopic evaluation as a buffer area. This also allowed for the plantar flap to be articulated with the dorsal aspect of the amputation site with no tension to the skin. The wound was flushed with a power irrigation with 1000 mL of normal saline. The tourniquet was then released and active bleeders cauterized. The wound had a swab culture taken prior to closure to confirm aseptic environment. The wound was then approximated utilizing simple interrupted type stitch with 4-0 Prolene. Excellent coaptation of the skin edges was noted at this time. The plantar flap had appropriate cap refill time. Postoperative dressing consisted of Betadine soaked Adaptic, sterile 4 x 4, sterile Kerlix all secured with a Coban wrap. The patient tolerated the anesthesia and procedure well and was transported from the operating room to the recovery area with vital signs stable and vascular status intact to remaining digits of the right foot. The patient is to follow up in my office in one week period of time or sooner if necessary. In the meantime, she is to have minimal weightbearing with crutches or walker and a surgical splint shoe. Job ID: [id number] DocumentID: [id number] Dictated Date: 04/06/2020 15:21:48 [employer] Manager Date: 04/07/2020 02:10:46 Dictated By: TRACEY KIRK DPM
== END 2020-04-06 16:55 | disposition home or self-care (01) ==
LOC: SDC 12:32
PROVIDERS: ATTEND Podiatrist Foot & Ankle Surgery
DX: M86.9 Osteomyelitis, unspecified (principal); I10 Essential (primary) hypertension; I25.10 Atherosclerotic heart disease of native coronary artery without angina pectoris; E11.51 Type 2 diabetes mellitus with diabetic peripheral angiopathy without gangrene; Z95.5 Presence of coronary angioplasty implant and graft; E11.40 Type 2 diabetes mellitus with diabetic neuropathy, unspecified; K21.9 Gastro-esophageal reflux disease without esophagitis; Z79.02 Long term (current) use of antithrombotics/antiplatelets; Z79.899 Other long term (current) drug therapy; Z79.82 Long term (current) use of aspirin; Z87.891 Personal history of nicotine dependence; Z79.4 Long term (current) use of insulin; Z11.2 Encounter for screening for other bacterial diseases; Z98.51 Tubal ligation status
CPT/HCPCS: 87070; 87075; 87081; 87101; 87205

== ENCOUNTER → 2020-06-11 | Outpatient (CLI) | payer OTHER ==
[~2020-06-11] MED LIST changes: +ASPI-1238 PO; -ASPI-983 PO; +ENAL20TA16 PO; +PANT20TA18 PO; -PANT20TA3 PO
[2020-06-11 09:51] LABS: HEMOGLOBIN 12.3 g/dL (11.5-16.0); MEAN PLATELET VOLUME 9.5 fL (9.0-12.2); WHITE BLOOD COUNT 8.8 10^3/uL (4.3-11.0)
[2020-06-11 09:52] LABS: BILIRUBIN,URINE NEGATIVE (NEGATIVE); CLARITY,URINE CLEAR; COLOR,URINE YELLOW; GLUCOSE, URINE (UA) 3+ (NEGATIVE); KETONES,URINE NEGATIVE (NEGATIVE); LEUKOCYTE ESTERASE ,URINE TRACE (NEGATIVE); NITRITE,URINE POSITIVE (NEGATIVE); PH,URINE 5.5 (5-9); PROTEIN,URINE NEGATIVE (NEGATIVE)
[2020-06-11 09:58] LABS: BACTERIA,URINE MODERATE /HPF; WBC,URINE 25-50 /HPF
[2020-06-11 10:03] LABS: POTASSIUM 5.2 MMOL/L (3.6-5.0)
[2020-06-11 10:04] LABS: CALCIUM 9.5 MG/DL (8.5-10.1)
[2020-06-11 10:06] LABS: TOTAL PROTEIN 7.4 GM/DL (6.4-8.2)
[2020-06-11 10:07] LABS: BILIRUBIN,TOTAL 0.2 MG/DL (0.1-1.0)
[2020-06-11 10:09] LABS: CREATININE SERUM 1.5 MG/DL (0.60-1.30)
== END ==
LOC: LAB 09:20
PROVIDERS: ATTEND Family Medicine
DX: E11.9 Type 2 diabetes mellitus without complications (principal); N39.0 Urinary tract infection, site not specified
CPT/HCPCS: 36415; 80053; 80061; 81000; 83036; 85027; 87077; 87088

== ENCOUNTER → 2020-06-15 | Outpatient (CLI) | payer OTHER ==
--- NOTE | 2020-06-15 08:38 | Diagnostic Imaging Report ---
PROCEDURE: CT abdomen and pelvis without contrast. TECHNIQUE: Multiple contiguous axial images were obtained through the abdomen and pelvis without the use of intravenous contrast. Auto Exposure Controls were utilized during the CT exam to meet ALARA standards for radiation dose reduction. INDICATION: Mid and left-sided abdominal pain. Correlation is made with prior CT from 06/07/2013. The lung bases are clear. A low-density lesion right lobe of the liver posteriorly appears stable. No other liver lesions are detected. Gallbladder is unremarkable. No biliary ductal dilatation is seen. Pancreas and spleen are unremarkable. A small right adrenal nodule appears stable compared to prior exam. Left adrenal gland is unremarkable. Renal vascular calcifications are noted. There is no evidence of nephrolithiasis or hydronephrosis. Aorta is non-aneurysmal. The bowel loops appear to be nonobstructed. No free fluid or fluid collection is identified. There is moderate stool in the colon. Uterus is unremarkable. Bladder is unremarkable. No abdominal or pelvic lymphadenopathy is identified. The bony structures are nonacute. IMPRESSION: 1. Essentially unremarkable noncontrast CT of the abdomen and pelvis apart from moderate stool in the colon, perhaps owing to constipation. No acute abnormality is detected. Dictated by: Dictated on workstation # [id number]
== END ==
LOC: RAD 08:15
PROVIDERS: ATTEND Family Medicine
DX: R10.9 Unspecified abdominal pain (principal); R19.5 Other fecal abnormalities
CPT/HCPCS: 74176

== ENCOUNTER 2020-09-06 01:34 | Inpatient (IN) | payer OTHER ==
[~2020-09-06] VITALS: Ht 152.4 cm; Wt 96.3 kg
[2020-09-06] VITALS (10 sets, daily range): BP systolic 141–198; BP diastolic 62–78
[~2020-09-06 01:34] MED LIST changes: +AMLO-251 PO; -AMLO10TA7 PO
[2020-09-06] MEDS ORDERED: NS IV 1000 ML 1,000 ML IV SCH (02:00)
[2020-09-06] MEDS ORDERED: NS IV 1000 ML 1,000 ML IV ONE (02:00)
[2020-09-06] MEDS ORDERED: VANCOMYCIN INJECTION 1,000 MG in NS (IVPB) 250 ML IV ONE (02:00)
[2020-09-06] MEDS ORDERED: ACETAMINOPHEN 500 MG TAB (TYLENOL) PO PRN (02:00)
[2020-09-06] MEDS ORDERED: CEFEPIME INJECTION 1,000 MG in WATER (STERILE) FOR INJECTION 10 ML IV ONE (02:00)
--- NOTE | 2020-09-06 02:00 | ED General ---
General Chief Complaint: Fever-Adult/Adol Stated Complaint: KETOACIDOSIS,FEVER Nursing Triage Note: fever s/p right foot debridment 09/05, + ketones, high glucose. Nursing Sepsis Screen: No Definite Risk Source of Information: Patient Exam Limitations: No Limitations History of Present Illness Date Seen by Provider: Sep 06, 2020 Time Seen by Provider: 01:23 Initial Comments Patient presents to the ER by EMS from home with chief complaint she is had a fall earlier today which she says she just slipped off of the sofa. She says most recently she is slipped out of bed but did not strike her head nor lose consciousness. She is felt weak and tired and apparently had a fever all day today. She is not had cough shortness of air. She only has pain in her left ribs anteriorly which she says she has had for over a year and it has been extensively worked up by her primary care doctor, Dr. Sutton. She also has some peripheral neuropathy and took an extra tablet of gabapentin which she says may have contributed to her feeling weak. She does have a diabetic ulcer on her right ball of her foot which is being treated by Dr. Kirk, podiatry. He did a debridement a day ago on the and she feels is a little more red than before. She is not having any nausea dysuria diarrhea constipation loss of sen se of taste or smell nor has she had any sick contacts. She is known to Dr. Msitry for cardiology and Dr. Sutton for primary care. Allergies and Home Medications Allergies Coded Allergies: No Known Drug Allergies (Unverified , 04/02/20) Home Medications Albuterol/Ipratropium 4 Gm Aero, 1 PUFF IH QID PRN for SHORTNESS OF BREATH, (Reported) Aspirin 81 Mg Tab.chew, 81 MG PO DAILY, (Reported) Atorvastatin Calcium 40 Mg Tablet, 40 MG PO HS, (Reported) Bacillus Coagulans 1 Each Tab.chew, 2 TAB.CHEW PO DAILY, (Reported) Cephalexin 500 Mg Capsule, 1 CAP PO TID Prescribed by: MARIBEL KIRK on 04/06/20 1515 Clopidogrel Bisulfate 75 Mg Tablet, 75 MG PO DAILY, (Reported) Enalapril Maleate 20 Mg Tablet, 20 MG PO BID, (Reported) Furosemide 40 Mg Tablet, 40 MG PO DAILY Prescribed by: ANGELY ANNA on 08/18/19 1410 Gabapentin 300 Mg Capsule, 300 MG PO TID, (Reported) Glimepiride 4 Mg Tablet, 8 MG PO DAILY, (Reported) TAKES 2 (4 MG) TABLETS Hydralazine HCl 50 Mg Tablet, 50 MG PO 0800,1500,2100, (Reported) Hydrocodone/Acetaminophen 1 Each Tablet, 1 EACH PO Q4H PRN for PAIN-MODERATE (5- 7) Prescribed by: MARIBEL KIRK on 04/06/20 1515 Ibuprofen 200 Mg Tablet, 400 MG PO TID PRN for PAIN-MILD (1-4), (Reported) Insulin Aspart 300 Units/3 Ml Solution, UNITS SC BID WITH MEALS, (Reported) USE 12 UNITS THEN RE CHECK BLOOD SUGAR IN 30 MINUTES AND GIVE ADDITIONAL 10 UNITS IF BLOOD SUGAR > 200 Insulin Degludec 100 Unit/1 Ml Insuln.pen, 32 UNITS SC HS, (Reported) Metoprolol Succinate 200 Mg Tab.er.24h, 200 MG PO DAILY, (Reported) Pantoprazole Sodium 20 Mg Tablet.dr, 20 MG PO DAILY, (Reported) Tramadol HCl 50 Mg Tablet, 50 MG PO HS, (Reported) Patient Home Medication List Home Medication List Reviewed: Yes Review of Systems Review of Systems Constitutional: chills; No diaphoresis; fever, malaise, weakness EENTM: No ear discharge, No ear pain Respiratory: No cough, No short of breath Cardiovascular: No edema, No Hx of Intervention, No palpitations Gastrointestinal: No abdominal pain, No constipation, No diarrhea Genitourinary: No decreased output, No dysuria, No hematuria : No Musculoskeletal: see HPI; No back pain, No joint pain All Other Systems Reviewed Negative Unless Noted: Yes Past Qigtrog-Gqxdyn-Qinufj Hx Patient Social History Alcohol Use: Denies Use Recreational Drug Use: No Smoking Status: Former Smoker Type Used: Cigarettes Former Smoker, Quit: Apr 27, 1990 2nd Hand Smoke Exposure: Yes Recent Foreign Travel: No Contact w/Someone Who Travel: No Recent Infectious Disease Expo: No Recent Hopitalizations: Yes (right foot debridment 09/05/20) Immunizations Up To Date Tetanus Booster (TDap): Unknown PED Vaccines UTD: No Date of Pneumonia Vaccine: Oct 15, 2018 Date of Influenza Vaccine: Jun 14, 2019 Seasonal Allergies Seasonal Allergies: No Past Medical History Surgeries: Yes (right leg vein sx , cardiac stent , FOOT SURGERY) Coronary Stent, Tubal Ligation Respiratory: No Currently Using CPAP: No Currently Using BIPAP: No Cardiac: Yes (STENTS) Coronary Artery Disease, Hypertension, Peripheral Vascular Neurological: Yes Neuropathy : No 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 Disorders: No Female 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 Disorders: 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 Sexually Transmitted Disease: No HIV/AIDS: No Genitourinary: Yes UTI-Chronic Gastrointestinal: Yes Gastroesophageal Reflux Musculoskeletal: Yes Fibromyalgia Endocrine: Yes Diabetes, Insulin dep HEENT: No (GLASSES) Loss of Vision: Denies Hearing Impairment: Denies Cancer: No Psychosocial: No Integumentary: Yes (diabetic ulcer right foot) Blood Disorders: No Adverse Reaction/Blood Tranf: No (N/A) Family Medical History Cardiovascular disease 19 MOTHER, G8 BROTHER G8 BROTHER Completed stroke 19 MOTHER, Diabetes mellitus 19 FATHER, 19 MOTHER, G8 BROTHER G8 SISTER FH: brain tumor FH: breast cancer 19 MOTHER, FH: lung cancer FHx: peripheral neuropathy Hypertension 19 FATHER, Lung c 19 FATHER, Myocardial infarction 19 MOTHER, Neuro No Pertinent Family Hx, Hypertension Physical Exam-Suspected Sepsis Physical Exam Vital Signs Vital Signs - First Documented 09/06/20 01:40 Temp 38.9 Pulse 77 Resp 18 B/P (MAP) 189/73 (111) Pulse Ox 95 O2 Delivery Room Air Capillary Refill : Less Than 3 Seconds Blood Pressure Mean: 111 Height, Weight, BMI Height: 5'5.50" Weight: 195lbs. 0.0oz. 88.872952gl; 33.00 BMI Method:Stated General Appearance: WD/WN, Mild Distress Eyes: Bilateral Eye Normal Inspection, Bilateral Eye PERRL, Bilateral Eye EOMI HEENT: PERRL/EOMI, TMs Normal, Normal ENT Inspection, Pharynx Normal; No Moist Mucous Membranes Neck: Full Range of Motion, Normal Inspection, Non Tender Respiratory: Lungs Clear, Normal Breath Sounds, No Accessory Muscle Use, No Respiratory Distress Cardiovascular: Regular Rate, Rhythm, No Edema, Normal Peripheral Pulses Gastrointestinal: Normal Bowel Sounds, Non Tender, Soft Extremity: Normal Capillary Refill, Normal Range of Motion, Non Tender, No Pedal Edema, Other (Mild erythema around the base of a old chronic wound.) Neurologic/Psychiatric: Alert, Oriented x3 Skin: warm/dry, other (Erythema around the 2.5 cm diameter chronic pressure ulc er on her right foot extending over the metatarsals dorsally) Focused Exam Lactate Level 09/06/20 01:50: Lactic Acid Level 1.49 Lactic Acid Level Laboratory Tests Test 09/06/20 01:50 Lactic Acid Level 1.49 MMOL/L (0.50-2.00) Progress/Results/Core Measures Suspected Sepsis Recent Fever Within 48 Hours: Yes Infection Criteria Present: Documented Infection New/Unexplained Altered Menta: No Sepsis Screen: No Definite Risk SIRS Temperature: Pulse: 77 Respiratory Rate: 18 Laboratory Tests 09/06/20 01:50: White Blood Count 12.5H Blood Pressure 189 /73 Mean: 111 09/06/20 01:50: Lactic Acid Level 1.49 Laboratory Tests 09/06/20 01:50: Creatinine 0.92, INR Comment 1.1, Platelet Count 218, Total Bilirubin 0.4 Results/Orders Lab Results Laboratory Tests Test 09/06/20 01:50 Range/Units White Blood Count 12.5 H 4.3-11.0 10^3/uL Red Blood Count 3.87 3.80-5.11 10^6/uL Hemoglobin 11.6 11.5-16.0 g/dL Hematocrit 35 35-52 % Mean Corpuscular Volume 91 80-99 fL Mean Corpuscular Hemoglobin 30 25-34 pg Mean Corpuscular Hemoglobin Concent 33 32-36 g/dL Red Cell Distribution Width 13.0 10.0-14.5 % Platelet Count 218 130-400 10^3/uL Mean Platelet Volume 10.2 9.0-12.2 fL Immature Granulocyte % (Auto) 1 % Neutrophils (%) (Auto) 78 H 42-75 % Lymphocytes (%) (Auto) 11 L 12-44 % Monocytes (%) (Auto) 9 0-12 % Eosinophils (%) (Auto) 0 0-10 % Basophils (%) (Auto) 0 0-10 % Neutrophils # (Auto) 9.8 H 1.8-7.8 10^3/uL Lymphocytes # (Auto) 1.4 1.0-4.0 10^3/uL Monocytes # (Auto) 1.2 H 0.0-1.0 10^3/uL Eosinophils # (Auto) 0.0 0.0-0.3 10^3/uL Basophils # (Auto) 0.0 0.0-0.1 10^3/uL Immature Granulocyte # (Auto) 0.1 0.0-0.1 10^3/uL Prothrombin Time 14.6 12.2-14.7 SEC INR Comment 1.1 0.8-1.4 Activated Partial Thromboplast Time 44 H 24-35 SEC Urine Color YELLOW Urine Clarity CLEAR Urine pH 5.5 5-9 Urine Specific [place] 1.025 H 1.016-1.022 Urine Protein 2+ H NEGATIVE Urine Glucose (UA) 3+ H NEGATIVE Urine Ketones NEGATIVE NEGATIVE Urine Nitrite POSITIVE H NEGATIVE Urine Bilirubin NEGATIVE NEGATIVE Urine Urobilinogen 0.2 < = 1.0 MG/DL Urine Leukocyte Esterase NEGATIVE NEGATIVE Urine RBC (Auto) 1+ H NEGATIVE Urine RBC NONE /HPF Urine WBC 5-10 H /HPF Urine Squamous Epithelial Cells 2-5 /HPF Urine Crystals NONE /LPF Urine Bacteria LARGE H /HPF Urine Casts NONE /LPF Urine Mucus NEGATIVE /LPF Urine Culture Indicated CULTURE PENDING Sodium Level 130 L 135-145 MMOL/L Potassium Level 3.9 3.6-5.0 MMOL/L Chloride Level 98 98-107 MMOL/L Carbon Dioxide Level 20 L 21-32 MMOL/L Anion Gap 12 5-14 MMOL/L Blood Urea Nitrogen 19 H 7-18 MG/DL Creatinine 0.92 0.60-1.30 MG/DL Estimat Glomerular Filtration Rate > 60 BUN/Creatinine Ratio 21 Glucose Level 351 H 70-105 MG/DL Lactic Acid Level 1.49 0.50-2.00 MMOL/L Calcium Level 9.2 8.5-10.1 MG/DL Corrected Calcium 9.6 8.5-10.1 MG/DL Magnesium Level 2.1 1.6-2.4 MG/DL Total Bilirubin 0.4 0.1-1.0 MG/DL Aspartate Amino Transf (AST/SGOT) 11 5-34 U/L Alanine Aminotransferase (ALT/SGPT) 14 0-55 U/L Alkaline Phosphatase 98 40-136 U/L Total Protein 6.9 6.4-8.2 GM/DL Albumin 3.5 3.2-4.5 GM/DL Coronavirus 2019 ([facility]) Negative Negative Micro Results Microbiology 09/06/20 Influenza Types A,B Antigen ([facility]) - Final, Complete My Orders Orders - HIRAM COELHO 19 Inhouse Test (09/06/20 01:48) Influenza A And B Antigens (09/06/20 01:48) Cbc With Automated Diff (09/06/20 01:48) Comprehensive Metabolic Panel (09/06/20 01:48) Blood Culture (09/06/20 01:48) Sputum Culture (09/06/20 01:48) Urinalysis (09/06/20 01:48) Urine Culture (09/06/20 01:48) Protime With Inr (09/06/20 01:48) Partial Thromboplastin Time (09/06/20 01:48) Chest 1 View, Ap/Pa Only (09/06/20 01:48) Acetaminophen Tablet (Tylenol Tablet) (09/06/20 02:00) Ed Iv/Invasive Line Start (09/06/20 01:48) Ed Iv/Invasive Line Start (09/06/20 01:48) Vital Signs Adult Sepsis Patie Q15M (09/06/20 01:48) O2 (09/06/20 01:48) Remove Rings In Anticipation O (09/06/20 01:48) Lactic Acid Analyzer (09/06/20 01:48) Ns Iv 1000 Ml (Sodium Chloride 0.9%) (09/06/20 02:00) Cefepime Injection (Maxipime Injection) (09/06/20 02:00) Vancomycin Injection (Vancomycin Injecti (09/06/20 02:00) Vancomycin Injection (Vancomycin Injecti (09/06/20 03:00) Ed Iv/Invasive Line Start (09/06/20 01:48) Ns Iv 1000 Ml (Sodium Chloride 0.9%) (09/06/20 02:00) Magnesium (09/06/20 01:53) Insulin (Regular) Human (Novolin R (Per (09/06/20 02:45) Diphenhydramine Injection (Benadryl Inje (09/06/20 02:45) Famotidine Injection (Pepcid Injection) (09/06/20 02:45) Diphenhydramine Injection (Benadryl Inje (09/06/20 02:40) Famotidine Injection (Pepcid Injection) (09/06/20 02:40) Catheter(Urinary) Insert & Ass 03,15 (09/06/20 03:14) Medications Given in ED Current Medications Medications Dose Ordered Sig/[place] Route Start Time Stop Time Status Last Admin Dose Admin Acetaminophen 1,000 mg ONCE PRN PO 09/06/20 02:00 09/06/20 02:26 DC 09/06/20 02:24 1,000 MG Cefepime HCl 1000 mg/Sterile Water 10 ml @ 200 mls/hr ONCE ONCE IV 09/06/20 02:00 09/06/20 02:02 DC 09/06/20 02:23 200 MLS/HR Diphenhydramine HCl 25 mg ONCE ONCE IVP 09/06/20 02:45 09/06/20 02:46 DC 09/06/20 02:45 25 MG Famotidine 20 mg ONCE ONCE IVP 09/06/20 02:45 09/06/20 02:46 DC 09/06/20 02:45 20 MG Sodium Chloride 1,000 ml @ 0 mls/hr Q0M ONCE IV 09/06/20 02:00 09/06/20 02:01 DC 09/06/20 02:25 999 MLS/HR Vancomycin HCl 750 mg/Sodium Chloride 250 ml @ 250 mls/hr ONCE ONCE IV 09/06/20 03:00 09/06/20 03:59 09/06/20 02:25 250 MLS/HR Vancomycin HCl 1000 mg/Sodium Chloride 250 ml @ 250 mls/hr ONCE ONCE IV 09/06/20 02:00 09/06/20 02:59 DC 09/06/20 02:24 250 MLS/HR Vital Signs/I&O 09/06/20 09/06/20 01:40 02:24 Temp 38.9 38.9 Pulse 77 Resp 18 B/P (MAP) 189/73 (111) Pulse Ox 95 O2 Delivery Room Air Capillary Refill : Less Than 3 Seconds Blood Pressure Mean: 111 Progress Note #1: Time: 02:00 Progress Note Septic work-up. We are suspecting COVID-19 versus wound infection versus UTI etc. Her family says that her urine had ketones in it so we are suspicious for diabetic ketoacidosis. 300+ blood sugar per EMS. We're going to give her 2 L of fluids to start which which would be about 20 mL/kg based on weight of 92 kg. A gram of Tylenol for her fever. Influenza swab. Broad-spectrum antibiotic coverage. Progress Note #2: Time: 03:33 Progress Note Soon after starting the vancomycin the patient felt itching and had mild redness but no significant rash. Vancomycin was slowed down and she was given some Pepcid and Benadryl. Her itching went away. 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 Diagnostic Imaging Diagonstic Imaging: Xray Plain Films/CT/US/NM/MRI: chest Comments Cardiomegaly but no acute cardiopulmonary process. Reviewed: Reviewed by Me Departure Communication (Admissions) Time/Spoke to Admitting Phy: 03:15 Discussed the case with Dr. Curtis and she agrees to admit the patient to the floor. She agrees with antibiotic selection. Impression Primary Impression: UTI (urinary tract infection) Qualified Codes: N30.00 - Acute cystitis without hematuria Additional Impressions: Sepsis Qualified Codes: O85 - Puerperal sepsis Diabetic foot ulcer Qualified Codes: E11.621 - Type 2 diabetes mellitus with foot ulcer; L97.412 - Non-pressure chronic ulcer of right heel and midfoot with fat layer exposed Disposition: ADMITTED INPATIENT Condition: Stable Admissions Decision to Admit Reason: Admit from ER (General) Decision to Admit/Date: Sep 06, 2020 Time/Decision to Admit Time: 02:56 Departure-Patient Inst. Referrals: TAYO SUTTON DO (PCP/Family) Primary Care Physician HIRAM COELHO Sep 06, 2020 01:59
[2020-09-06 02:11] LABS: BASOPHILS % (AUTO) 0 % (0-10); BILIRUBIN,URINE NEGATIVE (NEGATIVE); CLARITY,URINE CLEAR; COLOR,URINE YELLOW; EOSINOPHILS % (AUTO) 0 % (0-10); GLUCOSE, URINE (UA) 3+ (NEGATIVE); HEMATOCRIT 35 % (35-52); HEMOGLOBIN 11.6 g/dL (11.5-16.0); KETONES,URINE NEGATIVE (NEGATIVE); LEUKOCYTE ESTERASE ,URINE NEGATIVE (NEGATIVE); LYMPHOCYTES # (AUTO) 1.4 10^3/uL (1.0-4.0); LYMPHOCYTES % (AUTO) 11 % (12-44); MEAN CORPUSCULAR HEMOGLOBIN 30 pg (25-34); MEAN CORPUSCULAR HGB CONC 33 g/dL (32-36); MEAN CORPUSCULAR VOLUME 91 fL (80-99); MEAN PLATELET VOLUME 10.2 fL (9.0-12.2); MONOCYTES # (AUTO) 1.2 10^3/uL (0.0-1.0); MONOCYTES % (AUTO) 9 % (0-12); NEUTROPHILS # (AUTO) 9.8 10^3/uL (1.8-7.8); NEUTROPHILS % (AUTO) 78 % (42-75); NITRITE,URINE POSITIVE (NEGATIVE); PH,URINE 5.5 (5-9); PLATELET COUNT 218 10^3/uL (130-400); PROTEIN,URINE 2+ (NEGATIVE); WHITE BLOOD COUNT 12.5 10^3/uL (4.3-11.0)
[2020-09-06 02:20] LABS: BACTERIA,URINE LARGE /HPF
[2020-09-06 02:23] LABS: ALBUMIN 3.5 GM/DL (3.2-4.5); CHLORIDE 98 MMOL/L (98-107); POTASSIUM 3.9 MMOL/L (3.6-5.0); SODIUM 130 MMOL/L (135-145)
[2020-09-06 02:24] LABS: CALCIUM 9.2 MG/DL (8.5-10.1); INR 1.1 (0.8-1.4); PROTHROMBIN TIME PATIENT 14.6 SEC (12.2-14.7)
[2020-09-06 02:25] LABS: GLUCOSE 351 MG/DL (70-105); TOTAL PROTEIN 6.9 GM/DL (6.4-8.2)
[2020-09-06 02:27] LABS: BILIRUBIN,TOTAL 0.4 MG/DL (0.1-1.0); CARBON DIOXIDE 20 MMOL/L (21-32)
[2020-09-06 02:29] LABS: ALKALINE PHOSPHATASE 98 U/L (40-136); CREATININE SERUM 0.92 MG/DL (0.60-1.30); GFR ESTIMATED > 60
[2020-09-06 02:30] LABS: BUN/CREATININE RATIO 21
[2020-09-06 02:32] LABS: ALANINE AMINOTRANSFERASE 14 U/L (0-55); MAGNESIUM 2.1 MG/DL (1.6-2.4)
[2020-09-06] MEDS ORDERED: FAMOTIDINE 20MG/2ML IV (PEPCID) ONE (02:40)
[2020-09-06] MEDS ORDERED: diphenhydrAMINE 50 MG/ML INJ (BENADRYL) ONE (02:40)
[2020-09-06] MEDS ORDERED: inSUlin (REGULAR) HUMAN 1 UNIT/0.01 ML (CHARGE PER UNIT) SC ONE (02:45)
[2020-09-06] MEDS ORDERED: FAMOTIDINE 20MG/2ML IV (PEPCID) IVP ONE (02:45)
[2020-09-06] MEDS ORDERED: diphenhydrAMINE 50 MG/ML INJ (BENADRYL) IVP ONE (02:45)
[2020-09-06] MEDS ORDERED: VANCOMYCIN INJECTION 750 MG in NS (IVPB) 250 ML IV ONE (03:00)
[2020-09-06] MEDS ORDERED: GABAPENTIN 300 MG (NEURONTIN) CAP PO ONE (03:45)
[2020-09-06] MEDS ORDERED: ONDANSETRON 4 MG/2 ML (SDV) Z0FRAN IVP PRN (04:30)
[2020-09-06] MEDS ORDERED: ACETAMINOPHEN 650 MG SUPP (TYLENOL) PR PRN (04:30)
[2020-09-06] MEDS ORDERED: ANTACID SUSP 30 ML UDC (MYLANTA) PO PRN (04:30)
[2020-09-06] MEDS: NS IV 1000 ML 1,000 ML IV SCH ×4 (04:37→23:37)
--- NOTE | 2020-09-06 04:38 | NUR ---
BRYSON ROBB admitted to room 414-1, with an admitting diagnosis of sepsis, uti, diabetic foot ulcer, on 09/06/20 from ed via stretcher, accompanied by staff.BRYSON ROBB introduced to surroundings, call light, bed controls, phone, TV, temperature control, lights, meal times, smoking policy, visitor policy, side rail policy, bathrooms and showers. Patient Rights given to patient in the handbook.BRYSON ROBB verbalizes understanding that [facility] is not responsible for the loss or damage to any personal effects or valuables that are kept in the patients posession during their hospitalization.
[2020-09-06] MEDS: CEFEPIME 1,000 MG/SWFI 10 ML IV PUSH IV SCH ×6 (05:52→19:14)
[2020-09-06] MEDS ORDERED: inSUlin ASPART (NovoLOG) 1 UNIT/0.01 ML (CHARGE PER UNIT) SC SCH ×3 (06:00→07:45)
--- NOTE | 2020-09-06 06:51 | Diagnostic Imaging Report ---
Indication: Sepsis Portable chest 3:17 AM Heart size and pulmonary vascularity are normal. Lungs are clear. There are no effusions or pneumothoraces. IMPRESSION: Negative chest Dictated by: Dictated on workstation # [id number]
[2020-09-06] MEDS: PANTOPRAZOLE 40 MG (PROTONIX) TAB PO SCH (07:58)
[2020-09-06] MEDS ORDERED: ASPIRIN E.C. 81 MG (ECOTRIN) TAB PO SCH (09:00)
[2020-09-06] MEDS ORDERED: GABAPENTIN 300 MG (NEURONTIN) CAP PO SCH ×2 (09:00→21:00)
[2020-09-06] MEDS ORDERED: ZINC50TA58 PO (10:02)
[2020-09-06] MEDS ORDERED: CALC300T4 PO (10:02)
[2020-09-06] MEDS ORDERED: FURO40TA4 PO (10:02)
[2020-09-06] MEDS ORDERED: INSU100V42 SC (10:02)
[2020-09-06] MEDS ORDERED: DOCU-238 PO (10:02)
[2020-09-06] MEDS ORDERED: L.AC1CAP6 PO (10:02)
--- NOTE | 2020-09-06 10:04 | NUR ---
SPOKE WITH THE PT AND WENT THRU THE EXT MED HISTORY TO COMPLETE THE MED REC PT COULD NOT REMEMBER THE NAMES OF HER MEDICATIONS HOWEVER WHEN I NAMED THEM USING THE EXT MED HISTORY THE PT COULD TELL ME HOW/WHEN SHE TAKES EACH. HER INFORMATION MATCHED THE EXT MED HISTORY PANTOPRAZOLE 20MG WAS LAST FILLED 03-12-2020 #90/90DS-ACCORDING TO THE PT SHE DOES TAKES EVERY DAY, I DID DOCUMENT THE PAST DUE FILL ON THE MED REC OTC MEDS: ZINC ASPIRIN 81MG PROBIOTIC STOOL SOFTENER WANDA
[2020-09-06] MEDS: ENOXAPARIN 40 MG/0.4 ML (LOVENOX) SYR SC SCH ×2 (11:34→21:38)
[2020-09-06] MEDS: inSUlin ASPART (NovoLOG) 1 UNIT/0.01 ML (CHARGE PER UNIT) SC SCH ×5 (11:37→19:56)
--- NOTE | 2020-09-06 12:03 | Physical Therapy Evaluation ---
PT Evaluation-General Medical Diagnosis Admission Date Sep 06, 2020 at 03:20 Medical Diagnosis: right diabetic foot ulcer Onset Date: Sep 02, 2020 Therapy Diagnosis Therapy Diagnosis: debility Height/Weight Height (Feet): 5 Height (Inches): 5.50 Weight (Pounds): 195 Weight (Ounces): 0.0 Precautions Precautions/Isolations: Fall Prevention, Standard Precautions Weight Bear Status Right Lower Extremity: Right Partial Weight Bearing Left Lower Extremity: Left Full Weight Bearing Referral Physician: Diana Reason for Referral: Evaluation/Treatment Medical History Pertinent Medical History: DM, HTN, Neuropathy, PVD Current History admit for IV antibiotics Reviewed History: Yes Social History Home: Single Level Current Living Status: Spouse Prior Prior Level of Function SCALE: Activities may be completed with or without assistive devices. 8-Idaciyikmg-oncnzev completes the activity by him/herself with no assistance from a helper. 5-Set-up or Clean-up Assistance-helper sets up or cleans up; patient completes activity. Benton assists only prior to or following the activity. 4-Supervision or Touching Assistance-helper provides verbal cues and/or touching/steadying and/or contact guard assistance as patient completes activity. Assistance may be provided throughout the activity or intermittently. 3-Partial/Moderate Assistance-helper does LESS THAN HALF the effort. Benton lifts, holds or supports trunk or limbs, but provides less than half the effort. 2-Substantial/Maximal Assistance-helper does MORE THAN HALF the effort. Benton lifts or holds trunk or limbs and provides more than half the effort. 5-Hzffevxrv-qgnspm does ALL the effort. Patient does none of the effort to complete the activity. Or, the assistance of 2 or more helpers is required for the patient to complete the activity. If activity was not attempted, code reason: 7-Patient Refused. 9-Not Applicable-not attempted and the patient did not perform the activity before the current illness, exacerbation or injury. 10-Not Attempted due to Environmental Limitations-(lack of equipment, weather restraints, etc.). 88-Not Attempted due to Medical Conditions or Safety Concerns. Bed Mobility: 6 Transfers (B,C,W/C): 6 Gait: 6 Stairs: 6 Indoor Mobility (Ambulation): Independent Stairs: Independent Prior Devices Use: Other-see list below cane PT Evaluation-Current Subjective Patient agrees to PT. She reports she can ambulate short distances on right heel only. Objective Patient Orientation: Normal For Age Attachments: Serrano Catheter, IV ROM/Strength ROM Lower Extremities bilateral LE WFL Strength Lower Extremities 4/5 grossly bilateral LE Integumentary/Posture Integumentary refer to nursing notes Bladder Incontinence: Serrano Cath Posture WFL Neuromuscular (Tone, Coordination, Reflexes) grossly intact Sensory Vision: Functional Hearing: Functional Sensation Right Lower Extremit: Impaired Sensation Left Lower Extremity: Impaired Transfers Roll Left to Right (QC): 4 Sit to Lying (QC): 4 Lying to Sitting/Side of Bed(Q: 4 Sit to Stand (QC): 4 Chair/Xnq-gh-Pjaiu Xfer(QC): 4 Gait Does the Patient Walk?: Yes Mode of Locomotion: Walk Anticipated Mode of Locomotion: Walk Walk 10 feet (QC): 4 Walk 50 ft with 2 Turns(QC): 4 Gait Assistive Device: FWW Comments/Gait Description noncompliant with heel contact Balance Sitting Static: Normal Sitting Dynamic: Normal Standing Static: Normal Standing Dynamic: Normal Assessment/Needs 65 y.o. female, will benefit from short term skilled PT to address functional strength and mobility to improve current LOF to safely return to home with spouse at maximum LOF. Patient is heel contact right foot only. Rehab Potential: Fair PT Chrome Worker Goals Senior Living Goals PT Chrome Worker Goals Time Frame: Sep 15, 2020 Roll Left & Right (QC): 6 Sit to Lying (QC): 6 Lying-Sitting on Side/Bed(QC): 6 Sit to Stand (QC): 6 Chair/Ymr-mv-Xltcm Xfer(QC): 6 Toilet Transfer (QC): 6 Does the Patient Walk: Yes Walk 10 feet (QC): 6 Walk 50ft with 2 Turns (QC): 6 PT Plan Problem List Problem List: Activity Tolerance Treatment/Plan Treatment Plan: Continue Plan of Care Treatment Plan: Education, Functional Activity Key, Functional Strength, Gait, Safety, Therapeutic Exercise, Transfers Treatment Duration: Sep 15, 2020 Frequency: 5 times per week Estimated Hrs Per Day: .25 hour per day Patient and/or Family Agrees t: Yes Time/GCodes Time In: 1140 Time Out: 1150 Total Billed Treatment Time: 10 Total Billed Treatment 1 visit EVLow 10 min ALAN RAMOS PT Sep 06, 2020 12:02
--- NOTE | 2020-09-06 12:30 | NUR ---
PT BP 182/73. HOME MEDICATIONS HAVE BEEN REVIEWED BY OIL PIPELINE DISPATCHER, DR RAMSEY NOTIFIED AND WILL ADDRESS
--- NOTE | 2020-09-06 12:36 | NUR ---
PT CHANGED TO PUI ISOLATION PER PROTOCOL. PT HAD RAPID COVID TEST DONE IN ED, RESULTS WERE NEGATIVE. COVID SEND OFF PENDING THAT WAS DONE IN ED. PER INFECTIONS CONTROL RN PT HAS TO BE IN PUI/COVID ISOLATION UNTIL RESULTS ARE BACK. DR RAMSEY NOTIFIED. ORDER PLACED IN EMAR
[2020-09-06] MEDS ORDERED: ONDANSETRON 4 MG (ZOFRAN) ORAL DISSOLVE TAB PO PRN (13:15)
[2020-09-06] MEDS ORDERED: diphenhydrAMINE 25 MG TAB (BENADRYL) PO PRN (13:15)
[2020-09-06] MEDS ORDERED: polyethylene glycoL POWDER 17 GM (MIRALAX) PACK PO PRN (13:15)
[2020-09-06] MEDS ORDERED: MELATONIN 3 MG TABLET PO PRN (13:15)
[2020-09-06] MEDS ORDERED: ONDANSETRON 4 MG/2 ML (SDV) Z0FRAN IV PRN (13:15)
--- NOTE | 2020-09-06 13:21 | History & Physical-Hospitalist ---
History of Present Illness HPI/Chief Complaint Rhoda Ray is a a 65-year-old female with past medical history of hypertension, hyperlipidemia, GERD, type II diabetes mellitus, who presented with a fall. She has apparently been feeling weak. She did not hit her head. She did not lose consciousness. She has been having fevers. She reports having issues with recurrent urinary tract infections. She reports lower abdominal pain. She denies any nausea or vomiting. She denies any shortness of breath or cough. She denies any chest pain. She has a chronic right foot wound and follows with Dr. Sarmiento. He debrided this just a couple days ago. Source: patient Date Seen 09/06/20 Time Seen by a Provider: 10:00 Attending Physician Bobbi Curtis MD PCP Nino Bernabe DO Referring Physician Date of Admission Sep 06, 2020 at 03:20 Home Medications & Allergies Home Medications Reviewed patient Home Medication Reconciliation performed by pharmacy medication reconciliations kennel technician and/or nursing. Patients Allergies have been reviewed. Allergies Allergies Coded Allergies No Known Drug Allergies (Unverified04/02/20) Past Ahtrwtd-Zemwhm-Uyidvy Hx Past Med/Social Hx: Reviewed Nursing Past Med/Soc Hx Patient Social History Alcohol Use: Denies Use Recreational Drug Use: No Smoking Status: Former Smoker Former Smoker, Quit: Apr 27, 1990 Type Used: Cigarettes 2nd Hand Smoke Exposure: Yes Recent Foreign Travel: No Contact w/other who traveled: No Recent Hopitalizations: Yes (right foot debridment 09/05/20) Recent Infectious Disease Expo: No Immunizations Up To Date Tetanus Booster (TDap): Unknown Pediatric: No Date of Pneumonia Vaccine: Oct 15, 2018 Date of Influenza Vaccine: Jun 14, 2019 Seasonal Allergies Seasonal Allergies: No Past Medical History Surgeries: Coronary Stent, Tubal Ligation Respiratory: Pneumonia Currently Using CPAP: No Currently Using BIPAP: No Cardiac: Coronary Artery Disease, Hypertension, Peripheral Vascular Neurological: Neuropathy : No 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: No Sexually Transmitted Disease: No HIV/AIDS: No Female 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 Disorders: Denies Menopausal Genitourinary: UTI-Chronic Gastrointestinal: Gastroesophageal Reflux Musculoskeletal: Fibromyalgia Endocrine: Diabetes, Insulin dep Loss of Vision: Denies Hearing Impairment: Denies History of Blood Disorders: No Adverse Reaction to Blood Merritt: No (N/A) Family History Cardiovascular disease 19 MOTHER, G8 BROTHER G8 BROTHER Completed stroke 19 MOTHER, Diabetes mellitus 19 FATHER, 19 MOTHER, G8 BROTHER G8 SISTER FH: brain tumor FH: breast cancer 19 MOTHER, FH: lung cancer FHx: peripheral neuropathy Hypertension 19 FATHER, Lung c 19 FATHER, Myocardial infarction 19 MOTHER, Neuro No Pertinent Family Hx, Hypertension Review of Systems Constitutional: fever, malaise, weakness EENTM: no symptoms reported Respiratory: no symptoms reported Cardiovascular: no symptoms reported Gastrointestinal: abdominal pain Genitourinary: no symptoms reported Musculoskeletal: no symptoms reported Skin: no symptoms reported Psychiatric/Neurological: No Symptoms Reported Physical Exam Physical Exam Vital Signs Vital Signs - First Documented 09/06/20 01:40 Temp 38.9 Pulse 77 Resp 18 B/P (MAP) 189/73 (111) Pulse Ox 95 O2 Delivery Room Air Capillary Refill : Less Than 3 Seconds Height, Weight, BMI Height: 5'5.50" Weight: 195lbs. 0.0oz. 88.297845gz; 41.46 BMI Method:Stated General Appearance: No Apparent Distress, Obese HEENT: PERRL/EOMI, Pharynx Normal Neck: Normal Inspection Respiratory: Lungs Clear, Normal Breath Sounds, No Respiratory Distress Cardiovascular: Regular Rate, Rhythm, No Edema, No Murmur Gastrointestinal: Normal Bowel Sounds, Soft, Tenderness Extremity: Normal Inspection, Non Tender, No Pedal Edema Neurologic/Psychiatric: Alert, Oriented x3, No Motor/Sensory Deficits, Normal Mood/Affect Skin: Normal Color, Warm/Dry Results Results/Procedures Labs Laboratory Tests 09/06/20 01:50 Patient resulted labs reviewed. Imaging: Reviewed Imaging Report Assessment/Plan Admission Diagnosis Sepsis due to UTI Admission Status: Inpatient Order (span 2 midnights) Reason for Inpatient Admission: UTI requiring IV antibiotics Assessment and Plan Sepsis due to UTI SIRS+ with fever and leukocytosis UA showed likely UTI Urine culture pending Started on Cefepime Type 2 diabetes mellitus with foot ulcer Follows with Dr. Sarmiento Started on Vancomycin and Cefepime Does not appear to be infected Stop Vancomycin Continue wound care Levemir Novolog with meals Sliding scale HTN HLD GERD Continue home meds Morbid obesity Clinically significant, no acute management needs DVT prophylaxis: Lovenox Diagnosis/Problems Diagnosis/Problems (1) Sepsis Status: Acute Qualifiers: Sepsis type: puerperal sepsis Sepsis acute organ dysfunction status: without acute organ dysfunction Qualified Codes: O85 - Puerperal sepsis (2) UTI (urinary tract infection) Status: Acute Qualifiers: Urinary tract infection type: acute cystitis Hematuria presence: without hematuria Qualified Codes: N30.00 - Acute cystitis without hematuria (3) Diabetic foot ulcer Status: Acute Qualifiers: Diabetic foot ulcer location: midfoot Diabetes mellitus type: type 2 Laterality: right Non-pressure ulcer stage: with fat layer exposed Qualified Codes: E11.621 - Type 2 diabetes mellitus with foot ulcer; L97.412 - Non-pressure chronic ulcer of right heel and midfoot with fat layer exposed Clinical Quality Measures DVT/VTE Risk/Contraindication: Risk Factor Score Per Nursin RFS Level Per Nursing on Admit: 4+=Very High SIA RAMSEY MD Sep 06, 2020 13:21
[2020-09-06] MEDS ORDERED: hydrALAZINE (APRESOLINE) 25 MG TAB PO NR (13:45)
[2020-09-06] MEDS ORDERED: meTOprolol SUCCINATE 100 MG (TOPROL XL) TAB PO NR (13:45)
[2020-09-06] MEDS ORDERED: metroNIDAZOLE 500MG/100ML IVPB 100 ML IV SCH (14:00)
[2020-09-06] MEDS ORDERED: VANCOMYCIN 750 MG/NS 250 ML IVPB IV SCH ×2 (14:30)
[2020-09-06] MEDS ORDERED: GABAPENTIN 300 MG (NEURONTIN) CAP PO NR (15:45)
[2020-09-06] MEDS: hydrALAZINE (APESOLINE) 20 MG/ML VIAL IV PRN (16:53)
--- NOTE | 2020-09-06 17:55 | NUR ---
PCT NOTIFIED THIS RN OF PT UNABLE TO FORM SENTENCES WHEN TRYING TO SPEAK. VS OBTAINED AND IN CHART. BP 194/72 AFTER RECEIVING 10MG OF IV HYDRALAZINE AT 1653 FOR BP OF 198/72. PT ABLE TO ANSWERS QUESTIONS APPROPRIATELY WITH CLEAR SPEECH, HAS EQUAL HAND STRUCTURAL STEEL FITTER, SYMMETRICAL FACE MOVEMENT AND ABLE TO AMBULATE TO BATHROOM WITHOUT DIFFICULTY. WHEN PT BEGAN TO EXPLAIN TO THIS RN WHAT WAS WRONG SHE BEGAN TO SLUR SPEECH AND WAS UNABLE TO EXPLAIN. PT WAS ABLE TO SPEAK CLEARLY AFTER WHEN ASKED A QUESTION. PT PAIN 8/10 TRAMADOL AND GABAPENTIN GIVEN AT 1406. DR RAMSEY WAS NOTIFIED VIA PHONE NEW ORDERS WERE PLACED IN EMAR. PT STARTED ON Q2 NEURO CHECKS.
[2020-09-06] MEDS ORDERED: cloNIDine 0.2 MG (CATAPRES) TAB PO NR (18:15)
--- NOTE | 2020-09-06 19:05 | NUR ---
CT NOTIFIED OF STAT CT OF HEAD
--- NOTE | 2020-09-06 19:17 | NUR ---
Patient was attempting to ambulate in her room without assist. While moving in bed, pulled out IV from Hand. Cather tip intact. Restarted IV on R FA.
--- NOTE | 2020-09-06 19:55 | Diagnostic Imaging Report ---
PROCEDURE: CT head without contrast. TECHNIQUE: Multiple contiguous axial images were obtained through the brain without the use of intravenous contrast. Auto Exposure Controls were utilized during the CT exam to meet ALARA standards for radiation dose reduction. INDICATION: Covid positive and aphasia. COMPARISON: Prior examination from 12/04/2017. FINDINGS: The ventricles and sulci are within normal limits. There is no hydrocephalus. There is no midline shift. There is no mass, hemorrhage or extra-axial fluid collection. There is an unchanged lacunar infarct in the right basal ganglia. There is no intracranial mass, hemorrhage or extra-axial fluid collection. The calvarium is intact. Sinuses and mastoid air cells are clear. There is moderate atherosclerotic calcification of the intracranial internal carotid arteries. IMPRESSION: 1. Unchanged lacunar infarct in the right basal ganglia. 2. Moderate atherosclerotic calcification of the intracranial internal carotid arteries. 3. In light of patient's neurologic symptoms, further evaluation with MRI should be considered. Dictated by: Dictated on workstation # [id number]
[2020-09-06] MEDS ORDERED: MEROPENEM 1,000 MG in WATER (STERILE) FOR INJECTION 20 ML IV SCH ×4 (20:00)
[2020-09-06] MEDS ORDERED: cefTRIAXone FOR IV USE 2,000 MG in WATER (STERILE) FOR INJECTION 20 ML IV SCH (20:00)
[2020-09-06] MEDS: SENNOSIDES 8.6 MG (SENOKOT) TAB PO SCH (20:44)
[2020-09-06] MEDS: DOCUSATE SODIUM 100 MG (COLACE) CAP PO SCH (20:44)
[2020-09-06] MEDS: ACETAMINOPHEN 325 MG TABLET PO PRN (20:45)
[2020-09-06] MEDS: GABAPENTIN 300 MG (NEURONTIN) CAP PO SCH (20:45)
[2020-09-06] MEDS: ENALAPRIL 10 MG (VASOTEC) TAB PO SCH (20:45)
[2020-09-06] MEDS: MEROPENEM 500 MG/SWFI 10 ML IV PUSH IV SCH ×2 (20:46)
[2020-09-06] MEDS ORDERED: NON-FORMULARY MEDICATION 1 EA EA (Enalapril Maleate 20 MG) PO SCH (21:00)
[2020-09-06] MEDS ORDERED: NON-FORMULARY MEDICATION 1 EA EA (Hydralazine HCl 50 MG) PO SCH (21:00)
[2020-09-06] MEDS: hydrALAZINE (APRESOLINE) 25 MG TAB PO SCH (21:38)
[2020-09-07] MEDS: MEROPENEM 500 MG/SWFI 10 ML IV PUSH IV SCH ×4 (01:03→09:39)
[2020-09-07 04:03] VITALS: BP 141/65
[2020-09-07] MEDS: ACETAMINOPHEN 325 MG TABLET PO PRN ×2 (04:21→20:22)
[2020-09-07 05:51] LABS: BASOPHILS % (AUTO) 0 % (0-10); EOSINOPHILS # (AUTO) 0.1 10^3/uL (0.0-0.3); EOSINOPHILS % (AUTO) 1 % (0-10); HEMATOCRIT 32 % (35-52); HEMOGLOBIN 9.9 g/dL (11.5-16.0); LYMPHOCYTES # (AUTO) 1.8 10^3/uL (1.0-4.0); LYMPHOCYTES % (AUTO) 16 % (12-44); MEAN CORPUSCULAR HEMOGLOBIN 29 pg (25-34); MEAN CORPUSCULAR HGB CONC 31 g/dL (32-36); MEAN CORPUSCULAR VOLUME 94 fL (80-99); MEAN PLATELET VOLUME 9.7 fL (9.0-12.2); MONOCYTES # (AUTO) 1.1 10^3/uL (0.0-1.0); MONOCYTES % (AUTO) 10 % (0-12); NEUTROPHILS # (AUTO) 8.3 10^3/uL (1.8-7.8); NEUTROPHILS % (AUTO) 73 % (42-75); PLATELET COUNT 202 10^3/uL (130-400); WHITE BLOOD COUNT 11.3 10^3/uL (4.3-11.0)
[2020-09-07 06:06] LABS: CHLORIDE 109 MMOL/L (98-107); POTASSIUM 3.3 MMOL/L (3.6-5.0); SODIUM 139 MMOL/L (135-145)
[2020-09-07 06:07] LABS: CALCIUM 8.5 MG/DL (8.5-10.1)
[2020-09-07 06:08] LABS: GLUCOSE 128 MG/DL (70-105)
[2020-09-07] MEDS: inSUlin ASPART (NovoLOG) 1 UNIT/0.01 ML (CHARGE PER UNIT) SC SCH ×7 (06:08→21:15)
[2020-09-07 06:09] LABS: CARBON DIOXIDE 20 MMOL/L (21-32)
[2020-09-07 06:11] LABS: CREATININE SERUM 0.79 MG/DL (0.60-1.30); GFR ESTIMATED > 60
[2020-09-07 06:12] LABS: BUN/CREATININE RATIO 19
[2020-09-07] MEDS: POTASSIUM CL 10MEQ/50ML IVPB 50 ML IV SCH (06:45)
[2020-09-07] MEDS: MAGNESIUM 1 GM/100 ML IVPB 100 ML IV SCH (06:46)
[2020-09-07] MEDS ORDERED: KCL 20 MEQ TAB (K-DUR) PO ONE ×3 (06:51→09:00)
[2020-09-07] MEDS: KCL 20 MEQ TAB (K-DUR) PO SCH (06:52)
--- NOTE | 2020-09-07 07:40 | NUR ---
attempted iv access x2 to R FA, unsuccessful.
--- NOTE | 2020-09-07 07:59 | NUR ---
House notified for iv access
[2020-09-07 08:00] VITALS: BP 172/64
[2020-09-07] MEDS: DOCUSATE SODIUM 100 MG (COLACE) CAP PO SCH ×2 (08:20→20:42)
[2020-09-07] MEDS: PANTOPRAZOLE 40 MG (PROTONIX) TAB PO SCH (08:20)
[2020-09-07] MEDS: LACTOBACILLUS ACIDOPHILUS (PROBIOTIC) CAPSULE PO SCH (08:20)
[2020-09-07] MEDS: ENALAPRIL 10 MG (VASOTEC) TAB PO SCH ×2 (08:20→20:21)
[2020-09-07] MEDS: GABAPENTIN 300 MG (NEURONTIN) CAP PO SCH ×3 (08:20→20:21)
[2020-09-07] MEDS: hydrALAZINE (APRESOLINE) 25 MG TAB PO SCH ×3 (08:21→20:24)
[2020-09-07] MEDS: ASPIRIN 81 MG CHEW (CHILDREN'S ASA) PO SCH (08:21)
[2020-09-07] MEDS: meTOprolol SUCCINATE 100 MG (TOPROL XL) TAB PO SCH (08:21)
[2020-09-07] MEDS: CLOPIDOGREL 75 MG (PLAVIX) TABLET PO SCH (08:21)
[2020-09-07] MEDS: SENNOSIDES 8.6 MG (SENOKOT) TAB PO SCH ×2 (08:23→20:42)
[2020-09-07] MEDS ORDERED: NON-FORMULARY MEDICATION 1 EA EA (Metoprolol Succinate 200 MG) PO SCH (09:00)
[2020-09-07] MEDS ORDERED: PANTOPRAZOLE 20 MG TABLET (PROTONIX) PO SCH (09:00)
[2020-09-07] MEDS ORDERED: NON-FORMULARY MEDICATION 1 EA EA (L.acidoph & Paracasei,B.lactis (Probiotic) 1 EACH) PO SCH (09:00)
[2020-09-07] MEDS: ENOXAPARIN 40 MG/0.4 ML (LOVENOX) SYR SC SCH ×2 (09:41→21:16)
--- NOTE | 2020-09-07 10:57 | Progress Note - Hospitalist ---
Subjective HPI/CC On Admission Date Seen by Provider: Sep 07, 2020 Time Seen by Provider: 07:00 Rhoda Ray is a a 65-year-old female with past medical history of hypertension, hyperlipidemia, GERD, type II diabetes mellitus, who presented with a fall. She has apparently been feeling weak. She did not hit her head. She did not lose consciousness. She has been having fevers. She reports having issues with recurrent urinary tract infections. She reports lower abdominal pain. She denies any nausea or vomiting. She denies any shortness of breath or cough. She denies any chest pain. She has a chronic right foot wound and follows with Dr. Sarmiento. He debrided this just a couple days ago. Subjective/Events-last exam She is feeling much better today. She is not confused. She denies pain. She denies trouble breathing. She has no other complaints. Focused Exam Lactate Level 09/06/20 01:50: Lactic Acid Level 1.49 Objective Exam Vital Signs Vital Signs Date Time Temp Pulse Resp B/P (MAP) Pulse Ox O2 Delivery O2 Flow Rate FiO2 09/07/20 08:00 36.6 69 20 172/64 (100) 98 Room Air Capillary Refill : Less Than 3 Seconds General Appearance: No Apparent Distress, Obese Respiratory: Lungs Clear, Normal Breath Sounds, No Respiratory Distress Cardiovascular: Regular Rate, Rhythm, Systolic Murmur Gastrointestinal: Normal Bowel Sounds, Non Tender, Soft Extremity: Normal Inspection, Non Tender, No Pedal Edema Neurologic/Psychiatric: Alert, Oriented x3, No Motor/Sensory Deficits, Normal Mood/Affect Skin: Normal Color, Warm/Dry Results/Procedures Lab Laboratory Tests 09/07/20 05:17 Patient resulted labs reviewed. Imaging: Reviewed Imaging Report Assessment/Plan Assessment and Plan Assess & Plan/Chief Complaint UTI Urine culture with Klebsiella, sensitive to Rocephin Transition from Merrem to Rocephin Delirium CT Head unremarkable Avoid delirium triggers Decreased Gabapentin Stopped Tramadol Type 2 diabetes mellitus with foot ulcer Follows with Dr. Sarmiento Does not appear to be infected Continue wound care Levemir Novolog with meals Sliding scale HTN HLD GERD Continue home meds Morbid obesity Clinically significant, no acute management needs DVT prophylaxis: Lovenox Sepsis, resolved Diagnosis/Problems Diagnosis/Problems (1) UTI (urinary tract infection) Status: Acute Qualifiers: Urinary tract infection type: acute cystitis Hematuria presence: without hematuria Qualified Codes: N30.00 - Acute cystitis without hematuria (2) Diabetic foot ulcer Status: Acute Qualifiers: Diabetic foot ulcer location: midfoot Diabetes mellitus type: type 2 Laterality: right Non-pressure ulcer stage: with fat layer exposed Qualified Codes: E11.621 - Type 2 diabetes mellitus with foot ulcer; L97.412 - Non- pressure chronic ulcer of right heel and midfoot with fat layer exposed (3) Sepsis Status: Resolved Qualifiers: Sepsis type: puerperal sepsis Sepsis acute organ dysfunction status: without acute organ dysfunction Qualified Codes: O85 - Puerperal sepsis Resolution Date/Time: 09/07/20 @ 10:57 (4) Delirium Status: Acute Clinical Quality Measures DVT/VTE Risk/Contraindication: Risk Factor Score Per Nursin RFS Level Per Nursing on Admit: 4+=Very High SIA RAMSEY MD Sep 07, 2020 10:57
[2020-09-07] MEDS: SILVER SULFADIAZINE 50 GM CREAM TOP SCH (11:01)
[2020-09-07] MEDS: cefTRIAXone FOR IV USE 2,000 MG in WATER (STERILE) FOR INJECTION 20 ML IV SCH (11:02)
[2020-09-07 12:00] VITALS: BP 161/80
[2020-09-07] MEDS: NS IV 1000 ML 1,000 ML IV SCH ×2 (12:26→22:01)
[2020-09-07] MEDS ORDERED: TROUGH ORDER-PHARMACY XX NR (13:30)
[2020-09-07 16:00] VITALS: BP 159/69
[2020-09-07 20:00] VITALS: BP 170/64
--- NOTE | 2020-09-07 20:39 | NUR ---
Patient states she is going home as shes not getting her full dose of gabapentin. reviewed home meds patient does take 900mg gabapentin at home. Contacted Dr Ortiz regarding.. He will place order for Requip but will not increase Gabapentin above 300mg due to patient being overly sedate last night 09/06. Will give medication and advise patient.
[2020-09-07] MEDS: rOPINIRole 0.25 MG (REQUIP) TAB PO SCH (21:14)
[2020-09-08] VITALS (7 sets, daily range): BP systolic 156–193; BP diastolic 58–84
[2020-09-08] MEDS: hydrALAZINE (APESOLINE) 20 MG/ML VIAL IV PRN (04:28)
[2020-09-08] MEDS: inSUlin ASPART (NovoLOG) 1 UNIT/0.01 ML (CHARGE PER UNIT) SC SCH ×7 (05:55→20:51)
[2020-09-08 06:15] LABS: BASOPHILS % (AUTO) 0 % (0-10); EOSINOPHILS # (AUTO) 0.1 10^3/uL (0.0-0.3); EOSINOPHILS % (AUTO) 1 % (0-10); HEMATOCRIT 33 % (35-52); HEMOGLOBIN 10.3 g/dL (11.5-16.0); LYMPHOCYTES # (AUTO) 1.8 10^3/uL (1.0-4.0); LYMPHOCYTES % (AUTO) 14 % (12-44); MEAN CORPUSCULAR HEMOGLOBIN 29 pg (25-34); MEAN CORPUSCULAR HGB CONC 31 g/dL (32-36); MEAN CORPUSCULAR VOLUME 94 fL (80-99); MEAN PLATELET VOLUME 9.7 fL (9.0-12.2); MONOCYTES # (AUTO) 1.1 10^3/uL (0.0-1.0); MONOCYTES % (AUTO) 8 % (0-12); NEUTROPHILS % (AUTO) 76 % (42-75); PLATELET COUNT 226 10^3/uL (130-400); WHITE BLOOD COUNT 13.1 10^3/uL (4.3-11.0)
[2020-09-08 06:37] LABS: CHLORIDE 109 MMOL/L (98-107)
[2020-09-08 06:38] LABS: POTASSIUM 3.8 MMOL/L (3.6-5.0); SODIUM 138 MMOL/L (135-145)
[2020-09-08 06:39] LABS: CALCIUM 8.4 MG/DL (8.5-10.1); GLUCOSE 127 MG/DL (70-105)
[2020-09-08 06:41] LABS: CARBON DIOXIDE 17 MMOL/L (21-32)
[2020-09-08 06:43] LABS: CREATININE SERUM 0.71 MG/DL (0.60-1.30); GFR ESTIMATED > 60
[2020-09-08 06:44] LABS: BUN/CREATININE RATIO 18
[2020-09-08 06:45] LABS: MAGNESIUM 2.1 MG/DL (1.6-2.4)
[2020-09-08] MEDS: NS IV 1000 ML 1,000 ML IV SCH ×2 (07:37→17:56)
--- NOTE | 2020-09-08 09:25 | Progress Note - Hospitalist ---
Subjective HPI/CC On Admission Date Seen by Provider: Sep 08, 2020 Time Seen by Provider: 07:10 Rhoda Ray is a a 65-year-old female with past medical history of hypertension, hyperlipidemia, GERD, type II diabetes mellitus, who presented with a fall. She has apparently been feeling weak. She did not hit her head. She did not lose consciousness. She has been having fevers. She reports having issues with recurrent urinary tract infections. She reports lower abdominal pain. She denies any nausea or vomiting. She denies any shortness of breath or cough. She denies any chest pain. She has a chronic right foot wound and follows with Dr. Sarmiento. He debrided this just a couple days ago. Subjective/Events-last exam she is sitting on the edge of her bed. She reports having a lot of indigestion. She this feeling chilly today. She has had continued fevers. She denies any trouble breathing. She denies any cough. Focused Exam Lactate Level 09/06/20 01:50: Lactic Acid Level 1.49 Objective Exam Vital Signs Vital Signs Date Time Temp Pulse Resp B/P (MAP) Pulse Ox O2 Delivery O2 Flow Rate FiO2 09/08/20 04:00 36.2 76 18 182/72 (108) 95 Room Air Capillary Refill : Less Than 3 SecondsLess Than 3 Seconds General Appearance: Mild Distress, Obese Respiratory: Lungs Clear, Normal Breath Sounds, No Respiratory Distress Cardiovascular: Regular Rate, Rhythm, No Edema, No Murmur Gastrointestinal: Normal Bowel Sounds, Non Tender, Soft Extremity: Normal Inspection, Non Tender, No Pedal Edema Neurologic/Psychiatric: Alert, Oriented x3, No Motor/Sensory Deficits, Normal Mood/Affect Skin: Other (right foot wound with dressing in place) Results/Procedures Lab Laboratory Tests 09/08/20 05:48 Patient resulted labs reviewed. Imaging: Reviewed Imaging Report Assessment/Plan Assessment and Plan Assess & Plan/Chief Complaint UTI Urine culture with Klebsiella, sensitive to Rocephin continue Rocephin Type 2 diabetes mellitus with foot ulcer Follows with Dr. Sarmiento Does not appear to be infected Continue wound care Levemir Novolog with meals Sliding scale Restless legs Requip HTN Continue Enalapril Continue Metoprolol Increase Hydralazine Add Amlodipine GERD Increase Protonix Mylanta as needed HLD Statin Morbid obesity Clinically significant, no acute management needs DVT prophylaxis: Lovenox Sepsis, resolved Delirium, resolved Diagnosis/Problems Diagnosis/Problems (1) UTI (urinary tract infection) Status: Acute Qualifiers: Urinary tract infection type: acute cystitis Hematuria presence: without hematuria Qualified Codes: N30.00 - Acute cystitis without hematuria (2) Diabetic foot ulcer Status: Acute Qualifiers: Diabetic foot ulcer location: midfoot Diabetes mellitus type: type 2 Laterality: right Non-pressure ulcer stage: with fat layer exposed Qualified Codes: E11.621 - Type 2 diabetes mellitus with foot ulcer; L97.412 - Non- pressure chronic ulcer of right heel and midfoot with fat layer exposed (3) Sepsis Status: Resolved Qualifiers: Sepsis type: puerperal sepsis Sepsis acute organ dysfunction status: without acute organ dysfunction Qualified Codes: O85 - Puerperal sepsis Resolution Date/Time: 09/07/20 @ 10:57 (4) HTN (hypertension) Status: Acute Qualifiers: Hypertension type: essential hypertension Qualified Codes: I10 - Essential (primary) hypertension (5) Delirium Status: Resolved Resolution Date/Time: 09/08/20 @ 09:26 Clinical Quality Measures DVT/VTE Risk/Contraindication: Risk Factor Score Per Nursin RFS Level Per Nursing on Admit: 4+=Very High SIA RAMSEY MD Sep 08, 2020 09:25
[2020-09-08] MEDS ORDERED: amLODIPine 10 MG (NORVASC) TAB PO ONE (09:30)
[2020-09-08] MEDS: meTOprolol SUCCINATE 100 MG (TOPROL XL) TAB PO SCH (10:19)
[2020-09-08] MEDS: LACTOBACILLUS ACIDOPHILUS (PROBIOTIC) CAPSULE PO SCH (10:21)
[2020-09-08] MEDS: CLOPIDOGREL 75 MG (PLAVIX) TABLET PO SCH (10:21)
[2020-09-08] MEDS: PANTOPRAZOLE 40 MG (PROTONIX) TAB PO SCH ×2 (10:21→20:50)
[2020-09-08] MEDS: SILVER SULFADIAZINE 50 GM CREAM TOP SCH (10:22)
[2020-09-08] MEDS: ASPIRIN 81 MG CHEW (CHILDREN'S ASA) PO SCH (10:22)
[2020-09-08] MEDS: ENOXAPARIN 40 MG/0.4 ML (LOVENOX) SYR SC SCH ×2 (10:23→23:11)
[2020-09-08] MEDS: ENALAPRIL 10 MG (VASOTEC) TAB PO SCH ×2 (10:26→20:49)
[2020-09-08] MEDS: SENNOSIDES 8.6 MG (SENOKOT) TAB PO SCH ×2 (10:28→20:51)
[2020-09-08] MEDS: DOCUSATE SODIUM 100 MG (COLACE) CAP PO SCH ×2 (10:28→20:51)
--- NOTE | 2020-09-08 11:00 | NUR ---
PATIENT C/O RIGHT LOWER LEG BEING LARGER THAN LEFT, STATES SHE CALLED DR KIRK AND HE WOULD LIKE A ULTRASOUND DONE ON RIGHT LEG, PATIENT INSTRUCTED THAT HE HAS NOT BEEN CONSULTED ON HER CASE, DR RAMSEY NOTIFIED OF THE REQUEST, DRESSING DRY INTACT TO RIGHT FOOT, PEDAL PULSES PRESENT
[2020-09-08] MEDS: cefTRIAXone FOR IV USE 2,000 MG in WATER (STERILE) FOR INJECTION 20 ML IV SCH (11:19)
--- NOTE | 2020-09-08 12:47 | Physical Therapy Progress Note ---
Therapy Progress Note Patient states that she is doing well and is ready for lunch and does not want to do therapy today. States that she is up walking on her own so she doesn't need it today. SELVIN LAMBERT PT Sep 08, 2020 12:47
[2020-09-08] MEDS: GABAPENTIN 300 MG (NEURONTIN) CAP PO SCH ×2 (13:15→20:49)
[2020-09-08] MEDS: hydrALAZINE (APRESOLINE) 25 MG TAB PO SCH ×2 (13:16→20:49)
[2020-09-08] MEDS: ACETAMINOPHEN 325 MG TABLET PO PRN (17:54)
[2020-09-08] MEDS: rOPINIRole 0.25 MG (REQUIP) TAB PO SCH (20:49)
--- NOTE | 2020-09-09 02:30 | NUR ---
pt complains of shortness of breath, O2 sat at 94% RA. states she usually takes lasix daily. Dr. Ortiz notified, states he will assess pt in morning.
[2020-09-09 04:00] VITALS: BP 177/64
[2020-09-09 05:53] LABS: BASOPHILS % (AUTO) 0 % (0-10); EOSINOPHILS # (AUTO) 0.1 10^3/uL (0.0-0.3); EOSINOPHILS % (AUTO) 1 % (0-10); HEMATOCRIT 31 % (35-52); HEMOGLOBIN 9.5 g/dL (11.5-16.0); LYMPHOCYTES # (AUTO) 1.3 10^3/uL (1.0-4.0); LYMPHOCYTES % (AUTO) 11 % (12-44); MEAN CORPUSCULAR HEMOGLOBIN 30 pg (25-34); MEAN CORPUSCULAR HGB CONC 31 g/dL (32-36); MEAN CORPUSCULAR VOLUME 95 fL (80-99); MEAN PLATELET VOLUME 9.6 fL (9.0-12.2); MONOCYTES % (AUTO) 8 % (0-12); NEUTROPHILS # (AUTO) 9.6 10^3/uL (1.8-7.8); NEUTROPHILS % (AUTO) 79 % (42-75); PLATELET COUNT 212 10^3/uL (130-400); WHITE BLOOD COUNT 12.1 10^3/uL (4.3-11.0)
[2020-09-09 06:09] LABS: CHLORIDE 108 MMOL/L (98-107); POTASSIUM 3.8 MMOL/L (3.6-5.0); SODIUM 136 MMOL/L (135-145)
[2020-09-09 06:10] LABS: CALCIUM 8.3 MG/DL (8.5-10.1); GLUCOSE 158 MG/DL (70-105)
[2020-09-09] MEDS: POTASSIUM CL 10MEQ/50ML IVPB 50 ML IV SCH (06:10)
[2020-09-09] MEDS: KCL 20 MEQ TAB (K-DUR) PO SCH (06:10)
[2020-09-09] MEDS: inSUlin ASPART (NovoLOG) 1 UNIT/0.01 ML (CHARGE PER UNIT) SC SCH ×7 (06:11→21:14)
[2020-09-09 06:12] LABS: CARBON DIOXIDE 18 MMOL/L (21-32)
[2020-09-09 06:14] LABS: CREATININE SERUM 0.72 MG/DL (0.60-1.30); GFR ESTIMATED > 60
[2020-09-09 06:15] LABS: BUN/CREATININE RATIO 15
[2020-09-09] MEDS: MAGNESIUM 1 GM/100 ML IVPB 100 ML IV SCH (06:29)
[2020-09-09] MEDS: NS IV 1000 ML 1,000 ML IV SCH (06:44)
[2020-09-09] MEDS: ENALAPRIL 10 MG (VASOTEC) TAB PO SCH ×2 (07:44→20:46)
[2020-09-09] MEDS: PANTOPRAZOLE 40 MG (PROTONIX) TAB PO SCH ×2 (07:44→20:46)
[2020-09-09] MEDS: LACTOBACILLUS ACIDOPHILUS (PROBIOTIC) CAPSULE PO SCH (07:44)
[2020-09-09] MEDS: amLODIPine 5 MG (NORVASC) TAB PO SCH (07:45)
[2020-09-09] MEDS: ASPIRIN 81 MG CHEW (CHILDREN'S ASA) PO SCH (07:45)
[2020-09-09] MEDS: meTOprolol SUCCINATE 100 MG (TOPROL XL) TAB PO SCH (07:45)
[2020-09-09] MEDS: hydrALAZINE (APRESOLINE) 25 MG TAB PO SCH ×3 (07:45→21:14)
[2020-09-09] MEDS: CLOPIDOGREL 75 MG (PLAVIX) TABLET PO SCH (07:45)
[2020-09-09] MEDS: GABAPENTIN 300 MG (NEURONTIN) CAP PO SCH ×3 (07:46→20:46)
[2020-09-09] MEDS: SENNOSIDES 8.6 MG (SENOKOT) TAB PO SCH ×2 (07:51→21:07)
[2020-09-09] MEDS: DOCUSATE SODIUM 100 MG (COLACE) CAP PO SCH ×2 (07:54→21:07)
[2020-09-09] MEDS: SILVER SULFADIAZINE 50 GM CREAM TOP SCH (07:55)
[2020-09-09 08:00] VITALS: BP 182/62
[2020-09-09 12:00] VITALS: BP 164/70
[2020-09-09] MEDS ORDERED: FUROSEMIDE 40 MG (LASIX) TAB ONE (12:13)
[2020-09-09] MEDS ORDERED: FUROSEMIDE 40 MG (LASIX) TAB PO PRN (12:15)
[2020-09-09] MEDS: ENOXAPARIN 40 MG/0.4 ML (LOVENOX) SYR SC SCH ×2 (12:16→21:53)
[2020-09-09] MEDS: cefTRIAXone FOR IV USE 2,000 MG in WATER (STERILE) FOR INJECTION 20 ML IV SCH (12:17)
--- NOTE | 2020-09-09 14:45 | Diagnostic Imaging Report ---
EXAMINATION: Right foot radiographs, 3 views. COMPARISON: April 27, 2018. HISTORY: 65-year-old female, diabetic foot ulcer. FINDINGS: There is absence of the distal aspect of the third proximal phalanx and absence of the third digit phalanges. There is bone loss at the level of the distal aspect of the first distal phalanx with widening of the first interphalangeal joint space. This is a similar appearance to April 27, 2018 may relate to sequela of prior osteomyelitis and septic arthritis. There is no interval bone destruction. There is degenerative type calcaneal enthesopathy. There is no large tibiotalar joint effusion. There is a normal variant os trigonum. There is soft tissue swelling at the level of the dorsal aspect of the foot at the region of the metatarsals. There is no identified radiopaque foreign body. IMPRESSION: 1. No evidence of an acute aggressive osteomyelitis radiographically. 2. Deformity in the region of the first interphalangeal joint which may relate to sequela of prior osteomyelitis and septic arthritis. 3. Postoperative changes of the third digit. Dictated by: Dictated on workstation # [id number]
--- NOTE | 2020-09-09 15:14 | Progress Note - Hospitalist ---
Subjective HPI/CC On Admission Date Seen by Provider: Sep 09, 2020 Time Seen by Provider: 10:10 Rhoda Ray is a a 65-year-old female with past medical history of hypertension, hyperlipidemia, GERD, type II diabetes mellitus, who presented with a fall. She has apparently been feeling weak. She did not hit her head. She did not lose consciousness. She has been having fevers. She reports having issues with recurrent urinary tract infections. She reports lower abdominal pain. She denies any nausea or vomiting. She denies any shortness of breath or cough. She denies any chest pain. She has a chronic right foot wound and follows with Dr. Sarmiento. He debrided this just a couple days ago. Subjective/Events-last exam she is feeling short of breath overnight. She is feeling better this morning. She denies any fevers. She denies any other complaints or concerns. Objective Exam Vital Signs Vital Signs Date Time Temp Pulse Resp B/P (MAP) Pulse Ox O2 Delivery O2 Flow Rate FiO2 09/09/20 12:00 37.0 68 20 164/70 (101) 94 Room Air Capillary Refill : Less Than 3 SecondsLess Than 3 Seconds General Appearance: No Apparent Distress, Obese Respiratory: Lungs Clear, Normal Breath Sounds, No Respiratory Distress Cardiovascular: Regular Rate, Rhythm, Systolic Murmur Gastrointestinal: Normal Bowel Sounds, Non Tender, Soft Extremity: Normal Inspection, No Pedal Edema, Other (right foot ulcer with dressing in place) Neurologic/Psychiatric: Alert, Oriented x3, No Motor/Sensory Deficits, Normal Mood/Affect Skin: Warm/Dry, Other (right foot ulcer with surrounding edema) Results/Procedures Lab Laboratory Tests 09/09/20 05:20 Patient resulted labs reviewed. Imaging: Reviewed Imaging Report Assessment/Plan Assessment and Plan Assess & Plan/Chief Complaint Klebsiella UTI Urine culture with Klebsiella, sensitive to Rocephin continue Rocephin Type 2 diabetes mellitus with foot ulcer Follows with Dr. Sarmiento Continue wound care Levemir Novolog with meals Sliding scale ESR and CRP elevated Xray without evidence of osteomyelitis Restless legs Started on Requip HTN Continue Enalapril, Hydralazine, and Amlodipine Transition from Metoprolol to Coreg GERD Continue Protonix Mylanta as needed HLD Statin Morbid obesity Clinically significant, no acute management needs DVT prophylaxis: Lovenox Sepsis, resolved Delirium, resolved Diagnosis/Problems Diagnosis/Problems (1) UTI (urinary tract infection) Status: Acute Qualifiers: Urinary tract infection type: acute cystitis Hematuria presence: without hematuria Qualified Codes: N30.00 - Acute cystitis without hematuria (2) Diabetic foot ulcer Status: Acute Qualifiers: Diabetic foot ulcer location: midfoot Diabetes mellitus type: type 2 Laterality: right Non-pressure ulcer stage: with fat layer exposed Qualified Codes: E11.621 - Type 2 diabetes mellitus with foot ulcer; L97.412 - Non- pressure chronic ulcer of right heel and midfoot with fat layer exposed (3) Sepsis Status: Resolved Qualifiers: Sepsis type: puerperal sepsis Sepsis acute organ dysfunction status: without acute organ dysfunction Qualified Codes: O85 - Puerperal sepsis Resolution Date/Time: 09/07/20 @ 10:57 (4) HTN (hypertension) Status: Acute Qualifiers: Hypertension type: essential hypertension Qualified Codes: I10 - Essential (primary) hypertension (5) Delirium Status: Resolved Resolution Date/Time: 09/08/20 @ 09:26 Clinical Quality Measures DVT/VTE Risk/Contraindication: Risk Factor Score Per Nursin RFS Level Per Nursing on Admit: 4+=Very High SIA RAMSEY MD Sep 09, 2020 15:14
[2020-09-09 16:00] VITALS: BP 199/79
[2020-09-09] MEDS: hydrALAZINE (APESOLINE) 20 MG/ML VIAL IV PRN ×2 (17:05→20:48)
[2020-09-09] MEDS: ACETAMINOPHEN 325 MG TABLET PO PRN (19:50)
[2020-09-09 20:00] VITALS: BP 157/66
[2020-09-09] MEDS ORDERED: rOPINIRole 0.25 MG (REQUIP) TAB PO SCH (21:00)
[2020-09-10] VITALS: BP 164/71
[2020-09-10 03:52] VITALS: BP 172/75
[2020-09-10] MEDS: MAGNESIUM 1 GM/100 ML IVPB 100 ML IV SCH (06:00)
[2020-09-10] MEDS: POTASSIUM CL 10MEQ/50ML IVPB 50 ML IV SCH (06:18)
[2020-09-10 06:19] LABS: BASOPHILS # (AUTO) 0.1 10^3/uL (0.0-0.1); BASOPHILS % (AUTO) 0 % (0-10); EOSINOPHILS # (AUTO) 0.3 10^3/uL (0.0-0.3); EOSINOPHILS % (AUTO) 2 % (0-10); HEMATOCRIT 32 % (35-52); HEMOGLOBIN 9.8 g/dL (11.5-16.0); LYMPHOCYTES # (AUTO) 1.9 10^3/uL (1.0-4.0); LYMPHOCYTES % (AUTO) 13 % (12-44); MEAN CORPUSCULAR HEMOGLOBIN 29 pg (25-34); MEAN CORPUSCULAR HGB CONC 31 g/dL (32-36); MEAN CORPUSCULAR VOLUME 94 fL (80-99); MEAN PLATELET VOLUME 9.8 fL (9.0-12.2); MONOCYTES # (AUTO) 1.2 10^3/uL (0.0-1.0); MONOCYTES % (AUTO) 9 % (0-12); NEUTROPHILS # (AUTO) 10.6 10^3/uL (1.8-7.8); NEUTROPHILS % (AUTO) 75 % (42-75); PLATELET COUNT 258 10^3/uL (130-400)
[2020-09-10 06:46] LABS: BUN/CREATININE RATIO 19; CALCIUM 8.5 MG/DL (8.5-10.1); CARBON DIOXIDE 24 MMOL/L (21-32); CHLORIDE 105 MMOL/L (98-107); CREATININE SERUM 0.75 MG/DL (0.60-1.30); GFR ESTIMATED > 60; GLUCOSE 116 MG/DL (70-105); POTASSIUM 3.5 MMOL/L (3.6-5.0); SODIUM 137 MMOL/L (135-145)
[2020-09-10] MEDS: inSUlin ASPART (NovoLOG) 1 UNIT/0.01 ML (CHARGE PER UNIT) SC SCH ×5 (06:56→15:50)
[2020-09-10] MEDS: KCL 20 MEQ TAB (K-DUR) PO SCH (06:57)
[2020-09-10] MEDS ORDERED: KCL 20 MEQ TAB (K-DUR) PO NR (07:30)
[2020-09-10 08:43] VITALS: BP 170/74
--- NOTE | 2020-09-10 09:33 | Physical Therapy Progress Note ---
Therapy Progress Note Patient is up independently in room and states she does not need skilled therapy anymore. PT to dismiss patient from services at this time due to independence. 1 visit (824) ALAN RAMOS PT Sep 10, 2020 09:33
[2020-09-10] MEDS: hydrALAZINE (APRESOLINE) 25 MG TAB PO SCH ×2 (09:50→12:37)
[2020-09-10] MEDS: PANTOPRAZOLE 40 MG (PROTONIX) TAB PO SCH (09:50)
[2020-09-10] MEDS: ENOXAPARIN 40 MG/0.4 ML (LOVENOX) SYR SC SCH (09:50)
[2020-09-10] MEDS: CLOPIDOGREL 75 MG (PLAVIX) TABLET PO SCH (09:50)
[2020-09-10] MEDS: ENALAPRIL 10 MG (VASOTEC) TAB PO SCH (09:51)
[2020-09-10] MEDS: amLODIPine 5 MG (NORVASC) TAB PO SCH (09:51)
[2020-09-10] MEDS: SILVER SULFADIAZINE 50 GM CREAM TOP SCH (09:51)
[2020-09-10] MEDS: SENNOSIDES 8.6 MG (SENOKOT) TAB PO SCH (09:51)
[2020-09-10] MEDS: DOCUSATE SODIUM 100 MG (COLACE) CAP PO SCH (09:51)
[2020-09-10] MEDS: LACTOBACILLUS ACIDOPHILUS (PROBIOTIC) CAPSULE PO SCH (09:51)
[2020-09-10] MEDS: meTOprolol SUCCINATE 100 MG (TOPROL XL) TAB PO SCH (09:51)
[2020-09-10] MEDS: GABAPENTIN 300 MG (NEURONTIN) CAP PO SCH ×2 (09:51→12:37)
[2020-09-10] MEDS: ASPIRIN 81 MG CHEW (CHILDREN'S ASA) PO SCH (09:51)
[2020-09-10 11:52] VITALS: BP 188/75
[2020-09-10] MEDS: cefTRIAXone FOR IV USE 2,000 MG in WATER (STERILE) FOR INJECTION 20 ML IV SCH (12:37)
--- NOTE | 2020-09-10 13:19 | Discharge Inst-Simple/Standard ---
Discharge Inst-Standard Patient Instructions/Follow Up Plan of Care/Instructions/FU: Please continue to take your medications as written. Please follow up with your primary care doctor to follow up this hospital stay and with Dr Sarmiento as scheduled. Activity as Tolerated: Yes Discharge Diet: ADA Diet Return to The Hospital For: Chest pain, fever, confusion, shortness of breath, worsening swelling or redness of leg, if you feel you are getting worse. KELLI QUINTANA MD Sep 10, 2020 13:19
[2020-09-10] MEDS ORDERED: CEFD300C3 PO (13:22)
[2020-09-10] MEDS ORDERED: AMLO-250 PO (13:22)
[2020-09-10] MEDS ORDERED: ROPI0.5T4 PO (13:22)
--- NOTE | 2020-09-10 13:28 | Discharge Summary ---
Diagnosis/Chief Complaint Date of Admission Sep 06, 2020 at 03:20 Date of Discharge Discharge Date: Sep 10, 2020 Admission Diagnosis Sepsis due to UTI Primary Care Nino Bernabe DO Discharge Diagnosis (1) UTI (urinary tract infection) Status: Acute (2) Diabetic foot ulcer Status: Acute (3) Sepsis Status: Resolved (4) HTN (hypertension) Status: Acute (5) Delirium Status: Resolved Discharge Summary Discharge Physical Exam Allergies: Coded Allergies: No Known Drug Allergies (Unverified , 04/02/20) Vitals & I&Os Vital Signs Date Time Temp Pulse Resp B/P (MAP) Pulse Ox O2 Delivery O2 Flow Rate FiO2 09/10/20 11:52 66 20 188/75 (112) 95 Room Air 09/10/20 08:43 36.8 09/10/20 00:39 1.00 Hospital Course Labs (last 24 hrs) Laboratory Tests 09/09/20 15:42: Glucometer 199H 09/09/20 20:48: Glucometer 196H 09/10/20 05:26: White Blood Count 14.0H, Red Blood Count 3.38L, Hemoglobin 9.8L, Hematocrit 32L, Mean Corpuscular Volume 94, Mean Corpuscular Hemoglobin 29, Mean Corpuscular Hemoglobin Concent 31L, Red Cell Distribution Width 13.2, Platelet Count 258, Mean Platelet Volume 9.8, Immature Granulocyte % (Auto) 1, Neutrophils (%) (Auto) 75, Lymphocytes (%) (Auto) 13, Monocytes (%) (Auto) 9, Eosinophils (%) (Auto) 2, Basophils (%) (Auto) 0, Neutrophils # (Auto) 10.6H, Lymphocytes # (Auto) 1.9, Monocytes # (Auto) 1.2H, Eosinophils # (Auto) 0.3, Basophils # (Auto) 0.1, Immature Granulocyte # (Auto) 0.1, Sodium Level 137, Potassium Level 3.5L, Chloride Level 105, Carbon Dioxide Level 24, Anion Gap 8, Blood Urea Nitrogen 14, Creatinine 0.75, Estimat Glomerular Filtration Rate > 60, BUN/Creatinine Ratio 19, Glucose Level 116H, Calcium Level 8.5, Magnesium Level 2.3 09/10/20 11:28: Glucometer 118H Microbiology 09/06/20 Blood Culture - Preliminary, Resulted No growth 09/06/20 Urine Culture - Final, Complete Klebsiella pneumoniae 09/06/20 Influenza Types A,B Antigen (CORDELL) - Final, Complete Patient resulted labs reviewed. Pending Labs Laboratory Tests 09/10/20 11:28: Glucometer 118 Imaging: Reviewed Imaging Report Discharge Home Medications: Active Scripts Active Cefdinir 300 Mg Capsule 300 Mg PO BID Ropinirole HCl 0.5 Mg Tablet 0.5 Mg PO HS Amlodipine Besylate 5 Mg Tablet 10 Mg PO DAILY Reported Tums (Calcium Carbonate) 300 Mg Tab.chew 300-600 Mg PO PRN PRN Stool Softener (Docusate Sodium) 100 Mg Capsule 100-200 Mg PO BID PRN Zinc 50 Mg Tablet 50 Mg PO DAILY Insulin Aspart 100 Unit/1 Ml Vial 12-16 Units SC BID Furosemide 40 Mg Tablet 40 Mg PO DAILY PRN Probiotic (L.acidoph & Paracasei,B.lactis) 1 Each Capsule 1 Each PO DAILY Neurontin (Gabapentin) 300 Mg Capsule 900 Mg PO TID TAKES 3 (300MG) TABS Pantoprazole Sodium 20 Mg Tablet.dr 20 Mg PO DAILY LAST FILLED 03-12-2020 #90/90 DAY SUPPLY Clopidogrel (Clopidogrel Bisulfate) 75 Mg Tablet 75 Mg PO DAILY Tresiba Flextouch U-100 (Insulin Degludec) 100 Unit/1 Ml Insuln.pen 37 Units SC HS Aspirin 81 Mg Tab.chew 81 Mg PO DAILY Hydralazine HCl 50 Mg Tablet 50 Mg PO TID Metoprolol Succinate 200 Mg Tab.er.24h 200 Mg PO DAILY Enalapril Maleate 20 Mg Tablet 20 Mg PO BID Glimepiride 4 Mg Tablet 8 Mg PO DAILY TAKES 2 (4 MG) TABLETS Tramadol HCl 50 Mg Tablet 50 Mg PO TID Instructions to patient/family Please see electronic discharge instructions given to patient. Clinical Quality Measures DVT/VTE Risk/Contraindication: Risk Factor Score Per Nursin RFS Level Per Nursing on Admit: 4+=Very High Problem Qualifiers (1) UTI (urinary tract infection): Urinary tract infection type: acute cystitis Hematuria presence: without hematuria Qualified Codes: N30.00 - Acute cystitis without hematuria (2) Diabetic foot ulcer: Diabetic foot ulcer location: midfoot Diabetes mellitus type: type 2 Laterality: right Non-pressure ulcer stage: with fat layer exposed Qualified Codes: E11.621 - Type 2 diabetes mellitus with foot ulcer; L97.412 - Non- pressure chronic ulcer of right heel and midfoot with fat layer exposed (3) Sepsis: Sepsis type: puerperal sepsis Sepsis acute organ dysfunction status: without acute organ dysfunction Qualified Codes: O85 - Puerperal sepsis (4) HTN (hypertension): Hypertension type: essential hypertension Qualified Codes: I10 - Essential (primary) hypertension KELLI QUINTANA MD Sep 10, 2020 13:28
--- NOTE | 2020-09-10 14:30 | NUR ---
RD ASSESSMENT PMHx: HTN; HLD; GERD; DM; CAD; chronic UTI; PT INTERACTION: Pt was awake and pleasant during nutrition assessment. Pt states current appetite is "not the best." Note avg PO intake was 60% x4d, per chart review. Pt states trying to follow a low-CHO at home, and states no issues with chewing/swallowing food. Pt states no recent issues with nausea, vomiting, constipation, or diarrhea. Note last BM was 09/10, and pt currently on bowel regimen of colace BID, and senna BID, per chart review. Pt states no recent wt changes. Note recent 12# wt gain x5mon, per chart review. Pt states current DM management is "alright." Note recent HbA1c of 13.3 (06/11/2020), per chart review. Note presence of chronic wound (R foot), per chart review. ABNORMAL NUTRITION-RELATED LAB VALUES LOW: K 3.5; HIGH: glu 116; Est. kcal needs: 8568-1115 kcal | 15-18 kcal/kg Est. Pro needs: 115-134 g Pro | 1.2-1.4 g Pro/kg PES STATEMENT: Inadequate oral intake (NI-2.1) related to loss of appetite as evidenced by pt interview, and avg PO intake 60% x4d. Inadequate protein intake (NI-5.6.1) related to increased protein needs as evidenced by presence of chronic wound (R foot). INTERVENTION: Continue with current diet order of CHO 60g/m 1snack diet. Pt may benefit from nutrition supplementation if PO intake declines. Offered diet education on DM management, but pt declined at this time. May attempt to offer again prior to discharge. Will continue to follow and reassess as pt needs, intake, and status change. Walt LYMAN, MS RD LD [phone] cell
--- NOTE | 2020-09-10 15:42 | Diagnostic Imaging Report ---
INDICATION: Right leg pain. Right leg venous Doppler study was performed in the routine fashion with color flow Doppler and waveform analysis. FINDINGS: The right common femoral vein, superficial femoral vein, popliteal vein and visualized portion of the tibial veins show normal compressibility and venous flow patterns. There is normal augmentation. IMPRESSION: No evidence of deep vein thrombosis of the major veins of the right leg. Dictated by: Dictated on workstation # [id number]
[2020-09-10 16:00] VITALS: BP 175/74
== END 2020-09-10 16:20 | disposition home or self-care (01) | DRG 872 ==
LOC: EDUNIT# 01:34 → ER 01:35 → 4TH 03:20
PROVIDERS: ADMIT Internal Medicine; ATTEND Internal Medicine
DX: A41.59 Other Gram-negative sepsis (principal); N39.0 Urinary tract infection, site not specified; L97.419 Non-pressure chronic ulcer of right heel and midfoot with unspecified severity; Z68.41 Body mass index [BMI] 40.0-44.9, adult; E11.621 Type 2 diabetes mellitus with foot ulcer; E66.01 Morbid (severe) obesity due to excess calories; I10 Essential (primary) hypertension; Z20.828 Contact with and (suspected) exposure to other viral communicable diseases; E03.9 Hypothyroidism, unspecified; K21.9 Gastro-esophageal reflux disease without esophagitis; G25.81 Restless legs syndrome; E78.5 Hyperlipidemia, unspecified; R41.0 Disorientation, unspecified; I25.10 Atherosclerotic heart disease of native coronary artery without angina pectoris; E11.51 Type 2 diabetes mellitus with diabetic peripheral angiopathy without gangrene; M79.7 Fibromyalgia; Z87.891 Personal history of nicotine dependence; Z95.5 Presence of coronary angioplasty implant and graft; Z79.4 Long term (current) use of insulin
CPT/HCPCS: 36415; 51702; 70450; 71045; 73630; 80048; 80053; 81000; 82962; 83605; 83735; 85025; 85610; 85652; 85730; 86141; 87040; 87077; 87088; 87186; 87635; 87804; 94760

== ENCOUNTER 2020-09-13 12:09 | Emergency (ER) | payer OTHER ==
[~2020-09-13] VITALS: Ht 165.1 cm; Wt 90.9 kg
[~2020-09-13 12:09] MED LIST changes: +AMLO-250 PO; +CALC300T4 PO; +CEFD300C3 PO; +DOCU-238 PO; +INSU100V42 SC; +L.AC1CAP6 PO; +ROPI0.5T4 PO; +ZINC50TA58 PO
--- NOTE | 2020-09-13 12:41 | ED Integumentary General ---
General Chief Complaint: Skin/Wound Problems Stated Complaint: RT INFECTED FOOT Source: patient Exam Limitations: no limitations History of Present Illness Date Seen by Provider: Sep 13, 2020 Time Seen by Provider: 12:38 Initial Comments To ER with right foot redness and swelling and wound. She is diabetic with neuropathy and has no pain. No fevers or chills. She is been dealing with this wound for at least 3 months. She states it got quite a bit worse during her recent hospitalization for urinary tract infection. She followed up with supervising deputy Dr. Sarmiento today and he was concerned this needed surgical debridement and sent the patient to the emergency room. Timing/Duration: constant Severity: moderate Possible Cause: no cause identified Associated Symptoms: denies symptoms Allergies and Home Medications Allergies Coded Allergies: No Known Drug Allergies (Unverified , 04/02/20) Home Medications Amlodipine Besylate 5 Mg Tablet, 10 MG PO DAILY Prescribed by: KELLI QUINTANA on 09/10/20 1322 Aspirin 81 Mg Tab.chew, 81 MG PO DAILY, (Reported) Calcium Carbonate 300 Mg Tab.chew, 300-600 MG PO PRN PRN for HEARTBURN, (Reported) Cefdinir 300 Mg Capsule, 300 MG PO BID Prescribed by: KELLI QUINTANA on 09/10/20 1322 Clopidogrel Bisulfate 75 Mg Tablet, 75 MG PO DAILY, (Reported) Docusate Sodium 100 Mg Capsule, 100-200 MG PO BID PRN for CONSTIPATION-1ST LINE, (Reported) Enalapril Maleate 20 Mg Tablet, 20 MG PO BID, (Reported) Furosemide 40 Mg Tablet, 40 MG PO DAILY PRN for FLUID RETENTION, (Reported) Gabapentin 300 Mg Capsule, 900 MG PO TID, (Reported) TAKES 3 (300MG) TABS Glimepiride 4 Mg Tablet, 8 MG PO DAILY, (Reported) TAKES 2 (4 MG) TABLETS Hydralazine HCl 50 Mg Tablet, 50 MG PO TID, (Reported) Insulin Aspart 100 Unit/1 Ml Vial, 12-16 UNITS SC BID, (Reported) Insulin Degludec 100 Unit/1 Ml Insuln.pen, 37 UNITS SC HS, (Reported) L.acidoph & Paracasei,B.lactis 1 Each Capsule, 1 EACH PO DAILY, (Reported) Metoprolol Succinate 200 Mg Tab.er.24h, 200 MG PO DAILY, (Reported) Pantoprazole Sodium 20 Mg Tablet., 20 MG PO DAILY, (Reported) LAST FILLED 03-12-2020 #90/90 DAY SUPPLY Ropinirole HCl 0.5 Mg Tablet, 0.5 MG PO HS Prescribed by: KELLI QUINTANA on 09/10/20 1322 Tramadol HCl 50 Mg Tablet, 50 MG PO TID, (Reported) Zinc 50 Mg Tablet, 50 MG PO DAILY, (Reported) Patient Home Medication List Home Medication List Reviewed: Yes Review of Systems Review of Systems Constitutional: see HPI EENTM: see HPI Respiratory: no symptoms reported Cardiovascular: no symptoms reported Genitourinary: no symptoms reported Musculoskeletal: no symptoms reported Skin: no symptoms reported Psychiatric/Neurological: No Symptoms Reported Endocrine: No Symptoms Reported Past Ydiscym-Pyenlz-Igvsro Hx Patient Social History Type Used: Cigarettes Former Smoker, Quit: Apr 27, 1990 2nd Hand Smoke Exposure: Yes Recent Foreign Travel: No Contact w/Someone Who Travel: No Recent Hopitalizations: Yes (right foot debridment 09/05/20) Immunizations Up To Date Tetanus Booster (TDap): Unknown PED Vaccines UTD: No Date of Pneumonia Vaccine: Oct 15, 2018 Date of Influenza Vaccine: Jun 14, 2019 Seasonal Allergies Seasonal Allergies: No Past Medical History Surgeries: Yes (right leg vein sx , cardiac stent , FOOT SURGERY) Coronary Stent, Tubal Ligation Respiratory: No Currently Using CPAP: No Currently Using BIPAP: No Cardiac: Yes (STENTS) Coronary Artery Disease, Hypertension, Peripheral Vascular Neurological: Yes Neuropathy 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 Disorders: No Female 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 Disorders: Denies REFRIGERATION PERSON History: Menopausal Sexually Transmitted Disease: No HIV/AIDS: No Genitourinary: Yes UTI-Chronic Gastrointestinal: Yes Gastroesophageal Reflux Musculoskeletal: Yes Fibromyalgia Endocrine: Yes Diabetes, Insulin dep HEENT: No (GLASSES) Loss of Vision: Denies Hearing Impairment: Denies Cancer: No Psychosocial: No Integumentary: Yes (diabetic ulcer right foot) Blood Disorders: No Adverse Reaction/Blood Tranf: No (N/A) Family Medical History Cardiovascular disease 19 MOTHER, G8 BROTHER G8 BROTHER Completed stroke 19 MOTHER, Diabetes mellitus 19 FATHER, 19 MOTHER, G8 BROTHER G8 SISTER FH: brain tumor FH: breast cancer 19 MOTHER, FH: lung cancer FHx: peripheral neuropathy Hypertension 19 FATHER, Lung c 19 FATHER, Myocardial infarction 19 MOTHER, Neuro No Pertinent Family Hx, Hypertension Physical Exam Vital Signs Capillary Refill : General Appearance: WD/WN, no apparent distress Neck: non-tender, full range of motion Respiratory: lungs clear, normal breath sounds, no respiratory distress, no accessory muscle use Gastrointestinal: normal bowel sounds, non tender Extremities: normal range of motion, non-tender Neurologic/Psychiatric: alert, normal mood/affect, oriented x 3 Skin: normal color, warm/dry Skin Problem Location: lower extremities Skin Problem Character: other (There is swelling and redness to the right foot. There is packing to an ulcer to the medial dorsal aspect of the right great toe and to the plantar surface of the first MTP joint. There does appear to be some fluctuance here.) Progress/Results/Core Measures Results/Orders Lab Results Laboratory Tests Test 09/13/20 12:40 Range/Units White Blood Count 15.9 H 4.3-11.0 10^3/uL Red Blood Count 3.27 L 3.80-5.11 10^6/uL Hemoglobin 9.5 L 11.5-16.0 g/dL Hematocrit 30 L 35-52 % Mean Corpuscular Volume 93 80-99 fL Mean Corpuscular Hemoglobin 29 25-34 pg Mean Corpuscular Hemoglobin Concent 31 L 32-36 g/dL Red Cell Distribution Width 13.4 10.0-14.5 % Platelet Count 315 130-400 10^3/uL Mean Platelet Volume 9.5 9.0-12.2 fL Immature Granulocyte % (Auto) 1 % Neutrophils (%) (Auto) 77 H 42-75 % Lymphocytes (%) (Auto) 13 12-44 % Monocytes (%) (Auto) 7 0-12 % Eosinophils (%) (Auto) 1 0-10 % Basophils (%) (Auto) 0 0-10 % Neutrophils # (Auto) 12.3 H 1.8-7.8 10^3/uL Lymphocytes # (Auto) 2.1 1.0-4.0 10^3/uL Monocytes # (Auto) 1.1 H 0.0-1.0 10^3/uL Eosinophils # (Auto) 0.2 0.0-0.3 10^3/uL Basophils # (Auto) 0.0 0.0-0.1 10^3/uL Immature Granulocyte # (Auto) 0.2 H 0.0-0.1 10^3/uL Neutrophils % (Manual) 81 % Lymphocytes % (Manual) 13 % Monocytes % (Manual) 4 % Band Neutrophils 2 % Hypochromasia SLIGHT Sodium Level 132 L 135-145 MMOL/L Potassium Level 3.8 3.6-5.0 MMOL/L Chloride Level 97 L 98-107 MMOL/L Carbon Dioxide Level 26 21-32 MMOL/L Anion Gap 9 5-14 MMOL/L Blood Urea Nitrogen 11 7-18 MG/DL Creatinine 0.76 0.60-1.30 MG/DL Estimat Glomerular Filtration Rate > 60 BUN/Creatinine Ratio 14 Glucose Level 234 H 70-105 MG/DL Lactic Acid Level 1.24 0.50-2.00 MMOL/L Calcium Level 8.5 8.5-10.1 MG/DL Corrected Calcium 9.1 8.5-10.1 MG/DL Total Bilirubin 0.4 0.1-1.0 MG/DL Aspartate Amino Transf (AST/SGOT) 25 5-34 U/L Alanine Aminotransferase (ALT/SGPT) 28 0-55 U/L Alkaline Phosphatase 111 40-136 U/L Total Protein 6.9 6.4-8.2 GM/DL Albumin 3.2 3.2-4.5 GM/DL My Orders Orders - DEBBIE TAYLOR APRN Cbc With Automated Diff (09/13/20 12:35) Comprehensive Metabolic Panel (09/13/20 12:35) Ua Culture If Indicated (09/13/20 12:35) Ed Iv/Invasive Line Start (09/13/20 12:35) Blood Culture (09/13/20 12:35) Lactic Acid Analyzer (09/13/20 12:35) Foot, Right, 3 View (09/13/20 12:35) Manual Differential (09/13/20 12:40) Erythrocyte Sedimentation Rate (09/13/20 13:08) Hs C Reactive Protein (09/13/20 13:08) Diagnostic Imaging Diagonstic Imaging: Xray Comments NAME: [facility] REC#: [id number] PT STATUS: REG ER : 1955 PHYSICIAN: DEBBIE TAYLOR PURCHASING/RECEIVING ADMIT DATE: 09/13/20/ER Draft Date of Exam:09/13/20 FOOT, RIGHT, 3 VIEW INDICATION: Osteomyelitis. Ulcerative wound. COMPARISON: 09/09/2020 FINDINGS: 3 radiographic views of the right foot were obtained. There is generalized diffuse soft tissue edema and swelling. There is focal area of lucency involving the plantar soft tissues overlying the metatarsophalangeal joint spaces on the lateral view consistent with probable ulcer. Underlying osseous structures are stable. There is no new lytic lesion. Destructive changes are again identified at the 1st interphalangeal joint. Patient is status post previous partial amputation of the 3rd toe. No new acute fracture or dislocation is seen. No unexpected radiopaque foreign bodies are identified. IMPRESSION: 1. Soft tissue swelling with probable ulcer involving the plantar soft tissues at the metatarsophalangeal joint space. 2. No new or progressed underlying osteolytic process. Please note, however that osteomyelitis cannot be excluded based on radiographs alone. If there is concern for osteomyelitis, MRI is recommended. Dictated on workstation # [id number] Dict: 09/13/20 1304 Trans: 09/13/20 1321 [id number] Interpreted by: SALOMÓN BOOTH MD Electronically signed by: Departure Communication (Admissions) Did an incision and drainage over the plantar surface of the foot between the first and second metatarsals using 11 blade scalpel without anesthesia. She had no pain or sensation at all in her foot due to the neuropathy. I did collect a culture from deep within this cavity. There was no purulent material expressed. [id number] with Dr. Gayle, given the absence of tachycardia or fevers, the absence of an elevated lactic acid, recommends oral antibiotics he will see the patient on Thursday and schedule for transmetatarsal amputation and surgical debridement at that time. Impression Primary Impression: Diabetic ulcer of foot associated with diabetes mellitus due to underlying condition, with necrosis of muscle Disposition: ADMITTED INPATIENT Condition: Stable Admissions Decision to Admit Reason: Admit from ER (General) Decision to Admit/Date: Sep 13, 2020 Time/Decision to Admit Time: 13:30 Departure-Patient Inst. Decision time for Depature: 13:40 Referrals: TAYO SUTTON DO (PCP/Family) Primary Care Physician Patient Instructions: Diabetes in Older Adults Add. Discharge Instructions: . Keep this wrapped. See Dr. Gayle on Thursday and he will evaluate the wound and schedule you for surgical debridement next week. All discharge instructions reviewed with patient and/or family. Voiced understanding. Scripts Clindamycin HCl (Clindamycin HCl) 300 Mg Capsule 300 MG PO TID, #21 CAP Prov: DEBBIE ATYLOR APRN 09/13/20 DEBBIE TAYLOR APRN Sep 13, 2020 12:40
[2020-09-13 12:51] LABS: BASOPHILS % (AUTO) 0 % (0-10); EOSINOPHILS # (AUTO) 0.2 10^3/uL (0.0-0.3); EOSINOPHILS % (AUTO) 1 % (0-10); HEMATOCRIT 30 % (35-52); HEMOGLOBIN 9.5 g/dL (11.5-16.0); LYMPHOCYTES # (AUTO) 2.1 10^3/uL (1.0-4.0); LYMPHOCYTES % (AUTO) 13 % (12-44); MEAN CORPUSCULAR HEMOGLOBIN 29 pg (25-34); MEAN CORPUSCULAR HGB CONC 31 g/dL (32-36); MEAN CORPUSCULAR VOLUME 93 fL (80-99); MEAN PLATELET VOLUME 9.5 fL (9.0-12.2); MONOCYTES # (AUTO) 1.1 10^3/uL (0.0-1.0); MONOCYTES % (AUTO) 7 % (0-12); NEUTROPHILS # (AUTO) 12.3 10^3/uL (1.8-7.8); NEUTROPHILS % (AUTO) 77 % (42-75); PLATELET COUNT 315 10^3/uL (130-400); WHITE BLOOD COUNT 15.9 10^3/uL (4.3-11.0)
[2020-09-13 12:58] LABS: ALBUMIN 3.2 GM/DL (3.2-4.5)
[2020-09-13 12:59] LABS: CHLORIDE 97 MMOL/L (98-107); POTASSIUM 3.8 MMOL/L (3.6-5.0); SODIUM 132 MMOL/L (135-145)
[2020-09-13 13:00] LABS: CALCIUM 8.5 MG/DL (8.5-10.1)
[2020-09-13 13:01] LABS: GLUCOSE 234 MG/DL (70-105); TOTAL PROTEIN 6.9 GM/DL (6.4-8.2)
[2020-09-13 13:02] LABS: CARBON DIOXIDE 26 MMOL/L (21-32)
[2020-09-13 13:03] LABS: BILIRUBIN,TOTAL 0.4 MG/DL (0.1-1.0)
[2020-09-13 13:04] LABS: ALKALINE PHOSPHATASE 111 U/L (40-136)
[2020-09-13 13:05] LABS: CREATININE SERUM 0.76 MG/DL (0.60-1.30); GFR ESTIMATED > 60
[2020-09-13 13:06] LABS: BUN/CREATININE RATIO 14
[2020-09-13 13:07] LABS: ALANINE AMINOTRANSFERASE 28 U/L (0-55)
[2020-09-13 13:20] LABS: BAND NEUTROPHILS 2 %; HYPOCHROMASIA SLIGHT; LYMPHOCYTES % (MANUAL) 13 %; MONOCYTES % (MANUAL) 4 %; NEUTROPHILS % (MANUAL) 81 %
--- NOTE | 2020-09-13 13:22 | Diagnostic Imaging Report ---
INDICATION: Osteomyelitis. Ulcerative wound. COMPARISON: 09/09/2020 FINDINGS: 3 radiographic views of the right foot were obtained. There is generalized diffuse soft tissue edema and swelling. There is focal area of lucency involving the plantar soft tissues overlying the metatarsophalangeal joint spaces on the lateral view consistent with probable ulcer. Underlying osseous structures are stable. There is no new lytic lesion. Destructive changes are again identified at the 1st interphalangeal joint. Patient is status post previous partial amputation of the 3rd toe. No new acute fracture or dislocation is seen. No unexpected radiopaque foreign bodies are identified. IMPRESSION: 1. Soft tissue swelling with probable ulcer involving the plantar soft tissues at the metatarsophalangeal joint space. 2. No new or progressed underlying osteolytic process. Please note, however that osteomyelitis cannot be excluded based on radiographs alone. If there is concern for osteomyelitis, MRI is recommended. Dictated by: Dictated on workstation # [id number]
[2020-09-13] MEDS ORDERED: CLIN300C12 PO (13:41)
[2020-09-13 14:15] VITALS: BP 173/70
== END 2020-09-13 14:15 | disposition other institution (70) ==
LOC: EDUNIT# 12:09 → ER 12:12
DX: E11.621 Type 2 diabetes mellitus with foot ulcer (principal); K21.9 Gastro-esophageal reflux disease without esophagitis; I10 Essential (primary) hypertension; I25.10 Atherosclerotic heart disease of native coronary artery without angina pectoris; Z82.49 Family history of ischemic heart disease and other diseases of the circulatory system; Z83.3 Family history of diabetes mellitus; Z80.3 Family history of malignant neoplasm of breast; Z80.1 Family history of malignant neoplasm of trachea, bronchus and lung; Z95.5 Presence of coronary angioplasty implant and graft; Z87.891 Personal history of nicotine dependence; Z79.4 Long term (current) use of insulin; Z79.82 Long term (current) use of aspirin
CPT/HCPCS: 36415; 73630; 80053; 83605; 85007; 85027; 85652; 86141; 87040; 87070; 87205

== ENCOUNTER 2020-11-26 13:00 | Inpatient (IN) | payer BC, OTHER ==
[~2020-11-26] VITALS: Ht 165.1 cm; Wt 97.6 kg
[~2020-11-26 13:00] MED LIST changes: +CLIN300C12 PO
--- NOTE | 2020-11-26 13:51 | ED Integumentary General ---
General Chief Complaint: Lower Extremity Stated Complaint: R FOOT INFECTION Source: patient Exam Limitations: no limitations History of Present Illness Date Seen by Provider: Nov 26, 2020 Time Seen by Provider: 13:45 Initial Comments This is a healthy-appearing 65-year-old female who presents to the ER with complaints of right foot infection. She is a known diabetic with poor glucose control with her last A1c at 11. States that she sees Dr. Sarmiento for a ulcer at the base of her Right great toe every 10 days. States that she has been seeing him for the past 3 to 4 months. She woke today and noticed her right foot was red, swollen, and hot. She also noted an open area in the webspace between her right fourth and fifth toe. Called Dr. Irizarry cell phone who recommended she see urgent care for antibiotic treatment. However, at urgent care she reports they obtained x-ray and noted possible osteomyelitis. Sent her to the emergency room for further work-up and management. Reports a low-grade fever that started today took ibuprofen 400 mg at 9:00 this morning, reports feeling much improved. States her blood glucose has been running between the upper 100s and low 200s. Denies nausea, vomiting, abdominal pain. Allergies and Home Medications Allergies Coded Allergies: No Known Drug Allergies (Unverified , 04/02/20) Home Medications Amlodipine Besylate 5 Mg Tablet, 10 MG PO DAILY Prescribed by: KELLI QUINTANA on 09/10/20 1322 Aspirin 81 Mg Tab.chew, 81 MG PO DAILY, (Reported) Calcium Carbonate 300 Mg Tab.chew, 300-600 MG PO PRN PRN for HEARTBURN, (Reported) Cefdinir 300 Mg Capsule, 300 MG PO BID Prescribed by: KELLI QUINTANA on 09/10/20 1322 Clindamycin HCl 300 Mg Capsule, 300 MG PO TID Prescribed by: DEBBIE TAYLOR on 09/13/20 1341 Clopidogrel Bisulfate 75 Mg Tablet, 75 MG PO DAILY, (Reported) Docusate Sodium 100 Mg Capsule, 100-200 MG PO BID PRN for CONSTIPATION-1ST LINE, (Reported) Enalapril Maleate 20 Mg Tablet, 20 MG PO BID, (Reported) Furosemide 40 Mg Tablet, 40 MG PO DAILY PRN for FLUID RETENTION, (Reported) Gabapentin 300 Mg Capsule, 900 MG PO TID, (Reported) TAKES 3 (300MG) TABS Glimepiride 4 Mg Tablet, 8 MG PO DAILY, (Reported) TAKES 2 (4 MG) TABLETS Hydralazine HCl 50 Mg Tablet, 50 MG PO TID, (Reported) Insulin Aspart 100 Unit/1 Ml Vial, 12-16 UNITS SC BID, (Reported) Insulin Degludec 100 Unit/1 Ml Insuln.pen, 37 UNITS SC HS, (Reported) L.acidoph & Paracasei,B.lactis 1 Each Capsule, 1 EACH PO DAILY, (Reported) Metoprolol Succinate 200 Mg Tab.er.24h, 200 MG PO DAILY, (Reported) Pantoprazole Sodium 20 Mg Tablet.dr, 20 MG PO DAILY, (Reported) LAST FILLED 03-12-2020 #90/90 DAY SUPPLY Ropinirole HCl 0.5 Mg Tablet, 0.5 MG PO HS Prescribed by: KELLI QUINTANA on 09/10/20 1322 Tramadol HCl 50 Mg Tablet, 50 MG PO TID, (Reported) Zinc 50 Mg Tablet, 50 MG PO DAILY, (Reported) Patient Home Medication List Home Medication List Reviewed: Yes Review of Systems Review of Systems Constitutional: no symptoms reported EENTM: no symptoms reported Respiratory: no symptoms reported Cardiovascular: no symptoms reported Gastrointestinal: no symptoms reported Genitourinary: no symptoms reported Musculoskeletal: see HPI Skin: see HPI Psychiatric/Neurological: No Symptoms Reported Endocrine: No Symptoms Reported Hematologic/Lymphatic: No Symptoms Reported Past Ohbodbv-Jfkxul-Mvkrud Hx Patient Social History Type Used: Cigarettes Former Smoker, Quit: Apr 27, 1990 2nd Hand Smoke Exposure: Yes Recent Hopitalizations: Yes (right foot debridment 09/05/20) Immunizations Up To Date Tetanus Booster (TDap): Unknown PED Vaccines UTD: No Date of Pneumonia Vaccine: Oct 15, 2018 Date of Influenza Vaccine: Jun 14, 2019 Seasonal Allergies Seasonal Allergies: No Past Medical History Surgeries: Yes (right leg vein sx , cardiac stent , FOOT SURGERY) Coronary Stent, Tubal Ligation Respiratory: No Currently Using CPAP: No Currently Using BIPAP: No Cardiac: Yes (STENTS) Coronary Artery Disease, Hypertension, Peripheral Vascular Neurological: Yes Neuropathy 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 Disorders: No Female 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 Disorders: Denies [employer] History: Menopausal Sexually Transmitted Disease: No HIV/AIDS: No Genitourinary: Yes UTI-Chronic Gastrointestinal: Yes Gastroesophageal Reflux Musculoskeletal: Yes Fibromyalgia Endocrine: Yes Diabetes, Insulin dep HEENT: No (GLASSES) Loss of Vision: Denies Hearing Impairment: Denies Cancer: No Psychosocial: No Integumentary: Yes (diabetic ulcer right foot) Blood Disorders: No Adverse Reaction/Blood Tranf: No (N/A) Family Medical History Cardiovascular disease 19 MOTHER, G8 BROTHER G8 BROTHER Completed stroke 19 MOTHER, Diabetes mellitus 19 FATHER, 19 MOTHER, G8 BROTHER G8 SISTER FH: brain tumor FH: breast cancer 19 MOTHER, FH: lung cancer FHx: peripheral neuropathy Hypertension 19 FATHER, Lung c 19 FATHER, Myocardial infarction 19 MOTHER, Neuro No Pertinent Family Hx, Hypertension Physical Exam Vital Signs Vital Signs - First Documented 11/26/20 13:23 Temp 38.1 Pulse 93 Resp 17 B/P (MAP) 129/95 (106) Pulse Ox 98 O2 Delivery Room Air Capillary Refill : General Appearance: WD/WN, no apparent distress HEENT: PERRL/EOMI, normal ENT inspection Neck: full range of motion, normal inspection Cardiovascular: regular rate, rhythm, systolic murmur Respiratory: lungs clear, normal breath sounds, no respiratory distress Gastrointestinal: normal bowel sounds, non tender, soft Extremities: normal range of motion, non-tender, normal inspection Neurologic/Psychiatric: no motor/sensory deficits, alert, normal mood/affect, oriented x 3 Skin: normal color, warm/dry Skin Problem Location: other (webspaced of right 4th and 5th toe) Skin Problem Character: other (tunneling ulcer ) Progress/Results/Core Measures Results/Orders Lab Results Laboratory Tests Test 11/26/20 13:28 11/26/20 15:20 Range/Units White Blood Count 14.7 H 4.3-11.0 10^3/uL Red Blood Count 4.03 3.80-5.11 10^6/uL Hemoglobin 11.4 L 11.5-16.0 g/dL Hematocrit 36 35-52 % Mean Corpuscular Volume 90 80-99 fL Mean Corpuscular Hemoglobin 28 25-34 pg Mean Corpuscular Hemoglobin Concent 32 32-36 g/dL Red Cell Distribution Width 14.3 10.0-14.5 % Platelet Count 258 130-400 10^3/uL Mean Platelet Volume 9.3 9.0-12.2 fL Immature Granulocyte % (Auto) 1 % Neutrophils (%) (Auto) 83 H 42-75 % Lymphocytes (%) (Auto) 10 L 12-44 % Monocytes (%) (Auto) 6 0-12 % Eosinophils (%) (Auto) 0 0-10 % Basophils (%) (Auto) 0 0-10 % Neutrophils # (Auto) 12.2 H 1.8-7.8 10^3/uL Lymphocytes # (Auto) 1.4 1.0-4.0 10^3/uL Monocytes # (Auto) 0.9 0.0-1.0 10^3/uL Eosinophils # (Auto) 0.0 0.0-0.3 10^3/uL Basophils # (Auto) 0.0 0.0-0.1 10^3/uL Immature Granulocyte # (Auto) 0.1 0.0-0.1 10^3/uL Neutrophils % (Manual) 86 % Lymphocytes % (Manual) 10 % Monocytes % (Manual) 4 % Blood Morphology Comment NORMAL Prothrombin Time 13.9 12.2-14.7 SEC INR Comment 1.0 0.8-1.4 Activated Partial Thromboplast Time 47 H 24-35 SEC Sodium Level 134 L 135-145 MMOL/L Potassium Level 4.0 3.6-5.0 MMOL/L Chloride Level 98 98-107 MMOL/L Carbon Dioxide Level 25 21-32 MMOL/L Anion Gap 11 5-14 MMOL/L Blood Urea Nitrogen 20 H 7-18 MG/DL Creatinine 0.83 0.60-1.30 MG/DL Estimat Glomerular Filtration Rate > 60 BUN/Creatinine Ratio 24 Glucose Level 202 H 70-105 MG/DL Lactic Acid Level 1.67 0.50-2.00 MMOL/L Calcium Level 9.5 8.5-10.1 MG/DL Corrected Calcium 9.7 8.5-10.1 MG/DL Total Bilirubin 0.7 0.1-1.0 MG/DL Aspartate Amino Transf (AST/SGOT) 15 5-34 U/L Alanine Aminotransferase (ALT/SGPT) 16 0-55 U/L Alkaline Phosphatase 96 40-136 U/L Total Protein 7.9 6.4-8.2 GM/DL Albumin 3.8 3.2-4.5 GM/DL Urine Color DARK YELLOW Urine Clarity CLEAR Urine pH 5.5 5-9 Urine Specific [place] >=1.030 1.016-1.022 Urine Protein NEGATIVE NEGATIVE Urine Glucose (UA) NEGATIVE NEGATIVE Urine Ketones NEGATIVE NEGATIVE Urine Nitrite NEGATIVE NEGATIVE Urine Bilirubin NEGATIVE NEGATIVE Urine Urobilinogen 0.2 < = 1.0 MG/DL Urine Leukocyte Esterase NEGATIVE NEGATIVE Urine RBC (Auto) NEGATIVE NEGATIVE Urine RBC NONE /HPF Urine WBC 2-5 /HPF Urine Squamous Epithelial Cells 5-10 /HPF Urine Crystals NONE /LPF Urine Bacteria TRACE /HPF Urine Casts NONE /LPF Urine Mucus SMALL H /LPF Urine Culture Indicated NO My Orders Orders - LYNN DELEON APRN Cbc With Automated Diff (11/26/20 13:51) Comprehensive Metabolic Panel (11/26/20 13:51) Blood Culture (11/26/20 13:51) Sputum Culture (11/26/20 13:51) Urinalysis (11/26/20 13:51) Urine Culture (11/26/20 13:51) Protime With Inr (11/26/20 13:51) Partial Thromboplastin Time (11/26/20 13:51) Ed Iv/Invasive Line Start (11/26/20 13:51) Wound Culture (11/26/20 13:51) Lactic Acid Analyzer (11/26/20 13:51) Manual Differential (11/26/20 13:28) Foot, Right, 3 View (11/26/20 13:51) Mri Rt Lower Ext W/O Con (11/26/20 15:48) Vancomycin Injection (Vancomycin Injecti (11/26/20 16:00) Medications Given in ED Current Medications Medications Dose Ordered Sig/[place] Route Start Time Stop Time Status Last Admin Dose Admin Vancomycin HCl 1750 mg/Sodium Chloride 500 ml @ 258 mls/hr ONCE ONCE IV 11/26/20 16:00 11/26/20 17:56 DC 11/26/20 17:25 258 MLS/HR Vital Signs/I&O 11/26/20 13:23 Temp 38.1 Pulse 93 Resp 17 B/P (MAP) 129/95 (106) Pulse Ox 98 O2 Delivery Room Air Progress Progress Note : Progress Note Pt. examined and in no acute distress. Was sent over from [facility] urgent care for concerns with osteomyeliits in her right foot. Basic labs, Lactic, and X-ray right foot ordered. X-ray concerning for osteomyelitis, will order MRI of foot. MRI indicated likely dx. for osteomyelitis. Discussed case with Dr. Maria. Will admit on Vancomycin and Zosyn. Reviewed recommendations with patient, she is agreeable with plan. Diagnostic Imaging Diagonstic Imaging: Xray Plain Films/CT/US/NM/MRI: other (right foot ) Comments NAME: BRYSON ROBB [facility] REC#: [id number] PT STATUS: REG ER : 1955 PHYSICIAN: LYNN DELEON APRN ADMIT DATE: 11/26/20/ER Signed Date of Exam:11/26/20 FOOT, RIGHT, 3 VIEW INDICATION: Possible osteomyelitis of the right 4th toe. Time of Exam: 2:01 PM 3 views of the right foot were obtained. There has been amputation of a portion of the 3rd toe. There is some irregularity involving the proximal aspect of the proximal phalanx 4th toe. Osteomyelitis cannot be excluded. There is also some erosive changes involving the proximal phalanx of the great toe. Metatarsals are intact. Midfoot and hindfoot are unremarkable apart from a large plantar calcaneal spur. IMPRESSION: There are areas of irregularity involving the proximal phalanges of the great toe and 4th toe. Osteomyelitis cannot be entirely excluded. Dictated by: Dictated on workstation # [id number] Dict: 11/26/20 1505 Trans: 11/26/[address] [facility] [id number] Interpreted by: JUDI HUNT MD Electronically signed by: JUDI HUNT MD 11/26/20 1554 Reviewed: Reviewed by Me Diagonstic Imaging: MRI Plain Films/CT/US/NM/MRI: other (foot ) Comments NAME: BRYSON ROBB [facility] REC#: [id number] PT STATUS: REG ER : 1955 PHYSICIAN: LYNN DELEON APRN ADMIT DATE: 11/26/20/ER Signed Date of Exam:11/26/20 MRI RT LOWER EXT W/O CON INDICATION: Foot pain towards the forefoot. Possible osteomyelitis of the right 4th toe. Ulceration of the 4th and 5th toes. Partial amputation of the 3rd toe. EXAMINATION: MRI of the right lower extremity without contrast on 11/26/2020. FINDINGS: The lack of contrast limits evaluation for osteomyelitis. Nonetheless, there is T2 hyperintensity involving the proximal 4th phalanx and to a lesser degree the proximal mid and distal 5th phalanges. These findings in combination with the abnormality seen on recent radiographs would make osteomyelitis a primary consideration. There is a tiny focus of susceptibility artifact along the plantar aspect of the 5th toe near the level of the proximal interphalangeal joint, perhaps a foreign body. There is diffuse soft tissue hyperintensity on T2-weighted imaging surrounding the 4th and 5th toes. More focal soft tissue abnormality is seen about the 4th metatarsophalangeal joint. A tiny abscess in the region is difficult to exclude without contrast. There is an overlying soft tissue abnormality, consistent with the known ulceration. The remaining osseous structures appear unremarkable. There is a nonspecific soft tissue abnormality noted overlying the 1st metatarsophalangeal joint towards the plantar aspect of the foot, perhaps another focal ulcer, correlate clinically. Underlying soft tissue T2 hyperintensity is noted. No measurable or drainable collections of fluid in the region. There are diffuse degenerative changes throughout the great toe. IMPRESSION: 1. Abnormal osseous findings predominantly involving the 4th toe and possibly the 5th toe. The findings are limited due to the lack of contrast. These findings are suspicious for osteomyelitis. 2. Likely septic joint at the 4th metatarsophalangeal joint with an adjacent osseous fragment not mentioned above but noted at the base of the proximal 4th phalanx. The edema in the region could be caused by the fracture as well. 3. Foreign body within the plantar aspect of the 5th toe. 4. Diffuse edema and/or cellulitis throughout the soft tissues of the forefoot with a soft tissue abnormality along the plantar aspect of the great toe. Dictated by: Dictated on workstation # [id number] Dict: 11/26/20 1646 Trans: 11/26/20 1714 [id number] Interpreted by: TERRENCE GILL MD Electronically signed by: TERRENCE GILL MD 11/26/20 1714 Reviewed: Reviewed by Me Departure Communication (Admissions) Time/Spoke to Admitting Phy: 16:58 Impression Primary Impression: Diabetic foot ulcer Disposition: ADMITTED INPATIENT Condition: Stable Admissions Decision to Admit Reason: Admit from ER (General) Decision to Admit/Date: Nov 26, 2020 Time/Decision to Admit Time: 16:30 Departure-Patient Inst. Referrals: [facility] (PCP/Family) Primary Care Physician LYNN DELEON APRN Nov 26, 2020 13:51
[2020-11-26 14:00] LABS: BASOPHILS % (AUTO) 0 % (0-10); EOSINOPHILS % (AUTO) 0 % (0-10); HEMATOCRIT 36 % (35-52); HEMOGLOBIN 11.4 g/dL (11.5-16.0); LYMPHOCYTES # (AUTO) 1.4 10^3/uL (1.0-4.0); LYMPHOCYTES % (AUTO) 10 % (12-44); MEAN CORPUSCULAR HEMOGLOBIN 28 pg (25-34); MEAN CORPUSCULAR HGB CONC 32 g/dL (32-36); MEAN CORPUSCULAR VOLUME 90 fL (80-99); MEAN PLATELET VOLUME 9.3 fL (9.0-12.2); MONOCYTES # (AUTO) 0.9 10^3/uL (0.0-1.0); MONOCYTES % (AUTO) 6 % (0-12); NEUTROPHILS # (AUTO) 12.2 10^3/uL (1.8-7.8); NEUTROPHILS % (AUTO) 83 % (42-75); PLATELET COUNT 258 10^3/uL (130-400); WHITE BLOOD COUNT 14.7 10^3/uL (4.3-11.0)
[2020-11-26 14:06] LABS: PROTHROMBIN TIME PATIENT 13.9 SEC (12.2-14.7)
[2020-11-26 14:12] LABS: ALANINE AMINOTRANSFERASE 16 U/L (0-55); ALBUMIN 3.8 GM/DL (3.2-4.5); ALKALINE PHOSPHATASE 96 U/L (40-136); BILIRUBIN,TOTAL 0.7 MG/DL (0.1-1.0); BUN/CREATININE RATIO 24; CALCIUM 9.5 MG/DL (8.5-10.1); CARBON DIOXIDE 25 MMOL/L (21-32); CHLORIDE 98 MMOL/L (98-107); CREATININE SERUM 0.83 MG/DL (0.60-1.30); GFR ESTIMATED > 60; GLUCOSE 202 MG/DL (70-105); SODIUM 134 MMOL/L (135-145); TOTAL PROTEIN 7.9 GM/DL (6.4-8.2)
[2020-11-26 14:20] LABS: LYMPHOCYTES % (MANUAL) 10 %; MONOCYTES % (MANUAL) 4 %; NEUTROPHILS % (MANUAL) 86 %; RBC MORPH NORMAL
--- NOTE | 2020-11-26 15:12 | Diagnostic Imaging Report ---
INDICATION: Possible osteomyelitis of the right 4th toe. Time of Exam: 2:01 PM 3 views of the right foot were obtained. There has been amputation of a portion of the 3rd toe. There is some irregularity involving the proximal aspect of the proximal phalanx 4th toe. Osteomyelitis cannot be excluded. There is also some erosive changes involving the proximal phalanx of the great toe. Metatarsals are intact. Midfoot and hindfoot are unremarkable apart from a large plantar calcaneal spur. IMPRESSION: There are areas of irregularity involving the proximal phalanges of the great toe and 4th toe. Osteomyelitis cannot be entirely excluded. Dictated by: Dictated on workstation # [id number]
[2020-11-26 15:37] LABS: COLOR,URINE DARK YELLOW
[2020-11-26 15:38] LABS: BILIRUBIN,URINE NEGATIVE (NEGATIVE); CLARITY,URINE CLEAR; GLUCOSE, URINE (UA) NEGATIVE (NEGATIVE); KETONES,URINE NEGATIVE (NEGATIVE); LEUKOCYTE ESTERASE ,URINE NEGATIVE (NEGATIVE); NITRITE,URINE NEGATIVE (NEGATIVE); PH,URINE 5.5 (5-9); PROTEIN,URINE NEGATIVE (NEGATIVE)
[2020-11-26 15:39] LABS: BACTERIA,URINE TRACE /HPF
[2020-11-26] MEDS ORDERED: VANCOMYCIN INJECTION 1,750 MG in NS IV 500 ML 500 ML IV ONE (16:00)
--- NOTE | 2020-11-26 17:00 | Diagnostic Imaging Report ---
INDICATION: Foot pain towards the forefoot. Possible osteomyelitis of the right 4th toe. Ulceration of the 4th and 5th toes. Partial amputation of the 3rd toe. EXAMINATION: MRI of the right lower extremity without contrast on 11/26/2020. FINDINGS: The lack of contrast limits evaluation for osteomyelitis. Nonetheless, there is T2 hyperintensity involving the proximal 4th phalanx and to a lesser degree the proximal mid and distal 5th phalanges. These findings in combination with the abnormality seen on recent radiographs would make osteomyelitis a primary consideration. There is a tiny focus of susceptibility artifact along the plantar aspect of the 5th toe near the level of the proximal interphalangeal joint, perhaps a foreign body. There is diffuse soft tissue hyperintensity on T2-weighted imaging surrounding the 4th and 5th toes. More focal soft tissue abnormality is seen about the 4th metatarsophalangeal joint. A tiny abscess in the region is difficult to exclude without contrast. There is an overlying soft tissue abnormality, consistent with the known ulceration. The remaining osseous structures appear unremarkable. There is a nonspecific soft tissue abnormality noted overlying the 1st metatarsophalangeal joint towards the plantar aspect of the foot, perhaps another focal ulcer, correlate clinically. Underlying soft tissue T2 hyperintensity is noted. No measurable or drainable collections of fluid in the region. There are diffuse degenerative changes throughout the great toe. IMPRESSION: 1. Abnormal osseous findings predominantly involving the 4th toe and possibly the 5th toe. The findings are limited due to the lack of contrast. These findings are suspicious for osteomyelitis. 2. Likely septic joint at the 4th metatarsophalangeal joint with an adjacent osseous fragment not mentioned above but noted at the base of the proximal 4th phalanx. The edema in the region could be caused by the fracture as well. 3. Foreign body within the plantar aspect of the 5th toe. 4. Diffuse edema and/or cellulitis throughout the soft tissues of the forefoot with a soft tissue abnormality along the plantar aspect of the great toe. Dictated by: Dictated on workstation # [id number]
[2020-11-26] MEDS ORDERED: diphenhydrAMINE 50 MG/ML INJ (BENADRYL) IVP ONE (17:45)
[2020-11-26] MEDS ORDERED: ONDANSETRON 4 MG/2 ML (SDV) Z0FRAN IV PRN (20:15)
[2020-11-26] MEDS ORDERED: PIPERACILLIN/TAZO 4.5 GM/NS 100 ML IV NR ×2 (20:15)
[2020-11-26 21:18] VITALS: BP 157/75
[2020-11-26] MEDS ORDERED: PIPERACILLIN/TAZO 4.5 GM VIAL (ZOSYN) IV ONE (21:26)
[2020-11-26] MEDS ORDERED: RT-ALBUTEROL SULF 2.5 MG/3 ML PRE-MIX VIAL INH PRN (21:30)
[2020-11-26] MEDS: NS IV 1000 ML 1,000 ML IV SCH (21:43)
[2020-11-26] MEDS: GABAPENTIN 300 MG (NEURONTIN) CAP PO SCH (22:03)
[2020-11-26 23:47] VITALS: BP 186/76
[2020-11-27] MEDS ORDERED: PIPERACILLIN/TAZO 4.5 GM VIAL (ZOSYN) IV ONE (02:30)
[2020-11-27] MEDS: PIPERACILLIN/TAZO 4.5 GM/NS 100 ML IV SCH ×6 (02:44→17:51)
[2020-11-27] MEDS: ACETAMINOPHEN 325 MG TABLET PO PRN ×3 (02:46→21:55)
[2020-11-27 03:21] VITALS: BP 182/76
[2020-11-27 05:44] LABS: BASOPHILS % (AUTO) 0 % (0-10); EOSINOPHILS % (AUTO) 0 % (0-10); HEMATOCRIT 33 % (35-52); HEMOGLOBIN 10.2 g/dL (11.5-16.0); LYMPHOCYTES # (AUTO) 1.4 10^3/uL (1.0-4.0); LYMPHOCYTES % (AUTO) 12 % (12-44); MEAN CORPUSCULAR HEMOGLOBIN 28 pg (25-34); MEAN CORPUSCULAR HGB CONC 31 g/dL (32-36); MEAN CORPUSCULAR VOLUME 89 fL (80-99); MEAN PLATELET VOLUME 9.1 fL (9.0-12.2); MONOCYTES # (AUTO) 0.8 10^3/uL (0.0-1.0); MONOCYTES % (AUTO) 8 % (0-12); NEUTROPHILS # (AUTO) 8.8 10^3/uL (1.8-7.8); NEUTROPHILS % (AUTO) 79 % (42-75); PLATELET COUNT 245 10^3/uL (130-400); WHITE BLOOD COUNT 11.2 10^3/uL (4.3-11.0)
[2020-11-27 06:18] LABS: ALANINE AMINOTRANSFERASE 15 U/L (0-55); ALBUMIN 3.4 GM/DL (3.2-4.5); ALKALINE PHOSPHATASE 83 U/L (40-136); BILIRUBIN,TOTAL 0.6 MG/DL (0.1-1.0); BUN/CREATININE RATIO 20; CALCIUM 8.9 MG/DL (8.5-10.1); CARBON DIOXIDE 21 MMOL/L (21-32); CHLORIDE 102 MMOL/L (98-107); CREATININE SERUM 0.81 MG/DL (0.60-1.30); GFR ESTIMATED > 60; GLUCOSE 154 MG/DL (70-105); POTASSIUM 3.2 MMOL/L (3.6-5.0); SODIUM 135 MMOL/L (135-145)
[2020-11-27 08:00] VITALS: BP 147/66
[2020-11-27] MEDS: VANCOMYCIN 1250 MG/NS 250 ML IVPB IV SCH ×4 (08:28→19:31)
[2020-11-27] MEDS: GABAPENTIN 300 MG (NEURONTIN) CAP PO SCH ×3 (08:31→19:31)
[2020-11-27] MEDS: diphenhydrAMINE 25 MG TAB (BENADRYL) PO PRN ×2 (08:33→19:31)
[2020-11-27] MEDS ORDERED: LIRA0.6P3 SQ (09:58)
[2020-11-27] MEDS ORDERED: ATOR80TA76 PO (09:58)
[2020-11-27] MEDS ORDERED: CHOL10007 PO (10:00)
--- NOTE | 2020-11-27 11:37 | History & Physical ---
JUSTIN COLE MED STUDENT 11/27/20 1137: History of Present Illness History of Present Illness Reason for visit/HPI Rhoda is a 65 yo female that presented to the ER yesterday for osteomyelitis of the right foot in between the 4th and 5th toes. Pt stated that she first went to urgent care where an x-ray was competed. The findings were consistent with osteomyelitis so she was told to go to the ED where an MRI confirmed this diagnosis. Pt stated that she noted the lesion for the past 2-3 days and was putting gauze on it and treating it like the diabetic foot ulcer she has on the right foot at as well. The ulcer, which has been present for 10 days, is at the base of her great toe. Pt stated that she has had uncontrolled diabetes for many years leading to neuropathy. Pt states that she can't feel the end of her feet so there is no pain associated. She has been wearing a pressure boot to keep weight off of her ulcer and also walking on her heal. Pt stated that the intense smell of infection as well as her right foot becoming hot, swollen, and red is what caused her to get treatment. Pt tried taking one ibuprofen 400mg yesterday at 9am, which didn't help. Pt has a PMH significant for diabetes, hypertension, and 5 stents in her heart. 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 Pt stated that over the past 2 weeks she has been trying to control her diabetes and stated that her sugars have been averaging between 130 and 140. Pts only other complaint was of constipation for the past 5 days that stool softeners have not been able to solve. Date of Admission Nov 26, 2020 at 16:58 Date Seen by a Provider: Nov 27, 2020 Time Seen by a Provider: 08:45 I consulted on this patient on 11/27/20 11:20 Attending Physician Vera Maria MD Admitting Physician [facility] Consult Allergies and Home Medications Allergies Coded Allergies: No Known Drug Allergies (Unverified , 04/02/20) Home Medications Aspirin 81 Mg Tab.chew, 81 MG PO DAILY, (Reported) Atorvastatin Calcium 80 Mg Tablet, 80 MG PO DAILY, (Reported) Calcium Carbonate 300 Mg Tab.chew, 300-600 MG PO PRN PRN for HEARTBURN, (Reported) Cholecalciferol (Vitamin D3) 25 Mcg Capsule, 25 MCG PO DAILY, (Reported) Clopidogrel Bisulfate 75 Mg Tablet, 75 MG PO DAILY, (Reported) Docusate Sodium 100 Mg Capsule, 100-200 MG PO BID PRN for CONSTIPATION-1ST LINE, (Reported) Furosemide 40 Mg Tablet, 40 MG PO DAILY PRN for FLUID RETENTION, (Reported) Gabapentin 300 Mg Capsule, 900 MG PO TID, (Reported) TAKES 3 (300MG) TABS Glimepiride 4 Mg Tablet, 4 MG PO BID, (Reported) Hydralazine HCl 50 Mg Tablet, 50 MG PO TID, (Reported) Insulin Aspart 100 Unit/1 Ml Vial, 12 UNITS SC AC, (Reported) Insulin Degludec 100 Unit/1 Ml Insuln.pen, 40 UNITS SC HS, (Reported) L.acidoph & Paracasei,B.lactis 1 Each Capsule, 1 EACH PO DAILY, (Reported) Liraglutide 0.6 Mg/0.1 Ml Pen.injctr, 1.8 MG SQ HS, (Reported) Metoprolol Succinate 200 Mg Tab.er.24h, 200 MG PO DAILY, (Reported) Pantoprazole Sodium 20 Mg Tablet.dr, 20 MG PO DAILY, (Reported) Tramadol HCl 50 Mg Tablet, 50 MG PO TID PRN for PAIN-MODERATE (5-7), (Reported) Zinc 50 Mg Tablet, 50 MG PO DAILY, (Reported) Past Lztcyiq-Dwbjuf-Rfatjz Hx Patient Social History Marrital Status: Smoking Status: Former Smoker Former Smoker, Quit: Apr 27, 1990 2nd Hand Smoke Exposure: Yes Recent Hopitalizations: Yes (right foot debridment 09/05/20) Have you traveled recently?: No Alcohol Use?: No Pt feels they are or have been: No Immunizations Up To Date Tetanus Booster (TDap): Unknown Pediatric: No Date of Pneumonia Vaccine: Oct 15, 2018 Date of Influenza Vaccine: Jun 14, 2019 Seasonal Allergies Seasonal Allergies: No Surgeries Yes (right leg vein sx , cardiac stent , FOOT SURGERY) Coronary Stent, Tubal Ligation Respiratory No Pneumonia Currently Using CPAP: No Currently Using BIPAP: No Cardiovascular Yes (STENTS) Coronary Artery Disease, Hypertension, Peripheral Vascular Neurological Yes Neuropathy 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 System Hx 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 Disorders: No Sexually Transmitted Disease: No HIV/AIDS: No Female 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 Disorders: Denies 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 Genitourinary Yes UTI-Chronic Gastrointestinal Yes Gastroesophageal Reflux Musculoskeletal Yes Fibromyalgia Endocrine History of Endocrine Disorders: Yes Endocrine Disorders: Diabetes, Insulin dep HEENT History of HEENT Disorders: No (GLASSES) Loss of Vision: Denies Hearing Impairment: Denies Cancer No Psychosocial History of Psychiatric Problem: No Integumentary History of Skin or Integumenta: Yes (diabetic ulcer right foot) Blood Transfusions History of Blood Disorders: No Adverse Reaction to a Blood Tr: No (N/A) Family Medical History Significant Family History: No Pertinent Family Hx, Hypertension Family Hx: Cardiovascular disease 19 MOTHER, G8 BROTHER G8 BROTHER Completed stroke 19 MOTHER, Diabetes mellitus 19 FATHER, 19 MOTHER, G8 BROTHER G8 SISTER FH: brain tumor FH: breast cancer 19 MOTHER, FH: lung cancer FHx: peripheral neuropathy Hypertension 19 FATHER, Lung c 19 FATHER, Myocardial infarction 19 MOTHER, Neuro Review of Systems Constitutional: chills; No dizziness, No fever, No weakness EENTM: no symptoms reported; No hoarseness, No throat pain Respiratory: no symptoms reported; No cough, No dyspnea on exertion, No hemoptysis, No short of breath Cardiovascular: No chest pain; Hx of Intervention Gastrointestinal: No abdominal pain; constipation; No diarrhea, No loss of appetite Genitourinary: no symptoms reported; No dysuria, No frequency, No hesitancy Musculoskeletal: No joint pain; joint swelling Skin: change in color, lesions (between 4th and 5th toe on right foot), other (diabetic foot ulcer on right foot) Psychiatric/Neurological: No Symptoms Reported Physical Exam Vital Signs Vital Signs - First Documented 11/26/20 11/26/20 13:23 21:18 Temp 38.1 Pulse 93 Resp 17 B/P (MAP) 129/95 (106) Pulse Ox 98 O2 Delivery Room Air FiO2 21 Capillary Refill : Less Than 3 Seconds Height, Weight, BMI Height: 5'5.50" Weight: 195lbs. 0.0oz. 88.891484wg; 35.25 BMI Method:Stated General Appearance: No Apparent Distress, WD/WN HEENT: PERRL/EOMI, Pharynx Normal Neck: Non Tender, Supple Respiratory: Chest Non Tender, Lungs Clear, Normal Breath Sounds, No Accessory Muscle Use, No Respiratory Distress Cardiovascular: Regular Rate, Rhythm, No Edema, No Gallop, Systolic Murmur Gastrointestinal: Non Tender Rectal: Deferred Extremity: No Calf Tenderness, Swelling Neurologic/Psychiatric: Alert, Oriented x3, No Motor/Sensory Deficits, Normal Mood/Affect Skin: Normal Color, Warm/Dry Lymphatic: No Adenopathy Assessment/Plan Assessment and Plan Assessment: osteomyelitis of the right foot diabetic foot ulcer on right foot diabetes- blood glucose currently 154 hypertension- current BP of 147/66 leukocytosis- WBC of 11.2, down from 14.7 yesterday Plan: continue antibiotic use non-weight bearing distal right foot general surgery consult wound care VERA MARIA MD 11/27/202104: Allergies and Home Medications Allergies Coded Allergies: No Known Drug Allergies (Unverified , 04/02/20) Home Medications Aspirin 81 Mg Tab.chew, 81 MG PO DAILY, (Reported) Atorvastatin Calcium 80 Mg Tablet, 80 MG PO DAILY, (Reported) Calcium Carbonate 300 Mg Tab.chew, 300-600 MG PO PRN PRN for HEARTBURN, (Reported) Cholecalciferol (Vitamin D3) 25 Mcg Capsule, 25 MCG PO DAILY, (Reported) Clopidogrel Bisulfate 75 Mg Tablet, 75 MG PO DAILY, (Reported) Docusate Sodium 100 Mg Capsule, 100-200 MG PO BID PRN for CONSTIPATION-1ST LINE, (Reported) Furosemide 40 Mg Tablet, 40 MG PO DAILY PRN for FLUID RETENTION, (Reported) Gabapentin 300 Mg Capsule, 900 MG PO TID, (Reported) TAKES 3 (300MG) TABS Glimepiride 4 Mg Tablet, 4 MG PO BID, (Reported) Hydralazine HCl 50 Mg Tablet, 50 MG PO TID, (Reported) Insulin Aspart 100 Unit/1 Ml Vial, 12 UNITS SC AC, (Reported) Insulin Degludec 100 Unit/1 Ml Insuln.pen, 40 UNITS SC HS, (Reported) L.acidoph & Paracasei,B.lactis 1 Each Capsule, 1 EACH PO DAILY, (Reported) Liraglutide 0.6 Mg/0.1 Ml Pen.injctr, 1.8 MG SQ HS, (Reported) Metoprolol Succinate 200 Mg Tab.er.24h, 200 MG PO DAILY, (Reported) Pantoprazole Sodium 20 Mg Tablet.dr, 20 MG PO DAILY, (Reported) Tramadol HCl 50 Mg Tablet, 50 MG PO TID PRN for PAIN-MODERATE (5-7), (Reported) Zinc 50 Mg Tablet, 50 MG PO DAILY, (Reported) Patient Home Medication List Home Medication List Reviewed: Yes Past Qycnqvx-Hedisf-Aovhmj Hx Family Medical History Family Hx: Cardiovascular disease 19 MOTHER, G8 BROTHER G8 BROTHER Completed stroke 19 MOTHER, Diabetes mellitus 19 FATHER, 19 MOTHER, G8 BROTHER G8 SISTER FH: brain tumor FH: breast cancer 19 MOTHER, FH: lung cancer FHx: peripheral neuropathy Hypertension 19 FATHER, Lung c 19 FATHER, Myocardial infarction 19 MOTHER, Neuro Review of Systems Constitutional: chills; No dizziness, No fever, No weakness EENTM: no symptoms reported; No hoarseness, No mouth pain, No throat pain Respiratory: no symptoms reported; No cough, No dyspnea on exertion, No hemoptysis, No short of breath Cardiovascular: no symptoms reported; No chest pain, No palpitations Gastrointestinal: No abdominal pain; constipation; No nausea, No vomiting Genitourinary: no symptoms reported; No dysuria, No frequency Musculoskeletal: joint swelling, muscle pain Skin: change in color, lesions (between 4th and 5th toe on right foot), other (diabetic foot ulcer on right foot) Psychiatric/Neurological: No Symptoms Reported Physical Exam General Appearance: No Apparent Distress, WD/WN Neck: Full Range of Motion, Non Tender, Supple Respiratory: Chest Non Tender, Lungs Clear, Normal Breath Sounds, No Respiratory Distress Cardiovascular: Regular Rate, Rhythm, Systolic Murmur Gastrointestinal: Normal Bowel Sounds, Non Tender, Soft; No Guarding Back: No CVA Tenderness, No Vertebral Tenderness Extremity: No Calf Tenderness, Swelling Neurologic/Psychiatric: Alert, Oriented x3, No Motor/Sensory Deficits, Normal Mood/Affect Skin: Other (Deep track between 4-5 toe on the right foot with maceration and ttp, purulent drainage, wound on plantar surface , not well healing, + purulent drainage) Assessment/Plan Assessment and Plan Problems: (1) Osteomyelitis Status: Acute Qualifiers: Assessment & Plan: - Vanc/Zosyn D2, General surgery consult for debridment and wound care, wound care nurse consulted, MRI reviewed with patient (2) Diabetic ulcer of foot associated with diabetes mellitus due to underlying condition, with necrosis of muscle Status: Acute Qualifiers: Qualified Codes: E08.621 - Diabetes mellitus due to underlying condition with foot ulcer; L97.513 - Non-pressure chronic ulcer of other part of right foot with necrosis of muscle (3) Cellulitis of foot associated with diabetes mellitus Status: Acute (4) Insulin dependent diabetes mellitus with complications Status: Chronic Assessment & Plan: - A1c pending, home insulin restarted at reduced doses due to diet, SSI/Accuchecks (5) 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 (6) HTN (hypertension) Status: Acute Qualifiers: Qualified Codes: I10 - Essential (primary) hypertension Assessment & Plan: Restarted home meds (7) CAD (coronary artery disease) Status: Chronic Qualifiers: Qualified Codes: I25.10 - Atherosclerotic heart disease of [place] coronary artery without angina pectoris Assessment & Plan: - Restarted home meds (8) DVT prophylaxis Assessment & Plan: - SCDs, holding lovenox due to possible surgery Admission Diagnosis Admission Status: Inpatient Order (span 2 midnights) Reason for Inpatient Admission: Needs IV antibiotics and surgical consult, patient failed outpatient treatment Supervisory-Addendum Brief Verification & Attestation Participated in pt care: history, physical Personally performed: exam Care discussed with: Medical Student Procedures: n/a Verification and Attestation of Medical Student E/M Service A medical student performed and documented this service in my presence. I reviewed and verified all information documented by the medical student and made modifications to such information, when appropriate. I personally performed the physical exam and medical decision making. Vera Maria, Nov 27, 2020,21:07 JUSTIN COLE MED STUDENT Nov 27, 2020 11:37 VERA MARIA MD Nov 27, 2020 21:05
[2020-11-27 12:00] VITALS: BP 192/86
--- NOTE | 2020-11-27 15:27 | Consultation - Surgery ---
ELENITA RAJPUT MED STUDENT 11/27/20 1527: History of Present Illness History of Present Illness Patient Consulted On(oleg/time) 11/27/20 15:20 Date Seen by Provider: Nov 27, 2020 Time Seen by Provider: 14:25 History of Present Illness Consult requested by inpatient medicine service for presumed osteomyelitis/diabetic ulcer of right foot. Patient presents with complaints of a new "sore" between her fourth and fifth toes on her right foot. Reports noticing the sore on Thursday morning. States she was initially treating it with gauze and frequent dressing changes at home. Yesterday she noticed her foot become increasingly red, warm, swollen, and with purulent discharge. She then called Dr. Sarmiento who told her to seek treatment. She presented to urgent care and had a xray taken of the R foot, after she was sent to to ED for further evaluation due to suspicion of osteomyelitis in that foot. Currently she denies pain in her foot, she has diabetic neuropathy and reports feeling nothing in either foot below the ankle. She has been using a protective boot at home and been walking more so on her heels to help keep pressure off that foot. Reports yellowish drainage from the sore at times. She has not tried other treatment modalities aside from dressing changes. Allergies and Home Medications Allergies Coded Allergies: No Known Drug Allergies (Unverified , 04/02/20) Home Medications Aspirin 81 Mg Tab.chew, 81 MG PO DAILY, (Reported) Atorvastatin Calcium 80 Mg Tablet, 80 MG PO DAILY, (Reported) Calcium Carbonate 300 Mg Tab.chew, 300-600 MG PO PRN PRN for HEARTBURN, (Reported) Cholecalciferol (Vitamin D3) 25 Mcg Capsule, 25 MCG PO DAILY, (Reported) Clopidogrel Bisulfate 75 Mg Tablet, 75 MG PO DAILY, (Reported) Docusate Sodium 100 Mg Capsule, 100-200 MG PO BID PRN for CONSTIPATION-1ST LINE, (Reported) Furosemide 40 Mg Tablet, 40 MG PO DAILY PRN for FLUID RETENTION, (Reported) Gabapentin 300 Mg Capsule, 900 MG PO TID, (Reported) TAKES 3 (300MG) TABS Glimepiride 4 Mg Tablet, 4 MG PO BID, (Reported) Hydralazine HCl 50 Mg Tablet, 50 MG PO TID, (Reported) Insulin Aspart 100 Unit/1 Ml Vial, 12 UNITS SC AC, (Reported) Insulin Degludec 100 Unit/1 Ml Insuln.pen, 40 UNITS SC HS, (Reported) L.acidoph & Paracasei,B.lactis 1 Each Capsule, 1 EACH PO DAILY, (Reported) Liraglutide 0.6 Mg/0.1 Ml Pen.injctr, 1.8 MG SQ HS, (Reported) Metoprolol Succinate 200 Mg Tab.er.24h, 200 MG PO DAILY, (Reported) Pantoprazole Sodium 20 Mg Tablet.dr, 20 MG PO DAILY, (Reported) Tramadol HCl 50 Mg Tablet, 50 MG PO TID PRN for PAIN-MODERATE (5-7), (Reported) Zinc 50 Mg Tablet, 50 MG PO DAILY, (Reported) Past Oiffhjf-Ygfasr-Lwuryo Hx Patient Social History Smoking Status: Former Smoker Former Smoker, Quit: Apr 27, 1990 Type Used: Cigarettes 2nd Hand Smoke Exposure: Yes Recent Hopitalizations: Yes (right foot debridment 09/05/20) Alcohol Use?: No Have you traveled recently?: No Immunizations Up To Date Tetanus Booster (TDap): Unknown PED Vaccines UTD: No Date of Pneumonia Vaccine: Oct 15, 2018 Date of Influenza Vaccine: Jun 14, 2019 Seasonal Allergies Seasonal Allergies: No Surgeries History of Surgeries: Yes (right leg vein sx , cardiac stent , FOOT SURGERY) Surgeries: Amputation (right foot third toe partial amputation), Coronary Stent, Tubal Ligation Respiratory History of Respiratory Disorde: No Cardiovascular History of Cardiac Disorders: Yes (STENTS) Cardiac Disorders: Coronary Artery Disease, High Cholesterol, Hypertension, Peripheral Vascular Neurological History of Neurological Disord: Yes Neurological Disorders: Neuropathy (diabetic) 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 System Hx 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 Disorders: No Sexually Transmitted Disease: No HIV/AIDS: No Female 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 Disorders: 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 Genitourinary History of Genitourinary Disor: Yes Genitourinary Disorders: UTI-Chronic Gastrointestinal History of Gastrointestinal Di: Yes Gastrointestinal Disorders: Gastroesophageal Reflux Musculoskeletal History of Musculoskeletal Dis: Yes Musculoskeletal Disorders: Fibromyalgia Endocrine History of Endocrine Disorders: Yes Endocrine Disorders: Diabetes, Insulin dep HEENT History of HEENT Disorders: No (GLASSES) Loss of Vision: Denies Hearing Impairment: Denies Cancer History of Cancer: No Psychosocial History of Psychiatric Problem: No Integumentary History of Skin or Integumenta: Yes (diabetic ulcer right foot) Blood Transfusions History of Blood Disorders: No Adverse Reaction to a Blood Tr: No (N/A) Family Medical History Significant Family History: Hypertension Family Medial History: Cardiovascular disease 19 MOTHER, G8 BROTHER G8 BROTHER Completed stroke 19 MOTHER, Diabetes mellitus 19 FATHER, 19 MOTHER, G8 BROTHER G8 SISTER FH: brain tumor FH: breast cancer 19 MOTHER, FH: lung cancer FHx: peripheral neuropathy Hypertension 19 FATHER, Lung c 19 FATHER, Myocardial infarction 19 MOTHER, Neuro Review of Systems-General Constitutional: No chills, No diaphoresis, No dizziness, No fever EENTM: No blurred vision, No double vision, No throat swelling Respiratory: No cough, No dyspnea on exertion, No short of breath Cardiovascular: No chest pain, No edema, No palpitations Gastrointestinal: No abdominal pain, No constipation, No diarrhea, No nausea, No vomiting Genitourinary: No dysuria, No frequency Musculoskeletal: No back pain, No muscle stiffness Skin: change in hair/nails (thickened/yellow nails), dryness (bilat feet/ankle dry and scaly ) Psychiatric/Neurological: Denies Anxiety, Denies Depressed All Other Systems Reviewed Negative Unless Noted: Yes Physical Exam-General Problems Physical Exam Vital Signs Vital Signs - First Documented 11/26/20 11/26/20 13:23 21:18 Temp 38.1 Pulse 93 Resp 17 B/P (MAP) 129/95 (106) Pulse Ox 98 O2 Delivery Room Air FiO2 21 Capillary Refill : Less Than 3 Seconds General Appearance: no apparent distress Eyes: Bilateral Eye PERRL, Bilateral Eye EOMI HEENT: PERRL/EOMI, pharynx normal Neck: non-tender, supple Respiratory: chest non-tender, lungs clear, normal breath sounds, no accessory muscle use Cardiovascular: normal peripheral pulses, regular rate, rhythm, no edema, systolic murmur ([place] best at RSB) Peripheral Pulses: 1+ Dorsalis Pedis (R), 1+ Left Dors-Pedis (L); 2+ Radial Pulses (R) Gastrointestinal: normal bowel sounds, non tender; No distended, No guarding, No rebound Rectal: deferred Back: no CVA tenderness, no vertebral tenderness Extremities: non-tender, no calf tenderness, other (Right foot with multiple ulcers) Neurologic/Psychiatric: alert, normal mood/affect, oriented x 3, sensory deficit (diabetic neuropathy) Skin: warm/dry, other (Right foot with multiple diabetic ulcers) Lymphatic: no adenopathy Data Review Labs Laboratory Tests 11/26/20 20:48: Glucometer 108 11/27/20 05:26: White Blood Count 11.2H, Red Blood Count 3.66L, Hemoglobin 10.2L, Hematocrit 33L , Mean Corpuscular Volume 89, Mean Corpuscular Hemoglobin 28, Mean Corpuscular Hemoglobin Concent 31L, Red Cell Distribution Width 14.4, Platelet Count 245, Mean Platelet Volume 9.1, Immature Granulocyte % (Auto) 1, Neutrophils (%) (Auto) 79H, Lymphocytes (%) (Auto) 12, Monocytes (%) (Auto) 8, Eosinophils (%) (Auto) 0, Basophils (%) (Auto) 0, Neutrophils # (Auto) 8.8H, Lymphocytes # (Auto) 1.4, Monocytes # (Auto) 0.8, Eosinophils # (Auto) 0.0, Basophils # (Auto) 0.0, Immature Granulocyte # (Auto) 0.1, Sodium Level 135, Potassium Level 3.2L, Chloride Level 102, Carbon Dioxide Level 21, Anion Gap 12, Blood Urea Nitrogen 16, Creatinine 0.81, Estimat Glomerular Filtration Rate > 60, BUN/Creatinine Ratio 20, Glucose Level 154H, Calcium Level 8.9, Corrected Calcium 9.4, Total Bilirubin 0.6, Aspartate Amino Transf (AST/SGOT) 13, Alanine Aminotransferase (ALT/SGPT) 15, Alkaline Phosphatase 83, Total Protein 7.0, Albumin 3.4 Microbiology 11/26/20 Urine Culture - Final, Complete >=3 Gram Positive Isolates 11/26/20 Gram Stain - Final, Resulted 11/26/20 Wound Culture - Preliminary, Resulted Slight Growth Present Radiology NAME: [facility]ON [facility] REC#: [id number] PT STATUS: REG ER : 1955 PHYSICIAN: LYNN DELEON APRN ADMIT DATE: 11/26/20/ER Signed Date of Exam:11/26/20 FOOT, RIGHT, 3 VIEW INDICATION: Possible osteomyelitis of the right 4th toe. Time of Exam: 2:01 PM 3 views of the right foot were obtained. There has been amputation of a portion of the 3rd toe. There is some irregularity involving the proximal aspect of the proximal phalanx 4th toe. Osteomyelitis cannot be excluded. There is also some erosive changes involving the proximal phalanx of the great toe. Metatarsals are intact. Midfoot and hindfoot are unremarkable apart from a large plantar calcaneal spur. IMPRESSION: There are areas of irregularity involving the proximal phalanges of the great toe and 4th toe. Osteomyelitis cannot be entirely excluded. Dictated by: Dictated on workstation # [id number] Dict: 11/26/20 1505 Trans: 11/26/20 1554 [facility] [id number] Interpreted by: JUDI HUNT MD Electronically signed by: JUDI HUNT MD 11/26/20 1554 NAME: BRYSON ROBB [facility] REC#: [id number] PT STATUS: REG ER : 1955 PHYSICIAN: LYNN DELEON APRN ADMIT DATE: 11/26/20/ER Signed Date of Exam:11/26/20 MRI RT LOWER EXT W/O CON INDICATION: Foot pain towards the forefoot. Possible osteomyelitis of the right 4th toe. Ulceration of the 4th and 5th toes. Partial amputation of the 3rd toe. EXAMINATION: MRI of the right lower extremity without contrast on 11/26/2020. FINDINGS: The lack of contrast limits evaluation for osteomyelitis. Nonetheless, there is T2 hyperintensity involving the proximal 4th phalanx and to a lesser degree the proximal mid and distal 5th phalanges. These findings in combination with the abnormality seen on recent radiographs would make osteomyelitis a primary consideration. There is a tiny focus of susceptibility artifact along the plantar aspect of the 5th toe near the level of the proximal interphalangeal joint, perhaps a foreign body. There is diffuse soft tissue hyperintensity on T2-weighted imaging surrounding the 4th and 5th toes. More focal soft tissue abnormality is seen about the 4th metatarsophalangeal joint. A tiny abscess in the region is difficult to exclude without contrast. There is an overlying soft tissue abnormality, consistent with the known ulceration. The remaining osseous structures appear unremarkable. There is a nonspecific soft tissue abnormality noted overlying the 1st metatarsophalangeal joint towards the plantar aspect of the foot, perhaps another focal ulcer, correlate clinically. Underlying soft tissue T2 hyperintensity is noted. No measurable or drainable collections of fluid in the region. There are diffuse degenerative changes throughout the great toe. IMPRESSION: 1. Abnormal osseous findings predominantly involving the 4th toe and possibly the 5th toe. The findings are limited due to the lack of contrast. These findings are suspicious for osteomyelitis. 2. Likely septic joint at the 4th metatarsophalangeal joint with an adjacent osseous fragment not mentioned above but noted at the base of the proximal 4th phalanx. The edema in the region could be caused by the fracture as well. 3. Foreign body within the plantar aspect of the 5th toe. 4. Diffuse edema and/or cellulitis throughout the soft tissues of the forefoot with a soft tissue abnormality along the plantar aspect of the great toe. Dictated by: Dictated on workstation # [id number] Dict: 11/26/20 1646 Trans: 11/26/20 1714 [id number] Interpreted by: TERRENCE GILL MD Electronically signed by: TERRENCE GILL MD 11/26/20 1714 Assessment/Plan Assessment/Plan Admission Diagonsis Diabetic foot ulcer, osteomyelitis R foot, leukocytosis, Assessment/Plan osteomyelitis of the right foot diabetic foot ulcer on right foot Anemia leukocytosis hypokalemia diabetes mellitus insulin dependent HTN CAD HLP GERD Continue abx coverage Continue wound care/dressing changes q day and PRN Manage blood glucoses tightly via sliding scale insulin Follow daily CBC to monitor WBC and HGB BMP tomorrow, follow and replete potassium as needed Diet as tolerated Continue conservative management Vitals per floor protocol NIKHIL ROMERO DO 11/28/20 1904: History of Present Illness History of Present Illness History of Present Illness Consult requested by Dr. Maria for right foot osteomyelitis diabetic foot ulcer. Patient is a 65-year-old female who currently sees Dr. Sarmiento for a right foot diabetic ulcer. Patient has a new sore between her fourth and fifth toes which is having some drainage. She states this started at least last Thursday. She was doing dressing changes at home but nothing was really making it better. She had increasing skin changes where it was red warm and swollen with purulent drainage. Due to the worsening and suspicion of osteomyelitis patient was sent to the emergency department where she was further evaluated and admitted. Patient with MRI suggestive of osteomyelitis of the fourth and fifth toe and likely septic joint of the fourth at the metatarsal head. Patient currently denies any nausea vomiting fever sweats chills shortness of breath or chest pain. Allergies and Home Medications Allergies Coded Allergies: No Known Drug Allergies (Unverified , 04/02/20) Home Medications Aspirin 81 Mg Tab.chew, 81 MG PO DAILY, (Reported) Atorvastatin Calcium 80 Mg Tablet, 80 MG PO DAILY, (Reported) Calcium Carbonate 300 Mg Tab.chew, 300-600 MG PO PRN PRN for HEARTBURN, (Reported) Cholecalciferol (Vitamin D3) 25 Mcg Capsule, 25 MCG PO DAILY, (Reported) Clopidogrel Bisulfate 75 Mg Tablet, 75 MG PO DAILY, (Reported) Docusate Sodium 100 Mg Capsule, 100-200 MG PO BID PRN for CONSTIPATION-1ST LINE, (Reported) Furosemide 40 Mg Tablet, 40 MG PO DAILY PRN for FLUID RETENTION, (Reported) Gabapentin 300 Mg Capsule, 900 MG PO TID, (Reported) TAKES 3 (300MG) TABS Glimepiride 4 Mg Tablet, 4 MG PO BID, (Reported) Hydralazine HCl 50 Mg Tablet, 50 MG PO TID, (Reported) Insulin Aspart 100 Unit/1 Ml Vial, 12 UNITS SC AC, (Reported) Insulin Degludec 100 Unit/1 Ml Insuln.pen, 40 UNITS SC HS, (Reported) L.acidoph & Paracasei,B.lactis 1 Each Capsule, 1 EACH PO DAILY, (Reported) Liraglutide 0.6 Mg/0.1 Ml Pen.injctr, 1.8 MG SQ HS, (Reported) Metoprolol Succinate 200 Mg Tab.er.24h, 200 MG PO DAILY, (Reported) Pantoprazole Sodium 20 Mg Tablet.dr, 20 MG PO DAILY, (Reported) Tramadol HCl 50 Mg Tablet, 50 MG PO TID PRN for PAIN-MODERATE (5-7), (Reported) Zinc 50 Mg Tablet, 50 MG PO DAILY, (Reported) Patient Home Medication List Home Medication List Reviewed: Yes Past Couyxxs-Zpwqqz-Briggq Hx Reviewed Nursing Assessment Reviewed/Agree w Nursing PMH: Yes Family Medical History Significant Family History: No Pertinent Family Hx Family Medial History: Cardiovascular disease 19 MOTHER, G8 BROTHER G8 BROTHER Completed stroke 19 MOTHER, Diabetes mellitus 19 FATHER, 19 MOTHER, G8 BROTHER G8 SISTER FH: brain tumor FH: breast cancer 19 MOTHER, FH: lung cancer FHx: peripheral neuropathy Hypertension 19 FATHER, Lung c 19 FATHER, Myocardial infarction 19 MOTHER, Neuro Review of Systems-General Constitutional: No chills, No diaphoresis, No dizziness, No fever EENTM: No blurred vision, No throat swelling Respiratory: No cough, No dyspnea on exertion Cardiovascular: No chest pain Gastrointestinal: No abdominal pain, No nausea, No vomiting Genitourinary: No dysuria, No frequency Musculoskeletal: No back pain, No muscle stiffness Skin: change in hair/nails (thickened/yellow nails), dryness (bilat feet/ankle dry and scaly ), other (right foot ulcer plantar surface) Psychiatric/Neurological: Denies Anxiety, Denies Depressed All Other Systems Reviewed Negative Unless Noted: Yes (Negative excepted noted.) Physical Exam-General Problems Physical Exam General Appearance: WD/WN, no apparent distress HEENT: PERRL/EOMI, normal ENT inspection Neck: non-tender, supple Respiratory: chest non-tender, no respiratory distress, no accessory muscle use Cardiovascular: regular rate, rhythm, no edema Gastrointestinal: non tender, soft, no organomegaly; No distended, No guarding, No rebound Rectal: deferred Back: no CVA tenderness, no vertebral tenderness Extremities: non-tender, no calf tenderness, other (Right foot with ulceration 1st metatarsal plantar surface, open wound between 4/5th toes slight purulent drainage) Neurologic/Psychiatric: alert, normal mood/affect, oriented x 3, sensory deficit (diabetic neuropathy) Skin: warm/dry, other (Right foot with slight erythema 4/5 th toes, plantar ulceration) Lymphatic: no adenopathy Assessment/Plan Assessment/Plan Assessment/Plan osteomyelitis of the right foot diabetic foot ulcer on right foot Anemia leukocytosis hypokalemia diabetes mellitus insulin dependent HTN CAD HLP GERD Continue abx coverage Continue wound care/dressing changes q day and PRN Patient requesting Dr. Sarmiento, he will return tomorrow, will have him notified tomorrow Will need surgical intervention. Manage blood glucoses tightly via sliding scale insulin Supervisory-Addendum Brief Verification & Attestation Participated in pt care: history, MDM, physical Personally performed: exam, history, MDM, supervision of care Care discussed with: Medical Student Procedures: n/a Results interpretation: Verified all documentation Verification and Attestation of Medical Student E/M Service A medical student performed and documented this service in my presence. I reviewed and verified all information documented by the medical student and made modifications to such information, when appropriate. I personally performed the physical exam and medical decision making. Nikhil Romero, Nov 27, 2020,19:23 ELENITA RAJPUT MED STUDENT Nov 27, 2020 15:27 NIKHIL ROMERO DO Nov 28, 2020 19:04
[2020-11-27 16:00] VITALS: BP 143/64
[2020-11-27] MEDS: NS IV 1000 ML 1,000 ML IV SCH (16:25)
[2020-11-27 20:59] VITALS: BP 179/62
[2020-11-27] MEDS ORDERED: hydrALAZINE (APRESOLINE) 25 MG TAB ONE (21:48)
[2020-11-27] MEDS: hydrALAZINE (APRESOLINE) 25 MG TAB PO SCH (21:56)
[2020-11-28] VITALS: BP 164/60
[2020-11-28] MEDS: PIPERACILLIN/TAZO 4.5 GM/NS 100 ML IV SCH ×6 (01:19→16:55)
[2020-11-28 03:43] VITALS: BP 135/62
[2020-11-28] MEDS ORDERED: TROUGH ORDER-PHARMACY XX NR (05:00)
[2020-11-28 06:06] LABS: BASOPHILS % (AUTO) 0 % (0-10); EOSINOPHILS # (AUTO) 0.1 10^3/uL (0.0-0.3); EOSINOPHILS % (AUTO) 1 % (0-10); HEMATOCRIT 31 % (35-52); HEMOGLOBIN 9.7 g/dL (11.5-16.0); LYMPHOCYTES % (AUTO) 21 % (12-44); MEAN CORPUSCULAR HEMOGLOBIN 28 pg (25-34); MEAN CORPUSCULAR HGB CONC 31 g/dL (32-36); MEAN CORPUSCULAR VOLUME 90 fL (80-99); MEAN PLATELET VOLUME 9.2 fL (9.0-12.2); MONOCYTES % (AUTO) 11 % (0-12); NEUTROPHILS # (AUTO) 6.5 10^3/uL (1.8-7.8); NEUTROPHILS % (AUTO) 67 % (42-75); PLATELET COUNT 227 10^3/uL (130-400); WHITE BLOOD COUNT 9.7 10^3/uL (4.3-11.0)
[2020-11-28 06:32] LABS: VANCOMYCIN,TROUGH 14.4 UG/ML (10.0-20.0)
[2020-11-28 06:34] LABS: ALANINE AMINOTRANSFERASE 19 U/L (0-55); ALBUMIN 3.2 GM/DL (3.2-4.5); ALKALINE PHOSPHATASE 80 U/L (40-136); BILIRUBIN,TOTAL 0.4 MG/DL (0.1-1.0); BUN/CREATININE RATIO 17; CALCIUM 8.5 MG/DL (8.5-10.1); CARBON DIOXIDE 26 MMOL/L (21-32); CHLORIDE 105 MMOL/L (98-107); GFR ESTIMATED > 60; POTASSIUM 3.3 MMOL/L (3.6-5.0); SODIUM 141 MMOL/L (135-145); TOTAL PROTEIN 6.7 GM/DL (6.4-8.2)
[2020-11-28 06:43] LABS: GLUCOSE 120 MG/DL (70-105)
[2020-11-28] MEDS: inSUlin ASPART (NovoLOG) 1 UNIT/0.01 ML (CHARGE PER UNIT) SC SCH ×3 (06:44→16:57)
[2020-11-28] MEDS: VANCOMYCIN 1250 MG/NS 250 ML IVPB IV SCH ×2 (06:44)
[2020-11-28] MEDS: diphenhydrAMINE 25 MG TAB (BENADRYL) PO PRN ×2 (07:34→19:56)
[2020-11-28] MEDS: PANTOPRAZOLE 20 MG TABLET (PROTONIX) PO SCH (07:38)
[2020-11-28] MEDS: CLOPIDOGREL 75 MG (PLAVIX) TABLET PO SCH (07:38)
[2020-11-28] MEDS: GABAPENTIN 300 MG (NEURONTIN) CAP PO SCH ×3 (07:39→19:56)
[2020-11-28] MEDS: ASPIRIN 81 MG CHEW (CHILDREN'S ASA) PO SCH (07:39)
[2020-11-28] MEDS: meTOprolol SUCCINATE 100 MG (TOPROL XL) TAB PO SCH (07:39)
[2020-11-28] MEDS: hydrALAZINE (APRESOLINE) 25 MG TAB PO SCH ×3 (07:40→19:56)
[2020-11-28 08:00] VITALS: BP 167/69
--- NOTE | 2020-11-28 11:31 | Progress Note ---
Subjective Subjective Date Seen by Provider: Nov 28, 2020 Time Seen by Provider: 08:40 Rhoda was laying in moderate pain alert and oriented when I entered the room this morning. Pt had complaints of headache, fatigue, mild abdominal pain, and right sided foot pain. She described the pain as shooting and 8/10 on the pain scale. Pt described feeling that her leg was swollen and hot distal to the right calf. Pt stated that she had a BM yesterday and is not longer constipated. Pt described eating and drinking well but stated that she doesn't like the food so finds herself eating less. Review of Systems General: Fatigue Gastrointestinal: Abdominal Pain (mild, diffuse) Musculoskeletal: leg pain (right distal leg and foot) All Other Systems Reviewed All Other Systems Reviewed: Yes Objective Exam Vital Signs Vital Signs - First Documented 11/26/20 11/26/20 13:23 21:18 Temp 38.1 Pulse 93 Resp 17 B/P (MAP) 129/95 (106) Pulse Ox 98 O2 Delivery Room Air FiO2 21 Capillary Refill : Less Than 3 Seconds General Appearance: No Apparent Distress, WD/WN Eyes: Bilateral Eye PERRL, Bilateral Eye EOMI HEENT: PERRL/EOMI, Pharynx Normal Neck: Full Range of Motion, Non Tender, Supple Respiratory: Chest Non Tender, Lungs Clear, Normal Breath Sounds, No Accessory Muscle Use, No Respiratory Distress Cardiovascular: Regular Rate, Rhythm, No Gallop, Systolic Murmur Gastrointestinal: Normal Bowel Sounds, No Pulsatile Mass, Soft; No Guarding Extremity: Calf Tenderness, Pedal Edema, Swelling (right foot) Neurologic/Psychiatric: Alert, Oriented x3, No Motor/Sensory Deficits, Normal Mood/Affect, talent agent II-XII Norm as Tested Skin: Normal Color, Warm/Dry, Other (Deep track between 4-5 toe on the right foot with maceration and ttp, purulent drainage, wound on plantar surface , not well healing, + purulent drainage) Lymphatic: No Adenopathy Results Lab Laboratory Tests 11/27/20 16:12: Glucometer 247H 11/27/20 21:45: Glucometer 264H 11/28/20 05:25: White Blood Count 9.7, Red Blood Count 3.45L, Hemoglobin 9.7L, Hematocrit 31L, Mean Corpuscular Volume 90, Mean Corpuscular Hemoglobin 28, Mean Corpuscular Hemoglobin Concent 31L, Red Cell Distribution Width 14.1, Platelet Count 227, M rut Platelet Volume 9.2, Immature Granulocyte % (Auto) 1, Neutrophils (%) (Auto) 67, Lymphocytes (%) (Auto) 21, Monocytes (%) (Auto) 11, Eosinophils (%) (Auto) 1, Basophils (%) (Auto) 0, Neutrophils # (Auto) 6.5, Lymphocytes # (Auto) 2.0, Monocytes # (Auto) 1.0, Eosinophils # (Auto) 0.1, Basophils # (Auto) 0.0, Immature Granulocyte # (Auto) 0.1, Sodium Level 141, Potassium Level 3.3L, Chloride Level 105, Carbon Dioxide Level 26, Anion Gap 10, Blood Urea Nitrogen 15, Creatinine 0.90, Estimat Glomerular Filtration Rate > 60, BUN/Creatinine Ratio 17, Glucose Level 120H, Calcium Level 8.5, Corrected Calcium 9.1, Total Bilirubin 0.4, Aspartate Amino Transf (AST/SGOT) 20, Alanine Aminotransferase (ALT/SGPT) 19, Alkaline Phosphatase 80, Total Protein 6.7, Albumin 3.2, Vancomycin Level Trough 14.4 11/28/20 05:27: Glucometer 124H Microbiology 11/26/20 Urine Culture - Final, Complete >=3 Gram Positive Isolates 11/26/20 Blood Culture - Preliminary, Resulted No growth 11/26/20 Gram Stain - Final, Resulted 11/26/20 Wound Culture - Preliminary, Resulted Slight Growth Present Assessment/Plan Assessment/Plan Admission Dx Assessment: osteomyelitis of the right foot diabetic foot ulcer on right foot diabetes- blood glucose currently 124 hypertension- current BP of 135/62 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 Plan: continue antibiotic use continue pain medication non-weight bearing distal right foot general surgery consult wound care echo Problems: (1) Osteomyelitis Qualifiers: Assessment & Plan: - Vanc/Zosyn D2, General surgery consult for debridment and wound care, wound care nurse consulted, MRI reviewed with patient 11/28: D3 Angelita/Ang, Dr Sarmiento to see patient today, Patient will likely need PICC line (2) Diabetic ulcer of foot associated with diabetes mellitus due to underlying condition, with necrosis of muscle Qualifiers: Qualified Codes: E08.621 - Diabetes mellitus due to underlying condition with foot ulcer; L97.513 - Non-pressure chronic ulcer of other part of right foot with necrosis of muscle (3) Cellulitis of foot associated with diabetes mellitus (4) Insulin dependent diabetes mellitus with complications Assessment & Plan: - A1c pending, home insulin restarted at reduced doses due to diet, SSI/Accuchecks 11/28: A1c pending, discussed the importance of blood sugar control and wound healing (5) 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 (6) HTN (hypertension) Qualifiers: Qualified Codes: I10 - Essential (primary) hypertension Assessment & Plan: Restarted home meds (7) CAD (coronary artery disease) Qualifiers: Qualified Codes: I25.10 - Atherosclerotic heart disease of [place] coronary artery without angina pectoris Assessment & Plan: - Restarted home meds (8) DVT prophylaxis Assessment & Plan: - SCDs, holding lovenox due to possible surgery Admission Dx Assessment: osteomyelitis of the right foot diabetic foot ulcer on right foot diabetes- blood glucose currently 154 hypertension- current BP of 147/66 leukocytosis- WBC of 11.2, down from 14.7 yesterday Plan: continue antibiotic use non-weight bearing distal right foot general surgery consult wound care Clinical Quality Measures Admission Status Admission Dx Assessment: osteomyelitis of the right foot diabetic foot ulcer on right foot diabetes- blood glucose currently 154 hypertension- current BP of 147/66 leukocytosis- WBC of 11.2, down from 14.7 yesterday Plan: continue antibiotic use non-weight bearing distal right foot general surgery consult wound care Supervisory-Addendum Brief Verification & Attestation Participated in pt care: history, physical Personally performed: exam, history Care discussed with: Medical Student Procedures: n/a Verification and Attestation of Medical Student E/M Service A medical student performed and documented this service in my presence. I reviewed and verified all information documented by the medical student and made modifications to such information, when appropriate. I personally performed the physical exam and medical decision making. Vera Maria, Nov 28, 2020,18:54 JUSTIN COLE MED STUDENT Nov 28, 2020 11:31 VERA MARIA MD Nov 28, 2020 18:54
[2020-11-28 12:00] VITALS: BP 147/66
[2020-11-28] MEDS: NS IV 1000 ML 1,000 ML IV SCH (12:25)
[2020-11-28] MEDS: LACTOBACILLUS ACIDOPHILUS (PROBIOTIC) CAPSULE PO SCH ×2 (12:25→16:58)
[2020-11-28 16:09] VITALS: BP 171/77
[2020-11-28] MEDS: VANCOMYCIN 1500 MG/NS 500 ML IVPB IV SCH ×2 (16:58)
--- NOTE | 2020-11-28 18:54 | Podiatry Progress Note ---
Standard Progress Note Progress Notes/Assess & Plan Date Seen by a Provider: Nov 28, 2020 Time Seen by a Provider: 18:48 Progress/Assessment & Plan Consultation dictated. Continue with wound care daily right foot x2 wounds. Discussed surgery for osteomyelitis right 4th and 5th toes. She would like to have surgery done by myself. It will likely be an amputation of the right 4th and 5th toes, Thursday afternoon. Final Diagnosis Osteomyelitis right 4th and 5th toes, cellulitis right foot, diabetic neuropathy, chronic ulceration (horton grade 3) MARIBEL KIRK DPM Nov 28, 2020 18:54
[2020-11-28 19:35] VITALS: BP 171/72
--- NOTE | 2020-11-28 22:00 | CONSULTATION REPORT ---
DATE OF SERVICE: 11/28/2020 REASON FOR CONSULTATION: Cellulitis, right foot. HISTORY OF PRESENT ILLNESS: This 65-year-old female was admitted through the ER secondary to an infection of the right foot. This patient is well known to my office and has dealt with several ulcerations of the right foot. She has also had a previous partial amputation of the right third toe. She reported a few days ago of having some redness associated with the right foot and she was encouraged to go through the ER urgent care. She did so and a subsequent admission after the ER visit was initiated. The patient had an MRI indicating osteomyelitis of the right fourth and fifth toes. She has been treated with IV antibiotics up to this point. Cultures were taken in the ER, which indicated gram-positive cocci in chains. No final report has been given. PHYSICAL EXAMINATION: LOWER EXTREMITY: The patient has palpable dorsalis pedis pulse, palpable posterior tibial pulse on the right. Cap refill time is less than 3 seconds to the right hallux. NEUROLOGIC: The patient has absent protective sensation per 10-gram monofilament wire examination on the right and left foot. DERMATOLOGIC: The patient has a full thickness wound to the plantar lateral aspect of the right fourth toe that measures approximately 1 cm in diameter. The wound probes down to the bone of the base of the proximal phalanx of the right fourth digit. Fibrotic and granular tissue was present. Some surrounding erythema. According to the patient, this has improved over previous examination. There is a full thickness wound to the plantar aspect of the right first metatarsal head that measures approximately 15 x 12 mm and approximately 7 mm in depth, granular base. No gross signs of infection. There is no open lesion to the right first webspace. There is increase in calor to the right forefoot associated with the dorsal lateral aspect of the digits surrounding the fourth and fifth digits. The MRI report indicates: 1. Abnormal osseous findings predominantly involving the fourth toe and possibly the fifth toe. The findings are limited due to the lack of contrast. These findings are suspicious for osteomyelitis. 2. Likely a septic joint at the fourth metatarsophalangeal joint with an adjacent osseous fragment not mentioned above, but noted at the base of the proximal phalanx. The edema in the region could be caused by the fracture as well. 3. Foreign body within the plantar aspect of the fifth toe. 4. Diffuse edema and/or cellulitis throughout the soft tissue of the forefoot with a soft tissue abnormality along the plantar aspect of the great toe. ASSESSMENT: 1. Osteomyelitis, right fourth and fifth toes. 2. Diabetic neuropathy. 3. Ulceration, Doizer grade III, right fourth toe. 4. Dozier grade II right first metatarsal head area. PLAN: Various treatment options were discussed with the patient today. We discussed conservative and surgical options. The patient would like to have a combination of antibiotics and surgical intervention after risks and complications were discussed at length. No guarantees were extended to the patient and she is willing to proceed. We talked about an amputation of the right fourth and fifth toes as well as exploration into the metatarsals to remove any visualized or observed osseous or soft tissue abnormalities due to recurrent infection. She understands that there may be followup procedures for delayed primary closure and/or for removal of some of the other lesser toes to allow for less bony prominences. She understands that if she continues to have chronic ulcerations and loses the right foot, she is likely to have problems associated with the left lower extremity and if she loses both of her feet and/or legs, her life expectancy reduces dramatically. She understands the severity and life implications associated with these procedures and problems and is willing to proceed. Instead of having Dr. Madison perform the procedure tomorrow, she prefers that I do it on Thursday, which was my availability. The patient opted to have the surgery on to Thursday afternoon. Job ID: [id number] DocumentID: [id number] Dictated Date: 11/28/2020 19:02:32 Remote Control Mirror Installer Date: 11/28/2020 21:59:13 Dictated By: GAURI CUMMINGS
[2020-11-29] VITALS (8 sets, daily range): BP systolic 157–182; BP diastolic 62–77
[2020-11-29] MEDS: PIPERACILLIN/TAZO 4.5 GM/NS 100 ML IV SCH ×6 (04:47→17:39)
[2020-11-29 05:58] LABS: BASOPHILS % (AUTO) 0 % (0-10); EOSINOPHILS # (AUTO) 0.3 10^3/uL (0.0-0.3); EOSINOPHILS % (AUTO) 2 % (0-10); HEMATOCRIT 28 % (35-52); HEMOGLOBIN 8.5 g/dL (11.5-16.0); LYMPHOCYTES # (AUTO) 2.1 10^3/uL (1.0-4.0); LYMPHOCYTES % (AUTO) 17 % (12-44); MEAN CORPUSCULAR HEMOGLOBIN 28 pg (25-34); MEAN CORPUSCULAR HGB CONC 30 g/dL (32-36); MEAN CORPUSCULAR VOLUME 91 fL (80-99); MEAN PLATELET VOLUME 9.3 fL (9.0-12.2); MONOCYTES % (AUTO) 8 % (0-12); NEUTROPHILS # (AUTO) 8.9 10^3/uL (1.8-7.8); NEUTROPHILS % (AUTO) 72 % (42-75); PLATELET COUNT 227 10^3/uL (130-400); WHITE BLOOD COUNT 12.3 10^3/uL (4.3-11.0)
[2020-11-29] MEDS: VANCOMYCIN 1500 MG/NS 500 ML IVPB IV SCH ×4 (06:04→17:21)
[2020-11-29] MEDS: diphenhydrAMINE 25 MG TAB (BENADRYL) PO PRN ×2 (06:04→17:22)
[2020-11-29 06:17] LABS: ALANINE AMINOTRANSFERASE 21 U/L (0-55); ALBUMIN 3.1 GM/DL (3.2-4.5); ALKALINE PHOSPHATASE 72 U/L (40-136); BILIRUBIN,TOTAL 0.4 MG/DL (0.1-1.0); BUN/CREATININE RATIO 14; CALCIUM 8.5 MG/DL (8.5-10.1); CARBON DIOXIDE 21 MMOL/L (21-32); CHLORIDE 106 MMOL/L (98-107); CREATININE SERUM 0.77 MG/DL (0.60-1.30); GFR ESTIMATED > 60; GLUCOSE 109 MG/DL (70-105); POTASSIUM 3.7 MMOL/L (3.6-5.0); SODIUM 137 MMOL/L (135-145); TOTAL PROTEIN 6.5 GM/DL (6.4-8.2)
[2020-11-29] MEDS: GABAPENTIN 300 MG (NEURONTIN) CAP PO SCH ×3 (08:43→21:08)
[2020-11-29] MEDS: LACTOBACILLUS ACIDOPHILUS (PROBIOTIC) CAPSULE PO SCH ×3 (08:43→17:22)
[2020-11-29] MEDS: meTOprolol SUCCINATE 100 MG (TOPROL XL) TAB PO SCH (08:44)
[2020-11-29] MEDS: CLOPIDOGREL 75 MG (PLAVIX) TABLET PO SCH (08:44)
[2020-11-29] MEDS: hydrALAZINE (APRESOLINE) 25 MG TAB PO SCH ×3 (08:44→21:09)
[2020-11-29] MEDS: PANTOPRAZOLE 20 MG TABLET (PROTONIX) PO SCH (08:44)
[2020-11-29] MEDS: inSUlin ASPART (NovoLOG) 1 UNIT/0.01 ML (CHARGE PER UNIT) SC SCH ×4 (08:45→21:09)
[2020-11-29] MEDS: ASPIRIN 81 MG CHEW (CHILDREN'S ASA) PO SCH (08:47)
[2020-11-29] MEDS: NS IV 1000 ML 1,000 ML IV SCH (08:57)
--- NOTE | 2020-11-29 12:15 | Progress Note ---
Subjective Subjective Date Seen by Provider: Nov 29, 2020 Time Seen by Provider: 08:30 Rhoda described herself as frustrated and concerned this morning for her upcoming surgery. Pt was able to speak with Dr. Sarmiento yesterday and came up with a treatment plan that includes surgery tomorrow. Pt is concerned that more might have to be amputated than just her 4th and 5th toes. Pt stated that she was only able to sleep for 2 hours last night. Pt stated that she is still having occasional chill, minimal pain in her right foot, and BM each day. Review of Systems General: Chills, Fatigue Gastrointestinal: Abdominal Pain (mild, diffuse) Musculoskeletal: foot pain (right foot) All Other Systems Reviewed All Other Systems Reviewed: Yes (Negative excepted noted.) Objective Exam Vital Signs Vital Signs - First Documented 11/26/20 11/26/20 13:23 21:18 Temp 38.1 Pulse 93 Resp 17 B/P (MAP) 129/95 (106) Pulse Ox 98 O2 Delivery Room Air FiO2 21 Capillary Refill : Less Than 3 Seconds General Appearance: No Apparent Distress, WD/WN, Obese Eyes: Bilateral Eye PERRL, Bilateral Eye EOMI HEENT: PERRL/EOMI, Pharynx Normal Neck: Full Range of Motion, Non Tender, Supple Respiratory: Chest Non Tender, Lungs Clear, Normal Breath Sounds, No Accessory Muscle Use, No Respiratory Distress Cardiovascular: Regular Rate, Rhythm, No Gallop, Systolic Murmur Gastrointestinal: Normal Bowel Sounds, No Pulsatile Mass, Soft; No Guarding Rectal: Deferred Extremity: Calf Tenderness, Pedal Edema, Swelling (right foot) Neurologic/Psychiatric: Alert, Oriented x3, No Motor/Sensory Deficits, Normal Mood/Affect, 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 Norm as Tested Skin: Normal Color, Warm/Dry, Other (Deep track between 4-5 toe on the right foot with maceration and ttp, purulent drainage, wound on plantar surface , not well healing, + purulent drainage) Lymphatic: No Adenopathy Results Lab Laboratory Tests 11/28/20 15:34: Glucometer 149H 11/28/20 20:17: Glucometer 168H 11/29/20 05:09: White Blood Count 12.3H, Red Blood Count 3.08L, Hemoglobin 8.5L, Hematocrit 28L, Mean Corpuscular Volume 91, Mean Corpuscular Hemoglobin 28, Mean Corpuscular Hemoglobin Concent 30L, Red Cell Distribution Width 14.4, Platelet Count 227, Mean Platelet Volume 9.3, Immature Granulocyte % (Auto) 1, Neutrophils (%) (Auto) 72, Lymphocytes (%) (Auto) 17, Monocytes (%) (Auto) 8, Eosinophils (%) (Auto) 2, Basophils (%) (Auto) 0, Neutrophils # (Auto) 8.9H, Lymphocytes # (Auto) 2.1, Monocytes # (Auto) 1.0, Eosinophils # (Auto) 0.3, Basophils # (Auto) 0.0, Immature Granulocyte # (Auto) 0.1, Sodium Level 137, Potassium Level 3.7, Chloride Level 106, Carbon Dioxide Level 21, Anion Gap 10, Blood Urea Nitrogen 1 1, Creatinine 0.77, Estimat Glomerular Filtration Rate > 60, BUN/Creatinine Ratio 14, Glucose Level 109H, Calcium Level 8.5, Corrected Calcium 9.2, Total Bilirubin 0.4, Aspartate Amino Transf (AST/SGOT) 18, Alanine Aminotransferase (ALT/SGPT) 21, Alkaline Phosphatase 72, Total Protein 6.5, Albumin 3.1L 11/29/20 05:29: Glucometer 98 11/29/20 12:05: Glucometer 178H Microbiology 11/26/20 Urine Culture - Final, Complete >=3 Gram Positive Isolates 11/26/20 Blood Culture - Preliminary, Resulted No growth 11/26/20 Gram Stain - Final, Resulted 11/26/20 Wound Culture - Preliminary, Resulted Actinomyces species Gram Positive Cocci In Chains Assessment/Plan Assessment/Plan Admission Dx Assessment: osteomyelitis of the right foot diabetic foot ulcer on right foot diabetes- blood glucose currently 98 uncontrolled hypertension- current BP of 157/69 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 Leukocytosis- WBC at 12.3 anemia- Hgb at 8.5 Plan: continue antibiotic use continue pain medication non-weight bearing distal right foot wound care consult cardiology- echo to evaluate murmur Dr. Sarmiento procedure tomorrow Problems: (1) Osteomyelitis Qualifiers: Assessment & Plan: - Vanc/Zosyn D2, General surgery consult for debridment and wound care, wound care nurse consulted, MRI reviewed with patient 11/28: D3 Angelita/Ang, Dr Sarmiento to see patient today, Patient will likely need PICC line 11/29: D4 Vanc/Zosyn, Patient to OR tomorrow (2) Diabetic ulcer of foot associated with diabetes mellitus due to underlying condition, with necrosis of muscle Qualifiers: Qualified Codes: E08.621 - Diabetes mellitus due to underlying condition with foot ulcer; L97.513 - Non-pressure chronic ulcer of other part of right foot with necrosis of muscle Assessment & Plan: 11/29: Restart insulin at lower doses due to change in diet, SSI/Accuchecks (3) Cellulitis of foot associated with diabetes mellitus (4) Insulin dependent diabetes mellitus with complications Assessment & Plan: - A1c pending, home insulin restarted at reduced doses due to diet, SSI/Accuchecks 11/28: A1c pending, discussed the importance of blood sugar control and wound h ealing 11/29: A1c 9.0 (5) 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 (6) HTN (hypertension) Qualifiers: Qualified Codes: I10 - Essential (primary) hypertension Assessment & Plan: Restarted home meds 11/29: Added lisinopril for better blood pressure control as well and kidney protection in DM (7) CAD (coronary artery disease) Qualifiers: Qualified Codes: I25.10 - Atherosclerotic heart disease of [place] coronary artery without angina pectoris Assessment & Plan: - Restarted home meds (8) DVT prophylaxis Assessment & Plan: - SCDs, holding lovenox due to possible surgery Admission Dx Assessment: osteomyelitis of the right foot diabetic foot ulcer on right foot diabetes- blood glucose currently 124 hypertension- current BP of 135/62 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 Plan: continue antibiotic use continue pain medication non-weight bearing distal right foot general surgery consult wound care echo Clinical Quality Measures Admission Status Admission Dx Assessment: osteomyelitis of the right foot diabetic foot ulcer on right foot diabetes- blood glucose currently 124 hypertension- current BP of 135/62 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 Plan: continue antibiotic use continue pain medication non-weight bearing distal right foot general surgery consult wound care echo Supervisory-Addendum Brief Verification & Attestation Participated in pt care: history, physical Personally performed: exam, history Care discussed with: Medical Student Procedures: n/a Verification and Attestation of Medical Student E/M Service A medical student performed and documented this service in my presence. I reviewed and verified all information documented by the medical student and made modifications to such information, when appropriate. I personally performed the physical exam and medical decision making. Vera Maria, Nov 29, 2020,20:46 JUSTIN COLE MED STUDENT Nov 29, 2020 12:15 VERA MARIA MD Nov 29, 2020 20:46
[2020-11-29] MEDS: lisINopril 20 MG (PRINIVIL) TABLET PO SCH (21:19)
[2020-11-30] VITALS (9 sets, daily range): BP systolic 91–192; BP diastolic 43–87
[2020-11-30] MEDS: NS IV 1000 ML 1,000 ML IV SCH (02:23)
[2020-11-30] MEDS: PIPERACILLIN/TAZO 4.5 GM/NS 100 ML IV SCH ×6 (02:23→14:45)
[2020-11-30] MEDS ORDERED: TROUGH ORDER-PHARMACY XX ONE (05:00)
[2020-11-30 05:59] LABS: BASOPHILS % (AUTO) 0 % (0-10); EOSINOPHILS # (AUTO) 0.3 10^3/uL (0.0-0.3); EOSINOPHILS % (AUTO) 2 % (0-10); HEMATOCRIT 26 % (35-52); HEMOGLOBIN 8.3 g/dL (11.5-16.0); LYMPHOCYTES % (AUTO) 16 % (12-44); MEAN CORPUSCULAR HEMOGLOBIN 29 pg (25-34); MEAN CORPUSCULAR HGB CONC 32 g/dL (32-36); MEAN CORPUSCULAR VOLUME 89 fL (80-99); MEAN PLATELET VOLUME 9.6 fL (9.0-12.2); MONOCYTES % (AUTO) 8 % (0-12); NEUTROPHILS # (AUTO) 9.5 10^3/uL (1.8-7.8); NEUTROPHILS % (AUTO) 74 % (42-75); PLATELET COUNT 267 10^3/uL (130-400); WHITE BLOOD COUNT 12.9 10^3/uL (4.3-11.0)
[2020-11-30 06:20] LABS: ALANINE AMINOTRANSFERASE 24 U/L (0-55); ALBUMIN 3.2 GM/DL (3.2-4.5); ALKALINE PHOSPHATASE 86 U/L (40-136); BILIRUBIN,TOTAL 0.5 MG/DL (0.1-1.0); BUN/CREATININE RATIO 14; CALCIUM 8.8 MG/DL (8.5-10.1); CARBON DIOXIDE 20 MMOL/L (21-32); CHLORIDE 106 MMOL/L (98-107); CREATININE SERUM 0.81 MG/DL (0.60-1.30); GFR ESTIMATED > 60; GLUCOSE 163 MG/DL (70-105); POTASSIUM 3.6 MMOL/L (3.6-5.0); SODIUM 136 MMOL/L (135-145); TOTAL PROTEIN 6.7 GM/DL (6.4-8.2)
[2020-11-30] MEDS: inSUlin ASPART (NovoLOG) 1 UNIT/0.01 ML (CHARGE PER UNIT) SC SCH ×7 (06:21→21:21)
[2020-11-30 06:25] LABS: VANCOMYCIN,TROUGH 21.6 UG/ML (10.0-20.0)
[2020-11-30] MEDS: VANCOMYCIN 1500 MG/NS 500 ML IVPB IV SCH ×2 (06:29)
[2020-11-30] MEDS: VANCOMYCIN 1250 MG/NS 250 ML IVPB IV SCH ×4 (08:13→21:23)
[2020-11-30] MEDS: diphenhydrAMINE 25 MG TAB (BENADRYL) PO PRN ×2 (08:13→21:20)
[2020-11-30] MEDS: lisINopril 20 MG (PRINIVIL) TABLET PO SCH (08:14)
[2020-11-30] MEDS: meTOprolol SUCCINATE 100 MG (TOPROL XL) TAB PO SCH (08:14)
[2020-11-30] MEDS: hydrALAZINE (APRESOLINE) 25 MG TAB PO SCH ×3 (08:14→21:20)
[2020-11-30] MEDS: ASPIRIN 81 MG CHEW (CHILDREN'S ASA) PO SCH (08:39)
[2020-11-30] MEDS: PANTOPRAZOLE 20 MG TABLET (PROTONIX) PO SCH (08:39)
[2020-11-30] MEDS: CLOPIDOGREL 75 MG (PLAVIX) TABLET PO SCH (08:39)
[2020-11-30] MEDS: LACTOBACILLUS ACIDOPHILUS (PROBIOTIC) CAPSULE PO SCH ×3 (08:39→17:56)
[2020-11-30] MEDS: GABAPENTIN 300 MG (NEURONTIN) CAP PO SCH ×3 (08:39→21:20)
[2020-11-30] MEDS ORDERED: LACTATED RINGERS 1,000 ML IV PRN ×2 (12:00→14:45)
[2020-11-30] MEDS ORDERED: LIDOCAINE PF 2% 5 ML (XYLOCAINE) VIAL ONE (12:22)
[2020-11-30] MEDS ORDERED: proPOfol 200 MG/20 ML (DIPRIVAN) VIAL IV ONE (12:22)
[2020-11-30] MEDS ORDERED: ONDANSETRON 4 MG/2 ML (SDV) Z0FRAN ONE (12:22)
[2020-11-30] MEDS ORDERED: MIDAZOLAM 2 MG/2 ML (VERSED) VIAL ONE (12:23)
[2020-11-30] MEDS ORDERED: fentaNYL INJ 100 MCG/2 ML AMP ONE (12:23)
[2020-11-30] MEDS ORDERED: SEVOFLURANE (ULTANE) 15 ML INHAL SOLN ONE ×3 (12:26→15:30)
--- NOTE | 2020-11-30 12:42 | Progress Note ---
Subjective Subjective Date Seen by Provider: Nov 30, 2020 Time Seen by Provider: 08:45 Pt was sitting anxiously in her chair upon entering the room. Pt stated that she got very little sleep and had episodes of SOB as she worried about her surgery today. Pt has been NPO in preperation for surgery this afternoon. See is still on IV antibiotics. Pt stated that she was in no pain but had significant itching around her IV port. Pt denied chills, constipation, or chest pain. Review of Systems General: Chills, Fatigue, Appetite Pulmonary: Dyspnea Cardiovascular: Edema Musculoskeletal: foot pain (right foot) All Other Systems Reviewed All Other Systems Reviewed: Yes (Negative excepted noted.) Objective Exam Vital Signs Vital Signs - First Documented 11/26/20 11/26/20 13:23 21:18 Temp 38.1 Pulse 93 Resp 17 B/P (MAP) 129/95 (106) Pulse Ox 98 O2 Delivery Room Air FiO2 21 Capillary Refill : Less Than 3 Seconds General Appearance: No Apparent Distress, WD/WN, Obese Eyes: Bilateral Eye PERRL, Bilateral Eye EOMI HEENT: PERRL/EOMI, Pharynx Normal Neck: Full Range of Motion, Non Tender, Supple Respiratory: Chest Non Tender, Lungs Clear, Normal Breath Sounds, No Accessory Muscle Use, No Respiratory Distress Cardiovascular: Regular Rate, Rhythm, No Gallop, Systolic Murmur Gastrointestinal: Normal Bowel Sounds, No Pulsatile Mass, Soft; No Guarding Rectal: Deferred Extremity: No Calf Tenderness, Pedal Edema, Swelling (right foot) Neurologic/Psychiatric: Alert, Oriented x3, No Motor/Sensory Deficits, Normal Mood/Affect, 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 Norm as Tested Skin: Normal Color, Warm/Dry, Other (Deep track between 4-5 toe on the right fo ot with maceration and ttp, purulent drainage, wound on plantar surface , not well healing, + purulent drainage) Lymphatic: No Adenopathy Results Lab Laboratory Tests 11/29/20 15:32: Glucometer 235H 11/29/20 20:17: Glucometer 302H 11/30/20 05:25: White Blood Count 12.9H, Red Blood Count 2.90L, Hemoglobin 8.3L, Hematocrit 26L, Mean Corpuscular Volume 89, Mean Corpuscular Hemoglobin 29, Mean Corpuscular Hemoglobin Concent 32, Red Cell Distribution Width 14.2, Platelet Count 267, Mean Platelet Volume 9.6, Immature Granulocyte % (Auto) 1, Neutrophils (%) (Auto) 74, Lymphocytes (%) (Auto) 16, Monocytes (%) (Auto) 8, Eosinophils (%) (Auto) 2, Basophils (%) (Auto) 0, Neutrophils # (Auto) 9.5H, Lymphocytes # (Auto) 2.0, Monocytes # (Auto) 1.0, Eosinophils # (Auto) 0.3, Basophils # (Auto) 0.0, Immature Granulocyte # (Auto) 0.1, Sodium Level 136, Potassium Level 3.6, Chloride Level 106, Carbon Dioxide Level 20L, Anion Gap 10, Blood Urea Nitrogen 11, Creatinine 0.81, Estimat Glomerular Filtration Rate > 60, BUN/Creatinine Ratio 14, Glucose Level 163H, Calcium Level 8.8, Corrected Calcium 9.4, Total Bilirubin 0.5, Aspartate Amino Transf (AST/SGOT) 18, Alanine Aminotransferase (ALT/SGPT) 24, Alkaline Phosphatase 86, Total Protein 6.7, Albumin 3.2, Vancomycin Level Trough 21.6H 11/30/20 10:58: Glucometer 140H Microbiology 11/29/20 MRSA Screen - Final, Complete MRSA not isolated 11/26/20 Urine Culture - Final, Complete >=3 Gram Positive Isolates 11/26/20 Blood Culture - Preliminary, Resulted No growth 11/26/20 Gram Stain - Final, Resulted 11/26/20 Wound Culture - Preliminary, Resulted Actinomyces odontolyticus Gram Positive Cocci In Chains Assessment/Plan Assessment/Plan Admission Dx Assessment: osteomyelitis of the right foot diabetic foot ulcer on right foot diabetes- blood glucose currently 163 uncontrolled hypertension- current BP of 178/76 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 Leukocytosis- WBC at 12.9 anemia- Hgb at 8.3 Plan: continue antibiotic use continue pain medication non-weight bearing distal right foot wound care consult cardiology- echo to evaluate murmur Dr. Sarmiento surgery today Problems: (1) Osteomyelitis Qualifiers: Assessment & Plan: - Vanc/Zosyn D2, General surgery consult for debridment and wound care, wound care nurse consulted, MRI reviewed with patient 11/28: D3 Vanc/Zosydae, Dr Sarmiento to see patient today, Patient will likely need PICC line 11/29: D4 Vanc/Zosyn, Patient to OR tomorrow 11/30: D5 Vanc/Zosyn, OR today, will likely need mcc antibiotics, PICC in place (2) Diabetic ulcer of foot associated with diabetes mellitus due to underlying condition, with necrosis of muscle Qualifiers: Qualified Codes: E08.621 - Diabetes mellitus due to underlying condition with foot ulcer; L97.513 - Non-pressure chronic ulcer of other part of right foot with necrosis of muscle Assessment & Plan: 11/29: Restart insulin at lower doses due to change in diet, SSI/Accuchecks (3) Cellulitis of foot associated with diabetes mellitus (4) Insulin dependent diabetes mellitus with complications Assessment & Plan: - A1c pending, home insulin restarted at reduced doses due to diet, SSI/Accuchecks 11/28: A1c pending, discussed the importance of blood sugar control and wound healing 11/29: A1c 9.0 (5) 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 (6) HTN (hypertension) Qualifiers: Qualified Codes: I10 - Essential (primary) hypertension Assessment & Plan: Restarted home meds 11/29: Added lisinopril for better blood pressure control as well and kidney protection in DM (7) CAD (coronary artery disease) Qualifiers: Qualified Codes: I25.10 - Atherosclerotic heart disease of [place] coronary artery without angina pectoris Assessment & Plan: - Restarted home meds (8) DVT prophylaxis Assessment & Plan: - SCDs, holding lovenox due to possible surgery Admission Dx Assessment: osteomyelitis of the right foot diabetic foot ulcer on right foot diabetes- blood glucose currently 98 uncontrolled hypertension- current BP of 157/69 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 Leukocytosis- WBC at 12.3 anemia- Hgb at 8.5 Plan: continue antibiotic use continue pain medication non-weight bearing distal right foot wound care consult cardiology- echo to evaluate murmur Dr. Torsten mcintyre tomorrow Clinical Quality Measures Admission Status Admission Dx Assessment: osteomyelitis of the right foot diabetic foot ulcer on right foot diabetes- blood glucose currently 98 uncontrolled hypertension- current BP of 157/69 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 Leukocytosis- WBC at 12.3 anemia- Hgb at 8.5 Plan: continue antibiotic use continue pain medication non-weight bearing distal right foot wound care consult cardiology- echo to evaluate murmur Dr. Torsten mcintyre tomorrow Supervisory-Addendum Brief Verification & Attestation Participated in pt care: history, physical Personally performed: exam, history Care discussed with: Medical Student Procedures: n/a Verification and Attestation of Medical Student E/M Service A medical student performed and documented this service in my presence. I reviewed and verified all information documented by the medical student and made modifications to such information, when appropriate. I personally performed the physical exam and medical decision making. Vera Angel, Nov 30, 2020,13:29 JUSTIN COLE MED STUDENT Nov 30, 2020 12:42 VERA ANGEL MD Nov 30, 2020 13:29
[2020-11-30] MEDS ORDERED: LIDOCAINE 1% INJ 20 ML 20 ML VIAL ONE (13:42)
[2020-11-30] MEDS ORDERED: BUPIVACAINE 0.5% 30 ML (SENSORCAINE) VIAL ONE (13:42)
--- NOTE | 2020-11-30 14:02 | Anesthesia-General Post-Op ---
General Patient Condition Mental Status/LOC: Same as Preop Cardiovascular: Satisfactory Nausea/Vomiting: Absent Respiratory: Satisfactory Pain: Controlled Complications: Absent Post Op Complications Complications None Follow Up Care/Instructions Patient Instructions None needed. Anesthesia/Patient Condition Patient Condition Patient is doing well, no complaints, stable vital signs, no apparent adverse anesthesia problems. No complications reported per nursing. MARTHA TURPIN CRNA Nov 30, 2020 14:02
--- NOTE | 2020-11-30 14:16 | Progress Note-Pre Operative ---
Pre-Operative Progress Note H&P Reviewed The H&P was reviewed, patient examined and no changes noted. Date Seen by Provider: Nov 30, 2020 Time Seen by Provider: 14:15 Date H&P Reviewed: Nov 30, 2020 Time H&P Reviewed: 14:15 Pre-Operative Diagnosis: Osteomyelitis right 4th and 5th toes. MARIBEL KIRK DPM Nov 30, 2020 14:16
[2020-11-30] MEDS ORDERED: GLYCOPYRROLATE 0.2 MG/ML (ROBINUL) 2 ML VIAL ONE (14:47)
--- NOTE | 2020-11-30 15:31 | Progress Note-Post Operative ---
Post-Operative Progess Note Surgeon (s)/Metal Cutter (s) Surgeon MARIBEL KIRK DPM Metal Cutter: none Pre-Operative Diagnosis Osteomyelitis right 4th and 5th toes. Post-Operative Diagnosis Same, plus osteomyelitis of the right 4th metatarsal head Procedure & Operative Findings Date of Procedure 11/30/20 Procedure Performed/Findings Amputation of the right 4th metatarsal and toe, amputation of the right 5th toe Anesthesia Type General Estimated Blood Loss Estimated blood loss (mL): Minimal Specimens/Packing Specimens Removed Right 4th metatarsal head, right 4th toe, right 5th toe Packing: Iodoform packing (1 inch) MARIBEL KIRK DPM Nov 30, 2020 15:31
--- NOTE | 2020-11-30 15:57 | Anesthesia-General Post-Op ---
General Patient Condition Mental Status/LOC: Same as Preop Cardiovascular: Satisfactory Nausea/Vomiting: Absent Respiratory: Satisfactory Pain: Controlled Complications: Absent Post Op Complications Complications None Follow Up Care/Instructions Patient Instructions None needed. Anesthesia/Patient Condition Patient Condition Patient is doing well, no complaints in PACU, stable vital signs, no apparent adverse anesthesia problems. ARI LAMBERT DO Nov 30, 2020 15:57
[2020-11-30] MEDS ORDERED: morphine INJ 10 MG/ML 1ML (SYR OR VIAL) IVP ONE (16:00)
[2020-11-30] MEDS ORDERED: ONDANSETRON 4 MG/2 ML (SDV) Z0FRAN IVP PRN (16:00)
[2020-11-30] MEDS: LACTATED RINGERS 1,000 ML IV SCH ×2 (16:28→23:02)
--- NOTE | 2020-11-30 16:50 | Diagnostic Imaging Report ---
INDICATION: Postoperative imaging after right toe amputations. COMPARISON: 11/26/2020. TECHNIQUE: Two views of the right foot were obtained. FINDINGS: Amputation of the 4th ray at the level of the metatarsal head has been performed. 5th toe amputation as been performed at the level of the MTP. Remote amputation of the 3rd toe at the head of the proximal phalanx. Chronic degenerative changes at the 1st MTP and IP joints. No new fracture or osseous erosion. Plantar calcaneal spur. IMPRESSION: Expected immediate postoperative imaging status post amputations of the 4th and 5th toes. Dictated by: Dictated on workstation # [id number]
[2020-11-30 18:28] LABS: BASOPHILS % (AUTO) 0 % (0-10); EOSINOPHILS # (AUTO) 0.3 10^3/uL (0.0-0.3); EOSINOPHILS % (AUTO) 2 % (0-10); HEMATOCRIT 29 % (35-52); HEMOGLOBIN 9.3 g/dL (11.5-16.0); LYMPHOCYTES # (AUTO) 1.7 10^3/uL (1.0-4.0); LYMPHOCYTES % (AUTO) 15 % (12-44); MEAN CORPUSCULAR HEMOGLOBIN 29 pg (25-34); MEAN CORPUSCULAR HGB CONC 32 g/dL (32-36); MEAN CORPUSCULAR VOLUME 90 fL (80-99); MEAN PLATELET VOLUME 9.3 fL (9.0-12.2); MONOCYTES # (AUTO) 0.8 10^3/uL (0.0-1.0); MONOCYTES % (AUTO) 7 % (0-12); NEUTROPHILS # (AUTO) 8.8 10^3/uL (1.8-7.8); NEUTROPHILS % (AUTO) 75 % (42-75); PLATELET COUNT 250 10^3/uL (130-400); WHITE BLOOD COUNT 11.7 10^3/uL (4.3-11.0)
[2020-11-30 18:49] LABS: ALANINE AMINOTRANSFERASE 24 U/L (0-55); ALBUMIN 3.2 GM/DL (3.2-4.5); ALKALINE PHOSPHATASE 96 U/L (40-136); BILIRUBIN,TOTAL 0.4 MG/DL (0.1-1.0); BUN/CREATININE RATIO 12; CALCIUM 8.7 MG/DL (8.5-10.1); CARBON DIOXIDE 21 MMOL/L (21-32); CHLORIDE 106 MMOL/L (98-107); CREATININE SERUM 0.84 MG/DL (0.60-1.30); GFR ESTIMATED > 60; GLUCOSE 209 MG/DL (70-105); POTASSIUM 3.8 MMOL/L (3.6-5.0); SODIUM 139 MMOL/L (135-145)
[2020-11-30] MEDS: HYDROcodone/APAP 5 MG/325 MG (LORTAB) TAB PO PRN (21:21)
--- NOTE | 2020-11-30 21:56 | OPERATIVE REPORT ---
DATE OF SERVICE: 11/30/2020 SURGEON: Tracey Sarmiento DPM. PREOPERATIVE DIAGNOSIS: Osteomyelitis, right fourth and fifth toes. POSTOPERATIVE DIAGNOSES: 1. Osteomyelitis, right fourth and fifth toes. 2. Osteomyelitis, right fourth metatarsal. PROCEDURE: 1. Amputation of the right fourth and fifth toes. 2. Amputation of the right 4th metatarsal head. WOUND CLASS: Contaminated. ANESTHESIA: General. HEMOSTASIS: Pneumatic ankle tourniquet at 250 mmHg. INDICATIONS: This 65-year-old female, who presented to the hospital with cellulitis and infection of the right foot. Subsequent MRI indicated osteomyelitis of the right fourth and fifth digits as well as to the right fourth metatarsophalangeal joint. The patient has been given a copious amounts of IV antibiotics and her overall foot appearance is improved; however, she is agreeable to surgical intervention after risks and complications were discussed at length. No guarantees were extended to the patient and she is willing to proceed. DESCRIPTION OF PROCEDURE: The patient was brought back to the operating table, placed in secure supine position. Appropriate timeout was performed. General anesthetic was induced. The right foot was then prepped and draped in normal sterile manner after an ankle tourniquet was applied. The right foot was then elevated, allowed to exsanguinate after which the tourniquet was inflated to 250 mmHg. Attention was then directed to the right fourth and fifth digit. There was a full thickness wound extending from the fourth webspace into the base of the fourth and fifth digits. Two racquet type incisions were made from dorsal and then extending around the digits of the fourth and fifth digits. The lateral portion of the right fifth toe skin was preserved to allow for some skin closure after the wound was found to be free of infection. The incisions were deepened down to bone. It was evident that there is a very soft bone associated with the base of the proximal phalanx of the right fourth digit as well as the proximal phalanx of the right fifth digit. Both digits were amputated with disarticulation and sent for gross and microscopic evaluation. Attention was then directed to the remaining metatarsals, the fifth metatarsal appeared to be intact without pathology. The right fourth metatarsal lateral aspect had significant soft spongy feel to the right behind the articular cartilage. It was then decided that the head of the fourth metatarsal would also be resected approximately 1 cm from distal aspect. The fourth metatarsal was resected utilizing a power sagittal saw from a distal dorsal to plantar proximal orientation. This too was sent for gross and microscopic evaluation. The wound was flushed with copious amounts of normal saline under power irrigation. Once this was done, tourniquet was released, and active bleeders were cauterized. The wound was packed with one-inch iodoform sterile 4 x 4's, ABD, secured with Kerlix. Also, the plantar wound to the right first metatarsal head area was also dressed with Silvadene and a gauze dressing. It should be noted that the portion of the soft bone associated with the base of the right fourth toe was sent for cultures and sensitivity. The patient is to be nonweightbearing on the right foot with the exception of heel contact for balance and transfers. Wound care is to be done daily with Silvadene cream to the right first metatarsal head area and iodoform packing to the fourth and fifth toe amputation site. We will perform these dressing changes daily. We anticipate possible delayed primary closure in a 3 days period of time or sooner if necessary. Job ID: [id number] DocumentID: [id number] Dictated Date: 11/30/2020 15:57:45 Ground Support Equipment Fitter Date: 11/30/2020 21:55:18 Dictated By: GAURI CUMMINGS
[2020-12-01] VITALS (8 sets, daily range): BP systolic 135–180; BP diastolic 69–75
[2020-12-01] MEDS: LACTATED RINGERS 1,000 ML IV SCH ×2 (01:33→11:49)
[2020-12-01] MEDS: inSUlin ASPART (NovoLOG) 1 UNIT/0.01 ML (CHARGE PER UNIT) SC SCH ×7 (06:27→20:49)
[2020-12-01] MEDS: LACTOBACILLUS ACIDOPHILUS (PROBIOTIC) CAPSULE PO SCH ×3 (08:01→16:42)
[2020-12-01] MEDS: hydrALAZINE (APRESOLINE) 25 MG TAB PO SCH ×3 (08:01→20:49)
[2020-12-01] MEDS: GABAPENTIN 300 MG (NEURONTIN) CAP PO SCH ×3 (08:01→20:48)
[2020-12-01] MEDS: CLOPIDOGREL 75 MG (PLAVIX) TABLET PO SCH (08:02)
[2020-12-01] MEDS: PANTOPRAZOLE 20 MG TABLET (PROTONIX) PO SCH (08:02)
[2020-12-01] MEDS: meTOprolol SUCCINATE 100 MG (TOPROL XL) TAB PO SCH (08:02)
[2020-12-01] MEDS: ASPIRIN 81 MG CHEW (CHILDREN'S ASA) PO SCH (08:02)
[2020-12-01] MEDS: lisINopril 20 MG (PRINIVIL) TABLET PO SCH (08:02)
[2020-12-01] MEDS: VANCOMYCIN 1250 MG/NS 250 ML IVPB IV SCH ×4 (08:07→20:50)
--- NOTE | 2020-12-01 09:00 | Physical Therapy Evaluation ---
PT Evaluation-General Medical Diagnosis Admission Date Nov 26, 2020 at 16:58 Medical Diagnosis: osteomyelitis right foot Onset Date: Nov 26, 2020 Therapy Diagnosis Therapy Diagnosis: debility Height/Weight Height (Feet): 5 Height (Inches): 5.50 Weight (Pounds): 195 Weight (Ounces): 0.0 Precautions Precautions/Isolations: Fall Prevention, Standard Precautions Weight Bear Status Right Lower Extremity: Right Partial Weight Bearing (heel contact ) Left Lower Extremity: Left Weight Bearing/Tolerated Heel contact only for transfers and balance, right foot Referral Physician: Torsten Reason for Referral: Evaluation/Treatment Medical History Pertinent Medical History: CAD, DM, HTN, Neuropathy, PVD Current History s/p amputation right 4th and 5th toes and 4th metatarsal head Reviewed History: Yes Social History Home: Single Level Current Living Status: Spouse Entry Into Home: Stairs With Railing PT Steps Into Home: 2 Prior Prior Level of Function SCALE: Activities may be completed with or without assistive devices. 5-Bdhgnnqtqc-iwvlynu completes the activity by him/herself with no assistance from a helper. 5-Set-up or Clean-up Assistance-helper sets up or cleans up; patient completes activity. [place] assists only prior to or following the activity. 4-Supervision or Touching Assistance-helper provides verbal cues and/or touching/steadying and/or contact guard assistance as patient completes activity. Assistance may be provided throughout the activity or intermittently. 3-Partial/Moderate Assistance-helper does LESS THAN HALF the effort. [place] lifts, holds or supports trunk or limbs, but provides less than half the effort. 2-Substantial/Maximal Assistance-helper does MORE THAN HALF the effort. [place] lifts or holds trunk or limbs and provides more than half the effort. 4-Pbyazmmqk-erqwzw does ALL the effort. Patient does none of the effort to complete the activity. Or, the assistance of 2 or more helpers is required for the patient to complete the activity. If activity was not attempted, code reason: 7-Patient Refused. 9-Not Applicable-not attempted and the patient did not perform the activity before the current illness, exacerbation or injury. 10-Not Attempted due to Environmental Limitations-(lack of equipment, weather restraints, etc.). 88-Not Attempted due to Medical Conditions or Safety Concerns. Bed Mobility: 6 Transfers (B,C,W/C): 6 Gait: 6 Stairs: 6 Indoor Mobility (Ambulation): Independent Prior Devices Use: None PT Evaluation-Current Subjective Patient agrees to PT. She reports she is up independently in room without difficulty. Pain Numeric Pain Scale: 0-No Pain Location: No Pain Reported Objective Patient Orientation: Normal For Age Attachments: IV ROM/Strength ROM Lower Extremities bilateral LE WFL Strength Lower Extremities 4/5 grossly bilateral LE Integumentary/Posture Integumentary refer to nursing notes Bowel Incontinence: No Bladder Incontinence: No Posture WFL Neuromuscular (Tone, Coordination, Reflexes) grossly intact Sensory Vision: Wears Glasses Hearing: Functional Sensation Right Lower Extremit: Impaired Sensation Left Lower Extremity: Impaired Transfers Roll Left to Right (QC): 6 Sit to Lying (QC): 6 Lying to Sitting/Side of Bed(Q: 6 Sit to Stand (QC): 6 Chair/Ito-zh-Pypsn Xfer(QC): 6 Gait Mode of Locomotion: Walk Anticipated Mode of Locomotion: Walk Walk 10 feet (QC): 6 Walk 50 ft with 2 Turns(QC): 6 Gait Assistive Device: FWW Comments/Gait Description heel contact only with compliance Wheelchair Training Does the Pt Use a Wheelchair?: No Balance Sitting Static: Normal Sitting Dynamic: Normal Standing Static: Normal Standing Dynamic: Normal Picking up an Object (QC): 6 Assessment/Needs Patient is currently at independent PLOF with all gross motor skills and does not require skilled therapy intervention. Patient is up independently in room. Rehab Potential: Fair PT Plan Treatment/Plan Treatment Plan: Discontinue PT, goals met Treatment Duration: Dec 01, 2020 Frequency: 1 time per week Estimated Hrs Per Day: .25 hour per day Patient and/or Family Agrees t: Yes Discharge Recommendations Therapy Discharge Recommendati: Home & Family Time/GCodes Time In: 801 Time Out: 812 Total Billed Treatment Time: 11 Total Billed Treatment 1 visit EVLowC 11 min ALAN RAMOS PT Dec 01, 2020 09:00
--- NOTE | 2020-12-01 12:29 | Progress Note - Hospitalist ---
Subjective HPI/CC On Admission Date Seen by Provider: Dec 01, 2020 Time Seen by Provider: 10:30 Subjective/Events-last exam Patient denies pain likely due to significant peripheral neuropathy. She still having a small amount of serosanguineous drainage after a fair amount postop yesterday. She has continued aspirin and Plavix reports it has been several years since her last stent with no intervening history of acute coronary syndrome. She has had no chest discomfort or shortness of breath and was asking when she could be discharged. Objective Exam Vital Signs Vital Signs Date Time Temp Pulse Resp B/P (MAP) Pulse Ox O2 Delivery O2 Flow Rate FiO2 12/01/20 11:20 36.9 72 18 157/69 (98) 93 Room Air 11/30/20 15:49 10 11/29/20 13:17 21 Capillary Refill : Less Than 3 Seconds General Appearance: No Apparent Distress Respiratory: Chest Non Tender, Lungs Clear, Normal Breath Sounds, No Accessory Muscle Use, No Respiratory Distress Cardiovascular: Regular Rate, Rhythm, Systolic Murmur (2/6 systolic ejection murmur heard best over the aortic outflow tract without S3 or S4) Gastrointestinal: Normal Bowel Sounds, No Organomegaly, No Pulsatile Mass, Non Tender, Soft Extremity: Other (Left foot bandage there is small amount of blood seeping through the bottom of the bandage there is no significant swelling of the heel although skin is quite dry no ulceration is noted no erythema of the tibia or heel noted extremity warm.) Results/Procedures Lab Laboratory Tests 11/30/20 18:10 Patient resulted labs reviewed. Assessment/Plan Assessment and Plan Assess & Plan/Chief Complaint (1) Osteomyelitis Postop day 1 status post left fourth and fifth toe amputation and partial resection of the left fourth MTP due to osteomyelitis. Discussed the patient the culture results for waiting she would likely be here for several days of IV antibiotics with potential for delayed closure per Dr. Sarmiento in several days. Discussed she will need most likely 4 to 6 weeks of IV antibiotics which may be able to be done as an outpatient but this would be driven by culture results which may take another day or 2 to return. Status: Acute Qualifiers: Assessment & Plan: - Vanc/Zosyn D2, General surgery consult for debridment and wound care, wound care nurse consulted, MRI reviewed with patient (2) Diabetic ulcer of foot associated with diabetes mellitus due to underlying condition, with necrosis of muscle Status: Acute Qualifiers: Qualified Codes: E08.621 - Diabetes mellitus due to underlying condition with foot ulcer; L97.513 - Non-pressure chronic ulcer of other part of right foot with necrosis of muscle (3) Cellulitis of foot associated with diabetes mellitus Status: Acute (4) Insulin dependent diabetes mellitus with complications: Blood sugars are increasing patient reports he gets along well with Victoza will initiate Victoza when her brings it in 1. 8 mg subcu daily and increase Levemir to 40 units at bedtime as she usually takes Tresiba 40 units at bedtime. 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
[2020-12-01] MEDS: HYDROcodone/APAP 5 MG/325 MG (LORTAB) TAB PO PRN (20:48)
[2020-12-01] MEDS: diphenhydrAMINE 25 MG TAB (BENADRYL) PO PRN (20:48)
[2020-12-01] MEDS ORDERED: PATIENT MAY USE OWN MED,SINGLE MED SQ SCH (21:00)
--- NOTE | 2020-12-01 21:19 | Podiatry Progress Note ---
Standard Progress Note Progress Notes/Assess & Plan Date Seen by a Provider: Dec 01, 2020 Time Seen by a Provider: 21:17 Progress/Assessment & Plan Post op day #1. Patient states that she is not having pain except with dressing changes. There was some bleeding strike through yesterday. She denies F/C/N/V. Dressing intact to the right foot. No growth surgical bone removed as of today. Dx/Plan: osteomyelitis right 4th and 5th toes. I will change the dressing tomorrow and assuming the wound is healing and without gross infection, she will have delayed primary closure of the amputation site December 03. She would then be able to go home on PO antibiotics. Final Diagnosis Osteomyelitis right 4th and 5th toes. MARIBEL KIRK DPM Dec 01, 2020 21:19
[2020-12-01] MEDS ORDERED: PATIENT MAY USE OWN MED,SINGLE MED PO SCH (22:45)
[2020-12-02 04:00] VITALS: BP 149/74
[2020-12-02] MEDS: inSUlin ASPART (NovoLOG) 1 UNIT/0.01 ML (CHARGE PER UNIT) SC SCH ×7 (05:46→21:09)
[2020-12-02 07:30] VITALS: BP 194/77
[2020-12-02] MEDS: GABAPENTIN 300 MG (NEURONTIN) CAP PO SCH ×3 (07:55→20:30)
[2020-12-02] MEDS: ASPIRIN 81 MG CHEW (CHILDREN'S ASA) PO SCH (07:56)
[2020-12-02] MEDS: LACTOBACILLUS ACIDOPHILUS (PROBIOTIC) CAPSULE PO SCH ×3 (07:56→17:44)
[2020-12-02] MEDS: PANTOPRAZOLE 20 MG TABLET (PROTONIX) PO SCH (07:56)
[2020-12-02] MEDS: meTOprolol SUCCINATE 100 MG (TOPROL XL) TAB PO SCH (07:56)
[2020-12-02] MEDS: hydrALAZINE (APRESOLINE) 25 MG TAB PO SCH ×3 (07:56→21:21)
[2020-12-02] MEDS: CLOPIDOGREL 75 MG (PLAVIX) TABLET PO SCH (07:56)
[2020-12-02] MEDS: VANCOMYCIN 1250 MG/NS 250 ML IVPB IV SCH ×4 (07:56→21:21)
[2020-12-02] MEDS: lisINopril 20 MG (PRINIVIL) TABLET PO SCH (07:56)
[2020-12-02] MEDS: ACETAMINOPHEN 325 MG TABLET PO PRN (10:03)
[2020-12-02 11:50] VITALS: BP 187/80
--- NOTE | 2020-12-02 12:22 | Progress Note - Hospitalist ---
Subjective HPI/CC On Admission Date Seen by Provider: Dec 02, 2020 Time Seen by Provider: 11:30 Patient denies any significant foot pain and also denies chest pain or shortness of breath. Minimal bleeding reported on bandage which was changed shortly before I came in because the old bandage had come off. Objective Exam Vital Signs Vital Signs Date Time Temp Pulse Resp B/P (MAP) Pulse Ox O2 Delivery O2 Flow Rate FiO2 12/02/20 11:50 36.8 74 20 187/80 (115) 94 Room Air 11/30/20 15:49 10 11/29/20 13:17 21 Capillary Refill : Less Than 3 Seconds General Appearance: No Apparent Distress, Other (Depressed affect) Cardiovascular: Regular Rate, Rhythm, No Gallop, Systolic Murmur (10/20 to 11/17 systolic ejection murmur unchanged. ) Results/Procedures Lab Patient resulted labs reviewed. Assessment/Plan Assessment and Plan Assess & Plan/Chief Complaint (1) Osteomyelitis Postop day 2 status post left fourth and fifth toe amputation and partial resection of the left fourth MTP due to osteomyelitis. Culture results Pending from bone sampling. And discussed there may be a possibility as the patient was on IV antibiotics that nothing grows out. Patient is tentatively scheduled for delayed closure in the morning per Dr. Sarmiento. We will have the nurse hold a.m. aspirin and Plavix.. Discussed she will need most likely 4 to 6 weeks of IV antibiotics which may be able to be done as an ou tpatient but this would be driven by culture results which may take another day or 2 to return. Status: Acute Qualifiers: Assessment & Plan: - Vanc/[place] D2, General surgery consult for debridment and wound care, wound care nurse consulted, MRI reviewed with patient (2) Diabetic ulcer of foot associated with diabetes mellitus due to underlying condition, with necrosis of muscle Status: Acute Qualifiers: Qualified Codes: E08.621 - Diabetes mellitus due to underlying condition with foot ulcer; L97.513 - Non-pressure chronic ulcer of other part of right foot with necrosis of muscle (3) Cellulitis of foot associated with diabetes mellitus Status: Acute (4) Insulin dependent diabetes mellitus with complications: Blood sugars are increasing patient reports he gets along well with Victoza will initiate Victoza when her brings it in 1. 8 mg subcu daily and increase Levemir to 40 units at bedtime as she usually takes Tresiba 40 units at bedtime. 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
[2020-12-02 16:00] VITALS: BP 146/67
--- NOTE | 2020-12-02 16:46 | Podiatry Progress Note ---
Standard Progress Note Progress Notes/Assess & Plan Date Seen by a Provider: Dec 02, 2020 Time Seen by a Provider: 16:42 Progress/Assessment & Plan Post op day #2. No pain to the right foot. No bleeding strike through to dressing. She denies F/C/N/V. Dressing intact to the right foot. There is no erythema, wound edges are viable and minimal fibrotic tissue to the wound base. No mal-odor. Dx/Plan: Osteomyelitis right 4th and 5th toes with amputation of the right 4th metatarsal, right 4th and 5th toes. Delayed primary closure of the amputation site is scheduled for tomorrow morning, December 03. Final Diagnosis Osteomyelitis right foot, Diabetic Neuropathy MARIBEL KIRK DPM Dec 02, 2020 16:46
[2020-12-02] MEDS: diphenhydrAMINE 25 MG TAB (BENADRYL) PO PRN (20:31)
[2020-12-02] MEDS: HYDROcodone/APAP 5 MG/325 MG (LORTAB) TAB PO PRN (20:31)
[2020-12-02 20:52] VITALS: BP 148/99
[2020-12-02] MEDS ORDERED: VICTOZA 1.8 MG SQ SCH (21:00)
[2020-12-02 23:59] VITALS: BP 188/77
[2020-12-03] VITALS (9 sets, daily range): BP systolic 151–188; BP diastolic 67–93
[2020-12-03] MEDS: inSUlin ASPART (NovoLOG) 1 UNIT/0.01 ML (CHARGE PER UNIT) SC SCH ×4 (05:58→12:26)
[2020-12-03 06:57] LABS: BASOPHILS % (AUTO) 0 % (0-10); EOSINOPHILS # (AUTO) 0.3 10^3/uL (0.0-0.3); EOSINOPHILS % (AUTO) 3 % (0-10); HEMATOCRIT 28 % (35-52); HEMOGLOBIN 8.7 g/dL (11.5-16.0); LYMPHOCYTES # (AUTO) 1.5 10^3/uL (1.0-4.0); LYMPHOCYTES % (AUTO) 16 % (12-44); MEAN CORPUSCULAR HEMOGLOBIN 28 pg (25-34); MEAN CORPUSCULAR HGB CONC 31 g/dL (32-36); MEAN CORPUSCULAR VOLUME 91 fL (80-99); MEAN PLATELET VOLUME 9.1 fL (9.0-12.2); MONOCYTES # (AUTO) 0.6 10^3/uL (0.0-1.0); MONOCYTES % (AUTO) 7 % (0-12); NEUTROPHILS % (AUTO) 74 % (42-75); PLATELET COUNT 264 10^3/uL (130-400); WHITE BLOOD COUNT 9.5 10^3/uL (4.3-11.0)
[2020-12-03 07:11] LABS: ALBUMIN 3.1 GM/DL (3.2-4.5); POTASSIUM 3.7 MMOL/L (3.6-5.0)
[2020-12-03 07:13] LABS: CALCIUM 9.2 MG/DL (8.5-10.1)
[2020-12-03 07:14] LABS: TOTAL PROTEIN 6.6 GM/DL (6.4-8.2)
[2020-12-03 07:16] LABS: BILIRUBIN,TOTAL 0.3 MG/DL (0.1-1.0)
[2020-12-03 07:17] LABS: CREATININE SERUM 1.41 MG/DL (0.60-1.30)
[2020-12-03] MEDS: LACTOBACILLUS ACIDOPHILUS (PROBIOTIC) CAPSULE PO SCH ×2 (07:45→12:22)
[2020-12-03] MEDS: ASPIRIN 81 MG CHEW (CHILDREN'S ASA) PO SCH (07:46)
[2020-12-03] MEDS: CLOPIDOGREL 75 MG (PLAVIX) TABLET PO SCH (07:47)
[2020-12-03] MEDS: GABAPENTIN 300 MG (NEURONTIN) CAP PO SCH ×2 (07:47→12:22)
[2020-12-03] MEDS: PANTOPRAZOLE 20 MG TABLET (PROTONIX) PO SCH (07:47)
[2020-12-03] MEDS: diphenhydrAMINE 25 MG TAB (BENADRYL) PO PRN (08:32)
[2020-12-03] MEDS: hydrALAZINE (APRESOLINE) 25 MG TAB PO SCH ×2 (08:32→12:22)
[2020-12-03] MEDS: lisINopril 20 MG (PRINIVIL) TABLET PO SCH (08:32)
[2020-12-03] MEDS: VANCOMYCIN 1250 MG/NS 250 ML IVPB IV SCH ×2 (08:33)
[2020-12-03] MEDS: meTOprolol SUCCINATE 100 MG (TOPROL XL) TAB PO SCH (08:33)
[2020-12-03] MEDS ORDERED: BUPIVACAINE 0.5% 30 ML (SENSORCAINE) VIAL ONE (08:45)
[2020-12-03] MEDS ORDERED: SEVOFLURANE (ULTANE) 15 ML INHAL SOLN ONE (09:06)
[2020-12-03] MEDS ORDERED: LIDOCAINE PF 2% 5 ML (XYLOCAINE) VIAL ONE (09:06)
[2020-12-03] MEDS ORDERED: proPOfol 200 MG/20 ML (DIPRIVAN) VIAL IV ONE (09:06)
[2020-12-03] MEDS ORDERED: fentaNYL INJ 100 MCG/2 ML AMP ONE (09:06)
[2020-12-03] MEDS ORDERED: MIDAZOLAM 2 MG/2 ML (VERSED) VIAL ONE (09:07)
[2020-12-03] MEDS ORDERED: LACTATED RINGERS 1,000 ML IV PRN ×2 (09:15→10:00)
[2020-12-03] MEDS ORDERED: SILVER SULFADIAZINE 50 GM CREAM ONE (10:29)
[2020-12-03] MEDS ORDERED: PROPOFOL INJECTION 50 ML IV ONE (11:16)
--- NOTE | 2020-12-03 11:28 | Progress Note - Hospitalist ---
ALEXEI ANNE MED STUDENT 12/03/20 1128: Subjective HPI/CC On Admission Date Seen by Provider: Dec 03, 2020 Time Seen by Provider: 08:30 Patient denies any significant foot pain and also denies chest pain or shortness of breath. Minimal bleeding reported on bandage which was changed shortly before I came in because the old bandage had come off. Subjective/Events-last exam Pt awake and lying in bed upon entry. Pt appears pale/tired and responds in short sentences. Pt notes R foot pain at a 6/10 but is under control. R foot currently bandaged and wrapped so unable to visualize. Pt states that she will be going to surgery this AM to put things back together referring to the delayed primary closure of the amputation site. Pt also notes that she believes Dr. Sarmiento will allow her to be discharged today if she does well with the surgery. No acute events over night. Review of Systems General: No Chills; Fatigue HEENT: No Head Aches, No Dysphasia Pulmonary: No Dyspnea; Cough Cardiovascular: No: Chest Pain, Palpitations Gastrointestinal: No: Nausea, Vomiting, Abdominal Pain Genitourinary: No Dysuria, No Hematuria Musculoskeletal: foot pain (6/10 and controlled (right foot)); No: back pain Neurological: Numbness (peripheral neuropathy); No: Weakness Objective Exam Vital Signs Vital Signs Date Time Temp Pulse Resp B/P (MAP) Pulse Ox O2 Delivery O2 Flow Rate FiO2 12/03/20 08:00 Room Air 12/03/20 04:29 36.8 88 20 181/75 (110) 94 11/30/20 15:49 10 11/29/20 13:17 21 Capillary Refill : Less Than 3 Seconds General Appearance: No Apparent Distress, WD/WN HEENT: PERRL/EOMI, Moist Mucous Membranes Neck: Full Range of Motion, Normal Inspection, Supple Respiratory: Chest Non Tender, Lungs Clear, Normal Breath Sounds, No Accessory Muscle Use, No Respiratory Distress Cardiovascular: Regular Rate, Rhythm, No Edema, No Gallop, Systolic Murmur (3/6 best heard over aortic outflow) Gastrointestinal: Normal Bowel Sounds, Non Tender, Soft Rectal: Deferred Back: Normal Inspection, No Vertebral Tenderness Extremity: Normal Inspection, Non Tender, No Calf Tenderness, No Pedal Edema, Other (R foot 4-5th digit amputation ) Neurologic/Psychiatric: Alert, Oriented x3, Depressed Affect, Sensory Deficit Skin: Warm/Dry, Pallor Results/Procedures Lab Laboratory Tests 12/03/20 06:45 Patient resulted labs reviewed. Assessment/Plan Assessment and Plan Assess & Plan/Chief Complaint ASSESSMENT: Status post R foot 4-5th metatarsal amputation (osteomyelitis) R 1st metatarsal head ulceration Poorly controlled diabetes Systolic heart murmur Anemia - 8.7 PLAN: (Torsten) Delayed primary closure of amputation site and debridement of right 1st metatarsal head ulceration this AM Pain management Continue abx Blood sugar control Monitor Hgb Appreciate Dr. Wei recs regarding discharge LIN NORRIS DO 12/04/20 0620: Subjective Subjective/Events-last exam See DC summary Review of Systems Musculoskeletal: foot pain (10 and controlled (right foot)) Objective Exam General Appearance: No Apparent Distress, WD/WN, Chronically ill Respiratory: Lungs Clear Cardiovascular: Regular Rate, Rhythm Neurologic/Psychiatric: Alert, Oriented x3, No Motor/Sensory Deficits, Normal Mood/Affect Assessment/Plan Assessment and Plan Assess & Plan/Chief Complaint DC home Supervisory-Addendum Brief Verification & Attestation Participated in pt care: history, MDM, physical Personally performed: exam, history, MDM, supervision of care Care discussed with: Medical Student Procedures: n/a Results interpretation: Verified all documentation Verification and Attestation of Medical Student E/M Service A medical student performed and documented this service in my presence. I reviewed and verified all information documented by the medical student and made modifications to such information, when appropriate. I personally performed the physical exam and medical decision making. Lin Norris Dec 04, 2020,06:19 ALEXEI ANNE MED STUDENT Dec 03, 2020 11:28 LIN NORRIS DO Dec 04, 2020 06:20
--- NOTE | 2020-12-03 11:34 | Progress Note-Post Operative ---
Post-Operative Progess Note Surgeon (s)/Mushroom Picker (s) Surgeon MARIBEL KIRK DPM Mushroom Picker: none Pre-Operative Diagnosis Osteomyelitis right 4th and 5th toes. Post-Operative Diagnosis Same, with full thickness ulceration to the right 1st metatarsal head area. Procedure & Operative Findings Date of Procedure 12/03/20 Procedure Performed/Findings 1) Delayed Primary Closure to right 4th and 5th toe amputation sites 2) Debridement of right 1st metatarsal head ulceration (subcutaneous level) Anesthesia Type MAC Estimated Blood Loss Estimated blood loss (mL): Minimal Specimens/Packing Specimens Removed None Packing: None MARIBEL KIRK DPM Dec 03, 2020 11:34
[2020-12-03] MEDS ORDERED: HYDROcodone/APAP 5 MG/325 MG (LORTAB) TAB PO PRN (11:45)
[2020-12-03] MEDS ORDERED: LACTATED RINGERS 1,000 ML IV SCH (11:45)
[2020-12-03] MEDS ORDERED: ESMOLOL 100 MG/10 ML (BREVIBLOC) VIAL ONE (12:06)
--- NOTE | 2020-12-03 12:08 | Anesthesia-General Post-Op ---
MAC Patient Condition Mental Status/LOC: Same as Preop Cardiovascular: Satisfactory Nausea/Vomiting: Absent Respiratory: Satisfactory Pain: Controlled Complications: Absent Post Op Complications Complications None Follow Up Care/Instructions Patient Instructions None needed. Anesthesiology Discharge Order Discharge Order Patient is doing well, no complaints, stable vital signs, no apparent adverse anesthesia problems. No complications reported per nursing. SHARLENE STERN CRNA Dec 03, 2020 12:08
[2020-12-03] MEDS ORDERED: CEPH500T PO (12:35)
[2020-12-03] MEDS ORDERED: LISI20TA26 PO (12:35)
--- NOTE | 2020-12-03 12:37 | Discharge Summary ---
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 (6) HTN (hypertension) Status: Acute Qualifiers: Qualified Codes: I10 - Essential (primary) hypertension (7) CAD (coronary artery disease) Status: Chronic Qualifiers: Qualified Codes: I25.10 - Atherosclerotic heart disease of [place] coronary artery without angina pectoris (8) DVT prophylaxis Hospital Course Date of Admission: Nov 26, 2020 at 16:58 Admission Diagnosis : Family Physician/Provider: [place] Date of Discharge: 12/03/20 Discharge Diagnosis: osteomyelitis, s/p resection Hospital Course: Hospital course: Pt had a lengthy hospital course, she was admitted for osteomyelitis of the right foot, she was placed on appropriate broad-spectrum antibiotics and Dr. Sarmiento was consulted who ultimately removed the second and third tow, she overall did very well. Hgb was slightly low at 8.4 from a baseline of 11.4 prior to surgery. Echocardiogram showed EF of 65%, she was overall ready for discharge and will be placed on Keflex of 500 mg daily TID for an additional [address] Sarmiento's recommendation Labs and Pending Lab Test: Laboratory Tests 12/02/20 16:02: Glucometer 131H 12/02/20 20:54: Glucometer 156H 12/03/20 05:40: Glucometer 122H 12/03/20 06:45: White Blood Count 9.5, Red Blood Count 3.07L, Hemoglobin 8.7L, Hematocrit 28L, Mean Corpuscular Volume 91, Mean Corpuscular Hemoglobin 28, Mean Corpuscular Hemoglobin Concent 31L, Red Cell Distribution Width 14.6H, Platelet Count 264, Mean Platelet Volume 9.1, Immature Granulocyte % (Auto) 1, Neutrophils (%) (Auto) 74, Lymphocytes (%) (Auto) 16, Monocytes (%) (Auto) 7, Eosinophils (%) (Auto) 3, Basophils (%) (Auto) 0, Neutrophils # (Auto) 7.0, Lymphocytes # (Auto) 1.5, Monocytes # (Auto) 0.6, Eosinophils # (Auto) 0.3, Basophils # (Auto) 0.0, Immature Granulocyte # (Auto) 0.1, Sodium Level 142, Potassium Level 3.7, Chlo ride Level 107, Carbon Dioxide Level 24, Anion Gap 11, Blood Urea Nitrogen 15, Creatinine 1.41H, Estimat Glomerular Filtration Rate 38, BUN/Creatinine Ratio 11, Glucose Level 127H, Calcium Level 9.2, Corrected Calcium 9.9, Total Bilirubin 0.3, Aspartate Amino Transf (AST/SGOT) 21, Alanine Aminotransferase (ALT/SGPT) 15, Alkaline Phosphatase 76, Total Protein 6.6, Albumin 3.1L 12/03/20 12:21: Glucometer 105 Microbiology 11/30/20 Gram Stain - Final, Resulted 11/30/20 Anaerobic Culture, Resulted Pending 11/30/20 Surgical Culture - Preliminary, Resulted No growth 11/29/20 MRSA Screen - Final, Complete MRSA not isolated 11/26/20 Urine Culture - Final, Complete >=3 Gram Positive Isolates 11/26/20 Blood Culture - Final, Complete No growth Home Meds Active Cephalexin 500 Mg Tablet 500 Mg PO TID Lisinopril 20 Mg Tablet 20 Mg PO DAILY Reported Vitamin D3 (Cholecalciferol (Vitamin D3)) 25 Mcg Capsule 25 Mcg PO DAILY Atorvastatin Calcium 80 Mg Tablet 80 Mg PO DAILY Victoza 3-Rigo (Liraglutide) 0.6 Mg/0.1 Ml Pen.injctr 1.8 Mg SQ HS Tums (Calcium Carbonate) 300 Mg Tab.chew 300-600 Mg PO PRN PRN Stool Softener (Docusate Sodium) 100 Mg Capsule 100-200 Mg PO BID PRN Zinc 50 Mg Tablet 50 Mg PO DAILY Insulin Aspart 100 Unit/1 Ml Vial 12 Units SC AC Furosemide 40 Mg Tablet 40 Mg PO DAILY PRN Probiotic (L.acidoph & Paracasei,B.lactis) 1 Each Capsule 1 Each PO DAILY Neurontin (Gabapentin) 300 Mg Capsule 900 Mg PO TID TAKES 3 (300MG) TABS Pantoprazole Sodium 20 Mg Tablet.dr 20 Mg PO DAILY Clopidogrel (Clopidogrel Bisulfate) 75 Mg Tablet 75 Mg PO DAILY Tresiba Flextouch U-100 (Insulin Degludec) 100 Unit/1 Ml Insuln.pen 40 Units SC HS Aspirin 81 Mg Tab.chew 81 Mg PO DAILY Hydralazine HCl 50 Mg Tablet 50 Mg PO TID Metoprolol Succinate 200 Mg Tab.er.24h 200 Mg PO DAILY Glimepiride 4 Mg Tablet 4 Mg PO BID Tramadol HCl 50 Mg Tablet 50 Mg PO TID PRN Assessment/Pt Instructions [facility] [address] Sarmiento as scheduled Discharge Planning: <30 minutes discharge planning Discharge Instructions Discharge Diet: No Restrictions Discharge Physical Examination Vital Signs Vital Signs Date Time Temp Pulse Resp B/P (MAP) Pulse Ox O2 Delivery O2 Flow Rate FiO2 12/03/20 12:07 Room Air 12/03/20 11:51 36.8 88 94 21 12/03/20 11:30 5 12/03/20 04:29 20 181/75 (110) General Appearance: No Apparent Distress, WD/WN, Chronically ill Respiratory: Lungs Clear, Normal Breath Sounds Cardiovascular: Regular Rate, Rhythm Neurologic/Psychiatric: Alert, Oriented x3, No Motor/Sensory Deficits, Normal Mood/Affect Allergies: Coded Allergies: No Known Drug Allergies (Unverified , 04/02/20) Discharge Summary Date of Admission Nov 26, 2020 at 16:58 Date of Discharge Discharge Date: Dec 03, 2020 Discharge Diagnosis (1) Osteomyelitis Status: Acute Assessment & Plan: - Vanc/Zosyn D2, General surgery consult for debridment and wound care, wound care nurse consulted, MRI reviewed with patient 11/28: D3 Angelita/Ang, Dr Sarmiento to see patient today, Patient will likely need PICC line 11/29: D4 Vanc/Zosyn, Patient to OR tomorrow 11/30: D5 Vanc/Zosyn, OR today, will likely need [facility] antibiotics, PICC in place Qualifiers: (2) Diabetic ulcer of foot associated with diabetes mellitus due to underlying condition, with necrosis of muscle Status: Acute Assessment & Plan: 11/29: Restart insulin at lower doses due to change in diet, SSI/Accuchecks Qualifiers: Qualified Codes: E08.621 - Diabetes mellitus due to underlying condition with foot ulcer; L97.513 - Non-pressure chronic ulcer of other part of right foot with necrosis of muscle (3) Cellulitis of foot associated with diabetes mellitus Status: Acute (4) Insulin dependent diabetes mellitus with complications Status: Chronic Assessment & Plan: - A1c pending, home insulin restarted at reduced doses due to diet, SSI/Accuchecks 11/28: A1c pending, discussed the importance of blood sugar control and wound healing 11/29: A1c 9.0 (5) 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
--- NOTE | 2020-12-03 19:07 | OPERATIVE REPORT ---
DATE OF SERVICE: 12/03/2020 SURGEON: Tracey Kirk DPM. PREOPERATIVE DIAGNOSES: 1. Status post amputation of right fourth and fifth digits and fourth metatarsal head. 2. Ulceration, Dozier grade II to the right first metatarsal head. POSTOPERATIVE DIAGNOSES: 1. Status post amputation of right fourth and fifth digits and fourth metatarsal head. 2. Ulceration, [place]zier grade II to the right first metatarsal head. PROCEDURE: 1. Delayed primary closure of the right fourth and fifth digit amputation site. 2. Debridement of ulceration, right first metatarsal head down to subcutaneous tissue. WOUND CLASS: Clean contaminated. ANESTHESIA: Monitored anesthesia care. HEMOSTASIS: Pneumatic ankle tourniquet at 250 mmHg. INDICATIONS: This 65-year-old female presents with osteomyelitis of the right fourth toe and metatarsal as well as the right fifth digit. She also has a chronic ulceration to the right first metatarsal head area. She was subsequently admitted and underwent an amputation of the fourth and fifth digits of the right foot as well as the right fourth metatarsal head. She has been nonweightbearing on the right foot as much as possible during her hospital stay, which is healthy ulceration to the first metatarsal head as well. After IV antibiotics and the wound progressing nicely, we have decided to have a delayed primary closure of the amputation site, right foot. The patient is agreeable to surgical intervention after risks and complications were discussed at length. She understands there is no guarantee that she will continue to heal and not need any other further surgical intervention, she will continue with IV antibiotics for now. DESCRIPTION OF PROCEDURE: The patient was brought back to the operating table, placed in secure supine position. Appropriate timeout was performed. The right foot was anesthetized to the fourth and fifth toe amputation site utilizing 6 mL of 0.5% Marcaine injected a local infusion to the surgical site. The right foot was prepped and draped in normal sterile manner. The right foot was then elevated, allowed to exsanguinate after which the tourniquet was inflated to 250 mmHg. Attention was directed to the amputation site where some of the fibrotic tissue was identified and sharply resected. Some flexor and extensor tendons were identified and resected as proximally as possible. No necrosis, no purulent discharge was identified in the wound. We utilized approximately 2000 mL of normal saline for power irrigation to the amputation site after which a swab culture was taken. Closure was then performed in layers. Deep closure was performed with 4-0 Vicryl, skin closure with 4-0 Prolene in a simple interrupted type stitch. The skin edges came together fairly well with minimal tension. Attention then was directed to the plantar aspect of the right first metatarsal head where a 15 blade was utilized to reduce hyperkeratotic tissue to the border of the wound as well as debrided the fibrotic tissue from the ulceration site into the subcutaneous tissue. No deep probing was identified. No malodor, no fluctuance, no proximal streaking is identified. The wound after debridement measured approximately 14 x 11 mm and 5 mm in depth. Power irrigation was also utilized for this wound as well. Silvadene cream and a gauze dressing was then applied. Betadine-soaked Adaptic and gauze dressing was applied to the amputation delayed primary closure site. Tourniquet was released noting appropriate cap refill time to remaining digits of the right foot. Postoperative dressing included the Betadine soaked Adaptic, sterile 4 x 4, sterile Kerlix all secured with a Coban wrap to the right foot. The patient is to have minimal weightbearing on the right foot with heel contact for transfers and balance only. We will see her back in the office in approximately 1 week period of time or sooner if necessary. Job ID: [id number] DocumentID: [id number] Dictated Date: 12/03/2020 11:42:13 Supervisor Home Economics Date: 12/03/2020 19:06:53 Dictated By: TRACEY KIRK DPM
--- NOTE | 2020-12-04 08:18 | Anesthesia-General Post-Op ---
General Patient Condition Mental Status/LOC: Same as Preop Cardiovascular: Satisfactory Nausea/Vomiting: Absent Respiratory: Satisfactory Pain: Controlled Complications: Absent Post Op Complications Complications None Follow Up Care/Instructions Patient Instructions None needed. Anesthesia/Patient Condition Patient Condition Patient is doing well, no complaints, stable vital signs, no apparent adverse anesthesia problems. No complications reported per nursing. RICARDO GARRISON CRNA Dec 04, 2020 08:18
== END 2020-12-03 13:18 | disposition home or self-care (01) | DRG 617 ==
LOC: EDUNIT# 13:00 → ER 13:02 → 4TH 16:58
PROVIDERS: ADMIT Family Medicine; ATTEND Internal Medicine
PROC: 0Y6M0ZF Detachment at Right Foot, Partial 5th Ray, Open Approach (ICD-10-PCS; 2020-11-30)
PROC: 0Y6M0ZD Detachment at Right Foot, Partial 4th Ray, Open Approach (ICD-10-PCS; principal; 2020-11-30 14:20)
PROC: 0JBQ0ZZ Excision of Right Foot Subcutaneous Tissue and Fascia, Open Approach (ICD-10-PCS; 2020-12-03)
DX: E11.69 Type 2 diabetes mellitus with other specified complication (principal); M86.8X7 Other osteomyelitis, ankle and foot; L03.115 Cellulitis of right lower limb; I25.10 Atherosclerotic heart disease of native coronary artery without angina pectoris; I10 Essential (primary) hypertension; E11.51 Type 2 diabetes mellitus with diabetic peripheral angiopathy without gangrene; E11.40 Type 2 diabetes mellitus with diabetic neuropathy, unspecified; K21.9 Gastro-esophageal reflux disease without esophagitis; M79.7 Fibromyalgia; E11.621 Type 2 diabetes mellitus with foot ulcer; L97.519 Non-pressure chronic ulcer of other part of right foot with unspecified severity; D72.829 Elevated white blood cell count, unspecified; E11.628 Type 2 diabetes mellitus with other skin complications; D64.9 Anemia, unspecified; R01.1 Cardiac murmur, unspecified; Z79.82 Long term (current) use of aspirin; Z79.4 Long term (current) use of insulin; Z87.891 Personal history of nicotine dependence; Z95.5 Presence of coronary angioplasty implant and graft
CPT/HCPCS: 36415; 36569; 73620; 73630; 76937; 80053; 80202; 81000; 82728; 82962; 83036; 83540; 83550; 83605; 85007; 85025; 85027; 85610; 85730; 87040; 87070; 87075; 87076; 87077; 87081; 87088; 87205; 93306; 94760; 96365; 96366; 96375

== ENCOUNTER 2021-05-02 05:28 | Outpatient (RCR) | payer BC, MEDICARE ==
[~2021-05-02] VITALS: Ht 167.7 cm; Wt 88.6 kg
[~2021-05-02 05:28] MED LIST changes: +CEPH500T PO; +CHOL10007 PO; -DOCU-238 PO; +DOCU-26 PO; +DOXA1TAB2 PO; +LIRA0.6P3 SQ; +LISI20TA26 PO; +PNV1TABL81 PO
== END 2021-05-02 08:57 | disposition home or self-care (01) ==
LOC: PREOP 05:28
PROVIDERS: ATTEND Podiatrist Foot & Ankle Surgery
DX: Z01.812 Encounter for preprocedural laboratory examination (principal); L97.519 Non-pressure chronic ulcer of other part of right foot with unspecified severity; Z20.822 Contact with and (suspected) exposure to COVID-19
CPT/HCPCS: 87635

== ENCOUNTER 2021-05-06 08:23 | Day surgery (SDC) | payer MEDICARE, OTHER ==
[2021-05-06] VITALS (11 sets, daily range): BP systolic 106–154; BP diastolic 61–90
[~2021-05-06] VITALS: Ht 167.7 cm; Wt 88.6 kg
[2021-05-06] MEDS ORDERED: LIDOCAINE 1% INJ 20 ML 20 ML VIAL ONE (08:40)
[2021-05-06] MEDS ORDERED: BUPIVACAINE 0.5% 30 ML (SENSORCAINE) VIAL ONE (08:40)
[2021-05-06] MEDS ORDERED: ONDANSETRON 4 MG/2 ML (SDV) Z0FRAN ONE (09:02)
[2021-05-06] MEDS ORDERED: LIDOCAINE PF 2% 5 ML (XYLOCAINE) VIAL ONE (09:02)
[2021-05-06] MEDS ORDERED: proPOfol 200 MG/20 ML (DIPRIVAN) VIAL IV ONE (09:02)
[2021-05-06] MEDS ORDERED: fentaNYL INJ 100 MCG/2 ML AMP ONE (09:03)
[2021-05-06] MEDS ORDERED: MIDAZOLAM 2 MG/2 ML (VERSED) VIAL ONE (09:03)
[2021-05-06] MEDS ORDERED: ceFAZolin INJECTION 1,000 MG in WATER (STERILE) FOR INJECTION 10 ML IV ONE (09:15)
[2021-05-06] MEDS ORDERED: ceFAZolin INJECTION 1,000 MG ONE (09:19)
[2021-05-06] MEDS ORDERED: WATER (STERILE) FOR INJECTION 10 ML ONE (09:20)
[2021-05-06] MEDS: LACTATED RINGERS 1,000 ML IV PRN ×2 (09:26→10:40)
--- NOTE | 2021-05-06 09:34 | Progress Note-Pre Operative ---
Pre-Operative Progress Note H&P Reviewed The H&P was reviewed, patient examined and no changes noted. Date Seen by Provider: May 06, 2021 Time Seen by Provider: 09:33 Date H&P Reviewed: May 06, 2021 Time H&P Reviewed: 09:33 Pre-Operative Diagnosis: Chronic Ulcerations, Hammertoe, right MARIBEL KIRK DPBrodie May 06, 2021 09:34
[2021-05-06] MEDS ORDERED: SEVOFLURANE (ULTANE) 15 ML INHAL SOLN ONE (10:49)
--- NOTE | 2021-05-06 11:02 | Progress Note-Post Operative ---
Post-Operative Progess Note Surgeon (s)/Emergency Planner (s) Surgeon MARIBEL KIRK DPM Emergency Planner: none Pre-Operative Diagnosis Chronic Ulcerations, Hammertoe, right Post-Operative Diagnosis Same Procedure & Operative Findings Date of Procedure 05/06/21 Procedure Performed/Findings Transmetatarsal Amputation, Right Anesthesia Type General Estimated Blood Loss Estimated blood loss (mL): Minimal Specimens/Packing Specimens Removed right forefoot Packinmm flat drain MARIBEL KIRK DPM May 06, 2021 11:02
[2021-05-06] MEDS ORDERED: CEPH500C PO (11:07)
[2021-05-06] MEDS ORDERED: ACHD5005 PO (11:07)
[2021-05-06] MEDS ORDERED: LACTATED RINGERS 1,000 ML IV SCH (11:15)
[2021-05-06] MEDS ORDERED: HYDROcodone/APAP 5 MG/325 MG (LORTAB) TAB PO PRN (11:15)
--- NOTE | 2021-05-06 11:34 | Anesthesia-General Post-Op ---
General Patient Condition Mental Status/LOC: Same as Preop Cardiovascular: Satisfactory Nausea/Vomiting: Absent Respiratory: Satisfactory Pain: Controlled Complications: Absent Post Op Complications Complications None Follow Up Care/Instructions Patient Instructions None needed. Anesthesia/Patient Condition Patient Condition Patient is doing well, no complaints, stable vital signs, no apparent adverse anesthesia problems. No complications reported per nursing. BELLE SAEED CRNA May 06, 2021 11:34
--- NOTE | 2021-05-06 12:43 | Diagnostic Imaging Report ---
INDICATION: Osteomyelitis. Status post partial foot amputation. COMPARISON: 11/30/2020. FINDINGS: Two radiographic views of the right foot were obtained and show post surgical changes of interval partial amputation of the distal foot involving the distal margins of the metatarsals. A surgical drain is present. No unexpected radiopaque foreign bodies are seen. The remaining osseous structures are otherwise intact. The joint spaces are maintained. IMPRESSION: Expected post surgical changes of partial right foot amputation as described above. Dictated by: Dictated on workstation # [id number]
--- NOTE | 2021-05-06 17:57 | OPERATIVE REPORT ---
DATE OF SERVICE: 05/06/2021 SURGEON: Tracey Kirk DPM. PREOPERATIVE DIAGNOSES: 1. Chronic ulcerations, right foot. 2. History of multiple amputations, right foot. 3. Hammer digit syndrome, right second toe. POSTOPERATIVE DIAGNOSES: 1. Chronic ulcerations, right foot. 2. History of multiple amputations, right foot. 3. Hammer digit syndrome, right second toe. PROCEDURE PERFORMED: Transmetatarsal amputation, right foot. WOUND CLASS: Clean contaminated. ANESTHESIA: General. HEMOSTASIS: Pneumatic thigh tourniquet at 300 mmHg. INDICATIONS FOR PROCEDURE: This 66-year-old female presents complaining of a chronic wound to the right first metatarsal head and right second toe. She has had multiple surgeries due to osteomyelitis removing several digits, but really not relieving any of the pressure points to the first and second rays. We talked about transmetatarsal amputation to better stabilize the pressure points of the right forefoot, thus allowing for less wound care and risk of further amputation. The patient understands that there are no guarantees and she is willing to proceed. DESCRIPTION OF PROCEDURE: The patient was brought back to the operating table and placed in a secure supine position. Appropriate timeout was performed. A general anesthetic was induced. Pneumatic thigh tourniquet was placed on the right lower extremity over several layers of padding. The right foot was then prepped and draped in a normal sterile manner. The right foot was then elevated and allowed to exsanguinate after which the tourniquet was inflated to 300 mmHg. Attention was then directed to the right forefoot, where two semielliptical incisions were made, the first was just proximal to the first metatarsal head medial aspect extending slightly anteriorly and superiorly across in a parabola overlying the metatarsals, extending inferiorly and posteriorly to the fifth metatarsal surgical neck area. The next incision extended from the medial aspect of the foot in the same starting position extending distally along the sulcus area of the foot providing a plantar flap for postoperative closure. Again, this incision extended along the sulcus of what remained of the forefoot extending to the lateral aspect of the fifth metatarsal surgical neck. Next, utilizing a combination of blunt and sharp dissection, the dorsal aspect of the transmetatarsal amputation cut was deepened down to the bone. The extensor tendons were identified and cut as proximally as possible. Only the active bleeders were cauterized as encountered. The incision was deepened down to the fifth, third, second and first metatarsals, where utilizing a power sagittal saw, a transmetatarsal amputation was performed and a parabola predetermined by preoperative x-ray analysis. The cuts were biased from dorsal distal to plantar proximal to avoid plantar pressure areas that might develop into ulcerations later on for the patient. Once these cuts were performed, dissection was carried out to the plantar flap to the area of the osteotomies. This released the forefoot, which was sent for gross and microscopic evaluation. The plantar flap was evaluated and there was a partially healed wound to the first metatarsal head area of the plantar flap. This area was wedged with a skin incision to completely excise this previous ulceration site. A swab culture was taken to the right first metatarsal medullary canal. No necrosis. No abscess, no abnormal findings were identified at this time. The flexor and extensor tendons were identified and cut as proximally as possible. The edges, especially plantar to the metatarsals were further contoured and smoothed with a hand rasp. The tourniquet was released and any active bleeders were cauterized as encountered. Appropriate amount of bleeding was identified to the plantar flap as well as interosseous spaces. The wound was flushed with copious amounts of normal saline after which a final culture swab was taken to the wound prior to closure. An 11-blade was utilized to create a hole on the lateral aspect of the fifth metatarsal, right foot, where a Kendall-Boyd type drain, 7 mm flat, was passed through this portal and the collection portion of the drain placed inferior to the metatarsal areas. Next, the plantar flap was sutured in place with minimal skin tension utilizing 4-0 Prolene in a simple interrupted type stitch. Postoperative injection consisted of 20 mL of 0.5% Marcaine injected in a local infusion to the surgical site. Postoperative dressing consisted of Betadine soaked Adaptic, multiple 4 x 4s including drain sponge, ABD, Kerlix all secured with a Coban wrap. The patient tolerated the anesthesia and procedure well and was transported from the operating room to the recovery room with vital signs stable. She is to be partial weightbearing with heel contact only on the right lower extremity, utilizing her walker or knee scooter. We will see the patient back in the office in two days' period of time for removal of the drain. She was given a prescription for cephalexin and Keflex. Job ID: [id number] DocumentID: [id number] Dictated Date: 05/06/2021 11:17:32 Calciner Operator Helper Date: 05/06/2021 17:56:36 Dictated By: TRACEY KIRK DPM
== END 2021-05-06 13:05 | disposition home or self-care (01) ==
LOC: SDC 08:23
PROVIDERS: ATTEND Podiatrist Foot & Ankle Surgery
DX: E11.621 Type 2 diabetes mellitus with foot ulcer (principal); L97.919 Non-pressure chronic ulcer of unspecified part of right lower leg with unspecified severity; M20.41 Other hammer toe(s) (acquired), right foot; M86.671 Other chronic osteomyelitis, right ankle and foot; I10 Essential (primary) hypertension; I25.10 Atherosclerotic heart disease of native coronary artery without angina pectoris; E78.5 Hyperlipidemia, unspecified; E11.40 Type 2 diabetes mellitus with diabetic neuropathy, unspecified; K21.9 Gastro-esophageal reflux disease without esophagitis; Z95.1 Presence of aortocoronary bypass graft; Z79.4 Long term (current) use of insulin; Z79.899 Other long term (current) drug therapy; Z79.82 Long term (current) use of aspirin; Z79.02 Long term (current) use of antithrombotics/antiplatelets; Z87.891 Personal history of nicotine dependence; Z83.3 Family history of diabetes mellitus; Z80.49 Family history of malignant neoplasm of other genital organs
CPT/HCPCS: 73620; 82947; 87070; 87075; 87081; 87205

== ENCOUNTER 2021-06-04 05:38 | Outpatient (CLI) | payer MEDICARE, OTHER ==
[~2021-06-04] VITALS: Ht 165 cm; Wt 88.6 kg
[2021-06-04] MEDS ORDERED: INSU100V16 SQ (15:53)
== END 2021-06-04 16:12 | disposition home or self-care (01) ==
LOC: PREOP 05:38
PROVIDERS: ATTEND Podiatrist Foot & Ankle Surgery
DX: Z01.818 Encounter for other preprocedural examination (principal)

== ENCOUNTER 2021-06-07 11:24 | Day surgery (SDC) | payer MEDICARE, OTHER ==
[~2021-06-07] VITALS: Ht 165 cm; Wt 88.6 kg
[2021-06-07] VITALS (12 sets, daily range): BP systolic 120–185; BP diastolic 57–82
[~2021-06-07 11:24] MED LIST changes: +INSU100V16 SQ
[2021-06-07] MEDS ORDERED: proPOfol 200 MG/20 ML (DIPRIVAN) VIAL IV ONE (11:38)
[2021-06-07] MEDS ORDERED: ONDANSETRON 4 MG/2 ML (SDV) Z0FRAN ONE (11:38)
[2021-06-07] MEDS ORDERED: SEVOFLURANE (ULTANE) 15 ML INHAL SOLN ONE ×2 (11:38→13:44)
[2021-06-07] MEDS ORDERED: LIDOCAINE PF 2% 5 ML (XYLOCAINE) VIAL ONE (11:38)
[2021-06-07] MEDS ORDERED: MIDAZOLAM 2 MG/2 ML (VERSED) VIAL ONE (11:39)
[2021-06-07] MEDS ORDERED: fentaNYL INJ 100 MCG/2 ML AMP ONE (11:39)
[2021-06-07] MEDS ORDERED: ceFAZolin INJECTION 1,000 MG in WATER (STERILE) FOR INJECTION 10 ML IV ONE (12:00)
[2021-06-07] MEDS ORDERED: LACTATED RINGERS 1,000 ML IV PRN (12:00)
[2021-06-07] MEDS ORDERED: BUPIVACAINE 0.5% 30 ML (SENSORCAINE) VIAL ONE (12:10)
[2021-06-07] MEDS ORDERED: LIDOCAINE 1% INJ 20 ML 20 ML VIAL ONE (12:10)
--- NOTE | 2021-06-07 12:40 | Progress Note-Pre Operative ---
Pre-Operative Progress Note H&P Reviewed The H&P was reviewed, patient examined and no changes noted. Date Seen by Provider: Jun 07, 2021 Time Seen by Provider: 12:40 Date H&P Reviewed: Jun 07, 2021 Time H&P Reviewed: 12:40 Pre-Operative Diagnosis: Open Wound Right Foot MARIBEL KIRK DPM Jun 07, 2021 12:40
[2021-06-07] MEDS ORDERED: LACTATED RINGERS 1,000 ML IV SCH (14:00)
[2021-06-07] MEDS ORDERED: HYDROcodone/APAP 5 MG/325 MG (LORTAB) TAB PO PRN (14:00)
[2021-06-07] MEDS ORDERED: ONDANSETRON 4 MG/2 ML (SDV) Z0FRAN IVP PRN (14:00)
[2021-06-07] MEDS ORDERED: HYDROmorphone 2 MG/ML VIAL (DILAUDID) IV ONE (14:00)
--- NOTE | 2021-06-07 14:00 | Progress Note-Post Operative ---
Post-Operative Progess Note Surgeon (s)/Engine Repairer Production (s) Surgeon MARIBEL KIRK DPM Engine Repairer Production: none Pre-Operative Diagnosis Open Wound Right Foot Post-Operative Diagnosis Same Procedure & Operative Findings Date of Procedure 06/07/21 Procedure Performed/Findings Delayed Closure of Right Foot Wound Anesthesia Type General Estimated Blood Loss Estimated blood loss (mL): Minimal Specimens/Packing Specimens Removed None MARIBEL KIRK DPM Jun 07, 2021 14:00
--- NOTE | 2021-06-07 14:01 | Anesthesia-General Post-Op ---
General Patient Condition Mental Status/LOC: Same as Preop Cardiovascular: Satisfactory Nausea/Vomiting: Absent Respiratory: Satisfactory Pain: Controlled Complications: Absent Post Op Complications Complications None Follow Up Care/Instructions Patient Instructions None needed. Anesthesia/Patient Condition Patient Condition Patient is doing well, no complaints, stable vital signs, no apparent adverse anesthesia problems. No complications reported per nursing. D/C home per [facility] Criteria: Yes TAINA HERNANDEZ CRNA Jun 07, 2021 14:01
[2021-06-07] MEDS ORDERED: CLIN150C2 PO (14:03)
--- NOTE | 2021-06-07 15:29 | Physical Therapy Ortho Eval ---
PT Orthopedic Evaluation Type of Surgery diabetic ulceration right foot Prior Level of Function Current Living Status: Spouse Established Durable Medical Eq: Front Wheeled Walker Patient states she was using a knee scooter previously Subjective Subjective Patient in bed pre tx, agrees to PT, has 5/10 pain in right foot. Entry Into Home: Stairs With Railing Steps Into Home: 3 Motor Control Motor Control: Motor Control WNL Transfer SCALE: Activities may be completed with or without assistive devices. 0-Etizfmvcqs-fnysgow completes the activity by him/herself with no assistance from a helper. 5-Set-up or Clean-up Assistance-helper sets up or cleans up; patient completes activity. [place] assists only prior to or following the activity. 4-Supervision or Touching Assistance-helper provides verbal cues and/or touching/steadying and/or contact guard assistance as patient completes activity. Assistance may be provided throughout the activity or intermittently. 3-Partial/Moderate Assistance-helper does LESS THAN HALF the effort. [place] lifts, holds or supports trunk or limbs, but provides less than half the effort. 2-Substantial/Maximal Assistance-helper does MORE THAN HALF the effort. [place] lifts or holds trunk or limbs and provides more than half the effort. 5-Aqpfusmbf-edrtdv does ALL the effort. Patient does none of the effort to complete the activity. Or, the assistance of 2 or more helpers is required for the patient to complete the activity. If activity was not attempted, code reason: 7-Patient Refused. 9-Not Applicable-not attempted and the patient did not perform the activity before the current illness, exacerbation or injury. 10-Not Attempted due to Environmental Limitations-(lack of equipment, weather restraints, etc.). 88-Not Attempted due to Medical Conditions or Safety Concerns. Transfers (B, C, W/C) (QC): 4 SBA Gait Right Lower Extremity: Right Weight Bearing Status RLE: Non Weight Bearing Left Lower Extremity: Left Weight Bearing Status LLE: Full Weight Bearing Summary/Comments Patient ambulated 100' with a rolling walker with SBA and went up and down 1 step using a rolling walker and cues for foot placement. Patient is NWB on the right foot, however she cannot hop on her left leg. She says Dr. Sarmiento told her she could bear some weight through her right heel. She is able to ambulate this way, but she is not compliant with non weight bearing. Treatment Rendered Treatment: Therapeutic Exercises, Gait Train, Step Train Exercise Instruction: Heel Slides Assessment/Goals Goal Time Frame: 1 Visit Understands HEP: Yes Safe Ambulation: Yes Plan Treatment Plan: Discharge PT/Family Agrees to Plan: Yes Time Time In: 1504 Time Out: 1518 Total Billed Treatment Time: 15 Billed Treatment Time 1 visit MORENITA 15' FAVIOLA MEZA PT Jun 07, 2021 15:29
--- NOTE | 2021-06-07 22:52 | OPERATIVE REPORT ---
DATE OF SERVICE: 06/07/2021 SURGEON: Tracey Kirk DPM. PREOPERATIVE DIAGNOSIS: Dehiscence of surgical wound, right foot. POSTOPERATIVE DIAGNOSIS: Dehiscence of surgical wound, right foot. PROCEDURE: Delayed closure of right foot transmetatarsal amputation. WOUND CLASS: Clean contaminated. ANESTHESIA: General. HEMOSTASIS: Pneumatic ankle tourniquet that was never inflated. INDICATIONS: This 66-year-old female who presented postoperatively weightbearing on the right lower extremity. She had difficulty staying off the foot. As a result, there subsequently with some dehiscence to the amputation site of the right lower extremity. Local wound care met with unsatisfactory results and the patient is agreeable to surgical options after risks and complications, and benefits were discussed at length. No guarantees were extended to the patient and she is willing to proceed. DESCRIPTION OF PROCEDURE: The patient was brought back to the operating table, placed in secure supine position. Appropriate timeout was performed. A pneumatic ankle tourniquet was placed on the right lower extremity over several layers of padding. The right foot was prepped and draped in normal sterile manner. This is after a general anesthetic was then induced. The right foot that was then addressed with a 15 blade freshening the skin edges to the transmetatarsal amputation incisions, which had a small vertical incision over the left first ray and then a horizontal incision extending from the third to the first metatarsal area. There is a curettage and debridement with a rongeur. Fibrotic tissue stimulating micro bleeding to the area. Next, normal saline was utilized for power irrigation. 1000 mL were utilized. After this was performed, a swab culture was taken of the wound, especially deep wound associated with the first ray area, right foot. This was sent for aerobic and anaerobic culture and sensitivities. The wound was then closed utilizing 4-0 and 3-0 Prolene in a simple interrupted type stitch. Postoperative injection consisted of 10 mL of 0.5% Marcaine injected in a local infusion to the surgical site. Postoperative dressing consisted of Betadine soaked Adaptic, sterile 4 x 4's, soft roll, ABDs to the forefoot heel and a right calf area. A posterior splint secured with Yoandy wraps. The patient tolerated the anesthesia and procedure well and was transported from the operating room to the recovery room with vital signs stable. She is to follow up in my office in six days period of time or sooner if necessary. In the meantime, she is to be nonweightbearing on the right lower extremity. She is to continue with her oral antibiotic. Job ID: [id number] DocumentID: [id number] Dictated Date: 06/07/2021 14:09:55 Research Psychologist Date: 06/07/2021 22:52:05 Dictated By: TRACEY KIRK DPM
== END 2021-06-07 16:30 | disposition home or self-care (01) ==
LOC: SDC 11:24
PROVIDERS: ATTEND Podiatrist Foot & Ankle Surgery
DX: T81.31XA Disruption of external operation (surgical) wound, not elsewhere classified, initial encounter (principal); E11.40 Type 2 diabetes mellitus with diabetic neuropathy, unspecified; E11.621 Type 2 diabetes mellitus with foot ulcer; E11.65 Type 2 diabetes mellitus with hyperglycemia; E11.22 Type 2 diabetes mellitus with diabetic chronic kidney disease; I12.9 Hypertensive chronic kidney disease with stage 1 through stage 4 chronic kidney disease, or unspecified chronic kidney disease; N18.9 Chronic kidney disease, unspecified; L97.519 Non-pressure chronic ulcer of other part of right foot with unspecified severity; I25.10 Atherosclerotic heart disease of native coronary artery without angina pectoris; I73.9 Peripheral vascular disease, unspecified; K21.9 Gastro-esophageal reflux disease without esophagitis; Z79.899 Other long term (current) drug therapy; Z79.82 Long term (current) use of aspirin; Z79.02 Long term (current) use of antithrombotics/antiplatelets; Z79.891 Long term (current) use of opiate analgesic; Z87.891 Personal history of nicotine dependence; Z79.4 Long term (current) use of insulin; Z89.431 Acquired absence of right foot
CPT/HCPCS: 82947; 87070; 87075; 87077; 87081; 87205

== ENCOUNTER 2021-06-22 09:28 | Emergency (ER) | payer MEDICARE, OTHER ==
[~2021-06-22] VITALS: Ht 165 cm; Wt 90.9 kg
[~2021-06-22 09:28] MED LIST changes: +CLIN150C2 PO
--- NOTE | 2021-06-22 10:27 | ED Abdominal Pain ---
General Chief Complaint: Abdominal/GI Problems Stated Complaint: SOB,BACK PAIN,CP Nursing Triage Note: TO ED PER W/C WITH C/O R UPEER ABD PAIN WITH RADIATION TO BACK X 1 MONTH Source of Information: Patient Exam Limitations: No Limitations History of Present Illness Date Seen by Provider: Jun 22, 2021 Time Seen by Provider: 10:16 Initial Comments Patient is a 66-year-old female who presents to the emergency department today with a chief complaint of right upper quadrant/right lower chest discomfort chronic for 1 month. Patient states it is worsened over the course of the last week. She states she had a visit with her primary care provider on of last week and she was more focused on controlling her blood sugars and addressing the pain in her belly. Patient states that nothing really seems to make the pain any better or any worse. She denies fevers or chills. No diarrhea. No urinary complaints. Patient states that the pain radiates into her back. She denies radiation to her right shoulder. She has never had any abdominal surgeries other than a tubal ligation. All other review of systems reviewed and negative except as stated. Timing/Duration: Constant, Getting Worse Severity/Quality: Moderate ("8") Location: RUQ Radiation: Back Activities at Onset: None Associated Symptoms: Back Pain, Nausea/Vomiting (nausea without vomiting) Allergies and Home Medications Allergies Coded Allergies: No Known Drug Allergies (Unverified , 06/04/21) Patient Home Medication List Home Medication List Reviewed: Yes Aspirin (Aspirin) 81 Mg Tab.chew, 81 MG PO DAILY, (Reported) Entered as Reported by: AMY TODD on 04/27/18 1329 Calcium Carbonate (Tums) 300 Mg Tab.chew, 300-600 MG PO PRN PRN for HEARTBURN, (Reported) Entered as Reported by: DAPHNEY SHIRLEY on 09/06/20 1002 Clindamycin HCl (Cleocin HCl) 150 Mg Capsule, 1 CAP PO QID Prescribed by: MARIBEL KIRK on 06/07/21 1403 Clopidogrel Bisulfate (Clopidogrel) 75 Mg Tablet, 75 MG PO DAILY, (Reported) Entered as Reported by: AMY TODD on 08/16/19 1445 Dicyclomine HCl (Dicyclomine HCl) 20 Mg Tablet, 20 MG PO Q6H PRN for abdominal pain Prescribed by: TERRI SOUSA on 06/22/21 1143 Docusate Sodium (Stool Softener) 100 Mg Capsule, 100-200 MG PO BID PRN for CONSTIPATION-1ST LINE, (Reported) Entered as Reported by: DAPHNEY SHIRLEY on 09/06/20 1002 Doxazosin Mesylate (Doxazosin Mesylate) 1 Mg Tablet, 1 MG PO HS, (Reported) Entered as Reported by: ANASTASIIA SMITH on 04/29/21 1203 Furosemide (Furosemide) 40 Mg Tablet, 40 MG PO DAILY PRN for FLUID RETENTION, (Reported) Entered as Reported by: DAPHNEY SHIRLEY on 09/06/20 1002 Gabapentin (Neurontin) 300 Mg Capsule, 900 MG PO TID, (Reported) Entered as Reported by: ANIYA ISABEL on 04/02/20 1448 Glimepiride (Glimepiride) 4 Mg Tablet, 4 MG PO BID, (Reported) Entered as Reported by: JACQUES SHANNON on 12/05/17 0950 Hydralazine HCl (Hydralazine HCl) 50 Mg Tablet, 50 MG PO TID, (Reported) Entered as Reported by: ANASTASIIA SMITH on 02/04/18 1521 Insulin Aspart (Novolog) Unknown Strength Susp, Unknown Dose SQ AC, (Reported) Entered as Reported by: PENELOPE MCPHERSON on 06/04/21 1553 Insulin Degludec (Tresiba Flextouch U-100) 100 Unit/1 Ml Insuln.pen, 44 UNITS SC HS, (Reported) Entered as Reported by: GIANLUCA STEVENSON on 08/16/19 1134 L.acidoph & Paracasei,B.lactis (Probiotic) 1 Each Capsule, 1 EACH PO DAILY, (Reported) Entered as Reported by: DAPHNEY SHIRLEY on 09/06/20 1002 Liraglutide (Victoza 3-Rigo) 0.6 Mg/0.1 Ml Pen.injctr, 1.8 MG SQ HS, (Reported) Entered as Reported by: DAPHNEY SHIRLEY on 11/27/20 0958 Metoprolol Succinate (Metoprolol Succinate) 200 Mg Tab.er.24h, 200 MG PO DAILY, (Reported) Entered as Reported by: ANASTASIIA SMITH on 02/04/18 1521 Ondansetron (Ondansetron Odt) 4 Mg Tab.rapdis, 4 MG PO Q8H PRN for nausea Prescribed by: TERRI SOUSA on 06/22/21 1143 Pantoprazole Sodium (Pantoprazole Sodium) 20 Mg Tablet.dr, 20 MG PO DAILY, (Reported) Entered as Reported by: AMY TODD on 08/16/19 1445 Pnv No.122/Iron/Folic Acid ( Multi Tablet) 1 Each Tablet, 1 EACH PO DAILY, (Reported) Entered as Reported by: ANASTASIIA SMITH on 04/29/21 1209 Tramadol HCl (Tramadol HCl) 50 Mg Tablet, 50 MG PO TID PRN for PAIN-MODERATE (5- 7), (Reported) Entered as Reported by: BRYSON FELTON on 04/26/16 1128 Review of Systems Review of Systems Constitutional: see HPI EENTM: No Symptoms Reported Respiratory: No Symptoms Reported Cardiovascular: No Symptoms Reported Gastrointestinal: Abdominal Pain (Right upper quadrant), Nausea Genitourinary: No Symptoms Reported Musculoskeletal: no symptoms reported Skin: no symptoms reported Psychiatric/Neurological: No Symptoms Reported All Other Systems Reviewed Negative Unless Noted: Yes Past Rbbuiqw-Cpfhio-Tdcxdi Hx Patient Social History Tobacco Use?: No Use of E-Cig and/or Vaping dev: No Substance use?: No Alcohol Use?: No Pt feels they are or have been: No Immunizations Up To Date Tetanus Booster (TDap): Unknown PED Vaccines UTD: No First/Initial COVID19 Vaccinat: PT REFUSES Second COVID19 Vaccination Ramesh: PT REFUSES Seasonal Allergies Seasonal Allergies: No Past Medical History Surgery/Hospitalization HX: TOE AMPUATION R SIDE. 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 Sexually Transmitted Disease: No HIV/AIDS: No Genitourinary: Yes UTI-Chronic Gastrointestinal: Yes Gastroesophageal Reflux Musculoskeletal: Yes Amputee, Fibromyalgia Endocrine: Yes Diabetes, Insulin dep HEENT: No (GLASSES) Loss of Vision: Denies Hearing Impairment: Denies Cancer: No Psychosocial: No Integumentary: Yes (diabetic ulcer right foot) Blood Disorders: No Adverse Reaction/Blood Tranf: No (N/A) Family Medical History Cardiovascular disease 19 MOTHER, G8 BROTHER G8 BROTHER Completed stroke 19 MOTHER, Diabetes mellitus 19 FATHER, 19 MOTHER, G8 BROTHER G8 SISTER FH: brain tumor FH: breast cancer 19 MOTHER, FH: lung cancer FHx: peripheral neuropathy Hypertension 19 FATHER, Lung c 19 FATHER, Myocardial infarction 19 MOTHER, Neuro No Pertinent Family Hx Physical Exam Vital Signs Vital Signs - First Documented 06/22/21 09:28 Temp 36.1 Pulse 72 Resp 18 B/P (MAP) 131/54 (79) Pulse Ox 97 O2 Delivery Room Air Capillary Refill : Less Than 3 Seconds Height/Weight/BMI Height: 5'5.50" Weight: 195lbs. 0.0oz. [id number]; 33.00 BMI Method:Stated General Appearance: WD/WN, no apparent distress HEENT: PERRL/EOMI Neck: supple Respiratory: lungs clear, normal breath sounds, no respiratory distress, no accessory muscle use Cardiovascular: regular rate, rhythm, other (Loud systolic ejection murmur heard throughout the precordium (3/6)) Gastrointestinal: soft, guarding (Equivocal Arredondo's), tenderness (Right upper quadrant) Extremities: non-tender, normal inspection, no pedal edema, no calf tenderness Neurologic/Psychiatric: alert, normal mood/affect, oriented x 3 Skin: normal color, warm/dry Progress/Results/Core Measures Results/Orders Lab Results Laboratory Tests Test 06/22/21 09:42 Range/Units White Blood Count 8.4 4.3-11.0 10^3/uL Red Blood Count 3.54 L 3.80-5.11 10^6/uL Hemoglobin 10.3 L 11.5-16.0 g/dL Hematocrit 32 L 35-52 % Mean Corpuscular Volume 91 80-99 fL Mean Corpuscular Hemoglobin 29 25-34 pg Mean Corpuscular Hemoglobin Concent 32 32-36 g/dL Red Cell Distribution Width 13.5 10.0-14.5 % Platelet Count 175 130-400 10^3/uL Mean Platelet Volume 9.3 9.0-12.2 fL Immature Granulocyte % (Auto) 1 % Neutrophils (%) (Auto) 68 42-75 % Lymphocytes (%) (Auto) 25 12-44 % Monocytes (%) (Auto) 5 0-12 % Eosinophils (%) (Auto) 1 0-10 % Basophils (%) (Auto) 1 0-10 % Neutrophils # (Auto) 5.7 1.8-7.8 10^3/uL Lymphocytes # (Auto) 2.1 1.0-4.0 10^3/uL Monocytes # (Auto) 0.4 0.0-1.0 10^3/uL Eosinophils # (Auto) 0.1 0.0-0.3 10^3/uL Basophils # (Auto) 0.0 0.0-0.1 10^3/uL Immature Granulocyte # (Auto) 0.0 0.0-0.1 10^3/uL Sodium Level 137 135-145 MMOL/L Potassium Level 4.0 3.6-5.0 MMOL/L Chloride Level 104 98-107 MMOL/L Carbon Dioxide Level 18 L 21-32 MMOL/L Anion Gap 15 H 5-14 MMOL/L Blood Urea Nitrogen 23 H 7-18 MG/DL Creatinine 1.06 0.60-1.30 MG/DL Estimat Glomerular Filtration Rate 52 BUN/Creatinine Ratio 22 Glucose Level 201 H 70-105 MG/DL Calcium Level 10.2 H 8.5-10.1 MG/DL Corrected Calcium 10.4 H 8.5-10.1 MG/DL Total Bilirubin 0.2 0.1-1.0 MG/DL Aspartate Amino Transf (AST/SGOT) 21 5-34 U/L Alanine Aminotransferase (ALT/SGPT) 30 0-55 U/L Alkaline Phosphatase 90 40-136 U/L Total Protein 6.9 6.4-8.2 GM/DL Albumin 3.7 3.2-4.5 GM/DL Lipase 74 8-78 U/L My Orders Orders - TERRI SOUSA MD Ed Iv/Invasive Line Start (06/22/21 10:25) Cbc With Automated Diff (06/22/21 10:25) Comprehensive Metabolic Panel (06/22/21 10:25) Lipase (06/22/21 10:25) Chest 1 View, Ap/Pa Only (06/22/21 10:25) Ondansetron Injection (Zofran Injectio (06/22/21 10:30) Medications Given in ED Vital Signs/I&O 06/22/21 06/22/21 09:28 11:57 Temp 36.1 Pulse 72 66 Resp 18 18 B/P (MAP) 131/54 (79) 151/90 Pulse Ox 97 O2 Delivery Room Air Blood Pressure Mean: 79 Progress Progress Note : Time: 11:38 Progress Note Patient states she has had a little relief with the Bentyl. Labs have been reviewed, within normal limits no elevation of liver functions/bilirubin, normal white blood cell count. Vital signs have been stable. After review of the patient's medical record she had a nuc med study of the gallbladder 3 or 4 years ago that showed a depressed ejection fraction. I suspected that this has further declined in the last 3 or 4 years. Will order an outpatient gallbladder ultrasound and refer her to Dr. Romero. Sending prescriptions for Bentyl and Zofran to her pharmacy. She can resume taking her tramadol on an as-needed basis. I have given the patient good return precautions. She verbalized understanding. All questions were sought and answered. Patient is stable for discharge. Diagnostic Imaging Diagonstic Imaging: Xray Plain Films/CT/US/NM/MRI: chest Comments [facility] [place] NAME: BRYSON [facility] REC#: [id number] PT STATUS: REG ER : 1955 PHYSICIAN: TERRI SOUSA MD ADMIT DATE: 06/22/21/ER Draft Date of Exam:06/22/21 CHEST 1 VIEW, AP/PA ONLY INDICATION: Right upper quadrant pain, nausea. EXAMINATION: Chest, 06/22/2021. COMPARISON: 09/06/2020. FINDINGS: The heart and pulmonary vasculature appear normal. The lungs and pleural spaces are clear. No infiltrates, effusions, or pneumothorax. IMPRESSION: 1. No acute cardiopulmonary process. Dictated on workstation # [id number] Dict: 06/22/21 1115 Trans: 06/22/21 1124 [id number] Interpreted by: TERRENCE GILL MD Electronically signed by: Departure Impression Primary Impression: Abdominal pain Qualified Codes: R10.11 - Right upper quadrant pain Additional Impression: Biliary colic Disposition: HOME, SELF-CARE Condition: Stable (ERASED) Departure-Patient Inst. Decision time for Depature: 11:40 Referrals: [facility] [place] (PCP/Family) Primary Care Physician NIKHIL ROMERO DO Patient Instructions: Gallbladder Diet Add. Discharge Instructions: Drink plenty of fluids to stay well-hydrated. Take the Bentyl every 6 hours as needed, 30 minutes before eating, as needed for pain. Zofran for nausea. Tramadol as needed for more intense pain. Return to the emergency department if you have any fever, worsening pain, vomiting or other emergent concerning symptoms. I have given you an outpatient order for gallbladder ultrasound. Please follow- up with either Dr. Romero or [facility] after this ultrasound to see about getting her gallbladder removed. Scripts Ondansetron (Ondansetron Odt) 4 Mg Tab.rapdis 4 MG PO Q8H PRN for nausea, #20 TAB Prov: TERRI SOUSA MD 06/22/21 Dicyclomine HCl (Dicyclomine HCl) 20 Mg Tablet 20 MG PO Q6H PRN for abdominal pain, #60 TAB Prov: TERRI SOUSA MD 06/22/21 Copy Copies To 1: NIKHIL ROMERO DO Copies To 2: ISMAEL FISCHER DO TERRI SOUSA MD Jun 22, 2021 10:27
[2021-06-22] MEDS ORDERED: ONDANSETRON 4 MG/2 ML (SDV) Z0FRAN IVP ONE (10:30)
[2021-06-22 10:37] LABS: BASOPHILS % (AUTO) 1 % (0-10); EOSINOPHILS # (AUTO) 0.1 10^3/uL (0.0-0.3); EOSINOPHILS % (AUTO) 1 % (0-10); HEMATOCRIT 32 % (35-52); HEMOGLOBIN 10.3 g/dL (11.5-16.0); LYMPHOCYTES # (AUTO) 2.1 10^3/uL (1.0-4.0); LYMPHOCYTES % (AUTO) 25 % (12-44); MEAN CORPUSCULAR HEMOGLOBIN 29 pg (25-34); MEAN CORPUSCULAR HGB CONC 32 g/dL (32-36); MEAN CORPUSCULAR VOLUME 91 fL (80-99); MEAN PLATELET VOLUME 9.3 fL (9.0-12.2); MONOCYTES # (AUTO) 0.4 10^3/uL (0.0-1.0); MONOCYTES % (AUTO) 5 % (0-12); NEUTROPHILS # (AUTO) 5.7 10^3/uL (1.8-7.8); NEUTROPHILS % (AUTO) 68 % (42-75); PLATELET COUNT 175 10^3/uL (130-400); WHITE BLOOD COUNT 8.4 10^3/uL (4.3-11.0)
[2021-06-22 10:42] LABS: ALBUMIN 3.7 GM/DL (3.2-4.5)
[2021-06-22 10:44] LABS: CALCIUM 10.2 MG/DL (8.5-10.1)
[2021-06-22 10:45] LABS: TOTAL PROTEIN 6.9 GM/DL (6.4-8.2)
[2021-06-22 10:47] LABS: BILIRUBIN,TOTAL 0.2 MG/DL (0.1-1.0)
[2021-06-22 10:49] LABS: CREATININE SERUM 1.06 MG/DL (0.60-1.30)
--- NOTE | 2021-06-22 11:24 | Diagnostic Imaging Report ---
INDICATION: Right upper quadrant pain, nausea. EXAMINATION: Chest, 06/22/2021. COMPARISON: 09/06/2020. FINDINGS: The heart and pulmonary vasculature appear normal. The lungs and pleural spaces are clear. No infiltrates, effusions, or pneumothorax. IMPRESSION: 1. No acute cardiopulmonary process. Dictated by: Dictated on workstation # [id number]
[2021-06-22] MEDS ORDERED: DICY20TA10 PO (11:43)
[2021-06-22] MEDS ORDERED: ONDA4TAB11 PO (11:43)
[2021-06-22 11:57] VITALS: BP 151/90
== END 2021-06-22 11:57 | disposition home or self-care (01) ==
LOC: EDUNIT# 09:28 → ER 09:30
DX: K80.50 Calculus of bile duct without cholangitis or cholecystitis without obstruction (principal); I10 Essential (primary) hypertension; K21.9 Gastro-esophageal reflux disease without esophagitis; E11.9 Type 2 diabetes mellitus without complications; Z79.4 Long term (current) use of insulin; Z79.899 Other long term (current) drug therapy; Z79.82 Long term (current) use of aspirin; Z79.01 Long term (current) use of anticoagulants
CPT/HCPCS: 36415; 71045; 80053; 83690; 85025

== ENCOUNTER → 2021-06-26 | Outpatient (CLI) | payer MEDICARE, OTHER ==
[~2021-06-26] MED LIST changes: +DICY20TA10 PO; +ONDA4TAB11 PO
== END ==
LOC: WOUNDCARE 08:39
PROVIDERS: ATTEND Surgery
DX: E11.621 Type 2 diabetes mellitus with foot ulcer (principal); I70.234 Atherosclerosis of native arteries of right leg with ulceration of heel and midfoot; L97.412 Non-pressure chronic ulcer of right heel and midfoot with fat layer exposed; T81.31XA Disruption of external operation (surgical) wound, not elsewhere classified, initial encounter; E11.65 Type 2 diabetes mellitus with hyperglycemia
CPT/HCPCS: 83036; A6260; G0463; 36415; 99214

== ENCOUNTER → 2021-07-03 | Outpatient (CLI) | payer MEDICARE, OTHER ==
[~2021-07-03] MED LIST changes: +INSU100I53 SQ
== END ==
LOC: WOUNDCARE 10:01
PROVIDERS: ATTEND Family Medicine
DX: E11.52 Type 2 diabetes mellitus with diabetic peripheral angiopathy with gangrene (principal); E11.621 Type 2 diabetes mellitus with foot ulcer; E11.65 Type 2 diabetes mellitus with hyperglycemia; I70.261 Atherosclerosis of native arteries of extremities with gangrene, right leg; L97.412 Non-pressure chronic ulcer of right heel and midfoot with fat layer exposed; T81.31XA Disruption of external operation (surgical) wound, not elsewhere classified, initial encounter
CPT/HCPCS: 99213

== ENCOUNTER 2021-07-05 11:00 | Day surgery (SDC) | payer OTHER, MEDICARE ==
[~2021-07-05] VITALS: Ht 165 cm; Wt 91.0 kg
[2021-07-05] VITALS (9 sets, daily range): BP systolic 152–182; BP diastolic 68–97
[2021-07-05 09:58] LABS: HEMATOCRIT 33 % (35-52); HEMOGLOBIN 10.4 g/dL (11.5-16.0); MEAN CORPUSCULAR HEMOGLOBIN 29 pg (25-34); MEAN CORPUSCULAR HGB CONC 31 g/dL (32-36); MEAN CORPUSCULAR VOLUME 93 fL (80-99); MEAN PLATELET VOLUME 9.6 fL (9.0-12.2); PLATELET COUNT 221 10^3/uL (130-400); WHITE BLOOD COUNT 7.9 10^3/uL (4.3-11.0)
[2021-07-05 10:04] LABS: PROTHROMBIN TIME PATIENT 13.5 SEC (12.2-14.7)
[2021-07-05 10:10] LABS: ALBUMIN 3.8 GM/DL (3.2-4.5); BILIRUBIN,TOTAL 0.3 MG/DL (0.1-1.0); CALCIUM 9.7 MG/DL (8.5-10.1); CREATININE SERUM 1.01 MG/DL (0.60-1.30); TOTAL PROTEIN 7.3 GM/DL (6.4-8.2)
--- NOTE | 2021-07-05 10:11 | Diagnostic Imaging Report ---
INDICATION: Pre-heart catheterization. TIME OF EXAM: 9:59 AM CORRELATION is made with prior chest from 06/22/2021. The heart size is normal. The pulmonary vascularity is unremarkable. The lungs are clear. No infiltrate, effusion or pneumothorax is detected. IMPRESSION: No acute cardiopulmonary process is detected. Dictated by: Dictated on workstation # [id number]
[~2021-07-05 11:00] MED LIST changes: +CLIN-144 PO; -CLIN300C12 PO; +HEParin (CATH LAB) 2,000 ML IV ONE; +LIDOCAINE 1% INJ 20 ML 20 ML VIAL ONE; +NS IV 1000 ML 1,000 ML IV SCH; +NS IV 1000 ML 1,000 ML ONE
[2021-07-05] MEDS ORDERED: MIDAZOLAM 5 MG/5 ML (VERSED) VIAL ONE (12:01)
[2021-07-05] MEDS ORDERED: fentaNYL INJ 100 MCG/2 ML AMP ONE (12:01)
--- NOTE | 2021-07-05 12:13 | Conscious Sedation/ASA ---
Conscious Sedation Pre-Proced Time 12:13 ASA Score 3 For ASA 3 and 4: Consider anesthesia and medical clearance. Also, for patients with a history of failed moderate sedation consider anesthesia. Airway Lungs Heart ASA score ASA 1: a normal healthy patient ASA 2: a patient with a mild systemic disease (mid diabetes, controlled hypertension, obesity x ASA 3: a patient with a severe systemic disease that limits activity (angina, COPD, prior Myocardial infarction) ASA 4: a patient with an incapacitating disease that is a constant threat to life (CHF, renal failure) ASA 5: a moribund patient not expected to survive 24 hrs. (ruptured aneurysm) ASA 6: a declared brain- patient whose organs are being harvested. For emergent operations, add the letter E after the classification Mallampati Classification Grade 3 Sedation Plan Analgesia, Amnesia, Plan communicated to team members, Discussed options with patient/fam, Discussed risks with patient/fam The patient is an appropriate candidate to undergo the planned procedure, sedation, and anesthesia. The patient immediately re-assessed prior to indication. CARLOS ELLIS MD Jul 05, 2021 12:13
--- NOTE | 2021-07-05 12:44 | Discharge Inst-Post CATH ---
Discharge Inst-CATH/EP Problems Reviewed?: Yes Post Cardiac Cath/EP D/C Inst Follow Up/Plan Appointment with Dr. Kohli's office in 2 to 4 weeks <b>CARDIAC CATH/EP PROCEDURE DISCHARGE INSTRUCTIONS</b> ACTIVITY * Go Home directly and rest. * Limit activity of the leg (or wrist if it was used) for 7 days including aerobics, swimming, jogging, bicycling, etc. * Restrict stair-climbing for 7 days if possible, if not, climb up with your non-cath leg, then bring together on the same step. * Avoid lifting, pushing, pulling or excessive movement of the affected extremity for 7 days. * Customary sexual activity may be resumed after 2 days-use caution not to use a position that strains or causes pain to the affected extremity. * No driving for 24 hours. * NO SMOKING. * Avoid straining for bowel movements for 7 days. * Gentle walking on level ground is allowed. * Returning to work will depend on the type of procedure and the results. Your doctor will discuss this with you. CALL YOUR DOCTOR FOR ANY OF THE FOLLOWING: *If bleeding from the puncture site occurs- Apply gentle pressure to site with clean cloth and call your doctor or EMS. * If a knot or lump forms under the skin, increases in size, or causes pain. * If bruising appears to be worsening or moving further down your leg instead of disappearing. * Temperature above 101 F. CARE OF YOUR GROIN INCISION; * Bruising or purple discoloration of the skin near the puncture site is common. * You may shower only, no bathtub bathing for 5 days. Be careful to avoid slipping as your leg may feel stiff. * If a closure device was used on your femoral artery, please see the attached guide regarding care of the device and your leg. * Leave dressing on FOR 24 hours. CARE OF YOUR WRIST INCISION; * Bruising or purple discoloration of the skin near the puncture site is common. * You may shower. * DO NOT submerge wrist. * Leave dressing on FOR 24 hours. CARLOS ELLIS MD Jul 05, 2021 12:44
[2021-07-05] MEDS ORDERED: PATIENT MAY USE OWN MEDS, ALL PO SCH (12:45)
[2021-07-05] MEDS ORDERED: NS IV 1000 ML 1,000 ML IV SCH (12:45)
--- NOTE | 2021-07-05 12:51 | Peripheral Report ---
Peripheral Report Physician (s)/Choir Teacher (s) Physician CARLOS ELLIS MD Pre-Procedure Diagnosis Pre-Procedure Diagnosis: Peripheral arterial disease Post-Procedure Note Procedure Start Date: Jul 05, 2021 Name of Procedure: Abdominal aortogram Bilateral lower extremity runoff Third order Additional imaging x2 Findings/Procedure Note PROCEDURE NOTE: 66-year-old lady with peripheral arterial disease, extensive disease, had amputation of her toes on the right leg, referred for peripheral angiogram due to nonhealing wound. After explaining the procedure to the patient, all pros and cons were explained, all questions were answered. The patient signed the consent and then she was placed on the cardiac catheterization laboratory. The patient was placed on the cardiac catheterization laboratory. Groin was prepped SL fashion local anesthesia was used. Sheath placed in the left femoral artery, runoff to the left leg was done then DSA imaging was done to the left leg at the level of the trifurcation and the level of the foot. Rim catheter was advanced to the bifurcation and then Storq wire was advanced and exchanged the rim using straight catheter down to the tibial artery, DSA imaging on the right leg was done at the tibioperoneal trunk and at the level of the foot then the catheter was pulled back to the popliteal artery and repeat D SA imaging was done. Then the catheter was pulled back to the common femoral artery and runoff to the right leg was done then the catheter was removed and a pigtail catheter was advanced to the abdominal aorta and abdominal aortogram was done. At the end of the procedure sheath was removed and closure device deployed. FINDINGS: Abdominal aortogram: Mild atherosclerotic disease in the abdominal aorta, no dissection or aneurysm, normal bilateral renal arteries, SMA and TETE. No significant obstructive disease, normal abdominal bifurcation and iliac arteries. Left lower extremity: Mild to moderate disease in the SFA, common femoral artery, tibioperoneal trunk has mild to moderate disease, occluded anterior tibial artery, there is good flow in the posterior tibial artery and peroneal artery down to the foot Right lower extremity: Mild to moderate disease in the right SFA and popliteal artery, nonobstructive disease. The anterior tibial artery is occluded and very few collaterals noted. The tibioperoneal trunk has moderate lesion at the midportion does not appear to be obstructive disease and there is excellent flow in the posterior tibial artery and peroneal artery. CONCLUSIONS: 1. Total occlusion of the anterior tibial artery on the right, very few collaterals there is no reconstruction of that artery. Otherwise on the right leg there is excellent flow down to the foot with mild to moderate disease noted at multiple segment 2. Total occlusion of the anterior tibial artery on the left side. Mild to moderate disease on the left lower extremity down to the foot with good flow distally. 3. Mild atherosclerotic plaques in the abdominal aorta, no dissection or aneurysm DISCUSSION AND RECOMMENDATIONS: Continue on medical therapy. No intervention is recommended at this point Anesthesia Type: Conscious Sedation Estimated blood loss (mL): 25 ml Contrast Amount: 45 ml Total Radiation Dose: 86 mGy Post-Procedure Diagnosis Post-operative diagnosis: Nonhealing foot ulcer Peripheral arterial disease Hypertension Hyperlipidemia CARLOS ELLIS MD Jul 05, 2021 12:51
[2021-07-05] MEDS ORDERED: meTOprolol SUCCINATE 100 MG (TOPROL XL) TAB PO SCH (14:15)
[2021-07-05] MEDS ORDERED: hydrALAZINE (APRESOLINE) 25 MG TAB PO SCH (14:15)
== END 2021-07-05 17:25 | disposition home or self-care (01) ==
LOC: CATH 11:00 → ICU 12:58 → CATH 17:25
PROVIDERS: ATTEND Internal Medicine Cardiovascular Disease
DX: I70.92 Chronic total occlusion of artery of the extremities (principal); E11.621 Type 2 diabetes mellitus with foot ulcer; E11.40 Type 2 diabetes mellitus with diabetic neuropathy, unspecified; I70.0 Atherosclerosis of aorta; I10 Essential (primary) hypertension; I73.9 Peripheral vascular disease, unspecified; I25.10 Atherosclerotic heart disease of native coronary artery without angina pectoris; I16.0 Hypertensive urgency; I65.23 Occlusion and stenosis of bilateral carotid arteries; I73.89 Other specified peripheral vascular diseases; I34.0 Nonrheumatic mitral (valve) insufficiency; E78.5 Hyperlipidemia, unspecified; L97.509 Non-pressure chronic ulcer of other part of unspecified foot with unspecified severity; Z79.82 Long term (current) use of aspirin; Z79.899 Other long term (current) drug therapy; Z87.891 Personal history of nicotine dependence; Z79.02 Long term (current) use of antithrombotics/antiplatelets; Z79.84 Long term (current) use of oral hypoglycemic drugs; Z79.4 Long term (current) use of insulin; Z83.3 Family history of diabetes mellitus; Z80.9 Family history of malignant neoplasm, unspecified
CPT/HCPCS: 36200; 36247; 71045; 75625; 75716; 80053; 80061; 85027; 85610; 85730; 87081; C1760; C1769; C1887; C1894; 36415

== ENCOUNTER → 2021-07-10 | Outpatient (CLI) | payer OTHER, MEDICARE ==
[~2021-07-10] MED LIST changes: -HEParin (CATH LAB) 2,000 ML IV ONE; -LIDOCAINE 1% INJ 20 ML 20 ML VIAL ONE; -NS IV 1000 ML 1,000 ML IV SCH; -NS IV 1000 ML 1,000 ML ONE
--- NOTE | 2021-07-10 09:43 | Diagnostic Imaging Report ---
PROCEDURE: US Gallbladder. INDICATION: Right upper quadrant abdominal pain TECHNIQUE: Multiple grayscale sonographic images were obtained of the right upper quadrant of the abdomen. CORRELATION STUDY: 02/19/2017. CT abdomen pelvis 06/15/2020 FINDINGS: LIVER: There is uniform echotexture within the visualized portions of the liver. The main portal vein is patent and with normal direction of flow. Liver length at 18 cm. GALLBLADDER: The gallbladder demonstrates no definitive shadowing gallstones, abnormal gallbladder wall thickening or pericholecystic fluid. COMMON BILE DUCT: Nondilated at 0.4 cm. AORTA/IVC: Largely obscured and not well visualized. PANCREAS: Largely obscured and not well visualized. RIGHT KIDNEY: The right kidney is not well visualized, largely obscured by overlying bowel gas. Measures approximately 12.4 x 6.3 cm. No overt hydronephrosis. OTHER: None. IMPRESSION: 1. Negative for gallstones or bile duct dilatation. Remainder of the examination is compromised with a large amount of overlying bowel gas. Dictated by: Dictated on workstation # [id number]
== END ==
LOC: RAD 07:45
PROVIDERS: ATTEND Surgery
DX: R10.11 Right upper quadrant pain (principal)
CPT/HCPCS: 76705

== ENCOUNTER → 2021-07-10 | Outpatient (CLI) | payer MEDICARE, OTHER | LOC: WOUNDCARE 09:35 | PROVIDERS: ATTEND Family Medicine | DX: E11.621 Type 2 diabetes mellitus with foot ulcer (principal); E11.52 Type 2 diabetes mellitus with diabetic peripheral angiopathy with gangrene; E11.65 Type 2 diabetes mellitus with hyperglycemia; T81.31XA Disruption of external operation (surgical) wound, not elsewhere classified, initial encounter; L97.412 Non-pressure chronic ulcer of right heel and midfoot with fat layer exposed; I70.234 Atherosclerosis of native arteries of right leg with ulceration of heel and midfoot | CPT/HCPCS: 11042; A6197; G0463 ==

== ENCOUNTER → 2021-07-15 | Outpatient (CLI) | payer MEDICARE, OTHER ==
[~2021-07-15] MED LIST changes: +CATHETER FLUSH 10 ML SYR IV PRN
--- NOTE | 2021-07-15 14:18 | Diagnostic Imaging Report ---
Indication: Right upper quadrant pain EXAMINATION: HIDA scan from 07/15/2021 FINDINGS: After uneventful administration 4.8 mCi of mebrofenin intravenously subsequent imaging was performed with prompt homogeneous uptake seen throughout the liver. The gallbladder and small bowel loops seen within 60 minutes. Subsequent administration of 8 ounces of oral images were given with subsequent imaging performed. Ejection fraction is calculated at 23%. IMPRESSION: 1. No obstructive process. 2. Low ejection fraction. This could be due to chronic cholecystitis versus gallbladder dyskinesia. Correlate with patient's symptoms. Dictated by: Dictated on workstation # [id number]
== END ==
LOC: RAD 10:00
PROVIDERS: ATTEND Surgery
DX: R10.11 Right upper quadrant pain (principal)
CPT/HCPCS: 78227; A9537

== ENCOUNTER → 2021-07-17 | Outpatient (CLI) | payer MEDICARE, OTHER ==
[~2021-07-17] MED LIST changes: -CATHETER FLUSH 10 ML SYR IV PRN
== END ==
LOC: WOUNDCARE 09:52
PROVIDERS: ATTEND Family Medicine
DX: E11.621 Type 2 diabetes mellitus with foot ulcer (principal); E11.52 Type 2 diabetes mellitus with diabetic peripheral angiopathy with gangrene; E11.65 Type 2 diabetes mellitus with hyperglycemia; L97.412 Non-pressure chronic ulcer of right heel and midfoot with fat layer exposed; L03.115 Cellulitis of right lower limb; I70.234 Atherosclerosis of native arteries of right leg with ulceration of heel and midfoot; T81.31XA Disruption of external operation (surgical) wound, not elsewhere classified, initial encounter
CPT/HCPCS: 11042; G0463; L4360

== ENCOUNTER → 2021-07-24 | Outpatient (CLI) | payer MEDICARE, OTHER | LOC: WOUNDCARE 09:48 | PROVIDERS: ATTEND Family Medicine | DX: E11.621 Type 2 diabetes mellitus with foot ulcer (principal); I70.234 Atherosclerosis of native arteries of right leg with ulceration of heel and midfoot; L97.412 Non-pressure chronic ulcer of right heel and midfoot with fat layer exposed; T81.31XA Disruption of external operation (surgical) wound, not elsewhere classified, initial encounter; E11.65 Type 2 diabetes mellitus with hyperglycemia; E11.52 Type 2 diabetes mellitus with diabetic peripheral angiopathy with gangrene | CPT/HCPCS: 15275; G0463 ==

== ENCOUNTER → 2021-07-31 | Outpatient (CLI) | payer MEDICARE, OTHER ==
[~2021-07-31] MED LIST changes: +CYCL10TA25 PO; -CYCL10TA9 PO; +DICY20TA PO; -DICY20TA10 PO
== END ==
LOC: WOUNDCARE 09:56
PROVIDERS: ATTEND Family Medicine
DX: E11.621 Type 2 diabetes mellitus with foot ulcer (principal); E11.52 Type 2 diabetes mellitus with diabetic peripheral angiopathy with gangrene; L97.412 Non-pressure chronic ulcer of right heel and midfoot with fat layer exposed; I70.261 Atherosclerosis of native arteries of extremities with gangrene, right leg; T81.31XA Disruption of external operation (surgical) wound, not elsewhere classified, initial encounter; E11.65 Type 2 diabetes mellitus with hyperglycemia
CPT/HCPCS: 11042; 87070; 87077; 87181; 87186; 87205; G0463

== ENCOUNTER → 2021-08-07 | Outpatient (CLI) | payer MEDICARE, OTHER | LOC: WOUNDCARE 09:49 | PROVIDERS: ATTEND Family Medicine | DX: E11.621 Type 2 diabetes mellitus with foot ulcer (principal); I70.234 Atherosclerosis of native arteries of right leg with ulceration of heel and midfoot; L97.412 Non-pressure chronic ulcer of right heel and midfoot with fat layer exposed; T81.31XA Disruption of external operation (surgical) wound, not elsewhere classified, initial encounter; E11.65 Type 2 diabetes mellitus with hyperglycemia; E11.52 Type 2 diabetes mellitus with diabetic peripheral angiopathy with gangrene | CPT/HCPCS: 11042; G0463 ==

== ENCOUNTER 2021-08-14 05:34 | Outpatient (CLI) | payer MEDICARE, OTHER ==
[~2021-08-14] VITALS: Ht 165.1 cm; Wt 90.9 kg
[~2021-08-14 05:34] MED LIST changes: -INSU100V5 SQ
[2021-08-14] MEDS ORDERED: INSU100V5 SQ (11:05)
== END 2021-08-14 11:42 | disposition home or self-care (01) ==
LOC: PREOP 05:34
PROVIDERS: ATTEND Surgery
DX: Z01.818 Encounter for other preprocedural examination (principal)

== ENCOUNTER → 2021-08-14 | Outpatient (CLI) | payer MEDICARE, OTHER ==
[~2021-08-14] MED LIST changes: +INSU100V5 SQ
== END ==
LOC: WOUNDCARE 09:52
PROVIDERS: ATTEND Family Medicine
DX: E11.621 Type 2 diabetes mellitus with foot ulcer (principal); I70.234 Atherosclerosis of native arteries of right leg with ulceration of heel and midfoot; L97.412 Non-pressure chronic ulcer of right heel and midfoot with fat layer exposed; T81.31XA Disruption of external operation (surgical) wound, not elsewhere classified, initial encounter; E11.65 Type 2 diabetes mellitus with hyperglycemia; E11.52 Type 2 diabetes mellitus with diabetic peripheral angiopathy with gangrene
CPT/HCPCS: 11042; G0463

== ENCOUNTER 2021-08-21 05:59 | Day surgery (SDC) | payer MEDICARE, OTHER ==
[2021-08-21] VITALS (11 sets, daily range): BP systolic 135–173; BP diastolic 59–79
[~2021-08-21] VITALS: Ht 165 cm; Wt 90.9 kg
[~2021-08-21 05:59] MED LIST changes: +INSU100V5 SQ
[2021-08-21] MEDS ORDERED: ceFAZolin 2 GM IV Premixed 50 ML IV ONE (06:15)
[2021-08-21] MEDS: LACTATED RINGERS 1,000 ML IV PRN ×2 (06:41→10:52)
[2021-08-21] MEDS ORDERED: MIDAZOLAM 2 MG/2 ML (VERSED) VIAL ONE (07:01)
[2021-08-21] MEDS ORDERED: ONDANSETRON 4 MG/2 ML (SDV) Z0FRAN ONE ×2 (07:01→10:44)
[2021-08-21] MEDS ORDERED: proPOfol 200 MG/20 ML (DIPRIVAN) VIAL IV ONE (07:01)
[2021-08-21] MEDS ORDERED: LIDOCAINE PF 2% 5 ML (XYLOCAINE) VIAL ONE (07:01)
[2021-08-21] MEDS ORDERED: fentaNYL INJ 100 MCG/2 ML AMP ONE (07:01)
[2021-08-21] MEDS ORDERED: SEVOFLURANE (ULTANE) 15 ML INHAL SOLN ONE ×2 (07:01→08:32)
[2021-08-21] MEDS ORDERED: LIDOCAINE/EPI 1%-1:100,000 (XYLOCAINE) 20ML ONE (07:30)
--- NOTE | 2021-08-21 08:00 | Progress Note-Pre Operative ---
Pre-Operative Progress Note H&P Reviewed The H&P was reviewed, patient examined and no changes noted. Date Seen by Provider: Aug 21, 2021 Time Seen by Provider: 07:51 Date H&P Reviewed: Aug 21, 2021 Time H&P Reviewed: 07:51 Pre-Operative Diagnosis: ruq abd pain, biliary dyskinesia NIKHIL ROMERO DO Aug 21, 2021 08:00
[2021-08-21] MEDS ORDERED: ROCURONIUM 50 MG/5 ML (ZEMURON) VIAL IV ONE (08:31)
[2021-08-21] MEDS ORDERED: morphine INJ 10 MG/ML 1ML (SYR OR VIAL) ONE (08:51)
[2021-08-21] MEDS ORDERED: NEOSTIGMINE 3 MG/3 ML VIAL ONE (09:04)
[2021-08-21] MEDS ORDERED: GLYCOPYRROLATE 0.2 MG/ML (ROBINUL) 2 ML VIAL ONE (09:04)
[2021-08-21] MEDS ORDERED: ACHD5005 PO (09:05)
--- NOTE | 2021-08-21 09:09 | Discharge Inst-Simple/Standard ---
Discharge Inst-Standard Discharge Medications New, Converted or Re-Newed RX: Transmitted to Pharmacy Patient Instructions/Follow Up Plan of Care/Instructions/FU: Los 2 weeks Restart plavix in 3 days. Activity as Tolerated: No Discharge Diet: Regular Diet Other Inst to Patient Follow up Appt: Make appointment for 2 weeks. Restart plavix in 3 days. Instructions: No lifting greater than 10 pounds. No strenuous activity. May shower in 24 hours, no tub bath or soaking. Use incentive spirometer at home as directed. No Smoking Skin/Wound Care: You have special glue over incision, it will fall off on it's own. Symptoms to Report: Appetite Changes, Extremity Discoloration, Numbness/Tingling, Swelling Increased, Bleeding Excessive, Eyesight Changes, Pain Increased, Urine Color Change, Constipation(Persistent), Fever over 101 degree F, Pain/Pressure in chest, Urinating Difficulty, Cough Up/Vomit Blood, Heart Beat Irreg/Pounding, Pain/Pressure in jaw, Vaginal Bleeding Increase, Cramps in feet or legs, Lightheadedness, Pain/Pressure in shoulder, Diarrhea(Persistent), Memory Changes Suddenly, Questions/Concerns, Weight gain consecutive days, Dizziness/Fainting, Nausea/Vomiting, Shortness of Breath, Weight gain over 2 pounds. If eyes or skin turn yellow notify physician. If questions or concerns contact your physician Or seek help at emergency department. NIKHIL ROMERO DO Aug 21, 2021 09:09
--- NOTE | 2021-08-21 09:12 | Progress Note-Post Operative ---
Post-Operative Progess Note Surgeon (s)/Cable Splicer Helper (s) Surgeon NIKHIL ROMERO DO Cable Splicer Helper: Dr. Hernandez to assist in retraction dissection and closure. Pre-Operative Diagnosis ruq abd pain, biliary dyskinesia Post-Operative Diagnosis same Procedure & Operative Findings Date of Procedure 08/21/21 Procedure Performed/Findings PROCEDURE: Laparoscopic cholecystectomy with intraoperative cholangiogram. COMPLICATIONS: None. PROCEDURE: The patient was taken to the operating suite and was prepped and draped in sterile fashion. A surgical pause was performed. Just superior to the umbilicus, a 12 mm incision was made. Dissection was taken down to the fascia, which was then scored and grasped with a Kyle and the abdomen was then entered. Stanley trocar was placed and secured. Pneumoperitoneum was achieved. A 5mm trochar place in the subxyphoid and 2 in the right upper quadrant. The gallbladder was then grasped and elevated. The cystic duct, and cystic artery were then dissected out. Clip was placed on the distal portion of the cystic duct which was then partially transected. An arrow catheter was inserted into the duct. The cholangiogram was then performed. No filing defects and contrast made its way into the duodenum. Catheter removed. Clips were placed on proximal portion of the cystic duct and then the duct was then transected. Clips were placed along the proximal and distal portion of the cystic artery which was then transected. Hook cautery was used to dissect the gallbladder from the gallbladder fossa achieving hemostasis. The gallbladder was placed in an Endobag and removed through the 12 mm trocar site. The abdomen was then reinspected. Copious amounts of irrigation were used to irrigate the abdomen and there were no signs of active bleeding. Hemostasis had been achieved. The 12 mm fascial defect was then closed with Donis Florin and 0 Vicryl suture in a lrlips-ai-tiqca fashion. The abdomen was then desufflated, the trocars were removed. The abdomen was then washed and dried. The skin was then closed using 4-0 Monocryl in a subcuticular fashion. The abdomen was washed and dried and Skin Affix was place over incisions. Patient tolerated the procedure well without any complications and was taken to the recovery room in stable condition. Anesthesia Type general Estimated Blood Loss Estimated blood loss (mL): minimal Specimens/Packing Specimens Removed gallbladder NIKHIL ROMERO DO Aug 21, 2021 09:12
--- NOTE | 2021-08-21 09:20 | Anesthesia-General Post-Op ---
General Patient Condition Mental Status/LOC: Same as Preop Cardiovascular: Satisfactory Nausea/Vomiting: Absent Respiratory: Satisfactory Pain: Controlled Complications: Absent Post Op Complications Complications None Follow Up Care/Instructions Patient Instructions None needed. Anesthesia/Patient Condition Patient Condition Patient is doing well, no complaints, stable vital signs, no apparent adverse anesthesia problems. No complications reported per nursing. MARTHA TURPIN CRNA Aug 21, 2021 09:20
[2021-08-21] MEDS ORDERED: fentaNYL INJ 100 MCG/2 ML AMP IVP ONE (09:30)
[2021-08-21] MEDS ORDERED: MEPERIDINE (DEMEROL) INJ 50 MG/ML IVP ONE (09:30)
[2021-08-21] MEDS ORDERED: morphine INJ 10 MG/ML 1ML (SYR OR VIAL) IVP ONE (09:30)
[2021-08-21] MEDS ORDERED: ONDANSETRON 4 MG/2 ML (SDV) Z0FRAN IVP PRN (09:30)
--- NOTE | 2021-08-21 09:34 | Diagnostic Imaging Report ---
INDICATION: Cholangiogram in surgery. Cholecystectomy. IMPRESSION: 7 seconds of fluoroscopy was used for the cholangiogram in surgery. 29 images were obtained which shows a normal appearance of the common bile duct with no filling defects or obstruction evident. There is contrast in the duodenum. Normal study. Dictated by: Dictated on workstation # [id number]
[2021-08-21] MEDS ORDERED: ONDANSETRON 4 MG/2 ML (SDV) Z0FRAN IVP ONE (10:45)
== END 2021-08-21 12:15 | disposition home or self-care (01) ==
LOC: SDC 05:59
PROVIDERS: ATTEND Surgery
DX: K81.1 Chronic cholecystitis (principal); K82.8 Other specified diseases of gallbladder; E11.42 Type 2 diabetes mellitus with diabetic polyneuropathy; I11.9 Hypertensive heart disease without heart failure; I25.10 Atherosclerotic heart disease of native coronary artery without angina pectoris; Z95.5 Presence of coronary angioplasty implant and graft; Z79.02 Long term (current) use of antithrombotics/antiplatelets; Z87.891 Personal history of nicotine dependence; Z79.4 Long term (current) use of insulin; Z79.84 Long term (current) use of oral hypoglycemic drugs; Z79.899 Other long term (current) drug therapy; Z79.82 Long term (current) use of aspirin; Z11.2 Encounter for screening for other bacterial diseases
CPT/HCPCS: 76000; 82947; 87081; 94664

== ENCOUNTER → 2021-08-28 | Outpatient (CLI) | payer MEDICARE, OTHER | LOC: WOUNDCARE 09:52 | PROVIDERS: ATTEND Family Medicine | DX: E11.621 Type 2 diabetes mellitus with foot ulcer (principal); I70.234 Atherosclerosis of native arteries of right leg with ulceration of heel and midfoot; L97.412 Non-pressure chronic ulcer of right heel and midfoot with fat layer exposed; T81.31XA Disruption of external operation (surgical) wound, not elsewhere classified, initial encounter; E11.65 Type 2 diabetes mellitus with hyperglycemia; E11.52 Type 2 diabetes mellitus with diabetic peripheral angiopathy with gangrene | CPT/HCPCS: 99213 ==

== ENCOUNTER → 2021-08-29 | Outpatient (CLI) | payer MEDICARE, OTHER ==
[2021-08-29 11:31] LABS: POTASSIUM 3.8 MMOL/L (3.6-5.0)
[2021-08-29 11:32] LABS: CALCIUM 9.2 MG/DL (8.5-10.1)
[2021-08-29 11:37] LABS: CREATININE SERUM 1.1 MG/DL (0.60-1.30)
== END ==
LOC: LAB 10:56
PROVIDERS: ATTEND Family Medicine
DX: E11.621 Type 2 diabetes mellitus with foot ulcer (principal); I70.234 Atherosclerosis of native arteries of right leg with ulceration of heel and midfoot; L97.412 Non-pressure chronic ulcer of right heel and midfoot with fat layer exposed; T81.31XA Disruption of external operation (surgical) wound, not elsewhere classified, initial encounter; E11.65 Type 2 diabetes mellitus with hyperglycemia
CPT/HCPCS: 36415; 80048; 85652; 86141

== ENCOUNTER → 2021-08-30 | Outpatient (CLI) | payer MEDICARE, OTHER ==
[~2021-08-30] MED LIST changes: +GADOTERATE 0.5 MMOL/ML (CLARISCAN) 20 ML VIAL IV ONE
--- NOTE | 2021-08-30 12:53 | Diagnostic Imaging Report ---
PROCEDURE: MR imaging right lower extremity with and without contrast. TECHNIQUE: Multiplanar, multisequence pre and post contrast-enhanced MR imaging of the right lower extremity was accomplished. INDICATION: Ulcer at the end of the right foot. COMPARISON: 11/26/2020 FINDINGS: There has been prior amputation of the toes through the 1st through 5th metatarsal necks. There is bone marrow edema with associated enhancement at the 1st metatarsal stump. There is associated T1-weighted hypointensity as well. There is a soft tissue ulceration distal to the 1st metatarsal stump which tracks down to the stump, with a rim-enhancing fluid collection measuring 1.2 x 0.6 x 0.5 cm in size. There is marked surrounding enhancing edema in the soft tissues of the stump, particularly medially. There is intramuscular edema and atrophy which is likely neurogenic. The Lisfranc ligament is intact. There are moderate degenerative changes in the midfoot. IMPRESSION: 1. 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 2. Ulceration of the distal medial right foot which tracks down to the 1st metatarsal stump with a small associated abscess. 3. Enhancing soft tissue edema about the foot, consistent with infection. Dictated by: Dictated on workstation # [id number]
== END ==
LOC: RAD 09:30
PROVIDERS: ATTEND Family Medicine
DX: E11.621 Type 2 diabetes mellitus with foot ulcer (principal)
CPT/HCPCS: 73720

== ENCOUNTER 2021-09-03 21:47 | Emergency (ER) | payer MEDICARE, OTHER ==
[~2021-09-03] VITALS: Ht 165 cm; Wt 90.7 kg
[~2021-09-03 21:47] MED LIST changes: -GADOTERATE 0.5 MMOL/ML (CLARISCAN) 20 ML VIAL IV ONE
[2021-09-03] MEDS ORDERED: ONDANSETRON 4 MG/2 ML (SDV) Z0FRAN IVP ONE (22:15)
[2021-09-03] MEDS ORDERED: NS IV 1000 ML 1,000 ML IV SCH (22:15)
[2021-09-03] MEDS ORDERED: ACETAMINOPHEN 500 MG TAB (TYLENOL) PO ONE (22:15)
--- NOTE | 2021-09-03 22:18 | ED General ---
General Stated Complaint: FEVER / ABD PAIN Source of Information: Patient Exam Limitations: No Limitations History of Present Illness Date Seen by Provider: Sep 03, 2021 Time Seen by Provider: 22:02 Initial Comments Patient is a 66-year-old female who presents to the emergency department today with a chief complaint of feeling generally weak, fatigued and slightly nauseous. She states that she is "having trouble thinking". She states the symptoms hit her all of a sudden this afternoon. She tells me that she had her gallbladder taken out about a week ago by Dr. Romero. She is not really been having to take any pain medications. She states she is not Covid vaccinated. Patient states that her told her that she had a slight fever today. She has not taken anything for it. She denies chest pain, shortness of breath or productive cough. No earache, sore throat or runny nose. She denies abdominal pain. She is a little nauseous. It has been a couple of days since she has had a bowel movement. She denies any burning with urination. No rashes. No sick contacts that she is aware of. She did get a flu shot this year she thinks 2 or 3 months ago. She has a history of diabetes and hypertension. She does see Dr. Kohli for a known heart murmur. All other review of systems reviewed and negative except as stated. Timing/Duration: 12 Hours Severity: Moderate Associated Systoms: Fever/Chills, Malaise, Nausea/Vomiting, Weakness Allergies and Home Medications Allergies Coded Allergies: No Known Drug Allergies (Unverified , 08/21/21) Patient Home Medication List Home Medication List Reviewed: Yes Aspirin (Aspirin) 81 Mg Tab.chew, 81 MG PO DAILY, (Reported) Entered as Reported by: AMY TODD on 04/27/18 1329 Calcium Carbonate (Tums) 300 Mg Tab.chew, 300-600 MG PO PRN PRN for HEARTBURN, (Reported) Entered as Reported by: DAPHNEY SHIRLEY on 09/06/20 1002 Clopidogrel Bisulfate (Clopidogrel) 75 Mg Tablet, 75 MG PO DAILY, (Reported) Entered as Reported by: AMY TODD on 08/16/19 1445 Dicyclomine HCl (Dicyclomine HCl) 20 Mg Tablet, 20 MG PO Q6H PRN for abdominal pain Prescribed by: TERRI SOUSA on 06/22/21 1143 Docusate Sodium (Stool Softener) 100 Mg Capsule, 100-200 MG PO BID PRN for CONSTIPATION-1ST LINE, (Reported) Entered as Reported by: DAPHNEY SHIRLEY on 09/06/20 1002 Doxazosin Mesylate (Doxazosin Mesylate) 1 Mg Tablet, 1 MG PO HS, (Reported) Entered as Reported by: ANASTASIIA SMITH on 04/29/21 1203 Gabapentin (Neurontin) 300 Mg Capsule, 900 MG PO TID, (Reported) Entered as Reported by: ANIYA ISABEL on 04/02/20 1448 Glimepiride (Glimepiride) 4 Mg Tablet, 4 MG PO BID, (Reported) Entered as Reported by: JACQUES SHANNON on 12/05/17 0950 Hydralazine HCl (Hydralazine HCl) 50 Mg Tablet, 50 MG PO TID, (Reported) Entered as Reported by: ANASTASIIA SMITH on 02/04/18 1521 Hydrocodone/Acetaminophen (Hydrocodone-Acetamin 5-325 mg) 1 Each Tablet, 1 EACH PO Q4H PRN for PAIN-MODERATE (5-7) Prescribed by: NIKHIL ROMERO on 08/21/21 0907 Insulin Determir (Levemir) 1,000 Units/10 Ml Soln, 20 UNITS SQ HS, (Reported) Entered as Reported by: VALERIA FAJARDO on 08/14/21 1105 Insulin NPH Human Isophane (NovoLIN N Flexpen) 100 Unit/1 Ml Insuln.pen, 13 UNIT SQ TID, (Reported) Entered as Reported by: VIANEY LYMAN on 07/05/21 1013 Liraglutide (Victoza 3-Rigo) 0.6 Mg/0.1 Ml Pen.injctr, 1.8 MG SQ HS, (Reported) Entered as Reported by: DAPHNEY SHIRLEY on 11/27/20 0958 Metoprolol Succinate (Metoprolol Succinate) 200 Mg Tab.er.24h, 200 MG PO DAILY, (Reported) Entered as Reported by: ANASTASIIA SMITH on 02/04/18 1521 Ondansetron (Ondansetron Odt) 4 Mg Tab.rapdis, 4 MG PO Q8H PRN for nausea Prescribed by: TERRI SOUSA on 06/22/21 1143 Pantoprazole Sodium (Pantoprazole Sodium) 20 Mg Tablet.dr, 20 MG PO DAILY, (Reported) Entered as Reported by: AMY TODD on 08/16/19 1445 Pnv No.122/Iron/Folic Acid ( Multi Tablet) 1 Each Tablet, 1 EACH PO DAILY, (Reported) Entered as Reported by: ANASTASIIA SMITH on 04/29/21 1209 Tramadol HCl (Tramadol HCl) 50 Mg Tablet, 50 MG PO TID PRN for PAIN-MODERATE (5- 7), (Reported) Entered as Reported by: BRYSON FELTON on 04/26/16 1128 Review of Systems Review of Systems Constitutional: see HPI, fever, malaise, weakness EENTM: no symptoms reported Respiratory: no symptoms reported Cardiovascular: no symptoms reported Gastrointestinal: nausea Genitourinary: no symptoms reported Musculoskeletal: no symptoms reported Skin: no symptoms reported Psychiatric/Neurological: Other ("Trouble thinking") All Other Systems Reviewed Negative Unless Noted: Yes Past Mzetwjy-Cvgyda-Gcsowz Hx Immunizations Up To Date Tetanus Booster (TDap): Unknown PED Vaccines UTD: No First/Initial COVID19 Vaccinat: PT REFUSES Second COVID19 Vaccination Ramesh: PT REFUSES Third COVID19 Vaccination Date: NOT APLICABLE Seasonal Allergies Seasonal Allergies: No Past Medical History Surgery/Hospitalization HX: TOE AMPUATION R SIDE. 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 Sexually Transmitted Disease: No HIV/AIDS: No Genitourinary: Yes UTI-Chronic Gastrointestinal: Yes Gall Bladder Disease Musculoskeletal: Yes Amputee, Fibromyalgia Endocrine: Yes Diabetes, Insulin dep HEENT: No (GLASSES) Loss of Vision: Denies Hearing Impairment: Denies Cancer: No Psychosocial: No Integumentary: Yes (diabetic ulcer right foot) Blood Disorders: No Adverse Reaction/Blood Tranf: No (N/A) Family Medical History Cardiovascular disease 19 MOTHER, G8 BROTHER G8 BROTHER Completed stroke 19 MOTHER, Diabetes mellitus 19 FATHER, 19 MOTHER, G8 BROTHER G8 SISTER FH: brain tumor FH: breast cancer 19 MOTHER, FH: lung cancer FHx: peripheral neuropathy Hypertension 19 FATHER, Lung c 19 FATHER, Myocardial infarction 19 MOTHER, Neuro No Pertinent Family Hx Physical Exam Vital Signs Vital Signs - First Documented 09/03/21 22:00 Temp 38.9 Pulse 93 Resp 20 B/P (MAP) 188/73 (111) Pulse Ox 96 O2 Delivery Room Air Capillary Refill : Height, Weight, BMI Height: 5'5.50" Weight: 195lbs. 0.0oz. 88.595698ji; 33.38 BMI Method:Stated General Appearance: No Apparent Distress, WD/WN Eyes: Bilateral Eye Normal Inspection, Bilateral Eye PERRL, Bilateral Eye EOMI HEENT: PERRL/EOMI Neck: Normal Inspection Respiratory: Lungs Clear, Normal Breath Sounds, No Accessory Muscle Use, No Respiratory Distress Cardiovascular: Regular Rate, Rhythm, Systolic Murmur (3/6 systolic murmur heard throughout the precordium) Gastrointestinal: Normal Bowel Sounds, Non Tender, Soft, Other (Healing laparoscopic scars over the anterior abdomen with no signs of infection) Extremity: Normal Inspection, Normal Range of Motion, Non Tender, No Calf Tenderness, No Pedal Edema, Other (Status post amputations of all her toes to the right foot. She does have a quarter sized wound at the location of her big toe. Minimal erythema along the amputation margins. No extensive erythema or fluctuance.) Neurologic/Psychiatric: Alert, Oriented x3, No Motor/Sensory Deficits, Depressed Affect, Other (Flat affect) Skin: Normal Color, Warm/Dry Progress/Results/Core Measures Suspected Sepsis SIRS Temperature: Pulse: Respiratory Rate: Laboratory Tests 09/03/21 22:44: White Blood Count 6.4 Blood Pressure / Mean: Laboratory Tests 09/03/21 22:18: Creatinine 1.10, Total Bilirubin 0.3 09/03/21 22:44: Platelet Count 217 Results/Orders Lab Results Laboratory Tests Test 09/03/21 22:18 09/03/21 22:40 09/03/21 22:44 Range/Units Sodium Level 134 L 135-145 MMOL/L Potassium Level 4.1 3.6-5.0 MMOL/L Chloride Level 99 98-107 MMOL/L Carbon Dioxide Level 22 21-32 MMOL/L Anion Gap 13 5-14 MMOL/L Blood Urea Nitrogen 17 7-18 MG/DL Creatinine 1.10 0.60-1.30 MG/DL Estimat Glomerular Filtration Rate 50 BUN/Creatinine Ratio 15 Glucose Level 268 H 70-105 MG/DL Calcium Level 8.8 8.5-10.1 MG/DL Corrected Calcium 9.2 8.5-10.1 MG/DL Total Bilirubin 0.3 0.1-1.0 MG/DL Aspartate Amino Transf (AST/SGOT) 30 5-34 U/L Alanine Aminotransferase (ALT/SGPT) 27 0-55 U/L Alkaline Phosphatase 96 40-136 U/L Total Protein 7.3 6.4-8.2 GM/DL Albumin 3.5 3.2-4.5 GM/DL Influenza Type A (RT-PCR) Not Detected Not Detecte Influenza Type B (RT-PCR) Not Detected Not Detecte SARS-CoV-2 RNA (RT-PCR) Detected H Not Detecte Urine Color YELLOW Urine Clarity CLEAR Urine pH 6.0 5-9 Urine Specific [place] >=1.030 1.016-1.022 Urine Protein 1+ H NEGATIVE Urine Glucose (UA) TRACE H NEGATIVE Urine Ketones NEGATIVE NEGATIVE Urine Nitrite NEGATIVE NEGATIVE Urine Bilirubin NEGATIVE NEGATIVE Urine Urobilinogen 0.2 < = 1.0 MG/DL Urine Leukocyte Esterase NEGATIVE NEGATIVE Urine RBC (Auto) NEGATIVE NEGATIVE Urine RBC NONE /HPF Urine WBC 0-2 /HPF Urine Squamous Epithelial Cells 5-10 /HPF Urine Renal Epithelial Cells NONE /HPF Urine Crystals NONE /LPF Urine Bacteria TRACE /HPF Urine Casts NONE /LPF Urine Mucus NEGATIVE /LPF Urine Culture Indicated NO White Blood Count 6.4 4.3-11.0 10^3/uL Red Blood Count 3.30 L 3.80-5.11 10^6/uL Hemoglobin 9.5 L 11.5-16.0 g/dL Hematocrit 30 L 35-52 % Mean Corpuscular Volume 90 80-99 fL Mean Corpuscular Hemoglobin 29 25-34 pg Mean Corpuscular Hemoglobin Concent 32 32-36 g/dL Red Cell Distribution Width 13.8 10.0-14.5 % Platelet Count 217 130-400 10^3/uL Mean Platelet Volume 9.1 9.0-12.2 fL Immature Granulocyte % (Auto) 1 % Neutrophils (%) (Auto) 78 H 42-75 % Lymphocytes (%) (Auto) 10 L 12-44 % Monocytes (%) (Auto) 10 0-12 % Eosinophils (%) (Auto) 1 0-10 % Basophils (%) (Auto) 1 0-10 % Neutrophils # (Auto) 5.0 1.8-7.8 10^3/uL Lymphocytes # (Auto) 0.6 L 1.0-4.0 10^3/uL Monocytes # (Auto) 0.6 0.0-1.0 10^3/uL Eosinophils # (Auto) 0.1 0.0-0.3 10^3/uL Basophils # (Auto) 0.0 0.0-0.1 10^3/uL Immature Granulocyte # (Auto) 0.0 0.0-0.1 10^3/uL My Orders Orders - TERRI SOUSA MD Ed Iv/Invasive Line Start (09/03/21 22:12) Cbc With Automated Diff (09/03/21 22:12) Comprehensive Metabolic Panel (09/03/21 22:12) Ua Culture If Indicated (09/03/21 22:12) Covid 19 Inhouse Test (09/03/21 22:12) Influenza A And B By Pcr (09/03/21 22:12) Isolation Central Supply Req (09/03/21 22:12) Ns Iv 1000 Ml (Sodium Chloride 0.9%) (09/03/21 22:15) Ondansetron Injection (Zofran Injectio (09/03/21 22:15) Acetaminophen Tablet (Tylenol Tablet) (09/03/21 22:15) Medications Given in ED Vital Signs/I&O 09/03/21 09/03/21 09/03/21 22:00 22:53 23:55 Temp 38.9 38.9 Pulse 93 81 Resp 20 20 B/P (MAP) 188/73 (111) 162/54 Pulse Ox 96 95 O2 Delivery Room Air Room Air Capillary Refill : Progress Note : Time: 23:05 Progress Note Reevaluated patient, she looks like she is feeling much better. She is perkier and more alert. IV fluids are infusing. I discussed with her monoclonal antibody infusion. She is hesitant. I provided her with paperwork regarding the infusion, advised her that it is still under emergency use authorization. She was concerned that this was actually the vaccine and I explained to her know that it was a therapeutic to help prevent the worsening of the virus and help keep her out of the hospital and from developing Covid pneumonia. Patient is reviewing literature at this time. [id number] Patient consents to monoclonal antibody infusion, I have filled out the order. I have advised her that the hospital will contact her for an appointment time. Again the patient looks much improved over presentation. Oxygen saturations still 94 to 95% on room air with no increased work of breathing Departure Impression Primary Impression: COVID-19 Disposition: HOME, SELF-CARE Condition: Stable (ERASED) Departure-Patient Inst. Decision time for Depature: 23:34 Referrals: [facility] [place] Primary Care Physician Patient Instructions: COVID-19 (DC) Add. Discharge Instructions: Drink plenty of fluids to stay well-hydrated. Alternate Tylenol and/or ibuprofen for any fever greater than 100.4 and body ac hes. You will need to quarantine for 10 days starting today. Please get an oxygen monitor at [facility] and check your oxygen saturations throughout the day over the course of the next 10 days. If you notice any numbers that are below 90 especially if you have increasing shortness of breath please come back to the emergency room for reevaluation. TERRI SOUSA MD Sep 03, 2021 22:18
[2021-09-03 22:36] LABS: ALBUMIN 3.5 GM/DL (3.2-4.5); POTASSIUM 4.1 MMOL/L (3.6-5.0)
[2021-09-03 22:37] LABS: CALCIUM 8.8 MG/DL (8.5-10.1)
[2021-09-03 22:39] LABS: TOTAL PROTEIN 7.3 GM/DL (6.4-8.2)
[2021-09-03 22:40] LABS: BILIRUBIN,TOTAL 0.3 MG/DL (0.1-1.0)
[2021-09-03 22:42] LABS: CREATININE SERUM 1.1 MG/DL (0.60-1.30)
[2021-09-03 22:46] LABS: BILIRUBIN,URINE NEGATIVE (NEGATIVE); CLARITY,URINE CLEAR; COLOR,URINE YELLOW; GLUCOSE, URINE (UA) TRACE (NEGATIVE); KETONES,URINE NEGATIVE (NEGATIVE); LEUKOCYTE ESTERASE ,URINE NEGATIVE (NEGATIVE); NITRITE,URINE NEGATIVE (NEGATIVE); PROTEIN,URINE 1+ (NEGATIVE)
[2021-09-03 22:52] LABS: BASOPHILS % (AUTO) 1 % (0-10); EOSINOPHILS # (AUTO) 0.1 10^3/uL (0.0-0.3); EOSINOPHILS % (AUTO) 1 % (0-10); HEMATOCRIT 30 % (35-52); HEMOGLOBIN 9.5 g/dL (11.5-16.0); LYMPHOCYTES # (AUTO) 0.6 10^3/uL (1.0-4.0); LYMPHOCYTES % (AUTO) 10 % (12-44); MEAN CORPUSCULAR HEMOGLOBIN 29 pg (25-34); MEAN CORPUSCULAR HGB CONC 32 g/dL (32-36); MEAN CORPUSCULAR VOLUME 90 fL (80-99); MEAN PLATELET VOLUME 9.1 fL (9.0-12.2); MONOCYTES # (AUTO) 0.6 10^3/uL (0.0-1.0); MONOCYTES % (AUTO) 10 % (0-12); NEUTROPHILS % (AUTO) 78 % (42-75); PLATELET COUNT 217 10^3/uL (130-400); WHITE BLOOD COUNT 6.4 10^3/uL (4.3-11.0)
[2021-09-03 22:53] LABS: BACTERIA,URINE TRACE /HPF; WBC,URINE 0-2 /HPF
[2021-09-03 23:55] VITALS: BP 162/54
== END 2021-09-03 23:55 | disposition home or self-care (01) ==
LOC: EDUNIT# 21:47 → ER 21:48
DX: U07.1 COVID-19 (principal); E11.9 Type 2 diabetes mellitus without complications; Z79.4 Long term (current) use of insulin; Z79.82 Long term (current) use of aspirin; Z79.01 Long term (current) use of anticoagulants
CPT/HCPCS: 36415; 80053; 81000; 85025; 87636

== ENCOUNTER 2021-09-09 08:42 | Outpatient (CLI) | payer MEDICARE, OTHER ==
[~2021-09-09] VITALS: Ht 165 cm; Wt 95.5 kg
[2021-09-09] MEDS ORDERED: diphenhydrAMINE 50 MG/ML INJ (BENADRYL) IV PRN (09:30)
[2021-09-09] MEDS ORDERED: EPINEPHrine INJECTION 1 MG/ML AMP IM PRN (09:30)
[2021-09-09] MEDS ORDERED: ONDANSETRON 4 MG/2 ML (SDV) Z0FRAN IV PRN (09:30)
[2021-09-09] MEDS ORDERED: BAMLANIVIMAB 700 MG/ETESEVIMAB 1,400 MG IN NS IV ONE ×3 (09:30)
[2021-09-09] MEDS ORDERED: ACETAMINOPHEN 500 MG TAB (TYLENOL) PO PRN (09:30)
[2021-09-09 11:03] VITALS: BP 159/50
== END 2021-09-09 11:03 | disposition home or self-care (01) ==
LOC: INFUSION 08:42
PROVIDERS: ATTEND Emergency Medicine
DX: U07.1 COVID-19 (principal)

== ENCOUNTER → 2021-09-18 | Outpatient (CLI) | payer MEDICARE, OTHER | LOC: WOUNDCARE 09:52 | PROVIDERS: ATTEND Family Medicine | DX: I96 Gangrene, not elsewhere classified (principal); E13.52 Other specified diabetes mellitus with diabetic peripheral angiopathy with gangrene; E13.65 Other specified diabetes mellitus with hyperglycemia; M86.071 Acute hematogenous osteomyelitis, right ankle and foot; T81.31XA Disruption of external operation (surgical) wound, not elsewhere classified, initial encounter; B95.62 Methicillin resistant Staphylococcus aureus infection as the cause of diseases classified elsewhere; L97.412 Non-pressure chronic ulcer of right heel and midfoot with fat layer exposed | CPT/HCPCS: A6266; G0463; 99213 ==

== ENCOUNTER → 2021-09-25 | Outpatient (CLI) | payer MEDICARE, OTHER ==
[~2021-09-25] MED LIST changes: +ASCO500T17 PO; +CHOL20003 PO; +INSU100I14 SQ; +LNZ600T PO; +ZINC220T3 PO
== END ==
LOC: WOUNDCARE 09:18
PROVIDERS: ATTEND Family Medicine
DX: E11.621 Type 2 diabetes mellitus with foot ulcer (principal); I70.234 Atherosclerosis of native arteries of right leg with ulceration of heel and midfoot; L97.412 Non-pressure chronic ulcer of right heel and midfoot with fat layer exposed; T81.31XA Disruption of external operation (surgical) wound, not elsewhere classified, initial encounter; E11.65 Type 2 diabetes mellitus with hyperglycemia; M86.071 Acute hematogenous osteomyelitis, right ankle and foot; B95.62 Methicillin resistant Staphylococcus aureus infection as the cause of diseases classified elsewhere; E11.52 Type 2 diabetes mellitus with diabetic peripheral angiopathy with gangrene
CPT/HCPCS: 99213

== ENCOUNTER 2021-09-30 10:22 | Observation (INO) | payer MEDICARE, OTHER ==
[2021-09-30] VITALS (10 sets, daily range): BP systolic 146–205; BP diastolic 74–97
[~2021-09-30] VITALS: Ht 165 cm; Wt 89.3 kg
[~2021-09-30 10:22] MED LIST changes: -ASCO500T17 PO; -CHOL20003 PO; -INSU100I14 SQ; -LNZ600T PO; -ZINC220T3 PO
[2021-09-30] MEDS ORDERED: NITROGLYCERIN 0.4 MG SL TABS BTL 25'S SL ONE (10:54)
[2021-09-30] MEDS ORDERED: ASPIRIN 81 MG CHEW (CHILDREN'S ASA) ONE (10:54)
[2021-09-30] MEDS: NITROGLYCERIN 0.4 MG SL TABS BTL 25'S SL PRN ×2 (10:57→11:02)
[2021-09-30] MEDS ORDERED: ASPIRIN 81 MG CHEW (CHILDREN'S ASA) PO ONE (11:00)
[2021-09-30 11:11] LABS: BASOPHILS % (AUTO) 1 % (0-10); EOSINOPHILS # (AUTO) 0.1 10^3/uL (0.0-0.3); EOSINOPHILS % (AUTO) 1 % (0-10); HEMATOCRIT 34 % (35-52); HEMOGLOBIN 10.9 g/dL (11.5-16.0); LYMPHOCYTES % (AUTO) 25 % (12-44); MEAN CORPUSCULAR HEMOGLOBIN 29 pg (25-34); MEAN CORPUSCULAR HGB CONC 32 g/dL (32-36); MEAN CORPUSCULAR VOLUME 90 fL (80-99); MEAN PLATELET VOLUME 9.2 fL (9.0-12.2); MONOCYTES # (AUTO) 0.6 10^3/uL (0.0-1.0); MONOCYTES % (AUTO) 7 % (0-12); NEUTROPHILS # (AUTO) 5.5 10^3/uL (1.8-7.8); NEUTROPHILS % (AUTO) 67 % (42-75); PLATELET COUNT 187 10^3/uL (130-400); WHITE BLOOD COUNT 8.2 10^3/uL (4.3-11.0)
[2021-09-30 11:17] LABS: ALBUMIN 4.2 GM/DL (3.2-4.5); PROTHROMBIN TIME PATIENT 13.2 SEC (12.2-14.7)
[2021-09-30 11:18] LABS: CALCIUM 12.7 MG/DL (8.5-10.1)
[2021-09-30 11:20] LABS: TOTAL PROTEIN 8.2 GM/DL (6.4-8.2)
[2021-09-30 11:21] LABS: BILIRUBIN,TOTAL 0.4 MG/DL (0.1-1.0)
[2021-09-30 11:23] LABS: CREATININE SERUM 1.31 MG/DL (0.60-1.30)
[2021-09-30 11:26] LABS: MAGNESIUM 2.1 MG/DL (1.6-2.4)
--- NOTE | 2021-09-30 11:34 | Diagnostic Imaging Report ---
CLINICAL INDICATIONS: Patient with chest pain. EXAM: Portable chest x-ray upright view. COMPARISON: Chest x-ray dated 07/05/2021. FINDINGS: Lungs/pleura: There is interval development of subtle airspace opacities and curvilinear opacities in right lung bases, may represent minimal atelectasis versus infiltrate otherwise, lungs are clear. There is no pneumothorax. There is no pleural effusion. Mediastinum: Unremarkable. Pulmonary vasculature: Unremarkable. Heart: Unremarkable. Bones/extrathoracic soft tissue: Unremarkable. IMPRESSION: Is interval development of minimal right basilar atelectasis versus infiltrates. Dictated by: Dictated on workstation # [id number]
[2021-09-30] MEDS ORDERED: NS IV 1000 ML 1,000 ML IV ONE (12:00)
--- NOTE | 2021-09-30 12:03 | ED Chest Pain ---
General Chief Complaint: Chest Pain Stated Complaint: CP Nursing Triage Note: PATIENT TO ED FOR CHEST PAIN THAT STARTED LAST NIGHT. REPORTS SHE HAD STARTED WITH A BACK PAIN TWO WEEKS AGO. UNSURE IF THIS IS CAUSING HER CHEST PAIN. HAS FIVE STENTS PLACED. PATIENT AMB. TO ROOM 03. Source: patient, old records Exam Limitations: no limitations History of Present Illness Date Seen by Provider: Sep 30, 2021 Time Seen by Provider: 10:55 Initial Comments This 66-year-old woman presents to the emergency room with complaints of left central chest pain and mid upper back pain that started last night. She has not noted any specific alleviating or exacerbating factors. She states the pain in her back feels like a stabbing pain. This pain scared her and she therefore could not sleep. She tried icy hot which was not helpful. She has had some nausea without vomiting. She thought perhaps it got a bit worse when lying flat. She has occasional bouts of shortness of breath but nothing consistent. She states this pain feels similar to when she had angina previously requiring c ardiac cath intervention. She reports her pain is 8 out of 10 at this time. Patient also has history of osteomyelitis in her feet resulting in amputation of her toes. She reports she is to have surgery later this month to further treat her foot infections. She is currently attending wound care and is on linezolid. She wants to ensure her cardiac health is optimal before having surgery later in the month. Allergies and Home Medications Allergies Coded Allergies: No Known Drug Allergies (Unverified , 08/21/21) Patient Home Medication List Home Medication List Reviewed: Yes Aspirin (Aspirin) 81 Mg Tab.chew, 81 MG PO DAILY, (Reported) Entered as Reported by: AMY TODD on 04/27/18 1329 Calcium Carbonate (Tums) 300 Mg Tab.chew, 300-600 MG PO PRN PRN for HEARTBURN, (Reported) Entered as Reported by: DAPHNEY SHIRLEY on 09/06/20 1002 Clopidogrel Bisulfate (Clopidogrel) 75 Mg Tablet, 75 MG PO DAILY, (Reported) Entered as Reported by: AMY TODD on 08/16/19 1445 Dicyclomine HCl (Dicyclomine HCl) 20 Mg Tablet, 20 MG PO Q6H PRN for abdominal pain Prescribed by: TERRI SOUSA on 06/22/21 1143 Docusate Sodium (Stool Softener) 100 Mg Capsule, 100-200 MG PO BID PRN for CONSTIPATION-1ST LINE, (Reported) Entered as Reported by: DAPHNEY SHIRLEY on 09/06/20 1002 Doxazosin Mesylate (Doxazosin Mesylate) 1 Mg Tablet, 1 MG PO HS, (Reported) Entered as Reported by: ANASTASIIA SMITH on 04/29/21 1203 Gabapentin (Neurontin) 300 Mg Capsule, 900 MG PO TID, (Reported) Entered as Reported by: ANIYA ISABEL on 04/02/20 1448 Glimepiride (Glimepiride) 4 Mg Tablet, 4 MG PO BID, (Reported) Entered as Reported by: JACQUES SHANNON on 12/05/17 0950 Hydralazine HCl (Hydralazine HCl) 50 Mg Tablet, 50 MG PO TID, (Reported) Entered as Reported by: ANASTASIIA SMITH on 02/04/18 1521 Hydrocodone/Acetaminophen (Hydrocodone-Acetamin 5-325 mg) 1 Each Tablet, 1 EACH PO Q4H PRN for PAIN-MODERATE (5-7) Prescribed by: NIKHIL ROMERO on 08/21/21 0907 Insulin Determir (Levemir) 1,000 Units/10 Ml Soln, 20 UNITS SQ HS, (Reported) Entered as Reported by: VALERIA FAJARDO on 08/14/21 1105 Insulin NPH Human Isophane (NovoLIN N Flexpen) 100 Unit/1 Ml Insuln.pen, 13 UNIT SQ TID, (Reported) Entered as Reported by: VIANEY LYMAN on 07/05/21 1013 Liraglutide (Victoza 3-Rigo) 0.6 Mg/0.1 Ml Pen.injctr, 1.8 MG SQ HS, (Reported) Entered as Reported by: DAPHNEY SHIRLEY on 11/27/20 0958 Metoprolol Succinate (Metoprolol Succinate) 200 Mg Tab.er.24h, 200 MG PO DAILY, (Reported) Entered as Reported by: ANASTASIIA SMITH on 02/04/18 1521 Ondansetron (Ondansetron Odt) 4 Mg Tab.rapdis, 4 MG PO Q8H PRN for nausea Prescribed by: TERRI SOUSA on 06/22/21 1143 Pantoprazole Sodium (Pantoprazole Sodium) 20 Mg Tablet.dr, 20 MG PO DAILY, (Reported) Entered as Reported by: AMY TODD on 08/16/19 1445 Pnv No.122/Iron/Folic Acid ( Multi Tablet) 1 Each Tablet, 1 EACH PO DAILY, (Reported) Entered as Reported by: ANASTASIIA SMITH on 04/29/21 1209 Tramadol HCl (Tramadol HCl) 50 Mg Tablet, 50 MG PO TID PRN for PAIN-MODERATE (5- 7), (Reported) Entered as Reported by: BRYSON FELTON on 04/26/16 1128 Review of Systems Review of Systems Constitutional: no symptoms reported EENTM: No Symptoms Reported Respiratory: See HPI Cardiovascular: See HPI Gastrointestinal: See HPI Genitourinary: No Symptoms Reported Musculoskeletal: see HPI Skin: no symptoms reported Psychiatric/Neurological: No Symptoms Reported Endocrine: No Symptoms Reported Past Zeygrnp-Qfxled-Rqyqcc Hx Patient Social History Tobacco Use?: No Substance use?: No Alcohol Use?: No Pt feels they are or have been: No Immunizations Up To Date Tetanus Booster (TDap): Unknown PED Vaccines UTD: No First/Initial COVID19 Vaccinat: none Second COVID19 Vaccination Ramesh: none Third COVID19 Vaccination Date: none Seasonal Allergies Seasonal Allergies: No Past Medical History Surgery/Hospitalization HX: FIVE STENTS PLACED APPROX. 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 Sexually Transmitted Disease: No HIV/AIDS: No Genitourinary: Yes UTI-Chronic Gastrointestinal: Yes Gall Bladder Disease Musculoskeletal: Yes Amputee, Fibromyalgia Endocrine: Yes Diabetes, Insulin dep HEENT: No (GLASSES) Loss of Vision: Denies Hearing Impairment: Denies Cancer: No Psychosocial: No Integumentary: Yes (diabetic ulcer right foot) Blood Disorders: No Adverse Reaction/Blood Tranf: No (N/A) Family Medical History Cardiovascular disease 19 MOTHER, G8 BROTHER G8 BROTHER Completed stroke 19 MOTHER, Diabetes mellitus 19 FATHER, 19 MOTHER, G8 BROTHER G8 SISTER FH: brain tumor FH: breast cancer 19 MOTHER, FH: lung cancer FHx: peripheral neuropathy Hypertension 19 FATHER, Lung c 19 FATHER, Myocardial infarction 19 MOTHER, Neuro No Pertinent Family Hx Physical Exam Vital Signs Vital Signs - First Documented Capillary Refill : Less Than 3 Seconds Height, Weight, BMI Height: 5'5.50" Weight: 195lbs. 0.0oz. 88.681092cx; 33.00 BMI Method:Stated General Appearance: WD/WN, Mild Distress HEENT: Normal ENT Inspection Neck: Normal Inspection; No JVD Respiratory: Chest Non Tender, Lungs Clear, Normal Breath Sounds, No Accessory Muscle Use, No Respiratory Distress Cardiovascular: Regular Rate, Rhythm, No Edema, Systolic Murmur Gastrointestinal: Normal Bowel Sounds, Non Tender, Soft Extremity: Normal Inspection, No Calf Tenderness, No Pedal Edema Neurologic/Psychiatric: Alert, Oriented x3, No Motor/Sensory Deficits, Normal Mood/Affect Skin: Normal Color, Warm/Dry Other comments TTP over the mid back paraspinous muscles. Progress/Results/Core Measures Results/Orders Lab Results Laboratory Tests Test 09/30/21 10:32 09/30/21 12:30 Range/Units White Blood Count 8.2 4.3-11.0 10^3/uL Red Blood Count 3.76 L 3.80-5.11 10^6/uL Hemoglobin 10.9 L 11.5-16.0 g/dL Hematocrit 34 L 35-52 % Mean Corpuscular Volume 90 80-99 fL Mean Corpuscular Hemoglobin 29 25-34 pg Mean Corpuscular Hemoglobin Concent 32 32-36 g/dL Red Cell Distribution Width 14.0 10.0-14.5 % Platelet Count 187 130-400 10^3/uL Mean Platelet Volume 9.2 9.0-12.2 fL Immature Granulocyte % (Auto) 0 % Neutrophils (%) (Auto) 67 42-75 % Lymphocytes (%) (Auto) 25 12-44 % Monocytes (%) (Auto) 7 0-12 % Eosinophils (%) (Auto) 1 0-10 % Basophils (%) (Auto) 1 0-10 % Neutrophils # (Auto) 5.5 1.8-7.8 10^3/uL Lymphocytes # (Auto) 2.0 1.0-4.0 10^3/uL Monocytes # (Auto) 0.6 0.0-1.0 10^3/uL Eosinophils # (Auto) 0.1 0.0-0.3 10^3/uL Basophils # (Auto) 0.0 0.0-0.1 10^3/uL Immature Granulocyte # (Auto) 0.0 0.0-0.1 10^3/uL Prothrombin Time 13.2 12.2-14.7 SEC INR Comment 1.0 0.8-1.4 Activated Partial Thromboplast Time 48 H 24-35 SEC D-Dimer < 0.27 0.00-0.49 UG/ML Sodium Level 138 135-145 MMOL/L Potassium Level 4.0 3.6-5.0 MMOL/L Chloride Level 100 98-107 MMOL/L Carbon Dioxide Level 24 21-32 MMOL/L Anion Gap 14 5-14 MMOL/L Blood Urea Nitrogen 29 H 7-18 MG/DL Creatinine 1.31 H 0.60-1.30 MG/DL Estimat Glomerular Filtration Rate 45 BUN/Creatinine Ratio 22 Glucose Level 87 70-105 MG/DL Calcium Level 12.7 H 8.5-10.1 MG/DL Corrected Calcium 12.5 H 8.5-10.1 MG/DL Magnesium Level 2.1 1.6-2.4 MG/DL Total Bilirubin 0.4 0.1-1.0 MG/DL Aspartate Amino Transf (AST/SGOT) 21 5-34 U/L Alanine Aminotransferase (ALT/SGPT) 27 0-55 U/L Alkaline Phosphatase 89 40-136 U/L Myoglobin 53.7 10.0-92.0 NG/ML Troponin I < 0.028 < 0.028 <0.028 NG/ML C-Reactive Protein High Sensitivity 2.56 H 0.00-0.50 MG/DL Total Protein 8.2 6.4-8.2 GM/DL Albumin 4.2 3.2-4.5 GM/DL My Orders Orders - RADHA HEARD MD Cbc With Automated Diff (09/30/21 10:55) Magnesium (09/30/21 10:55) Chest 1 View, Ap/Pa Only (09/30/21 10:55) Ekg Tracing (09/30/21 10:55) Comprehensive Metabolic Panel (09/30/21 10:55) Myoglobin Serum (09/30/21 10:55) Protime With Inr (09/30/21 10:55) Partial Thromboplastin Time (09/30/21 10:55) O2 (09/30/21 10:55) Monitor-Rhythm Ecg Trace Only (09/30/21 10:55) Lipid Panel (10/01/21 06:00) Ed Iv/Invasive Line Start (09/30/21 10:55) Troponin I Ponce (09/30/21 10:55) Nitroglycerin 0.4 Mg Btl 25's (Nitrostat (09/30/21 11:00) Aspirin Chewable Tablet (Baby Aspirin Ch (09/30/21 11:00) Aspirin Chewable Tablet (Baby Aspirin Ch (09/30/21 10:54) Nitroglycerin 0.4 Mg Btl 25's (Nitrostat (09/30/21 10:54) Ed Iv/Invasive Line Start (09/30/21 11:52) Ns Iv 1000 Ml (Sodium Chloride 0.9%) (09/30/21 12:00) Hs C Reactive Protein (09/30/21 11:53) Troponin I Ponce (09/30/21 12:30) Fibrin Degradation Products (09/30/21 12:00) Ketorolac Injection (Toradol Injection) (09/30/21 13:00) Orphenadrine Inj (Ed Only) (Norflex Inje (09/30/21 13:00) Ondansetron Injection (Zofran Injectio (09/30/21 14:00) Lidocaine 2% Viscous 15 Ml (Xylocaine Vi (09/30/21 14:00) Antacid Suspension (Mylanta Suspension (09/30/21 14:00) Famotidine Injection (Pepcid Injection) (09/30/21 13:48) Ct Angio Chest W (09/30/21 14:12) Iohexol Injection (Omnipaque 350 Mg/Ml 1 (09/30/21 14:30) Received Contrast (Hold Metformin- Contr (09/30/21 14:30) Sodium Chloride Flush (Catheter Flush Sy (09/30/21 14:30) Ns (Ivpb) (Sodium Chloride 0.9% Ivpb Bag (09/30/21 14:30) Medications Given in ED Current Medications Medications Dose Ordered Sig/[place] Route Start Time Stop Time Status Last Admin Dose Admin Al Hydrox/Mg Hydrox/Simethicone 30 ml ONCE ONCE PO 09/30/21 14:00 09/30/21 14:01 DC 09/30/21 13:55 30 ML Aspirin 324 mg ONCE ONCE PO 09/30/21 11:00 09/30/21 11:01 DC 09/30/21 10:57 324 MG Iohexol 100 ml ONCE ONCE IV 09/30/21 14:30 09/30/21 14:31 DC 09/30/21 14:44 77 ML Ketorolac Tromethamine 15 mg ONCE ONCE IVP 09/30/21 13:00 09/30/21 13:01 DC 09/30/21 13:09 15 MG Lidocaine HCl 15 ml ONCE ONCE PO 09/30/21 14:00 09/30/21 14:01 DC 09/30/21 13:55 15 ML Nitroglycerin 0.4 mg UD PRN SL 09/30/21 11:00 09/30/21 17:13 DC 09/30/21 11:02 0.4 MG Ondansetron HCl 4 mg ONCE ONCE IVP 09/30/21 14:00 09/30/21 14:01 DC 09/30/21 13:57 4 MG Orphenadrine Citrate 60 mg ONCE ONCE IV 09/30/21 13:00 09/30/21 13:01 DC 09/30/21 13:11 60 MG Sodium Chloride 10 ml NEEDED PRN IV 09/30/21 14:30 09/30/21 14:44 10 ML Sodium Chloride 100 ml ONCE ONCE IV 09/30/21 14:30 09/30/21 14:31 DC 09/30/21 14:44 80 ML Sodium Chloride 1,000 ml @ 0 mls/hr Q0M ONCE IV 09/30/21 12:00 09/30/21 12:01 DC 09/30/21 12:02 1,000 MLS/HR Vital Signs/I&O 09/30/21 09/30/21 10:26 10:26 Temp 36.9 36.9 Pulse 79 79 Resp 20 20 B/P (MAP) 185/88 185/88 (120) Pulse Ox 96 96 O2 Delivery Room Air Room Air Blood Pressure Mean: 120 Progress Progress Note #1: Time: 12:00 Progress Note Patient reports chest pain improved from 8/10 down to 4/10 after nitroglycerin x2. Nitroglycerin did not improve her back pain. Initial work-up is unremarkable except for questionable pulmonary infiltrate. CRP and D-dimer are being added to the work-up. We will also repeat a troponin at 1230. Creatinine and calcium were elevated from baseline. We will give her a liter of normal saline to address these lab abnormalities. Progress Note #2: Time: 15:42 Progress Note Nothing other than nitroglycerin seemed to improve her pain. Toradol and Norflex were used to treat musculoskeletal pain without improvement. GI cocktail with Zofran and Pepcid were used to treat possible GI source. This likewise did not improve her pain. Patient declined any further treatment for her pain. I discussed the case with Dr. Kohli who agreed with admission for observation. D-dimer was negative. CT angiogram was obtained to evaluate the aorta. It was unremarkable. Initial ECG Impression Date: Sep 30, 2021 Initial ECG Impression Time: 11:10 Initial ECG Rate: 73 Initial ECG Rhythm: Normal Sinus Comment Sinus rhythm with no ST elevation or depression. No abnormal intervals or axis deviation. Diagnostic Imaging Diagonstic Imaging: Xray Plain Films/CT/US/NM/MRI: chest Comments NAME: BRYSON ROBB [facility] REC#: [id number] PT STATUS: ADM Jolie : 1955 PHYSICIAN: RADHA HEARD MD ADMIT DATE: 09/30/21 Signed Date of Exam:09/30/21 CHEST 1 VIEW, AP/PA ONLY CLINICAL INDICATIONS: Patient with chest pain. EXAM: Portable chest x-ray upright view. COMPARISON: Chest x-ray dated 07/05/2021. FINDINGS: Lungs/pleura: There is interval development of subtle airspace opacities and curvilinear opacities in right lung bases, may represent minimal atelectasis versus infiltrate otherwise, lungs are clear. There is no pneumothorax. There is no pleural effusion. Mediastinum: Unremarkable. Pulmonary vasculature: Unremarkable. Heart: Unremarkable. Bones/extrathoracic soft tissue: Unremarkable. IMPRESSION: Is interval development of minimal right basilar atelectasis versus infiltrates. Dictated by: Dictated on workstation # [id number] Dict: 09/30/21 1128 Trans: 09/30/211711 CVB [id number] Interpreted by: MISHEL DAN MD Electronically signed by: MISHEL DAN MD 09/30/211711 Diagonstic Imaging: CT Plain Films/CT/US/NM/MRI: chest Comments NAME: BRYSON ROBB [facility] REC#: [id number] PT STATUS: REG ER : 1955 PHYSICIAN: RADHA HEARD MD ADMIT DATE: 09/30/21/ER Signed Date of Exam:09/30/21 CT ANGIO CHEST W PROCEDURE: CT angiography of the chest with contrast. TECHNIQUE: Multiple contiguous axial images were obtained through the chest after uneventful bolus administration of intravenous contrast. 3D reconstructed CTA MIP acquisitions were also performed. Auto Exposure Controls were utilized during the CT exam to meet ALARA standards for radiation dose reduction. INDICATION: Back pain for 2 weeks. CORRELATION is made with prior CT from 08/16/2019. The ascending, aortic arch and descending thoracic aorta all demonstrate normal caliber. There is no dissection identified. Pulmonary arterial system is without thromboembolism. No pericardial or pleural fluid is identified. No axillary lymphadenopathy is identified. There are enlarged lymph nodes in the mediastinum paratracheal location which appear to be slightly smaller when compared with prior CT from 2019. No hilar lymphadenopathy is identified. Pulmonary parenchymal evaluation does show some scarring or atelectasis in the lingula. No infiltrates, nodules or masses are seen. Peripherally enhancing lesion in the dome of the right lobe of the liver is noted and suggestive of a hemangioma. IMPRESSION: 1. No evidence of acute aortic disease or pulmonary embolism. 2. Improvement in mediastinal lymphadenopathy when compared with study from 2 years earlier. 3. No acute feature is detected. Dictated by: Dictated on workstation # [id number] Dict: 09/30/21 1450 Trans: 09/30/21 1600 ACB [id number] Interpreted by: JUDI HUNT MD Electronically signed by: JUDI HUNT MD 09/30/21 1600 Departure Communication (Admissions) Time/Spoke to Admitting Phy: 15:27 Dr. Easley Time/Spoke to Consulting Phy: 15:20 Dr. Kohli Impression Primary Impression: Chest pain Qualified Codes: R07.9 - Chest pain, unspecified Additional Impressions: Mid back pain Coronary artery disease Qualified Codes: I25.10 - Atherosclerotic heart disease of redding coronary artery without angina pectoris Disposition: ADMITTED INPATIENT Condition: Improved Admissions Decision to Admit Reason: Admit from ER (General) Decision to Admit/Date: Sep 30, 2021 Time/Decision to Admit Time: 15:20 Departure-Patient Inst. Referrals: [facility] (PCP/Family) Primary Care Physician Copy Copies To 1: ISMAEL FISCHER JOSHUA T MD Sep 30, 2021 12:03
[2021-09-30] MEDS ORDERED: ORPHENADRINE 60 MG/2 ML (NORFLEX) AMP (ED ONLY) IV ONE (13:00)
[2021-09-30] MEDS ORDERED: KETOROLAC 30 MG/ML VIAL IVP ONE (13:00)
[2021-09-30] MEDS ORDERED: FAMOTIDINE 20MG/2ML IV (PEPCID) IV STA (13:48)
[2021-09-30] MEDS ORDERED: LIDOCAINE 2% VISCOUS 15 ML UDC PO ONE (14:00)
[2021-09-30] MEDS ORDERED: ANTACID SUSP 30 ML UDC (MYLANTA) PO ONE (14:00)
[2021-09-30] MEDS ORDERED: ONDANSETRON 4 MG/2 ML (SDV) Z0FRAN IVP ONE (14:00)
[2021-09-30] MEDS ORDERED: HOLD METFORMIN - RECEIVED CONTRAST 20 ML VIAL IV SCH (14:30)
[2021-09-30] MEDS ORDERED: IOHEXOL 350 MG/ML 100 ML (OMNIPAQUE 350) VIAL IV ONE (14:30)
[2021-09-30] MEDS ORDERED: CATHETER FLUSH 10 ML SYR IV PRN (14:30)
[2021-09-30] MEDS ORDERED: NS 100 ML (IVPB) BAG IV ONE (14:30)
--- NOTE | 2021-09-30 14:58 | Diagnostic Imaging Report ---
PROCEDURE: CT angiography of the chest with contrast. TECHNIQUE: Multiple contiguous axial images were obtained through the chest after uneventful bolus administration of intravenous contrast. 3D reconstructed CTA MIP acquisitions were also performed. Auto Exposure Controls were utilized during the CT exam to meet ALARA standards for radiation dose reduction. INDICATION: Back pain for 2 weeks. CORRELATION is made with prior CT from 08/16/2019. The ascending, aortic arch and descending thoracic aorta all demonstrate normal caliber. There is no dissection identified. Pulmonary arterial system is without thromboembolism. No pericardial or pleural fluid is identified. No axillary lymphadenopathy is identified. There are enlarged lymph nodes in the mediastinum paratracheal location which appear to be slightly smaller when compared with prior CT from 2019. No hilar lymphadenopathy is identified. Pulmonary parenchymal evaluation does show some scarring or atelectasis in the lingula. No infiltrates, nodules or masses are seen. Peripherally enhancing lesion in the dome of the right lobe of the liver is noted and suggestive of a hemangioma. IMPRESSION: 1. No evidence of acute aortic disease or pulmonary embolism. 2. Improvement in mediastinal lymphadenopathy when compared with study from 2 years earlier. 3. No acute feature is detected. Dictated by: Dictated on workstation # [id number]
--- NOTE | 2021-09-30 15:23 | Consultation-Cardiology ---
HPI-Cardiology Cardiology Consultation: Date of Consultation 09/30/21 Time Seen by a Provider: 15:15 Date of Admission 09-30-21 Attending Physician Admitting Physician [place] Consulting Physician Stephania Kohli MD HPI: Chief Complaint: Chest pain Ms. Ray is a 66 yr old female being admitted from the ED with c/o CP. She reports 2 days ago she developed back pain which radiates through to the left side of her chest. She reports it is constant. She describes it as a feeling of a knife in her back. She states it is somewhat worse with movement. She reports intermittent SOB. She reports some nausea and diaphoresis. She reports she herself is scared it is d/t her stents closing up. She states she is afraid to go to sleep because she is worried about her heart. She reports she has a non-healing wound to her right foot for which she is to see Dr. Sarmiento later this week for possibly more surgery d/t osteomylitis. She denies any fever or chills. Review of Systems-Cardiology Review of Systems Constitutional: No chills, No fever; malaise, tiredness Ears/Nose/Throat: No epistaxis, No recent hearing loss Respiratory: As described under HPI Cardiovascular: As described under HPI Gastrointestinal: As described under HPI Genitourinary: No hematuria Musculoskeletal: other (right foot pain) Skin: other (wound to right foot) Psychiatric/Neurological: No anxiety, No depression, No focal weakness Hematologic: No bleeding abnormalities NHW-Wwadm[facility] Hx Patient Social History 2nd Hand Smoke Exposure: Yes Have you traveled recently?: No Alcohol Use?: No Pt feels they are or have been: No Immunizations Up To Date Tetanus Booster (TDap): Unknown Date of Pneumonia Vaccine: Oct 15, 2018 Date of Influenza Vaccine: Jul 15, 2021 Past Medical History PMH As described under Assessment. Family Medical History Family Medical History: She reports her mother had CAD, CVA. She reports her father had HTN. She reports 2 brothers who havd CAD. Family History: 19 FATHER, Diabetes mellitus Hypertension Lung c 19 MOTHER, Diabetes mellitus Cardiovascular disease Completed stroke Myocardial infarction FH: breast cancer G8 BROTHER Diabetes mellitus Cardiovascular disease G8 BROTHER Cardiovascular disease G8 SISTER Diabetes mellitus Relation not specified for: FH: brain tumor FH: lung cancer FHx: peripheral neuropathy Neuro Allergies and Home Medications Allergies Coded Allergies: No Known Drug Allergies (Unverified , 08/21/21) Patient Home Medication List Aspirin (Aspirin) 81 Mg Tab.chew, 81 MG PO DAILY, (Reported) Entered as Reported by: AMY TODD on 04/27/18 1329 Calcium Carbonate (Tums) 300 Mg Tab.chew, 300-600 MG PO PRN PRN for HEARTBURN, (Reported) Entered as Reported by: DAPHNEY SHIRLEY on 09/06/20 1002 Clopidogrel Bisulfate (Clopidogrel) 75 Mg Tablet, 75 MG PO DAILY, (Reported) Entered as Reported by: AMY TODD on 08/16/19 1445 Dicyclomine HCl (Dicyclomine HCl) 20 Mg Tablet, 20 MG PO Q6H PRN for abdominal pain Prescribed by: TERRI SOUSA on 06/22/21 1143 Docusate Sodium (Stool Softener) 100 Mg Capsule, 100-200 MG PO BID PRN for CONSTIPATION-1ST LINE, (Reported) Entered as Reported by: DAPHNEY SHIRLEY on 09/06/20 1002 Doxazosin Mesylate (Doxazosin Mesylate) 1 Mg Tablet, 1 MG PO HS, (Reported) Entered as Reported by: ANASTASIIA SMITH on 04/29/21 1203 Gabapentin (Neurontin) 300 Mg Capsule, 900 MG PO TID, (Reported) Entered as Reported by: ANIYA ISABEL on 04/02/20 1448 Glimepiride (Glimepiride) 4 Mg Tablet, 4 MG PO BID, (Reported) Entered as Reported by: JACQUES SHANNON on 12/05/17 0950 Hydralazine HCl (Hydralazine HCl) 50 Mg Tablet, 50 MG PO TID, (Reported) Entered as Reported by: ANASTASIIA SMITH on 02/04/18 1521 Hydrocodone/Acetaminophen (Hydrocodone-Acetamin 5-325 mg) 1 Each Tablet, 1 EACH PO Q4H PRN for PAIN-MODERATE (5-7) Prescribed by: NIKHIL ROMERO on 08/21/21 0907 Insulin Determir (Levemir) 1,000 Units/10 Ml Soln, 20 UNITS SQ HS, (Reported) Entered as Reported by: VALERIA FAJARDO on 08/14/21 1105 Insulin NPH Human Isophane (NovoLIN N Flexpen) 100 Unit/1 Ml Insuln.pen, 13 UNIT SQ TID, (Reported) Entered as Reported by: VIANEY LYMAN on 07/05/21 1013 Liraglutide (Victoza 3-Rigo) 0.6 Mg/0.1 Ml Pen.injctr, 1.8 MG SQ HS, (Reported) Entered as Reported by: DAPHNEY SHIRLEY on 11/27/20 0958 Metoprolol Succinate (Metoprolol Succinate) 200 Mg Tab.er.24h, 200 MG PO DAILY, (Reported) Entered as Reported by: ANASTASIIA SMITH on 02/04/18 1521 Ondansetron (Ondansetron Odt) 4 Mg Tab.rapdis, 4 MG PO Q8H PRN for nausea Prescribed by: TERRI SOUSA on 06/22/21 1143 Pantoprazole Sodium (Pantoprazole Sodium) 20 Mg Tablet.dr, 20 MG PO DAILY, (Reported) Entered as Reported by: AMY TODD on 08/16/19 1445 Pnv No.122/Iron/Folic Acid ( Multi Tablet) 1 Each Tablet, 1 EACH PO DAILY, (Reported) Entered as Reported by: ANASTASIIA SMITH on 04/29/21 1209 Tramadol HCl (Tramadol HCl) 50 Mg Tablet, 50 MG PO TID PRN for PAIN-MODERATE (5- 7), (Reported) Entered as Reported by: BRYSON FELTON on 04/26/16 1128 Physical Exam-Cardiology Physical Exam Vital Signs/I&O 09/30/21 09/30/21 10:26 10:26 Temp 36.9 36.9 Pulse 79 79 Resp 20 20 B/P (MAP) 185/88 185/88 (120) Pulse Ox 96 96 O2 Delivery Room Air Room Air Capillary Refill : Less Than 3 Seconds Constitutional: AAO x 3, well-developed, well-nourished HEENT: PERRL, hearing is well preserved, oral hygience is good Neck: No carotid bruit; carotid pulses are 2 + bilaterally Respiratory: No accessory muscle use, No respiratory distress; chest expansion is symmetric, chest is bilaterally symmetric, lungs clear to auscultation Cardiovascular: regular rate-rhythm; No JVD; S1 and S2 Gastrointestinal: soft, round; No guarding; audible bowel sounds Extremities: other (right partial foot amputation; dressing in place and not removed), no lower extremity edema bilateral Neurologic/Psychiatric: grossly intact (moves all extremities) Skin: other Data Review Labs Laboratory Tests 09/30/21 10:32: White Blood Count 8.2, Red Blood Count 3.76L, Hemoglobin 10.9L, Hematocrit 34L, Mean Corpuscular Volume 90, Mean Corpuscular Hemoglobin 29, Mean Corpuscular Hemoglobin Concent 32, Red Cell Distribution Width 14.0, Platelet Count 187, Mean Platelet Volume 9.2, Immature Granulocyte % (Auto) 0, Neutrophils (%) (Auto) 67, Lymphocytes (%) (Auto) 25, Monocytes (%) (Auto) 7, Eosinophils (%) (Auto) 1, Basophils (%) (Auto) 1, Neutrophils # (Auto) 5.5, Lymphocytes # (Auto) 2.0, Monocytes # (Auto) 0.6, Eosinophils # (Auto) 0.1, Basophils # (Auto) 0.0, Immature Granulocyte # (Auto) 0.0, Prothrombin Time 13.2, INR Comment 1.0, Activated Partial Thromboplast Time 48H, D-Dimer < 0.27, Sodium Level 138, Pota ssium Level 4.0, Chloride Level 100, Carbon Dioxide Level 24, Anion Gap 14, Blood Urea Nitrogen 29H, Creatinine 1.31H, Estimat Glomerular Filtration Rate 45, BUN/Creatinine Ratio 22, Glucose Level 87, Calcium Level 12.7H, Corrected Calcium 12.5H, Magnesium Level 2.1, Total Bilirubin 0.4, Aspartate Amino Transf (AST/SGOT) 21, Alanine Aminotransferase (ALT/SGPT) 27, Alkaline Phosphatase 89, Myoglobin 53.7, Troponin I < 0.028, C-Reactive Protein High Sensitivity 2.56H, Total Protein 8.2, Albumin 4.2 09/30/21 12:30: Troponin I < 0.028 Radiology NAME: BRYSON RAY [facility] REC#: [id number] PT STATUS: REG ER : 1955 PHYSICIAN: RADHA HEARD MD ADMIT DATE: 09/30/21/ER Draft Date of Exam:09/30/21 CHEST 1 VIEW, AP/PA ONLY CLINICAL INDICATIONS: Patient with chest pain. EXAM: Portable chest x-ray upright view. COMPARISON: Chest x-ray dated 07/05/2021. FINDINGS: Lungs/pleura: There is interval development of subtle airspace opacities and curvilinear opacities in right lung bases, may represent minimal atelectasis versus infiltrate otherwise, lungs are clear. There is no pneumothorax. There is no pleural effusion. Mediastinum: Unremarkable. Pulmonary vasculature: Unremarkable. Heart: Unremarkable. Bones/extrathoracic soft tissue: Unremarkable. IMPRESSION: Is interval development of minimal right basilar atelectasis versus infiltrates. Dictated on workstation # [id number] Dict: 09/30/21 1128 Trans: 09/30/21 1134 CV [id number] Interpreted by: MISHEL DAN MD Electronically signed by: NAME: BRYSON RAY [facility] REC#: [id number] PT STATUS: REG ER : 1955 PHYSICIAN: RADHA HEARD MD ADMIT DATE: 09/30/21/ER Draft Date of Exam:09/30/21 CT ANGIO CHEST W PROCEDURE: CT angiography of the chest with contrast. TECHNIQUE: Multiple contiguous axial images were obtained through the chest after uneventful bolus administration of intravenous contrast. 3D reconstructed CTA MIP acquisitions were also performed. Auto Exposure Controls were utilized during the CT exam to meet ALARA standards for radiation dose reduction. INDICATION: Back pain for 2 weeks. CORRELATION is made with prior CT from 08/16/2019. The ascending, aortic arch and descending thoracic aorta all demonstrate normal caliber. There is no dissection identified. Pulmonary arterial system is without thromboembolism. No pericardial or pleural fluid is identified. No axillary lymphadenopathy is identified. There are enlarged lymph nodes in the mediastinum paratracheal location which appear to be slightly smaller when compared with prior CT from 2019. No hilar lymphadenopathy is identified. Pulmonary parenchymal evaluation does show some scarring or atelectasis in the lingula. No infiltrates, nodules or masses are seen. Peripherally enhancing lesion in the dome of the right lobe of the liver is noted and suggestive of a hemangioma. IMPRESSION: 1. No evidence of acute aortic disease or pulmonary embolism. 2. Improvement in mediastinal lymphadenopathy when compared with study from 2 years earlier. 3. No acute feature is detected. Dictated on workstation # [id number] Dict: 09/30/21 1450 Trans: 09/30/21 1457 [facility] [id number] Interpreted by: JUDI HUNT MD Electronically signed by: ECG Impression ECG Initial ECG Rhythm: Normal Sinus A/P-Cardiology Assessment/Admission Diagnosis Chest pain - undetermined etiology CAD - Last card cath of 03/08/19: 1) Patent previously place stents (January 2019): 2.25x12 Xience to ostial and prox RI, patent Alp Xience 2.5x8 stent to prox LAD and Alp Xience 3x18 stent in mid RCA; 2) Successful stenting of the prox LCX with overlapping 2.5x15 (distal) and 2.75x8 (prox) Alp Xience stents and balloon angioplasty of mid LCX; 3) LVEDP 13 mmHg and LVEF 65-70% - Echocardiogram of 11-30-20 LVEF 60-65%. LA mildly dilated. Mild to mod calcified mitral annulus. Aortic valve thickening, consistent with sclerosis. HTN - uncontrolled Carotid dz - Carotid u/s of 03/04/19 showed minimal carotid plaque PAD. - Peripheral angio of May 2016: Bilateral ostial/proximal anterior tibial artery occlusions with reconstitution of the dorsalis pedis via collaterals. S/p balloon angioplasty of the R ant tib by Dr Li at 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 Sarmiento in 2019 and 2020 - Chronic, recurrent diabetic ulcer of the R great toe, managed by Dr Sarmiento - Recurrent non-healing of the right foot, partial foot amputation, reports osteomylitis - manged by Dr. 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 We have discussed the procedure, risks, benefits and potential complications of cardiac cath with possible ad hoc coronary intervention. She provides informed consent. We will proceed tomorrow or sooner if needed Continue ASA and Plavix Continue antihypertensive regimen Management of foot wound is per medical services Monitor lab closely Further recs will be based on her hospital course We would like to thank medical services for this consult DUANE CAMPBELL Sep 30, 2021 15:23
[2021-09-30] MEDS ORDERED: PANTOPRAZOLE 40 MG (PROTONIX) TAB PO NR (16:00)
[2021-09-30] MEDS ORDERED: ONDANSETRON 4 MG/2 ML (SDV) Z0FRAN IVP PRN (17:15)
[2021-09-30] MEDS ORDERED: NITROGLYCERIN 0.4 MG SL TABS BTL 25'S SL PRN (17:15)
[2021-09-30] MEDS ORDERED: morphine INJ 4 MG/ML 1 ML (VIAL/SYRINGE) IV PRN (17:15)
--- NOTE | 2021-09-30 17:32 | Consultation-Cardiology ---
HPI-Cardiology Cardiology Consultation: Date of Consultation 09/30/21 Time Seen by a Provider: 17:10 Date of Admission Attending Physician Nils Easley MD Admitting Physician [place] Consulting Physician DEBORA CARO MD, MA, FACP, FACC, [facility] [place], [facility] HPI: Chief Complaint: Chest pain Ms. Ray is a 66 yr old female being admitted from the ED with c/o CP. She reports 2 days ago she developed back pain which radiates through to the left side of her chest. She reports it is constant. She describes it as a feeling of a knife in her back. She states it is somewhat worse with movement. She reports intermittent SOB. She reports some nausea and diaphoresis. She reports she herself is scared it is d/t her stents closing up. She states she is afraid to go to sleep because she is worried about her heart. She reports she has a non-healing wound to her right foot for which she is to see Dr. Sarmiento later this week for possibly more surgery d/t osteomylitis. She denies any fever or chills. Review of Systems-Cardiology Review of Systems Constitutional: No chills, No fever; malaise, tiredness Ears/Nose/Throat: No epistaxis, No recent hearing loss Respiratory: As described under HPI Cardiovascular: As described under HPI Gastrointestinal: As described under HPI Genitourinary: No hematuria Musculoskeletal: other (right foot pain) Skin: other (wound to right foot) Psychiatric/Neurological: No anxiety, No depression, No focal weakness Hematologic: No bleeding abnormalities QYO-Esxknh-Ufasri Hx Patient Social History 2nd Hand Smoke Exposure: Yes Have you traveled recently?: No Alcohol Use?: No Pt feels they are or have been: No Immunizations Up To Date Tetanus Booster (TDap): Unknown Date of Pneumonia Vaccine: Oct 15, 2018 Date of Influenza Vaccine: Jul 15, 2021 Past Medical History PMH As described under Assessment. Family Medical History Family Medical History: She reports her mother had CAD, CVA. She reports her father had HTN. She reports 2 brothers who havd CAD. Family History: Cardiovascular disease 19 MOTHER, G8 BROTHER G8 BROTHER Completed stroke 19 MOTHER, Diabetes mellitus 19 FATHER, 19 MOTHER, G8 BROTHER G8 SISTER FH: brain tumor FH: breast cancer 19 MOTHER, FH: lung cancer FHx: peripheral neuropathy Hypertension 19 FATHER, Lung c 19 FATHER, Myocardial infarction 19 MOTHER, Neuro Allergies and Home Medications Allergies Coded Allergies: No Known Drug Allergies (Unverified , 08/21/21) Patient Home Medication List Home Medication List Reviewed: Yes Aspirin (Aspirin) 81 Mg Tab.chew, 81 MG PO DAILY, (Reported) Entered as Reported by: AMY TODD on 04/27/18 1329 Calcium Carbonate (Tums) 300 Mg Tab.chew, 300-600 MG PO PRN PRN for HEARTBURN, (Reported) Entered as Reported by: DAPHNEY SHIRLEY on 09/06/20 1002 Clopidogrel Bisulfate (Clopidogrel) 75 Mg Tablet, 75 MG PO DAILY, (Reported) Entered as Reported by: AMY TODD on 08/16/19 1445 Dicyclomine HCl (Dicyclomine HCl) 20 Mg Tablet, 20 MG PO Q6H PRN for abdominal pain Prescribed by: TERRI SOUSA on 06/22/21 1143 Docusate Sodium (Stool Softener) 100 Mg Capsule, 100-200 MG PO BID PRN for CONSTIPATION-1ST LINE, (Reported) Entered as Reported by: DAPHNEY SHIRLEY on 09/06/20 1002 Doxazosin Mesylate (Doxazosin Mesylate) 1 Mg Tablet, 1 MG PO HS, (Reported) Entered as Reported by: ANASTASIIA SMITH on 04/29/21 1203 Gabapentin (Neurontin) 300 Mg Capsule, 900 MG PO TID, (Reported) Entered as Reported by: ANIYA ISABEL on 04/02/20 1448 Glimepiride (Glimepiride) 4 Mg Tablet, 4 MG PO BID, (Reported) Entered as Reported by: JACQUES SHANNON on 12/05/17 0950 Hydralazine HCl (Hydralazine HCl) 50 Mg Tablet, 50 MG PO TID, (Reported) Entered as Reported by: ANASTASIIA SMITH on 02/04/18 1521 Hydrocodone/Acetaminophen (Hydrocodone-Acetamin 5-325 mg) 1 Each Tablet, 1 EACH PO Q4H PRN for PAIN-MODERATE (5-7) Prescribed by: NIKHIL ROMERO on 08/21/21 0907 Insulin Determir (Levemir) 1,000 Units/10 Ml Soln, 20 UNITS SQ HS, (Reported) Entered as Reported by: VALERIA FAJARDO on 08/14/21 1105 Insulin NPH Human Isophane (NovoLIN N Flexpen) 100 Unit/1 Ml Insuln.pen, 13 UNIT SQ TID, (Reported) Entered as Reported by: VIANEY LYMAN on 07/05/21 1013 Liraglutide (Victoza 3-Rigo) 0.6 Mg/0.1 Ml Pen.injctr, 1.8 MG SQ HS, (Reported) Entered as Reported by: DAPHNEY SHIRLEY on 11/27/20 0958 Metoprolol Succinate (Metoprolol Succinate) 200 Mg Tab.er.24h, 200 MG PO DAILY, (Reported) Entered as Reported by: ANASTASIIA SMITH on 02/04/18 1521 Ondansetron (Ondansetron Odt) 4 Mg Tab.rapdis, 4 MG PO Q8H PRN for nausea Prescribed by: TERRI SOUSA on 06/22/21 1143 Pantoprazole Sodium (Pantoprazole Sodium) 20 Mg Tablet.dr, 20 MG PO DAILY, (Reported) Entered as Reported by: AMY TODD on 08/16/19 1445 Pnv No.122/Iron/Folic Acid ( Multi Tablet) 1 Each Tablet, 1 EACH PO DAILY, (Reported) Entered as Reported by: ANASTASIIA SMITH on 04/29/21 1209 Tramadol HCl (Tramadol HCl) 50 Mg Tablet, 50 MG PO TID PRN for PAIN-MODERATE (5- 7), (Reported) Entered as Reported by: BRYSON FELTON on 04/26/16 1128 Physical Exam-Cardiology Physical Exam Vital Signs/I&O 09/30/21 09/30/21 10:26 10:26 Temp 36.9 36.9 Pulse 79 79 Resp 20 20 B/P (MAP) 185/88 185/88 (120) Pulse Ox 96 96 O2 Delivery Room Air Room Air Capillary Refill : Less Than 3 Seconds Constitutional: AAO x 3, well-developed, well-nourished HEENT: PERRL, hearing is well preserved, oral hygience is good Neck: No carotid bruit; carotid pulses are 2 + bilaterally Respiratory: No accessory muscle use, No respiratory distress; chest expansion is symmetric, chest is bilaterally symmetric, lungs clear to auscultation Cardiovascular: regular rate-rhythm; No JVD; S1 and S2 Gastrointestinal: soft, round; No guarding; audible bowel sounds Extremities: other (right partial foot amputation; dressing in place and not removed), no lower extremity edema bilateral Neurologic/Psychiatric: grossly intact (moves all extremities) Skin: other Data Review Labs Laboratory Tests 09/30/21 10:32: White Blood Count 8.2, Red Blood Count 3.76L, Hemoglobin 10.9L, Hematocrit 34L, Mean Corpuscular Volume 90, Mean Corpuscular Hemoglobin 29, Mean Corpuscular Hemoglobin Concent 32, Red Cell Distribution Width 14.0, Platelet Count 187, Mean Platelet Volume 9.2, Immature Granulocyte % (Auto) 0, Neutrophils (%) (Auto) 67, Lymphocytes (%) (Auto) 25, Monocytes (%) (Auto) 7, Eosinophils (%) (Auto) 1, Basophils (%) (Auto) 1, Neutrophils # (Auto) 5.5, Lymphocytes # (Auto) 2.0, Monocytes # (Auto) 0.6, Eosinophils # (Auto) 0.1, Basophils # (Auto) 0.0, Immature Granulocyte # (Auto) 0.0, Prothrombin Time 13.2, INR Comment 1.0, Activated Partial Thromboplast Time 48H, D-Dimer < 0.27, Sodium Level 138, Potassium Level 4.0, Chloride Level 100, Carbon Dioxide Level 24, Anion Gap 14, Blood Urea Nitrogen 29H, Creatinine 1.31H, Estimat Glomerular Filtration Rate 45, BUN/Creatinine Ratio 22, Glucose Level 87, Calcium Level 12.7H, Corrected Calcium 12.5H, Magnesium Level 2.1, Total Bilirubin 0.4, Aspartate Amino Transf (AST/SGOT) 21, Alanine Aminotransferase (ALT/SGPT) 27, Alkaline Phosphatase 89, Myoglobin 53.7, Troponin I < 0.028, C-Reactive Protein High Sensitivity 2.56H, Total Protein 8.2, Albumin 4.2 09/30/21 12:30: Troponin I < 0.028 A/P-Cardiology Assessment/Admission Diagnosis Chest pain - undetermined etiology CAD - Last card cath of 03/08/19: 1) Patent previously place stents (January 2019): 2.25x12 Xience to ostial and prox RI, patent Alp Xience 2.5x8 stent to prox LAD and Alp Xience 3x18 stent in mid RCA; 2) Successful stenting of the prox LCX with overlapping 2.5x15 (distal) and 2.75x8 (prox) Alp Xience stents and balloon angioplasty of mid LCX; 3) LVEDP 13 mmHg and LVEF 65-70% - Echocardiogram of 11-30-20 LVEF 60-65%. LA mildly dilated. Mild to mod calcified mitral annulus. Aortic valve thickening, consistent with sclerosis. HTN - uncontrolled Carotid dz - Carotid u/s of 03/04/19 showed minimal carotid plaque PAD. - Peripheral angio of May 2016: Bilateral ostial/proximal anterior tibial artery occlusions with reconstitution of the dorsalis pedis via collaterals. S/p balloon angioplasty of the R ant tib by Dr Li at [facility] in May 2016 - Osteomylitis of three lateral toes of the right foot - amputation per Dr. Sarmiento in 2019 and 2020 - Chronic, recurrent diabetic ulcer of the R great toe, managed by Dr Sarmiento - Recurrent non-healing of the right foot, partial foot amputation, reports osteomylitis - manged by Dr. 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 We have discussed the procedure, risks, benefits and potential complications of cardiac cath with possible ad hoc coronary inte rvention. She provides informed consent. We will proceed tomorrow or sooner if needed Continue ASA and Plavix Continue antihypertensive regimen Management of foot wound is per medical services Monitor lab closely Further recs will be based on her hospital course We would like to thank medical services for this consult DEBORA CARO MD FACP FAC CCDS Sep 30, 2021 17:32
[2021-09-30] MEDS ORDERED: meTOprolol SUCCINATE 100 MG (TOPROL XL) TAB PO NR (17:45)
[2021-09-30] MEDS ORDERED: NS IV 1000 ML 1,000 ML ONE (19:21)
[2021-09-30] MEDS: inSUlin ASPART (NovoLOG) 1 UNIT/0.01 ML (CHARGE PER UNIT) SC SCH (20:26)
[2021-09-30] MEDS: LINEZOLID (ZYVOX) 600 MG TAB PO SCH (20:48)
[2021-09-30] MEDS: GABAPENTIN 300 MG (NEURONTIN) CAP PO SCH (20:49)
[2021-09-30] MEDS: hydrALAZINE (APRESOLINE) 25 MG TAB PO SCH (20:49)
[2021-10-01] VITALS (13 sets, daily range): BP systolic 148–177; BP diastolic 69–84
[2021-10-01] MEDS ORDERED: NS IV 1000 ML 1,000 ML IV SCH ×2 (06:00→13:15)
[2021-10-01] MEDS: hydrALAZINE (APRESOLINE) 25 MG TAB PO SCH ×2 (06:03→14:27)
[2021-10-01] MEDS: inSUlin ASPART (NovoLOG) 1 UNIT/0.01 ML (CHARGE PER UNIT) SC SCH ×3 (06:04→18:24)
[2021-10-01] MEDS: GABAPENTIN 300 MG (NEURONTIN) CAP PO SCH ×2 (06:04→14:27)
[2021-10-01 06:20] LABS: HEMATOCRIT 29 % (35-52); HEMOGLOBIN 9.2 g/dL (11.5-16.0); MEAN CORPUSCULAR HEMOGLOBIN 29 pg (25-34); MEAN CORPUSCULAR HGB CONC 32 g/dL (32-36); MEAN CORPUSCULAR VOLUME 91 fL (80-99); MEAN PLATELET VOLUME 9.4 fL (9.0-12.2); PLATELET COUNT 151 10^3/uL (130-400); WHITE BLOOD COUNT 7.9 10^3/uL (4.3-11.0)
[2021-10-01 06:32] LABS: PROTHROMBIN TIME PATIENT 13.1 SEC (12.2-14.7)
[2021-10-01 06:39] LABS: ALBUMIN 3.5 GM/DL (3.2-4.5); BILIRUBIN,DIRECT 0.1 MG/DL (0.0-0.3); BILIRUBIN,INDIRECT 0.2 MG/DL; BILIRUBIN,TOTAL 0.3 MG/DL (0.1-1.0); CREATININE SERUM 1.11 MG/DL (0.60-1.30); TOTAL PROTEIN 7.1 GM/DL (6.4-8.2)
[2021-10-01] MEDS ORDERED: LIDOCAINE 1% INJ 20 ML VIAL ONE (06:44)
[2021-10-01] MEDS ORDERED: HEParin (CATH LAB) 2,000 ML IV ONE (06:45)
[2021-10-01] MEDS ORDERED: meTOprolol SUCCINATE 100 MG (TOPROL XL) TAB PO SCH (09:00)
[2021-10-01] MEDS ORDERED: CLOPIDOGREL 75 MG (PLAVIX) TABLET PO SCH (09:00)
[2021-10-01] MEDS ORDERED: PANTOPRAZOLE 40 MG (PROTONIX) TAB PO SCH (09:00)
[2021-10-01] MEDS ORDERED: ASPIRIN E.C. 81 MG (ECOTRIN) TAB PO SCH (09:00)
--- NOTE | 2021-10-01 09:38 | History & Physical-Hospitalist ---
History of Present Illness HPI/Chief Complaint CC: Chest pain with back pain HPI: 66 yr old [facility] clinic pt of [facility] known to me from prior hospital stays who presented with non-specific complaints of chest pain. Hx: CAD and back pain. She was found to have areas of osteomyelitis in some toes so she will undergo an amputation in the future. She has had amputations in the past. Cardiology has been consulted for elevated troponin and will have cardiac cath today. Wound care will also evaluate the area prior to surgery. Source: patient Exam Limitations: no limitations Date Seen 10/01/21 Time Seen by a Provider: 10:00 Attending Physician Lin Farias DO [facility] Referring Physician Date of Admission Sep 30, 2021 at 15:27 Home Medications & Allergies Home Medications Reviewed patient Home Medication Reconciliation performed by pharmacy medication reconciliations video surveillance technician and/or nursing. Patients Allergies have been reviewed. Allergies Allergies Coded Allergies No Known Drug Allergies ([id number]/8/21) Past Rrwnepa-Ivtzen-Bfyhnm Hx Patient Social History Marrital Status: single Employed/Student: unemployed Tobacco Use?: No Smoking Status: Current Everyday Smoker Substance use?: Yes Substance frequency: Rarely Alcohol Use?: No Pt feels they are or have been: No Immunizations Up To Date Date of Influenza Vaccine: Jun 14, 2022 First/Initial COVID19 Vaccinat: none Second COVID19 Vaccination Ramesh: none Tetanus Booster (TDap): Unknown Hepatitis A: No Hepatitis B: No PED Vaccines UTD: No Date of Pneumonia Vaccine: Oct 15, 2018 Seasonal Allergies Seasonal Allergies: No Current Status status: No status: No Advance Directives: No Communicates: Verbally Primary Language: Amharic Preferred Spoken Language: Amharic Sensory deficits: Vision impairment Implanted or Applied Medical D: Stents Past Medical History Surgeries: Amputation, Coronary Stent, Tubal Ligation, Vascular Surgery Currently Using CPAP: No Currently Using BIPAP: No Coronary Artery Disease 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 Sexually Transmitted Disease: No HIV/AIDS: No UTI-Chronic Gall Bladder Disease Amputee, Fibromyalgia Diabetes, Insulin dep Loss of Vision: Denies Hearing Impairment: Denies Blood Disorders: No Adverse Reaction/Blood Tranf: No (N/A) Family Medical History Cardiovascular disease 19 MOTHER, G8 BROTHER G8 BROTHER Completed stroke 19 MOTHER, Diabetes mellitus 19 FATHER, 19 MOTHER, G8 BROTHER G8 SISTER FH: brain tumor FH: breast cancer 19 MOTHER, FH: lung cancer FHx: peripheral neuropathy Hypertension 19 FATHER, Lung c 19 FATHER, Myocardial infarction 19 MOTHER, Neuro No Pertinent Family Hx Review of Systems Constitutional: see HPI, malaise, weakness EENTM: no symptoms reported Respiratory: no symptoms reported Cardiovascular: chest pain Gastrointestinal: no symptoms reported Genitourinary: no symptoms reported Musculoskeletal: no symptoms reported Skin: no symptoms reported Psychiatric/Neurological: No Symptoms Reported All Other Systems Reviewed Negative Unless Noted: Yes Physical Exam Physical Exam Vital Signs Vital Signs - First Documented Capillary Refill : Less Than 3 Seconds Height, Weight, BMI Height: 5'5.50" Weight: 195lbs. 0.0oz. [id number]; 32.80 BMI Method:Stated General Appearance: No Apparent Distress, Chronically ill Eyes: Right Eye Normal Inspection, Right Eye PERRL HEENT: PERRL/EOMI, Normal ENT Inspection, Pharynx Normal, Moist Mucous Membranes Neck: Full Range of Motion, Normal Inspection, Non Tender Respiratory: Chest Non Tender, Lungs Clear, Normal Breath Sounds, No Accessory Muscle Use, No Respiratory Distress Cardiovascular: Regular Rate, Rhythm, No Edema, No Gallop, No JVD, No Murmur, Normal Peripheral Pulses Gastrointestinal: Normal Bowel Sounds, No Organomegaly, No Pulsatile Mass, Non Tender, Soft Back: Normal Inspection, No CVA Tenderness, No Vertebral Tenderness Extremity: Normal Capillary Refill, Normal Inspection, Normal Range of Motion, Non Tender, No Calf Tenderness, No Pedal Edema Neurologic/Psychiatric: Alert, Oriented x3, No Motor/Sensory Deficits, Normal Mood/Affect Skin: Normal Color, Warm/Dry, Other (right foot dressing intact) Lymphatic: No Adenopathy Results Results/Procedures Labs Laboratory Tests 09/30/21 10:32 10/01/21 05:41 Patient resulted labs reviewed. 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
[2021-10-01] MEDS: LINEZOLID (ZYVOX) 600 MG TAB PO SCH (11:39)
[2021-10-01] MEDS ORDERED: LNZ600T PO ×2 (11:50)
[2021-10-01] MEDS ORDERED: ASCO500T17 PO ×2 (11:50)
[2021-10-01] MEDS ORDERED: CHOL20003 PO ×2 (11:50)
[2021-10-01] MEDS ORDERED: ZINC220T3 PO ×2 (11:50)
[2021-10-01] MEDS ORDERED: ACHD5005 PO ×2 (11:50)
[2021-10-01] MEDS ORDERED: INSU100I14 SQ ×2 (11:54)
[2021-10-01] MEDS ORDERED: INSU100I29 SQ ×2 (12:03)
[2021-10-01] MEDS ORDERED: DEXTROSE 50% 50 ML (IMS) SYR IV NR (12:09)
[2021-10-01] MEDS ORDERED: fentaNYL INJ 100 MCG/2 ML AMP ONE (12:37)
[2021-10-01] MEDS ORDERED: MIDAZOLAM 5 MG/5 ML (VERSED) VIAL ONE (12:37)
[2021-10-01] MEDS ORDERED: PATIENT MAY USE OWN MEDS, ALL PO SCH (13:15)
--- NOTE | 2021-10-01 13:15 | Progress Note - Cardiology ---
Cardiology SOAP Progress Note Subjective: Chest and back discomfort persistent but less intense No palp or syncope No shortness of breath at rest No n/v/d Objective: I&O/Vital Signs 10/01/21 10/01/21 10/01/21 10/01/21 04:30 07:31 07:40 11:29 Temp 36.5 36.0 Pulse 71 71 72 72 Resp 18 18 20 B/P (MAP) 162/72 (102) 173/74 (107) 177/84 (115) Pulse Ox 97 94 95 O2 Delivery Room Air Room Air Room Air 09/30/21 23:59 Intake Total 1300 ml Output Total 350 ml Balance 950 ml Weight (Pounds): 195 Weight (Ounces): 0.0 Weight (Calculated Kilograms): 88.095903 Constitutional: AAO x 3, well-developed, well-nourished Respiratory: No accessory muscle use, No respiratory distress; chest expansion is symmetric, chest is bilaterally symmetric, lungs clear to auscultation Cardiovascular: regular rate-rhythm; No JVD; S1 and S2 Gastrointestional: soft, round; No guarding; audible bowel sounds Extremities: other (right partial foot amputation; dressing in place and not removed), no lower extremity edema bilateral Neurologic/Psychiatric: grossly intact (moves all extremities) Skin: other Results/Procedures: Labs Laboratory Tests 09/30/21 19:16: Glucometer 69L 10/01/21 05:41: White Blood Count 7.9, Red Blood Count 3.18L, Hemoglobin 9.2L, Hematocrit 29L, Mean Corpuscular Volume 91, Mean Corpuscular Hemoglobin 29, Mean Corpuscular Hemoglobin Concent 32, Red Cell Distribution Width 13.9, Platelet Count 151, Mean Platelet Volume 9.4, Prothrombin Time 13.1, INR Comment 1.0, Activated Partial Thromboplast Time 42H, Sodium Level 139, Potassium Level 4.0, Chloride Level 104, Carbon Dioxide Level 20L, Anion Gap 15H, Blood Urea Nitrogen 26H, Creatinine 1.11, Estimat Glomerular Filtration Rate 55, BUN/Creatinine Ratio 23, Glucose Level 72, Calcium Level 10.0, Total Bilirubin 0.3, Direct Bilirubin 0.1, Indirect Bilirubin 0.2, Aspartate Amino Transf (AST/SGOT) 22, Alanine Aminotransferase (ALT/SGPT) 25, Alkaline Phosphatase 69, Total Protein 7.1, Albumin 3.5, Triglycerides Level 146, Cholesterol Level 145, LDL Cholesterol Direct 72, VLDL Cholesterol 29, HDL Cholesterol 36L 10/01/21 06:02: Glucometer 63L 10/01/21 09:42: Glucometer 64L 10/01/21 12:14: Glucometer 73 Laboratory Tests 09/30/21 10:32 10/01/21 05:41 A/P: Assessment: Chest and back painpain - non-coronary, etiology undetermined CAD - Last card cath of 10/01/21: Mild to mod CAD. Patent previously place stents: 2.25x12 Xience to ostial and prox RI, patent Alp Xience 2.5x8 stent to prox LAD and Alp Xience, patent overlapping 2.5x15 and 2.75x8 stents in LCX, LVEDP 20 mmHg, LVEF 65% - Echocardiogram of 11-30-20 LVEF 60-65%. LA mildly dilated. Mild to mod calcified mitral annulus. Aortic valve thickening, consistent with sclerosis. HTN - uncontrolled Carotid dz - Carotid u/s of 03/04/19 showed minimal carotid plaque PAD. - Peripheral angio of May 2016: Bilateral ostial/proximal anterior tibial artery occlusions with reconstitution of the dorsalis pedis via collaterals. S/p balloon angioplasty of the R ant tib by Dr Li at [facility] in May 2016 - Osteomylitis of three lateral toes of the right foot - amputation per Dr. Sarmiento in 2019 and 2020 - Chronic, recurrent diabetic ulcer of the R great toe, managed by Dr Sarmiento - Recurrent non-healing of the right foot, partial foot amputation, reports osteomylitis - manged by Dr. 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
--- NOTE | 2021-10-01 13:43 | Cardiac Procedure Note-CS/ASA ---
Pre-Procedure Note Pre-Op Procedure Note H&P Reviewed The H&P was reviewed, patient examined and no changes noted. Date H&P Reviewed: Oct 01, 2021 Time H&P Reviewed: 12:00 Conscious Sedation Pre-Proced Time 12:00 ASA Score 3 For ASA 3 and 4: Consider anesthesia and medical clearance. Also, for patients with a history of failed moderate sedation consider anesthesia. Airway Lungs Heart ASA score ASA 1: a normal healthy patient ASA 2: a patient with a mild systemic disease (mid diabetes, controlled hypertension, obesity ASA 3: a patient with a severe systemic disease that limits activity (angina, COPD, prior Myocardial infarction) ASA 4: a patient with an incapacitating disease that is a constant threat to life (CHF, renal failure) ASA 5: a moribund patient not expected to survive 24 hrs. (ruptured aneurysm) ASA 6: a declared brain- patient whose organs are being harvested. For emergent operations, add the letter E after the classification Mallampati Classification Grade 1 Sedation Plan Analgesia, Amnesia, Plan communicated to team members, Discussed options with patient/fam, Discussed risks with patient/fam The patient is an appropriate candidate to undergo the planned procedure, sedation, and anesthesia. The patient immediately re-assessed prior to indication. DEBORA CARO MD FACP [facility] CCDS Oct 01, 2021 13:43
[2021-10-01] MEDS ORDERED: morphine INJ 10 MG/ML 1ML (SYR OR VIAL) IVP ONE (14:15)
--- NOTE | 2021-10-01 15:16 | CARDIAC CATHETERIZATION ---
DATE OF SERVICE: 09/30/2021 CARDIAC CATHETERIZATION REPORT The patient is a 66-year-old lady, who has a history of coronary artery disease. She has presented with chest discomfort and she feels that it is related to her heart. She has been very concerned about it. Cardiac catheterization was carried out today after having obtained an informed consent. DESCRIPTION OF PROCEDURE: She was brought to the cardiac catheterization laboratory in a fasting state. Right groin was prepared and draped in the usual sterile fashion. Lidocaine 1% was used for local anesthesia. Modified Seldinger technique was used to advance a 5-Gambian sheath in right femoral artery, 5-Gambian JL4 catheter was used for left coronary angiography, 5-Gambian JR4 catheter was used for right coronary angiography, 5-Gambian pigtail catheter was used for left heart catheterization and left ventricular angiography. Angiography of the right femoral artery was carried out through the sheath. The site of sheath insertion was not suitable for Mynx deployment. Manual pressure was used to achieve hemostasis. She tolerated the procedure well. HEMODYNAMICS: Left ventricular end-diastolic pressure following coronary angiography was 20 mmHg. There was no significant pressure gradient on pullback across the aortic valve. CORONARY ANGIOGRAPHY: Left main coronary artery is free of significant disease. Left anterior descending artery has a patent stent in its proximal portion. Ramus intermedius has a patent stent in its proximal portion and has a 50% stenosis in its mid portion. Left circumflex artery has a patent stent in the standard segment in its proximal portion. The mid and distal left circumflex artery have multiple 30% to 40% stenosis. The right coronary artery has a patent stent in its mid portion and has a 30% to 40% proximal and distal stenoses. LEFT VENTRICULAR ANGIOGRAPHY: Left ventricular angiography was carried out in the right anterior oblique projection only. Left ventricular ejection fraction is 65%. No distinct regional wall motion abnormalities seen. CONCLUSIONS: 1. Mild to moderate coronary artery disease. The proximal left anterior descending artery has a patent stented segment that has had Alpine Xience 2.5 x 8 mm stent placed in 2019. The ramus intermedius artery has a patent stent in its proximal portion that is known to be a 2.25 x 12 mm stent. The left circumflex artery has a patent stented segment that is known to have overlapping 2.5 x 15 mm and 2.75 x 8 mm stents. The mid right coronary artery is known to have a 3.0 x 18 mm stent in its mid portion. 2. Elevated left ventricular end-diastolic pressure. 3. Normal global left ventricular systolic function with an ejection fraction approximately 65%. DISCUSSION AND RECOMMENDATIONS: Based on results of the study, chest discomfort does not appear to be of cardiac origin. Continuing risk factor modification is recommended. Current regimen is being continued. Job ID: [id number] DocumentID: [id number] Dictated Date: 10/01/2021 13:03:34 Chain Hoist Operator Date: 10/01/2021 15:15:30 Dictated By: DEBORA CARO MD, MA, FACP, FACC,
[2021-10-01] MEDS ORDERED: NON-FORMULARY MEDICATION 1 EA EA (Hydralazine HCl 50 MG) PO SCH (21:00)
[2021-10-02] MEDS ORDERED: ASPIRIN 81 MG CHEW (CHILDREN'S ASA) PO SCH (09:00)
[2021-10-02] MEDS ORDERED: meTOprolol SUCCINATE 100 MG (TOPROL XL) TAB PO SCH (09:00)
[2021-10-02] MEDS ORDERED: CLOPIDOGREL 75 MG (PLAVIX) TABLET PO SCH (09:00)
== END 2021-10-01 18:40 | disposition home or self-care (01) ==
LOC: EDUNIT# 10:22 → ER 10:23 → 4TH 15:27
PROVIDERS: ADMIT Internal Medicine; ATTEND Internal Medicine
DX: R07.89 Other chest pain (principal); I25.10 Atherosclerotic heart disease of native coronary artery without angina pectoris; I73.9 Peripheral vascular disease, unspecified; E11.621 Type 2 diabetes mellitus with foot ulcer; E11.69 Type 2 diabetes mellitus with other specified complication; E11.40 Type 2 diabetes mellitus with diabetic neuropathy, unspecified; E11.22 Type 2 diabetes mellitus with diabetic chronic kidney disease; M86.9 Osteomyelitis, unspecified; L97.519 Non-pressure chronic ulcer of other part of right foot with unspecified severity; E66.9 Obesity, unspecified; F17.200 Nicotine dependence, unspecified, uncomplicated; M79.7 Fibromyalgia; I21.4 Non-ST elevation (NSTEMI) myocardial infarction; N18.9 Chronic kidney disease, unspecified; I12.9 Hypertensive chronic kidney disease with stage 1 through stage 4 chronic kidney disease, or unspecified chronic kidney disease; M54.6 Pain in thoracic spine; Z68.33 Body mass index [BMI] 33.0-33.9, adult; Z91.14 Patient's other noncompliance with medication regimen; Z79.82 Long term (current) use of aspirin; Z79.02 Long term (current) use of antithrombotics/antiplatelets; Z95.5 Presence of coronary angioplasty implant and graft; Z98.890 Other specified postprocedural states; Z79.4 Long term (current) use of insulin; Z79.84 Long term (current) use of oral hypoglycemic drugs; Z79.891 Long term (current) use of opiate analgesic
CPT/HCPCS: 71045; 71275; 80048; 80053; 80061; 80076; 82947 ×2; 83735; 83874; 84484; 85025; 85027; 85379; 85610 ×2; 85730 ×2; 86141; 93005 ×2; 93041; 93458; 96361; 96374; 96375; 99284; C1894; G0378; 36415

== ENCOUNTER → 2021-10-02 | Outpatient (CLI) | payer MEDICARE, OTHER ==
[~2021-10-02] MED LIST changes: +ASCO500T17 PO; +CHOL20003 PO; +INSU100I14 SQ; +LACT1CAP62 PO; +LNZ600T PO; +ZINC220T3 PO
== END ==
LOC: WOUNDCARE 10:00
PROVIDERS: ATTEND Family Medicine
DX: E11.621 Type 2 diabetes mellitus with foot ulcer (principal); I70.234 Atherosclerosis of native arteries of right leg with ulceration of heel and midfoot; L97.412 Non-pressure chronic ulcer of right heel and midfoot with fat layer exposed; T81.31XA Disruption of external operation (surgical) wound, not elsewhere classified, initial encounter; E11.65 Type 2 diabetes mellitus with hyperglycemia; M86.071 Acute hematogenous osteomyelitis, right ankle and foot; B95.62 Methicillin resistant Staphylococcus aureus infection as the cause of diseases classified elsewhere; E11.52 Type 2 diabetes mellitus with diabetic peripheral angiopathy with gangrene
CPT/HCPCS: 99213

== ENCOUNTER 2021-10-03 05:40 | Outpatient (CLI) | payer MEDICARE, OTHER ==
[~2021-10-03] VITALS: Ht 65 cm; Wt 90.8 kg
[~2021-10-03 05:40] MED LIST changes: -LACT1CAP62 PO
[2021-10-03] MEDS ORDERED: LACT1CAP62 PO (09:43)
[2021-10-04] MEDS ORDERED: ACHD5005 PO (14:03)
== END 2021-10-03 10:18 | disposition home or self-care (01) ==
LOC: PREOP 05:40
PROVIDERS: ATTEND Podiatrist Foot & Ankle Surgery
DX: Z01.818 Encounter for other preprocedural examination (principal)

== ENCOUNTER 2021-10-04 11:29 | Day surgery (SDC) | payer MEDICARE, OTHER ==
[2021-10-04] VITALS (11 sets, daily range): BP systolic 113–187; BP diastolic 54–72
[~2021-10-04] VITALS: Ht 165.1 cm; Wt 90.8 kg
[~2021-10-04 11:29] MED LIST changes: +LACT1CAP62 PO; +LACTATED RINGERS 1,000 ML IV PRN
[2021-10-04] MEDS ORDERED: DEXTROSE 50% 50 ML (IMS) SYR ONE (12:05)
[2021-10-04] MEDS ORDERED: BUPIVACAINE 0.5% 30 ML (SENSORCAINE) VIAL ONE (12:09)
[2021-10-04] MEDS ORDERED: LIDOCAINE 1% INJ 20 ML VIAL ONE (12:09)
[2021-10-04] MEDS ORDERED: DEXTROSE 50% 50 ML (IMS) SYR IV ONE (12:15)
[2021-10-04] MEDS ORDERED: LIDOCAINE PF 2% 5 ML (XYLOCAINE) VIAL ONE (12:36)
[2021-10-04] MEDS ORDERED: proPOfol 200 MG/20 ML (DIPRIVAN) VIAL IV ONE (12:36)
[2021-10-04] MEDS ORDERED: MIDAZOLAM 2 MG/2 ML (VERSED) VIAL ONE (12:36)
[2021-10-04] MEDS ORDERED: fentaNYL INJ 100 MCG/2 ML AMP ONE (12:36)
[2021-10-04] MEDS ORDERED: ONDANSETRON 4 MG/2 ML (SDV) Z0FRAN ONE (12:36)
--- NOTE | 2021-10-04 12:55 | Progress Note-Pre Operative ---
Pre-Operative Progress Note H&P Reviewed The H&P was reviewed, patient examined and no changes noted. Date Seen by Provider: Oct 04, 2021 Time Seen by Provider: 12:54 Date H&P Reviewed: Oct 04, 2021 Time H&P Reviewed: 12:54 Pre-Operative Diagnosis: Osteomyelitis right 1st metatarsal MARIBEL KIRK DPM Oct 04, 2021 12:55
[2021-10-04] MEDS ORDERED: LACTATED RINGERS 1,000 ML IV SCH (14:00)
[2021-10-04] MEDS ORDERED: HYDROcodone/APAP 5 MG/325 MG (LORTAB) TAB PO PRN (14:00)
--- NOTE | 2021-10-04 14:00 | Progress Note-Post Operative ---
Post-Operative Progess Note Surgeon (s)/Crew Boat Operator (s) Surgeon MARIBEL KIRK DPM Crew Boat Operator: none Pre-Operative Diagnosis Osteomyelitis right 1st metatarsal Post-Operative Diagnosis Same, plus abscess right foot Procedure & Operative Findings Date of Procedure 10/04/21 Procedure Performed/Findings Amputation of distal 1st metatarsal, Incision and Drainage (deep), right foot Anesthesia Type general Estimated Blood Loss Estimated blood loss (mL): 40 Specimens/Packing Specimens Removed distal 1st metatarsal Packing: Iodoform MARIBEL KIRK DPM Oct 04, 2021 13:59
[2021-10-04] MEDS ORDERED: ACHD5005 PO (14:03)
[2021-10-04] MEDS ORDERED: SEVOFLURANE (ULTANE) 15 ML INHAL SOLN ONE (14:09)
[2021-10-04] MEDS ORDERED: ONDANSETRON 4 MG/2 ML (SDV) Z0FRAN IVP PRN (14:15)
[2021-10-04] MEDS ORDERED: morphine INJ 10 MG/ML 1ML (SYR OR VIAL) IVP ONE (14:15)
--- NOTE | 2021-10-04 14:46 | Anesthesia-General Post-Op ---
General Patient Condition Mental Status/LOC: Same as Preop Cardiovascular: Satisfactory Nausea/Vomiting: Absent Respiratory: Satisfactory Pain: Controlled Complications: Absent Post Op Complications Complications None Follow Up Care/Instructions Patient Instructions None needed. Anesthesia/Patient Condition Patient Condition Patient is doing well, no complaints, stable vital signs, no apparent adverse anesthesia problems. ARI LAMBERT DO Oct 04, 2021 14:46
--- NOTE | 2021-10-04 15:35 | Diagnostic Imaging Report ---
INDICATION: Status post surgery. EXAMINATION: Right foot from 10/04/2021. COMPARISON: 05/06/2021. FINDINGS: Two views of the foot. There is gauze-like material overlying the forefoot which limits evaluation of the underlying structures. There has been interval osteotomy along the distal portion of the first metatarsal since previous imaging. There are amputations of all toes and metatarsal heads. No acute fractures or dislocations appreciated. IMPRESSION: 1. Postoperative findings as above. Dictated by: Dictated on workstation # [id number]
--- NOTE | 2021-10-04 15:49 | Physical Therapy Ortho Eval ---
PT Orthopedic Evaluation Type of Surgery Amputation of distal 1st metatarsal, Prior Level of Function Current Living Status: Spouse Locomotion (Upon Admit): Independent, Front Wheeled Walker (said she used one sometimes) Subjective Subjective Patient in bed pre tx, agrees to PT, has no complaints of pain. Blood has soaked through her bandage, nurse comes in and changes it. Entry Into Home: Stairs With Railing Steps Into Home: 2 Motor Control Motor Control: Motor Control WNL ROM ROM: WFL Strength Strength: WFL Transfer SCALE: Activities may be completed with or without assistive devices. 7-Patllvqtzk-wlnovnr completes the activity by him/herself with no assistance from a helper. 5-Set-up or Clean-up Assistance-helper sets up or cleans up; patient completes activity. [place] assists only prior to or following the activity. 4-Supervision or Touching Assistance-helper provides verbal cues and/or touching/steadying and/or contact guard assistance as patient completes activity. Assistance may be provided throughout the activity or intermittently. 3-Partial/Moderate Assistance-helper does LESS THAN HALF the effort. Bur[place]ett lifts, holds or supports trunk or limbs, but provides less than half the effort. 2-Substantial/Maximal Assistance-helper does MORE THAN HALF the effort. [place] lifts or holds trunk or limbs and provides more than half the effort. 4-Yhbvwtrie-xxjryc does ALL the effort. Patient does none of the effort to complete the activity. Or, the assistance of 2 or more helpers is required for the patient to complete the activity. If activity was not attempted, code reason: 7-Patient Refused. 9-Not Applicable-not attempted and the patient did not perform the activity before the current illness, exacerbation or injury. 10-Not Attempted due to Environmental Limitations-(lack of equipment, weather restraints, etc.). 88-Not Attempted due to Medical Conditions or Safety Concerns. Transfers (B, C, W/C) (QC): 4 Gait Gait Assistive Device: FWW Right Lower Extremity: Right Weight Bearing Status RLE: Non Weight Bearing Left Lower Extremity: Left Weight Bearing Status LLE: Full Weight Bearing Other Weight Bearing Inst.: heel contact for balance and transfers on right onl y Gait (QC): 4 Distance: 50' Gait Level of Assist: 4 Summary/Comments Patient can ambulate 50' with a rolling walker with SBA, she also went up and down 1 step using a rolling walker with SBA and cues for foot placement. Patient is totally non-compliant with NWB on the right foot even with cues to correct it. Treatment Rendered Treatment: Therapeutic Exercises, Gait Train, Step Train Exercise Instruction: Quad Sets, Heel Slides Assessment/Goals Goal Time Frame: 1 Visit Understands HEP: Yes Safe Ambulation: No non-compliant with weight bearing restriction. After ambulation blood had soaked through bandage again, nurse changes again. Plan Treatment Plan: Discharge PT/Family Agrees to Plan: Yes Time Time In: 1524 Time Out: 1540 Total Billed Treatment Time: 16 Billed Treatment Time 1 visit RAMU 16' FAVIOLA MEZA PT Oct 04, 2021 15:49
--- NOTE | 2021-10-04 20:39 | OPERATIVE REPORT ---
DATE OF SERVICE: 10/04/2021 SURGEON: Tracey Kirk DPM. PREOPERATIVE DIAGNOSIS: Osteomyelitis with abscess, right first metatarsal area. POSTOPERATIVE DIAGNOSIS: Osteomyelitis with abscess, right first metatarsal area. PROCEDURES: 1. Excision of distal first metatarsal, right foot. 2. Incision and drainage of abscess, right foot. WOUND CLASS: Contaminated. ANESTHESIA: General. HEMOSTASIS: Pneumatic thigh tourniquet at 300 mmHg. INDICATIONS: This 66-year-old female presents with a chronic ulceration to the right forefoot. She had previously undergone a transmetatarsal amputation of the right forefoot to reduce risk of continued problems with her foot. She even after the transmetatarsal amputation had continued problems with the dehiscence and open wound underneath the first metatarsal of the right foot Conservative treatment has met with unsatisfactory results and after an MRI indicated osteomyelitis of the first metatarsal, she is agreeable to surgical intervention after risks and complications were discussed at length. No guarantees were extended to the patient. She understands that if she walks on this it is not likely to heal. She understands that there is always a chance of continued surgical options in her future. DESCRIPTION OF PROCEDURE: The patient was brought back to the operating table, placed in secure supine position. A general anesthetic was then induced. An appropriate timeout was performed. The right foot was then prepped and draped in normal sterile manner. The right foot was then elevated, allowed to exsanguinate after which the tourniquet was inflated to 300 mmHg. Attention was then directed to the distal aspect of the right foot where an approximately 2.5 cm full-thickness ulceration was noted to the plantar aspect of the first metatarsal had extended and probe down to first metatarsal head area. A 2.5 cm dorsal incision was made overlying the distal first metatarsal was extended down to bone. The combination of sharp and blunt dissection was carried out around the distal first metatarsal. The distal first metatarsal was quite soft. Utilizing a power sagittal saw, the distal 2 cm of the first metatarsal was resected. Remaining bone was found to be solid and without any necrosis, abscess or pathology. The bone specimen was sent for gross and microscopic evaluation after the distal portion of the bone, small piece was taken and sent for culture and sensitivities. The dorsal proximal portion of the bone was marked with 4-0 Vicryl. Exploring the remainder of the wound, there are several areas of necrosis that extended from the full-thickness ulceration dorsally and inferior to what was the distal portion of the first metatarsal. This was sharply dissected and cauterized as necessary. Even with the tourniquet up, she had multiple bleeders. There was also some necrotic tissue abscess noted to the plantar lateral aspect of what was the first metatarsal head area. The wound once it was found to be free of necrosis and pathological soft tissue, wound power wash was performed. A 3000 mL were utilized for power irrigation to the area. Once this was done, a swab culture was taken to confirm a clean wound base. Cauterization of some venous blood vessels were done at this time. The wound was then packed utilizing 1-inch iodoform packing, sterile 4 x 4, sterile Kerlix, all secured with ABDs and Coban. It should be noted that once the tourniquet was down, there is good capillary refill time to the right forefoot. The patient is to be nonweightbearing on the right lower extremity, especially forefoot area as much as possible. She will refer back to [facility] for further treatment. The way the incision and drainage and amputation were done, the patient could likely have a delayed primary closure, sometime in her future if we feel the wound is clean and the proximal portion of the amputation site is pathologically clear of any infection. Job ID: [id number] DocumentID: [id number] Dictated Date: 10/04/2021 14:12:10 Communications Engineer Date: 10/04/2021 20:37:16 Dictated By: TRACEY KIRK DPM
== END 2021-10-04 15:55 ==
LOC: SDC 11:29
PROVIDERS: ATTEND Podiatrist Foot & Ankle Surgery
DX: T87.53 Necrosis of amputation stump, right lower extremity (principal); T81.49XA Infection following a procedure, other surgical site, initial encounter; M86.671 Other chronic osteomyelitis, right ankle and foot; M86.171 Other acute osteomyelitis, right ankle and foot; E11.52 Type 2 diabetes mellitus with diabetic peripheral angiopathy with gangrene; E11.621 Type 2 diabetes mellitus with foot ulcer; E11.51 Type 2 diabetes mellitus with diabetic peripheral angiopathy without gangrene; E11.40 Type 2 diabetes mellitus with diabetic neuropathy, unspecified; L02.611 Cutaneous abscess of right foot; M19.071 Primary osteoarthritis, right ankle and foot; K21.9 Gastro-esophageal reflux disease without esophagitis; I25.10 Atherosclerotic heart disease of native coronary artery without angina pectoris; I10 Essential (primary) hypertension; M79.7 Fibromyalgia; Z79.84 Long term (current) use of oral hypoglycemic drugs; Z79.899 Other long term (current) drug therapy; Z79.82 Long term (current) use of aspirin; Z79.02 Long term (current) use of antithrombotics/antiplatelets; Z79.891 Long term (current) use of opiate analgesic; Z79.4 Long term (current) use of insulin; Z87.891 Personal history of nicotine dependence
CPT/HCPCS: 73620; 82947; 87070; 87075; 87077; 87081; 87101; 87186; 87205; 93005

== ENCOUNTER → 2021-10-07 | Outpatient (CLI) | payer MEDICARE, OTHER ==
[~2021-10-07] MED LIST changes: -LACTATED RINGERS 1,000 ML IV PRN
[2021-10-07 10:47] LABS: BASOPHILS % (AUTO) 0 % (0-10); MEAN CORPUSCULAR HGB CONC 31 g/dL (32-36); NEUTROPHILS % (AUTO) 62 % (42-75)
[2021-10-07 10:49] LABS: EOSINOPHILS # (AUTO) 0.1 10^3/uL (0.0-0.3); EOSINOPHILS % (AUTO) 1 % (0-10); LYMPHOCYTES # (AUTO) 2.4 10^3/uL (1.0-4.0); LYMPHOCYTES % (AUTO) 23 % (12-44); MEAN CORPUSCULAR HEMOGLOBIN 28 pg (25-34); MEAN CORPUSCULAR VOLUME 91 fL (80-99); MEAN PLATELET VOLUME 9.7 fL (9.0-12.2); MONOCYTES # (AUTO) 1.2 10^3/uL (0.0-1.0); MONOCYTES % (AUTO) 12 % (0-12); NEUTROPHILS # (AUTO) 6.4 10^3/uL (1.8-7.8); PLATELET COUNT 128 10^3/uL (130-400); WHITE BLOOD COUNT 10.3 10^3/uL (4.3-11.0)
[2021-10-07 10:53] LABS: HEMATOCRIT 18 % (35-52); HEMOGLOBIN 5.5 g/dL (11.5-16.0)
[2021-10-07 11:06] LABS: ALBUMIN 3.6 GM/DL (3.2-4.5); BILIRUBIN,TOTAL 0.3 MG/DL (0.1-1.0); CREATININE SERUM 1.11 MG/DL (0.60-1.30); TOTAL PROTEIN 6.8 GM/DL (6.4-8.2)
== END ==
LOC: LAB 10:27
PROVIDERS: ATTEND Family Medicine
DX: E11.621 Type 2 diabetes mellitus with foot ulcer (principal); I70.234 Atherosclerosis of native arteries of right leg with ulceration of heel and midfoot; T81.31XA Disruption of external operation (surgical) wound, not elsewhere classified, initial encounter; E11.65 Type 2 diabetes mellitus with hyperglycemia; M86.071 Acute hematogenous osteomyelitis, right ankle and foot; B95.62 Methicillin resistant Staphylococcus aureus infection as the cause of diseases classified elsewhere; L97.513 Non-pressure chronic ulcer of other part of right foot with necrosis of muscle; R23.1 Pallor
CPT/HCPCS: 36415; 80053; 85025

== ENCOUNTER → 2021-10-07 | Outpatient (CLI) | payer MEDICARE, OTHER | LOC: WOUNDCARE 09:09 | PROVIDERS: ATTEND Family Medicine | DX: E11.621 Type 2 diabetes mellitus with foot ulcer (principal); I70.234 Atherosclerosis of native arteries of right leg with ulceration of heel and midfoot; T81.31XA Disruption of external operation (surgical) wound, not elsewhere classified, initial encounter; E11.65 Type 2 diabetes mellitus with hyperglycemia; M86.071 Acute hematogenous osteomyelitis, right ankle and foot; B95.61 Methicillin susceptible Staphylococcus aureus infection as the cause of diseases classified elsewhere; L97.513 Non-pressure chronic ulcer of other part of right foot with necrosis of muscle; R23.1 Pallor; E11.52 Type 2 diabetes mellitus with diabetic peripheral angiopathy with gangrene | CPT/HCPCS: A6260; G0463; 99213 ==

== ENCOUNTER 2021-10-08 08:00 | Outpatient (RCR) | payer MEDICARE, OTHER ==
[2021-10-07 13:15] VITALS: BP 135/59
[2021-10-07 13:33] VITALS: BP 132/63
[2021-10-07 14:00] VITALS: BP 144/61
[2021-10-07 16:08] VITALS: BP 153/70
[~2021-10-08 08:00] MED LIST changes: +NS IV 500 ML 500 ML IV SCH
[2021-10-08 08:21] LABS: HEMOGLOBIN 6.7 g/dL (11.5-16.0)
[2021-10-08 08:25] VITALS: BP 153/61
[2021-10-08 08:55] VITALS: BP 151/65
== END 2021-10-14 | disposition home or self-care (01) ==
LOC: SDC 08:00
PROVIDERS: ATTEND Pediatrics
DX: D64.9 Anemia, unspecified (principal)
CPT/HCPCS: 36430; 86850; 86900; 86901; 86920; P9016; 36415; 85014; 85018

== ENCOUNTER → 2021-10-15 | Outpatient (CLI) | payer MEDICARE, OTHER ==
[~2021-10-15] MED LIST changes: -NS IV 500 ML 500 ML IV SCH
== END ==
LOC: WOUNDCARE 10:00
PROVIDERS: ATTEND Family Medicine
DX: E11.621 Type 2 diabetes mellitus with foot ulcer (principal); I70.234 Atherosclerosis of native arteries of right leg with ulceration of heel and midfoot; T81.31XA Disruption of external operation (surgical) wound, not elsewhere classified, initial encounter; E11.65 Type 2 diabetes mellitus with hyperglycemia; M86.071 Acute hematogenous osteomyelitis, right ankle and foot; B95.62 Methicillin resistant Staphylococcus aureus infection as the cause of diseases classified elsewhere; L97.513 Non-pressure chronic ulcer of other part of right foot with necrosis of muscle; D50.8 Other iron deficiency anemias; E11.52 Type 2 diabetes mellitus with diabetic peripheral angiopathy with gangrene; R23.1 Pallor
CPT/HCPCS: 11042; 97605; G0463

== ENCOUNTER → 2021-10-21 | Outpatient (CLI) | payer MEDICARE, OTHER ==
[~2021-10-21] MED LIST changes: +IBUP-2473 PO; +LOSA50TA63 PO; +SUCR1TAB PO; +SULF1TAB38 PO
== END ==
LOC: WOUNDCARE 09:35
PROVIDERS: ATTEND Family Medicine
DX: E11.621 Type 2 diabetes mellitus with foot ulcer (principal); E11.36 Type 2 diabetes mellitus with diabetic cataract; E11.40 Type 2 diabetes mellitus with diabetic neuropathy, unspecified; L97.512 Non-pressure chronic ulcer of other part of right foot with fat layer exposed
CPT/HCPCS: 97605; G0463

== ENCOUNTER → 2021-10-23 | Outpatient (CLI) | payer MEDICARE, OTHER ==
[~2021-10-23] MED LIST changes: -LOSA50TA63 PO; -SUCR1TAB PO; -SULF1TAB38 PO
== END ==
LOC: WOUNDCARE 10:15
PROVIDERS: ATTEND Family Medicine
DX: E11.621 Type 2 diabetes mellitus with foot ulcer (principal); I70.234 Atherosclerosis of native arteries of right leg with ulceration of heel and midfoot; T81.31XA Disruption of external operation (surgical) wound, not elsewhere classified, initial encounter; E11.65 Type 2 diabetes mellitus with hyperglycemia; M86.071 Acute hematogenous osteomyelitis, right ankle and foot; B95.62 Methicillin resistant Staphylococcus aureus infection as the cause of diseases classified elsewhere; L97.513 Non-pressure chronic ulcer of other part of right foot with necrosis of muscle; D50.8 Other iron deficiency anemias; E11.52 Type 2 diabetes mellitus with diabetic peripheral angiopathy with gangrene; R23.1 Pallor
CPT/HCPCS: 11042; 97605; G0463

== ENCOUNTER 2021-10-27 13:36 | Observation (INO) | payer MEDICARE, OTHER ==
[~2021-10-27] VITALS: Ht 167 cm; Wt 93.9 kg
[~2021-10-27 13:36] MED LIST changes: -IBUP-2473 PO
[2021-10-27 14:34] LABS: BASOPHILS % (AUTO) 0 % (0-10)
[2021-10-27 14:36] LABS: EOSINOPHILS # (AUTO) 0.1 10^3/uL (0.0-0.3); EOSINOPHILS % (AUTO) 2 % (0-10); HEMATOCRIT 21 % (35-52); LYMPHOCYTES # (AUTO) 1.4 10^3/uL (1.0-4.0); LYMPHOCYTES % (AUTO) 27 % (12-44); MEAN CORPUSCULAR HEMOGLOBIN 30 pg (25-34); MEAN CORPUSCULAR HGB CONC 31 g/dL (32-36); MEAN CORPUSCULAR VOLUME 95 fL (80-99); MEAN PLATELET VOLUME 10.1 fL (9.0-12.2); MONOCYTES # (AUTO) 0.3 10^3/uL (0.0-1.0); MONOCYTES % (AUTO) 5 % (0-12); NEUTROPHILS # (AUTO) 3.5 10^3/uL (1.8-7.8); NEUTROPHILS % (AUTO) 65 % (42-75); PLATELET COUNT 94 10^3/uL (130-400); WHITE BLOOD COUNT 5.3 10^3/uL (4.3-11.0)
[2021-10-27 14:42] LABS: HEMOGLOBIN 6.6 g/dL (11.5-16.0)
[2021-10-27 14:51] LABS: POTASSIUM 4.6 MMOL/L (3.6-5.0)
[2021-10-27 14:52] LABS: CALCIUM 8.9 MG/DL (8.5-10.1)
[2021-10-27 14:53] LABS: TOTAL PROTEIN 6.8 GM/DL (6.4-8.2)
[2021-10-27 14:55] LABS: BILIRUBIN,TOTAL 0.3 MG/DL (0.1-1.0)
[2021-10-27 14:57] LABS: CREATININE SERUM 1.32 MG/DL (0.60-1.30)
[2021-10-27] MEDS ORDERED: NS IV 500 ML 500 ML IV ONE (15:15)
--- NOTE | 2021-10-27 15:35 | ED General ---
General Chief Complaint: General Problems/Pain Stated Complaint: ANEMIC,DIABETIC WOUND R FOOT,TYPE 1 DM Nursing Triage Note: PT STATES WEAKNESS, HAD ALL THE TOES AMPUTATED ON RT FOOT MONTHS AGO, TWO WEEKS AGO A BONE WAS REMOVED FROM THE GREAT TOE AREA DUE TO OSTEOMYLITIS. PT IS SOB AND HX OF ANEMIA (ROSY COTTO) History of Present Illness Date Seen by Provider: Oct 27, 2021 Time Seen by Provider: 14:10 Initial Comments 66-year-old reports for shortness of air. She has had all toes amputated on her right foot, in September of this year she had a partial resection of the first metatarsal on the right foot. She has a wound VAC in place. She required a blood transfusion of 2 units in September 2021. She was evaluated by Dr. Kohli including a heart cath in September which did not show her symptoms to be related to cardiac. She denies fever, cough or congestion. She had COVID in August 2021, she has not been vaccinated for COVID or flu. Timing/Duration: 3-4 Days Severity: Moderate Modifying Factors: improves with Rest, improves with Other (Oxygen) Associated Systoms: No Chest Pain, No Cough, No Fever/Chills, No Headaches, No Loss of Appetite; Malaise, Nausea/Vomiting, Shortness of Air, Weakness (ROSY COTTO) Allergies and Home Medications Allergies Coded Allergies: No Known Drug Allergies (Unverified , 08/21/21) Patient Home Medication List Home Medication List Reviewed: Yes (ROSY COTTO) Ascorbic Acid (Vitamin C) 500 Mg Tablet, 500 MG PO 1200, (Reported) Entered as Reported by: DAPHNEY SHIRLEY on 10/01/21 1150 Last Action: Reviewed Aspirin (Aspirin) 81 Mg Tab.chew, 81 MG PO DAILY, (Reported) Entered as Reported by: AMY TODD on 04/27/18 1329 Last Action: Reviewed Cholecalciferol (Vitamin D3) (Vitamin D3) 50 Mcg Capsule, 50 MCG PO 1200, (Reported) Entered as Reported by: DAPHNEY SHIRLEY on 10/01/21 1150 Last Action: Reviewed Clopidogrel Bisulfate (Clopidogrel) 75 Mg Tablet, 75 MG PO DAILY, (Reported) Entered as Reported by: AMY TODD on 08/16/19 1445 Last Action: Continued Docusate Sodium (Stool Softener) 100 Mg Capsule, 200 MG PO DAILY, (Reported) Entered as Reported by: DAPHNEY SHIRLEY on 09/06/20 1002 Gabapentin (Neurontin) 300 Mg Capsule, 900 MG PO TID, (Reported) Entered as Reported by: ANIYA ISABEL on 04/02/20 1448 Last Action: Continued Glimepiride (Glimepiride) 4 Mg Tablet, 4 MG PO BID, (Reported) Entered as Reported by: JACQUES SHANNON on 12/05/17 0950 Hydralazine HCl (Hydralazine HCl) 50 Mg Tablet, 50 MG PO TID, (Reported) Entered as Reported by: ANASTASIIA SMITH on 02/04/18 1521 Last Action: Converted Insulin Aspart (Novolog Flexpen) 300 Units/3 Ml Solution, 13 UNITS SQ AC, (Reported) Entered as Reported by: DAPHNEY SHIRLEY on 10/01/21 1154 Last Action: Reviewed Insulin Detemir (Levemir Flextouch) 100 Unit/1 Ml Insuln.pen, 22 UNIT SQ HS, (Reported) Entered as Reported by: DAPHNEY SHIRLEY on 10/01/21 1203 Last Action: Converted Lactobacillus Acidophilus (Probiotic) 1 Each Capsule, 2 EACH PO, (Reported) Entered as Reported by: VALERIA FAJARDO on 10/03/21 0943 Last Action: Reviewed Linezolid (Linezolid) 600 Mg Tablet, 600 MG PO BID, (Reported) Entered as Reported by: DAPHNEY SHIRLEY on 10/01/21 1150 Last Action: Continued Liraglutide (Victoza 3-Rigo) 0.6 Mg/0.1 Ml Pen.injctr, 1.8 MG SQ HS, (Reported) Entered as Reported by: DAPHNEY SHIRLEY on 11/27/20 0958 Metoprolol Succinate (Metoprolol Succinate) 200 Mg Tab.er.24h, 200 MG PO DAILY, (Reported) Entered as Reported by: ANASTASIIA SMITH on 02/04/18 1521 Last Action: Converted Pantoprazole Sodium (Pantoprazole Sodium) 20 Mg Tablet.dr, 20 MG PO DAILY, (Reported) Entered as Reported by: AMY TODD on 08/16/19 1445 Last Action: Reviewed Zinc Sulfate (Zinc) 50 Mg Tablet, 50 MG PO 1200, (Reported) Entered as Reported by: DAPHNEY SHIRLEY on 10/01/21 1150 Discontinued Medications Hydrocodone/Acetaminophen (Hydrocodone-Acetamin 5-325 mg) 1 Each Tablet, 1 TAB PO Q4H PRN for PAIN-MODERATE (5-7) Discontinued Reason: No Longer Taking Prescribed by: MARIBEL KIRK on 10/04/21 1404 Last Action: Discontinued Review of Systems Review of Systems Constitutional: see HPI, weakness EENTM: see HPI, no symptoms reported Respiratory: see HPI; No cough; dyspnea on exertion Cardiovascular: no symptoms reported, see HPI; No chest pain Gastrointestinal: see HPI, nausea Musculoskeletal: no symptoms reported, see HPI (ROSY COTTO) All Other Systems Reviewed Negative Unless Noted: Yes (ROSY COTTO) Past Rwekoct-Yeaefx-Nyspme Hx Patient Social History Tobacco Use?: No Smoking Status: Former Smoker Substance use?: No Alcohol Use?: No (ROSY COTTO) Immunizations Up To Date Tetanus Booster (TDap): Unknown PED Vaccines UTD: No First/Initial COVID19 Vaccinat: none Second COVID19 Vaccination Ramesh: none Third COVID19 Vaccination Date: none (ROSY COTTO) Seasonal Allergies Seasonal Allergies: No (ROSY COTTO) Past Medical History Surgery/Hospitalization HX: FIVE STENTS PLACED APPROX. 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 Sexually Transmitted Disease: No HIV/AIDS: No Genitourinary: Yes UTI-Chronic Gastrointestinal: Yes Gall Bladder Disease Musculoskeletal: Yes Amputee, Fibromyalgia Endocrine: Yes Diabetes, Insulin dep HEENT: No (GLASSES) Loss of Vision: Denies Hearing Impairment: Denies Cancer: No Psychosocial: No Integumentary: Yes (diabetic ulcer right foot) Blood Disorders: No Adverse Reaction/Blood Tranf: No (N/A) (ROSY COTTO) Family Medical History Reviewed Nursing Family Hx (ROSY COTTO) Cardiovascular disease 19 MOTHER, G8 BROTHER G8 BROTHER Completed stroke 19 MOTHER, Diabetes mellitus 19 FATHER, 19 MOTHER, G8 BROTHER G8 SISTER FH: brain tumor FH: breast cancer 19 MOTHER, FH: lung cancer FHx: peripheral neuropathy Hypertension 19 FATHER, Lung c 19 FATHER, Myocardial infarction 19 MOTHER, Neuro No Pertinent Family Hx (ROSY COTTO) Physical Exam Vital Signs Vital Signs - First Documented 10/27/21 14:04 Temp 36.0 Pulse 76 Resp 20 B/P (MAP) 168/60 (96) Pulse Ox 100 O2 Delivery Nasal Cannula O2 Flow Rate 2.00 (RADHA HEARD MD) Vital Signs Capillary Refill : Less Than 3 Seconds (KIRTI,ROSY LEWIS) Height, Weight, BMI Height: 5'5.50" Weight: 195lbs. 0.0oz. [id number]; 32.00 BMI Method:Stated General Appearance: No Apparent Distress, WD/WN HEENT: PERRL/EOMI, TMs Normal, Normal ENT Inspection, Pharynx Normal Neck: Full Range of Motion, Normal Inspection, Non Tender, Supple Cardiovascular: Regular Rate, Rhythm, No Murmur, Normal Peripheral Pulses; No Bradycardia, No Tachycardia Gastrointestinal: Normal Bowel Sounds, Non Tender, Soft Extremity: Normal Capillary Refill, Normal Inspection, Normal Range of Motion, Other (right foot, amputation of all toes. Wound vac in place. No erythema, wa rmth or drainage to right foot. Post op shoe in place. ) Neurologic/Psychiatric: Alert, Oriented x3, No Motor/Sensory Deficits, Normal Mood/Affect Skin: Normal Color, Warm/Dry (ROSY COTTO) Progress/Results/Core Measures Suspected Sepsis SIRS Temperature: Pulse: 76 Respiratory Rate: 20 Laboratory Tests 10/27/21 14:25: White Blood Count 5.3 Blood Pressure 168 /60 Mean: 96 Laboratory Tests 10/27/21 14:25: Creatinine 1.32H, Platelet Count 94L, Total Bilirubin 0.3 (ROSY COTTO) Results/Orders Lab Results Laboratory Tests Test 10/27/21 14:25 Range/Units White Blood Count 5.3 4.3-11.0 10^3/uL Red Blood Count 2.22 L 3.80-5.11 10^6/uL Hemoglobin 6.6 *L 11.5-16.0 g/dL Hematocrit 21 L 35-52 % Mean Corpuscular Volume 95 80-99 fL Mean Corpuscular Hemoglobin 30 25-34 pg Mean Corpuscular Hemoglobin Concent 31 L 32-36 g/dL Red Cell Distribution Width 15.9 H 10.0-14.5 % Platelet Count 94 L 130-400 10^3/uL Mean Platelet Volume 10.1 9.0-12.2 fL Immature Granulocyte % (Auto) 0 % Neutrophils (%) (Auto) 65 42-75 % Lymphocytes (%) (Auto) 27 12-44 % Monocytes (%) (Auto) 5 0-12 % Eosinophils (%) (Auto) 2 0-10 % Basophils (%) (Auto) 0 0-10 % Neutrophils # (Auto) 3.5 1.8-7.8 10^3/uL Lymphocytes # (Auto) 1.4 1.0-4.0 10^3/uL Monocytes # (Auto) 0.3 0.0-1.0 10^3/uL Eosinophils # (Auto) 0.1 0.0-0.3 10^3/uL Basophils # (Auto) 0.0 0.0-0.1 10^3/uL Immature Granulocyte # (Auto) 0.0 0.0-0.1 10^3/uL Percent Immature Platelet Fraction 2.7 0.0-7.6 % Sodium Level 139 135-145 MMOL/L Potassium Level 4.6 3.6-5.0 MMOL/L Chloride Level 109 H 98-107 MMOL/L Carbon Dioxide Level 12 L 21-32 MMOL/L Anion Gap 18 H 5-14 MMOL/L Blood Urea Nitrogen 45 H 7-18 MG/DL Creatinine 1.32 H 0.60-1.30 MG/DL Estimat Glomerular Filtration Rate 45 BUN/Creatinine Ratio 34 Glucose Level 169 H 70-105 MG/DL Calcium Level 8.9 8.5-10.1 MG/DL Corrected Calcium 8.9 8.5-10.1 MG/DL Total Bilirubin 0.3 0.1-1.0 MG/DL Aspartate Amino Transf (AST/SGOT) 17 5-34 U/L Alanine Aminotransferase (ALT/SGPT) 29 0-55 U/L Alkaline Phosphatase 68 40-136 U/L Troponin I < 0.028 <0.028 NG/ML C-Reactive Protein High Sensitivity 1.61 H 0.00-0.50 MG/DL Total Protein 6.8 6.4-8.2 GM/DL Albumin 4.0 3.2-4.5 GM/DL (RADHA HEARD MD) My Orders Orders - RADHA HEARD MD Cbc With Automated Diff (10/27/21 13:44) Comprehensive Metabolic Panel (10/27/21 13:44) Hs C Reactive Protein (10/27/21 13:44) Ed Iv/Invasive Line Start (10/27/21 13:44) (RADHA HEARD MD) Medications Given in ED Current Medications Medications Dose Ordered Sig/[place] Route Start Time Stop Time Status Last Admin Dose Admin Sodium Chloride 500 ml @ 0 mls/hr Q0M ONCE IV 10/27/21 15:15 10/27/21 15:16 DC 10/27/21 15:17 0 MLS/HR (RADHA HEARD MD) Vital Signs/I&O 10/27/21 14:04 Temp 36.0 Pulse 76 Resp 20 B/P (MAP) 168/60 (96) Pulse Ox 100 O2 Delivery Nasal Cannula O2 Flow Rate 2.00 (RADHA HEARD MD) Vital Signs/I&O Capillary Refill : Less Than 3 Seconds (ROSY COTTO) Blood Pressure Mean: 96 Progress Note : Time: 14:10 Progress Note Patient seen and evaluated, will obtain labs, oxygen per nasal cannula at 1 to 2 L to maintain SaO2 at 90% or greater. No other requests at this time. She does report intermittent nausea but not requiring medication at this time 1500 hemoglobin 6.6. Did discuss with the patient, recommended outpatient admission will transfuse 1 unit and recheck H&H. [address] Curtis, agreeable with plans for admission. (ROSY COTTO) ECG Initial ECG Impression Date: Oct 27, 2021 Initial ECG Impression Time: 15:20 Initial ECG Rate: 75 Initial ECG Rhythm: Normal Sinus Initial ECG Intervals: Normal Initial ECG Intervals VT 168, QRSD 79, QT 419, QTc 468. Queen P 47, QRS 0, T 101. Initial ECG Impression: Normal Initial ECG Comparisson: Unchanged (ROSY COTTO) Diagnostic Imaging Diagonstic Imaging: Xray Plain Films/CT/US/NM/MRI: chest Comments NAME: [facility]ON [facility] REC#: [id number] PT STATUS: ADM Jolie : 1955 PHYSICIAN: ROSY COTTO ADMIT DATE: 10/27/21 Draft Date of Exam:10/27/21 CHEST 1 VIEW, AP/PA ONLY CLINICAL INDICATIONS: Patient with shortness of air. Patient has weakness and had all toes amputated on right foot 5 months ago. EXAM: Portable chest x-ray upright view. COMPARISON: Chest x-ray dated 09/30/2021. FINDINGS: Lungs/pleura: Lungs are clear. There is no pneumothorax. There is no pleural effusion. Mediastinum: Unremarkable. Pulmonary vasculature: Unremarkable. Heart: Unremarkable. Bones/extrathoracic soft tissue: Unremarkable. IMPRESSION: There is no radiographic evidence of acute cardiopulmonary process. Dictated on workstation # [id number] Dict: 10/27/21 1537 Trans: 10/27/21 1543 [facility] [id number] Interpreted by: MISHEL DAN MD Electronically signed by: Reviewed: Reviewed by Me (ROSY COTTO) Departure Impression Primary Impression: Anemia Qualified Codes: D64.9 - Anemia, unspecified Additional Impressions: Weak Type 1 diabetes Qualified Codes: E10.59 - Type 1 diabetes mellitus with other circulatory complications Disposition: ADMITTED INPATIENT Condition: Stable Admissions Decision to Admit Reason: Admit from ER (General) Decision to Admit/Date: Oct 27, 2021 Time/Decision to Admit Time: 15:00 (ROSY COTTO) Departure-Patient Inst. Referrals: [facility] [place] (PCP/Family) Primary Care Physician ATTENDING PHYSICIAN NOTE: I was physically present as attending physician in the emergency department during the care of this patient. I placed the initial orders, but I was otherwise not directly involved in the decision making or delivery of care for this patient. (RADHA HEARD MD) Copy Copies To 1: DANETTE BOWIE MD Copies To 2: MARIBEL KIRK DPM, AMY ARNP Oct 27, 2021 15:35 RADHA HEARD MD Oct 27, 2021 19:37
--- NOTE | 2021-10-27 15:43 | Diagnostic Imaging Report ---
CLINICAL INDICATIONS: Patient with shortness of air. Patient has weakness and had all toes amputated on right foot 5 months ago. EXAM: Portable chest x-ray upright view. COMPARISON: Chest x-ray dated 09/30/2021. FINDINGS: Lungs/pleura: Lungs are clear. There is no pneumothorax. There is no pleural effusion. Mediastinum: Unremarkable. Pulmonary vasculature: Unremarkable. Heart: Unremarkable. Bones/extrathoracic soft tissue: Unremarkable. IMPRESSION: There is no radiographic evidence of acute cardiopulmonary process. Dictated by: Dictated on workstation # [id number]
[2021-10-27 16:00] VITALS: BP 192/79
[2021-10-27] MEDS ORDERED: NS IV 500 ML 500 ML IV SCH (16:00)
[2021-10-27] MEDS ORDERED: ACETAMINOPHEN 325 MG TABLET PO PRN (16:00)
[2021-10-27] MEDS: NS IV 1000 ML 1,000 ML IV SCH (16:34)
[2021-10-27 16:35] VITALS: BP 192/79
[2021-10-27 16:55] VITALS: BP 192/75
[2021-10-27 17:43] VITALS: BP 161/71
[2021-10-27] MEDS ORDERED: PATIENT MAY USE OWN MEDS, ALL MC SCH (18:15)
[2021-10-27 19:49] VITALS: BP 196/74
[2021-10-27 20:00] VITALS: BP 154/71
[2021-10-27 20:31] LABS: HEMOGLOBIN 7.7 g/dL (11.5-16.0)
[2021-10-27] MEDS ORDERED: hydrALAZINE (APRESOLINE) 25 MG TAB PO ONE (20:45)
[2021-10-27] MEDS: inSUlin ASPART (NovoLOG) 1 UNIT/0.01 ML (CHARGE PER UNIT) SC SCH (20:48)
[2021-10-27] MEDS ORDERED: NON-FORMULARY MEDICATION 1 EA EA (Hydralazine HCl 50 MG) PO SCH (21:00)
[2021-10-27] MEDS ORDERED: INSULIN DETEMIR 22 UNIT SQ SCH (21:00)
[2021-10-27] MEDS: LINEZOLID (ZYVOX) 600 MG TAB PO SCH (21:12)
[2021-10-27] MEDS: GABAPENTIN 300 MG (NEURONTIN) CAP PO SCH (21:13)
[2021-10-27] MEDS: hydrALAZINE (APRESOLINE) 25 MG TAB PO SCH (21:13)
[2021-10-27] MEDS: ONDANSETRON 4 MG/2 ML (SDV) Z0FRAN IVP PRN (22:34)
[2021-10-28 00:22] VITALS: BP 143/69
[2021-10-28 04:01] VITALS: BP 148/70
[2021-10-28] MEDS: inSUlin ASPART (NovoLOG) 1 UNIT/0.01 ML (CHARGE PER UNIT) SC SCH ×2 (05:26→11:39)
[2021-10-28] MEDS: NS IV 1000 ML 1,000 ML IV SCH (05:32)
[2021-10-28 05:55] LABS: HEMOGLOBIN 7.3 g/dL (11.5-16.0)
[2021-10-28 05:57] LABS: BASOPHILS % (AUTO) 1 % (0-10); EOSINOPHILS # (AUTO) 0.1 10^3/uL (0.0-0.3); EOSINOPHILS % (AUTO) 2 % (0-10); HEMATOCRIT 23 % (35-52); LYMPHOCYTES # (AUTO) 1.7 10^3/uL (1.0-4.0); LYMPHOCYTES % (AUTO) 35 % (12-44); MEAN CORPUSCULAR HEMOGLOBIN 30 pg (25-34); MEAN CORPUSCULAR HGB CONC 32 g/dL (32-36); MEAN CORPUSCULAR VOLUME 95 fL (80-99); MEAN PLATELET VOLUME 10.5 fL (9.0-12.2); MONOCYTES # (AUTO) 0.3 10^3/uL (0.0-1.0); MONOCYTES % (AUTO) 7 % (0-12); NEUTROPHILS # (AUTO) 2.7 10^3/uL (1.8-7.8); NEUTROPHILS % (AUTO) 54 % (42-75); PLATELET COUNT 68 10^3/uL (130-400); WHITE BLOOD COUNT 4.9 10^3/uL (4.3-11.0)
[2021-10-28 06:04] LABS: POTASSIUM 4.3 MMOL/L (3.6-5.0)
[2021-10-28 06:06] LABS: CALCIUM 8.8 MG/DL (8.5-10.1)
[2021-10-28 06:10] LABS: CREATININE SERUM 1.13 MG/DL (0.60-1.30)
[2021-10-28 07:59] VITALS: BP 148/65
[2021-10-28] MEDS: GABAPENTIN 300 MG (NEURONTIN) CAP PO SCH (08:20)
[2021-10-28] MEDS: LINEZOLID (ZYVOX) 600 MG TAB PO SCH (08:20)
[2021-10-28] MEDS: hydrALAZINE (APRESOLINE) 25 MG TAB PO SCH (08:22)
[2021-10-28] MEDS ORDERED: meTOprolol SUCCINATE 100 MG (TOPROL XL) TAB PO SCH (09:00)
[2021-10-28] MEDS ORDERED: CLOPIDOGREL 75 MG (PLAVIX) TABLET PO SCH (09:00)
[2021-10-28] MEDS ORDERED: IBUP-2473 PO ×2 (09:16)
[2021-10-28] MEDS ORDERED: IRON SUCROSE 200 MG/10 ML (VENOFER) VIAL IV ONE (10:15)
[2021-10-28] MEDS ORDERED: CYANOCOBALAMIN INJ 1000 MCG/ML IM ONE (10:15)
--- NOTE | 2021-10-28 10:46 | History & Physical ---
History of Present Illness HPI/Chief Complaint CC: Severe anemia symptomatic HPI: 66 yr old [facility] clinic pt of [facility] who is status post right foot metatarsal amputation by Dr. Sarmiento two weeks ago. Subsequently has had a real struggle with anemia due to acute blood loss. Wound vac remains in place. She was given one unit of blood and increased from 6.6 to 7.7 now it is 7.3 today. We will hep lock the IV fluid. B12 level will be checked and I will give her a B12 injection and an iron infusion. She met criteria for in-patient rehab so she will be coming down to increase strength due to severe debility. I will monitor her hemoglobin and she will complete her iron infusions. We will prevent falls since she already has a hematoma on her right breast from recent fall. and son at the bedside. Consulting hematology Dr. Christensen due to severity of anemia transfusion dependent and reticulocyte count not elevated. Source: patient Exam Limitations: no limitations Date Seen 10/28/21 Time Seen by a Provider: 10:00 Attending Physician Lin Norris DO [facility] Referring Physician Date of Admission Oct 27, 2021 at 15:20 Home Medications & Allergies Home Medications Reviewed patient Home Medication Reconciliation performed by pharmacy medication reconciliations community development technician and/or nursing. Patients Allergies have been reviewed. Allergies Allergies Coded Allergies No Known Drug Allergies (Unverified10/28/21) Past Aiqrhtk-Twbzhc-Lyraxw Hx Past Med/Social Hx: Reviewed Nursing Past Med/Soc Hx, Reviewed and Corrections made Patient Social History Marrital Status: Employed/Student: retired Smoking Status: Former Smoker Former Smoker, Quit: Apr 27, 1990 Type Used: Cigarettes 2nd Hand Smoke Exposure: Yes Recent Foreign Travel: No Contact w/other who traveled: No Recent Hopitalizations: No Immunizations Up To Date Tetanus Booster (TDap): Unknown Pediatric: No Date of Pneumonia Vaccine: Oct 15, 2018 Date of Influenza Vaccine: Jun 14, 2021 Seasonal Allergies Seasonal Allergies: No Past Medical History Surgeries: Amputation, Coronary Stent, Orthopedic, Tubal Ligation, Vascular Surgery Respiratory: Pneumonia Currently Using CPAP: No Currently Using BIPAP: No Cardiac: Coronary Artery Disease Neurological: Neuropathy 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: No Sexually Transmitted Disease: No HIV/AIDS: No Female 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 Disorders: Denies Menopausal Genitourinary: UTI-Chronic Gastrointestinal: Gall Bladder Disease Musculoskeletal: Amputee, Fibromyalgia Endocrine: Diabetes, Insulin dep Loss of Vision: Denies Hearing Impairment: Denies History of Blood Disorders: No Adverse Reaction to Blood [place]: No (N/A) Family History Reviewed Nursing Family Hx Cardiovascular disease 19 MOTHER, G8 BROTHER G8 BROTHER Completed stroke 19 MOTHER, Diabetes mellitus 19 FATHER, 19 MOTHER, G8 BROTHER G8 SISTER FH: brain tumor FH: breast cancer 19 MOTHER, FH: lung cancer FHx: peripheral neuropathy Hypertension 19 FATHER, Lung c 19 FATHER, Myocardial infarction 19 MOTHER, Neuro No Pertinent Family Hx Review of Systems Constitutional: see HPI, malaise, weakness EENTM: no symptoms reported Respiratory: no symptoms reported Cardiovascular: no symptoms reported Gastrointestinal: no symptoms reported Genitourinary: no symptoms reported Musculoskeletal: no symptoms reported Skin: no symptoms reported Psychiatric/Neurological: No Symptoms Reported All Other Systems Reviewed Negative Unless Noted: Yes Physical Exam Physical Exam Vital Signs Vital Signs - First Documented 10/27/21 14:04 Temp 36.0 Pulse 76 Resp 20 B/P (MAP) 168/60 (96) Pulse Ox 100 O2 Delivery Nasal Cannula O2 Flow Rate 2.00 Capillary Refill : Less Than 3 Seconds Height, Weight, BMI Height: 5'5.50" Weight: 195lbs. 0.0oz. 88.482821jr; 33.66 BMI Method:Stated General Appearance: No Apparent Distress, WD/WN, Chronically ill HEENT: PERRL/EOMI, Normal ENT Inspection, Pharynx Normal Neck: Full Range of Motion, Normal Inspection, Non Tender, Supple Respiratory: Lungs Clear, Normal Breath Sounds, No Accessory Muscle Use, No Respiratory Distress Cardiovascular: Regular Rate, Rhythm, No Edema, No Gallop, No JVD, No Murmur, Normal Peripheral Pulses; No Bradycardia, No Tachycardia Gastrointestinal: Normal Bowel Sounds, No Organomegaly, No Pulsatile Mass, Non Tender, Soft Extremity: Normal Capillary Refill, Normal Inspection, Normal Range of Motion, Other (right foot, amputation of all toes. Wound vac in place. No erythema, warmth or drainage to right foot. Post op shoe in place. 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 Assessment/Plan Admission Diagnosis Assessment: Severe debility Falls at home Right breast hematoma from fall impact Severe anemia requiring transfusion without elevated reticulocyte count consulting hematology order Venofer Diabetes insulin-dependent labile control Status post right metatarsal amputation by Dr. Sarmiento 2 weeks ago Hypertension Hyperlipidemia Elevated lactic acidosis without evidence of sepsis Plan: Discharge to inpatient rehab Consult hematology Supportive care Admission Status: Observation Diagnosis/Problems Diagnosis/Problems (1) Weak Status: Acute (2) Type 1 diabetes Status: Acute Qualifiers: Diabetes mellitus complication status: with circulatory complication Diabetes mellitus complication detail: with other circulatory complications Qualified Codes: E10.59 - Type 1 diabetes mellitus with other circulatory complications (3) Anemia Status: Acute Qualifiers: Anemia type: unspecified type Qualified Codes: D64.9 - Anemia, unspecified LIN NORRIS DO Oct 28, 2021 10:46
[2021-10-28] MEDS: ONDANSETRON 4 MG/2 ML (SDV) Z0FRAN IVP PRN (11:02)
[2021-10-28 11:13] LABS: EOSINOPHILS % (MANUAL) 3 %; LYMPHOCYTES % (MANUAL) 40 %; MONOCYTES % (MANUAL) 5 %; NEUTROPHILS % (MANUAL) 52 %
[2021-10-28 11:20] LABS: ANISOCYTOSIS SLIGHT; CRENATED RBC SLIGHT; ELLIPT/OVALOCYTES SLIGHT; MICROCYTOSIS SLIGHT; PLATELET ESTIMATE 70; POIKILOCYTOSIS SLIGHT
[2021-10-28 11:22] LABS: TOXIC GRANULATION/VACUOLAZATIO 2+
[2021-10-28 11:24] LABS: ABSOLUTE RETIC # 11 10e9/uL (24-90); RETICULOCYTE % 0.45 % (0.50-2.40)
[2021-10-28] MEDS ORDERED: NS IV 1000 ML 1,000 ML IV STA (11:34)
[2021-10-28 11:48] VITALS: BP_SYST 150; BP_SYST 184; BP_DIAS 55; BP_DIAS 77
[2021-10-28 12:09] LABS: ABG BASE EXCESS -9.8 MMOL/L (-2.5-2.5); ABG OXYGEN SATURATION 59 % (94-100); ABG PCO2 32 MMHG (35-45); ABG TCO2 16.4 MMOL/L (21.0-31.0)
[2021-10-28 12:10] LABS: ABG PO2 34 MMHG (79-93)
[2021-10-28 12:11] LABS: ALLENS TEST YES-POS; INSPIRED O2 RA; PATIENT TEMP 37; VENTILATOR NO
[2021-10-28] MEDS ORDERED: GABAPENTIN 300 MG (NEURONTIN) CAP PO SCH (13:00)
[2021-10-28] MEDS ORDERED: HYDRALAZINE 50 MG PO SCH (13:00)
[2021-10-28] MEDS ORDERED: HYPOCHLOROUS ACID/NaCl (VASHE) 250 ML IR PRN (13:00)
[2021-10-28] MEDS ORDERED: LINEZOLID (ZYVOX) 600 MG TAB PO SCH (21:00)
[2021-10-29] MEDS ORDERED: CYANOCOBALAMIN 1,000 MCG (VITAMIN B-12) TABLET PO SCH (07:00)
[2021-10-29] MEDS ORDERED: CLOPIDOGREL 75 MG (PLAVIX) TABLET PO SCH (09:00)
[2021-10-29] MEDS ORDERED: METOPROLOL SUCCINATE 200 MG PO SCH (09:00)
--- NOTE | 2021-11-03 20:41 | Physician Query-Final Dx ---
JUSTYNA RUTLEDGE 11/03/212040: Final Diagnosis Give Final Diagnosis Please give Final Diagnosis CARMEN NORRIS DO 11/04/21520: Final Diagnosis Give Final Diagnosis symptomatic anemia JUSTYNA RUTLEDGE Nov 03, 2021 20:41 CARMEN NORRIS DO Nov 04, 2021 05:21
== END 2021-10-28 13:35 ==
LOC: EDUNIT# 13:36 → ER 13:41 → 4TH 15:20
PROVIDERS: ADMIT Internal Medicine; ATTEND Internal Medicine
DX: D64.9 Anemia, unspecified (principal); D69.6 Thrombocytopenia, unspecified; S20.01XA Contusion of right breast, initial encounter; I25.10 Atherosclerotic heart disease of native coronary artery without angina pectoris; I10 Essential (primary) hypertension; M79.7 Fibromyalgia; E78.5 Hyperlipidemia, unspecified; R53.81 Other malaise; E10.40 Type 1 diabetes mellitus with diabetic neuropathy, unspecified; E10.59 Type 1 diabetes mellitus with other circulatory complications; N39.0 Urinary tract infection, site not specified; Z79.82 Long term (current) use of aspirin; Z79.899 Other long term (current) drug therapy; Z79.84 Long term (current) use of oral hypoglycemic drugs; Z79.4 Long term (current) use of insulin; Z79.891 Long term (current) use of opiate analgesic; Z87.891 Personal history of nicotine dependence; Z89.421 Acquired absence of other right toe(s); Z86.16 Personal history of COVID-19; Z98.51 Tubal ligation status; Z82.3 Family history of stroke; Z80.1 Family history of malignant neoplasm of trachea, bronchus and lung; Z83.3 Family history of diabetes mellitus; Z80.8 Family history of malignant neoplasm of other organs or systems
CPT/HCPCS: 36430; 71045; 80048; 80053; 82607; 82805; 82947 ×2; 83540; 83605; 83615; 84145; 84484; 85007; 85014; 85018; 85025 ×2; 85027; 85045; 85055; 86141; 86850; 86900; 86901; 86920; 93005; 99284; G0378; P9016; 36415

== ENCOUNTER 2021-10-28 11:03 | Inpatient (IN) | payer MEDICARE, OTHER ==
[~2021-10-28] VITALS: Ht 165.1 cm; Wt 101.5 kg
[~2021-10-28 11:03] MED LIST changes: +IBUP-2473 PO
[2021-10-28] MEDS ORDERED: diphenhydrAMINE 25 MG TAB (BENADRYL) PO PRN (12:45)
[2021-10-28] MEDS ORDERED: LOPERAMIDE 2 MG (IMODIUM) TABLET PO PRN (12:45)
[2021-10-28] MEDS ORDERED: BISACODYL 10 MG SUPP (DULCOLAX) PR PRN (12:45)
[2021-10-28] MEDS ORDERED: guaiFENesin/CODEINE (ROBITUSSIN AC) 10ML UDC PO PRN (12:45)
[2021-10-28] MEDS ORDERED: CALCIUM CARBONATE 500 MG (TUMS) TAB.CHEW PO PRN (12:45)
[2021-10-28] MEDS ORDERED: FLEET ENEMA ADULT 1 EA BTL PR PRN (12:45)
[2021-10-28] MEDS ORDERED: ALPRAZolam 0.25 MG (XANAX) TAB PO PRN (12:45)
[2021-10-28] MEDS ORDERED: MELATONIN 3 MG TABLET PO PRN (12:45)
[2021-10-28] MEDS ORDERED: ACETAMINOPHEN 325 MG TABLET PO PRN (12:45)
[2021-10-28] MEDS ORDERED: DOCUSATE SODIUM 100 MG (COLACE) CAP PO PRN (12:45)
[2021-10-28] MEDS ORDERED: LACTULOSE SYRUP 10GM/15ML (ENULOSE) 30ML UDC PO PRN (12:45)
--- NOTE | 2021-10-28 14:22 | Occupational Therapy Eval ---
OT Evaluation-General/PLF Medical Diagnosis Admission Date Oct 28, 2021 at 13:30 Medical Diagnosis: anemia/debility Onset Date: Nov 22, 2021 Therapy Diagnosis Therapy Diagnosis: decreased ADL status Height/Weight Height (Feet): 5 Height (Inches): 5.50 Weight (Pounds): 195 Weight (Ounces): 0.0 Weight Bear Status Patient's weight bearing status is unclear. She will be treated as NWB on the right foot until this is cleared up. Patient states that at home her doctor told her to be NWB on the right foot except for short distances like going to the restroom. Referral Physician: Dinora Referral Reason: Evaluation/Treatment Medical History Pertinent Medical History: CAD, DM, HTN, Neuropathy, PVD Additional Medical History CAD, amputation, coronary stent, neuropathy, fibromyalgia, DM, R toe am putations, COVID-19 09/03 Current History All toes on R foot amputated several months ago. In September, pt underwent a partial resection of 1st metatarsal due to osteomyelitis. Pt transferred to [facility] 10/28/21 for skilled therapy and continued medication management. Social History Home: Single Level Current Living Status: Spouse Entry Into Home: Stairs With Railing Steps Into Home: 3 ADL-Prior Level of Function SCALE: Activities may be completed with or without assistive devices. 4-Cspzjqihky-hbsaznb completes the activity by him/herself with no assistance from a helper. 5-Set-up or Clean-up Assistance-helper sets up or cleans up; patient completes activity. [place] assists only prior to or following the activity. 4-Supervision or Touching Assistance-helper provides verbal cues and/or touching/steadying and/or contact guard assistance as patient completes activity. Assistance may be provided throughout the activity or intermittently. 3-Partial/Moderate Assistance-helper does LESS THAN HALF the effort. [place] lifts, holds or supports trunk or limbs, but provides less than half the effort. 2-Substantial/Maximal Assistance-helper does MORE THAN HALF the effort. [place] lifts or holds trunk or limbs and provides more than half the effort. 3-Syrzdpxoa-fsqngn does ALL the effort. Patient does none of the effort to complete the activity. Or, the assistance of 2 or more helpers is required for the patient to complete the activity. If activity was not attempted, code reason: 7-Patient Refused. 9-Not Applicable-not attempted and the patient did not perform the activity before the current illness, exacerbation or injury. 10-Not Attempted due to Environmental Limitations-(lack of equipment, weather restraints, etc.). 88-Not Attempted due to Medical Conditions or Safety Concerns. ADL PLOF Comments Pt reports IND with ADLs and functional mobility at PLOF, using a walker. Pt had a shower chair but reports it is broken Self Care: Independent Functional Cognition: Independent DME/Equipment: Shower DME/Equipment Comments walker OT Current Status Subjective Pt agreeable to OT evaluation and OT/PT cotreat. Mental Status/Objective Patient Orientation: Person, Place, Situation Attachments: Drains (wound vac R Foot) Current Hand Dominance: Right Upper Extremity ROM WFL Upper Extremity Coordination WFL Upper Extremity Strength grossly 3+/5 ADL-Treatment Eating (QC): 6 (Per pt report. ) Oral Hygiene (QC): 6 (IND seated at sink) Shower/Bathe Self (QC): 4 (SBA) Upper Body Dressing (QC): 5 (set up assist) Lower Body Dressing (QC): 3 (Min A with threading RLE) On/Off Footwear (QC): 2 (Max A with gripper socks, R surgical shoe, and L velcro shoe.) Toileting Hygiene (QC): 4 (SBA) Other Treatments OT evaluation complete. OT/PT cotreat due to skill of 2 clinicians required which a rehabilitation teacher could not perform in order to coordinate UE/LEs, decrease fall risk, and due to pt's limitations in strength, mobility, activity tolerance, and mobility. OT focused on ADL placement, cues for sequencing and safety, and UE placement, PT focused on LE placement, gross overall movement, transfers/mobility. Pt performed functional transfers, car transfer, ambulation, uneven surface, step and bed mobility, as well as w/c mobility. Pt taken into her room, transferred to SC. Pt completed dressing and sponge bath as outlined above. Pt transferred to w/c, and sat at sink for oral care. Pt taken to therapy gym, trialed knee scooter (CGA 40'), then propelled w/c from therapy gym back to her room. Pt transferred to EOB. Post tx, pt EOB, call light in reach and all needs met. Pt independent with rolling and supine to/from sit, CGA sit to/from stand, CGA car transfers, occasional cues for positioning and safety. Education OT Patient Education: Correct positioning, Energy conservation, Exercise program, Modified ADL techniques, Progress toward Goal/Update tx plan, Purpose of tx/functional activities, Rehab process Teaching Recipient: Patient Teaching Methods: Discussion Response to Teaching: Verbalize Understanding OT Short Term Goals Short Term Goals Time Frame: Nov 08, 2021 Lower body dressin Putting on/taking off footwear: 3 OT Jail Goals Live In Companion Goals Time Frame: Nov 22, 2021 Eating (QC): 6 Oral Hygiene (QC): 6 Toileting Hygiene (QC): 6 Shower/Bathe Self (QC): 5 Upper Body Dressing (QC): 6 Lower Body Dressing (QC): 6 On/Off Footwear (QC): 6 Additional Goals: 1-Demonstrate ADL Tasks, 2-Verbalize Understanding, 3- ImproveStrength/Key 1=Demonstrate adherence to instructed precautions during ADL tasks. 2=Patient will verbalize/demonstrate understanding of assistive devices/modifications for ADL. 3=Patient will improve strength/tolerance for activity to enable patient to perform ADL's. OT Education/Plan Problem List/Assessment Assessment: Decreased Activ Tolerance, Decreased UE Strength, Impaired Funct Balance, Impaired I ADL's, Impaired Self-Care Skills Discharge Recommendations Plan/Recommendations: Continue POC Equpiment Recommendations-D/C: Bath Chair Treatment Plan/Plan of Care Patient would benefit from OT for education, treatment and training to promote independence in ADL's, mobility, safety and/or upper extremity function for ADL's. Plan of Care: ADL Retraining, Functional Mobility, Group Exercise/Act as Ind, UE Funct Exercise/Act Treatment Duration: Nov 22, 2021 Frequency: At least 5 of 7 days/Wk (IRF) Estimated Hrs Per Day: 1.5 hours per day Agreement: Yes Rehab Potential: Fair Time/GCodes Start Time: 13:40 Stop Time: 15:10 Total Time Billed (hr/min): 90 Billed Treatment Time 6151-1531 OT eval, [id number] OT/PT cotreat 1, EVM (10'), ADL 3 (40'), FA 2 (40') BRIANA LYLE OT Oct 28, 2021 14:22
--- NOTE | 2021-10-28 15:03 | Physical Therapy Evaluation ---
PT Evaluation-General Medical Diagnosis Admission Date Oct 28, 2021 at 13:30 Medical Diagnosis: anemia/debility Onset Date: Nov 22, 2021 Therapy Diagnosis Therapy Diagnosis: impaired mobility, strength, endurance Height/Weight Height (Feet): 5 Height (Inches): 5.50 Weight (Pounds): 195 Weight (Ounces): 0.0 Precautions Precautions/Isolations: Fall Prevention, Standard Precautions Weight Bear Status Patient's weight bearing status is unclear. She will be treated as NWB on the right foot until this is cleared up. Patient states that at home her doctor told her to be NWB on the right foot except for short distances like going to the restroom. Referral Physician: Lin Farias DO Reason for Referral: Evaluation/Treatment Medical History Pertinent Medical History: CAD, DM, HTN, Neuropathy, PVD Additional Medical History toe amputations right side Reviewed History: Yes Social History Home: Single Level Current Living Status: Spouse Entry Into Home: Stairs With Railing PT Steps Into Home: 3 Prior Prior Level of Function SCALE: Activities may be completed with or without assistive devices. 7-Kotfpbwxxe-urkxnpz completes the activity by him/herself with no assistance from a helper. 5-Set-up or Clean-up Assistance-helper sets up or cleans up; patient completes activity. [place] assists only prior to or following the activity. 4-Supervision or Touching Assistance-helper provides verbal cues and/or touching/steadying and/or contact guard assistance as patient completes ac tivity. Assistance may be provided throughout the activity or intermittently. 3-Partial/Moderate Assistance-helper does LESS THAN HALF the effort. [place] lifts, holds or supports trunk or limbs, but provides less than half the effort. 2-Substantial/Maximal Assistance-helper does MORE THAN HALF the effort. [place] lifts or holds trunk or limbs and provides more than half the effort. 2-Yzwgxgbmx-yjbgou does ALL the effort. Patient does none of the effort to complete the activity. Or, the assistance of 2 or more helpers is required for the patient to complete the activity. If activity was not attempted, code reason: 7-Patient Refused. 9-Not Applicable-not attempted and the patient did not perform the activity before the current illness, exacerbation or injury. 10-Not Attempted due to Environmental Limitations-(lack of equipment, weather restraints, etc.). 88-Not Attempted due to Medical Conditions or Safety Concerns. Bed Mobility: 6 Transfers (B,C,W/C): 6 Gait: 6 Stairs: 6 Indoor Mobility (Ambulation): Independent Stairs: Independent Prior Devices Use: Walker PT Evaluation-Current Subjective Patient in bed pre tx, agrees to PT, has no complaints of pain, patient states her feet are numb and have been for years. Pt/Family Goals to be independent at home Objective Patient Orientation: Person, Place, Situation RLE wound vac ROM/Strength ROM Lower Extremities WNL Strength Lower Extremities grossly 4/5 BLE Sensory Vision: Wears Glasses Hearing: Functional Hand Dominance: Right Sensation Right Lower Extremit: Impaired Sensation Left Lower Extremity: Impaired Transfers Roll Left & Right (QC): 6 Sit to Lying (QC): 6 Lying to Sitting/Side of Bed(Q: 6 Sit to Stand (QC): 4 Chair/Zmr-oi-Lytvb Xfer(QC): 4 Toilet Transfer (QC): 4 Car Transfer (QC): 4 Patient performs rolling and supine <-> sit with independence, sit <-> stand and transfers with CGA, car transfer CGA. Patient needs occasional cues for positioning and safety during transfers. Gait Does the Patient Walk?: Yes Mode of Locomotion: Both Anticipated Mode of Locomotion: Both Walk 10 feet (QC): 4 Walk 50 ft with 2 Turns(QC): 88 Walk 150 ft (QC): 88 Walking 10ft/uneven surface-QC: 4 Distance: 20' Gait Assistive Device: FWW Comments/Gait Description Patient can ambulate 20' with a rolling walker with CGA (including 10' over an uneven surface). Patient seems to be totally non-compliant with NWB on the right foot. Patient can also propel a knee scooter 40' with CGA Wheelchair Training Does the Pt Use a Wheelchair?: Yes Distance: 100'x2 Wheel 50 ft with 2 turns (QC): 4 Wheel 150 ft (QC): 88 Type of Wheelchair: Manual Patient can propel a manual WC 100' with SBA, cues for direction Stairs #of Steps: 1 1 Step (curb) (QC): 4 4 Steps (QC): 88 12 Steps (QC): 88 Walking Assistive Device: Walker Patient can go up and down 1 step using a rolling walker with CGA, cues for foot placement Balance Sitting Static: Normal Sitting Dynamic: Normal Standing Static: Fair Standing Dynamic: Fair Picking up an Object (QC): 4 Treatment PT performed bed mobility and transfers, ambulation, stair training, WC mobility, standing and safety during bathing and dressing, OT performed bathing, dressing, ADL's, UE positioning and safety during activity Assessment/Needs Patient sitting EOB post tx with nurse call, phone, tray, all needs met. Patient has impaired mobility, strength, endurance. She is not compliant with NWB on right foot, however she is able to use a knee scooter at a beginner level, patient states she has some experience using a knee scooter. Rehab Potential: Fair PT Short Term Goals Short Term Goals Time Frame: Nov 04, 2021 Roll Left & Right: 6 Sit to lyin Lying to sitting on side of be: 6 Sit to stand: 4 (SBA) Chair/phe-yn-etlbc transfer: 4 (SBA) Walk 10 feet: 4 (SBA) Walk 50 feet with two turns: 4 (SBA) PT Bagel Maker Goals Custodial Goals PT Bagel Maker Goals Time Frame: Nov 18, 2021 Roll Left & Right (QC): 6 Sit to Lying (QC): 6 Lying-Sitting on Side/Bed(QC): 6 Sit to Stand (QC): 5 Chair/Wbh-if-Zalrx Xfer(QC): 5 Toilet Transfer (QC): 5 Car Transfer (QC): 5 Does the Patient Walk: Yes Walk 10 feet (QC): 4 Walk 50ft with 2 Turns (QC): 4 Walk 150 ft (QC): 4 Walking 10ft on Uneven Surface: 4 1 Step (curb) (QC): 4 4 Steps (QC): 4 12 Steps (QC): 88 Picking up an Object (QC): 4 Wheel 50 feet with 2 turns (QC: 6 Wheel 150 feet: 6 ambulation goals are for the knee scooter or if her weight bearing restrictions change PT Plan Problem List Problem List: Activity Tolerance, Functional Strength, Safety, Balance, Gait, Transfer, Bed Mobility, ROM Treatment/Plan Treatment Plan: Continue Plan of Care Treatment Plan: Bed Mobility, Education, Functional Activity Key, Functional Strength, Group Therapy, Gait, Safety, Therapeutic Exercise, Transfers Treatment Duration: Nov 18, 2021 Frequency: At least 5 of 7 days/Wk (IRF) Estimated Hrs Per Day: 1.5 hours per day Patient and/or Family Agrees t: Yes Safety Risks/Education Patient Education: Gait Training, Transfer Techniques, Steps, Correct Positioning, W/C Management, Safety Issues Teaching Recipient: Patient Teaching Methods: Demonstration, Discussion Response to Teaching: Reinforcement Needed Discharge Recommendations Plan Patient will perform bed mobility and transfer training, balance and endurance training, functional strengthening, stair training, gait training, and education, to improve functional mobility and independence at home. Therapy Discharge Recommendati: Home & Family, Post Acute PT Time/GCodes Time In: 1330 Time Out: 1510 Total Billed Treatment Time: 90 Total Billed Treatment 1 visit EVM 10' FA 80' PT eval from [id number], OT eval from [id number], co-treat from [id number] FAVIOLA MEZA PT Oct 28, 2021 15:03
--- NOTE | 2021-10-28 15:31 | Wound Care Assessment ---
Wound Care Assessment Date Seen by Provider: Oct 28, 2021 Time Seen by Provider: 15:25 Chief Complaint R. forefoot stump ulcer with osteomyelitis HPI This pleasant 66 year old female was admitted to the hospital for blood transfusion. 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 WC in July positive for MRSA. She most recently had further debridement and drainage of associated abscess per Dr. Sarmiento. She is now with a wound vac. She has nearly completed 6 weeks of oral linezolid. She could not afford outpatient IV antibiotic therapy. Following her latest surgery she developed post-operative anemia (pre-op labs was Hgb >10 and post op 5.5). She received 2 U PRBC's recently per PCP. Follow up CBC late in week with Hgb 7.3. In office, we have tried puraply, iodoform packing, silver alginate and cadexomer iodine dressings. She has also been approved for HBOT but has declined due to transportation. She has does well with her wound vac with improvement in wound bed since initiation. There are no signs on exam today of continued bleeding and the wound bed looks pink and mostly viable. Past Medical History: Admits Diabetes Type II, Admits Heart Disease, Admits Peripheral Artery Disease RA, peripheral neuropathy Recreational Drug Use: No Review of Systems General: Fatigue, Appetite Pulmonary: Dyspnea Cardiovascular: Edema Gastrointestinal: Nausea Neurological: Weakness Exam Capillary Refill : General Appearance: no apparent distress, obese, other ([id number]) Cardiovascular: other (1+ edema b/l) Respiratory: no respiratory distress, no accessory muscle use Extremities: normal range of motion, pedal edema Neurologic/Psychiatric: alert, normal mood/affect, oriented x 3 Skin: warm/dry, pallor Skin Character: other (diabetic foot ulcer) Wound assessment: 4x1.9x1.9cm. The epithelialization is small, there is no tunneling or undermining, drainage is large and serosanguinous, granulation is large and pink, necrotic is small and slough, wound margins show epibole. Assessment/Plan/Dx Assessment 1. WG3 diabetic foot ulcer with stump failure and osteomyelitis 2. Anemia of blood loss 3. PAD 4. DM2 Plan 1. Continue wound vac therapy (changes 3 times weekly). Off load with knee scooter or CAM. Surgical shoe if no other options 2. PT for strengthening per rehab team 3. Good glycemic control NESSA TURCIOS MD Oct 28, 2021 15:31
--- NOTE | 2021-10-28 17:07 | PM&R Post Admission Assessment ---
PM&R HP Date of Visit: Oct 28, 2021 Time of Visit: 18:00 History of Present Illness CC: Severe anemia symptomatic HPI: 66 yr old WF clinic pt of [facility] status post right foot metatarsal amputation by Dr. Sarmiento two weeks ago. Subsequently has had a real struggle with anemia due to acute blood loss. Wound vac remains in place. She was given one unit of blood and increased from 6.6 to 7.7 now it is 7.3 today. We will hep lock the IV flu id. B12 level will be checked and I will give her a B12 injection and an iron infusion. She met criteria for in-patient rehab so she will be coming down to increase strength due to severe debility. I will monitor her hemoglobin and she will complete her iron infusions. We will prevent falls since she already has a hematoma on her right breast from recent fall. and son at the bedside. Hematology will be consulted due to lack of elevated reticulocyte count considering the severity of anemia. Past Annmidn-Rdbesl-Xlgvbh Hx Past Med/Social Hx: Reviewed Nursing Past Med/Soc Hx, Reviewed and Corrections made Patient Social History Marrital Status: Employed/Student: retired Alcohol Use: Denies Use Recreational Drug Use: No Smoking Status: Former Smoker Former Smoker, Quit: Apr 27, 1990 Type Used: Cigarettes 2nd Hand Smoke Exposure: Yes Recent Hopitalizations: No Immunizations Up To Date Tetanus Booster (TDap): Unknown Pediatric: No Date of Pneumonia Vaccine: Oct 15, 2018 Date of Influenza Vaccine: Jun 14, 2021 Seasonal Allergies Seasonal Allergies: No Past Medical History Surgeries: Amputation, Coronary Stent, Tubal Ligation, Vascular Surgery Respiratory: Pneumonia Currently Using CPAP: No Currently Using BIPAP: No Cardiac: Coronary Artery Disease Neurological: Neuropathy 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: No Sexually Transmitted Disease: No HIV/AIDS: No Female 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 Disorders: Denies Menopausal Genitourinary: UTI-Chronic Gastrointestinal: Gall Bladder Disease Musculoskeletal: Amputee, Fibromyalgia Endocrine: Diabetes, Insulin dep Loss of Vision: Denies Hearing Impairment: Denies History of Blood Disorders: No Adverse Reaction to Blood [place]: No (N/A) Family History Cardiovascular disease 19 MOTHER, G8 BROTHER G8 BROTHER Completed stroke 19 MOTHER, Diabetes mellitus 19 FATHER, 19 MOTHER, G8 BROTHER G8 SISTER FH: brain tumor FH: breast cancer 19 MOTHER, FH: lung cancer FHx: peripheral neuropathy Hypertension 19 FATHER, Lung c 19 FATHER, Myocardial infarction 19 MOTHER, Neuro No Pertinent Family Hx Prior Level of Function Bed Mobility: 6 Transfers: 6 Gait: 6 Stairs: 6 Indoor Mobility (Ambulation): Independent Stairs: Independent Prior Devices Use: Walker Self Care: Independent Functional Cognition: Independent Current Level of Fuctioning Roll Left to Right: 6 Sit to Lyin Lying to Sitting/Side of Bed: 6 Sit to Stand: 4 Chair/Dmq-iu-Ldgrk Xfer: 4 Car Transfer: 4 Does the Patient Walk: Yes Mode of Locomotion: Both Anticipated Mode of Locomotion: Both Walk 10 feet: 4 Walk 50 ft with 2 Turns: 88 Walk 150 ft: 88 Walking 10ft on uneven surface: 4 Gait Assistive Device: FWW Does the Pt Use a Wheelchair: Yes Wheelchair Distance: 100'x2 Wheel 50 ft with 2 turns: 4 Wheel 150 ft: 88 Type of Wheelchair: Manual #of Steps: 1 1 Step (curb): 4 4 Steps: 88 Walking Assistive Device: Walker 12 Steps: 88 Picking up an Object: 4 Eatin (Per pt report. ) Oral Hygiene: 6 (IND seated at sink) Shower/Bathe Self: 4 (SBA) Upper Body Dressin (set up assist) Lower Body Dressin (Min A with threading RLE) On/Off Footwear: 2 (Max A with gripper socks, R surgical shoe, and L velcro shoe.) Toileting Hygiene: 4 (SBA) PM&R Allergy/Meds/Data Review Allergies Coded Allergies: No Known Drug Allergies (Unverified , 10/28/21) Home Medications Scheduled Ascorbic Acid (Vitamin C), 500 MG PO 1200, (Reported) Aspirin (Aspirin), 81 MG PO DAILY, (Reported) Cholecalciferol (Vitamin D3) (Vitamin D3), 50 MCG PO 1200, (Reported) Clopidogrel Bisulfate (Clopidogrel), 75 MG PO DAILY, (Reported) Docusate Sodium (Stool Softener), 200 MG PO DAILY, (Reported) Gabapentin (Neurontin), 900 MG PO TID, (Reported) Glimepiride (Glimepiride), 4 MG PO BID, (Reported) Hydralazine HCl (Hydralazine HCl), 50 MG PO TID, (Reported) Insulin Aspart (Novolog Flexpen), 13 UNITS SQ TIDWM, (Reported) Insulin Detemir (Levemir Flextouch), 20 UNIT SQ HS, (Reported) Lactobacillus Acidophilus (Probiotic), 2 EACH PO DAILY, (Reported) Linezolid (Linezolid), 600 MG PO BID, (Reported) Liraglutide (Victoza 3-Rigo), 1.8 MG SQ HS, (Reported) Metoprolol Succinate (Metoprolol Succinate), 200 MG PO DAILY, (Reported) Pantoprazole Sodium (Pantoprazole Sodium), 20 MG PO DAILY, (Reported) Zinc Sulfate (Zinc), 50 MG PO 1200, (Reported) Scheduled PRN Ibuprofen (Ibuprofen), 600 MG PO Q6H PRN for PAIN-MILD (1-4), (Reported) Discontinued Medications Hydrocodone/Acetaminophen (Hydrocodone-Acetamin 5-325 mg), 1 TAB PO Q4H PRN for PAIN-MODERATE (5-7) Discontinued Reason: No Longer Taking Current Medications Current Medications Reviewed Laboratory Data Laboratory Tests 10/28/21 16:48: Glucometer 180H Review of Systems Constitutional: see HPI, dizziness, malaise, weakness EENTM: no symptoms reported Respiratory: no symptoms reported Cardiovascular: no symptoms reported Gastrointestinal: no symptoms reported Genitourinary: no symptoms reported Musculoskeletal: back pain Skin: no symptoms reported Psychiatric/Neurological: Anxiety, Depressed All Other Systems Reviewed Negative Unless Noted: Yes Physical Exam Physical Exam Vital Signs Vital Signs - First Documented 10/28/21 15:28 Pulse Ox 99 O2 Delivery Room Air Capillary Refill : Height, Weight, BMI Height: 5'5.50" Weight: 195lbs. 0.0oz. 88.083408do; 76.96 BMI Method:Stated General Appearance: No Apparent Distress, WD/WN, Chronically ill, Obese Eyes: Bilateral Eye Normal Inspection, Bilateral Eye PERRL HEENT: PERRL/EOMI, Normal ENT Inspection, Pharynx Normal Neck: Full Range of Motion, Normal Inspection, Non Tender, Supple, Carotid Bruit Respiratory: Chest Non Tender, Lungs Clear, Normal Breath Sounds, No Accessory Muscle Use, No Respiratory Distress Cardiovascular: Regular Rate, Rhythm, No Edema, No Gallop, No JVD, No Murmur, Normal Peripheral Pulses Gastrointestinal: Normal Bowel Sounds, No Organomegaly, No Pulsatile Mass, Non Tender, Soft Back: Normal Inspection, No CVA Tenderness, No Vertebral Tenderness Extremity: Normal Capillary Refill, Normal Inspection, Normal Range of Motion, Non Tender, No Calf Tenderness, No Pedal Edema Neurologic/Psychiatric: Alert, Oriented x3, No Motor/Sensory Deficits, drafter cartographic II- XII Norm as Tested, Abnormal Gait, Depressed Affect, Motor Weakness (Generalized) Skin: Normal Color, Warm/Dry, Other (Wound VAC in place right metatarsal amputation site) Lymphatic: No Adenopathy PM&R Medical Assessment & Plan REHAB/MEDICAL ASSESSMENT AND PLAN: REHAB IMPAIRMENT GROUP: Debility ETIOLOGIC DIAGNOSIS: Debility The comorbidities that impact the patients function and/or functional outcome b y: Severe anemia, severe weakness, fall risk, wound VAC REHAB PLAN: The patient is being admitted to our comprehensive inpatient rehabilitation facility and can tolerate the intensity of service consisting of at least: 180 minutes of therapy a day, 5 out of 7 days a week Rehab treatment will consist of: PT and OT will focus on increasing use of assistive devices in order to increase ADLs and increase ambulatory ability in order to return back home to be successful in independent living The patient/family has a good understanding of our discharge process and will benefit from an interdisciplinary inpatient rehabilitation program. The patient has potential to make improvement and is in need of at least two of the followi ng multidisciplinary therapies including but not limited to physical, occupational, speech, and prosthetics and orthotics. Additionally the patient will need services from respiratory, nutritional services, wound care, psychology, etc. (Customize this to each patient). Given the patients complex condition and risk of further medical complications, rehabilitation services cannot be safely or effectively provided at a lower level of care such as a [facility] facility. BARRIERS TO DISCHARGE: Severe weakness ESTIMATED LOS: 7 days DISPOSITION: Home RELEVANT CHANGES SINCE PREADMISSION SCREENING: I have compared the patients medical and functional status at the time of the preadmission screening and there are: No changes PROGNOSIS: Fair REHABILITATION GOALS: 1. PT and OT will focus on increasing use of assistive devices in order to increase ADLs and increase ambulatory ability in order to return back home to be successful in independent living All the above goals were reviewed with the patient and he/she is in agreement. By signing this document, I acknowledge that I have personally performed a full physical examination on this patient within 24 hours of admission to this inpatient rehabilitation facility and have determined the patient to be able to tolerate the above course of treatment at an intensive level for a reasonable period of time. I will be completing a detailed individualized Plan of Care for this patient by day #4 of the patients stay based upon the Preadmission Screen, the Post-Admission Evaluation, and the therapy evaluations. 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 Sarmiento Hypertension Hyperlipidemia Fibromyalgia Depression Lactic acidosis without evidence of sepsis Plan: Supportive care Transfuse as necessary Consult hematology Iron infusions CARMEN NORRIS DO Oct 28, 2021 17:07
--- NOTE | 2021-10-28 17:16 | Oncology Consultation ---
Visit Information Visit Information Date of Admission Oct 28, 2021 at 13:30 Attending Physician Lin Farias DO Admitting Physician [facility] Chief Complaint Anemia in the setting of chronic wound and on wound vac. Interval History 66 year old female with h/o CAD 5 vessels disease and bypass on plavix and ASA, DM and right foot chronic ulcer and myelolitis. She had right toes amputation by Dr Olsen 09/30/2021 complicated with bleeding for over 2 days and "it was bad" by patient report. Her WBC and Plt were normal and Hb was 10.9 before the surgery 09/30/2021. She was off Plavix for 5 days before the surgery. Her Hb was dropped to 5.5 on 10/07/2021 with severe SOB and not able to move from the bed to bathroom. She had 1 unit of RBC transfusion on 10/07/2021 and Hb was properly up to 6.7 next day. She then had another unit of RBC on 10/08/2021. Her Hb stayed around 7 and still SOB on minimal exertion. Her plt was also decreasing from 187k 09/30/2021 to 68k 10/28/2021. She was admitted yesterday for rehab. She is on wound care with wound vac. She is also on plavix and ASA as well as zyvox. I consulted the patient on: 10/28/21 17:13 Time Seen by Provider: 12:00 Review of Systems Constitutional: see HPI Health Status Allergies Coded Allergies: No Known Drug Allergies (Unverified , 10/28/21) Home Medications Ascorbic Acid (Vitamin C) 500 Mg Tablet, 500 MG PO 1200, (Reported) Aspirin (Aspirin) 81 Mg Tab.chew, 81 MG PO DAILY, (Reported) Cholecalciferol (Vitamin D3) (Vitamin D3) 50 Mcg Capsule, 50 MCG PO 1200, (Reported) Clopidogrel Bisulfate (Clopidogrel) 75 Mg Tablet, 75 MG PO DAILY, (Reported) Docusate Sodium (Stool Softener) 100 Mg Capsule, 200 MG PO DAILY, (Reported) Gabapentin (Neurontin) 300 Mg Capsule, 900 MG PO TID, (Reported) TAKES 3 (300MG) CAPSULES Glimepiride (Glimepiride) 4 Mg Tablet, 4 MG PO BID, (Reported) Hydralazine HCl (Hydralazine HCl) 50 Mg Tablet, 50 MG PO TID, (Reported) Ibuprofen (Ibuprofen) 200 Mg Tablet, 600 MG PO Q6H PRN for PAIN-MILD (1-4), (Reported) TAKES 3 (200MG) TABLETS Insulin Aspart (Novolog Flexpen) 300 Units/3 Ml Solution, 13 UNITS SQ TIDWM, (Reported) Insulin Detemir (Levemir Flextouch) 100 Unit/1 Ml Insuln.pen, 20 UNIT SQ HS, (Reported) Lactobacillus Acidophilus (Probiotic) 1 Each Capsule, 2 EACH PO DAILY, (Reported) Linezolid (Linezolid) 600 Mg Tablet, 600 MG PO BID, (Reported) FILLED 10-07-2021 #60/30 DAY SUPPLY Liraglutide (Victoza 3-Irgo) 0.6 Mg/0.1 Ml Pen.injctr, 1.8 MG SQ HS, (Reported) Metoprolol Succinate (Metoprolol Succinate) 200 Mg Tab.er.24h, 200 MG PO DAILY, (Reported) Pantoprazole Sodium (Pantoprazole Sodium) 20 Mg Tablet.dr, 20 MG PO DAILY, (Reported) Zinc Sulfate (Zinc) 50 Mg Tablet, 50 MG PO 1200, (Reported) DCD-Ysbkvf-Qyrpie Hx Patient Social History Smoking Status: Former Smoker Type Used: Cigarettes 2nd Hand Smoke Exposure: Yes Recent Hopitalizations: No Alcohol Use?: No Have you traveled recently?: No Immunizations Up To Date Tetanus Booster (TDap): Unknown Date of Pneumonia Vaccine: Oct 15, 2018 Date of Influenza Vaccine: Jun 14, 2021 Family Medical History Significant Family History: No Pertinent Family Hx Family History: Cardiovascular disease 19 MOTHER, G8 BROTHER G8 BROTHER Completed stroke 19 MOTHER, Diabetes mellitus 19 FATHER, 19 MOTHER, G8 BROTHER G8 SISTER FH: brain tumor FH: breast cancer 19 MOTHER, FH: lung cancer FHx: peripheral neuropathy Hypertension 19 FATHER, Lung c 19 FATHER, Myocardial infarction 19 MOTHER, Neuro Physical Exam Vital Signs Vital Signs - First Documented 10/28/21 10/28/21 15:28 20:00 Temp 36.4 Pulse 69 Resp 18 B/P (MAP) 180/75 (110) Pulse Ox 99 O2 Delivery Room Air Capillary Refill : Height, Weight, BMI Height: 5'5.50" Weight: 195lbs. 0.0oz. 88.250821py; 76.96 BMI Method:Stated General Appearance: No Apparent Distress HEENT: PERRL/EOMI Respiratory: No Accessory Muscle Use, No Respiratory Distress Cardiovascular: Regular Rate, Rhythm Gastrointestinal: Non Tender, Soft Extremity: Swelling, Other (right foot covered with wound vac) Neurologic/Psychiatric: Alert, Oriented x3 Data Review Labs Laboratory Tests 10/29/21 06:34 Laboratory Tests 10/28/21 16:48: Glucometer 180H 10/28/21 21:41: 10/29/21 06:00: Glucometer 37*L 10/29/21 06:34: Red Blood Count 2.53L, Hemoglobin 7.5L, Hematocrit 24L, Red Cell Distribution Width 15.1H, Platelet Count 71L, Chloride Level 110H, Carbon Dioxide Level 16L, Blood Urea Nitrogen 37H, Total Protein 6.3L 10/29/21 06:42: 10/29/21 09:10: Lactic Acid Level 6.79*H 10/29/21 11:25: Glucometer 127H 10/29/21 11:26: Lactic Acid Level 6.52*H Impression & Plan Impression & Plan Imp: 1. Anemia due to the blood loss and infection/chronic illness. 2. Low on iron and saturation suggesting iron deficiency due to blood loss. Ferritin high due to the chronic infection/inflammation. 3. Chronic ulcer of R. forefoot with persistent osteomyelitis s/p amputation Sep 2021 and is under wound care and wound vac. 4. Thrombocytopenia due to infection and ?other causes 5. CAD, 5 vessels disease on plavix and ASA. Rec: 1. IV iron venofer 200mg IV every other day x 5 doses. 2. Please discuss with lithographed plate inspector to see if possible to hold of plavix and ASA for 2 weeks while she is severe anemic and thrombocytopenia. Resume ASA when Plt return to normal and then resume plavix when Hb is above 10. 3. GI protection with Carafate 1g tid for 2 weeks. 4. I anticipate she will respond to the IV iron in 1-2 weeks. If not, then consider marrow exam. Thank you for the consultation. SUE FREY MD Oct 28, 2021 17:16
[2021-10-28] MEDS ORDERED: INSULIN ASPART SQ SCH (18:00)
[2021-10-28] MEDS: GLIMEPIRIDE 4 MG (AMARYL) TAB PO SCH (18:00)
[2021-10-28] MEDS: inSUlin ASPART (NovoLOG) 1 UNIT/0.01 ML (CHARGE PER UNIT) SC SCH ×2 (18:00→21:57)
[2021-10-28] MEDS: NS IV 1000 ML 1,000 ML IV SCH (18:46)
[2021-10-28] MEDS: ONDANSETRON 4 MG (ZOFRAN) ORAL DISSOLVE TAB PO PRN (18:49)
[2021-10-28 20:00] VITALS: BP_SYST 146; BP_SYST 180; BP_DIAS 69; BP_DIAS 75
[2021-10-28] MEDS ORDERED: NON-FORMULARY MEDICATION 1 EA EA (Liraglutide (Victoza 3-Pak) 1.8 MG) SQ SCH (21:00)
[2021-10-28] MEDS ORDERED: NON-FORMULARY MEDICATION 1 EA EA (Insulin Detemir (Levemir Flextouch) 20 UNIT) SQ SCH (21:00)
[2021-10-28] MEDS ORDERED: NON-FORMULARY MEDICATION 1 EA EA (Hydralazine HCl 50 MG) PO SCH (21:00)
[2021-10-28] MEDS ORDERED: DOCUSATE SODIUM 100 MG (COLACE) CAP PO SCH (21:00)
[2021-10-28] MEDS: LINEZOLID (ZYVOX) 600 MG TAB PO SCH (21:42)
[2021-10-28] MEDS: hydrALAZINE (APRESOLINE) 25 MG TAB PO SCH (21:42)
[2021-10-28] MEDS: SENNA W/DOCUSATE (SENOKOT S) TABLET PO SCH (21:42)
[2021-10-28] MEDS: GABAPENTIN 300 MG (NEURONTIN) CAP PO SCH (21:42)
[2021-10-28] MEDS: polyethylene glycoL POWDER 17 GM (MIRALAX) PACK PO SCH (21:57)
[2021-10-29] MEDS: NS IV 1000 ML 1,000 ML IV SCH (04:31)
--- NOTE | 2021-10-29 06:07 | PM&R Progress Note ---
Subjective HPI/CC On Admission Date Seen by Provider: Oct 29, 2021 Time Seen by Provider: 09:00 Subjective/Events-last exam 10/29/2021: Pt is doing a little better Still very SOB Hemoglobin remains low at 7.6 Hematology consult today Hep locking IV fluid Hypoglycemia noted, which she does get low at home Murmur is noted but Dr. Lemus manages that so I will have cardiology see her Lactic acid still remains and I did medication evaluation and found Zyvox to likely be the cause so we will hold that and notify Dr. Hodges who has placed her on that Labile sugars are very concerning We will hold oral hypoglycemic agent to see if we can decrease hypoglycemic episodes and will hold all insulin for now and only do sliding scale Very complex issues Review of Systems General: Fatigue, Malaise Pulmonary: Dyspnea Musculoskeletal: foot pain Focused Exam Lactate Level 10/29/21 09:10: Lactic Acid Level 6.79*H 10/29/21 11:26: Lactic Acid Level 6.52*H Objective Exam Vital Signs Vital Signs Date Time Temp Pulse Resp B/P (MAP) Pulse Ox O2 Delivery O2 Flow Rate FiO2 10/29/21 20:30 Room Air 10/29/21 20:00 36.2 73 20 184/79 (114) 97 Capillary Refill : General Appearance: No Apparent Distress, WD/WN, Chronically ill, Obese HEENT: PERRL/EOMI, Normal ENT Inspection, Pharynx Normal Neck: Full Range of Motion, Normal Inspection, Non Tender, Supple, Carotid Bruit Respiratory: Chest Non Tender, Lungs Clear, Normal Breath Sounds, No Accessory Muscle Use, No Respiratory Distress Cardiovascular: Regular Rate, Rhythm, No Edema, No Gallop, No JVD, Normal Peripheral Pulses, Systolic Murmur Gastrointestinal: Normal Bowel Sounds, No Organomegaly, No Pulsatile Mass, Non Tender, Soft Back: Normal Inspection, No CVA Tenderness, No Vertebral Tenderness Extremity: Normal Capillary Refill, Normal Inspection, Normal Range of Motion, Non Tender, No Calf Tenderness, No Pedal Edema Neurologic/Psychiatric: Alert, Oriented x3, No Motor/Sensory Deficits, service order taker II- XII Norm as Tested, Abnormal Gait, Depressed Affect, Motor Weakness (Generalized ) Skin: Normal Color, Warm/Dry, Other (Wound VAC in place right metatarsal amp utation site) Lymphatic: No Adenopathy Results/Procedures Lab Laboratory Tests 10/29/21 06:34 Patient resulted labs reviewed. FIM Transfers Therapy Code Descriptions/Definitions Functional [place] Measure: 0=Not Assessed/NA 4=Minimal Assistance 1=Total Assistance 5=Supervision or Setup 2=Maximal Assistance 6=Modified [place] 3=Moderate Assistance 7=Complete IndependenceSCALE: Activities may be completed with or without assistive devices. 9-Qeumlmdsgx-fvhdcsm completes the activity by him/herself with no assistance from a helper. 5-Set-up or Clean-up Assistance-helper sets up or cleans up; patient completes activity. D Hanis assists only prior to or following the activity. 4-Supervision or Touching Assistance-helper provides verbal cues and/or touching/steadying and/or contact guard assistance as patient completes activity. Assistance may be provided throughout the activity or intermittently. 3-Partial/Moderate Assistance-helper does LESS THAN HALF the effort. D Hanis lifts, holds or supports trunk or limbs, but provides less than half the effort. 2-Substantial/Maximal Assistance-helper does MORE THAN HALF the effort. D Hanis lifts or holds trunk or limbs and provides more than half the effort. 3-Gqvzmtlfn-rtddcl does ALL the effort. Patient does none of the effort to complete the activity. Or, the assistance of 2 or more helpers is required for the patient to complete the activity. If activity was not attempted, code reason: 7-Patient Refused. 9-Not Applicable-not attempted and the patient did not perform the activity before the current illness, exacerbation or injury. 10-Not Attempted due to Environmental Limitations-(lack of equipment, weather restraints, etc.). 88-Not Attempted due to Medical Conditions or Safety Concerns. Roll Left to Right (QC): 6 Sit to Lying (QC): 6 Sit to Stand (QC): 4 Chair/Auf-cu-Mvfgk Xfer(QC): 4 Car Transfer (QC): 4 Gait Training Does the Patient Walk?: Yes Walk 10 feet (QC): 4 Walk 50 ft with 2 Turns(QC): 88 Walk 150 ft (QC): 88 Walking 10ft/uneven surface-QC: 4 Gait Assistive Device: FWW Wheelchair Training Does the Pt Use a Wheelchair?: Yes Distance: 100'x2 Wheel 50 ft with 2 turns (QC): 4 Wheel 150 ft (QC): 88 Type of Wheelchair: Manual Stair Training #of Steps: 1 1 Step (curb) (QC): 4 4 Steps (QC): 88 12 Steps (QC): 88 Balance Picking up an Object (QC): 4 ADL-Treatment Eating (QC): 6 (Per pt report. ) Oral Hygiene (QC): 6 (IND seated at sink) Shower/Bathe Self (QC): 4 (SBA) Upper Body Dressing (QC): 5 (set up assist) Lower Body Dressing (QC): 3 (Min A with threading RLE) On/Off Footwear (QC): 2 (Max A with gripper socks, R surgical shoe, and L velcro shoe.) Toileting Hygiene (QC): 4 (SBA) Assessment/Plan Assessment and Plan Assess & Plan/Chief Complaint Assessment: Debility Severe anemia status post transfusion Severe iron deficiency anemia Diabetes mellitus brittle control Status post right metatarsal amputation [address] Sarmiento Hypertension Hyperlipidemia Fibromyalgia Depression Lactic acidosis without evidence of sepsis likely due to Zyvox holding today 10/29/2021 after tonight's dose Hypoglycemic episodes holding oral glycemic agent and insulin insulin doing sliding scale starting 10/29/2021 nighttime Plan: Supportive care Transfuse as necessary Consult hematology Iron infusions 10/29/2021: Iron infusions Hold oral hypoglycemic agent and insulin due to hypoglycemic episodes Cardiology and hematology initiated Hold Zyvox due to lactic acidosis (1) Weak Status: Acute (2) Anemia Status: Acute (3) Type 1 diabetes Status: Acute (4) Osteomyelitis of right foot (5) Diabetic ulcer of right foot (6) 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
--- NOTE | 2021-10-29 06:07 | Individualized Plan of Care ---
Individualized Plan of Care Rehab Nursing IPOC Order Admission Date Oct 28, 2021 at 13:30 Current Orders Orders Admission Order(Inpt,Obs,Sdc) (10/28/21 12:35) Kenrick Jeffries (10/28/21 12:35) Sequential Compression Device (10/28/21 12:35) Mobile Architect-Inpt Rehab Con (10/28/21 12:35) Rehab Nursing Orders-Ipoc (10/28/21 12:35) Physical Therapy Rehab Orders (10/28/21 12:35) Occupational Therapy Rehab Ord (10/28/21 12:35) Speech Therapy Rehab Orders (10/28/21 12:35) Cbc With Automated Diff (10/29/21 06:00) Comprehensive Metabolic Panel (10/29/21 06:00) Precautions (Aru) (10/28/21 12:35) Weekly Weight WEEK (10/28/21 12:35) Rehab-Intensity Of Therapy (10/28/21 12:35) Initiate Admission Nursing Pro .admission (10/28/21 12:35) Alprazolam Tablet (Xanax Tablet) (10/28/21 12:45) Calcium Carbonate Chew Tablet (Antacid C (10/28/21 12:45) Diphenhydramine Tablet (Benadryl Tablet) (10/28/21 12:45) Docusate Sodium Capsule (Colace Capsule) (10/28/21 21:00) Docusate Sodium Capsule (Colace Capsule) (10/28/21 12:45) Bisacodyl Suppository (Dulcolax Supposit (10/28/21 12:45) Lactulose Oral Solution (Enulose Oral So (10/28/21 12:45) Na Phos/Na Biphos Enema (Fleet Enema Branden (10/28/21 12:45) Guaifenesin/Codeine Syrup (Robitussin Ac (10/28/21 12:45) Loperamide Tablet (Imodium Tablet) (10/28/21 12:45) Melatonin Tablet (Melatonin Tablet) (10/28/21 12:45) Polyethylene Glycol Powder Pkt (Miralax (10/28/21 21:00) Ondansetron Oral Dissolve Tab (Zofran (10/28/21 12:45) Senna S Tablet (Senokot S Tablet) (10/28/21 21:00) Acetaminophen Tablet/Caplet (Tylenol T (10/28/21 12:45) Code/Resuscitation (10/28/21 12:35) Admission Arrival Bed Request (10/28/21 13:30) Patient Visit (10/28/21 ) Pt Eval Moderate Complexity (10/28/21 ) Functional Activities, Ea 15 (10/28/21 ) Weight Bearing Restrictions (10/28/21 15:40) Cho 60g/M 0snack (16-2000 Maxim) (10/28/21 Dinner) Accucheck Achs ACHS (10/28/21 17:05) Insulin Aspart (Novolog) (Novolog (Charg (10/28/21 21:00) Ascorbic Acid Tablet (Vitamin C Tablet) (10/29/21 12:00) Aspirin Chewable Tablet (Baby Aspirin Ch (10/29/21 09:00) Clopidogrel Tablet (Plavix Tablet) (10/29/21 09:00) Docusate Sodium Capsule (Colace Capsule) (10/29/21 09:00) Gabapentin Capsule/Tablet (Neurontin Cap (10/28/21 21:00) Glimepiride Tablet (Amaryl Tablet) (10/28/21 18:00) Linezolid Tablet (Zyvox Tablet) (10/28/21 21:00) Pantoprazole Tablet (Protonix Tablet) (10/29/21 09:00) (Nf) Cholecalciferol (Vitamin D3) (Vitam (10/29/21 12:00) (Nf) Hydralazine Hcl (10/28/21 21:00) (Nf) Insulin Aspart (Novolog Flexpen) (10/28/21 18:00) (Nf) Insulin Detemir (Levemir Flextouch) (10/28/21 21:00) (Nf) Lactobacillus Acidophilus (Probioti (10/29/21 09:00) (Nf) Liraglutide (Victoza 3-Rigo) (10/28/21 21:00) (Nf) Metoprolol Succinate (10/29/21 09:00) (Nf) Zinc Sulfate (Zinc) (10/29/21 12:00) Ns Iv 1000 Ml (Sodium Chloride 0.9%) (10/28/21 17:15) Consult Oncology/Hematology (10/28/21 17:07) Cholecalciferol Capsule/Tablet (Vitamin (10/29/21 12:00) Lactobacillus Acidophilus Cap (Acidophil (10/29/21 09:00) Insulin Aspart (Novolog) (Novolog (Charg (10/28/21 18:00) Insulin Determir (Per Unit) (Levemir (Pe (10/28/21 21:00) Hydralazine Tablet (Apresoline Tablet) (10/28/21 21:00) Metoprolol Succinate (Xl) Tab (Toprol Xl (10/29/21 09:00) Zinc Sulfate Capsule (Zinc 50 Mg Capsule (10/29/21 12:00) Vte Contraindication (10/29/21 06:07) Hemoglobin A1c (10/29/21 08:27) Lactic Acid Analyzer (10/29/21 08:27) Consult Cardiology (10/29/21 08:52) Weight Bearing Restrictions (10/29/21 09:02) Nursing Communication (Order) (10/29/21 09:11) Patient Visit (10/29/21 ) Speech Sound Lang Comp (10/29/21 ) Treat. Speech/Lang/Voice (10/29/21 ) Patient Visit (10/29/21 ) Functional Activities, Ea 15 (10/29/21 ) Exercise Therap, Ea 15 Min (10/29/21 ) Sucralfate Tablet (Carafate Tablet) (10/29/21 16:00) Iron Sucrose Injection (Venofer Injectio (10/31/21 09:00) Nursing Communication (Order) (10/29/21 17:07) Chest Pa/Lat (2 View) (10/30/21 06:00) Echo W Doppler/Color Flow (10/29/21 19:12) Lipid Panel (10/29/21 19:29) Insulin Aspart (Novolog) (Novolog (Charg (10/30/21 06:00) Rehab Nursing Orders: Ongoing Assess. of Cognitive Status, Ongoing Assess. of Function Status, Bladder Management, Bladder Scan, Bladder Training, Bowel Management, Bowel Training, Disease Management & Educaiton, DVT Prophylaxis, Fall Prevention, Fluid/Electrolyte/Nutrition Mgmt, Infection Prevention, Medication Management & Education, Management of Risks & Complications, Management of Skin Intergrity, Nutrition Management, Pain Management, Patient/Family Support, Safety Management, Wound Management Intensity of Therapy to be met Patient to be seen: Min.3h per day/5 of 7d PT IPOC Problem List: Activity Tolerance, Functional Strength, Safety, Balance, Gait, Transfer, Bed Mobility, ROM Treatment Plan: Continue Plan of Care Bed Mobility, Education, Functional Activity Key, Functional Strength, Group Therapy, Gait, Safety, Therapeutic Exercise, Transfers Treatment Duration: Nov 18, 2021 Frequency: At least 5 of 7 days/Wk (IRF) Estimated Hrs Per Day: 1.5 hours per day OT IPOC Problems: Decreased Activ Tolerance, Decreased UE Strength, Impaired Funct Balance, Impaired I ADL's, Impaired Self-Care Skills OT Treatment, Training and Edu: Yes Plan of Care: ADL Retraining, Functional Mobility, Group Exercise/Act as Ind, UE Funct Exercise/Act Treatment Duration: Nov 22, 2021 Frequency: At least 5 of 7 days/Wk (IRF) Estimated Hrs Per Day: 1.[address] IPOC Speech Therapy Treatment Plan: Discontinue ST Treatment Duration: Oct 29, 2021 Frequency: Modified Program (IRF) Estimated Hrs Per Day: Other Mobile Architect/Case Mgmt Mobile Architect/Case Managemen: Discharge Planning Dietitian/Roll Forger Dietitian/Roll Forger to monitor nutritional status and make changes and/or recommendations as needed and work with speech pathology on dietary upgrades as the occur. Physician IPOC Medical Issues being managed closely and that require the 24 hour availability of a physician: Severe anemia requiring transfusions and close monitoring along with iron infusions also with cardiology and hematology consultations required along with labile blood sugars with severe hypoglycemic agents and lactic acidosis work-up in process will require close monitoring from physician's expertise Medical Issues: Bowel/Bladder Function, DVT Prophylaxis, Falls Precautions, Fluid/Electrolyte/Nutrition Balance, Infection Protection, Pain Management, Wound Care Brief Synthesis of Preadmission Screen, Post-Admission Evaluation, and Therapy Evaluations: PT and OT will focus on regaining function with the use of assistive devices in order to increase ADLs and decrease fall risk and return to independent living Medical Prognosis: Fair Anticipated Length of Stay: 7 days CARMEN NORRIS DO Oct 29, 2021 06:07
[2021-10-29] MEDS: inSUlin ASPART (NovoLOG) 1 UNIT/0.01 ML (CHARGE PER UNIT) SC SCH ×7 (06:10→21:10)
[2021-10-29 06:46] LABS: MONOCYTES # (AUTO) 0.4 10^3/uL (0.0-1.0)
[2021-10-29 06:48] LABS: BASOPHILS % (AUTO) 0 % (0-10); EOSINOPHILS # (AUTO) 0.3 10^3/uL (0.0-0.3); EOSINOPHILS % (AUTO) 5 % (0-10); HEMATOCRIT 24 % (35-52); HEMOGLOBIN 7.5 g/dL (11.5-16.0); LYMPHOCYTES # (AUTO) 1.5 10^3/uL (1.0-4.0); LYMPHOCYTES % (AUTO) 26 % (12-44); MEAN CORPUSCULAR HEMOGLOBIN 30 pg (25-34); MEAN CORPUSCULAR HGB CONC 32 g/dL (32-36); MEAN CORPUSCULAR VOLUME 94 fL (80-99); MONOCYTES % (AUTO) 7 % (0-12); NEUTROPHILS # (AUTO) 3.7 10^3/uL (1.8-7.8); NEUTROPHILS % (AUTO) 63 % (42-75); PLATELET COUNT 71 10^3/uL (130-400); WHITE BLOOD COUNT 5.9 10^3/uL (4.3-11.0)
[2021-10-29 07:04] LABS: ALBUMIN 3.6 GM/DL (3.2-4.5); BILIRUBIN,TOTAL 0.4 MG/DL (0.1-1.0); CALCIUM 8.7 MG/DL (8.5-10.1); CREATININE SERUM 1.1 MG/DL (0.60-1.30); POTASSIUM 4.2 MMOL/L (3.6-5.0); TOTAL PROTEIN 6.3 GM/DL (6.4-8.2)
[2021-10-29 07:42] VITALS: BP 169/72
[2021-10-29] MEDS: meTOprolol SUCCINATE 100 MG (TOPROL XL) TAB PO SCH (07:59)
[2021-10-29] MEDS: CLOPIDOGREL 75 MG (PLAVIX) TABLET PO SCH (07:59)
[2021-10-29] MEDS: LACTOBACILLUS ACIDOPHILUS (PROBIOTIC) CAPSULE PO SCH (07:59)
[2021-10-29] MEDS: hydrALAZINE (APRESOLINE) 25 MG TAB PO SCH ×3 (07:59→20:32)
[2021-10-29] MEDS: GABAPENTIN 300 MG (NEURONTIN) CAP PO SCH ×3 (08:00→20:33)
[2021-10-29] MEDS: PANTOPRAZOLE 20 MG TABLET (PROTONIX) PO SCH (08:00)
[2021-10-29] MEDS: ASPIRIN 81 MG CHEW (CHILDREN'S ASA) PO SCH (08:00)
[2021-10-29] MEDS: GLIMEPIRIDE 4 MG (AMARYL) TAB PO SCH ×2 (08:00→18:27)
[2021-10-29] MEDS: LINEZOLID (ZYVOX) 600 MG TAB PO SCH ×2 (08:03→20:33)
--- NOTE | 2021-10-29 08:58 | Occupational Ther Daily Note ---
OT Current Status-Daily Note Subjective Pt reports low BS this am; 37. Agreeable to co-treat with PT for part of session ([id number]) secondary to multiple lines, non-compliance to weight bearing status, poor endurance and need of 2 skilled clinicians to progress indep with mobility and adls. Appearance Pt left sitting in recliner, all needs within reach. Mental Status/Objective Attachments: Drains (wound vac), IV ADL-Treatment Therapy Code Descriptions/Definitions Functional Urs[place] Measure: 0=Not Assessed/NA 4=Minimal Assistance 1=Total Assistance 5=Supervision or Setup 2=Maximal Assistance 6=Modified Urs[place] 3=Moderate Assistance 7=Complete IndependenceSCALE: Activities may be completed with or without assistive devices. 1-Trlwrapbep-qsqospa completes the activity by him/herself with no assistance fr om a helper. 5-Set-up or Clean-up Assistance-helper sets up or cleans up; patient completes activity. [place] assists only prior to or following the activity. 4-Supervision or Touching Assistance-helper provides verbal cues and/or touching/steadying and/or contact guard assistance as patient completes activity. Assistance may be provided throughout the activity or intermittently. 3-Partial/Moderate Assistance-helper does LESS THAN HALF the effort. [place] lifts, holds or supports trunk or limbs, but provides less than half the effort. 2-Substantial/Maximal Assistance-helper does MORE THAN HALF the effort. [place] lifts or holds trunk or limbs and provides more than half the effort. 3-Tjqjgpcsh-wjyqqy does ALL the effort. Patient does none of the effort to complete the activity. Or, the assistance of 2 or more helpers is required for the patient to complete the activity. If activity was not attempted, code reason: 7-Patient Refused. 9-Not Applicable-not attempted and the patient did not perform the activity before the current illness, exacerbation or injury. 10-Not Attempted due to Environmental Limitations-(lack of equipment, weather restraints, etc.). 88-Not Attempted due to Medical Conditions or Safety Concerns. Oral Hygiene (QC): 6 Upper Body Dressing (QC): 5 On/Off Footwear: 2 Toileting Hygiene (QC): 4 Toilet Transfer (QC): 4 Pt sitting in chair at OT arrival. Reports need to have BM. She is impulsive with transfers, requires cues for safety and attention/awareness to IV and wound vac line. Pt reports that she can bear weight through R heel when wearing cam boot, yet immediately after statement she stood without boot donned. Unsure at this time what pt's true weight bearing status is. Thus OT educated and encouraged patient to maintain NWB until clarification. She reports that she donned clothes independently prior to OT arrival, yet anticipate poor compliance to weight bearing status during clothing management. Max A to don Cam boot, little effort given by patient. She frequently verbalizes "I can't" without t rying first. Grooming tasks performed seated in w/c, no assist needed. Other Treatment Pt participated in functional kitchen task with emphasis on safety, walker management, endurance, functional reaching, and LE strength. CGA needed for balance safety. Pt able to reach overhead without difficulty. Cues for safety and utilizing UE support on counter or use of tumbling barrel painter when reaching for objects at low heights. During activity, group therapy counselor reports that the doctor would like patient to utilize the knee scooter and only bear weight during transfers (with cam boot donned). Assistive device traded out during activity. 2 seated rest breaks needed due to poor endurance during activity. Education on pacing and energy conservation as pt has tendency to speed through tasks. Consistent cues to lock brakes on knee scooter prior to transferring on/off. Poor attention to wound vac and IV lines, cues and assist for management of lines required. Education OT Patient Education: Correct positioning, Disease process, Energy conservation, Instructions don/doff splint/brace, Modified ADL techniques, Progress toward Goal/Update tx plan, Purpose of tx/functional activities, Reviewed precautions, Rehab process, Safety issues, Transfer techniques, Use of adapted equipment Teaching Recipient: Patient Teaching Methods: Demonstration, Discussion Response to Teaching: Verbalize Understanding, Reinforcement Needed OT Short Term Goals Short Term Goals Time Frame: Nov 08, 2021 Lower body dressin Putting on/taking off footwear: 3 OT Medical Insurance Claims Processor Goals Mcfp Goals Time Frame: Nov 22, 2021 Eating (QC): 6 Oral Hygiene (QC): 6 Toileting Hygiene (QC): 6 Shower/Bathe Self (QC): 5 Upper Body Dressing (QC): 6 Lower Body Dressing (QC): 6 On/Off Footwear (QC): 6 Additional Goals: 1-Demonstrate ADL Tasks, 2-Verbalize Understanding, 3- ImproveStrength/Key 1=Demonstrate adherence to instructed precautions during ADL tasks. 2=Patient will verbalize/demonstrate understanding of assistive devices/modific ations for ADL. 3=Patient will improve strength/tolerance for activity to enable patient to perform ADL's. OT Education/Plan Problem List/Assessment Assessment: Decreased Activ Tolerance, Decreased Safety Aware, Decreased UE Strength, Impaired Funct Balance, Impaired I ADL's, Impaired Self-Care Skills Discharge Recommendations Plan/Recommendations: Continue POC Treatment Plan/Plan of Care Treatment,Training & Education: Yes Patient would benefit from OT for education, treatment and training to promote independence in ADL's, mobility, safety and/or upper extremity function for ADL's. Plan of Care: ADL Retraining, Functional Mobility, Group Exercise/Act as Ind, UE Funct Exercise/Act Treatment Duration: Nov 22, 2021 Frequency: At least 5 of 7 days/Wk (IRF) Estimated Hrs Per Day: 1.5 hours per day Agreement: Yes Rehab Potential: Fair Time/GCodes Start Time: 07:45 Stop Time: 09:00 Total Time Billed (hr/min): 75 Billed Treatment Time 1 visit ADL x2 (30 min) FA x3 (45 min) Mikala Bolanos OT Oct 29, 2021 08:58
--- NOTE | 2021-10-29 08:59 | Physical Therapy Daily Note ---
PT Daily Note-Current Subjective Patient in restroom pre tx, agrees to PT, has no complaints of pain. Will be co-treating with OT due to poor patient mobility, strength, endurance, SOB and extreme fatigue, coordinate UE and LE during activity, safety and reduce risk of falls. Appearance Patient in recliner post tx with nurse call, phone, tray, all needs met. Mental Status Patient Orientation: Person, Place, Situation Attachments: IV wound vac Transfers SCALE: Activities may be completed with or without assistive devices. 2-Nzunwxoxnf-zaieoeo completes the activity by him/herself with no assistance from a helper. 5-Set-up or Clean-up Assistance-helper sets up or cleans up; patient completes activity. [place] assists only prior to or following the activity. 4-Supervision or Touching Assistance-helper provides verbal cues and/or touching/steadying and/or contact guard assistance as patient completes activity. Assistance may be provided throughout the activity or intermittently. 3-Partial/Moderate Assistance-helper does LESS THAN HALF the effort. [place] lifts, holds or supports trunk or limbs, but provides less than half the effort. 2-Substantial/Maximal Assistance-helper does MORE THAN HALF the effort. [place] lifts or holds trunk or limbs and provides more than half the effort. 1-Lgugqnojj-kjzsma does ALL the effort. Patient does none of the effort to complete the activity. Or, the assistance of 2 or more helpers is required for the patient to complete the activity. If activity was not attempted, code reason: 7-Patient Refused. 9-Not Applicable-not attempted and the patient did not perform the activity b efore the current illness, exacerbation or injury. 10-Not Attempted due to Environmental Limitations-(lack of equipment, weather restraints, etc.). 88-Not Attempted due to Medical Conditions or Safety Concerns. Sit to Stand (QC): 4 Chair/Rxu-kg-Levza Xfer(QC): 4 used cam boot on right foot for transfers, when done using the restroom patient brushes teeth and washes hands Weight Bearing Right Lower Extremity: Right Partial Weight Bearing Left Lower Extremity: Left Full Weight Bearing Off load on right with: knee scooter, CAM boot or surgical shoe (see above) Patient's weight bearing status is unclear. She will be treated as NWB on the right foot until this is cleared up. Patient states that at home her doctor told her to be NWB on the right foot except for short distances like going to the restroom. Gait Training Practice using knee scooter which is difficult for her when she has a wound vac and an IV, she needs assist of 2 people to carry these but no actual assist to use the knee scooter, she can only go short distances before getting SOB and needing to sit down, patient goes 100'x4 and does an activity finding objects in the kitchenette Treatments PT performs transfers, knee scooter, positioning and safety during ADL's and kitchen activity, OT performed ADL's, kitchen activity, UE positioning and safety during activity Assessment Current Status: Fair Progress patient doesn't really try to keep weight off of right foot during transfers, doesn't keep track of her IV or wound vac lines PT Short Term Goals Short Term Goals Time Frame: Nov 04, 2021 Roll Left & Right: 6 Sit to lyin Lying to sitting on side of be: 6 Sit to stand: 4 (SBA) Chair/zyu-cy-egpql transfer: 4 (SBA) Walk 10 feet: 4 (SBA) Walk 50 feet with two turns: 4 (SBA) PT Fpc Goals Slot Technician Goals PT Fpc Goals Time Frame: Nov 18, 2021 Roll Left & Right (QC): 6 Sit to Lying (QC): 6 Lying-Sitting on Side/Bed(QC): 6 Sit to Stand (QC): 5 Chair/Mlb-fq-Xtxhm Xfer(QC): 5 Toilet Transfer (QC): 5 Car Transfer (QC): 5 Does the Patient Walk: Yes Walk 10 feet (QC): 4 Walk 50ft with 2 Turns (QC): 4 Walk 150 ft (QC): 4 Walking 10ft on Uneven Surface: 4 1 Step (curb) (QC): 4 4 Steps (QC): 4 12 Steps (QC): 88 Picking up an Object (QC): 4 Wheel 50 feet with 2 turns (QC: 6 Wheel 150 feet: 6 PT Plan Problem List Problem List: Activity Tolerance, Functional Strength, Safety, Balance, Gait, Transfer, Bed Mobility, ROM Treatment/Plan Treatment Plan: Continue Plan of Care Treatment Plan: Bed Mobility, Education, Functional Activity Key, Functional Strength, Group Therapy, Gait, Safety, Therapeutic Exercise, Transfers Treatment Duration: Nov 18, 2021 Frequency: At least 5 of 7 days/Wk (IRF) Estimated Hrs Per Day: 1.5 hours per day Patient and/or Family Agrees t: Yes Safety Risks/Education Patient Education: Gait Training, Transfer Techniques, Reviewed Precautions, Correct Positioning, Safety Issues Teaching Recipient: Patient Teaching Methods: Demonstration, Discussion Response to Teaching: Reinforcement Needed Time/GCodes Time In: 0800 Time Out: 0900 Total Billed Treatment Time: 60 Total Billed Treatment 1 visit FA FAVIOLA DORAN PT Oct 29, 2021 08:59
[2021-10-29] MEDS: SENNA W/DOCUSATE (SENOKOT S) TABLET PO SCH ×2 (09:00→20:02)
[2021-10-29] MEDS: polyethylene glycoL POWDER 17 GM (MIRALAX) PACK PO SCH ×2 (09:00→20:02)
[2021-10-29] MEDS ORDERED: NON-FORMULARY MEDICATION 1 EA EA (Metoprolol Succinate 200 MG) PO SCH (09:00)
[2021-10-29] MEDS ORDERED: LACTOBACILLUS ACIDOPHILUS PO SCH (09:00)
[2021-10-29] MEDS: ONDANSETRON 4 MG (ZOFRAN) ORAL DISSOLVE TAB PO PRN (09:50)
--- NOTE | 2021-10-29 11:21 | Physical Therapy Daily Note ---
PT Daily Note-Current Subjective Patient in bed pre tx, agrees reluctantly to PT, she is tired, has no complaints of pain. Appearance Patient sitting EOB post tx with nurse call, phone, tray, all needs met. Mental Status Patient Orientation: Person, Place, Situation wound vac Transfers SCALE: Activities may be completed with or without assistive devices. 8-Jyfkhjxxkc-ekumdtb completes the activity by him/herself with no assistance from a helper. 5-Set-up or Clean-up Assistance-helper sets up or cleans up; patient completes activity. [place] assists only prior to or following the activity. 4-Supervision or Touching Assistance-helper provides verbal cues and/or touching/steadying and/or contact guard assistance as patient completes activity. Assistance may be provided throughout the activity or intermittently. 3-Partial/Moderate Assistance-helper does LESS THAN HALF the effort. [place] lifts, holds or supports trunk or limbs, but provides less than half the effort. 2-Substantial/Maximal Assistance-helper does MORE THAN HALF the effort. [place] lifts or holds trunk or limbs and provides more than half the effort. 8-Iryblgobf-aiamqk does ALL the effort. Patient does none of the effort to complete the activity. Or, the assistance of 2 or more helpers is required for the patient to complete the activity. If activity was not attempted, code reason: 7-Patient Refused. 9-Not Applicable-not attempted and the patient did not perform the activity before the current illness, exacerbation or injury. 10-Not Attempted due to Environmental Limitations-(lack of equipment, weather restraints, etc.). 88-Not Attempted due to Medical Conditions or Safety Concerns. Roll Left & Right (QC): 6 Lying to Sitting/Side of Bed(Q: 6 Sit to Stand (QC): 4 Chair/Dtz-nd-Pmbhw Xfer(QC): 4 Patient wore her surgical shoe for transfers, cued to only use her heel but she is non-compliant with this Weight Bearing Right Lower Extremity: Right Non Weight Bearing Left Lower Extremity: Left Full Weight Bearing May use right heel for balance and transfers only Patient's weight bearing status is unclear. She will be treated as NWB on the right foot until this is cleared up. Patient states that at home her doctor told her to be NWB on the right foot except for short distances like going to the restroom. 10/29/21 patient can use the surgical shoe but preferably the cam boot for transfers while having the heel on the ground for transfers but no ambulation, she can use the knee scooter to get around. Gait Training Distance: 150', 120' Walk 10 feet (QC): 4 Walk 50 ft with 2 Turns(QC): 4 Walk 150 ft (QC): 4 Gait Persons Needed: 1 knee scooter, patient has trouble turning sometimes and she will put both feet down and lift the scooter to turn it, she is cued not to do this Exercises Seated Therapy Exercises: Ankle pumps, Long arc quads, Hip flexion, Hip abd/add Seated Reps: 20 Treatments bed mobility and transfers, ambulation (knee scooter), LE strengthening Assessment Current Status: Fair Progress Patient still getting SOB, poor endurance PT Short Term Goals Short Term Goals Time Frame: Nov 04, 2021 Roll Left & Right: 6 Sit to lyin Lying to sitting on side of be: 6 Sit to stand: 4 (SBA) Chair/hxw-ua-hxwgk transfer: 4 (SBA) Walk 10 feet: 4 (SBA) Walk 50 feet with two turns: 4 (SBA) PT Senior Care Goals Senior Care Goals PT Senior Care Goals Time Frame: Nov 18, 2021 Roll Left & Right (QC): 6 Sit to Lying (QC): 6 Lying-Sitting on Side/Bed(QC): 6 Sit to Stand (QC): 5 Chair/Itq-tv-Ojweb Xfer(QC): 5 Toilet Transfer (QC): 5 Car Transfer (QC): 5 Does the Patient Walk: Yes Walk 10 feet (QC): 4 Walk 50ft with 2 Turns (QC): 4 Walk 150 ft (QC): 4 Walking 10ft on Uneven Surface: 4 1 Step (curb) (QC): 4 4 Steps (QC): 4 12 Steps (QC): 88 Picking up an Object (QC): 4 Wheel 50 feet with 2 turns (QC: 6 Wheel 150 feet: 6 PT Plan Problem List Problem List: Activity Tolerance, Functional Strength, Safety, Balance, Gait, Transfer, Bed Mobility, ROM Treatment/Plan Treatment Plan: Continue Plan of Care Treatment Plan: Bed Mobility, Education, Functional Activity Key, Functional Strength, Group Therapy, Gait, Safety, Therapeutic Exercise, Transfers Treatment Duration: Nov 18, 2021 Frequency: At least 5 of 7 days/Wk (IRF) Estimated Hrs Per Day: 1.5 hours per day Patient and/or Family Agrees t: Yes Safety Risks/Education Patient Education: Gait Training, Transfer Techniques, Reviewed Precautions, Correct Positioning, Safety Issues Teaching Recipient: Patient Teaching Methods: Demonstration, Discussion Response to Teaching: Reinforcement Needed Time/GCodes Time In: 1055 Time Out: 1125 Total Billed Treatment Time: 30 Total Billed Treatment 1 visit EX 10' FA 20' FAVIOLA MEZA PT Oct 29, 2021 11:21
[2021-10-29] MEDS: DOCUSATE SODIUM 100 MG (COLACE) CAP PO SCH (11:53)
[2021-10-29] MEDS ORDERED: ZINC SULFATE 50 MG PO SCH (12:00)
[2021-10-29] MEDS ORDERED: NON-FORMULARY MEDICATION 1 EA EA (Cholecalciferol (Vitamin D3) (Vitamin D3) 50 MCG) PO SCH (12:00)
[2021-10-29] MEDS: ZINC SULFATE 220 MG CAPSULE PO SCH (14:40)
[2021-10-29] MEDS: ASCORBIC ACID (VIT C) 500 MG TABLET PO SCH (14:40)
[2021-10-29] MEDS: VITAMIN D3 25 MCG (1,000 UNITS) TABLET PO SCH (14:41)
[2021-10-29] MEDS: SUCRALFATE 1 GM (CARAFATE) TAB PO SCH ×2 (17:01→20:33)
--- NOTE | 2021-10-29 19:21 | Consultation-Cardiology ---
HPI-Cardiology Cardiology Consultation: Date of Consultation 10/29/2021 Date of Admission 10/28/2021 Attending Physician Lin Farias DO Admitting Physician [place]/Replaced By [facility] Consulting Physician GELY FOUNTAIN JR, MD HPI: Time Seen by a Provider: 19:16 Chief Complaint: Reason for consultation: Dyspnea on exertion. I had the pleasure of seeing Rhoda on the inpatient rehabilitation unit at [facility] in [place], [place] this evening. She has an extensive past cardiac history and normally follows with one of my partners. Approximately 1 month ago she had an outpatient right transmetatarsal amputation. She went home the same day. However, ever since that time, she has had progressive dyspnea on exertion. She had actually been in the hospital later in September and underwent a cardiac catheterization at that time that did not show any targets for revascularization. She presented to the emergency room 2 days ago with ongoing dyspnea. She was found to have severe anemia and received 2 blood transfusions as well as an iron infusion. Her breathing has started to improve. She was then transferred to our inpatient rehabilitation facility. She has been doing physical therapy but still feels fairly short of breath with exertion. She denies chest discomfort, paroxysmal nocturnal dyspnea, orthopnea, or palpitations. She has some occasional lightheaded spells but denies syncope. She has had right lower extremity edema ever since her right foot surgery. Because of the ongoing dyspnea, a cardiology consultation was requested. Certain portions of this document may have been dictated utilizing voice recognition technology. Inherent to this technology, typographical and grammatical errors may exist. As much as I am diligent to identify and correct these mistakes, some errors may remain in the document. Review of Systems-Cardiology Review of Systems Other comments Review of 10 organ systems is as per the history of present illness, otherwise negative. All Other Systems Reviewed Negative Unless Noted: Yes ZWE-Atupld-Wslwrs Hx Patient Social History Marrital Status: Employed/Student: retired Smoking Status: Former Smoker 2nd Hand Smoke Exposure: Yes Have you traveled recently?: No Alcohol Use?: No Pt feels they are or have been: No Immunizations Up To Date Tetanus Booster (TDap): Unknown Date of Pneumonia Vaccine: Oct 15, 2018 Date of Influenza Vaccine: Jun 14, 2021 Past Medical History PMH As described under Assessment. Family Medical History Family Medical History: She reports her mother had CAD, CVA. She reports her father had HTN. She reports 2 brothers who havd CAD. Family History: Cardiovascular disease 19 MOTHER, G8 BROTHER G8 BROTHER Completed stroke 19 MOTHER, Diabetes mellitus 19 FATHER, 19 MOTHER, G8 BROTHER G8 SISTER FH: brain tumor FH: breast cancer 19 MOTHER, FH: lung cancer FHx: peripheral neuropathy Hypertension 19 FATHER, Lung c 19 FATHER, Myocardial infarction 19 MOTHER, Neuro Allergies and Home Medications Allergies Coded Allergies: No Known Drug Allergies (Unverified , 10/28/21) Patient Home Medication List Home Medication List Reviewed: Yes Ascorbic Acid (Vitamin C) 500 Mg Tablet, 500 MG PO 1200, (Reported) Entered as Reported by: DAPHNEY SHIRLEY on 10/01/21 1150 Last Action: Continued Aspirin (Aspirin) 81 Mg Tab.chew, 81 MG PO DAILY, (Reported) Entered as Reported by: AMY TODD on 04/27/18 1329 Last Action: Continued Cholecalciferol (Vitamin D3) (Vitamin D3) 50 Mcg Capsule, 50 MCG PO 1200, (Reported) Entered as Reported by: DAPHNEY SHIRLEY on 10/01/21 1150 Last Action: Converted Clopidogrel Bisulfate (Clopidogrel) 75 Mg Tablet, 75 MG PO DAILY, (Reported) Entered as Reported by: AMY TODD on 08/16/19 1445 Last Action: Continued Docusate Sodium (Stool Softener) 100 Mg Capsule, 200 MG PO DAILY, (Reported) Entered as Reported by: DAPHNEY SHIRLEY on 09/06/20 1002 Last Action: Continued Gabapentin (Neurontin) 300 Mg Capsule, 900 MG PO TID, (Reported) Entered as Reported by: ANIYA ISABEL on 04/02/20 1448 Last Action: Continued Glimepiride (Glimepiride) 4 Mg Tablet, 4 MG PO BID, (Reported) Entered as Reported by: JACQUES SHANNON on 12/05/17 0950 Last Action: Continued Hydralazine HCl (Hydralazine HCl) 50 Mg Tablet, 50 MG PO TID, (Reported) Entered as Reported by: ANASTASIIA SMITH on 02/04/18 1521 Last Action: Converted Ibuprofen (Ibuprofen) 200 Mg Tablet, 600 MG PO Q6H PRN for PAIN-MILD (1-4), (Reported) Entered as Reported by: VIV ESTRELLA on 10/28/21 0916 Last Action: Held Insulin Aspart (Novolog Flexpen) 300 Units/3 Ml Solution, 13 UNITS SQ TIDWM, (Reported) Entered as Reported by: DAPHNEY SHIRLEY on 10/01/21 1154 Last Action: Converted Insulin Detemir (Levemir Flextouch) 100 Unit/1 Ml Insuln.pen, 20 UNIT SQ HS, (Reported) Entered as Reported by: DAPHNEY SHIRLEY on 10/01/21 1203 Last Action: Converted Lactobacillus Acidophilus (Probiotic) 1 Each Capsule, 2 EACH PO DAILY, (Reported) Entered as Reported by: VALERIA FAJARDO on 10/03/21 0943 Last Action: Converted Linezolid (Linezolid) 600 Mg Tablet, 600 MG PO BID, (Reported) Entered as Reported by: DAPHNEY SHIRLEY on 10/01/21 1150 Last Action: Continued Liraglutide (Victoza 3-Rigo) 0.6 Mg/0.1 Ml Pen.injctr, 1.8 MG SQ HS, (Reported) Entered as Reported by: DAPHNEY SHIRLEY on 11/27/20 0958 Last Action: Converted Metoprolol Succinate (Metoprolol Succinate) 200 Mg Tab.er.24h, 200 MG PO DAILY, (Reported) Entered as Reported by: ANASTASIIA SMITH on 02/04/18 1521 Last Action: Converted Pantoprazole Sodium (Pantoprazole Sodium) 20 Mg Tablet.dr, 20 MG PO DAILY, (Reported) Entered as Reported by: AMY TODD on 08/16/19 1445 Last Action: Continued Zinc Sulfate (Zinc) 50 Mg Tablet, 50 MG PO 1200, (Reported) Entered as Reported by: DAPHNEY SHIRLEY on 10/01/21 1150 Last Action: Converted Discontinued Medications Hydrocodone/Acetaminophen (Hydrocodone-Acetamin 5-325 mg) 1 Each Tablet, 1 TAB PO Q4H PRN for PAIN-MODERATE (5-7) Discontinued Reason: No Longer Taking Prescribed by: MARIBEL KIRK on 10/04/21 1404 Exam Vital Signs Vital Signs Date Time Temp Pulse Resp B/P (MAP) Pulse Ox O2 Delivery O2 Flow Rate FiO2 10/29/21 09:59 97 Room Air 10/29/21 07:42 36.2 68 12 169/72 (104) Physical Exam General: Alert. No acute distress. Well nourished and appears stated age. Eye: Extraocular movements are intact. Conjunctivae are clear. There are no xanthelasma. HENT: Normocephalic. Atraumatic. Carotid pulsations 2/2 without bruits. Neck: Jugular venous pressure does not appear elevated. No thyromegaly appreciated. Respiratory: Lungs are clear to auscultation. Respirations are non-labored. Breath sounds are equal. Symmetrical chest wall expansion. Cardiovascular: Normal rate. Regular rhythm. 2/6 systolic ejection murmur. No gallop. Point of maximal impulse is not appear displaced. 1+ right lower extremity pretibial edema. Gastrointestinal: Soft. Normal bowel sounds. Skin: Skin turgor is normal. There is no pallor. Musculoskeletal: No kyphosis or scoliosis appreciated. Neurologic: Alert and oriented to person, place, time. Cranial nerves 3-12 appear grossly intact. The patient has good motor tone strength in the upper and lower extremities bilaterally. Psychiatric: Cooperative. Appropriate mood & affect. Labs Laboratory Tests Test 10/28/21 21:41 10/29/21 06:00 10/29/21 06:34 10/29/21 06:42 Range/Units Glucometer 90 37 *L 79 70-110 MG/DL White Blood Count 5.9 4.3-11.0 10^3/uL Red Blood Count 2.53 L 3.80-5.11 10^6/uL Hemoglobin 7.5 L 11.5-16.0 g/dL Hematocrit 24 L 35-52 % Mean Corpuscular Volume 94 80-99 fL Mean Corpuscular Hemoglobin 30 25-34 pg Mean Corpuscular Hemoglobin Concent 32 32-36 g/dL Red Cell Distribution Width 15.1 H 10.0-14.5 % Platelet Count 71 L 130-400 10^3/uL Mean Platelet Volume 10.0 9.0-12.2 fL Immature Granulocyte % (Auto) 0 % Neutrophils (%) (Auto) 63 42-75 % Lymphocytes (%) (Auto) 26 12-44 % Monocytes (%) (Auto) 7 0-12 % Eosinophils (%) (Auto) 5 0-10 % Basophils (%) (Auto) 0 0-10 % Neutrophils # (Auto) 3.7 1.8-7.8 10^3/uL Lymphocytes # (Auto) 1.5 1.0-4.0 10^3/uL Monocytes # (Auto) 0.4 0.0-1.0 10^3/uL Eosinophils # (Auto) 0.3 0.0-0.3 10^3/uL Basophils # (Auto) 0.0 0.0-0.1 10^3/uL Immature Granulocyte # (Auto) 0.0 0.0-0.1 10^3/uL Percent Immature Platelet Fraction 3.7 0.0-7.6 % Sodium Level 138 135-145 MMOL/L Potassium Level 4.2 3.6-5.0 MMOL/L Chloride Level 110 H 98-107 MMOL/L Carbon Dioxide Level 16 L 21-32 MMOL/L Anion Gap 12 5-14 MMOL/L Blood Urea Nitrogen 37 H 7-18 MG/DL Creatinine 1.10 0.60-1.30 MG/DL Estimat Glomerular Filtration Rate 56 BUN/Creatinine Ratio 34 Glucose Level 77 70-105 MG/DL Calcium Level 8.7 8.5-10.1 MG/DL Corrected Calcium 9.0 8.5-10.1 MG/DL Total Bilirubin 0.4 0.1-1.0 MG/DL Aspartate Amino Transf (AST/SGOT) 17 5-34 U/L Alanine Aminotransferase (ALT/SGPT) 27 0-55 U/L Alkaline Phosphatase 68 40-136 U/L Total Protein 6.3 L 6.4-8.2 GM/DL Albumin 3.6 3.2-4.5 GM/DL Test 10/29/21 09:10 10/29/21 11:25 10/29/21 11:26 10/29/21 16:52 Range/Units Lactic Acid Level 6.79 *H 6.52 *H 0.50-2.00 MMOL/L Glucometer 127 H 70 70-110 MG/DL ECG Impression ECG Comment Electrocardiogram from the emergency room on 10/27 showed sinus rhythm with poor R wave progression and nonspecific T wave changes. Diagnosis/Problems Diagnosis/Problems (1) Dyspnea on exertion Assessment & Plan: Exact etiology unclear. Her chest x-ray did not show any evidence of pulmonary edema at the time of admission. I suspect the majority of her dyspnea may be related to the profound anemia. Even though she has had 3 blood transfusions, her hemoglobin level is still only 7. I suspect this is the primary cause of her dyspnea. (2) Aortic valve sclerosis Assessment & Plan: I suspect her heart murmur is due to aortic valve sclerosis. I will obtain a follow-up echocardiogram in the morning just to exclude any structural heart disease that could be causing shortness of breath. (3) Coronary artery disease without angina pectoris Assessment & Plan: She had a recent cardiac catheterization in September that did not show any targets for revascularization. I recommend she continue on the present combination of cardiac medications. (4) Peripheral arterial disease Assessment & Plan: She also has peripheral arterial disease and had a recent transmetatarsal amputation of the right foot. I recommend she continue on aspirin and clopidogrel. (5) Primary hypertension Assessment & Plan: Her hydralazine and metoprolol have been continued. She is having intermittently elevated blood pressures. If this persists, we may need to make some adjustment to her antihypertensive medication. I am not entirely sure why she is not on EILEEN inhibitor or ARB in light of her underlying diabetes mellitus. We may want to consider adding 1 of these agents if her blood pressure remains elevated. (6) Mixed hyperlipidemia Assessment & Plan: She does not appear to have been on a statin medication at home. I will have a lipid panel added to blood work from this morning and then decide whether or not she might benefit from statin medication. (7) Stage 3 chronic kidney disease Assessment & Plan: If we do decide to start ARB or EILEEN inhibitor, we will need to watch her renal function. Problem Qualifiers (1) Stage 3 chronic kidney disease: Chronic kidney disease stage 3 subtype: stage 3a (GFR 45-59) Qualified Codes: N18.31 - Chronic kidney disease, stage 3a GELY FOUNTAIN JR, MD Oct 29, 2021 19:21
[2021-10-29 19:50] LABS: CHOLESTEROL 79 MG/DL (< 200); HDL CHOLESTEROL 40 MG/DL (40-60); TRIGLYCERIDES 64 MG/DL (<150); VLDL CHOLESTEROL 13 MG/DL (5-40)
[2021-10-29 20:00] VITALS: BP 184/79
[2021-10-30] MEDS: inSUlin ASPART (NovoLOG) 1 UNIT/0.01 ML (CHARGE PER UNIT) SC SCH ×4 (05:57→21:50)
[2021-10-30] MEDS: SUCRALFATE 1 GM (CARAFATE) TAB PO SCH ×4 (06:41→21:17)
--- NOTE | 2021-10-30 06:58 | PM&R Progress Note ---
Subjective HPI/CC On Admission Date Seen by Provider: Oct 30, 2021 Time Seen by Provider: 09:00 Subjective/Events-last exam 10/30/2021: Pt is doing really well Lactic acid from Zyvox will ultimately resolve Blood sugars are very low holding Glimepiride and insulin IV iron initiated Midline will be placed Discharge on Thursday since she insists Very complex issues requiring drastic changes in medications and lab work-up and medical decision making 10/29/2021: Pt is doing a little better Still very SOB Hemoglobin remains low at 7.6 Hematology consult today Hep locking IV fluid Hypoglycemia noted, which she does get low at home Murmur is noted but Dr. Lemus manages that so I will have cardiology see her Lactic acid still remains and I did medication evaluation and found Zyvox to likely be the cause so we will hold that and notify Dr. Hodges who has placed her on that Labile sugars are very concerning We will hold oral hypoglycemic agent to see if we can decrease hypoglycemic episodes and will hold all insulin for now and only do sliding scale Very complex issues Review of Systems General: Fatigue, Malaise Musculoskeletal: leg pain, foot pain Focused Exam Lactate Level 10/29/21 09:10: Lactic Acid Level 6.79*H 10/29/21 11:26: Lactic Acid Level 6.52*H Objective Exam Vital Signs Vital Signs Date Time Temp Pulse Resp B/P (MAP) Pulse Ox O2 Delivery O2 Flow Rate FiO2 10/30/21 20:30 Room Air 10/30/21 19:16 36.0 71 20 159/68 (98) 96 Capillary Refill : General Appearance: No Apparent Distress, WD/WN, Chronically ill, Obese HEENT: PERRL/EOMI, Normal ENT Inspection, Pharynx Normal Neck: Full Range of Motion, Normal Inspection, Non Tender, Supple, Carotid Bruit Respiratory: Chest Non Tender, Lungs Clear, Normal Breath Sounds, No Accessory Muscle Use, No Respiratory Distress Cardiovascular: Regular Rate, Rhythm, No Edema, No Gallop, No JVD, Normal Peripheral Pulses, Systolic Murmur Gastrointestinal: Normal Bowel Sounds, No Organomegaly, No Pulsatile Mass, Non Tender, Soft Back: Normal Inspection, No CVA Tenderness, No Vertebral Tenderness Extremity: Normal Capillary Refill, Normal Inspection, Normal Range of Motion, Non Tender, No Calf Tenderness, No Pedal Edema Neurologic/Psychiatric: Alert, Oriented x3, No Motor/Sensory Deficits, engineer conductor II- XII Norm as Tested, Abnormal Gait, Depressed Affect, Motor Weakness (Generalized) Skin: Normal Color, Warm/Dry, Other (Wound VAC in place right metatarsal amputation site) Lymphatic: No Adenopathy Results/Procedures Lab Patient resulted labs reviewed. FIM Transfers Therapy Code Descriptions/Definitions Functional Harper Measure: 0=Not Assessed/NA 4=Minimal Assistance 1=Total Assistance 5=Supervision or Setup 2=Maximal Assistance 6=Modified Harper 3=Moderate Assistance 7=Complete IndependenceSCALE: Activities may be completed with or without assistive devices. 6-Kncrcpyhig-wasojbu completes the activity by him/herself with no assistance from a helper. 5-Set-up or Clean-up Assistance-helper sets up or cleans up; patient completes activity. [place] assists only prior to or following the activity. 4-Supervision or Touching Assistance-helper provides verbal cues and/or touching/steadying and/or contact guard assistance as patient completes activity. Assistance may be provided throughout the activity or intermittently. 3-Partial/Moderate Assistance-helper does LESS THAN HALF the effort. [place] lifts, holds or supports trunk or limbs, but provides less than half the effort. 2-Substantial/Maximal Assistance-helper does MORE THAN HALF the effort. [place] lifts or holds trunk or limbs and provides more than half the effort. 4-Inzjcwply-gslgqt does ALL the effort. Patient does none of the effort to c omplete the activity. Or, the assistance of 2 or more helpers is required for the patient to complete the activity. If activity was not attempted, code reason: 7-Patient Refused. 9-Not Applicable-not attempted and the patient did not perform the activity before the current illness, exacerbation or injury. 10-Not Attempted due to Environmental Limitations-(lack of equipment, weather restraints, etc.). 88-Not Attempted due to Medical Conditions or Safety Concerns. Roll Left to Right (QC): 6 Sit to Lying (QC): 6 Sit to Stand (QC): 4 Chair/Mzi-tu-Nxunf Xfer(QC): 4 Car Transfer (QC): 4 Gait Training Does the Patient Walk?: Yes Distance: 150', 120' Walk 10 feet (QC): 4 Walk 50 ft with 2 Turns(QC): 4 Walk 150 ft (QC): 4 Walking 10ft/uneven surface-QC: 4 Gait Persons Needed: 1 Gait Assistive Device: FWW Wheelchair Training Does the Pt Use a Wheelchair?: Yes Distance: 100'x2 Wheel 50 ft with 2 turns (QC): 4 Wheel 150 ft (QC): 88 Type of Wheelchair: Manual Stair Training #of Steps: 1 1 Step (curb) (QC): 4 4 Steps (QC): 88 12 Steps (QC): 88 Balance Picking up an Object (QC): 4 ADL-Treatment Eating (QC): 6 (Per pt report. ) Oral Hygiene (QC): 6 Shower/Bathe Self (QC): 4 (SBA) Upper Body Dressing (QC): 5 Lower Body Dressing (QC): 3 (Min A with threading RLE) On/Off Footwear (QC): 2 Toileting Hygiene (QC): 4 Toilet Transfer (QC): 4 Assessment/Plan Assessment and Plan Assess & Plan/Chief Complaint Assessment: Debility Severe anemia status post transfusion Severe iron deficiency anemia Diabetes mellitus brittle control Status post right metatarsal amputation [address] Sarmiento Hypertension Hyperlipidemia Fibromyalgia Depression Lactic acidosis without evidence of sepsis likely due to Zyvox holding today 10/29/2021 after tonight's dose Hypoglycemic episodes holding oral glycemic agent and insulin insulin doing sliding scale starting 10/29/2021 nighttime Plan: Supportive care Transfuse as necessary Consult hematology Iron infusions 10/29/2021: Iron infusions Hold oral hypoglycemic agent and insulin due to hypoglycemic episodes Cardiology and hematology initiated Hold Zyvox due to lactic acidosis 10/30/2021: Continue to hold insulin and glimepiride Hold Plavix and aspirin if okay with Dr. Lemus per hematology recommendations Completed Zyvox Discharge Thursday she insisted although she would benefit from 1 more week in my opinion (1) Dyspnea on exertion Assessment & Plan: Exact etiology unclear. Her chest x-ray did not show any evidence of pulmonary edema at the time of admission. I suspect the majority of her dyspnea may be related to the profound anemia. Even though she has had 3 bl ood transfusions, her hemoglobin level is still only 7. I suspect this is the primary cause of her dyspnea. (2) Aortic valve sclerosis Assessment & Plan: I suspect her heart murmur is due to aortic valve sclerosis. I will obtain a follow-up echocardiogram in the morning just to exclude any structural heart disease that could be causing shortness of breath. (3) Coronary artery disease without angina pectoris Assessment & Plan: She had a recent cardiac catheterization in September that did not show any targets for revascularization. I recommend she continue on the present combination of cardiac medications. (4) Peripheral arterial disease Assessment & Plan: She also has peripheral arterial disease and had a recent transmetatarsal amputation of the right foot. I recommend she continue on aspirin and clopidogrel. (5) Primary hypertension Assessment & Plan: Her hydralazine and metoprolol have been continued. She is having intermittently elevated blood pressures. If this persists, we may need to make some adjustment to her antihypertensive medication. I am not entirely sure why she is not on EILEEN inhibitor or ARB in light of her underlying diabetes mellitus. We may want to consider adding 1 of these agents if her blood pressure remains elevated. (6) Mixed hyperlipidemia Assessment & Plan: She does not appear to have been on a statin medication at home. I will have a lipid panel added to blood work from this morning and then decide whether or not she might benefit from statin medication. (7) Stage 3 chronic kidney disease Assessment & Plan: If we do decide to start ARB or EILEEN inhibitor, we will need to watch her renal function. Qualifiers: Chronic kidney disease stage 3 subtype: stage 3a (GFR 45-59) Qualified Codes: N18.31 - Chronic kidney disease, stage 3a CARMEN NORRIS DO Oct 30, 2021 06:58
[2021-10-30 07:18] VITALS: BP 173/74
[2021-10-30] MEDS: CLOPIDOGREL 75 MG (PLAVIX) TABLET PO SCH (07:45)
[2021-10-30] MEDS: hydrALAZINE (APRESOLINE) 25 MG TAB PO SCH ×3 (07:45→21:17)
[2021-10-30] MEDS: PANTOPRAZOLE 20 MG TABLET (PROTONIX) PO SCH (07:45)
[2021-10-30] MEDS: ASPIRIN 81 MG CHEW (CHILDREN'S ASA) PO SCH (07:45)
[2021-10-30] MEDS: LACTOBACILLUS ACIDOPHILUS (PROBIOTIC) CAPSULE PO SCH (07:45)
[2021-10-30] MEDS: meTOprolol SUCCINATE 100 MG (TOPROL XL) TAB PO SCH (07:45)
[2021-10-30] MEDS: GABAPENTIN 300 MG (NEURONTIN) CAP PO SCH ×3 (07:45→21:17)
--- NOTE | 2021-10-30 08:46 | ST Cognitive Linguistic Eval ---
Speech Evaluation-General Medical Diagnosis anemia/debility Onset Date: Nov 22, 2021 Therapy Diagnosis Therapy Diagnosis: Cognitive Lingusitic Skills WNL Precautions Precautions/Isolations: Standard Precautions Referral Referring Physician: Dr. Lin Farias Reason for Referral: Evaluation/Treatment Medical History Pertinent Medical History: CAD, DM, HTN, Neuropathy, PVD Current History The patient is a 66 year-old female with a past medical history of CAD, amputation, coronary stent, neuropathy, fibromyalgia, DM, R toes amputation, and COVID 19, who underwent amputation of all toes on the right foot several months ago. Additionally, in September 2021, the patient underwent a partial resection of 1st metatarsal due to osteomyelitis. Reviewed History: Yes Social History Current Living Status: Spouse Speech PLF-Current Status Prior Level of Function The patient stated she did not experience difficulties with speech, language or cognition prior to admission. The patient denied challenges or concerns to these areas at this time. Subjective The patient was seated upright in her recliner, awake and alert upon entrance. The patient greeted the clinician appropriately and was agreeable to participation in the cognitive linguistic evaluation. Language Eval: Auditory Comprehends Simple Yes/No Ques: Functional Indent/Objects Multiple Rollins: Functional Ident/Pics in Multiple Rollins: Functional Follows 1-Step Commands: Functional Follows Complex Directions: Functional Follows General Conversations: Functional Language Eval: Verbal Language Completes Spontaneous Greeting: Functional Produces Auto, Serial Info: Functional Imitates Simple Words/Phrases: Functional Word Finding: Functional Requests Basic Needs: Functional States Basic Personal Info: Functional Expresses Complex Ideas: Functional Language Evaluation: Reading Follows Simple Written Direct: Functional Language Evaluation: Writing Writes to Simple Dictation: Functional Cognitive Patient Orientation The patient was independently oriented to self, location, month, day of the week, date, and year. Objective Cognitive Domain Attention: WNL Memory: WNL Problem Solving: Functional Executive Functions: WNL Composite Severity Rating: WNL Clock Drawing Severity Rating: WNL Objective Formal/Standardized Tests [facility] Mental Status ([facility]) Results The patient demonstrated a score of +29/30 on the SLUMS correlating to "normal" cognitive linguistic function." Oral Motor/Speech Production The patient does not display dysarthria or apraxia of speech. The patient remains 100% intelligible in known and unknown contexts. Impression The patient demonstrated a result of "normal" neurocognitive function on the SLUMS. The patient does not display difficulty in any area of cognition or language at this time. Speech Patient Assess Expression of Ideas/Wants: Expression (4) Understanding Verbal Content: Understands (4) Brief Interview-Mental Status: Yes Repetition of Three Words: Three (3) Temporal Orientation: Year: Correct (3) Temporal Orientation: Month: Accurate within 5 days(2) Temporal Orientation: Day: Correct (1) Recall : Wear to say "Sock": Yes, no cue required (2) Recall : Color: Yes, no cue required (2) Recall : Bed: Yes, no cue required (2) Memory/Recall Ability: Current season, Staff names and faces, That he or she is in a hsp/hsp unit Speech-Plan Treatment Plan Speech Therapy Treatment Plan: Discontinue ST Treatment Duration: Oct 29, 2021 Frequency: 1 time per week Estimated Hrs Per Day: .5 hour per day Rehab Potential: Fair Safety Risks/Education Teaching Recipient: Patient Teaching Methods: Discussion Response to Teaching: Verbalize Understanding Education Topics Provided: Plan of Care, Results of SLUMS Time Speech Therapy Time In: 09:30 Speech Therapy Time Out: 10:00 Total Billed Time: 30 Billed Treatment Time 1, GEETHA ZIMMERMAN LATE DOCUMENTATION. The patient was evaluated on 10/29/2021. ANIYA ESCOBAR Oct 30, 2021 08:46
--- NOTE | 2021-10-30 09:13 | Occupational Ther Daily Note ---
OT Current Status-Daily Note Subjective Denies pain, reports she wants to be home by Thursday. Appearance Pt left sitting in recliner, all needs within reach. Mental Status/Objective Patient Orientation: Person, Place, Situation Attachments: Drains (Wound vac), IV ADL-Treatment Therapy Code Descriptions/Definitions Functional [place] Measure: 0=Not Assessed/NA 4=Minimal Assistance 1=Total Assistance 5=Supervision or Setup 2=Maximal Assistance 6=Modified [place] 3=Moderate Assistance 7=Complete IndependenceSCALE: Activities may be completed with or without assistive devices. 8-Rqcpjhmgsi-yewkbns completes the activity by him/herself with no assistance from a helper. 5-Set-up or Clean-up Assistance-helper sets up or cleans up; patient completes activity. [place] assists only prior to or following the activity. 4-Supervision or Touching Assistance-helper provides verbal cues and/or touching/steadying and/or contact guard assistance as patient completes activity. Assistance may be provided throughout the activity or intermittently. 3-Partial/Moderate Assistance-helper does LESS THAN HALF the effort. [place] lifts, holds or supports trunk or limbs, but provides less than half the effort. 2-Substantial/Maximal Assistance-helper does MORE THAN HALF the effort. [place] lifts or holds trunk or limbs and provides more than half the effort. 3-Htlemixha-ybilda does ALL the effort. Patient does none of the effort to complete the activity. Or, the assistance of 2 or more helpers is required for the patient to complete the activity. If activity was not attempted, code reason: 7-Patient Refused. 9-Not Applicable-not attempted and the patient did not perform the activity before the current illness, exacerbation or injury. 10-Not Attempted due to Environmental Limitations-(lack of equipment, weather restraints, etc.). 88-Not Attempted due to Medical Conditions or Safety Concerns. Eating (QC): 6 Shower/Bathe Self (QC): 5 Upper Body Dressing (QC): 5 Lower Body Dressing (QC): 4 On/Off Footwear: 2 (w/ cam boot) Toileting Hygiene (QC): 4 Toilet Transfer (QC): 4 Shower performed; 100% completed in sitting. Wound vac paused/disconnected and R foot covered by OT prior to activity; c/d/i post task. Pt able to reach all body parts in sitting without assist; R foot not addressed due to being covered. Dressing tasks performed seated on shower bench. No physical assistance required to don clothing. Pt does require Cues for safety as she is non-compliant with NWB on R foot when standing. She continues to need cues for brake management on knee scooter prior to all transfers. Education OT Patient Education: Correct positioning, Progress toward Goal/Update tx plan, Reviewed precautions, Safety issues, Transfer techniques Teaching Recipient: Patient Teaching Methods: Discussion Response to Teaching: Verbalize Understanding, Reinforcement Needed OT Short Term Goals Short Term Goals Time Frame: Nov 08, 2021 Lower body dressin Putting on/taking off footwear: 3 OT Turn Operator Goals Mcfp Goals Time Frame: Nov 22, 2021 Eating (QC): 6 Oral Hygiene (QC): 6 Toileting Hygiene (QC): 6 Shower/Bathe Self (QC): 5 Upper Body Dressing (QC): 6 Lower Body Dressing (QC): 6 On/Off Footwear (QC): 6 Additional Goals: 1-Demonstrate ADL Tasks, 2-Verbalize Understanding, 3-Imp roveStrength/Key 1=Demonstrate adherence to instructed precautions during ADL tasks. 2=Patient will verbalize/demonstrate understanding of assistive devices/modifications for ADL. 3=Patient will improve strength/tolerance for activity to enable patient to perform ADL's. OT Education/Plan Problem List/Assessment Assessment: Decreased Activ Tolerance, Decreased Safety Aware, Decreased UE Strength, Impaired Funct Balance, Impaired Self-Care Skills Discharge Recommendations Plan/Recommendations: Continue POC Treatment Plan/Plan of Care Treatment,Training & Education: Yes Patient would benefit from OT for education, treatment and training to promote independence in ADL's, mobility, safety and/or upper extremity function for ADL's. Plan of Care: ADL Retraining, Functional Mobility, Group Exercise/Act as Ind, UE Funct Exercise/Act Treatment Duration: Nov 22, 2021 Frequency: At least 5 of 7 days/Wk (IRF) Estimated Hrs Per Day: 1.5 hours per day Agreement: Yes Rehab Potential: Fair Time/GCodes Start Time: 08:00 Stop Time: 09:00 Total Time Billed (hr/min): 60 Billed Treatment Time 1 visit ADL x4 Mikala Bolanos OT Oct 30, 2021 09:13
[2021-10-30] MEDS: SENNA W/DOCUSATE (SENOKOT S) TABLET PO SCH ×2 (09:18→21:50)
[2021-10-30] MEDS: DOCUSATE SODIUM 100 MG (COLACE) CAP PO SCH (09:18)
[2021-10-30] MEDS: polyethylene glycoL POWDER 17 GM (MIRALAX) PACK PO SCH ×2 (09:18→19:55)
--- NOTE | 2021-10-30 11:27 | Physical Therapy Daily Note ---
PT Daily Note-Current Subjective Pt sitting in recliner as Wound Care Nurse addresses wound upon arrival. Pt reluctantly agrees to PT. Pt reports wanting to d/c by Thursday. Pain Location: No Pain Reported Mental Status Patient Orientation: Person, Place, Time, Situation Attachments: Other-See Comments (Wound Vac. ) Wound Vac. Transfers SCALE: Activities may be completed with or without assistive devices. 6-Saabxajyoj-naoahxm completes the activity by him/herself with no assistance from a helper. 5-Set-up or Clean-up Assistance-helper sets up or cleans up; patient completes activity. [place] assists only prior to or following the activity. 4-Supervision or Touching Assistance-helper provides verbal cues and/or touching/steadying and/or contact guard assistance as patient completes activity. Assistance may be provided throughout the activity or intermittently. 3-Partial/Moderate Assistance-helper does LESS THAN HALF the effort. [place] lifts, holds or supports trunk or limbs, but provides less than half the effort. 2-Substantial/Maximal Assistance-helper does MORE THAN HALF the effort. [place] lifts or holds trunk or limbs and provides more than half the effort. 1-Yucbnszae-ulhtmi does ALL the effort. Patient does none of the effort to complete the activity. Or, the assistance of 2 or more helpers is required for the patient to complete the activity. If activity was not attempted, code reason: 7-Patient Refused. 9-Not Applicable-not attempted and the patient did not perform the activity before the current illness, exacerbation or injury. 10-Not Attempted due to Environmental Limitations-(lack of equipment, weather restraints, etc.). 88-Not Attempted due to Medical Conditions or Safety Concerns. Sit to Stand (QC): 5 Toilet Transfer (QC): 5 Weight Bearing Right Lower Extremity: Right Non Weight Bearing Left Lower Extremity: Left Full Weight Bearing May use right heel for balance and transfers only Patient's weight bearing status is unclear. She will be treated as NWB on the right foot until this is cleared up. Patient states that at home her doctor told her to be NWB on the right foot except for short distances like going to the restroom. 10/29/21 patient can use the surgical shoe but preferably the cam boot for transfers while having the heel on the ground for transfers but no ambulation, she can use the knee scooter to get around. Gait Training Does the Patient Walk?: Yes Distance: 150' x2 Walk 10 feet (QC): 5 Walk 50 ft with 2 Turns(QC): 5 Walk 150 ft (QC): 5 Gait Persons Needed: 1 Knee scooter used & VC for safety of TF for WB status. Exercises Seated Therapy Exercises: Long arc quads, Hip flexion, Hip abd/add, Glut set Seated Reps: 15 NuStep Minutes: 7 NuStep Workload: 1 Treatments After Wound Care is finished, pt TF from recliner to knee scooter. Pt amb. in hallway using knee scooter. After short RB, pt completes Seated EX then uses NuStep at 7m at WL 1 due to no resistance for R LE. Pt again amb. in hallway, taking RB as needed. Pt returns to room to rest in recliner with all needs met, call light in hand. Assessment Current Status: Fair Progress Pt doesn't abide by WB status. Pt reports SOA during activity but advises this is not new and due to Hgb. PT Short Term Goals Short Term Goals Time Frame: Nov 04, 2021 Roll Left & Right: 6 Sit to lyin Lying to sitting on side of be: 6 Sit to stand: 4 (SBA) Chair/wwp-om-huajm transfer: 4 (SBA) Walk 10 feet: 4 (SBA) Walk 50 feet with two turns: 4 (SBA) PT Sound Assistant Goals Care Home Goals PT Sound Assistant Goals Time Frame: Nov 18, 2021 Roll Left & Right (QC): 6 Sit to Lying (QC): 6 Lying-Sitting on Side/Bed(QC): 6 Sit to Stand (QC): 5 Chair/Rnv-bf-Npotb Xfer(QC): 5 Toilet Transfer (QC): 5 Car Transfer (QC): 5 Does the Patient Walk: Yes Walk 10 feet (QC): 4 Walk 50ft with 2 Turns (QC): 4 Walk 150 ft (QC): 4 Walking 10ft on Uneven Surface: 4 1 Step (curb) (QC): 4 4 Steps (QC): 4 12 Steps (QC): 88 Picking up an Object (QC): 4 Wheel 50 feet with 2 turns (QC: 6 Wheel 150 feet: 6 PT Plan Problem List Problem List: Activity Tolerance, Safety Treatment/Plan Treatment Plan: Continue Plan of Care Treatment Plan: Bed Mobility, Education, Functional Activity Key, Functional Strength, Group Therapy, Gait, Safety, Therapeutic Exercise, Transfers Treatment Duration: Nov 18, 2021 Frequency: At least 5 of 7 days/Wk (IRF) Estimated Hrs Per Day: 1.5 hours per day Patient and/or Family Agrees t: Yes Safety Risks/Education Patient Education: Reviewed Precautions, Correct Positioning, Safety Issues Teaching Recipient: Patient Teaching Methods: Discussion Response to Teaching: Reinforcement Needed Time/GCodes Time In: 1015 Time Out: 1115 Total Billed Treatment Time: 60 Total Billed Treatment 1, FA x2 (25m), GT (15m) & EX (20m) DAWSON SOTO [employer] TE[employer]ER Oct 30, 2021 11:27
[2021-10-30] MEDS: ASCORBIC ACID (VIT C) 500 MG TABLET PO SCH (12:22)
[2021-10-30] MEDS: ZINC SULFATE 220 MG CAPSULE PO SCH (12:22)
[2021-10-30] MEDS: VITAMIN D3 25 MCG (1,000 UNITS) TABLET PO SCH (12:22)
[2021-10-30] MEDS: IRON SUCROSE 200 MG/10 ML (VENOFER) VIAL IV SCH (14:13)
--- NOTE | 2021-10-30 14:39 | Therapy Group Daily Note ---
Therapy Daily Group Note Patient Education Topic Other List Below (ARU Expectations, Environmental Safety & UE/LE Strengthening) Exercises LE Seated Exercise, UE Exercise Session Ratio (pt:therapist): 3:1 Goal of Session: Education on ARU Expectations, Home Safety Strategies, UE/LE Strengthing Goal Met for this Session: Yes Pt Benefit of Group: Contributions to Others, F/U Use of Strategies @Home, Increased Functional Safety, Increased Functional Strength, Improved Cognition, Recognition of Peers, Socialization Other/Notes Pt ambulated to ARU [facility] areas using knee scooter for R LE for OT/PT group. Group consisted of introductions (name,place living, positive things that came from COVID pandemic), socialization, B UE/LE seated exercise and educational topics about ARU, environmental/home safety. Pt able to introduce self appropriately and actively listening to peers. Discussion about grocery picker / packer or delivery in community. Environmental safety Bingo completed with word scramble to work on cognition and problem solving skills. Pt using good dynamic sitting balance during reaching and grasping throughout activities. After session, pt sitting in recliner with call light/phone in reach. All needs met in room. Start Time: 13:00 Stop Time: 14:00 Total Billed Treatment Time: 60 Total Billed Treatment 1, GRP (60m) DAWSON SOTO FURNACE PACKER Oct 30, 2021 14:39
--- NOTE | 2021-10-30 15:11 | Diagnostic Imaging Report ---
INDICATION: Shortness of breath. COMPARISON: 09/30/2021. FINDINGS: Frontal and lateral views of the chest demonstrate bibasilar atelectasis with small effusions. The heart is prominent without pulmonary edema. There is no pneumothorax. Osseous structures are normal. IMPRESSION: Bibasilar atelectasis with small effusions. Follow-up recommended. Dictated by: Dictated on workstation # [id number]
--- NOTE | 2021-10-30 15:56 | Cardiology Progress Note ---
Progress Note-Cardiology Events since last exam Date Seen by Provider: Oct 30, 2021 Time Seen by Provider: 15:56 Events since last exam I am following her due to coronary artery disease and dyspnea on exertion. She still has a fair amount of dyspnea on exertion. She denies dyspnea at rest. Sh e denies chest discomfort, palpitations, or syncope. She has persistent, mild ankle edema, worse on the right. The edema started after her transmetatarsal amputation in September. Certain portions of this document may have been dictated utilizing voice re cognition technology. Inherent to this technology, typographical and grammatical errors may exist. As much as I am diligent to identify and correct these mistakes, some errors may remain in the document. Vitals Last set of Vitals Signs Vital Signs 10/30/21 10/30/21 07:18 09:17 Temp 36.4 Pulse 68 Resp 22 B/P (MAP) 173/74 (107) Pulse Ox 97 O2 Delivery Room Air Exam Vital Signs Vital Signs Date Time Temp Pulse Resp B/P (MAP) Pulse Ox O2 Delivery O2 Flow Rate FiO2 10/30/21 09:17 97 Room Air 10/30/21 07:18 36.4 68 22 173/74 (107) Physical Exam General: Alert. No acute distress. She is obese. Eye: No xanthelasma. HENT: Normocephalic. Neck: Jugular venous pressure does not appear elevated. Respiratory: Lungs are clear to auscultation. Respirations are non-labored. Breath sounds are equal. Symmetrical chest wall expansion. Cardiovascular: Normal rate. Regular rhythm. 2/6 systolic ejection murmur. No gallop. 1+ bilateral pretibial edema slightly worse on right. Right transmetatarsal amputation. Gastrointestinal: Soft. Normal bowel sounds. Skin: Warm. Dry. Neurologic: Alert and oriented to person, place, time. Cranial nerves 3-11 grossly intact. Right-sided weakness. Psychiatric: Cooperative. Appropriate mood & affect. Labs Laboratory Tests Test 10/29/21 20:22 10/30/21 02:18 10/30/21 05:24 10/30/21 10:40 Range/Units Glucometer 91 115 H 85 81 70-110 MG/DL Test 10/30/21 16:54 Range/Units Glucometer 119 H 70-110 MG/DL Radiology ECHOCARDIOGRAM (10/30/2021): 1. This is a technically difficult study due to poor image quality, particularly in the apical views. 2. Left ventricle: The cavity size is normal. There is severe concentric hypertrophy. Systolic function is normal. The estimated ejection fraction is 55- 60%. There were no regional wall motion abnormalities identified. Doppler parameters are consistent with abnormal left ventricular relaxation (grade 1 diastolic dysfunction). 3. Left atrium: The left atrium is moderately dilated with a volume index of 45 mL/m. 4. Aortic valve: There is mild aortic valve sclerosis. 5. Pulmonary arteries: The estimated pulmonary artery systolic pressure is 36 mmHg assuming a right atrial pressure of 5 mmHg. Diagnosis/Problems Diagnosis/Problems (1) Dyspnea on exertion Assessment & Plan: Exact etiology unclear. Her chest x-ray did not show any evidence of pulmonary edema at the time of admission. Her echocardiogram from 10/30 shows a normal ejection fraction. I suspect the majority of her dyspnea may be related to the profound anemia and some component of deconditioning. Even though she has had 3 blood transfusions, her hemoglobin level is still only 7. (2) Aortic valve sclerosis Assessment & Plan: I suspect her heart murmur is due to aortic valve sclerosis. Her follow-up echocardiogram from 10/30 again showed aortic sclerosis without significantly elevated aortic valve gradients. (3) Anemia Status: Acute Assessment & Plan: She was evaluated by hematology who recommended due to anemia and thrombocytopenia that we stop aspirin and clopidogrel. She was placed on clopidogrel by her regular [facility] portal consultant. She has not had any recent coronary stents. I will discontinue the clopidogrel. At this dose of aspirin, coupled with her only moderately decreased platelet count, I would prefer to keep her on low strength aspirin if possible. (4) Coronary artery disease without angina pectoris Assessment & Plan: She had a recent cardiac catheterization in September that did not show any targets for revascularization. I recommend she continue on the present combination of cardiac medications. As above, at the recommendation of hematology, I will stop clopidogrel. (5) Peripheral arterial disease Assessment & Plan: She also has peripheral arterial disease and had a recent transmetatarsal amputation of the right foot. I recommend she continue on aspirin. I have stopped clopidogrel as outlined above. (6) Primary hypertension Assessment & Plan: Her hydralazine and metoprolol have been continued. She is still having intermittently elevated blood pressures. I will start her on losartan. (7) Mixed hyperlipidemia Assessment & Plan: She does not appear to have been on a statin medication at home. However, her LDL level is very low. I will hold off on starting a statin medication at this time. (8) Stage 3 chronic kidney disease Assessment & Plan: With the addition of losartan, we will need to watch her renal function closely. Problem Qualifiers (1) Stage 3 chronic kidney disease: Chronic kidney disease stage 3 subtype: stage 3a (GFR 45-59) Qualified Codes: N18.31 - Chronic kidney disease, stage 3a GELY FOUNTAIN JR, MD Oct 30, 2021 15:56
[2021-10-30 19:16] VITALS: BP 159/68
[2021-10-30] MEDS ORDERED: LOSARTAN 50 MG (COZAAR) TAB ONE (21:04)
[2021-10-30] MEDS ORDERED: LOSARTAN 50 MG (COZAAR) TAB PO ONE (21:15)
[2021-10-31] MEDS: inSUlin ASPART (NovoLOG) 1 UNIT/0.01 ML (CHARGE PER UNIT) SC SCH ×4 (05:50→21:36)
[2021-10-31] MEDS: SUCRALFATE 1 GM (CARAFATE) TAB PO SCH ×4 (05:50→21:36)
--- NOTE | 2021-10-31 05:55 | PM&R Progress Note ---
Subjective HPI/CC On Admission Date Seen by Provider: Oct 31, 2021 Time Seen by Provider: 12:00 Subjective/Events-last exam 10/31/2021: Pt is doing about the same Lactic acid is still elevated Sugar is okay Holding Glimiperide Discharge planned for tomorrow she insists Pt has a very poor prognosis overall and she doesn't appear to really be motivated to change much 10/30/2021: Pt is doing really well Lactic acid from Zyvox will ultimately resolve Blood sugars are very low holding Glimepiride and insulin IV iron initiated Midline will be placed Discharge on Thursday since she insists Very complex issues requiring drastic changes in medications and lab work-up and medical decision making 10/29/2021: Pt is doing a little better Still very SOB Hemoglobin remains low at 7.6 Hematology consult today Hep locking IV fluid Hypoglycemia noted, which she does get low at home Murmur is noted but Dr. Lemus manages that so I will have cardiology see her Lactic acid still remains and I did medication evaluation and found Zyvox to likely be the cause so we will hold that and notify Dr. Hodges who has placed h er on that Labile sugars are very concerning We will hold oral hypoglycemic agent to see if we can decrease hypoglycemic episodes and will hold all insulin for now and only do sliding scale Very complex issues Review of Systems General: Fatigue, Malaise Focused Exam Lactate Level 10/29/21 11:26: Lactic Acid Level 6.52*H 10/31/21 06:30: Lactic Acid Level 4.08*H 10/31/21 10:20: Lactic Acid Level 6.40*H Objective Exam Vital Signs Vital Signs Date Time Temp Pulse Resp B/P (MAP) Pulse Ox O2 Delivery O2 Flow Rate FiO2 10/31/21 20:09 36.2 72 16 191/79 (116) 100 Room Air Capillary Refill : General Appearance: No Apparent Distress, WD/WN, Chronically ill, Obese HEENT: PERRL/EOMI, Normal ENT Inspection, Pharynx Normal Neck: Full Range of Motion, Normal Inspection, Non Tender, Supple, Carotid Bruit Respiratory: Chest Non Tender, Lungs Clear, Normal Breath Sounds, No Accessory Muscle Use, No Respiratory Distress Cardiovascular: Regular Rate, Rhythm, No Edema, No Gallop, No JVD, Normal Peripheral Pulses, Systolic Murmur Gastrointestinal: Normal Bowel Sounds, No Organomegaly, No Pulsatile Mass, Non Tender, Soft Back: Normal Inspection, No CVA Tenderness, No Vertebral Tenderness Extremity: Normal Capillary Refill, Normal Inspection, Normal Range of Motion, Non Tender, No Calf Tenderness, No Pedal Edema Neurologic/Psychiatric: Alert, Oriented x3, No Motor/Sensory Deficits, administrative volunteer II- XII Norm as Tested, Abnormal Gait, Depressed Affect, Motor Weakness (Generalized) Skin: Normal Color, Warm/Dry, Other (Wound VAC in place right metatarsal amput ation site) Lymphatic: No Adenopathy Results/Procedures Lab Laboratory Tests 10/31/21 12:37 Patient resulted labs reviewed. FIM Transfers Therapy Code Descriptions/Definitions Functional [place] Measure: 0=Not Assessed/NA 4=Minimal Assistance 1=Total Assistance 5=Supervision or Setup 2=Maximal Assistance 6=Modified [place] 3=Moderate Assistance 7=Complete IndependenceSCALE: Activities may be completed with or without assistive devices. 4-Gvhjwbovmb-mkcibwn completes the activity by him/herself with no assistance from a helper. 5-Set-up or Clean-up Assistance-helper sets up or cleans up; patient completes activity. [place] assists only prior to or following the activity. 4-Supervision or Touching Assistance-helper provides verbal cues and/or touching/steadying and/or contact guard assistance as patient completes activity. Assistance may be provided throughout the activity or intermittently. 3-Partial/Moderate Assistance-helper does LESS THAN HALF the effort. [place] lifts, holds or supports trunk or limbs, but provides less than half the effort. 2-Substantial/Maximal Assistance-helper does MORE THAN HALF the effort. [place] lifts or holds trunk or limbs and provides more than half the effort. 2-Uikmshavh-dwdleq does ALL the effort. Patient does none of the effort to complete the activity. Or, the assistance of 2 or more helpers is required for the patient to complete the activity. If activity was not attempted, code reason: 7-Patient Refused. 9-Not Applicable-not attempted and the patient did not perform the activity before the current illness, exacerbation or injury. 10-Not Attempted due to Environmental Limitations-(lack of equipment, weather restraints, etc.). 88-Not Attempted due to Medical Conditions or Safety Concerns. Roll Left to Right (QC): 6 Sit to Lying (QC): 6 Sit to Stand (QC): 5 Chair/Vyv-yo-Hrsxr Xfer(QC): 4 Car Transfer (QC): 4 Gait Training Does the Patient Walk?: Yes Distance: 150' x2 Walk 10 feet (QC): 5 Walk 50 ft with 2 Turns(QC): 5 Walk 150 ft (QC): 5 Walking 10ft/uneven surface-QC: 4 Gait Persons Needed: 1 Gait Assistive Device: FWW Wheelchair Training Does the Pt Use a Wheelchair?: Yes Distance: 100'x2 Wheel 50 ft with 2 turns (QC): 4 Wheel 150 ft (QC): 88 Type of Wheelchair: Manual Stair Training #of Steps: 1 1 Step (curb) (QC): 4 4 Steps (QC): 88 12 Steps (QC): 88 Balance Picking up an Object (QC): 4 ADL-Treatment Eating (QC): 6 Oral Hygiene (QC): 6 Shower/Bathe Self (QC): 5 Upper Body Dressing (QC): 5 Lower Body Dressing (QC): 4 On/Off Footwear (QC): 2 (w/ cam boot) Toileting Hygiene (QC): 4 Toilet Transfer (QC): 4 Assessment/Plan Assessment and Plan Assess & Plan/Chief Complaint Assessment: Debility Severe anemia status post transfusion Severe iron deficiency anemia Diabetes mellitus brittle control Status post right metatarsal amputation [address] Sarmiento Hypertension Hyperlipidemia Fibromyalgia Depression Lactic acidosis without evidence of sepsis likely due to Zyvox holding today 10/29/2021 after tonight's dose Hypoglycemic episodes holding oral glycemic agent and insulin insulin doing sliding scale starting 10/29/2021 nighttime Plan: Supportive care Transfuse as necessary Consult hematology Iron infusions 10/29/2021: Iron infusions Hold oral hypoglycemic agent and insulin due to hypoglycemic episodes Cardiology and hematology initiated Hold Zyvox due to lactic acidosis 10/30/2021: Continue to hold insulin and glimepiride Hold Plavix and aspirin if okay with Dr. Lemus per hematology recommendations Completed Zyvox Discharge Thursday she insisted although she would benefit from 1 more week in my opinion 10/31/2021: Discharge home tomorrow she is insisting Poor prognosis overall given severe comorbidities and lack of interest in changing the course of medical issues that are worsening (1) Dyspnea on exertion Assessment & Plan: Exact etiology unclear. Her chest x-ray did not show any evidence of pulmonary edema at the time of admission. Her echocardiogram from 10/30 shows a normal ejection fraction. I suspect the majority of her dyspnea may be related to the profound anemia and some component of deconditioning. Even though she has had 3 blood transfusions, her hemoglobin level is still only 7. (2) Aortic valve sclerosis Assessment & Plan: I suspect her heart murmur is due to aortic valve sclerosis. Her follow-up echocardiogram from 10/30 again showed aortic sclerosis without significantly elevated aortic valve gradients. (3) Anemia Status: Acute Assessment & Plan: She was evaluated by hematology who recommended due to anemia and thrombocytopenia that we stop aspirin and clopidogrel. She was placed on clopidogrel by her regular service manager. She has not had any recent coronary stents. I will discontinue the clopidogrel. At this dose of aspirin, coupled with her only moderately decreased platelet count, I would prefer to keep her on low strength aspirin if possible. (4) Coronary artery disease without angina pectoris Assessment & Plan: She had a recent cardiac catheterization in September that did not show any targets for revascularization. I recommend she continue on the present combination of cardiac medications. As above, at the recommendation of hematology, I will stop clopidogrel. (5) Peripheral arterial disease Assessment & Plan: She also has peripheral arterial disease and had a recent transmetatarsal amputation of the right foot. I recommend she continue on aspirin. I have stopped clopidogrel as outlined above. (6) Primary hypertension Assessment & Plan: Her hydralazine and metoprolol have been continued. She is still having intermittently elevated blood pressures. I will start her on losartan. (7) Mixed hyperlipidemia Assessment & Plan: She does not appear to have been on a statin medication at home. However, her LDL level is very low. I will hold off on starting a statin medication at this time. (8) Stage 3 chronic kidney disease Assessment & Plan: With the addition of losartan, we will need to watch her renal function closely. Qualifiers: Chronic kidney disease stage 3 subtype: stage 3a (GFR 45-59) Qualified Codes: N18.31 - Chronic kidney disease, stage 3a NORRISILAVick THOMPSON Oct 31, 2021 05:55
[2021-10-31 07:54] VITALS: BP 154/66
[2021-10-31] MEDS ORDERED: IRON SUCROSE 200 MG/10 ML (VENOFER) VIAL IV SCH (09:00)
[2021-10-31] MEDS: LOSARTAN 50 MG (COZAAR) TAB PO SCH (09:18)
[2021-10-31] MEDS: LACTOBACILLUS ACIDOPHILUS (PROBIOTIC) CAPSULE PO SCH (09:18)
[2021-10-31] MEDS: ASPIRIN 81 MG CHEW (CHILDREN'S ASA) PO SCH (09:18)
[2021-10-31] MEDS: PANTOPRAZOLE 20 MG TABLET (PROTONIX) PO SCH (09:18)
[2021-10-31] MEDS: meTOprolol SUCCINATE 100 MG (TOPROL XL) TAB PO SCH (09:18)
[2021-10-31] MEDS: hydrALAZINE (APRESOLINE) 25 MG TAB PO SCH ×3 (09:18→21:35)
[2021-10-31] MEDS: GABAPENTIN 300 MG (NEURONTIN) CAP PO SCH ×3 (09:18→21:36)
[2021-10-31] MEDS: SENNA W/DOCUSATE (SENOKOT S) TABLET PO SCH ×2 (09:35→21:00)
[2021-10-31] MEDS: DOCUSATE SODIUM 100 MG (COLACE) CAP PO SCH (09:35)
[2021-10-31] MEDS: polyethylene glycoL POWDER 17 GM (MIRALAX) PACK PO SCH ×2 (09:35→21:00)
--- NOTE | 2021-10-31 09:56 | Occupational Ther Daily Note ---
OT Current Status-Daily Note Subjective Pt denies pain, agreeable to treatment. Appearance Pt left sitting in recliner, all needs within reach. Mental Status/Objective Attachments: IV ADL-Treatment Therapy Code Descriptions/Definitions Functional [place] Measure: 0=Not Assessed/NA 4=Minimal Assistance 1=Total Assistance 5=Supervision or Setup 2=Maximal Assistance 6=Modified [place] 3=Moderate Assistance 7=Complete IndependenceSCALE: Activities may be completed with or without assistive devices. 4-Dkcjbqqgej-lgfuswj completes the activity by him/herself with no assistance from a helper. 5-Set-up or Clean-up Assistance-helper sets up or cleans up; patient completes activity. [place] assists only prior to or following the activity. 4-Supervision or Touching Assistance-helper provides verbal cues and/or touching/steadying and/or contact guard assistance as patient completes activity. Assistance may be provided throughout the activity or intermittently. 3-Partial/Moderate Assistance-helper does LESS THAN HALF the effort. [place] lifts, holds or supports trunk or limbs, but provides less than half the effort. 2-Substantial/Maximal Assistance-helper does MORE THAN HALF the effort. [place] lifts or holds trunk or limbs and provides more than half the effort. 4-Frakhaqdu-cuuxds does ALL the effort. Patient does none of the effort to complete the activity. Or, the assistance of 2 or more helpers is required for the patient to complete the activity. If activity was not attempted, code reason: 7-Patient Refused. 9-Not Applicable-not attempted and the patient did not perform the activity before the current illness, exacerbation or injury. 10-Not Attempted due to Environmental Limitations-(lack of equipment, weather restraints, etc.). 88-Not Attempted due to Medical Conditions or Safety Concerns. Eating (QC): 6 Oral Hygiene (QC): 6 Shower/Bathe Self (QC): 5 Upper Body Dressing (QC): 6 Lower Body Dressing (QC): 6 On/Off Footwear: 3 (w/R sock/shoe) Toileting Hygiene (QC): 6 Toilet Transfer (QC): 6 Shower performed on previous date with set up assist. Dressing tasks performed seated EOB. Reminder to don surgical shoe prior to standing. Post shoe donned (with max A), no cues for safety needed. She utilized knee scooter to ambulate throughout room, min cues for brake management. Grooming tasks performed standing (with R knee on knee scooter) at sink, no cues/assist required. Other Treatment Pt participated in UE exercises with dowel moi. 3# resistance added. SOB notable with activity, cues for PLB. Rest break needed after each exercise. Pt able to perform all movements through full range. 10 x1 in all planes. Education OT Patient Education: Correct positioning, Energy conservation, Exercise program, Modified ADL techniques, Progress toward Goal/Update tx plan, Purpose of tx/functional activities, Reviewed precautions, Safety issues, Transfer techniques Teaching Recipient: Patient Teaching Methods: Demonstration, Discussion Response to Teaching: Verbalize Understanding, Return Demonstration, Reinforcement Needed OT Short Term Goals Short Term Goals Time Frame: Nov 08, 2021 Lower body dressin Putting on/taking off footwear: 3 OT Sr. Manager Marketing Goals Sr. Manager Marketing Goals Time Frame: Nov 22, 2021 Eating (QC): 6 Oral Hygiene (QC): 6 Toileting Hygiene (QC): 6 Shower/Bathe Self (QC): 5 Upper Body Dressing (QC): 6 Lower Body Dressing (QC): 6 On/Off Footwear (QC): 6 Additional Goals: 1-Demonstrate ADL Tasks, 2-Verbalize Understanding, 3- ImproveStrength/Key 1=Demonstrate adherence to instructed precautions during ADL tasks. 2=Patient will verbalize/demonstrate understanding of assistive devices/modifications for ADL. 3=Patient will improve strength/tolerance for activity to enable patient to perform ADL's. OT Education/Plan Problem List/Assessment Assessment: Decreased Activ Tolerance, Decreased Safety Aware, Decreased UE Strength, Impaired Funct Balance, Impaired I ADL's Discharge Recommendations Plan/Recommendations: Continue POC Treatment Plan/Plan of Care Treatment,Training & Education: Yes Patient would benefit from OT for education, treatment and training to promote independence in ADL's, mobility, safety and/or upper extremity function for ADL's. Plan of Care: ADL Retraining, Functional Mobility, Group Exercise/Act as Ind, UE Funct Exercise/Act Treatment Duration: Nov 22, 2021 Frequency: At least 5 of 7 days/Wk (IRF) Estimated Hrs Per Day: 1.5 hours per day Agreement: Yes Rehab Potential: Fair Time/GCodes Start Time: 09:00 Stop Time: 10:00 Total Time Billed (hr/min): 60 Billed Treatment Time 1 visit ADL x3 (40 min) EX (20 min) Mikala Bolanos OT Oct 31, 2021 09:56
--- NOTE | 2021-10-31 11:01 | Physical Therapy Daily Note ---
PT Daily Note-Current Subjective Pt. agrees to Rx but states she doesnt understand why she has to do this or what this is all about. Pt. states she doesnt know why she ended up here. Pt. indicates she will do what she wants and handle things the ways she sees fit at home. Pt. requests frequent rest breaks during Tx Pain Location: No Pain Reported Mental Status Patient Orientation: Normal For Age Attachments: Other-See Comments (wound vacc) Transfers SCALE: Activities may be completed with or without assistive devices. 2-Rocecbgqcw-rqmnozl completes the activity by him/herself with no assistance from a helper. 5-Set-up or Clean-up Assistance-helper sets up or cleans up; patient completes activity. [place] assists only prior to or following the activity. 4-Supervision or Touching Assistance-helper provides verbal cues and/or touching/steadying and/or contact guard assistance as patient completes activity. Assistance may be provided throughout the activity or intermittently. 3-Partial/Moderate Assistance-helper does LESS THAN HALF the effort. [place] lifts, holds or supports trunk or limbs, but provides less than half the effort. 2-Substantial/Maximal Assistance-helper does MORE THAN HALF the effort. [place] lifts or holds trunk or limbs and provides more than half the effort. 0-Wulhnogjw-peqjez does ALL the effort. Patient does none of the effort to complete the activity. Or, the assistance of 2 or more helpers is required for the patient to complete the activity. If activity was not attempted, code reason: 7-Patient Refused. 9-Not Applicable-not attempted and the patient did not perform the activity before the current illness, exacerbation or injury. 10-Not Attempted due to Environmental Limitations-(lack of equipment, weather restraints, etc.). 88-Not Attempted due to Medical Conditions or Safety Concerns. Roll Left & Right (QC): 6 Sit to Lying (QC): 6 Lying to Sitting/Side of Bed(Q: 6 Sit to Stand (QC): 5 Chair/Iff-cw-Jmxkc Xfer(QC): 5 Toilet Transfer (QC): 5 Car Transfer (QC): 5 pt. noted to weight bear on right somewhat during TRFs . Pt. expresses that" its not that much and this is how Im going to do this" Weight Bearing Right Lower Extremity: Right Non Weight Bearing Left Lower Extremity: Left Full Weight Bearing May use right heel for balance and transfers only Patient's weight bearing status is unclear. She will be treated as NWB on the right foot until this is cleared up. Patient states that at home her doctor told her to be NWB on the right foot except for short distances like going to the restroom. 10/29/21 patient can use the surgical shoe but preferably the cam boot for transfers while having the heel on the ground for transfers but no ambulation, she can use the knee scooter to get around. Gait Training Does the Patient Walk?: Yes Walk 10 feet (QC): 4 Walk 50 ft with 2 Turns(QC): 4 Walk 150 ft (QC): 4 Walking 10ft/uneven surface-QC: 4 Gait Persons Needed: 1 [id number], 30 ft x 1 knee scooter, pt manages this well no incident . Pt. states "this is junk, its antiquated, mine at home is much better" Wheelchair Training Does the Pt Use a Wheelchair?: No Stair Training #of Steps: 0 1 Step (curb) (QC): 88 4 Steps (QC): 88 12 Steps (QC): 88 Balance Picking up an Object (QC): 88 Exercises Supine Ex: Rolling, Heel Slides, Hip abd/add Supine Reps: 10 Seated Therapy Exercises: Ankle pumps, Sit to stand, Long arc quads, Hip flexion Seated Reps: 10 Assessment Current Status: Fair Progress pt. off on wt bears on RLE with little regard for precautions when reminded, PT Short Term Goals Short Term Goals Time Frame: Nov 04, 2021 Roll Left & Right: 6 Sit to lyin Lying to sitting on side of be: 6 Sit to stand: 4 (SBA) Chair/kyl-ga-xdfpn transfer: 4 (SBA) Walk 10 feet: 4 (SBA) Walk 50 feet with two turns: 4 (SBA) PT Halfway Goals Halfway Goals PT Drug Regulatory Affairs Specialist Goals Time Frame: Nov 18, 2021 Roll Left & Right (QC): 6 Sit to Lying (QC): 6 Lying-Sitting on Side/Bed(QC): 6 Sit to Stand (QC): 5 Chair/Scu-pa-Gjzgw Xfer(QC): 5 Toilet Transfer (QC): 5 Car Transfer (QC): 5 Does the Patient Walk: Yes Walk 10 feet (QC): 4 Walk 50ft with 2 Turns (QC): 4 Walk 150 ft (QC): 4 Walking 10ft on Uneven Surface: 4 1 Step (curb) (QC): 4 4 Steps (QC): 4 12 Steps (QC): 88 Picking up an Object (QC): 4 Wheel 50 feet with 2 turns (QC: 6 Wheel 150 feet: 6 PT Plan Treatment/Plan Treatment Plan: Continue Plan of Care Treatment Plan: Bed Mobility, Education, Functional Activity Key, Functional Strength, Group Therapy, Gait, Safety, Therapeutic Exercise, Transfers Treatment Duration: Nov 18, 2021 Frequency: At least 5 of 7 days/Wk (IRF) Estimated Hrs Per Day: 1.5 hours per day Patient and/or Family Agrees t: Yes Safety Risks/Education Patient Education: Gait Training, Transfer Techniques, Reviewed Precautions, Correct Positioning, Disease Process, Safety Issues Teaching Recipient: Patient Teaching Methods: Demonstration Response to Teaching: Reinforcement Needed Time/GCodes Time In: 1000 Time Out: 1100 Total Billed Treatment Time: 60 Total Billed Treatment 1,GT 25m,FA35m CESILIA IBARRA SIZING SPRAYER Oct 31, 2021 11:01
--- NOTE | 2021-10-31 11:41 | Oncology Progress Note ---
Subjective Date Seen by a Provider: Oct 31, 2021 Time Seen by a Provider: 11:39 Subjective/Events-last exam Pt is improving. She wants to go home. Plan to discharge tomorrow. Will repeat CBC today. Plavix discontinued yesterday. Please schedule a f/u with Dr Frey at the cancer center in 1-2 weeks after efren trivedi. Please give her once more dose of IV iron venofer tomorrow before discharge. I will do the rest infusion with one more dose of weekly IV iron injectofer at the [facility] if needed. Data Review Labs Laboratory Tests 10/28/21 16:48: Glucometer 180H 10/28/21 21:41: 10/29/21 06:00: Glucometer 37*L 10/29/21 06:34: Red Blood Count 2.53L, Hemoglobin 7.5L, Hematocrit 24L, Red Cell Distribution Width 15.1H, Platelet Count 71L, Chloride Level 110H, Carbon Dioxide Level 16L, Blood Urea Nitrogen 37H, Total Protein 6.3L 10/29/21 06:42: 10/29/21 09:10: Mean Blood Glucose 166H, Hemoglobin A1c 7.4H, Lactic Acid Level 6.79*H 10/29/21 11:25: Glucometer 127H 10/29/21 11:26: Lactic Acid Level 6.52*H 10/29/21 16:52: 10/29/21 20:22: 10/30/21 02:18: Glucometer 115H 10/30/21 05:24: 10/30/21 10:40: 10/30/21 16:54: Glucometer 119H 10/30/21 20:07: Glucometer 127H 10/31/21 05:30: 10/31/21 06:30: Lactic Acid Level 4.08*H 10/31/21 10:20: Lactic Acid Level 6.40*H 10/31/21 10:51: Glucometer 167H Physical Exam Vital Signs Vital Signs - First Documented 10/28/21 10/28/21 15:28 20:00 Temp 36.4 Pulse 69 Resp 18 B/P (MAP) 180/75 (110) Pulse Ox 99 O2 Delivery Room Air Capillary Refill : Height, Weight, BMI Height: 5'5.50" Weight: 195lbs. 0.0oz. 88.320216sg; 34.99 BMI Method:Stated General Appearance: No Apparent Distress Focused Exam Lactate Level 10/29/21 11:26: Lactic Acid Level 6.52*H 10/31/21 06:30: Lactic Acid Level 4.08*H 10/31/21 10:20: Lactic Acid Level 6.40*H Lactic Acid Level Laboratory Tests Test 10/31/21 10:20 Lactic Acid Level 6.40 MMOL/L (0.50-2.00) *H Impression & Plan Impression & Plan Imp: 1. Anemia due to the blood loss and infection/chronic illness. 2. Low on iron and saturation suggesting iron deficiency due to blood loss. Ferritin high due to the chronic infection/inflammation. 3. Chronic ulcer of R. forefoot with persistent osteomyelitis s/p amputation Sep 2021 and is under wound care and wound vac. 4. Thrombocytopenia due to infection and ?other causes 5. CAD, 5 vessels disease on plavix and ASA. Plavix and ASA on hold now. Rec: 1. IV iron venofer 200mg IV every other day x 5 doses. Please give her the 3rd dose tomorrow before discharge. 2. Hold off plavix and ASA for 2 weeks while she is severe anemic and thrombocytopenia. Resume ASA when Plt return to normal or above 100K and then resume plavix when Hb is above 10. 3. GI protection with Carafate 1g tid for 2 weeks. 4. I anticipate she will respond to the IV iron in 1-2 weeks. If not, then consider marrow exam. 5. F/u with me at the cancer center in 1-2 weeks after discharge. Please call cancer center for f/u appointment. Thank you. Clinical Quality Measures DVT/VTE Risk/Contraindication: Contraindications-Pharm: Pt at low risk Other: anemia SUE FREY MD Oct 31, 2021 11:41
--- NOTE | 2021-10-31 11:56 | Occupational Ther Daily Note ---
OT Current Status-Daily Note Subjective Denies pain, agreeable to treatment Appearance Left sitting in recliner, all needs within reach. ADL-Treatment Therapy Code Descriptions/Definitions Functional [place] Measure: 0=Not Assessed/NA 4=Minimal Assistance 1=Total Assistance 5=Supervision or Setup 2=Maximal Assistance 6=Modified [place] 3=Moderate Assistance 7=Complete IndependenceSCALE: Activities may be completed with or without assistive devices. 2-Supgwpscfv-ermvmdz completes the activity by him/herself with no assistance from a helper. 5-Set-up or Clean-up Assistance-helper sets up or cleans up; patient completes activity. [place] assists only prior to or following the activity. 4-Supervision or Touching Assistance-helper provides verbal cues and/or touching/steadying and/or contact guard assistance as patient completes activi ty. Assistance may be provided throughout the activity or intermittently. 3-Partial/Moderate Assistance-helper does LESS THAN HALF the effort. [place] lifts, holds or supports trunk or limbs, but provides less than half the effort. 2-Substantial/Maximal Assistance-helper does MORE THAN HALF the effort. [place] lifts or holds trunk or limbs and provides more than half the effort. 7-Gjqhnqeri-gvzesn does ALL the effort. Patient does none of the effort to complete the activity. Or, the assistance of 2 or more helpers is required for the patient to complete the activity. If activity was not attempted, code reason: 7-Patient Refused. 9-Not Applicable-not attempted and the patient did not perform the activity before the current illness, exacerbation or injury. 10-Not Attempted due to Environmental Limitations-(lack of equipment, weather restraints, etc.). 88-Not Attempted due to Medical Conditions or Safety Concerns. Other Treatment Pt requesting HEP with 2# weights as that is what she has at home. With instruction, she was able to perform all movements through full range. 10x2 in all planes. Pt gets SOB after complete set and requires time to rest/recover. Education also provided on energy conservation strategies and simple home mod ifications/adaptations to make tasks easier (specifically in the kitchen) Education OT Patient Education: Correct positioning, Energy conservation, Exercise program Teaching Recipient: Patient Teaching Methods: Demonstration, Discussion Response to Teaching: Verbalize Understanding, Return Demonstration OT Short Term Goals Short Term Goals Time Frame: Nov 08, 2021 Lower body dressin Putting on/taking off footwear: 3 OT Radiological Metallurgist Goals Radiological Metallurgist Goals Time Frame: Nov 22, 2021 Eating (QC): 6 (met) Oral Hygiene (QC): 6 (met) Toileting Hygiene (QC): 6 (met) Shower/Bathe Self (QC): 5 (met) Upper Body Dressing (QC): 6 (met) Lower Body Dressing (QC): 6 (met) On/Off Footwear (QC): 6 (not met) Additional Goals: 1-Demonstrate ADL Tasks, 2-Verbalize Understanding, 3- ImproveStrength/Key 1=Demonstrate adherence to instructed precautions during ADL tasks. 2=Patient will verbalize/demonstrate understanding of assistive devices/modifications for ADL. 3=Patient will improve strength/tolerance for activity to enable patient to perform ADL's. OT Education/Plan Problem List/Assessment Assessment: Decreased Activ Tolerance, Decreased Safety Aware, Decreased UE Strength, Impaired I ADL's Discharge Recommendations Plan/Recommendations: Continue POC Therapy Discharge Recommendati: Homemaker Support, Home & Family Treatment Plan/Plan of Care Treatment,Training & Education: Yes Patient would benefit from OT for education, treatment and training to promote independence in ADL's, mobility, safety and/or upper extremity function for ADL's. Plan of Care: ADL Retraining, Functional Mobility, Group Exercise/Act as Ind, UE Funct Exercise/Act Treatment Duration: Nov 22, 2021 Frequency: At least 5 of 7 days/Wk (IRF) Estimated Hrs Per Day: 1.5 hours per day Agreement: Yes Rehab Potential: Fair Time/GCodes Start Time: 11:25 Stop Time: 11:55 Total Time Billed (hr/min): 30 Billed Treatment Time 1 visit EX rosa Mikala Bolanos OT Oct 31, 2021 11:56
[2021-10-31] MEDS: ASCORBIC ACID (VIT C) 500 MG TABLET PO SCH (12:29)
[2021-10-31] MEDS: VITAMIN D3 25 MCG (1,000 UNITS) TABLET PO SCH (12:29)
[2021-10-31] MEDS: ZINC SULFATE 220 MG CAPSULE PO SCH (12:29)
--- NOTE | 2021-10-31 12:38 | Cardiology Progress Note ---
Progress Note-Cardiology Events since last exam Date Seen by Provider: Oct 31, 2021 Time Seen by Provider: 12:37 Events since last exam I am following her due to coronary artery disease. She is still has a fair amount of dyspnea on exertion when doing physical therapy. She denies chest pain, palpitations, or syncope. Her peripheral edema persists. Certain portions of this document may have been dictated utilizing voice recognition technology. Inherent to this technology, typographical and grammatical errors may exist. As much as I am diligent to identify and correct these mistakes, some errors may remain in the document. Vitals Last set of Vitals Signs Vital Signs 10/31/21 10/31/21 07:54 09:00 Temp 36.4 Pulse 90 Resp 18 B/P (MAP) 154/66 (95) Pulse Ox 97 O2 Delivery Room Air Labs Labs Laboratory Tests 10/31/21 12:37 Exam Vital Signs Vital Signs Date Time Temp Pulse Resp B/P (MAP) Pulse Ox O2 Delivery O2 Flow Rate FiO2 10/31/21 09:00 97 Room Air 10/31/21 07:54 36.4 90 18 154/66 (95) Physical Exam General: Alert. No acute distress. Eye: No xanthelasma. HENT: Normocephalic. Neck: Jugular venous pressure does not appear elevated. Respiratory: Lungs are clear to auscultation. Respirations are non-labored. Breath sounds are equal. Symmetrical chest wall expansion. Cardiovascular: Normal rate. Regular rhythm. 2/6 systolic ejection murmur. No gallop. 1+ bilateral pretibial edema, slightly worse on the right. Right transmetatarsal amputation. Gastrointestinal: Soft. Normal bowel sounds. Skin: Warm. Dry. Neurologic: Alert and oriented to person, place, time. Cranial nerves 3-11 grossly intact. Psychiatric: Cooperative. Appropriate mood & affect. Labs Laboratory Tests Test 10/30/21 16:54 10/30/21 20:07 10/31/21 05:30 10/31/21 06:30 Range/Units Glucometer 119 H 127 H 75 70-110 MG/DL Lactic Acid Level 4.08 *H 0.50-2.00 MMOL/L Test 10/31/21 10:20 10/31/21 10:51 10/31/21 12:37 Range/Units Lactic Acid Level 6.40 *H 0.50-2.00 MMOL/L Glucometer 167 H 70-110 MG/DL White Blood Count 6.1 4.3-11.0 10^3/uL Red Blood Count 2.35 L 3.80-5.11 10^6/uL Hemoglobin 7.0 L 11.5-16.0 g/dL Hematocrit 22 L 35-52 % Mean Corpuscular Volume 95 80-99 fL Mean Corpuscular Hemoglobin 30 25-34 pg Mean Corpuscular Hemoglobin Concent 32 32-36 g/dL Red Cell Distribution Width 15.5 H 10.0-14.5 % Platelet Count 59 L 130-400 10^3/uL Mean Platelet Volume 10.4 9.0-12.2 fL Immature Granulocyte % (Auto) 0 % Neutrophils (%) (Auto) 63 42-75 % Lymphocytes (%) (Auto) 26 12-44 % Monocytes (%) (Auto) 6 0-12 % Eosinophils (%) (Auto) 5 0-10 % Basophils (%) (Auto) 0 0-10 % Neutrophils # (Auto) 3.8 1.8-7.8 10^3/uL Lymphocytes # (Auto) 1.6 1.0-4.0 10^3/uL Monocytes # (Auto) 0.4 0.0-1.0 10^3/uL Eosinophils # (Auto) 0.3 0.0-0.3 10^3/uL Basophils # (Auto) 0.0 0.0-0.1 10^3/uL Immature Granulocyte # (Auto) 0.0 0.0-0.1 10^3/uL Percent Immature Platelet Fraction 3.7 0.0-7.6 % Diagnosis/Problems Diagnosis/Problems (1) Coronary artery disease without angina pectoris Assessment & Plan: She had a recent cardiac catheterization in September that did not show any targets for revascularization. I recommend she continue on the present combination of cardiac medications. At the recommendation of hematology, I have stopped her clopidogrel. She did not have a strong indication for this medication anyhow. (2) Peripheral arterial disease Assessment & Plan: She also has peripheral arterial disease and had a recent transmetatarsal amputation of the right foot. I recommend she continue on aspirin. I have stopped clopidogrel as outlined above. (3) Primary hypertension Assessment & Plan: I started her on losartan on 10/30 due to persistently elevated blood pressures despite taking her metoprolol and hydralazine. This will need to be monitored. (4) Dyspnea on exertion Assessment & Plan: Exact etiology unclear. Her chest x-ray did not show any evidence of pulmonary edema at the time of admission. Her echocardiogram from 10/30 showed a normal ejection fraction. I suspect the majority of her dyspnea may be related to the profound anemia and some component of deconditioning. Even though she has had 3 blood transfusions, her hemoglobin level is still only 7. (5) Aortic valve sclerosis Assessment & Plan: I suspect her heart murmur is due to aortic valve sclerosis. Her follow-up echocardiogram from 10/30 again showed aortic sclerosis without significantly elevated aortic valve gradients. (6) Anemia Status: Acute Assessment & Plan: She was evaluated by hematology who recommended due to anemia and thrombocytopenia that we stop aspirin and clopidogrel. She was placed on clopidogrel by her regular host/hostess head. She has not had any recent coronary stents. I will discontinue the clopidogrel. At this dose of aspirin, coupled with her only moderately decreased platelet count, I would prefer to keep her on low strength aspirin if possible. (7) Mixed hyperlipidemia Assessment & Plan: She does not appear to have been on a statin medication at home. However, her LDL level is very low. I will hold off on starting a statin medication at this time. (8) Stage 3 chronic kidney disease Assessment & Plan: With the addition of losartan, we will need to watch her renal function closely. Problem Qualifiers (1) Stage 3 chronic kidney disease: Chronic kidney disease stage 3 subtype: stage 3a (GFR 45-59) Qualified Codes: N18.31 - Chronic kidney disease, stage 3a GELY FOUNTAIN JR, MD Oct 31, 2021 12:38
[2021-10-31 12:44] LABS: BASOPHILS % (AUTO) 0 % (0-10); EOSINOPHILS # (AUTO) 0.3 10^3/uL (0.0-0.3); PLATELET COUNT 59 10^3/uL (130-400)
[2021-10-31 12:46] LABS: EOSINOPHILS % (AUTO) 5 % (0-10); HEMATOCRIT 22 % (35-52); LYMPHOCYTES # (AUTO) 1.6 10^3/uL (1.0-4.0); LYMPHOCYTES % (AUTO) 26 % (12-44); MEAN CORPUSCULAR HEMOGLOBIN 30 pg (25-34); MEAN CORPUSCULAR HGB CONC 32 g/dL (32-36); MEAN CORPUSCULAR VOLUME 95 fL (80-99); MEAN PLATELET VOLUME 10.4 fL (9.0-12.2); MONOCYTES # (AUTO) 0.4 10^3/uL (0.0-1.0); MONOCYTES % (AUTO) 6 % (0-12); NEUTROPHILS # (AUTO) 3.8 10^3/uL (1.8-7.8); NEUTROPHILS % (AUTO) 63 % (42-75); WHITE BLOOD COUNT 6.1 10^3/uL (4.3-11.0)
--- NOTE | 2021-10-31 13:59 | Physical Therapy Daily Note ---
PT Daily Note-Current Subjective Pt. in bed, declines a trial attempt at picking an item up from floor, "I never do that and I'm not going to try" Pt. agrees to ther ex in bed. Pain Location: No Pain Reported Mental Status Patient Orientation: Normal For Age Attachments: Other-See Comments (wound vacc, special shoe right) Transfers SCALE: Activities may be completed with or without assistive devices. 5-Oksuhkyrjs-wfoxner completes the activity by him/herself with no assistance from a helper. 5-Set-up or Clean-up Assistance-helper sets up or cleans up; patient completes activity. [place] assists only prior to or following the activity. 4-Supervision or Touching Assistance-helper provides verbal cues and/or touch ing/steadying and/or contact guard assistance as patient completes activity. Assistance may be provided throughout the activity or intermittently. 3-Partial/Moderate Assistance-helper does LESS THAN HALF the effort. [place] lifts, holds or supports trunk or limbs, but provides less than half the effort. 2-Substantial/Maximal Assistance-helper does MORE THAN HALF the effort. [place] lifts or holds trunk or limbs and provides more than half the effort. 7-Rrwpwbzlx-pxbbmg does ALL the effort. Patient does none of the effort to complete the activity. Or, the assistance of 2 or more helpers is required for the patient to complete the activity. If activity was not attempted, code reason: 7-Patient Refused. 9-Not Applicable-not attempted and the patient did not perform the activity before the current illness, exacerbation or injury. 10-Not Attempted due to Environmental Limitations-(lack of equipment, weather restraints, etc.). 88-Not Attempted due to Medical Conditions or Safety Concerns. Roll Left & Right (QC): 6 Sit to Lying (QC): 6 Lying to Sitting/Side of Bed(Q: 6 Sit to Stand (QC): 6 Chair/Hls-og-Wyzsg Xfer(QC): 6 Toilet Transfer (QC): 6 Car Transfer (QC): 6 pt. cautioned to maintain NWBing status but does briefly wt bear during car and toilet TRF Weight Bearing Right Lower Extremity: Right Non Weight Bearing Left Lower Extremity: Left Full Weight Bearing May use right heel for balance and transfers only Patient's weight bearing status is unclear. She will be treated as NWB on the right foot until this is cleared up. Patient states that at home her doctor told her to be NWB on the right foot except for short distances like going to the restroom. 10/29/21 patient can use the surgical shoe but preferably the cam boot for transfers while having the heel on the ground for transfers but no ambulation, she can use the knee scooter to get around. Exercises Supine Ex: Bridging, Ankle pumps, Quad Set, Rolling, Glut sets, Heel Slides, Short Arc Quads, Scooting, Straight leg raise, Hip abd/add (sidelying ) Supine Reps: 20 Assessment Current Status: Good Progress pt. is noncompliant with NWBing but states that her understanding from her Dr is not that she needs to be horse race timer NWB PT Short Term Goals Short Term Goals Time Frame: Nov 04, 2021 Roll Left & Right: 6 Sit to lyin Lying to sitting on side of be: 6 Sit to stand: 4 (SBA) Chair/npk-ax-cgqxa transfer: 4 (SBA) Walk 10 feet: 4 (SBA) Walk 50 feet with two turns: 4 (SBA) PT Roof [place] Tile Setter Goals Mcc Goals PT Roof [place] Tile Setter Goals Time Frame: Nov 18, 2021 Roll Left & Right (QC): 6 Sit to Lying (QC): 6 Lying-Sitting on Side/Bed(QC): 6 Sit to Stand (QC): 5 Chair/Qir-bf-Dzihf Xfer(QC): 5 Toilet Transfer (QC): 5 Car Transfer (QC): 5 Does the Patient Walk: Yes Walk 10 feet (QC): 4 Walk 50ft with 2 Turns (QC): 4 Walk 150 ft (QC): 4 Walking 10ft on Uneven Surface: 4 1 Step (curb) (QC): 4 4 Steps (QC): 4 12 Steps (QC): 88 Picking up an Object (QC): 4 Wheel 50 feet with 2 turns (QC: 6 Wheel 150 feet: 6 PT Plan Treatment/Plan Treatment Plan: Continue Plan of Care Treatment Plan: Bed Mobility, Education, Functional Activity Key, Functional Strength, Group Therapy, Gait, Safety, Therapeutic Exercise, Transfers Treatment Duration: Nov 18, 2021 Frequency: At least 5 of 7 days/Wk (IRF) Estimated Hrs Per Day: 1.5 hours per day Patient and/or Family Agrees t: Yes Safety Risks/Education Patient Education: Transfer Techniques, Reviewed Precautions, Correct Positioning, Disease Process, Safety Issues Teaching Recipient: Patient Teaching Methods: Demonstration, Discussion Response to Teaching: Verbalize Understanding, Return Demonstration, Reinforcement Needed Time/GCodes Time In: 1340 Time Out: 1410 Total Billed Treatment Time: 30 Total Billed Treatment 1,EX30m CESILIA IBARRA REVERSAL PRINT INSPECTOR Oct 31, 2021 13:59
[2021-10-31 20:09] VITALS: BP 191/79
[2021-11-01] MEDS ORDERED: LOSA50TA63 PO (06:11)
[2021-11-01] MEDS ORDERED: INSU100I29 SQ (06:11)
[2021-11-01] MEDS ORDERED: SUCR1TAB PO (06:11)
[2021-11-01] MEDS ORDERED: INSU100I14 SQ (06:11)
--- NOTE | 2021-11-01 06:12 | D/C HH Face to Face Order ---
D/C Face to Face Orders Reconcile Patient Problems Problems Reviewed?: Yes Instructions for Patient Via [place], Patient Instructions/FollowUp: PCP 1 week Physician to follow Patient: [facility] Discharge Diet for Home: ADA Diet Patient Problems: Brittle DM Foot wound Patient Data-Allergies,Ht & Wt Patient Allergies: Coded Allergies: No Known Drug Allergies (Unverified , 10/28/21) Height (Feet): 5 Height (Inches): 5.50 Weight (Pounds): 195 Weight (Ounces): 0.0 Home Health Need/Face to Face Date of Face to Face: Nov 01, 2021 Clinical Findings: Instability, Muscle weakness I have seen Pt jatv-ei-dueb: Yes Discharged To: Home Diagnosis/Conditions: Debility Patient is Homebound due to: Bere fall risk due to instabilty, Muscle weakness, Non-weight bearing, Pain w/ambulation Homebound Status Due to the above stated illness, injury or surgical procedure (medical condition or diagnosis) and associated clinical findings, the patient is homebound because of his/her inability to leave home except with aid of a supportive device and/or person AND leaving the home requires a considerable and taxing effort or is medically contraindicated. Pt req the following assistanc: [facility] Home Health Nursing Orders Home Health Services Order: Nursing Services, Jet Wiper-Evaluate & Treat, Physical Therapy-Evaluate & Treat, Wound Care-Eval/Treat Home Health Infusion Therapy Line Start Date: Oct 30, 2021 Certify Stmt I certify that this patient is under my care and that I, a nurse practitioner or a physician; a application assistant working with me, had a face to face encounter that - meets the physician face to face encounter requirements with this patient as dated. CARMEN NORRIS DO Nov 01, 2021 06:12
--- NOTE | 2021-11-01 06:13 | Discharge Summary ---
Diagnosis/Chief Complaint Date of Admission Oct 28, 2021 at 13:30 Date of Discharge Discharge Date: Nov 01, 2021 Discharge Diagnosis Assessment: Debility Severe anemia status post transfusion Severe iron deficiency anemia Diabetes mellitus brittle control Status post right metatarsal amputation [address] Sarmiento Hypertension Hyperlipidemia Fibromyalgia Depression Lactic acidosis without evidence of sepsis likely due to Zyvox holding today 10/29/2021 after tonight's dose Hypoglycemic episodes holding oral glycemic agent and insulin insulin doing sliding scale starting 10/29/2021 nighttime Plan: Supportive care Transfuse as necessary Consult hematology Iron infusions 10/29/2021: Iron infusions Hold oral hypoglycemic agent and insulin due to hypoglycemic episodes Cardiology and hematology initiated Hold Zyvox due to lactic acidosis 10/30/2021: Continue to hold insulin and glimepiride Hold Plavix and aspirin if okay with Dr. Lemus per hematology recommendations Completed Zyvox Discharge Thursday she insisted although she would benefit from 1 more week in my opinion 10/31/2021: Discharge home tomorrow she is insisting Poor prognosis overall given severe comorbidities and lack of interest in changing the course of medical issues that are worsening Discharge Summary Discharge Physical Examination Allergies: Coded Allergies: No Known Drug Allergies (Unverified , 10/28/21) Vitals & I&Os Vital Signs Date Time Temp Pulse Resp B/P (MAP) Pulse Ox O2 Delivery O2 Flow Rate FiO2 11/01/21 11:52 36.4 66 18 175/75 98 Room Air General Appearance: Alert, Oriented X3, Cooperative Respiratory: Clear to Auscultation Cardiovascular: Regular Rate Psych/Mental Status: Mental Status NL Hospital Course Was the Problem List Reviewed?: Yes Pt had a brief hospital course for 5 days, when she reluctantly came after an episode of severe anemia. She received a transfusion at that time, an iron infusion, along with B12. Hematology was consulted. Pt continued the wound vac. Overall pt improved enough, that I did hold a lot of her oral hyperglycemic agents and insulin due to hypoglycemia. Lactic acidosis remains. She finished up with the Zyvox, of which I thought that was the source, but it could very well just be the multiple issues that she has with diabetes. It could very well just be a chronic state for her. Pt has a very poor prognosis given her apathy. Labs (last 24 hrs) Laboratory Tests 10/28/21 16:48: Glucometer 180H 10/28/21 21:41: Glucometer 90 10/29/21 06:00: Glucometer 37*L 10/29/21 06:34: White Blood Count 5.9, Red Blood Count 2.53L, Hemoglobin 7.5L, Hematocrit 24L, Mean Corpuscular Volume 94, Mean Corpuscular Hemoglobin 30, Mean Corpuscular Hemoglobin Concent 32, Red Cell Distribution Width 15.1H, Platelet Count 71L, Mean Platelet Volume 10.0, Immature Granulocyte % (Auto) 0, Neutrophils (%) (Auto) 63, Lymphocytes (%) (Auto) 26, Monocytes (%) (Auto) 7, Eosinophils (%) (Auto) 5, Basophils (%) (Auto) 0, Neutrophils # (Auto) 3.7, Lymphocytes # (Auto) 1.5, Monocytes # (Auto) 0.4, Eosinophils # (Auto) 0.3, Basophils # (Auto) 0.0, Immature Granulocyte # (Auto) 0.0, Percent Immature Platelet Fraction 3.7, Sodium Level 138, Potassium Level 4.2, Chloride Level 110H, Carbon Dioxide Level 16L, Anion Gap 12, Blood Urea Nitrogen 37H, Creatinine 1.10, Estimat Glomerular Filtration Rate 56, BUN/Creatinine Ratio 34, Glucose Level 77, Calcium Level 8.7, Corrected Calcium 9.0, Total Bilirubin 0.4, Aspartate Amino Transf (AST/SGOT) 17, Alanine Aminotransferase (ALT/SGPT) 27, Alkaline Phosphatase 68, Total Protein 6.3L, Albumin 3.6, Triglycerides Level 64, Cholesterol Level 79, LDL Cholesterol Direct 20, VLDL Cholesterol 13, HDL Cholesterol 40 10/29/21 06:42: Glucometer 79 10/29/21 09:10: Mean Blood Glucose 166H, Hemoglobin A1c 7.4H, Lactic Acid Level 6.79*H 10/29/21 11:25: Glucometer 127H 10/29/21 11:26: Lactic Acid Level 6.52*H 10/29/21 16:52: Glucometer 70 10/29/21 20:22: Glucometer 91 10/30/21 02:18: Glucometer 115H 10/30/21 05:24: Glucometer 85 10/30/21 10:40: Glucometer 81 10/30/21 16:54: Glucometer 119H 10/30/21 20:07: Glucometer 127H 10/31/21 05:30: Glucometer 75 10/31/21 06:30: Lactic Acid Level 4.08*H 10/31/21 10:20: Lactic Acid Level 6.40*H 10/31/21 10:51: Glucometer 167H 10/31/21 12:37: White Blood Count 6.1, Red Blood Count 2.35L, Hemoglobin 7.0L, Hematocrit 22L, Mean Corpuscular Volume 95, Mean Corpuscular Hemoglobin 30, Mean Corpuscular Hemoglobin Concent 32, Red Cell Distribution Width 15.5H, Platelet Count 59L, Mean Platelet Volume 10.4, Immature Granulocyte % (Auto) 0, Neutrophils (%) (Au to) 63, Lymphocytes (%) (Auto) 26, Monocytes (%) (Auto) 6, Eosinophils (%) (Auto) 5, Basophils (%) (Auto) 0, Neutrophils # (Auto) 3.8, Lymphocytes # (Auto) 1.6, Monocytes # (Auto) 0.4, Eosinophils # (Auto) 0.3, Basophils # (Auto) 0.0, Immature Granulocyte # (Auto) 0.0, Percent Immature Platelet Fraction 3.7 10/31/21 16:26: Glucometer 124H 10/31/21 20:57: Glucometer 172H 11/01/21 05:30: Glucometer 161H Pending Labs Laboratory Tests 10/28/21 16:48: Glucometer 180 10/28/21 21:41: Glucometer 90 10/29/21 06:00: Glucometer 37 10/29/21 06:34: White Blood Count 5.9, Red Blood Count 2.53, Hemoglobin 7.5, Hematocrit 24, Mean Corpuscular Volume 94, Mean Corpuscular Hemoglobin 30, Mean Corpuscular Hemoglobin Concent 32, Red Cell Distribution Width 15.1, Platelet Count 71, Mean Platelet Volume 10.0, Immature Granulocyte % (Auto) 0, Neutrophils (%) (Auto) 63, Lymphocytes (%) (Auto) 26, Monocytes (%) (Auto) 7, Eosinophils (%) (Auto) 5, Basophils (%) (Auto) 0, Neutrophils # (Auto) 3.7, Lymphocytes # (Auto) 1.5, Monocytes # (Auto) 0.4, Eosinophils # (Auto) 0.3, Basophils # (Auto) 0.0, Immature Granulocyte # (Auto) 0.0, Percent Immature Platelet Fraction 3.7, Sodium Level 138, Potassium Level 4.2, Chloride Level 110, Carbon Dioxide Level 16, Anion Gap 12, Blood Urea Nitrogen 37, Creatinine 1.10, Estimat Glomerular Filtration Rate 56, BUN/Creatinine Ratio 34, Glucose Level 77, Calcium Level 8.7, Corrected Calcium 9.0, Total Bilirubin 0.4, Aspartate Amino Transf (AST/SGOT) 17, Alanine Aminotransferase (ALT/SGPT) 27, Alkaline Phosphatase 68, Total Protein 6.3, Albumin 3.6, Triglycerides Level 64, Cholesterol Level 79, LDL Cholesterol Direct 20, VLDL Cholesterol 13, HDL Cholesterol 40 10/29/21 06:42: Glucometer 79 10/29/21 09:10: Mean Blood Glucose 166, Hemoglobin A1c 7.4, Lactic Acid Level 6.79 10/29/21 11:25: Glucometer 127 10/29/21 11:26: Lactic Acid Level 6.52 10/29/21 16:52: Glucometer 70 10/29/21 20:22: Glucometer 91 10/30/21 02:18: Glucometer 115 10/30/21 05:24: Glucometer 85 10/30/21 10:40: Glucometer 81 10/30/21 16:54: Glucometer 119 10/30/21 20:07: Glucometer 127 10/31/21 05:30: Glucometer 75 10/31/21 06:30: Lactic Acid Level 4.08 10/31/21 10:20: Lactic Acid Level 6.40 10/31/21 10:51: Glucometer 167 10/31/21 12:37: White Blood Count 6.1, Red Blood Count 2.35, Hemoglobin 7.0, Hematocrit 22, Mean Corpuscular Volume 95, Mean Corpuscular Hemoglobin 30, Mean Corpuscular Hemoglobin Concent 32, Red Cell Distribution Width 15.5, Platelet Count 59, Mean Platelet Volume 10.4, Immature Granulocyte % (Auto) 0, Neutrophils (%) (Auto) 63, Lymphocytes (%) (Auto) 26, Monocytes (%) (Auto) 6, Eosinophils (%) (Auto) 5, Basophils (%) (Auto) 0, Neutrophils # (Auto) 3.8, Lymphocytes # (Auto) 1.6, Monocytes # (Auto) 0.4, Eosinophils # (Auto) 0.3, Basophils # (Auto) 0.0, Immature Granulocyte # (Auto) 0.0, Percent Immature Platelet Fraction 3.7 10/31/21 16:26: Glucometer 124 10/31/21 20:57: Glucometer 172 11/01/21 05:30: Glucometer 161 Discharge Home Medications: Active Scripts Active Sucralfate 1 Gm Tablet 1 Gm PO ACHS Losartan Potassium 50 Mg Tablet 50 Mg PO DAILY Levemir Flextouch (Insulin Detemir) 100 Unit/1 Ml Insuln.pen 5 Unit SQ HS 7 Days Novolog Flexpen (Insulin Aspart) 300 Units/3 Ml Solution 3 Units SQ TIDWM 7 Days Reported Probiotic (Lactobacillus Acidophilus) 1 Each Capsule 2 Each PO DAILY Vitamin C (Ascorbic Acid) 500 Mg Tablet 500 Mg PO 1200 Vitamin D3 (Cholecalciferol (Vitamin D3)) 50 Mcg Capsule 50 Mcg PO 1200 Zinc (Zinc Sulfate) 50 Mg Tablet 50 Mg PO 1200 Victoza 3-Rigo (Liraglutide) 0.6 Mg/0.1 Ml Pen.injctr 1.8 Mg SQ HS Stool Softener (Docusate Sodium) 100 Mg Capsule 200 Mg PO DAILY Neurontin (Gabapentin) 300 Mg Capsule 900 Mg PO TID TAKES 3 (300MG) CAPSULES Pantoprazole Sodium 20 Mg Tablet.dr 20 Mg PO DAILY Aspirin 81 Mg Tab.chew 81 Mg PO DAILY Hydralazine HCl 50 Mg Tablet 50 Mg PO TID Metoprolol Succinate 200 Mg Tab.er.24h 200 Mg PO DAILY Instructions to patient/family Please see electronic discharge instructions given to patient. 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
[2021-11-01 07:20] VITALS: BP 151/73
[2021-11-01] MEDS: inSUlin ASPART (NovoLOG) 1 UNIT/0.01 ML (CHARGE PER UNIT) SC SCH (07:50)
[2021-11-01] MEDS: SUCRALFATE 1 GM (CARAFATE) TAB PO SCH (07:51)
[2021-11-01] MEDS: meTOprolol SUCCINATE 100 MG (TOPROL XL) TAB PO SCH (09:32)
[2021-11-01] MEDS: LOSARTAN 50 MG (COZAAR) TAB PO SCH (09:32)
[2021-11-01] MEDS: ASPIRIN 81 MG CHEW (CHILDREN'S ASA) PO SCH (09:32)
[2021-11-01] MEDS: IRON SUCROSE 200 MG/10 ML (VENOFER) VIAL IV SCH (09:32)
[2021-11-01] MEDS: PANTOPRAZOLE 20 MG TABLET (PROTONIX) PO SCH (09:32)
[2021-11-01] MEDS: LACTOBACILLUS ACIDOPHILUS (PROBIOTIC) CAPSULE PO SCH (09:32)
[2021-11-01] MEDS: hydrALAZINE (APRESOLINE) 25 MG TAB PO SCH (09:32)
[2021-11-01] MEDS: GABAPENTIN 300 MG (NEURONTIN) CAP PO SCH (09:32)
[2021-11-01] MEDS: DOCUSATE SODIUM 100 MG (COLACE) CAP PO SCH (09:34)
[2021-11-01] MEDS: polyethylene glycoL POWDER 17 GM (MIRALAX) PACK PO SCH (09:35)
[2021-11-01] MEDS: SENNA W/DOCUSATE (SENOKOT S) TABLET PO SCH (09:35)
--- NOTE | 2021-11-01 10:46 | Oncology Progress Note ---
Subjective Date Seen by a Provider: Nov 01, 2021 Time Seen by a Provider: 10:00 Subjective/Events-last exam Pt will go home today. Minimal bleeding from the wound vac. She looks better today and ready to go home. I am aware of her Hb dropped from 7.5 to 7.0 and plt from 71 to 59 today. She is off plavix since 10/31/2021. Off ASA too. Pt can be discharged from hematology point of view. I will see her on 11/13/21 at 1:30pm at the cancer center. Please give her venofer injection today before discharge. Data Review Labs Laboratory Tests 10/31/21 12:37 Laboratory Tests 10/29/21 11:25: Glucometer 127H 10/29/21 11:26: Lactic Acid Level 6.52*H 10/29/21 16:52: 10/29/21 20:22: 10/30/21 02:18: Glucometer 115H 10/30/21 05:24: 10/30/21 10:40: 10/30/21 16:54: Glucometer 119H 10/30/21 20:07: Glucometer 127H 10/31/21 05:30: 10/31/21 06:30: Lactic Acid Level 4.08*H 10/31/21 10:20: Lactic Acid Level 6.40*H 10/31/21 10:51: Glucometer 167H 10/31/21 12:37: Red Blood Count 2.35L, Hemoglobin 7.0L, Hematocrit 22L, Red Cell Distribution Width 15.5H, Platelet Count 59L 10/31/21 16:26: Glucometer 124H 11/01/21 05:30: Glucometer 161H Physical Exam Vital Signs Vital Signs - First Documented 10/28/21 10/28/21 15:28 20:00 Temp 36.4 Pulse 69 Resp 18 B/P (MAP) 180/75 (110) Pulse Ox 99 O2 Delivery Room Air Capillary Refill : Height, Weight, BMI Height: 5'5.50" Weight: 195lbs. 0.0oz. [id number]; 34.99 BMI Method:Stated General Appearance: No Apparent Distress Extremity: Other (foot wound looks good, minimal drainage and bleeding) Focused Exam Lactate Level 10/29/21 11:26: Lactic Acid Level 6.52*H 10/31/21 06:30: Lactic Acid Level 4.08*H 10/31/21 10:20: Lactic Acid Level 6.40*H Impression & Plan Impression & Plan Imp: 1. Anemia due to the blood loss and infection/chronic illness. 2. Low on iron and saturation suggesting iron deficiency due to blood loss. She had this before the surgery. Ferritin high due to the chronic infection/inflammation. 3. Chronic ulcer of R. forefoot with persistent osteomyelitis s/p amputation Sep 2021 and is under wound care and wound vac. 4. Thrombocytopenia due to infection and ?other causes 5. CAD, 5 vessels disease on plavix and ASA. Plavix and ASA on hold now. Rec: 1. IV iron venofer 200mg IV every other day x 5 doses. Please give her the 3rd dose today before discharge. 2. Hold off plavix and ASA for 2 weeks while she is severe anemic and thrombocytopenia. Resume ASA when Plt return to normal or above 100K and then resume plavix when Hb is above 10. 3. GI protection with Carafate 1g tid for 2 weeks. 4. I anticipate she will respond to the IV iron in 1-2 weeks. If not, then consider marrow exam. 5. F/u with me at the cancer center on 11/13/2021 after discharge. Pt knows to call if any new issues. Clinical Quality Measures DVT/VTE Risk/Contraindication: Contraindications-Pharm: Pt at low risk Other: anemia SUE FREY MD Nov 01, 2021 10:46
--- NOTE | 2021-11-01 10:53 | Therapy Team Discharge Summary ---
Therapy Discharge Summary Discharge Recommendations Date of Discharge Physical Therapy Patient came to rehab with anemia/debility. Upon evaluation patient performs rolling and supine <-> sit with independence, sit <-> stand and transfers with CGA, car transfer CGA, ambulate 20' with a rolling walker with CGA (including 10' over an uneven surface), propel a manual WC 100' with SBA, went up and down 1 step using a rolling walker with CGA, and picked up an object from the floor with CGA. Patient has been performing bed mobility and transfer training, balance and endurance training, functional strengthening, gait training, and education. Patient has made fair progress and has met her longterm goals except for ambulating over an uneven surface, picking up an object from the floor, and stairs. Now, patient performs bed mobility and transfers with independence, car transfer independent, uses a knee scooter for 150' with SBA (including 50' with at least 2 turns of 90 degrees), patient declines picking up an object from the floor and because of non-compliance with weight bearing restrictions, she is not safe to perform stairs. Patient is being discharged from this facility today and will be discharged from PT at this time. Roll Left to Right (QC): 6 Sit to Lying (QC): 6 Lying to Sitting/Side of Bed(Q: 6 Sit to Stand (QC): 6 Chair/Jzb-gi-Buzvv Xfer(QC): 6 Toilet Transfer (QC): 5 Car Transfer (QC): 6 Does the Patient Walk: Yes Mode of Locomotion: Both Anticipated Mode of Locomotion: Both Walk 10 feet (QC): 4 Walk 50 ft with 2 Turns(QC): 4 Walk 150 ft (QC): 4 Walking 10ft on uneven surface: 4 Distance: 20' Gait Assistive Device: FWW Does the Pt Use a Wheelchair: No Wheelchair Distance: 100'x2 Wheel 50 ft with 2 turns (QC): 4 Wheel 150 ft (QC): 88 Type of Wheelchair: Manual #of Steps: 0 1 Step (curb) (QC): 88 4 Steps (QC): 88 12 Steps (QC): 88 Walking Assistive Device: Walker Balance Sitting Static: Normal Balance Sitting Dynamic: Normal Balance-Standing Static: Fair Picking up an Object (QC): 88 Occupational Therapy Decreased Activ Tolerance, Decreased Safety Aware, Decreased UE Strength, Impaired I ADL's Eating (QC): 6 Oral Hygiene (QC): 6 Shower/Bathe Self (QC): 5 Upper Body Dressing (QC): 6 Lower Body Dressing (QC): 6 On/Off Footwear (QC): 3 (w/R sock/shoe) Toileting Hygiene (QC): 6 PT Spinal Surgeon Goals Spinal Surgeon Goals PT Mcc Goals Time Frame: Nov 18, 2021 Roll Left to Right (QC): 6 Sit to Lying (QC): 6 Lying-Sitting on Side/Bed(QC): 6 Sit to Stand (QC): 5 Chair/Hph-ss-Nnuhy Xfer(QC): 5 Car Transfer (QC): 5 Does the Patient Walk: Yes Walk 10 feet (QC): 4 Walk 10ft-Uneven Surface(QC): 4 Walk 50ft with 2 Turns (QC): 4 Walk 150 ft (QC): 4 Wheel 50 feet with 2 turns (QC: 6 1 Step (curb) (QC): 4 4 Steps (QC): 4 12 Steps (QC): 88 Picking up an Object (QC): 4 OT Spinal Surgeon Goals Mcc Goals Time Frame: Nov 22, 2021 Eating (QC): 6 (met) Oral Hygiene (QC): 6 (met) Shower/Bathe Self (QC): 5 (met) Upper Body Dressing (QC): 6 (met) Lower Body Dressing (QC): 6 (met) On/Off Footwear (QC): 6 (not met) Toileting Hygiene (QC): 6 (met) Toilet/Commode Transfer (QC): 5 Additional Goals: 1-Demonstrate ADL Tasks, 2-Verbalize Understanding, 3-ImproveStrength/Key 1=Demonstrate adherence to instructed precautions during ADL tasks. 2=Patient will verbalize/demonstrate understanding of assistive devices/modifications for ADL. 3=Patient will improve strength/tolerance for activity to enable patient to perform ADL's. FAVIOLA MEZA PT Nov 01, 2021 10:53
[2021-11-01 11:52] VITALS: BP 175/75
--- NOTE | 2021-11-01 14:31 | Therapy Team Discharge Summary ---
Therapy Discharge Summary Discharge Recommendations Date of Discharge Nov 01, 2021 at 11:00 Therapy D/C Recommendations: Home w/ Family Support, Homemaker Support Physical Therapy Roll Left to Right (QC): 6 Sit to Lying (QC): 6 Lying to Sitting/Side of Bed(Q: 6 Sit to Stand (QC): 6 Chair/Sch-hr-Cblcd Xfer(QC): 6 Toilet Transfer (QC): 5 Car Transfer (QC): 6 Does the Patient Walk: Yes Mode of Locomotion: Both Anticipated Mode of Locomotion: Both Walk 10 feet (QC): 4 Walk 50 ft with 2 Turns(QC): 4 Walk 150 ft (QC): 4 Walking 10ft on uneven surface: 4 Distance: 20' Gait Assistive Device: FWW Does the Pt Use a Wheelchair: No Wheelchair Distance: 100'x2 Wheel 50 ft with 2 turns (QC): 4 Wheel 150 ft (QC): 88 Type of Wheelchair: Manual #of Steps: 0 1 Step (curb) (QC): 88 4 Steps (QC): 88 12 Steps (QC): 88 Walking Assistive Device: Walker Balance Sitting Static: Normal Balance Sitting Dynamic: Normal Balance-Standing Static: Fair Picking up an Object (QC): 88 Occupational Therapy Pt arrived to ARU post anemia/debility. At time of eval she was max a for footwear, min a for LB dressing, sba for toileting and bathing, set up for upper body dressing, and indep with oral care and eating. While on Rehab, OT focused on safety, balance, energy conservation, adaptive strategies, endurance, and UE strengthening needed for improved performance and safety with adls. Pt made good progress and met all of her halfway goals excep footwear due to needing assist with donning cam boot (which pt's can assist with.) Pt is now discharged from this facility and will be discharged from OT. Decreased Activ Tolerance, Decreased Safety Aware, Decreased UE Strength, Impa ired I ADL's Eating (QC): 6 Oral Hygiene (QC): 6 Shower/Bathe Self (QC): 5 Upper Body Dressing (QC): 6 Lower Body Dressing (QC): 6 On/Off Footwear (QC): 3 (w/R sock/shoe) Toileting Hygiene (QC): 6 PT Custom Motorcycle Painter Goals [facility] Goals PT Custom Motorcycle Painter Goals Time Frame: Nov 18, 2021 Roll Left to Right (QC): 6 Sit to Lying (QC): 6 Lying-Sitting on Side/Bed(QC): 6 Sit to Stand (QC): 5 Chair/Qbb-tg-Nkhlj Xfer(QC): 5 Car Transfer (QC): 5 Does the Patient Walk: Yes Walk 10 feet (QC): 4 Walk 10ft-Uneven Surface(QC): 4 Walk 50ft with 2 Turns (QC): 4 Walk 150 ft (QC): 4 Wheel 50 feet with 2 turns (QC: 6 1 Step (curb) (QC): 4 4 Steps (QC): 4 12 Steps (QC): 88 Picking up an Object (QC): 4 OT Custom Motorcycle Painter Goals [facility] Goals Time Frame: Nov 22, 2021 Eating (QC): 6 (met) Oral Hygiene (QC): 6 (met) Shower/Bathe Self (QC): 5 (met) Upper Body Dressing (QC): 6 (met) Lower Body Dressing (QC): 6 (met) On/Off Footwear (QC): 6 (not met) Toileting Hygiene (QC): 6 (met) Toilet/Commode Transfer (QC): 5 (met) Additional Goals: 1-Demonstrate ADL Tasks, 2-Verbalize Understanding, 3- ImproveStrength/Key 1=Demonstrate adherence to instructed precautions during ADL tasks. 2=Patient will verbalize/demonstrate understanding of assistive devices/modifications for ADL. 3=Patient will improve strength/tolerance for activity to enable patient to perform ADL's. Mikala Bolanos OT Nov 01, 2021 14:31
== END 2021-11-01 11:00 | disposition home health service (06) | DRG 948 ==
PROVIDERS: ADMIT Internal Medicine; ATTEND Internal Medicine
DX: R53.81 Other malaise (principal); D62 Acute posthemorrhagic anemia; T87.43 Infection of amputation stump, right lower extremity; M86.9 Osteomyelitis, unspecified; L97.419 Non-pressure chronic ulcer of right heel and midfoot with unspecified severity; E87.2 Acidosis; E10.69 Type 1 diabetes mellitus with other specified complication; E10.65 Type 1 diabetes mellitus with hyperglycemia; E10.621 Type 1 diabetes mellitus with foot ulcer; E10.42 Type 1 diabetes mellitus with diabetic polyneuropathy; E10.649 Type 1 diabetes mellitus with hypoglycemia without coma; E10.51 Type 1 diabetes mellitus with diabetic peripheral angiopathy without gangrene; S20.01XD Contusion of right breast, subsequent encounter; E10.22 Type 1 diabetes mellitus with diabetic chronic kidney disease; N18.31 Chronic kidney disease, stage 3a; I35.0 Nonrheumatic aortic (valve) stenosis; E78.2 Mixed hyperlipidemia; M79.7 Fibromyalgia; F41.9 Anxiety disorder, unspecified; F32.A Depression, unspecified; D69.6 Thrombocytopenia, unspecified; I25.10 Atherosclerotic heart disease of native coronary artery without angina pectoris; Z79.4 Long term (current) use of insulin; Z79.84 Long term (current) use of oral hypoglycemic drugs; Z87.891 Personal history of nicotine dependence; Z95.5 Presence of coronary angioplasty implant and graft; Z95.1 Presence of aortocoronary bypass graft; Z87.01 Personal history of pneumonia (recurrent); Z83.3 Family history of diabetes mellitus; Z82.0 Family history of epilepsy and other diseases of the nervous system; Z82.49 Family history of ischemic heart disease and other diseases of the circulatory system; Z79.02 Long term (current) use of antithrombotics/antiplatelets; Z79.82 Long term (current) use of aspirin; W19.XXXD Unspecified fall, subsequent encounter
CPT/HCPCS: 36410; 36415; 71046; 76937; 80053; 80061; 82947; 83036; 83605; 85025; 93306

== ENCOUNTER 2021-11-04 18:03 | Emergency (ER) | payer MEDICARE, OTHER ==
[~2021-11-04] VITALS: Ht 165.1 cm; Wt 92.9 kg
[2021-11-04] VITALS (7 sets, daily range): BP systolic 152–180; BP diastolic 45–68
[~2021-11-04 18:03] MED LIST changes: +LOSA50TA63 PO; +SUCR1TAB PO
--- NOTE | 2021-11-04 18:24 | ED Respiratory ---
General Stated Complaint: WEAKNESS,SOB Source: patient Exam Limitations: no limitations History of Present Illness Date Seen by Provider: Nov 04, 2021 Time Seen by Provider: 18:06 Initial Comments 66yoF with PMH of CAD with stenting, DM and recent osteomyelitis of the right foot s/p partial amputation with wound vac on 10/04/21 coming in due to SOA. She says she has been anemic and has been SOA since the surgery. She endorses having 3 transfusions and iron infusions in the past. Does not believe she is bleeding from anywhere. Recently started following with hematology regarding this. 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 Denies any chest pain, n/v/d, bloody stool, abd pain, focal weakness, numbness, or any other concerns. Is eating and drinking normally. Allergies and Home Medications Allergies Coded Allergies: No Known Drug Allergies (Unverified , 10/28/21) Patient Home Medication List Home Medication List Reviewed: Yes Ascorbic Acid (Vitamin C) 500 Mg Tablet, 500 MG PO 1200, (Reported) Entered as Reported by: DAPHNEY SHIRLEY on 10/01/21 1150 Aspirin (Aspirin) 81 Mg Tab.chew, 81 MG PO DAILY, (Reported) Entered as Reported by: AMY TODD on 04/27/18 1329 Cholecalciferol (Vitamin D3) (Vitamin D3) 50 Mcg Capsule, 50 MCG PO 1200, (Reported) Entered as Reported by: DAPHNEY SHIRLEY on 10/01/21 1150 Docusate Sodium (Stool Softener) 100 Mg Capsule, 200 MG PO DAILY, (Reported) Entered as Reported by: DAPHNEY SHIRLEY on 09/06/20 1002 Gabapentin (Neurontin) 300 Mg Capsule, 900 MG PO TID, (Reported) Entered as Reported by: ANIYA ISABEL on 04/02/20 1448 Hydralazine HCl (Hydralazine HCl) 50 Mg Tablet, 50 MG PO TID, (Reported) Entered as Reported by: ANASTASIIA SMITH on 02/04/18 1521 Insulin Aspart (Novolog Flexpen) 300 Units/3 Ml Solution, 3 UNITS SQ TIDWM Prescribed by: CARMEN NORRIS on 11/01/21 0611 Insulin Detemir (Levemir Flextouch) 100 Unit/1 Ml Insuln.pen, 5 UNIT SQ HS Prescribed by: CARMEN NORRIS on 11/01/21 0611 Lactobacillus Acidophilus (Probiotic) 1 Each Capsule, 2 EACH PO DAILY, (Reported) Entered as Reported by: VALERIA FAJARDO on 10/03/21 0943 Liraglutide (Victoza 3-Rigo) 0.6 Mg/0.1 Ml Pen.injctr, 1.8 MG SQ HS, (Reported) Entered as Reported by: DAPHNEY SHIRLEY on 11/27/20 0958 Losartan Potassium (Losartan Potassium) 50 Mg Tablet, 50 MG PO DAILY Prescribed by: CARMEN NORRIS on 11/01/21 0611 Metoprolol Succinate (Metoprolol Succinate) 200 Mg Tab.er.24h, 200 MG PO DAILY, (Reported) Entered as Reported by: ANASTASIIA SMITH on 02/04/18 1521 Pantoprazole Sodium (Pantoprazole Sodium) 20 Mg Tablet.dr, 20 MG PO DAILY, (Reported) Entered as Reported by: AMY TODD on 08/16/19 1445 Sucralfate (Sucralfate) 1 Gm Tablet, 1 GM PO ACHS Prescribed by: CARMEN NORRIS on 11/01/21 0611 Sulfamethoxazole/Trimethoprim (Bactrim Ds Tablet) 1 Each Tablet, 1 EACH PO BID Prescribed by: DINORA LEAHY on 11/04/212036 Zinc Sulfate (Zinc) 50 Mg Tablet, 50 MG PO 1200, (Reported) Entered as Reported by: DAPHNEY SHIRLEY on 10/01/21 1150 Discontinued Medications Clopidogrel Bisulfate (Clopidogrel) 75 Mg Tablet, 75 MG PO DAILY, (Reported) Entered as Reported by: AMY TODD on 08/16/19 1445 Glimepiride (Glimepiride) 4 Mg Tablet, 4 MG PO BID, (Reported) Entered as Reported by: JACQUES SHANNON on 12/05/17 0950 Ibuprofen (Ibuprofen) 200 Mg Tablet, 600 MG PO Q6H PRN for PAIN-MILD (1-4), (Reported) Entered as Reported by: VIV ESTRELLA on 10/28/21 0916 Linezolid (Linezolid) 600 Mg Tablet, 600 MG PO BID, (Reported) Entered as Reported by: DAPHNEY SHIRLEY on 10/01/21 1150 Review of Systems Review of Systems Constitutional: No chills, No fever EENTM: No blurred vision Respiratory: No cough; short of breath Cardiovascular: No chest pain Gastrointestinal: No abdominal pain, No diarrhea, No nausea, No vomiting Musculoskeletal: no symptoms reported Skin: no symptoms reported Psychiatric/Neurological: No Symptoms Reported Hematologic/Lymphatic: No Symptoms Reported Immunological/Allergic: no symptoms reported All Other Systems Reviewed Negative Unless Noted: Yes Past Iuiezav-Vcgeoc-Kzosoi Hx Patient Social History Tobacco Use?: No Immunizations Up To Date Tetanus Booster (TDap): Unknown PED Vaccines UTD: No First/Initial COVID19 Vaccinat: none Second COVID19 Vaccination Ramesh: none Third COVID19 Vaccination Date: none Seasonal Allergies Seasonal Allergies: No Past Medical History Surgery/Hospitalization HX: FIVE STENTS PLACED APPROX. 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 [employer] History: Menopausal Sexually Transmitted Disease: No HIV/AIDS: No Genitourinary: Yes UTI-Chronic Gastrointestinal: Yes Gall Bladder Disease Musculoskeletal: Yes Amputee, Fibromyalgia Endocrine: Yes Diabetes, Insulin dep HEENT: No (GLASSES) Loss of Vision: Denies Hearing Impairment: Denies Cancer: No Psychosocial: No Integumentary: Yes (diabetic ulcer right foot) Blood Disorders: No Adverse Reaction/Blood Tranf: No (N/A) Family Medical History Cardiovascular disease 19 MOTHER, G8 BROTHER G8 BROTHER Completed stroke 19 MOTHER, Diabetes mellitus 19 FATHER, 19 MOTHER, G8 BROTHER G8 SISTER FH: brain tumor FH: breast cancer 19 MOTHER, FH: lung cancer FHx: peripheral neuropathy Hypertension 19 FATHER, Lung c 19 FATHER, Myocardial infarction 19 MOTHER, Neuro No Pertinent Family Hx Physical Exam Vital Signs - First Documented 11/04/21 18:15 Temp 36.6 Pulse 81 Resp 22 B/P (MAP) 166/55 (92) Pulse Ox 95 O2 Delivery Room Air Capillary Refill : Height: 5'5.50" Weight: 195lbs. 0.0oz. [id number]; 34.99 BMI Method:Stated General Appearance: WD/WN, no apparent distress Eyes: Bilateral Eye Normal Inspection HEENT: PERRL/EOMI, normal ENT inspection, pharynx normal Neck: non-tender, full range of motion, supple, normal inspection Respiratory: chest non-tender, lungs clear, normal breath sounds, no respiratory distress, no accessory muscle use Cardiovascular: regular rate, rhythm, no edema, no murmur Gastrointestinal: normal bowel sounds, non tender, soft; No guarding, No rebound Extremities: normal range of motion, non-tender, normal inspection, no pedal edema, no calf tenderness, normal capillary refill, other (Wound VAC in place along the right foot with the skin around it normal-appearing, not red, no pus coming around the sides, and is nontender) Neurologic/Psychiatric: no motor/sensory deficits, alert, normal mood/affect Skin: normal color, warm/dry Lymphatic: no adenopathy Progress/Results/Core Measures Suspected Sepsis SIRS Temperature: Pulse: Respiratory Rate: Laboratory Tests 11/04/21 18:43: White Blood Count 13.1H Blood Pressure / Mean: Laboratory Tests 11/04/21 18:43: Creatinine 0.91, INR Comment 1.0, Platelet Count 94L, Total Bilirubin 0.3 Results/Orders Lab Results Laboratory Tests Test 11/04/21 18:43 11/04/21 22:51 Range/Units White Blood Count 13.1 H 4.3-11.0 10^3/uL Red Blood Count 2.16 L 3.80-5.11 10^6/uL Hemoglobin 6.5 *L 7.8 L 11.5-16.0 g/dL Hematocrit 21 L 24 L 35-52 % Mean Corpuscular Volume 95 80-99 fL Mean Corpuscular Hemoglobin 30 25-34 pg Mean Corpuscular Hemoglobin Concent 32 32-36 g/dL Red Cell Distribution Width 15.3 H 10.0-14.5 % Platelet Count 94 L 130-400 10^3/uL Mean Platelet Volume 11.4 9.0-12.2 fL Immature Granulocyte % (Auto) 10 % Neutrophils (%) (Auto) 56 42-75 % Lymphocytes (%) (Auto) 20 12-44 % Monocytes (%) (Auto) 12 0-12 % Eosinophils (%) (Auto) 2 0-10 % Basophils (%) (Auto) 0 0-10 % Neutrophils # (Auto) 7.3 1.8-7.8 10^3/uL Lymphocytes # (Auto) 2.7 1.0-4.0 10^3/uL Monocytes # (Auto) 1.6 H 0.0-1.0 10^3/uL Eosinophils # (Auto) 0.3 0.0-0.3 10^3/uL Basophils # (Auto) 0.0 0.0-0.1 10^3/uL Immature Granulocyte # (Auto) 1.3 H 0.0-0.1 10^3/uL Percent Immature Platelet Fraction 7.9 H 0.0-7.6 % Erythrocyte Sedimentation Rate 59 H 0-30 MM/HR Absolute Reticulocyte Count 9 L 24-90 10e9/uL Percent Reticulocyte Count 0.40 L 0.50-2.40 % Prothrombin Time 14.1 12.2-14.7 SEC INR Comment 1.0 0.8-1.4 Activated Partial Thromboplast Time 39 H 24-35 SEC Sodium Level 138 135-145 MMOL/L Potassium Level 3.8 3.6-5.0 MMOL/L Chloride Level 105 98-107 MMOL/L Carbon Dioxide Level 20 L 21-32 MMOL/L Anion Gap 13 5-14 MMOL/L Blood Urea Nitrogen 19 H 7-18 MG/DL Creatinine 0.91 0.60-1.30 MG/DL Estimat Glomerular Filtration Rate 70 BUN/Creatinine Ratio 21 Glucose Level 218 H 70-105 MG/DL Calcium Level 8.4 L 8.5-10.1 MG/DL Corrected Calcium 8.6 8.5-10.1 MG/DL Total Bilirubin 0.3 0.1-1.0 MG/DL Aspartate Amino Transf (AST/SGOT) 27 5-34 U/L Alanine Aminotransferase (ALT/SGPT) 31 0-55 U/L Alkaline Phosphatase 94 40-136 U/L Troponin I < 0.028 <0.028 NG/ML C-Reactive Protein High Sensitivity 1.31 H 0.00-0.50 MG/DL B-Type Natriuretic Peptide 419.0 H <100.0 PG/ML Total Protein 6.4 6.4-8.2 GM/DL Albumin 3.7 3.2-4.5 GM/DL My Orders Orders - DINORA LEAHY MD Cbc With Automated Diff (11/04/21 18:18) Comprehensive Metabolic Panel (11/04/21 18:18) Protime With Inr (11/04/21 18:18) Partial Thromboplastin Time (11/04/21 18:18) Type And Screen (11/04/21 18:18) Chest 1 View, Ap/Pa Only (11/04/21 18:18) Ed Iv/Invasive Line Start (11/04/21 18:18) Ekg Tracing (11/04/21 18:18) Monitor-Rhythm Ecg Trace Only (11/04/21 18:18) Troponin I Ross (11/04/21 18:18) Bnp Kiah (11/04/21 18:18) Reticulocyte Count (11/04/21 18:39) Vital Signs: Special (Order) (11/04/21 19:08) Consent-Obtain Consent For (11/04/21 19:08) Monitor S/S Transfusion Reacti (11/04/21 19:08) Ns Iv 500 Ml (Sodium Chloride 0.9%) (11/04/21 19:15) Red Cells Leukocytes Reduced (11/04/21 19:08) Hs C Reactive Protein (11/04/21 20:28) Erythrocyte Sedimentation Rate (11/04/21 20:28) Sulfamethoxazole/Trimet Ds Tab (Bactrim (11/04/21 21:00) Hemoglobin And Hematocrit (11/04/21 22:30) Medications Given in ED Current Medications Medications Dose Ordered Sig/[place] Route Start Time Stop Time Status Last Admin Dose Admin Trimethoprim/ Sulfamethoxazole 1 ea ONCE ONCE PO 11/04/21 21:00 11/04/21 21:01 DC 11/04/21 22:45 1 EA Vital Signs/I&O 11/04/21 11/04/21 11/04/21 11/04/21 18:15 20:07 20:27 20:54 Temp 36.6 37.3 37.2 37.2 Pulse 81 74 74 78 Resp 22 20 13 14 B/P (MAP) 166/55 (92) 158/57 152/45 159/61 Pulse Ox 95 93 96 96 O2 Delivery Room Air Room Air Room Air Room Air 11/04/21 11/04/2122 21:22 21:56 22:38 Temp 37.7 37.1 37.0 Pulse 76 75 71 Resp 17 14 16 B/P (MAP) 167/56 163/68 178/65 Pulse Ox 95 93 96 O2 Delivery Room Air Room Air Capillary Refill : Progress Note : Progress Note 66yoF with above history coming in feeling SOA from what she states is chronic anemia. ABCs intact and VSS on presentation. She is well appearing and breathing comfortably. No signs of DVT. Is not tachycardic and O2 sat normal. Lower suspicion for PE. Hemoglobin came back at 6.5 which is low and reticulocyte is low. I am concerned this is a primary hematologic problem which the patient is following with hematology. I offered to do a rectal exam to see if she is having a GI bleed, but the patient is adamant that she does not want to have this. I discussed that this could be something that could be intervened on and stop her chronic anemia, but she says that she is unwilling to go forward with the procedure. She has capacity to deny this request at this time. She later did have a bowel movement and her stool was brown which is reassuring, and that was occult blood positive, but it is unlikely that she is losing enough blood to cause the anemia from this. I discussed the case with Dr. Norris, and we will opt to give her a unit of blood in the emergency department given the seems to be more of a chronic issue and will discharge the patient home afterwards. Regarding the patient's wound in her foot, the skin is clean, not erythematous, nontender, and normal appearing. She says when they change the wound VAC today there is some sent that was malodorous and they were concerned could be developing infection. She has been off antibiotics for 3 days. I reviewed the culture data, and both bacteria that were growing from the wound were sensitive to Bactrim so I will place her on this for the next 10 days to give her time to follow-up with her regular doctor, and at that time they can come up with a plan if they want her to be on long-term antibiotics. Her white blood cell count is normal and her CRP continues to trend down which is reassuring. Hemoglobin went from 6.5 to 7.8 after transfusion which is appropriate. Overall I believe she is stable for discharge with outpatient follow-up. She was sent home with strict return precautions. ECG Initial ECG Impression Date: Nov 04, 2021 Initial ECG Impression Time: 18:24 Initial ECG Rate: 76 Initial ECG Rhythm: Normal Sinus Comment Narrow QRS, normal axis, T wave inversions in the high lateral leads but otherwise no significant ST changes Diagnostic Imaging Diagonstic Imaging: Xray Plain Films/CT/US/NM/MRI: chest Comments [facility]. [place], [place] NAME: [facility] REC#: [id number] PT STATUS: REG ER : 1955 PHYSICIAN: DINORA LEAHY MD ADMIT DATE: 11/04/21/ER Signed Date of Exam:11/04/21 CHEST 1 VIEW, AP/PA ONLY INDICATION: Short of air, weakness. EXAMINATION: Chest, 11/04/2021. COMPARISON: 10/27/2021. FINDINGS: Single view chest. The cardiomediastinal silhouette is unremarkable. The pulmonary vasculature is within normal limits. The lungs and pleural spaces are clear. IMPRESSION: No evidence of an acute cardiopulmonary process. Dictated by: Dictated on workstation # [id number] Dict: 11/04/21 1849 Trans: 11/04/211903 [facility] [id number] Interpreted by: TERRENCE GILL MD Electronically signed by: TERRENCE GILL MD 11/04/211903 Departure Impression Primary Impression: Symptomatic anemia Additional Impression: Osteomyelitis of right foot Qualified Codes: M86.9 - Osteomyelitis, unspecified Disposition: 01 HOME, SELF-CARE Condition: Stable Departure-Patient Inst. Decision time for Depature: 23:12 Referrals: [facility] (PCP/Family) Primary Care Physician Patient Instructions: Osteomyelitis in Adults Add. Discharge Instructions: Please follow-up with Dr. Sarmiento as well as your regular primary doctor to see if they want you to be on long-term antibiotics. I put you on an antibiotic for the next 10 days to give you time to follow-up so that you guys can come up with a plan. Scripts Sulfamethoxazole/Trimethoprim (Bactrim Ds Tablet) 1 Each Tablet 1 EACH PO BID for 10 Days, #20 TAB Prov: DINORA LEAHY MD 11/04/21 DINORA LEAHY MD Nov 04, 2021 18:24
[2021-11-04 18:50] LABS: MEAN PLATELET VOLUME 11.4 fL (9.0-12.2)
--- NOTE | 2021-11-04 18:52 | Diagnostic Imaging Report ---
INDICATION: Short of air, weakness. EXAMINATION: Chest, 11/04/2021. COMPARISON: 10/27/2021. FINDINGS: Single view chest. The cardiomediastinal silhouette is unremarkable. The pulmonary vasculature is within normal limits. The lungs and pleural spaces are clear. IMPRESSION: No evidence of an acute cardiopulmonary process. Dictated by: Dictated on workstation # [email or web address]
[2021-11-04 18:53] LABS: ABSOLUTE RETIC # 9 10e9/uL (24-90); BASOPHILS % (AUTO) 0 % (0-10); EOSINOPHILS # (AUTO) 0.3 10^3/uL (0.0-0.3); EOSINOPHILS % (AUTO) 2 % (0-10); HEMATOCRIT 21 % (35-52); HEMOGLOBIN 6.5 g/dL (11.5-16.0); LYMPHOCYTES # (AUTO) 2.7 10^3/uL (1.0-4.0); LYMPHOCYTES % (AUTO) 20 % (12-44); MEAN CORPUSCULAR HEMOGLOBIN 30 pg (25-34); MEAN CORPUSCULAR HGB CONC 32 g/dL (32-36); MEAN CORPUSCULAR VOLUME 95 fL (80-99); MONOCYTES # (AUTO) 1.6 10^3/uL (0.0-1.0); MONOCYTES % (AUTO) 12 % (0-12); NEUTROPHILS # (AUTO) 7.3 10^3/uL (1.8-7.8); NEUTROPHILS % (AUTO) 56 % (42-75); PLATELET COUNT 94 10^3/uL (130-400); WHITE BLOOD COUNT 13.1 10^3/uL (4.3-11.0)
[2021-11-04 19:02] LABS: PROTHROMBIN TIME PATIENT 14.1 SEC (12.2-14.7)
[2021-11-04 19:05] LABS: ALBUMIN 3.7 GM/DL (3.2-4.5); CHLORIDE 105 MMOL/L (98-107); POTASSIUM 3.8 MMOL/L (3.6-5.0); SODIUM 138 MMOL/L (135-145)
[2021-11-04 19:06] LABS: CALCIUM 8.4 MG/DL (8.5-10.1)
[2021-11-04 19:08] LABS: GLUCOSE 218 MG/DL (70-105); TOTAL PROTEIN 6.4 GM/DL (6.4-8.2)
[2021-11-04 19:09] LABS: BILIRUBIN,TOTAL 0.3 MG/DL (0.1-1.0); CARBON DIOXIDE 20 MMOL/L (21-32)
[2021-11-04 19:11] LABS: ALKALINE PHOSPHATASE 94 U/L (40-136); CREATININE SERUM 0.91 MG/DL (0.60-1.30); GFR ESTIMATED 70
[2021-11-04 19:12] LABS: BUN/CREATININE RATIO 21
[2021-11-04 19:14] LABS: ALANINE AMINOTRANSFERASE 31 U/L (0-55)
[2021-11-04] MEDS ORDERED: NS IV 500 ML 500 ML IV SCH (19:15)
[2021-11-04] MEDS ORDERED: SULF1TAB38 PO (20:37)
[2021-11-04] MEDS ORDERED: TRIM/SULFAMETH 160/800 (SEPTRA DS) TAB PO ONE (21:00)
[2021-11-04 22:59] LABS: HEMOGLOBIN 7.8 g/dL (11.5-16.0)
== END 2021-11-04 23:22 | disposition home or self-care (01) ==
LOC: EDUNIT# 18:03 → ER 18:06
DX: D64.9 Anemia, unspecified (principal); M86.8X7 Other osteomyelitis, ankle and foot; E11.9 Type 2 diabetes mellitus without complications; Z79.4 Long term (current) use of insulin; Z79.82 Long term (current) use of aspirin
CPT/HCPCS: 36430; 71045; 80053; 83880; 84484; 85014; 85018; 85025; 85045; 85610; 85652; 85730; 86141; 86850; 86900; 86901; 86920; 93005; 93041; 99285; P9016; 36415

== ENCOUNTER → 2021-11-06 | Outpatient (CLI) | payer MEDICARE, OTHER ==
[~2021-11-06] MED LIST changes: +SULF1TAB38 PO
== END ==
LOC: WOUNDCARE 09:59
PROVIDERS: ATTEND Family Medicine
DX: E11.52 Type 2 diabetes mellitus with diabetic peripheral angiopathy with gangrene (principal); E11.65 Type 2 diabetes mellitus with hyperglycemia; E11.621 Type 2 diabetes mellitus with foot ulcer; I70.261 Atherosclerosis of native arteries of extremities with gangrene, right leg; T81.31XA Disruption of external operation (surgical) wound, not elsewhere classified, initial encounter; M86.071 Acute hematogenous osteomyelitis, right ankle and foot; L97.513 Non-pressure chronic ulcer of other part of right foot with necrosis of muscle; R23.1 Pallor; D50.8 Other iron deficiency anemias
CPT/HCPCS: 11042; 97605; A6234; G0463

== ENCOUNTER → 2021-11-13 | Outpatient (CLI) | payer MEDICARE, OTHER ==
[~2021-11-13] MED LIST changes: -FLUC150T2 PO; +FLUC150T41 PO
== END ==
LOC: WOUNDCARE 09:58
PROVIDERS: ATTEND Family Medicine
DX: E11.621 Type 2 diabetes mellitus with foot ulcer (principal); L97.513 Non-pressure chronic ulcer of other part of right foot with necrosis of muscle; I70.234 Atherosclerosis of native arteries of right leg with ulceration of heel and midfoot; T81.31XA Disruption of external operation (surgical) wound, not elsewhere classified, initial encounter; E11.65 Type 2 diabetes mellitus with hyperglycemia; M86.071 Acute hematogenous osteomyelitis, right ankle and foot; D50.8 Other iron deficiency anemias; E11.52 Type 2 diabetes mellitus with diabetic peripheral angiopathy with gangrene; R23.1 Pallor
CPT/HCPCS: 11042; 97605; G0463

== ENCOUNTER 2021-11-15 09:56 | Outpatient (RCR) | payer MEDICARE, OTHER ==
[~2021-11-15 09:56] MED LIST changes: +FERRIC CARBOXYMALTOSE (CANCER) 750 MG in NS (IVPB) CANCER CENTER 250 ML IV SCH
== END 2021-12-12 | disposition home or self-care (01) ==
LOC: ONC 09:56
PROVIDERS: ATTEND Internal Medicine Hematology & Oncology
DX: D50.9 Iron deficiency anemia, unspecified (principal); E11.9 Type 2 diabetes mellitus without complications; E78.5 Hyperlipidemia, unspecified; I10 Essential (primary) hypertension; E66.9 Obesity, unspecified; Z98.890 Other specified postprocedural states
CPT/HCPCS: 96365; 99213

== ENCOUNTER → 2021-11-20 | Outpatient (CLI) | payer MEDICARE, OTHER ==
[~2021-11-20] MED LIST changes: -FERRIC CARBOXYMALTOSE (CANCER) 750 MG in NS (IVPB) CANCER CENTER 250 ML IV SCH
== END ==
LOC: WOUNDCARE 10:01
PROVIDERS: ATTEND Family Medicine
DX: E11.621 Type 2 diabetes mellitus with foot ulcer (principal); I70.234 Atherosclerosis of native arteries of right leg with ulceration of heel and midfoot; T81.31XA Disruption of external operation (surgical) wound, not elsewhere classified, initial encounter; E11.65 Type 2 diabetes mellitus with hyperglycemia; M86.071 Acute hematogenous osteomyelitis, right ankle and foot; L97.513 Non-pressure chronic ulcer of other part of right foot with necrosis of muscle; D50.8 Other iron deficiency anemias; E11.52 Type 2 diabetes mellitus with diabetic peripheral angiopathy with gangrene; R23.1 Pallor
CPT/HCPCS: 11042; 97607; A6207; A9272; G0463

== ENCOUNTER → 2021-11-20 | Outpatient (CLI) | payer MEDICARE, OTHER ==
[2021-11-20 11:30] LABS: BASOPHILS # (AUTO) 0.1 10^3/uL (0.0-0.1); BASOPHILS % (AUTO) 1 % (0-10); EOSINOPHILS # (AUTO) 0.1 10^3/uL (0.0-0.3); EOSINOPHILS % (AUTO) 2 % (0-10); HEMATOCRIT 33 % (35-52); HEMOGLOBIN 10.2 g/dL (11.5-16.0); LYMPHOCYTES # (AUTO) 1.1 10^3/uL (1.0-4.0); LYMPHOCYTES % (AUTO) 15 % (12-44); MEAN CORPUSCULAR HEMOGLOBIN 31 pg (25-34); MEAN CORPUSCULAR HGB CONC 31 g/dL (32-36); MEAN CORPUSCULAR VOLUME 99 fL (80-99); MONOCYTES # (AUTO) 0.7 10^3/uL (0.0-1.0); MONOCYTES % (AUTO) 9 % (0-12); NEUTROPHILS # (AUTO) 5.3 10^3/uL (1.8-7.8); NEUTROPHILS % (AUTO) 72 % (42-75); PLATELET COUNT 228 10^3/uL (130-400); WHITE BLOOD COUNT 7.3 10^3/uL (4.3-11.0)
== END ==
LOC: LAB 11:09
PROVIDERS: ATTEND Pediatrics
DX: M86.271 Subacute osteomyelitis, right ankle and foot (principal); D64.9 Anemia, unspecified
CPT/HCPCS: 36415; 85025

== ENCOUNTER → 2021-11-21 | Outpatient (CLI) | payer MEDICARE, OTHER | LOC: WOUNDCARE 09:31 | PROVIDERS: ATTEND Family Medicine | DX: L97.513 Non-pressure chronic ulcer of other part of right foot with necrosis of muscle (principal) | CPT/HCPCS: 97607; A9272; G0463 ==

== ENCOUNTER → 2021-11-27 | Outpatient (CLI) | payer MEDICARE, OTHER | LOC: WOUNDCARE 10:02 | PROVIDERS: ATTEND Family Medicine | DX: E11.621 Type 2 diabetes mellitus with foot ulcer (principal); L97.513 Non-pressure chronic ulcer of other part of right foot with necrosis of muscle; I70.234 Atherosclerosis of native arteries of right leg with ulceration of heel and midfoot; T81.31XA Disruption of external operation (surgical) wound, not elsewhere classified, initial encounter; E11.65 Type 2 diabetes mellitus with hyperglycemia; E11.52 Type 2 diabetes mellitus with diabetic peripheral angiopathy with gangrene; M86.071 Acute hematogenous osteomyelitis, right ankle and foot; D50.8 Other iron deficiency anemias; R23.1 Pallor | CPT/HCPCS: 11042; 97605; A6207; G0463 ==

== ENCOUNTER → 2021-12-04 | Outpatient (CLI) | payer MEDICARE, OTHER | LOC: WOUNDCARE 09:57 | PROVIDERS: ATTEND Family Medicine | DX: E11.621 Type 2 diabetes mellitus with foot ulcer (principal); I70.234 Atherosclerosis of native arteries of right leg with ulceration of heel and midfoot; T81.31XA Disruption of external operation (surgical) wound, not elsewhere classified, initial encounter; E11.65 Type 2 diabetes mellitus with hyperglycemia; M86.071 Acute hematogenous osteomyelitis, right ankle and foot; L97.513 Non-pressure chronic ulcer of other part of right foot with necrosis of muscle; D50.8 Other iron deficiency anemias; E11.52 Type 2 diabetes mellitus with diabetic peripheral angiopathy with gangrene | CPT/HCPCS: 11042; 97605; A6207; G0463 ==

== ENCOUNTER → 2021-12-05 | Outpatient (CLI) | payer MEDICARE, OTHER | LOC: LAB 12:33 | PROVIDERS: ATTEND Nurse Practitioner Family | DX: E11.621 Type 2 diabetes mellitus with foot ulcer (principal) | CPT/HCPCS: 36415; 85652; 86141 ==

== ENCOUNTER → 2021-12-11 | Outpatient (CLI) | payer MEDICARE, OTHER | LOC: WOUNDCARE 10:04 | PROVIDERS: ATTEND Family Medicine | DX: E11.621 Type 2 diabetes mellitus with foot ulcer (principal); I70.234 Atherosclerosis of native arteries of right leg with ulceration of heel and midfoot; T81.31XA Disruption of external operation (surgical) wound, not elsewhere classified, initial encounter; L97.513 Non-pressure chronic ulcer of other part of right foot with necrosis of muscle; E11.65 Type 2 diabetes mellitus with hyperglycemia; M86.071 Acute hematogenous osteomyelitis, right ankle and foot; D50.8 Other iron deficiency anemias; E11.52 Type 2 diabetes mellitus with diabetic peripheral angiopathy with gangrene | CPT/HCPCS: 11042; 97605; A6207; G0463 ==

== ENCOUNTER → 2021-12-18 | Outpatient (CLI) | payer MEDICARE, OTHER | LOC: WOUNDCARE 09:54 | PROVIDERS: ATTEND Family Medicine | DX: E11.621 Type 2 diabetes mellitus with foot ulcer (principal); L97.513 Non-pressure chronic ulcer of other part of right foot with necrosis of muscle; I70.234 Atherosclerosis of native arteries of right leg with ulceration of heel and midfoot; T81.31XA Disruption of external operation (surgical) wound, not elsewhere classified, initial encounter; E11.65 Type 2 diabetes mellitus with hyperglycemia; M86.071 Acute hematogenous osteomyelitis, right ankle and foot; D50.9 Iron deficiency anemia, unspecified; L97.102 Non-pressure chronic ulcer of unspecified thigh with fat layer exposed; I96 Gangrene, not elsewhere classified | CPT/HCPCS: 11042; 97605; A6207; A6212; G0463 ==

== ENCOUNTER 2021-12-25 12:29 | Outpatient (RCR) | payer MEDICARE, OTHER ==
[2021-12-25 12:48] LABS: BASOPHILS # (AUTO) 0.1 10^3/uL (0.0-0.1); BASOPHILS % (AUTO) 1 % (0-10); EOSINOPHILS # (AUTO) 0.1 10^3/uL (0.0-0.3); EOSINOPHILS % (AUTO) 1 % (0-10); HEMATOCRIT 39 % (35-52); HEMOGLOBIN 12.9 g/dL (11.5-16.0); LYMPHOCYTES # (AUTO) 1.4 10^3/uL (1.0-4.0); LYMPHOCYTES % (AUTO) 16 % (12-44); MEAN CORPUSCULAR HEMOGLOBIN 31 pg (25-34); MEAN CORPUSCULAR HGB CONC 33 g/dL (32-36); MEAN CORPUSCULAR VOLUME 94 fL (80-99); MEAN PLATELET VOLUME 9.6 fL (9.0-12.2); MONOCYTES # (AUTO) 0.8 10^3/uL (0.0-1.0); MONOCYTES % (AUTO) 8 % (0-12); NEUTROPHILS # (AUTO) 6.6 10^3/uL (1.8-7.8); NEUTROPHILS % (AUTO) 74 % (42-75); PLATELET COUNT 190 10^3/uL (130-400); WHITE BLOOD COUNT 8.9 10^3/uL (4.3-11.0)
[2021-12-25 13:07] LABS: ALBUMIN 3.8 GM/DL (3.2-4.5); BILIRUBIN,TOTAL 0.5 MG/DL (0.1-1.0); CALCIUM 9.3 MG/DL (8.5-10.1); POTASSIUM 3.8 MMOL/L (3.6-5.0); TOTAL PROTEIN 7.2 GM/DL (6.4-8.2)
== END 2022-01-11 | disposition home or self-care (01) ==
LOC: ONC 12:29
PROVIDERS: ATTEND Internal Medicine Hematology & Oncology
DX: D50.9 Iron deficiency anemia, unspecified (principal); I73.9 Peripheral vascular disease, unspecified; I25.10 Atherosclerotic heart disease of native coronary artery without angina pectoris; I65.23 Occlusion and stenosis of bilateral carotid arteries; E11.9 Type 2 diabetes mellitus without complications; E78.5 Hyperlipidemia, unspecified; I10 Essential (primary) hypertension; E66.9 Obesity, unspecified; Z98.890 Other specified postprocedural states
CPT/HCPCS: 80053; 82728; 83540; 83550; 85025; G0463; 36415; 99213

== ENCOUNTER → 2021-12-25 | Outpatient (CLI) | payer MEDICARE, OTHER | LOC: WOUNDCARE 10:02 | PROVIDERS: ATTEND Family Medicine | DX: E11.621 Type 2 diabetes mellitus with foot ulcer (principal); I70.234 Atherosclerosis of native arteries of right leg with ulceration of heel and midfoot; T81.31XA Disruption of external operation (surgical) wound, not elsewhere classified, initial encounter; E11.65 Type 2 diabetes mellitus with hyperglycemia; M86.071 Acute hematogenous osteomyelitis, right ankle and foot; L97.512 Non-pressure chronic ulcer of other part of right foot with fat layer exposed; L97.513 Non-pressure chronic ulcer of other part of right foot with necrosis of muscle; D50.8 Other iron deficiency anemias; L03.115 Cellulitis of right lower limb; E11.52 Type 2 diabetes mellitus with diabetic peripheral angiopathy with gangrene | CPT/HCPCS: 11042; A6207; G0463 ==

== ENCOUNTER → 2022-01-01 | Outpatient (CLI) | payer MEDICARE, OTHER | LOC: WOUNDCARE 09:54 | PROVIDERS: ATTEND Family Medicine | DX: E11.621 Type 2 diabetes mellitus with foot ulcer (principal); L97.513 Non-pressure chronic ulcer of other part of right foot with necrosis of muscle; I70.234 Atherosclerosis of native arteries of right leg with ulceration of heel and midfoot; T81.31XA Disruption of external operation (surgical) wound, not elsewhere classified, initial encounter; E11.65 Type 2 diabetes mellitus with hyperglycemia; M86.071 Acute hematogenous osteomyelitis, right ankle and foot; E11.52 Type 2 diabetes mellitus with diabetic peripheral angiopathy with gangrene | CPT/HCPCS: 11042; 97605 ==

== ENCOUNTER → 2022-01-08 | Outpatient (CLI) | payer MEDICARE, OTHER | LOC: WOUNDCARE 09:48 | PROVIDERS: ATTEND Family Medicine | DX: E11.621 Type 2 diabetes mellitus with foot ulcer (principal); L97.513 Non-pressure chronic ulcer of other part of right foot with necrosis of muscle; I70.234 Atherosclerosis of native arteries of right leg with ulceration of heel and midfoot; T81.31XA Disruption of external operation (surgical) wound, not elsewhere classified, initial encounter; E11.65 Type 2 diabetes mellitus with hyperglycemia; M86.072 Acute hematogenous osteomyelitis, left ankle and foot; I96 Gangrene, not elsewhere classified | CPT/HCPCS: 11042; 11046; A6207; G0463; 97605 ==

== ENCOUNTER → 2022-01-15 | Outpatient (CLI) | payer MEDICARE, OTHER ==
[2022-01-15 11:32] LABS: CALCIUM 9.7 MG/DL (8.5-10.1); CREATININE SERUM 0.85 MG/DL (0.60-1.30); POTASSIUM 3.6 MMOL/L (3.6-5.0)
== END ==
LOC: LAB 10:58
PROVIDERS: ATTEND Family Medicine
DX: E11.621 Type 2 diabetes mellitus with foot ulcer (principal); I70.234 Atherosclerosis of native arteries of right leg with ulceration of heel and midfoot; T81.31XA Disruption of external operation (surgical) wound, not elsewhere classified, initial encounter; E11.65 Type 2 diabetes mellitus with hyperglycemia; M86.071 Acute hematogenous osteomyelitis, right ankle and foot; L97.513 Non-pressure chronic ulcer of other part of right foot with necrosis of muscle; B37.2 Candidiasis of skin and nail; E55.9 Vitamin D deficiency, unspecified
CPT/HCPCS: 36415; 80048; 82306; 84134

== ENCOUNTER → 2022-01-15 | Outpatient (CLI) | payer MEDICARE, OTHER | LOC: WOUNDCARE 09:54 | PROVIDERS: ATTEND Family Medicine | DX: E11.621 Type 2 diabetes mellitus with foot ulcer (principal); I70.234 Atherosclerosis of native arteries of right leg with ulceration of heel and midfoot; T81.31XA Disruption of external operation (surgical) wound, not elsewhere classified, initial encounter; E11.52 Type 2 diabetes mellitus with diabetic peripheral angiopathy with gangrene; E11.65 Type 2 diabetes mellitus with hyperglycemia; L97.513 Non-pressure chronic ulcer of other part of right foot with necrosis of muscle; M86.071 Acute hematogenous osteomyelitis, right ankle and foot; B37.2 Candidiasis of skin and nail | CPT/HCPCS: 15275; 97605; G0463 ==

== ENCOUNTER → 2022-01-22 | Outpatient (CLI) | payer MEDICARE, OTHER | LOC: WOUNDCARE 09:52 | PROVIDERS: ATTEND Family Medicine | DX: E11.621 Type 2 diabetes mellitus with foot ulcer (principal); T81.31XA Disruption of external operation (surgical) wound, not elsewhere classified, initial encounter; E11.65 Type 2 diabetes mellitus with hyperglycemia; E55.9 Vitamin D deficiency, unspecified; E11.52 Type 2 diabetes mellitus with diabetic peripheral angiopathy with gangrene; I96 Gangrene, not elsewhere classified; I70.234 Atherosclerosis of native arteries of right leg with ulceration of heel and midfoot; L97.513 Non-pressure chronic ulcer of other part of right foot with necrosis of muscle; M86.071 Acute hematogenous osteomyelitis, right ankle and foot | CPT/HCPCS: 15275; 97605; G0463 ==

== ENCOUNTER → 2022-01-29 | Outpatient (CLI) | payer MEDICARE, OTHER | LOC: WOUNDCARE 09:56 | PROVIDERS: ATTEND Family Medicine | DX: E11.621 Type 2 diabetes mellitus with foot ulcer (principal); I70.234 Atherosclerosis of native arteries of right leg with ulceration of heel and midfoot; T81.31XA Disruption of external operation (surgical) wound, not elsewhere classified, initial encounter; L97.513 Non-pressure chronic ulcer of other part of right foot with necrosis of muscle; E11.65 Type 2 diabetes mellitus with hyperglycemia; M86.071 Acute hematogenous osteomyelitis, right ankle and foot; E55.9 Vitamin D deficiency, unspecified; E11.52 Type 2 diabetes mellitus with diabetic peripheral angiopathy with gangrene; I96 Gangrene, not elsewhere classified | CPT/HCPCS: 11042; A6197; G0463 ==

== ENCOUNTER → 2022-02-05 | Outpatient (CLI) | payer MEDICARE, OTHER | LOC: WOUNDCARE 09:54 | PROVIDERS: ATTEND Family Medicine | DX: E11.621 Type 2 diabetes mellitus with foot ulcer (principal); I70.234 Atherosclerosis of native arteries of right leg with ulceration of heel and midfoot; T81.31XA Disruption of external operation (surgical) wound, not elsewhere classified, initial encounter; E11.65 Type 2 diabetes mellitus with hyperglycemia; L97.513 Non-pressure chronic ulcer of other part of right foot with necrosis of muscle; M86.071 Acute hematogenous osteomyelitis, right ankle and foot; E55.9 Vitamin D deficiency, unspecified; E11.52 Type 2 diabetes mellitus with diabetic peripheral angiopathy with gangrene; I96 Gangrene, not elsewhere classified | CPT/HCPCS: 11042; G0463 ==

== ENCOUNTER → 2022-02-12 | Outpatient (CLI) | payer MEDICARE, OTHER | LOC: WOUNDCARE 10:00 | PROVIDERS: ATTEND Family Medicine | DX: E11.621 Type 2 diabetes mellitus with foot ulcer (principal); I70.234 Atherosclerosis of native arteries of right leg with ulceration of heel and midfoot; T81.31XA Disruption of external operation (surgical) wound, not elsewhere classified, initial encounter; E11.65 Type 2 diabetes mellitus with hyperglycemia; M86.071 Acute hematogenous osteomyelitis, right ankle and foot; L97.513 Non-pressure chronic ulcer of other part of right foot with necrosis of muscle; E55.9 Vitamin D deficiency, unspecified; E11.52 Type 2 diabetes mellitus with diabetic peripheral angiopathy with gangrene | CPT/HCPCS: 11042; G0463 ==

== ENCOUNTER → 2022-02-19 | Outpatient (CLI) | payer MEDICARE, OTHER | LOC: WOUNDCARE 09:52 | PROVIDERS: ATTEND Family Medicine | DX: E11.621 Type 2 diabetes mellitus with foot ulcer (principal); L97.513 Non-pressure chronic ulcer of other part of right foot with necrosis of muscle; I70.234 Atherosclerosis of native arteries of right leg with ulceration of heel and midfoot; T81.31XA Disruption of external operation (surgical) wound, not elsewhere classified, initial encounter; E11.65 Type 2 diabetes mellitus with hyperglycemia; M86.071 Acute hematogenous osteomyelitis, right ankle and foot; E55.9 Vitamin D deficiency, unspecified; I96 Gangrene, not elsewhere classified; E11.52 Type 2 diabetes mellitus with diabetic peripheral angiopathy with gangrene | CPT/HCPCS: 11042; G0463 ==

== ENCOUNTER → 2022-02-26 | Outpatient (CLI) | payer MEDICARE, OTHER | LOC: WOUNDCARE 09:54 | PROVIDERS: ATTEND Family Medicine | DX: L97.513 Non-pressure chronic ulcer of other part of right foot with necrosis of muscle (principal); E11.621 Type 2 diabetes mellitus with foot ulcer; T81.31XA Disruption of external operation (surgical) wound, not elsewhere classified, initial encounter; I70.234 Atherosclerosis of native arteries of right leg with ulceration of heel and midfoot; E11.65 Type 2 diabetes mellitus with hyperglycemia; E55.9 Vitamin D deficiency, unspecified; E11.69 Type 2 diabetes mellitus with other specified complication; M86.071 Acute hematogenous osteomyelitis, right ankle and foot; E11.52 Type 2 diabetes mellitus with diabetic peripheral angiopathy with gangrene; I96 Gangrene, not elsewhere classified | CPT/HCPCS: 11042; G0463 ==

== ENCOUNTER → 2022-03-05 | Outpatient (CLI) | payer MEDICARE, OTHER | LOC: WOUNDCARE 09:47 | PROVIDERS: ATTEND Family Medicine | DX: E11.621 Type 2 diabetes mellitus with foot ulcer (principal); I70.234 Atherosclerosis of native arteries of right leg with ulceration of heel and midfoot; T81.31XA Disruption of external operation (surgical) wound, not elsewhere classified, initial encounter; E11.65 Type 2 diabetes mellitus with hyperglycemia; M86.071 Acute hematogenous osteomyelitis, right ankle and foot; L97.513 Non-pressure chronic ulcer of other part of right foot with necrosis of muscle; E55.9 Vitamin D deficiency, unspecified | CPT/HCPCS: 11042; G0463 ==

== ENCOUNTER 2022-03-08 10:37 | Emergency (ER) | payer MEDICARE, OTHER ==
[2022-03-08] MEDS ORDERED: NS IV 1000 ML 1,000 ML IV STA (11:53)
--- NOTE | 2022-03-08 11:57 | ED GI ---
General Chief Complaint: Abdominal/GI Problems Stated Complaint: ABD PAIN Nursing Triage Note: PT AMB TO FT 3 WITH C/O LLQ FOR ABOUT A MONTH. PT SAW PCP EARLIER THIS WEEK AND WAS TOLD TO TAKE MAG CITRATE. THAT GAVE HER DIARRHIA BUT THE PAIN DID NOT GO AWAY Source of Information: Patient Exam Limitations: No Limitations History of Present Illness Date Seen by Provider: Mar 08, 2022 Time Seen by Provider: 11:55 Initial Comments This is a 66-year-old female that presents to the emergency room for evaluation of left-sided abdominal pain. She has had symptoms for approximately 3 weeks and saw her primary care doctor earlier this week and was started on magnesium citrate. However, she states that it caused her to have diarrhea but her pain has gotten worse. Severity/Quality: Severe Location: LUQ, LLQ Radiation: No Radiation Modifying Factors: Worsens With Analgesics, Worsens With Antacids Associated Symptoms: No Back Pain, No Chest Pain, No Diaphoresis, No Fe fabiola/Chills Allergies and Home Medications Allergies Coded Allergies: No Known Drug Allergies (Unverified , 10/28/21) Patient Home Medication List Home Medication List Reviewed: Yes Ascorbic Acid (Vitamin C) 500 Mg Tablet, 500 MG PO 1200, (Reported) Entered as Reported by: DAPHNEY SHIRLEY on 10/01/21 1150 Aspirin (Aspirin) 81 Mg Tab.chew, 81 MG PO DAILY, (Reported) Entered as Reported by: AMY TODD on 04/27/18 1329 Cholecalciferol (Vitamin D3) (Vitamin D3) 50 Mcg Capsule, 50 MCG PO 1200, (Reported) Entered as Reported by: DAPHNEY SHIRLEY on 10/01/21 1150 Docusate Sodium (Stool Softener) 100 Mg Capsule, 200 MG PO DAILY, (Reported) Entered as Reported by: DAPHNEY SHIRLEY on 09/06/20 1002 Gabapentin (Neurontin) 300 Mg Capsule, 900 MG PO TID, (Reported) Entered as Reported by: ANIYA ISABEL on 04/02/20 1448 Hydralazine HCl (Hydralazine HCl) 50 Mg Tablet, 50 MG PO TID, (Reported) Entered as Reported by: ANASTASIIA SMITH on 02/04/18 1521 Insulin Aspart (Novolog Flexpen) 300 Units/3 Ml Solution, 3 UNITS SQ TIDWM Prescribed by: CARMEN NORRIS on 11/01/21 0611 Insulin Detemir (Levemir Flextouch) 100 Unit/1 Ml Insuln.pen, 5 UNIT SQ HS Prescribed by: CARMEN NORRIS on 11/01/21 0611 Lactobacillus Acidophilus (Probiotic) 1 Each Capsule, 2 EACH PO DAILY, (Rep orted) Entered as Reported by: VALERIA FAJARDO on 10/03/21 0943 Liraglutide (Victoza 3-Rigo) 0.6 Mg/0.1 Ml Pen.injctr, 1.8 MG SQ HS, (Reported) Entered as Reported by: DAPHNEY SHIRLEY on 11/27/20 0958 Losartan Potassium (Losartan Potassium) 50 Mg Tablet, 50 MG PO DAILY Prescribed by: CARMEN NORRIS on 11/01/21 0611 Metoprolol Succinate (Metoprolol Succinate) 200 Mg Tab.er.24h, 200 MG PO DAILY, (Reported) Entered as Reported by: ANASTASIIA SMITH on 02/04/18 1521 Pantoprazole Sodium (Pantoprazole Sodium) 20 Mg Tablet.dr, 20 MG PO DAILY, (Reported) Entered as Reported by: AMY TODD on 08/16/19 1445 Sucralfate (Sucralfate) 1 Gm Tablet, 1 GM PO ACHS Prescribed by: CARMEN NORRIS on 11/01/21 0611 Sulfamethoxazole/Trimethoprim (Bactrim Ds Tablet) 1 Each Tablet, 1 EACH PO BID Prescribed by: DINORA LEAHY on 11/04/212036 Zinc Sulfate (Zinc) 50 Mg Tablet, 50 MG PO 1200, (Reported) Entered as Reported by: DAPHNEY SHIRLEY on 10/01/21 1150 Review of Systems Review of Systems Constitutional: no symptoms reported EENTM: No Symptoms Reported Respiratory: No Symptoms Reported Cardiovascular: No Symptoms Reported Gastrointestinal: Abdomen Distended, Abdominal Pain Genitourinary: No Symptoms Reported Musculoskeletal: no symptoms reported Past Edxgvxi-Avczmb-Hqtgdn Hx Patient Social History Tobacco Use?: No Use of E-Cig and/or Vaping dev: No Substance use?: No Alcohol Use?: No Pt feels they are or have been: No Immunizations Up To Date Tetanus Booster (TDap): Unknown PED Vaccines UTD: No First/Initial COVID19 Vaccinat: none Second COVID19 Vaccination Ramesh: none Third COVID19 Vaccination Date: none Seasonal Allergies Seasonal Allergies: No Past Medical History Surgery/Hospitalization HX: FIVE STENTS PLACED APPROX. 2017 RIGHT FOOT TOE AMPUTATION 05/2021 TUBAL 1984 GALLBLADDER REMOVAL 07/2021 HTN, DM, PVD Surgeries: Yes (R foot transmetatarsal amputation, vein surgery) Amputation, Coronary Stent, Tubal Ligation, Vascular Surgery Respiratory: No Currently Using CPAP: No Currently Using BIPAP: No Cardiac: Yes (STENTS x5) Coronary Artery Disease Neurological: Yes Neuropathy 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 Disorders: No Female 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 Disorders: Denies [employer]ENCE IN[employer]ER [employer] History: Menopausal Sexually Transmitted Disease: No HIV/AIDS: No Genitourinary: Yes UTI-Chronic Gastrointestinal: Yes Gall Bladder Disease Musculoskeletal: Yes Amputee, Fibromyalgia Endocrine: Yes Diabetes, Insulin dep HEENT: No (GLASSES) Loss of Vision: Denies Hearing Impairment: Denies Cancer: No Psychosocial: No Integumentary: Yes (diabetic ulcer right foot) Blood Disorders: No Adverse Reaction/Blood Tranf: No (N/A) Family Medical History Cardiovascular disease 19 MOTHER, G8 BROTHER G8 BROTHER Completed stroke 19 MOTHER, Diabetes mellitus 19 FATHER, 19 MOTHER, G8 BROTHER G8 SISTER FH: brain tumor FH: breast cancer 19 MOTHER, FH: lung cancer FHx: peripheral neuropathy Hypertension 19 FATHER, Lung c 19 FATHER, Myocardial infarction 19 MOTHER, Neuro No Pertinent Family Hx Physical Exam Vital Signs Vital Signs - First Documented 03/08/22 11:12 Pulse 81 Resp 16 B/P (MAP) 183/88 (119) Capillary Refill : Height/Weight/BMI Height: 5'5.50" Weight: 195lbs. 0.0oz. 88.278338lr; 34.00 BMI Method:Stated General Appearance: WD/WN, no apparent distress HEENT: PERRL/EOMI, normal ENT inspection Neck: non-tender, full range of motion, supple Respiratory: chest non-tender, lungs clear Cardiovascular: regular rate, rhythm Gastrointestinal: normal bowel sounds, soft, tenderness (Tenderness to palpation along the left lateral abdomen without rebound or guarding) Extremities: non-tender, normal inspection Back: normal inspection Neurologic/Psychiatric: twister doffer II-XII nml as tested, oriented x 3 Skin: normal color Progress/Results/Core Measures Results/Orders Lab Results Laboratory Tests Test 03/08/22 11:57 03/08/22 12:35 Range/Units White Blood Count 7.7 4.3-11.0 10^3/uL Red Blood Count 4.34 3.80-5.11 10^6/uL Hemoglobin 13.1 11.5-16.0 g/dL Hematocrit 40 35-52 % Mean Corpuscular Volume 92 80-99 fL Mean Corpuscular Hemoglobin 30 25-34 pg Mean Corpuscular Hemoglobin Concent 33 32-36 g/dL Red Cell Distribution Width 13.2 10.0-14.5 % Platelet Count 190 130-400 10^3/uL Mean Platelet Volume 9.3 9.0-12.2 fL Immature Granulocyte % (Auto) 1 % Neutrophils (%) (Auto) 63 42-75 % Lymphocytes (%) (Auto) 26 12-44 % Monocytes (%) (Auto) 8 0-12 % Eosinophils (%) (Auto) 1 0-10 % Basophils (%) (Auto) 1 0-10 % Neutrophils # (Auto) 4.9 1.8-7.8 10^3/uL Lymphocytes # (Auto) 2.0 1.0-4.0 10^3/uL Monocytes # (Auto) 0.6 0.0-1.0 10^3/uL Eosinophils # (Auto) 0.1 0.0-0.3 10^3/uL Basophils # (Auto) 0.1 0.0-0.1 10^3/uL Immature Granulocyte # (Auto) 0.1 0.0-0.1 10^3/uL Sodium Level 136 135-145 MMOL/L Potassium Level 4.2 3.6-5.0 MMOL/L Chloride Level 98 98-107 MMOL/L Carbon Dioxide Level 26 21-32 MMOL/L Anion Gap 12 5-14 MMOL/L Blood Urea Nitrogen 20 H 7-18 MG/DL Creatinine 0.94 0.60-1.30 MG/DL Estimat Glomerular Filtration Rate 67 BUN/Creatinine Ratio 21 Glucose Level 143 H 70-105 MG/DL Calcium Level 9.2 8.5-10.1 MG/DL Corrected Calcium 9.4 8.5-10.1 MG/DL Total Bilirubin 0.4 0.1-1.0 MG/DL Aspartate Amino Transf (AST/SGOT) 18 5-34 U/L Alanine Aminotransferase (ALT/SGPT) 28 0-55 U/L Alkaline Phosphatase 86 40-136 U/L C-Reactive Protein High Sensitivity 0.94 H 0.00-0.50 MG/DL Total Protein 7.3 6.4-8.2 GM/DL Albumin 3.8 3.2-4.5 GM/DL Lipase 38 8-78 U/L Urine Color YELLOW Urine Clarity CLEAR Urine pH 7.0 5-9 Urine Specific [place] 1.010 L 1.016-1.022 Urine Protein 1+ H NEGATIVE Urine Glucose (UA) NEGATIVE NEGATIVE Urine Ketones NEGATIVE NEGATIVE Urine Nitrite NEGATIVE NEGATIVE Urine Bilirubin NEGATIVE NEGATIVE Urine Urobilinogen 0.2 < = 1.0 MG/DL Urine Leukocyte Esterase NEGATIVE NEGATIVE Urine RBC (Auto) NEGATIVE NEGATIVE Urine RBC NONE /HPF Urine WBC NONE /HPF Urine Squamous Epithelial Cells 5-10 /HPF Urine Crystals NONE /LPF Urine Bacteria NEGATIVE /HPF Urine Casts NONE /LPF Urine Mucus NEGATIVE /LPF Urine Culture Indicated NO My Orders Orders - ONELIA SHANKS Ns Iv 1000 Ml (Sodium Chloride 0.9%) (03/08/22 11:53) Ct Abdomen/Pelvis W (03/08/22 11:53) Iohexol Injection (Omnipaque 350 Mg/Ml 1 (03/08/22 12:15) Received Contrast (Hold Metformin- Contr (03/08/22 12:15) Ns (Ivpb) (Sodium Chloride 0.9% Ivpb Bag (03/08/22 12:15) Medications Given in ED Current Medications Medications Dose Ordered Sig/[place] Route Start Time Stop Time Status Last Admin Dose Admin Iohexol 100 ml ONCE ONCE IV 03/08/22 12:15 03/08/22 12:16 DC 03/08/22 12:06 100 ML Sodium Chloride 100 ml ONCE ONCE IV 03/08/22 12:15 03/08/22 12:16 DC 03/08/22 12:06 100 ML Vital Signs/I&O 03/08/22 11:12 Pulse 81 Resp 16 B/P (MAP) 183/88 (119) Blood Pressure Mean: 119 Departure Communication (Admissions) Patient is afebrile, nontoxic and in no distress. Her abdomen has mild tenderness on left side with no rebound or guarding. CT of the abdomen pelvis does not show any acute pathology. Lab work is reassuring. We will treat the patient symptomatically and I recommended close follow-up with her primary care. She is in agreement with care plan. Impression Primary Impression: Abdominal pain Disposition: HOME, SELF-CARE Condition: Stable Departure-Patient Inst. Decision time for Depature: 13:02 Referrals: [facility] (PCP/Family) Primary Care Physician Patient Instructions: Acute Pain, Adult Add. Discharge Instructions: Please follow-up very closely with your primary care doctor as we discussed. If your symptoms progress or worsen. I would like you to return to the emergency room for reevaluation. All discharge instructions reviewed with patient and/or family. Voiced understanding. Scripts Dicyclomine HCl (Dicyclomine HCl) 20 Mg Tablet 20 MG PO BID for Abdominal Pain, #30 TAB Prov: ONELIA SHANKS 03/08/22 ONELIA SHANKS Mar 08, 2022 11:57
[2022-03-08 12:09] LABS: BASOPHILS # (AUTO) 0.1 10^3/uL (0.0-0.1); BASOPHILS % (AUTO) 1 % (0-10); EOSINOPHILS # (AUTO) 0.1 10^3/uL (0.0-0.3); EOSINOPHILS % (AUTO) 1 % (0-10); HEMATOCRIT 40 % (35-52); HEMOGLOBIN 13.1 g/dL (11.5-16.0); LYMPHOCYTES % (AUTO) 26 % (12-44); MEAN CORPUSCULAR HEMOGLOBIN 30 pg (25-34); MEAN CORPUSCULAR HGB CONC 33 g/dL (32-36); MEAN CORPUSCULAR VOLUME 92 fL (80-99); MEAN PLATELET VOLUME 9.3 fL (9.0-12.2); MONOCYTES # (AUTO) 0.6 10^3/uL (0.0-1.0); MONOCYTES % (AUTO) 8 % (0-12); NEUTROPHILS # (AUTO) 4.9 10^3/uL (1.8-7.8); NEUTROPHILS % (AUTO) 63 % (42-75); PLATELET COUNT 190 10^3/uL (130-400); WHITE BLOOD COUNT 7.7 10^3/uL (4.3-11.0)
[2022-03-08] MEDS ORDERED: NS 100 ML (IVPB) BAG IV ONE (12:15)
[2022-03-08] MEDS ORDERED: HOLD METFORMIN - RECEIVED CONTRAST 20 ML VIAL IV SCH (12:15)
[2022-03-08] MEDS ORDERED: IOHEXOL 350 MG/ML 100 ML (OMNIPAQUE 350) VIAL IV ONE (12:15)
[2022-03-08 12:18] LABS: ALBUMIN 3.8 GM/DL (3.2-4.5); POTASSIUM 4.2 MMOL/L (3.6-5.0)
[2022-03-08 12:19] LABS: CALCIUM 9.2 MG/DL (8.5-10.1)
[2022-03-08 12:21] LABS: TOTAL PROTEIN 7.3 GM/DL (6.4-8.2)
[2022-03-08 12:22] LABS: BILIRUBIN,TOTAL 0.4 MG/DL (0.1-1.0)
[2022-03-08 12:24] LABS: CREATININE SERUM 0.94 MG/DL (0.60-1.30)
--- NOTE | 2022-03-08 12:40 | Diagnostic Imaging Report ---
PROCEDURE: CT abdomen and pelvis with contrast. TECHNIQUE: Multiple contiguous axial images were obtained through the abdomen and pelvis after administration of intravenous contrast. Auto Exposure Controls were utilized during the CT exam to meet ALARA standards for radiation dose reduction. All CT scans use one or more of the following dose optimizing techniques: automated exposure control, MA and/or KvP adjustment based on patient size and exam type or iterative reconstruction. INDICATION: Left lower quadrant abdominal pain. COMPARISON: June 15, 2020. FINDINGS: The lung bases demonstrate no findings of pneumonia or edema. There is minimal basilar atelectasis. There is no effusion or pericardial collection. There are coronary calcifications as well as calcifications at the aortic valve. There is a calcified granuloma within the right hepatic lobe. There is a small hyperenhancing focus within the posterior aspect of the right hepatic lobe in subsegment 7. This most likely is reflective of a flash filling hemangioma. This is unchanged from a CTA of the chest from September 30, 2021. This also appeared to be present on a prior study from 2019. The patient is status post cholecystectomy. There is no biliary dilatation. The portal veins are patent. The pancreas demonstrates no focal abnormality. The spleen is normal in size. There is no adrenal mass. The kidneys enhance normally and are nonobstructed. The stomach is nondistended. There are no findings of abnormal small or large bowel dilation. There is no evidence of an appendicitis. The colon is decompressed. There are a few diverticula but no findings of diverticulitis. There are no findings of free air, free fluid, or abscess. The bladder is nondistended. The uterus and adnexa are unremarkable by CT. Advanced atherosclerotic disease is present in the mesenteric vessels throughout the abdomen and pelvis. There are no findings of an acute or suspicious osseous abnormality. Degenerative endplate changes and facet arthropathy are most advanced at L5-S1. Note is made of a small fat-containing umbilical hernia. IMPRESSION: 1. No findings of bowel obstruction, diverticulitis, or appendicitis. There is moderate stool within the colon. 2. No findings of free air, free fluid, or abscess. There is no adenopathy. 3. Advanced atherosclerosis. 4. Prior cholecystectomy. 5. Right hepatic lobe hemangioma. 6. Small umbilical hernia. Dictated by: Dictated on workstation # [id number]
[2022-03-08 12:45] LABS: BILIRUBIN,URINE NEGATIVE (NEGATIVE); CLARITY,URINE CLEAR; COLOR,URINE YELLOW; GLUCOSE, URINE (UA) NEGATIVE (NEGATIVE); KETONES,URINE NEGATIVE (NEGATIVE); LEUKOCYTE ESTERASE ,URINE NEGATIVE (NEGATIVE); NITRITE,URINE NEGATIVE (NEGATIVE); PROTEIN,URINE 1+ (NEGATIVE)
[2022-03-08 12:52] LABS: BACTERIA,URINE NEGATIVE /HPF
[2022-03-08] MEDS ORDERED: DICY20TA PO (13:05)
[2022-03-08 13:36] VITALS: BP 175/82
== END 2022-03-08 13:38 | disposition home or self-care (01) ==
LOC: EDUNIT# 10:37 → ER 10:38
DX: R10.32 Left lower quadrant pain (principal); R10.12 Left upper quadrant pain; E11.9 Type 2 diabetes mellitus without complications; Z79.4 Long term (current) use of insulin; Z28.310 Unvaccinated for COVID-19
CPT/HCPCS: 36415; 74177; 80053; 81000; 83690; 85025; 86141

== ENCOUNTER → 2022-03-12 | Outpatient (CLI) | payer MEDICARE, OTHER | LOC: WOUNDCARE 09:53 | PROVIDERS: ATTEND Family Medicine | DX: E11.621 Type 2 diabetes mellitus with foot ulcer (principal); I70.234 Atherosclerosis of native arteries of right leg with ulceration of heel and midfoot; T81.31XA Disruption of external operation (surgical) wound, not elsewhere classified, initial encounter; E11.65 Type 2 diabetes mellitus with hyperglycemia; M86.071 Acute hematogenous osteomyelitis, right ankle and foot; L97.513 Non-pressure chronic ulcer of other part of right foot with necrosis of muscle; E55.9 Vitamin D deficiency, unspecified | CPT/HCPCS: 99212 ==

== ENCOUNTER → 2022-03-19 | Outpatient (CLI) | payer MEDICARE, OTHER ==
--- NOTE | 2022-03-19 15:59 | Diagnostic Imaging Report ---
INDICATION: Routine screening. COMPARISON: 02/22/2019 and 05/19/2017. TECHNIQUE: 2D and 3D bilateral screening mammography was performed with CAD. FINDINGS: Both breasts are heterogeneously dense, limiting the sensitivity of mammography. There are scattered benign calcifications in both breasts. No spiculated mass or malignant-appearing microcalcifications are seen. The axillae are unremarkable. IMPRESSION: No mammographic features suspicious for malignancy are identified. ACR BI-RADS Category 2: Benign findings. Result letter will be mailed to the patient. Note: At least 10% of breast cancer is not imaged by mammography. Dictated by: Dictated on workstation # [id number]
== END ==
LOC: RAD 09:42
PROVIDERS: ATTEND Pediatrics
DX: Z12.31 Encounter for screening mammogram for malignant neoplasm of breast (principal)
CPT/HCPCS: 77063; 77067

== ENCOUNTER → 2022-04-01 | Outpatient (CLI) | payer MEDICARE, OTHER ==
--- NOTE | 2022-04-01 14:38 | Diagnostic Imaging Report ---
INDICATION: Postmenopausal COMPARISON: None FINDINGS: The bone marrow density of the spine and hips in the femoral necks was measured. The total T score for the spine is 2.4. Total T score for the left hip is 1.0 for the right hip 1.2. The T score for the right femoral neck is -0.6. All these findings are within normal limits. However, the T score for the left femoral neck is -1.4. This does indicate osteopenia. AP Spine L1-L4: [BMD (g/cm2): 1.494] [T-Score: 2.4] [Z-Score: 3.3] [BMD Previous: NA] [BMD % Change: NA] LT Hip Neck: [BMD (g/cm2): 0.847] [T-Score: -1.4] [Z-Score: -0.4] LT Hip Total: [BMD (g/cm2):1.138] [T-Score:1.0] [Z-Score: 1.7] [BMD Previous: NA] [BMD % Change: NA] RT Hip Neck: [BMD (g/cm2):0.961] [T-Score:-0.6] [Z-Score:0.5] RT Hip Total: [BMD (g/cm2):1.155] [T-score:1.2] [Z-Score:1.9] [BMD Previous:NA] [BMD % Change:NA] *Indicates significant change from prior examination based on 95% confidence level. World Health Organization criteria for BMD interpretation classify patients as Normal (T-score at or above -1.0), Osteopenic (T-score between -1.0 and -2.5) or Osteoporotic (T-score at or below -2.5). LIMITATIONS AND MODIFICATION: None. FRACTURE RISK (FRAX SCORE): The ten year probability of (%): Major Osteoporotic Fracture: [NA] Hip Fracture: [NA] IMPRESSION: 1. The bone density of the spine, the hips and the right femoral neck is within normal limits. However there is osteopenia of the left femoral neck. 2. 3. See below National Osteoporosis Foundation guidelines on when to potentially initiate pharmacologic therapy. Based on the National Osteoporosis Foundation Guidelines, pharmacologic treatment should be initiated in any of the following, unless clinical conditions suggest otherwise: * Any patient with prior fragility fracture of the hip or vertebrae. A spine fracture indicates 5X risk for subsequent spine fracture and 2X risk for subsequent hip fracture. * Osteoporosis (T-score <-2.5). * Postmenopausal women and men age 50 and older with low bone mass/osteopenia (T-score between -1.0 and -2.5) by DXA and 10-year major osteoporotic fracture greater than 20% or a 10-year probability of hip fracture greater than 3%. These fracture risks are supplied above in the FRAX score, if applicable. * Clinician judgement and/or patient preferences may indicate treatment for people with 10-year fracture probabilities above or below these levels. Dictated by: Dictated on workstation # [id number]
== END ==
LOC: RAD 09:30
PROVIDERS: ATTEND Pediatrics
DX: M85.88 Other specified disorders of bone density and structure, other site (principal); Z78.0 Asymptomatic menopausal state
CPT/HCPCS: 77080

== ENCOUNTER → 2022-04-17 | Outpatient (CLI) | payer MEDICARE, OTHER | LOC: WOUNDCARE 12:00 | PROVIDERS: ATTEND Family Medicine | DX: L97.512 Non-pressure chronic ulcer of other part of right foot with fat layer exposed (principal); E11.621 Type 2 diabetes mellitus with foot ulcer; E11.65 Type 2 diabetes mellitus with hyperglycemia; E11.40 Type 2 diabetes mellitus with diabetic neuropathy, unspecified; E66.01 Morbid (severe) obesity due to excess calories; I70.235 Atherosclerosis of native arteries of right leg with ulceration of other part of foot | CPT/HCPCS: 11042; A6197; G0463 ==

== ENCOUNTER → 2022-04-23 | Outpatient (CLI) | payer MEDICARE, OTHER ==
[~2022-04-23] MED LIST changes: +LOSA100T57 PO
== END ==
LOC: WOUNDCARE 09:48
PROVIDERS: ATTEND Family Medicine
DX: E11.621 Type 2 diabetes mellitus with foot ulcer (principal); L97.512 Non-pressure chronic ulcer of other part of right foot with fat layer exposed; E11.52 Type 2 diabetes mellitus with diabetic peripheral angiopathy with gangrene; I96 Gangrene, not elsewhere classified; E11.65 Type 2 diabetes mellitus with hyperglycemia; E11.40 Type 2 diabetes mellitus with diabetic neuropathy, unspecified; E66.01 Morbid (severe) obesity due to excess calories; I70.235 Atherosclerosis of native arteries of right leg with ulceration of other part of foot; Z68.31 Body mass index [BMI] 31.0-31.9, adult
CPT/HCPCS: 11042; G0463

== ENCOUNTER 2022-04-25 12:28 | Outpatient (CLI) | payer MEDICARE, OTHER ==
[~2022-04-25] VITALS: Ht 165.1 cm; Wt 88.0 kg
[~2022-04-25 12:28] MED LIST changes: -LOSA100T57 PO
[2022-04-25] MEDS ORDERED: LOSA100T57 PO (13:15)
[2022-04-25] MEDS ORDERED: CLOP75TA28 PO (13:15)
[2022-04-25] MEDS ORDERED: INSU100I29 SQ ×2 (13:15)
[2022-04-25] MEDS ORDERED: GLIM4TAB5 PO (13:15)
[2022-04-25] MEDS ORDERED: INSU100I14 SQ (13:15)
== END 2022-04-25 13:18 | disposition home or self-care (01) ==
LOC: PREOP 12:28
PROVIDERS: ATTEND Surgery
DX: Z01.818 Encounter for other preprocedural examination (principal)

== ENCOUNTER 2022-04-29 07:28 | Day surgery (SDC) | payer MEDICARE, OTHER ==
[~2022-04-29] VITALS: Ht 165.1 cm; Wt 88.0 kg
[~2022-04-29 07:28] MED LIST changes: +LOSA100T57 PO
[2022-04-29] MEDS ORDERED: LACTATED RINGERS 1,000 ML IV STA (07:37)
[2022-04-29 07:45] VITALS: BP 191/81
--- NOTE | 2022-04-29 08:22 | Progress Note-Pre Operative ---
Pre-Operative Progress Note Date of Available H&P: Apr 21, 2022 Date H&P Reviewed: Apr 29, 2022 Time H&P Reviewed: 08:22 History & Physical: H&P Reviewed, Patient Examed, No changes noted Pre-Operative Diagnosis: llq pain, change in bowel habits NIKHIL ROMERO DO Apr 29, 2022 08:22
[2022-04-29] MEDS ORDERED: proPOfol 200 MG/20 ML (DIPRIVAN) VIAL IV ONE (08:38)
--- NOTE | 2022-04-29 09:09 | Progress Note-Post Operative ---
Post-Operative Progess Note Surgeon (s)/Film Booker (s) Surgeon NIKHIL ROMERO DO Film Booker: na Pre-Operative Diagnosis llq pain, change in bowel habits Post-Operative Diagnosis minimal diverticulosis Procedure & Operative Findings Date of Procedure 04/29/22 Procedure Performed/Findings colonoscopy Anesthesia Type per occupational therapy director Estimated Blood Loss Estimated blood loss (mL): na Specimens/Packing Specimens Removed na NIKHIL ROMERO DO Apr 29, 2022 09:09
[2022-04-29 09:11] VITALS: BP 166/74
--- NOTE | 2022-04-29 09:12 | Discharge Inst-Simple/Standard ---
Discharge Inst-Standard Patient Instructions/Follow Up Plan of Care/Instructions/FU: 2 weeks [place] High fiber diet Activity as Tolerated: Yes Discharge Diet: Regular Diet (high fiber) NIKHIL ROMERO DO Apr 29, 2022 09:12
[2022-04-29 09:15] VITALS: BP 166/74
[2022-04-29 09:41] VITALS: BP 166/74
--- NOTE | 2022-04-29 13:44 | OPERATIVE REPORT ---
DATE OF SERVICE: 04/29/2022 PREOPERATIVE DIAGNOSES: Left lower quadrant abdominal pain, change in bowel habits. POSTOPERATIVE DIAGNOSIS: Minimal diverticulosis. PROCEDURE: Colonoscopy. SURGEON: Nikhil Madison DO ANESTHESIA: Per OIL PUMP STATION OPERATOR CHIEF. ESTIMATED BLOOD LOSS: None. COMPLICATIONS: None. INDICATIONS: The patient is a 67-year-old female with left lower quadrant abdominal pain. She had a change in bowel habits. She understands risks and benefits of procedure and wishes to proceed. Consent was signed in the chart. DESCRIPTION OF PROCEDURE: The patient was taken to the endoscopy suite, placed in left lateral recumbent position. Timeout was performed. Digital rectal exam was performed. No palpable polyps, masses or ulcerations. Scope was inserted in the rectum and advanced all the way to cecum with minimal difficulty. Prep was adequate. Scope was then slowly retracted back. No polyps, masses or ulcerations within the cecum, ascending, transverse, descending and sigmoid colon. In sigmoid colon, minimal diverticulosis present. Once in the rectum, scope was retroflexed noting no other pathology. Scope was returned to its normal position, slowly withdrawn until completely removed. The patient tolerated procedure well without any complications. She was taken to recovery room in stable condition. RECOMMENDATIONS: The patient will need repeat colonoscopy in 10 years unless family history of colon cancer, personal history of polyps, which would then be 5 years. If she continues to have a left lower quadrant abdominal pain, we will consider evaluation of her vascular system to the abdomen and pelvis, such as a CTA of the abdomen and pelvis or arteriogram. The patient will follow up in 2 weeks. Any issues before that be seen at that time. Due to the diverticulosis, I would also recommended high fiber diet. Job ID: [id number] DocumentID: [id number] Dictated Date: 04/29/2022 09:15:25 [place] Date: 04/29/2022 13:42:57 Dictated By: NIKHIL MADISON DO
--- NOTE | 2022-04-29 14:15 | Anesthesia-General Post-Op ---
MAC Patient Condition Mental Status/LOC: Same as Preop Cardiovascular: Satisfactory Nausea/Vomiting: Absent Respiratory: Satisfactory Pain: Controlled Complications: Absent Post Op Complications Complications None Follow Up Care/Instructions Patient Instructions None needed. Anesthesiology Discharge Order Discharge Order Patient is doing well, no complaints, stable vital signs, no apparent adverse anesthesia problems. No complications reported per nursing. MARTHA TURPIN CRNA Apr 29, 2022 14:15
== END 2022-04-29 09:50 | disposition home or self-care (01) ==
LOC: ENDO 07:28
PROVIDERS: ATTEND Surgery
DX: R19.4 Change in bowel habit (principal); R10.32 Left lower quadrant pain

== ENCOUNTER → 2022-04-30 | Outpatient (CLI) | payer MEDICARE, OTHER | LOC: WOUNDCARE 09:58 | PROVIDERS: ATTEND Family Medicine | DX: L97.512 Non-pressure chronic ulcer of other part of right foot with fat layer exposed (principal); E11.621 Type 2 diabetes mellitus with foot ulcer; E11.65 Type 2 diabetes mellitus with hyperglycemia; E11.40 Type 2 diabetes mellitus with diabetic neuropathy, unspecified; E66.01 Morbid (severe) obesity due to excess calories; I70.235 Atherosclerosis of native arteries of right leg with ulceration of other part of foot; E11.52 Type 2 diabetes mellitus with diabetic peripheral angiopathy with gangrene | CPT/HCPCS: 11042; G0463 ==

== ENCOUNTER → 2022-05-07 | Outpatient (CLI) | payer MEDICARE, OTHER | LOC: WOUNDCARE 09:51 | PROVIDERS: ATTEND Family Medicine | DX: L97.512 Non-pressure chronic ulcer of other part of right foot with fat layer exposed (principal); E11.621 Type 2 diabetes mellitus with foot ulcer; E11.65 Type 2 diabetes mellitus with hyperglycemia; E11.40 Type 2 diabetes mellitus with diabetic neuropathy, unspecified; E66.01 Morbid (severe) obesity due to excess calories; I70.235 Atherosclerosis of native arteries of right leg with ulceration of other part of foot; E11.52 Type 2 diabetes mellitus with diabetic peripheral angiopathy with gangrene | CPT/HCPCS: 11042; G0463 ==

== ENCOUNTER → 2022-05-14 | Outpatient (CLI) | payer MEDICARE, OTHER | LOC: WOUNDCARE 09:54 | PROVIDERS: ATTEND Family Medicine | DX: I96 Gangrene, not elsewhere classified (principal); L97.512 Non-pressure chronic ulcer of other part of right foot with fat layer exposed; E11.52 Type 2 diabetes mellitus with diabetic peripheral angiopathy with gangrene; E11.621 Type 2 diabetes mellitus with foot ulcer; E11.65 Type 2 diabetes mellitus with hyperglycemia; E11.40 Type 2 diabetes mellitus with diabetic neuropathy, unspecified; E66.01 Morbid (severe) obesity due to excess calories; I70.235 Atherosclerosis of native arteries of right leg with ulceration of other part of foot; Z68.31 Body mass index [BMI] 31.0-31.9, adult | CPT/HCPCS: 11042; G0463 ==

== ENCOUNTER → 2022-05-16 | Outpatient (CLI) | payer MEDICARE, OTHER ==
[~2022-05-16] MED LIST changes: +CATHETER FLUSH 10 ML SYR IV PRN; +HOLD METFORMIN - RECEIVED CONTRAST 20 ML VIAL IV SCH; +IOHEXOL 350 MG/ML 100 ML (OMNIPAQUE 350) VIAL IV ONE; +NS 100 ML (IVPB) BAG IV ONE
[2022-05-16 12:59] LABS: CREATININE SERUM 0.76 MG/DL (0.60-1.30)
--- NOTE | 2022-05-16 15:20 | Diagnostic Imaging Report ---
PROCEDURE: CT Angio Abdomen/Pelvis with. TECHNIQUE: Multiple contiguous axial images were obtained through the abdomen and pelvis after the uneventful bolus administration of intravenous contrast. Sagittal and coronal MIP reconstructions with then performed. All CT scans use one or more of the following dose optimizing techniques: automated exposure control, MA and/or KvP adjustment based on patient size and exam type or iterative reconstruction. INDICATION: Left-sided abdominal pain. COMPARED made to a prior CT abdomen and pelvis from March 08, 2022. FINDINGS: The distal thoracic aorta demonstrates minimal evidence of atherosclerotic disease. There is minimal plaquing in the distal abdominal aorta. There is patent runoff to both groins with mild atherosclerotic disease within the external iliacs and common femoral arteries. There is a patent femoral artery bifurcation. The origins of the celiac, SMA, and inferior mesenteric arteries are widely patent. There is mild atherosclerotic stenosis at the origin of the left renal artery. There is no significant stenosis of the right. The lung bases are clear without pneumonia or edema. There is no pleural or pericardial effusion. There is a stable hemangioma within that the right hepatic lobe. The liver is otherwise unremarkable. The patient is status post cholecystectomy. There is no biliary dilatation. The pancreas is unremarkable. The spleen is normal in size. There is no adrenal mass. The kidneys enhance normally and appear nonobstructed. Stomach is nondistended. There is no small or large bowel dilation. There are no findings of bowel obstruction or abnormal bowel thickening. There is uncomplicated diverticulosis. The appendix demonstrates some slight prominence at its base but is air-filled without adjacent inflammatory change. There are no findings of an appendicitis. Bladder is unremarkable. The uterus and adnexa unremarkable. No free air, free fluid or abscess. There are no pathologically large abdominal or pelvic lymph nodes evident. There are advanced degenerative features within the spine but no findings of an acute or suspicious osseous abnormality. There does appear to be severe canal and foraminal stenosis at the L5-S1 level. There is a grade 1 anterolisthesis. IMPRESSION: 1. CTA of the abdomen and pelvis demonstrates mild atherosclerotic disease without findings of high-grade stenosis of the mesenteric or renal arteries. There are no findings of dissection. 2. No bowel obstruction or evidence of pneumatosis. 3. Uncomplicated diverticulosis. No evidence of appendicitis. 4. No free fluid, free air, abscess or adenopathy. Dictated by: Dictated on workstation # [id number]
== END ==
LOC: RAD 12:21
PROVIDERS: ATTEND Surgery
DX: K57.90 Diverticulosis of intestine, part unspecified, without perforation or abscess without bleeding (principal)
CPT/HCPCS: 36415; 74174; 82565; 84520

== ENCOUNTER → 2022-05-21 | Outpatient (CLI) | payer MEDICARE, OTHER ==
[~2022-05-21] MED LIST changes: -CATHETER FLUSH 10 ML SYR IV PRN; -HOLD METFORMIN - RECEIVED CONTRAST 20 ML VIAL IV SCH; -IOHEXOL 350 MG/ML 100 ML (OMNIPAQUE 350) VIAL IV ONE; -NS 100 ML (IVPB) BAG IV ONE
[2022-05-21 11:28] LABS: CALCIUM 9.4 MG/DL (8.5-10.1); CREATININE SERUM 0.93 MG/DL (0.60-1.30); POTASSIUM 3.9 MMOL/L (3.6-5.0)
== END ==
LOC: WOUNDCARE 09:56
PROVIDERS: ATTEND Family Medicine
DX: E11.621 Type 2 diabetes mellitus with foot ulcer (principal); L97.512 Non-pressure chronic ulcer of other part of right foot with fat layer exposed; E11.65 Type 2 diabetes mellitus with hyperglycemia; E11.40 Type 2 diabetes mellitus with diabetic neuropathy, unspecified; E11.52 Type 2 diabetes mellitus with diabetic peripheral angiopathy with gangrene; I96 Gangrene, not elsewhere classified; I70.235 Atherosclerosis of native arteries of right leg with ulceration of other part of foot; Z68.31 Body mass index [BMI] 31.0-31.9, adult
CPT/HCPCS: 11042; 80048; G0463; 36415

== ENCOUNTER → 2022-05-26 | Outpatient (CLI) | payer MEDICARE, OTHER ==
[~2022-05-26] MED LIST changes: +GADOTERATE 0.5 MMOL/ML (CLARISCAN) 15 ML VIAL IV ONE
--- NOTE | 2022-05-26 09:47 | Diagnostic Imaging Report ---
Exam: MRI right foot without and with intravenous contrast. Date: May 26, 2022. Indication: 67-year-old female, right foot ulcer. History of amputation. Diabetes. Comparison: MRI right foot August 30, 2021. Technique: Multiple pre and postcontrast MRI sequences of the right foot were obtained. Findings: There is amputation beyond the level of the mid to distal metatarsals of the right first through fifth digits. There is a skin defect volarly located of the medial aspect of the remaining portion of the right thigh with underlying abnormal signal in the soft tissues and soft tissue enhancement. There is no identified focal fluid collection or abscess. There is no T1 marrow signal loss or bone destruction. There is edema-like signal in the distal calcaneus in the inferior aspect of the proximal cuboid. There is no identified fracture line. There is no identified tendon tear or evidence of tenosynovitis. There is edema in the sinus tarsi. There is soft tissue edema lateral to the sinus tarsi and enhancement. There is a small calcaneocuboid joint effusion. Impression: 1. Soft tissue ulcer at the distal medial aspect of the remaining right foot without underlying abscess or osteomyelitis specifically at this location. 2. Small calcaneocuboid joint effusion with marrow edema in the distal calcaneus and focal edema in the inferior proximal aspect of the cuboid. There is also edema in the sinus tarsi and adjacent lateral subcutaneous tissues. Septic arthritis at the level of the calcaneocuboid articulation of be difficult to exclude. There is no T1 marrow signal loss or bone destruction to specifically diagnose osteomyelitis although this would be a differential consideration. This also could reflect a bone contusion and soft tissue contusion. Dictated by: Dictated on workstation # [id number]
== END ==
LOC: RAD 08:45
PROVIDERS: ATTEND Family Medicine
DX: E11.621 Type 2 diabetes mellitus with foot ulcer (principal); L97.512 Non-pressure chronic ulcer of other part of right foot with fat layer exposed; E11.65 Type 2 diabetes mellitus with hyperglycemia; E11.40 Type 2 diabetes mellitus with diabetic neuropathy, unspecified; E66.01 Morbid (severe) obesity due to excess calories; I70.235 Atherosclerosis of native arteries of right leg with ulceration of other part of foot; M00.9 Pyogenic arthritis, unspecified
CPT/HCPCS: 73720

== ENCOUNTER → 2022-05-28 | Outpatient (CLI) | payer MEDICARE, OTHER ==
[~2022-05-28] MED LIST changes: -GADOTERATE 0.5 MMOL/ML (CLARISCAN) 15 ML VIAL IV ONE
== END ==
LOC: WOUNDCARE 09:49
PROVIDERS: ATTEND Family Medicine
DX: L97.512 Non-pressure chronic ulcer of other part of right foot with fat layer exposed (principal); E11.621 Type 2 diabetes mellitus with foot ulcer; E11.65 Type 2 diabetes mellitus with hyperglycemia; E11.40 Type 2 diabetes mellitus with diabetic neuropathy, unspecified; E66.01 Morbid (severe) obesity due to excess calories; I70.235 Atherosclerosis of native arteries of right leg with ulceration of other part of foot; E11.52 Type 2 diabetes mellitus with diabetic peripheral angiopathy with gangrene
CPT/HCPCS: 11042; G0463

== ENCOUNTER → 2022-06-04 | Outpatient (CLI) | payer MEDICARE, OTHER ==
[2022-06-04 11:04] LABS: BASOPHILS % (AUTO) 1 % (0-10); EOSINOPHILS # (AUTO) 0.1 10^3/uL (0.0-0.3); EOSINOPHILS % (AUTO) 1 % (0-10); HEMATOCRIT 38 % (35-52); HEMOGLOBIN 12.6 g/dL (11.5-16.0); LYMPHOCYTES # (AUTO) 2.2 10^3/uL (1.0-4.0); LYMPHOCYTES % (AUTO) 25 % (12-44); MEAN CORPUSCULAR HEMOGLOBIN 32 pg (25-34); MEAN CORPUSCULAR HGB CONC 33 g/dL (32-36); MEAN CORPUSCULAR VOLUME 98 fL (80-99); MEAN PLATELET VOLUME 9.3 fL (9.0-12.2); MONOCYTES # (AUTO) 0.8 10^3/uL (0.0-1.0); MONOCYTES % (AUTO) 9 % (0-12); NEUTROPHILS # (AUTO) 5.7 10^3/uL (1.8-7.8); NEUTROPHILS % (AUTO) 64 % (42-75); PLATELET COUNT 202 10^3/uL (130-400); WHITE BLOOD COUNT 8.9 10^3/uL (4.3-11.0)
[2022-06-04 11:26] LABS: CALCIUM 9.8 MG/DL (8.5-10.1); CREATININE SERUM 0.92 MG/DL (0.60-1.30); POTASSIUM 4.1 MMOL/L (3.6-5.0)
== END ==
LOC: WOUNDCARE 09:44
PROVIDERS: ATTEND Family Medicine
DX: L97.912 Non-pressure chronic ulcer of unspecified part of right lower leg with fat layer exposed (principal); E11.621 Type 2 diabetes mellitus with foot ulcer; E11.65 Type 2 diabetes mellitus with hyperglycemia; E11.40 Type 2 diabetes mellitus with diabetic neuropathy, unspecified; E66.01 Morbid (severe) obesity due to excess calories; I70.235 Atherosclerosis of native arteries of right leg with ulceration of other part of foot; E11.52 Type 2 diabetes mellitus with diabetic peripheral angiopathy with gangrene; I96 Gangrene, not elsewhere classified
CPT/HCPCS: 80048; 82306; 83036; 84134; 85025; 87070; 87205; G0463; 36415; 99213

== ENCOUNTER → 2022-06-11 | Outpatient (CLI) | payer MEDICARE, OTHER | LOC: WOUNDCARE 09:23 | PROVIDERS: ATTEND Family Medicine | DX: E11.621 Type 2 diabetes mellitus with foot ulcer (principal); E11.65 Type 2 diabetes mellitus with hyperglycemia; E11.40 Type 2 diabetes mellitus with diabetic neuropathy, unspecified; L97.512 Non-pressure chronic ulcer of other part of right foot with fat layer exposed; E11.52 Type 2 diabetes mellitus with diabetic peripheral angiopathy with gangrene; I96 Gangrene, not elsewhere classified; E66.01 Morbid (severe) obesity due to excess calories; I70.235 Atherosclerosis of native arteries of right leg with ulceration of other part of foot; A49.9 Bacterial infection, unspecified; Z68.31 Body mass index [BMI] 31.0-31.9, adult | CPT/HCPCS: 11042; G0463 ==

== ENCOUNTER → 2022-06-18 | Outpatient (CLI) | payer MEDICARE, OTHER | LOC: WOUNDCARE 09:52 | PROVIDERS: ATTEND Family Medicine | DX: L97.512 Non-pressure chronic ulcer of other part of right foot with fat layer exposed (principal); E11.621 Type 2 diabetes mellitus with foot ulcer; E11.65 Type 2 diabetes mellitus with hyperglycemia; E11.40 Type 2 diabetes mellitus with diabetic neuropathy, unspecified; E66.01 Morbid (severe) obesity due to excess calories; I70.235 Atherosclerosis of native arteries of right leg with ulceration of other part of foot; A49.9 Bacterial infection, unspecified; E11.52 Type 2 diabetes mellitus with diabetic peripheral angiopathy with gangrene | CPT/HCPCS: 15275; G0463 ==

== ENCOUNTER → 2022-06-25 | Outpatient (CLI) | payer MEDICARE, OTHER | LOC: WOUNDCARE 09:48 | PROVIDERS: ATTEND Family Medicine | DX: L97.512 Non-pressure chronic ulcer of other part of right foot with fat layer exposed (principal); E11.621 Type 2 diabetes mellitus with foot ulcer; E11.65 Type 2 diabetes mellitus with hyperglycemia; E11.40 Type 2 diabetes mellitus with diabetic neuropathy, unspecified; E66.01 Morbid (severe) obesity due to excess calories; I70.235 Atherosclerosis of native arteries of right leg with ulceration of other part of foot; A49.9 Bacterial infection, unspecified; E11.52 Type 2 diabetes mellitus with diabetic peripheral angiopathy with gangrene | CPT/HCPCS: 15275; G0463 ==

== ENCOUNTER 2022-07-02 10:46 | Outpatient (RCR) | payer MEDICARE, OTHER ==
[2022-06-20 13:19] LABS: BASOPHILS # (AUTO) 0.1 10^3/uL (0.0-0.1); BASOPHILS % (AUTO) 1 % (0-10); EOSINOPHILS # (AUTO) 0.1 10^3/uL (0.0-0.3); EOSINOPHILS % (AUTO) 1 % (0-10); HEMATOCRIT 39 % (35-52); HEMOGLOBIN 12.7 g/dL (11.5-16.0); LYMPHOCYTES # (AUTO) 2.2 10^3/uL (1.0-4.0); LYMPHOCYTES % (AUTO) 26 % (12-44); MEAN CORPUSCULAR HEMOGLOBIN 32 pg (25-34); MEAN CORPUSCULAR HGB CONC 32 g/dL (32-36); MEAN CORPUSCULAR VOLUME 100 fL (80-99); MEAN PLATELET VOLUME 9.8 fL (9.0-12.2); MONOCYTES # (AUTO) 0.7 10^3/uL (0.0-1.0); MONOCYTES % (AUTO) 8 % (0-12); NEUTROPHILS # (AUTO) 5.6 10^3/uL (1.8-7.8); NEUTROPHILS % (AUTO) 64 % (42-75); PLATELET COUNT 197 10^3/uL (130-400); WHITE BLOOD COUNT 8.8 10^3/uL (4.3-11.0)
[2022-06-20 13:42] LABS: ALBUMIN 3.8 GM/DL (3.2-4.5); BILIRUBIN,TOTAL 0.4 MG/DL (0.1-1.0); CALCIUM 9.4 MG/DL (8.5-10.1); CREATININE SERUM 1.05 MG/DL (0.60-1.30); POTASSIUM 4.2 MMOL/L (3.6-5.0)
== END 2022-07-14 | disposition home or self-care (01) ==
LOC: ONC 10:46
PROVIDERS: ATTEND Internal Medicine Hematology & Oncology
DX: D50.9 Iron deficiency anemia, unspecified (principal); E11.51 Type 2 diabetes mellitus with diabetic peripheral angiopathy without gangrene; I25.10 Atherosclerotic heart disease of native coronary artery without angina pectoris; I10 Essential (primary) hypertension; I65.23 Occlusion and stenosis of bilateral carotid arteries; I34.0 Nonrheumatic mitral (valve) insufficiency; Z89.421 Acquired absence of other right toe(s)
CPT/HCPCS: 36415; 80053; 82728; 83540; 83550; 85025; 99213

== ENCOUNTER → 2022-07-02 | Outpatient (CLI) | payer MEDICARE, OTHER | LOC: WOUNDCARE 09:53 | PROVIDERS: ATTEND Family Medicine | DX: L97.512 Non-pressure chronic ulcer of other part of right foot with fat layer exposed (principal); E11.621 Type 2 diabetes mellitus with foot ulcer; E11.65 Type 2 diabetes mellitus with hyperglycemia; E11.40 Type 2 diabetes mellitus with diabetic neuropathy, unspecified; E66.01 Morbid (severe) obesity due to excess calories; I70.235 Atherosclerosis of native arteries of right leg with ulceration of other part of foot; E11.52 Type 2 diabetes mellitus with diabetic peripheral angiopathy with gangrene; I96 Gangrene, not elsewhere classified | CPT/HCPCS: 15275; G0463 ==

== ENCOUNTER → 2022-07-09 | Outpatient (CLI) | payer MEDICARE, OTHER | LOC: WOUNDCARE 09:52 | PROVIDERS: ATTEND Family Medicine | DX: E11.621 Type 2 diabetes mellitus with foot ulcer (principal); E11.65 Type 2 diabetes mellitus with hyperglycemia; E11.40 Type 2 diabetes mellitus with diabetic neuropathy, unspecified; L97.512 Non-pressure chronic ulcer of other part of right foot with fat layer exposed; E66.01 Morbid (severe) obesity due to excess calories; E11.52 Type 2 diabetes mellitus with diabetic peripheral angiopathy with gangrene; I96 Gangrene, not elsewhere classified; I70.235 Atherosclerosis of native arteries of right leg with ulceration of other part of foot; Z68.31 Body mass index [BMI] 31.0-31.9, adult | CPT/HCPCS: 15275; G0463 ==

== ENCOUNTER → 2022-07-16 | Outpatient (CLI) | payer MEDICARE, OTHER | LOC: WOUNDCARE 09:49 | PROVIDERS: ATTEND Family Medicine | DX: L97.512 Non-pressure chronic ulcer of other part of right foot with fat layer exposed (principal); E11.621 Type 2 diabetes mellitus with foot ulcer; E11.65 Type 2 diabetes mellitus with hyperglycemia; E11.40 Type 2 diabetes mellitus with diabetic neuropathy, unspecified; E66.01 Morbid (severe) obesity due to excess calories; I70.235 Atherosclerosis of native arteries of right leg with ulceration of other part of foot; E11.52 Type 2 diabetes mellitus with diabetic peripheral angiopathy with gangrene; I96 Gangrene, not elsewhere classified | CPT/HCPCS: 11042; 87070; 87205; A6212; G0463 ==

== ENCOUNTER → 2022-07-23 | Outpatient (CLI) | payer MEDICARE, OTHER | LOC: WOUNDCARE 09:43 | PROVIDERS: ATTEND Family Medicine | DX: L97.512 Non-pressure chronic ulcer of other part of right foot with fat layer exposed (principal); E11.621 Type 2 diabetes mellitus with foot ulcer; E11.65 Type 2 diabetes mellitus with hyperglycemia; E11.40 Type 2 diabetes mellitus with diabetic neuropathy, unspecified; E66.01 Morbid (severe) obesity due to excess calories; I70.235 Atherosclerosis of native arteries of right leg with ulceration of other part of foot; E11.52 Type 2 diabetes mellitus with diabetic peripheral angiopathy with gangrene; I96 Gangrene, not elsewhere classified | CPT/HCPCS: 11042; G0463 ==

== ENCOUNTER → 2022-07-30 | Outpatient (CLI) | payer MEDICARE, OTHER | LOC: WOUNDCARE 09:42 | PROVIDERS: ATTEND Family Medicine | DX: L97.512 Non-pressure chronic ulcer of other part of right foot with fat layer exposed (principal); E11.621 Type 2 diabetes mellitus with foot ulcer; E11.65 Type 2 diabetes mellitus with hyperglycemia; E11.40 Type 2 diabetes mellitus with diabetic neuropathy, unspecified; E66.01 Morbid (severe) obesity due to excess calories; I70.235 Atherosclerosis of native arteries of right leg with ulceration of other part of foot; E11.52 Type 2 diabetes mellitus with diabetic peripheral angiopathy with gangrene; I96 Gangrene, not elsewhere classified | CPT/HCPCS: 11042; G0463 ==

== ENCOUNTER → 2022-08-20 | Outpatient (CLI) | payer MEDICARE, OTHER ==
[~2022-08-20] MED LIST changes: +CLOP-31 PO; -CLOP75TA69 PO
== END ==
LOC: WOUNDCARE 09:56
PROVIDERS: ATTEND Family Medicine
DX: L97.512 Non-pressure chronic ulcer of other part of right foot with fat layer exposed (principal); E11.621 Type 2 diabetes mellitus with foot ulcer; E11.65 Type 2 diabetes mellitus with hyperglycemia; E11.40 Type 2 diabetes mellitus with diabetic neuropathy, unspecified; E66.01 Morbid (severe) obesity due to excess calories; I70.235 Atherosclerosis of native arteries of right leg with ulceration of other part of foot; E11.52 Type 2 diabetes mellitus with diabetic peripheral angiopathy with gangrene
CPT/HCPCS: 11042; G0463

== ENCOUNTER → 2022-09-10 | Outpatient (CLI) | payer MEDICARE, OTHER ==
[2022-09-10 11:00] LABS: BASOPHILS % (AUTO) 1 % (0-10); EOSINOPHILS # (AUTO) 0.1 10^3/uL (0.0-0.3); EOSINOPHILS % (AUTO) 1 % (0-10); HEMATOCRIT 34 % (35-52); LYMPHOCYTES # (AUTO) 1.4 10^3/uL (1.0-4.0); LYMPHOCYTES % (AUTO) 16 % (12-44); MEAN CORPUSCULAR HEMOGLOBIN 32 pg (25-34); MEAN CORPUSCULAR HGB CONC 33 g/dL (32-36); MEAN CORPUSCULAR VOLUME 97 fL (80-99); MEAN PLATELET VOLUME 9.2 fL (9.0-12.2); MONOCYTES # (AUTO) 0.7 10^3/uL (0.0-1.0); MONOCYTES % (AUTO) 8 % (0-12); NEUTROPHILS # (AUTO) 6.5 10^3/uL (1.8-7.8); NEUTROPHILS % (AUTO) 73 % (42-75); PLATELET COUNT 158 10^3/uL (130-400); WHITE BLOOD COUNT 8.9 10^3/uL (4.3-11.0)
[2022-09-10 11:18] LABS: CALCIUM 9.4 MG/DL (8.5-10.1); CREATININE SERUM 0.84 MG/DL (0.60-1.30); POTASSIUM 3.8 MMOL/L (3.6-5.0)
[2022-09-10 11:25] LABS: ERYTHROCYTE SEDIMENTATION RATE 52 MM/HR (0-30)
== END ==
LOC: WOUNDCARE 09:54
PROVIDERS: ATTEND Family Medicine
DX: L97.512 Non-pressure chronic ulcer of other part of right foot with fat layer exposed (principal); E11.621 Type 2 diabetes mellitus with foot ulcer; E11.65 Type 2 diabetes mellitus with hyperglycemia; E11.40 Type 2 diabetes mellitus with diabetic neuropathy, unspecified; E66.01 Morbid (severe) obesity due to excess calories; I70.235 Atherosclerosis of native arteries of right leg with ulceration of other part of foot; L92.8 Other granulomatous disorders of the skin and subcutaneous tissue; E11.52 Type 2 diabetes mellitus with diabetic peripheral angiopathy with gangrene
CPT/HCPCS: 11042; 80048; 83036; 84134; 85025; 85652; 86141; 87070; 87205; G0463; 36415; 87077

== ENCOUNTER → 2022-10-01 | Outpatient (CLI) | payer MEDICARE, OTHER | LOC: WOUNDCARE 09:59 | PROVIDERS: ATTEND Family Medicine | DX: E11.621 Type 2 diabetes mellitus with foot ulcer (principal); I96 Gangrene, not elsewhere classified; A49.9 Bacterial infection, unspecified; L97.512 Non-pressure chronic ulcer of other part of right foot with fat layer exposed; E11.65 Type 2 diabetes mellitus with hyperglycemia; E11.40 Type 2 diabetes mellitus with diabetic neuropathy, unspecified; E66.01 Morbid (severe) obesity due to excess calories; I70.235 Atherosclerosis of native arteries of right leg with ulceration of other part of foot; E11.52 Type 2 diabetes mellitus with diabetic peripheral angiopathy with gangrene; Z68.34 Body mass index [BMI] 34.0-34.9, adult | CPT/HCPCS: 11042; G0463 ==

== ENCOUNTER → 2022-10-06 | Outpatient (CLI) | payer MEDICARE, OTHER ==
[2022-10-06 11:03] LABS: HEMATOCRIT 33 % (35-52); HEMOGLOBIN 10.3 g/dL (11.5-16.0); MEAN CORPUSCULAR HEMOGLOBIN 32 pg (25-34); MEAN CORPUSCULAR HGB CONC 31 g/dL (32-36); MEAN CORPUSCULAR VOLUME 103 fL (80-99); MEAN PLATELET VOLUME 9.6 fL (9.0-12.2); PLATELET COUNT 167 10^3/uL (130-400); WHITE BLOOD COUNT 10.3 10^3/uL (4.3-11.0)
[2022-10-06 11:32] LABS: ALBUMIN 3.8 GM/DL (3.2-4.5); BILIRUBIN,TOTAL 0.3 MG/DL (0.1-1.0); CALCIUM 8.9 MG/DL (8.5-10.1); CREATININE SERUM 1.41 MG/DL (0.60-1.30); TOTAL PROTEIN 6.8 GM/DL (6.4-8.2)
[2022-10-06 11:45] LABS: POTASSIUM 5.3 MMOL/L (3.6-5.0)
--- NOTE | 2022-10-06 11:50 | Diagnostic Imaging Report ---
INDICATION: Abdominal pain. FINDINGS: There is no abnormal fecal loading. Bowel gas pattern is nonobstructive. There are some vascular calcifications, chronic. IMPRESSION: No acute appearing abnormality. Dictated by: Dictated on workstation # [id number]
--- NOTE | 2022-10-06 14:37 | Diagnostic Imaging Report ---
INDICATION: Shortness of breath and weight gain. TECHNIQUE: PA and lateral views were obtained. FINDINGS: The heart size, mediastinal configuration, and pulmonary vascularity are within normal limits. There is no pleural effusion, pneumothorax, or pneumonia. The osseous structures are unremarkable. IMPRESSION: No acute cardiopulmonary abnormality. Dictated by: Dictated on workstation # [id number]
--- NOTE | 2022-10-06 17:22 | Diagnostic Imaging Report ---
INDICATION: Crush injury, pain. Three view left wrist performed. There is radiocarpal, intercarpal and carpometacarpal arthritis as well as atherosclerotic vascular calcifications. There was however no appreciable fracture or traumatic malalignment. No retained opaque foreign body. IMPRESSION: Chronic findings, as described. Dictated by: Dictated on workstation # [id number]
== END ==
LOC: RAD 10:34
PROVIDERS: ATTEND Family Medicine
DX: M19.032 Primary osteoarthritis, left wrist (principal); R06.02 Shortness of breath; R10.9 Unspecified abdominal pain
CPT/HCPCS: 36415; 71046; 73110; 74018; 80053; 83880; 85027

== ENCOUNTER → 2022-10-22 | Outpatient (CLI) | payer MEDICARE, OTHER | LOC: WOUNDCARE 09:58 | PROVIDERS: ATTEND Family Medicine | DX: L97.512 Non-pressure chronic ulcer of other part of right foot with fat layer exposed (principal); E11.621 Type 2 diabetes mellitus with foot ulcer; E11.65 Type 2 diabetes mellitus with hyperglycemia; E11.40 Type 2 diabetes mellitus with diabetic neuropathy, unspecified; E66.01 Morbid (severe) obesity due to excess calories; I70.235 Atherosclerosis of native arteries of right leg with ulceration of other part of foot; E11.52 Type 2 diabetes mellitus with diabetic peripheral angiopathy with gangrene | CPT/HCPCS: 11042; G0463 ==

== ENCOUNTER → 2022-10-28 | Outpatient (CLI) | payer MEDICARE, OTHER | LOC: CARD 10:28 | PROVIDERS: ATTEND Nurse Practitioner Family | DX: I08.0 Rheumatic disorders of both mitral and aortic valves (principal) | CPT/HCPCS: 93306 ==

== ENCOUNTER → 2022-11-12 | Outpatient (CLI) | payer MEDICARE, OTHER ==
[2022-11-12 10:59] LABS: BILIRUBIN,URINE NEGATIVE (NEGATIVE); CLARITY,URINE CLEAR; COLOR,URINE YELLOW; GLUCOSE, URINE (UA) NEGATIVE (NEGATIVE); KETONES,URINE NEGATIVE (NEGATIVE); LEUKOCYTE ESTERASE ,URINE 2+ (NEGATIVE); NITRITE,URINE NEGATIVE (NEGATIVE); PH,URINE 5.5 (5-9); PROTEIN,URINE TRACE (NEGATIVE)
[2022-11-12 11:13] LABS: BACTERIA,URINE LARGE /HPF; WBC,URINE >100 /HPF
== END ==
LOC: LAB 09:55
PROVIDERS: ATTEND Family Medicine
DX: N39.0 Urinary tract infection, site not specified (principal)
CPT/HCPCS: 81000; 87088

== ENCOUNTER → 2022-11-12 | Outpatient (CLI) | payer MEDICARE, OTHER | LOC: WOUNDCARE 10:04 | PROVIDERS: ATTEND Family Medicine | DX: L97.512 Non-pressure chronic ulcer of other part of right foot with fat layer exposed (principal); E11.621 Type 2 diabetes mellitus with foot ulcer; E11.65 Type 2 diabetes mellitus with hyperglycemia; E11.40 Type 2 diabetes mellitus with diabetic neuropathy, unspecified; E66.01 Morbid (severe) obesity due to excess calories; I70.235 Atherosclerosis of native arteries of right leg with ulceration of other part of foot; E11.52 Type 2 diabetes mellitus with diabetic peripheral angiopathy with gangrene | CPT/HCPCS: 11042; G0463 ==

== ENCOUNTER → 2022-12-10 | Outpatient (CLI) | payer MEDICARE, OTHER ==
[2022-12-10 10:50] LABS: BASOPHILS # (AUTO) 0.1 10^3/uL (0.0-0.1); BASOPHILS % (AUTO) 1 % (0-10); EOSINOPHILS # (AUTO) 0.2 10^3/uL (0.0-0.3); EOSINOPHILS % (AUTO) 2 % (0-10); HEMATOCRIT 37 % (35-52); HEMOGLOBIN 12.2 g/dL (11.5-16.0); LYMPHOCYTES # (AUTO) 1.8 10^3/uL (1.0-4.0); LYMPHOCYTES % (AUTO) 21 % (12-44); MEAN CORPUSCULAR HEMOGLOBIN 31 pg (25-34); MEAN CORPUSCULAR HGB CONC 33 g/dL (32-36); MEAN CORPUSCULAR VOLUME 94 fL (80-99); MEAN PLATELET VOLUME 9.8 fL (9.0-12.2); MONOCYTES # (AUTO) 0.7 10^3/uL (0.0-1.0); MONOCYTES % (AUTO) 9 % (0-12); NEUTROPHILS # (AUTO) 5.9 10^3/uL (1.8-7.8); NEUTROPHILS % (AUTO) 68 % (42-75); PLATELET COUNT 181 10^3/uL (130-400); WHITE BLOOD COUNT 8.7 10^3/uL (4.3-11.0)
[2022-12-10 11:08] LABS: ALBUMIN 3.9 GM/DL (3.2-4.5); BILIRUBIN,TOTAL 0.3 MG/DL (0.1-1.0); CALCIUM 9.6 MG/DL (8.5-10.1); CREATININE SERUM 1.1 MG/DL (0.60-1.30); TOTAL PROTEIN 7.5 GM/DL (6.4-8.2)
[2022-12-10 11:10] LABS: ERYTHROCYTE SEDIMENTATION RATE 72 MM/HR (0-30)
== END ==
LOC: WOUNDCARE 09:51
PROVIDERS: ATTEND Family Medicine
DX: I96 Gangrene, not elsewhere classified (principal); I70.235 Atherosclerosis of native arteries of right leg with ulceration of other part of foot; L97.512 Non-pressure chronic ulcer of other part of right foot with fat layer exposed; E11.621 Type 2 diabetes mellitus with foot ulcer; E11.65 Type 2 diabetes mellitus with hyperglycemia; E11.40 Type 2 diabetes mellitus with diabetic neuropathy, unspecified; E66.01 Morbid (severe) obesity due to excess calories; Z68.34 Body mass index [BMI] 34.0-34.9, adult
CPT/HCPCS: 11042; 80053; 83036; 85025; 85652; 86141; 87070; 87205; G0463; 36415

== ENCOUNTER → 2022-12-31 | Outpatient (CLI) | payer MEDICARE, OTHER ==
[~2022-12-31] MED LIST changes: -INSU100I29 SQ; +INSU100I30 SQ
== END ==
LOC: WOUNDCARE 09:54
PROVIDERS: ATTEND Family Medicine
DX: E11.621 Type 2 diabetes mellitus with foot ulcer (principal); E11.65 Type 2 diabetes mellitus with hyperglycemia; E11.40 Type 2 diabetes mellitus with diabetic neuropathy, unspecified; E66.01 Morbid (severe) obesity due to excess calories; I70.235 Atherosclerosis of native arteries of right leg with ulceration of other part of foot; L97.512 Non-pressure chronic ulcer of other part of right foot with fat layer exposed; E11.52 Type 2 diabetes mellitus with diabetic peripheral angiopathy with gangrene
CPT/HCPCS: 11042; G0463

== ENCOUNTER 2023-01-06 11:07 | Outpatient (RCR) | payer MEDICARE, OTHER ==
[~2023-01-06 11:07] MED LIST changes: +ENAL-70 PO; -ENAL20TA16 PO
== END 2023-01-11 | disposition home or self-care (01) ==
PROVIDERS: ATTEND Family Medicine
DX: R26.89 Other abnormalities of gait and mobility (principal)

== ENCOUNTER → 2023-01-20 | Outpatient (CLI) | payer MEDICARE, OTHER ==
[2023-01-20 10:57] LABS: HEMATOCRIT 32 % (35-52); HEMOGLOBIN 10.2 g/dL (11.5-16.0); MEAN CORPUSCULAR HEMOGLOBIN 30 pg (25-34); MEAN CORPUSCULAR HGB CONC 32 g/dL (32-36); MEAN CORPUSCULAR VOLUME 95 fL (80-99); MEAN PLATELET VOLUME 9.3 fL (9.0-12.2); PLATELET COUNT 235 10^3/uL (130-400); WHITE BLOOD COUNT 8.7 10^3/uL (4.3-11.0)
[2023-01-20 11:23] LABS: ALBUMIN 3.8 GM/DL (3.2-4.5); BILIRUBIN,TOTAL 0.4 MG/DL (0.1-1.0); CALCIUM 8.6 MG/DL (8.5-10.1); CREATININE SERUM 1.24 MG/DL (0.60-1.30); POTASSIUM 3.4 MMOL/L (3.6-5.0); TOTAL PROTEIN 6.9 GM/DL (6.4-8.2)
--- NOTE | 2023-01-20 16:43 | Diagnostic Imaging Report ---
EXAMINATION: Chest, 2 views. HISTORY: Short of breath. COMPARISON: 10/06/2022. FINDINGS: There is mild left base atelectasis. Otherwise, the lungs are clear without edema or pneumonia. No pleural effusion or pneumothorax. Heart size is normal. IMPRESSION: Mild atelectasis; otherwise, clear lungs. Dictated by: Dictated on workstation # [id number]
== END ==
LOC: RAD 10:36
PROVIDERS: ATTEND Family Medicine
DX: J98.11 Atelectasis (principal)
CPT/HCPCS: 36415; 71046; 80053; 83880; 84443; 85027

== ENCOUNTER → 2023-01-21 | Outpatient (CLI) | payer MEDICARE, OTHER | LOC: WOUNDCARE 09:57 | PROVIDERS: ATTEND Family Medicine | DX: L97.512 Non-pressure chronic ulcer of other part of right foot with fat layer exposed (principal); E11.621 Type 2 diabetes mellitus with foot ulcer; E11.65 Type 2 diabetes mellitus with hyperglycemia; E11.40 Type 2 diabetes mellitus with diabetic neuropathy, unspecified; E66.01 Morbid (severe) obesity due to excess calories; I70.235 Atherosclerosis of native arteries of right leg with ulceration of other part of foot; E11.52 Type 2 diabetes mellitus with diabetic peripheral angiopathy with gangrene; I96 Gangrene, not elsewhere classified | CPT/HCPCS: 11042; G0463 ==

== ENCOUNTER 2023-02-03 12:48 | Outpatient (RCR) | payer MEDICARE, OTHER ==
[~2023-02-03 12:48] MED LIST changes: -LOSA100T57 PO; +LOSA100T58 PO
== END 2023-02-11 | disposition home or self-care (01) ==
PROVIDERS: ATTEND Family Medicine
DX: R26.89 Other abnormalities of gait and mobility (principal); M54.50 Low back pain, unspecified; R53.1 Weakness

== ENCOUNTER → 2023-02-03 | Outpatient (CLI) | payer MEDICARE, OTHER ==
[2023-02-03 12:46] LABS: POTASSIUM 3.9 MMOL/L (3.6-5.0)
[2023-02-03 12:47] LABS: CALCIUM 9.5 MG/DL (8.5-10.1)
[2023-02-03 12:52] LABS: CREATININE SERUM 1.15 MG/DL (0.60-1.30)
== END ==
LOC: LAB 12:08
PROVIDERS: ATTEND Family Medicine
DX: E11.9 Type 2 diabetes mellitus without complications (principal); N28.9 Disorder of kidney and ureter, unspecified; K59.00 Constipation, unspecified; I50.9 Heart failure, unspecified
CPT/HCPCS: 36415; 80048; 83880

== ENCOUNTER → 2023-02-11 | Outpatient (CLI) | payer MEDICARE, OTHER ==
[~2023-02-11] MED LIST changes: +LOSA100T57 PO; -LOSA100T58 PO
== END ==
LOC: WOUNDCARE 09:56
PROVIDERS: ATTEND Family Medicine
DX: L97.512 Non-pressure chronic ulcer of other part of right foot with fat layer exposed (principal); E11.621 Type 2 diabetes mellitus with foot ulcer; E11.65 Type 2 diabetes mellitus with hyperglycemia; E11.40 Type 2 diabetes mellitus with diabetic neuropathy, unspecified; E66.01 Morbid (severe) obesity due to excess calories; I70.235 Atherosclerosis of native arteries of right leg with ulceration of other part of foot; E11.52 Type 2 diabetes mellitus with diabetic peripheral angiopathy with gangrene
CPT/HCPCS: 11042; G0463

== ENCOUNTER → 2023-03-04 | Outpatient (CLI) | payer MEDICARE, OTHER ==
[~2023-03-04] MED LIST changes: -LOSA100T57 PO; +LOSA100T58 PO
== END ==
LOC: WOUNDCARE 09:59
PROVIDERS: ATTEND Family Medicine
DX: L97.512 Non-pressure chronic ulcer of other part of right foot with fat layer exposed (principal); E11.621 Type 2 diabetes mellitus with foot ulcer; E11.65 Type 2 diabetes mellitus with hyperglycemia; E11.40 Type 2 diabetes mellitus with diabetic neuropathy, unspecified; E66.01 Morbid (severe) obesity due to excess calories; I70.235 Atherosclerosis of native arteries of right leg with ulceration of other part of foot; E11.52 Type 2 diabetes mellitus with diabetic peripheral angiopathy with gangrene; I96 Gangrene, not elsewhere classified
CPT/HCPCS: 11042; G0463

== ENCOUNTER → 2023-03-06 | Outpatient (CLI) | payer MEDICARE, OTHER ==
[~2023-03-06] MED LIST changes: +GADOTERATE 0.5 MMOL/ML (CLARISCAN) 15 ML VIAL IV ONE
--- NOTE | 2023-03-06 15:02 | Diagnostic Imaging Report ---
Exam: MRI right thigh without and with intravenous contrast. Date: March 06, 2023. Indication: 67-year-old female, nonhealing wound of the right foot. Right foot pain. Comparison: MRI right foot May 26, 2022. Technique: Multiple pre and post contrast MRI sequences of the right foot were obtained. Findings: There are amputation changes at the level of the mid metatarsals. There is a volar skin ulcer at the level of the medial aspect of the remaining foot as well as a dorsal skin contour abnormality at this location. There is underlying abnormal signal in the subcutaneous tissues without a focal fluid collection or abscess. There is severe fatty atrophy of the imaged foot musculature most consistent with polyneuropathy. There is no evidence of tenosynovitis. The Lisfranc ligament proper is intact. There is no acute fracture, bone contusion or evidence of osteonecrosis. There is no evidence of osteomyelitis. There is a small ganglion cyst in the sinus tarsi. Impression: 1. Volar skin ulcer at the level of the medial aspect of the remaining right foot without focal fluid collection or abscess. 2. No evidence of osteomyelitis or other acute osseous abnormality. 3. No evidence of tenosynovitis. 4. Severe diffuse fatty atrophy of the imaged foot musculature compatible with polyneuropathy. Dictated by: Dictated on workstation # [id number]
== END ==
LOC: RAD 12:57
PROVIDERS: ATTEND Family Medicine
DX: E32.8 Other diseases of thymus (principal); E11.621 Type 2 diabetes mellitus with foot ulcer; L97.512 Non-pressure chronic ulcer of other part of right foot with fat layer exposed; E11.65 Type 2 diabetes mellitus with hyperglycemia; E11.40 Type 2 diabetes mellitus with diabetic neuropathy, unspecified; E66.01 Morbid (severe) obesity due to excess calories; I70.235 Atherosclerosis of native arteries of right leg with ulceration of other part of foot
CPT/HCPCS: 73720

== ENCOUNTER → 2023-03-25 | Outpatient (CLI) | payer MEDICARE, OTHER ==
[~2023-03-25] MED LIST changes: -GADOTERATE 0.5 MMOL/ML (CLARISCAN) 15 ML VIAL IV ONE
== END ==
LOC: WOUNDCARE 09:57
PROVIDERS: ATTEND Family Medicine
DX: E11.621 Type 2 diabetes mellitus with foot ulcer (principal); E11.65 Type 2 diabetes mellitus with hyperglycemia; E11.40 Type 2 diabetes mellitus with diabetic neuropathy, unspecified; E66.01 Morbid (severe) obesity due to excess calories; L97.513 Non-pressure chronic ulcer of other part of right foot with necrosis of muscle; I70.235 Atherosclerosis of native arteries of right leg with ulceration of other part of foot; T87.43 Infection of amputation stump, right lower extremity; E11.52 Type 2 diabetes mellitus with diabetic peripheral angiopathy with gangrene
CPT/HCPCS: 11043; 87070; 87205; A6260; G0463

== ENCOUNTER → 2023-04-01 | Outpatient (CLI) | payer MEDICARE, OTHER | LOC: WOUNDCARE 10:00 | PROVIDERS: ATTEND Family Medicine | DX: E11.621 Type 2 diabetes mellitus with foot ulcer (principal); I10 Essential (primary) hypertension; E11.40 Type 2 diabetes mellitus with diabetic neuropathy, unspecified; L97.512 Non-pressure chronic ulcer of other part of right foot with fat layer exposed | CPT/HCPCS: 97605; G0463 ==

== ENCOUNTER → 2023-04-08 | Outpatient (CLI) | payer MEDICARE, OTHER | LOC: WOUNDCARE 09:52 | PROVIDERS: ATTEND Family Medicine | DX: E11.621 Type 2 diabetes mellitus with foot ulcer (principal); E11.65 Type 2 diabetes mellitus with hyperglycemia; L97.513 Non-pressure chronic ulcer of other part of right foot with necrosis of muscle; E66.01 Morbid (severe) obesity due to excess calories; I70.235 Atherosclerosis of native arteries of right leg with ulceration of other part of foot; T87.43 Infection of amputation stump, right lower extremity; E11.52 Type 2 diabetes mellitus with diabetic peripheral angiopathy with gangrene | CPT/HCPCS: 11043; 97605; G0463 ==

== ENCOUNTER → 2023-04-15 | Outpatient (CLI) | payer MEDICARE, OTHER | LOC: WOUNDCARE 10:04 | PROVIDERS: ATTEND Family Medicine | DX: E11.621 Type 2 diabetes mellitus with foot ulcer (principal); E11.65 Type 2 diabetes mellitus with hyperglycemia; E11.40 Type 2 diabetes mellitus with diabetic neuropathy, unspecified; E66.01 Morbid (severe) obesity due to excess calories; I70.235 Atherosclerosis of native arteries of right leg with ulceration of other part of foot; L97.513 Non-pressure chronic ulcer of other part of right foot with necrosis of muscle; T87.43 Infection of amputation stump, right lower extremity; E11.22 Type 2 diabetes mellitus with diabetic chronic kidney disease; N18.30 Chronic kidney disease, stage 3 unspecified; E11.52 Type 2 diabetes mellitus with diabetic peripheral angiopathy with gangrene | CPT/HCPCS: 99213 ==

== ENCOUNTER → 2023-04-22 | Outpatient (CLI) | payer MEDICARE, OTHER | LOC: WOUNDCARE 09:48 | PROVIDERS: ATTEND Family Medicine | DX: E11.621 Type 2 diabetes mellitus with foot ulcer (principal); E11.65 Type 2 diabetes mellitus with hyperglycemia; E11.40 Type 2 diabetes mellitus with diabetic neuropathy, unspecified; E66.01 Morbid (severe) obesity due to excess calories; I70.235 Atherosclerosis of native arteries of right leg with ulceration of other part of foot; L97.513 Non-pressure chronic ulcer of other part of right foot with necrosis of muscle; T87.43 Infection of amputation stump, right lower extremity; E11.22 Type 2 diabetes mellitus with diabetic chronic kidney disease; N18.30 Chronic kidney disease, stage 3 unspecified; E11.52 Type 2 diabetes mellitus with diabetic peripheral angiopathy with gangrene | CPT/HCPCS: 11042; G0463 ==

== ENCOUNTER → 2023-04-29 | Outpatient (CLI) | payer MEDICARE, OTHER | LOC: WOUNDCARE 09:48 | PROVIDERS: ATTEND Family Medicine | DX: E11.621 Type 2 diabetes mellitus with foot ulcer (principal); E11.65 Type 2 diabetes mellitus with hyperglycemia; E11.40 Type 2 diabetes mellitus with diabetic neuropathy, unspecified; E66.01 Morbid (severe) obesity due to excess calories; I70.235 Atherosclerosis of native arteries of right leg with ulceration of other part of foot; L97.513 Non-pressure chronic ulcer of other part of right foot with necrosis of muscle; T87.43 Infection of amputation stump, right lower extremity; E11.22 Type 2 diabetes mellitus with diabetic chronic kidney disease; N18.30 Chronic kidney disease, stage 3 unspecified; E11.52 Type 2 diabetes mellitus with diabetic peripheral angiopathy with gangrene; I96 Gangrene, not elsewhere classified | CPT/HCPCS: 17250; G0463 ==

== ENCOUNTER → 2023-05-06 | Outpatient (CLI) | payer MEDICARE, OTHER | LOC: WOUNDCARE 09:51 | PROVIDERS: ATTEND Family Medicine | DX: E11.621 Type 2 diabetes mellitus with foot ulcer (principal); I70.235 Atherosclerosis of native arteries of right leg with ulceration of other part of foot; L97.513 Non-pressure chronic ulcer of other part of right foot with necrosis of muscle; E11.65 Type 2 diabetes mellitus with hyperglycemia; E11.40 Type 2 diabetes mellitus with diabetic neuropathy, unspecified; E66.01 Morbid (severe) obesity due to excess calories; E11.22 Type 2 diabetes mellitus with diabetic chronic kidney disease; N18.30 Chronic kidney disease, stage 3 unspecified | CPT/HCPCS: 11042; G0463 ==

== ENCOUNTER → 2023-05-13 | Outpatient (CLI) | payer MEDICARE, OTHER | LOC: WOUNDCARE 09:51 | PROVIDERS: ATTEND Family Medicine | DX: E11.621 Type 2 diabetes mellitus with foot ulcer (principal); E11.65 Type 2 diabetes mellitus with hyperglycemia; E11.40 Type 2 diabetes mellitus with diabetic neuropathy, unspecified; E66.01 Morbid (severe) obesity due to excess calories; I70.235 Atherosclerosis of native arteries of right leg with ulceration of other part of foot; L97.513 Non-pressure chronic ulcer of other part of right foot with necrosis of muscle; E11.22 Type 2 diabetes mellitus with diabetic chronic kidney disease; N18.30 Chronic kidney disease, stage 3 unspecified | CPT/HCPCS: 11042; G0463 ==

== ENCOUNTER → 2023-05-20 | Outpatient (CLI) | payer MEDICARE, OTHER ==
[~2023-05-20] MED LIST changes: +ROPI0.5T37 PO; -ROPI0.5T4 PO
== END ==
LOC: WOUNDCARE 09:53
PROVIDERS: ATTEND Family Medicine
DX: E11.621 Type 2 diabetes mellitus with foot ulcer (principal); E11.65 Type 2 diabetes mellitus with hyperglycemia; E11.40 Type 2 diabetes mellitus with diabetic neuropathy, unspecified; E66.01 Morbid (severe) obesity due to excess calories; I70.235 Atherosclerosis of native arteries of right leg with ulceration of other part of foot; L97.513 Non-pressure chronic ulcer of other part of right foot with necrosis of muscle; E11.22 Type 2 diabetes mellitus with diabetic chronic kidney disease; N18.30 Chronic kidney disease, stage 3 unspecified; E11.52 Type 2 diabetes mellitus with diabetic peripheral angiopathy with gangrene; I96 Gangrene, not elsewhere classified
CPT/HCPCS: 11042; G0463

== ENCOUNTER → 2023-05-27 | Outpatient (CLI) | payer MEDICARE, OTHER | LOC: WOUNDCARE 09:59 | PROVIDERS: ATTEND Family Medicine | DX: E11.621 Type 2 diabetes mellitus with foot ulcer (principal); E11.65 Type 2 diabetes mellitus with hyperglycemia; E11.40 Type 2 diabetes mellitus with diabetic neuropathy, unspecified; E66.01 Morbid (severe) obesity due to excess calories; I70.235 Atherosclerosis of native arteries of right leg with ulceration of other part of foot; L97.513 Non-pressure chronic ulcer of other part of right foot with necrosis of muscle; E11.22 Type 2 diabetes mellitus with diabetic chronic kidney disease; N18.30 Chronic kidney disease, stage 3 unspecified; E11.52 Type 2 diabetes mellitus with diabetic peripheral angiopathy with gangrene | CPT/HCPCS: 11042; G0463 ==

== ENCOUNTER → 2023-06-03 | Outpatient (CLI) | payer MEDICARE, OTHER | LOC: WOUNDCARE 09:48 | PROVIDERS: ATTEND Family Medicine | DX: E11.621 Type 2 diabetes mellitus with foot ulcer (principal); E11.65 Type 2 diabetes mellitus with hyperglycemia; E11.40 Type 2 diabetes mellitus with diabetic neuropathy, unspecified; I96 Gangrene, not elsewhere classified; I70.235 Atherosclerosis of native arteries of right leg with ulceration of other part of foot; L97.513 Non-pressure chronic ulcer of other part of right foot with necrosis of muscle; N18.30 Chronic kidney disease, stage 3 unspecified; E66.01 Morbid (severe) obesity due to excess calories; Z68.34 Body mass index [BMI] 34.0-34.9, adult | CPT/HCPCS: 15275; G0463 ==

== ENCOUNTER → 2023-06-17 | Outpatient (CLI) | payer MEDICARE, OTHER ==
--- NOTE | 2023-06-17 09:15 | Diagnostic Imaging Report ---
Indication: Right knee pain. Time of Exam: 8:52 AM 4 views of the right knee were obtained. There is mild medial and patellofemoral compartmental degenerative changes and joint space narrowing. Lateral compartments fairly well maintained. Articular surfaces are smooth. There is some spurring of the tibial spines. No fracture, dislocation or effusion is detected. Impression: Mild degenerative changes. No acute abnormality is detected. Dictated by: Dictated on workstation # [id number]
== END ==
LOC: ORTHO 08:39
PROVIDERS: ATTEND Orthopaedic Surgery
DX: M17.11 Unilateral primary osteoarthritis, right knee (principal)
CPT/HCPCS: 20610; 73564; G0463; 99203

== ENCOUNTER → 2023-06-17 | Outpatient (CLI) | payer MEDICARE, OTHER | LOC: WOUNDCARE 09:35 | PROVIDERS: ATTEND Family Medicine | DX: I96 Gangrene, not elsewhere classified (principal); E11.621 Type 2 diabetes mellitus with foot ulcer; E11.65 Type 2 diabetes mellitus with hyperglycemia; E11.40 Type 2 diabetes mellitus with diabetic neuropathy, unspecified; I70.235 Atherosclerosis of native arteries of right leg with ulceration of other part of foot; L97.513 Non-pressure chronic ulcer of other part of right foot with necrosis of muscle; N18.30 Chronic kidney disease, stage 3 unspecified; E66.01 Morbid (severe) obesity due to excess calories; Z68.34 Body mass index [BMI] 34.0-34.9, adult | CPT/HCPCS: 15275; G0463 ==

== ENCOUNTER → 2023-06-24 | Outpatient (CLI) | payer MEDICARE, OTHER | LOC: WOUNDCARE 09:55 | PROVIDERS: ATTEND Family Medicine | DX: I96 Gangrene, not elsewhere classified (principal); E11.621 Type 2 diabetes mellitus with foot ulcer; E11.65 Type 2 diabetes mellitus with hyperglycemia; E11.40 Type 2 diabetes mellitus with diabetic neuropathy, unspecified; I70.235 Atherosclerosis of native arteries of right leg with ulceration of other part of foot; L97.513 Non-pressure chronic ulcer of other part of right foot with necrosis of muscle; N18.30 Chronic kidney disease, stage 3 unspecified; E66.01 Morbid (severe) obesity due to excess calories; Z68.34 Body mass index [BMI] 34.0-34.9, adult | CPT/HCPCS: 15275; A6209; G0463 ==

== ENCOUNTER → 2023-06-26 | Outpatient (CLI) | payer MEDICARE, OTHER | LOC: WOUNDCARE 09:48 | PROVIDERS: ATTEND Family Medicine | DX: E11.621 Type 2 diabetes mellitus with foot ulcer (principal); E11.65 Type 2 diabetes mellitus with hyperglycemia; E11.40 Type 2 diabetes mellitus with diabetic neuropathy, unspecified; E66.01 Morbid (severe) obesity due to excess calories; I70.235 Atherosclerosis of native arteries of right leg with ulceration of other part of foot; L97.513 Non-pressure chronic ulcer of other part of right foot with necrosis of muscle; E11.22 Type 2 diabetes mellitus with diabetic chronic kidney disease; N18.30 Chronic kidney disease, stage 3 unspecified; E11.52 Type 2 diabetes mellitus with diabetic peripheral angiopathy with gangrene | CPT/HCPCS: 99212 ==

== ENCOUNTER → 2023-07-01 | Outpatient (CLI) | payer MEDICARE, OTHER | LOC: WOUNDCARE 09:58 | PROVIDERS: ATTEND Family Medicine | DX: E11.621 Type 2 diabetes mellitus with foot ulcer (principal); E11.65 Type 2 diabetes mellitus with hyperglycemia; E11.40 Type 2 diabetes mellitus with diabetic neuropathy, unspecified; E66.01 Morbid (severe) obesity due to excess calories; I70.235 Atherosclerosis of native arteries of right leg with ulceration of other part of foot; L97.513 Non-pressure chronic ulcer of other part of right foot with necrosis of muscle; E11.22 Type 2 diabetes mellitus with diabetic chronic kidney disease; N18.30 Chronic kidney disease, stage 3 unspecified; E11.52 Type 2 diabetes mellitus with diabetic peripheral angiopathy with gangrene | CPT/HCPCS: 15275; G0463 ==

== ENCOUNTER → 2023-07-08 | Outpatient (CLI) | payer MEDICARE, OTHER | LOC: WOUNDCARE 09:59 | PROVIDERS: ATTEND Family Medicine | DX: I96 Gangrene, not elsewhere classified (principal); E11.621 Type 2 diabetes mellitus with foot ulcer; E11.65 Type 2 diabetes mellitus with hyperglycemia; E11.40 Type 2 diabetes mellitus with diabetic neuropathy, unspecified; I70.235 Atherosclerosis of native arteries of right leg with ulceration of other part of foot; L97.513 Non-pressure chronic ulcer of other part of right foot with necrosis of muscle; N18.30 Chronic kidney disease, stage 3 unspecified; E66.01 Morbid (severe) obesity due to excess calories; Z68.34 Body mass index [BMI] 34.0-34.9, adult | CPT/HCPCS: 15275; G0463 ==

== ENCOUNTER → 2023-07-15 | Outpatient (CLI) | payer MEDICARE, OTHER ==
[2023-07-15 10:43] LABS: BASOPHILS % (AUTO) 1 % (0-10); EOSINOPHILS # (AUTO) 0.1 10^3/uL (0.0-0.3); EOSINOPHILS % (AUTO) 2 % (0-10); HEMATOCRIT 37 % (35-52); HEMOGLOBIN 11.7 g/dL (11.5-16.0); LYMPHOCYTES # (AUTO) 1.7 10^3/uL (1.0-4.0); LYMPHOCYTES % (AUTO) 21 % (12-44); MEAN CORPUSCULAR HEMOGLOBIN 30 pg (25-34); MEAN CORPUSCULAR HGB CONC 31 g/dL (32-36); MEAN CORPUSCULAR VOLUME 97 fL (80-99); MEAN PLATELET VOLUME 9.4 fL (9.0-12.2); MONOCYTES # (AUTO) 0.7 10^3/uL (0.0-1.0); MONOCYTES % (AUTO) 8 % (0-12); NEUTROPHILS # (AUTO) 5.6 10^3/uL (1.8-7.8); NEUTROPHILS % (AUTO) 68 % (42-75); PLATELET COUNT 200 10^3/uL (130-400); WHITE BLOOD COUNT 8.2 10^3/uL (4.3-11.0)
[2023-07-15 11:14] LABS: BILIRUBIN,TOTAL 0.4 MG/DL (0.1-1.0); CALCIUM 9.7 MG/DL (8.5-10.1); CREATININE SERUM 1.68 MG/DL (0.60-1.30); POTASSIUM 4.6 MMOL/L (3.6-5.0); TOTAL PROTEIN 7.5 GM/DL (6.4-8.2)
== END ==
LOC: WOUNDCARE 09:52
PROVIDERS: ATTEND Family Medicine
DX: E11.621 Type 2 diabetes mellitus with foot ulcer (principal); E11.65 Type 2 diabetes mellitus with hyperglycemia; I70.235 Atherosclerosis of native arteries of right leg with ulceration of other part of foot; E11.40 Type 2 diabetes mellitus with diabetic neuropathy, unspecified; L97.513 Non-pressure chronic ulcer of other part of right foot with necrosis of muscle; N18.30 Chronic kidney disease, stage 3 unspecified; Z68.34 Body mass index [BMI] 34.0-34.9, adult; E66.01 Morbid (severe) obesity due to excess calories
CPT/HCPCS: 15275; 80053; 83036; 85025; G0463; 36415

== ENCOUNTER 2023-07-22 10:50 | Outpatient (RCR) | payer MEDICARE, OTHER | END 2023-07-28 10:00 | disposition home or self-care (01) | PROVIDERS: ATTEND Family Medicine | DX: M67.01 Short Achilles tendon (acquired), right ankle (principal); E11.621 Type 2 diabetes mellitus with foot ulcer; I10 Essential (primary) hypertension ==

== ENCOUNTER → 2023-07-22 | Outpatient (CLI) | payer MEDICARE, OTHER | LOC: WOUNDCARE 10:01 | PROVIDERS: ATTEND Family Medicine | DX: E11.621 Type 2 diabetes mellitus with foot ulcer (principal); E11.65 Type 2 diabetes mellitus with hyperglycemia; E11.40 Type 2 diabetes mellitus with diabetic neuropathy, unspecified; L97.513 Non-pressure chronic ulcer of other part of right foot with necrosis of muscle; I70.235 Atherosclerosis of native arteries of right leg with ulceration of other part of foot; N18.30 Chronic kidney disease, stage 3 unspecified; E66.01 Morbid (severe) obesity due to excess calories; Z68.34 Body mass index [BMI] 34.0-34.9, adult | CPT/HCPCS: 15275; G0463 ==

== ENCOUNTER → 2023-07-29 | Outpatient (CLI) | payer MEDICARE, OTHER | LOC: WOUNDCARE 09:55 | PROVIDERS: ATTEND Family Medicine | DX: E11.621 Type 2 diabetes mellitus with foot ulcer (principal); I96 Gangrene, not elsewhere classified; E11.65 Type 2 diabetes mellitus with hyperglycemia; E11.40 Type 2 diabetes mellitus with diabetic neuropathy, unspecified; N18.30 Chronic kidney disease, stage 3 unspecified; I70.235 Atherosclerosis of native arteries of right leg with ulceration of other part of foot; L97.513 Non-pressure chronic ulcer of other part of right foot with necrosis of muscle; E66.01 Morbid (severe) obesity due to excess calories; Z68.34 Body mass index [BMI] 34.0-34.9, adult | CPT/HCPCS: 15275; G0463 ==

== ENCOUNTER → 2023-08-05 | Outpatient (CLI) | payer MEDICARE, OTHER | LOC: WOUNDCARE 09:55 | PROVIDERS: ATTEND Family Medicine | DX: E11.621 Type 2 diabetes mellitus with foot ulcer (principal); E11.65 Type 2 diabetes mellitus with hyperglycemia; E11.40 Type 2 diabetes mellitus with diabetic neuropathy, unspecified; E66.01 Morbid (severe) obesity due to excess calories; E11.22 Type 2 diabetes mellitus with diabetic chronic kidney disease; N18.30 Chronic kidney disease, stage 3 unspecified; I70.235 Atherosclerosis of native arteries of right leg with ulceration of other part of foot; L97.513 Non-pressure chronic ulcer of other part of right foot with necrosis of muscle; E11.52 Type 2 diabetes mellitus with diabetic peripheral angiopathy with gangrene; I96 Gangrene, not elsewhere classified | CPT/HCPCS: 15275; G0463 ==

== ENCOUNTER → 2023-08-12 | Outpatient (CLI) | payer MEDICARE, OTHER | LOC: WOUNDCARE 09:57 | PROVIDERS: ATTEND Family Medicine | DX: E11.621 Type 2 diabetes mellitus with foot ulcer (principal); E11.65 Type 2 diabetes mellitus with hyperglycemia; E11.40 Type 2 diabetes mellitus with diabetic neuropathy, unspecified; E66.01 Morbid (severe) obesity due to excess calories; I70.235 Atherosclerosis of native arteries of right leg with ulceration of other part of foot; L97.513 Non-pressure chronic ulcer of other part of right foot with necrosis of muscle; E11.22 Type 2 diabetes mellitus with diabetic chronic kidney disease; N18.30 Chronic kidney disease, stage 3 unspecified; E11.52 Type 2 diabetes mellitus with diabetic peripheral angiopathy with gangrene | CPT/HCPCS: 11042; A6021; G0463 ==

== ENCOUNTER → 2023-08-19 | Outpatient (CLI) | payer MEDICARE, OTHER | LOC: WOUNDCARE 10:02 | PROVIDERS: ATTEND Family Medicine | DX: E11.621 Type 2 diabetes mellitus with foot ulcer (principal); E11.65 Type 2 diabetes mellitus with hyperglycemia; E11.40 Type 2 diabetes mellitus with diabetic neuropathy, unspecified; E66.01 Morbid (severe) obesity due to excess calories; I70.235 Atherosclerosis of native arteries of right leg with ulceration of other part of foot; L97.513 Non-pressure chronic ulcer of other part of right foot with necrosis of muscle; E11.22 Type 2 diabetes mellitus with diabetic chronic kidney disease; N18.30 Chronic kidney disease, stage 3 unspecified | CPT/HCPCS: 11042; G0463 ==